=== PATIENT | female | born 1960 | race Caucasian/White ===

== ENCOUNTER 2016-10-13 09:05 | Outpatient (CLI) | payer OTHER ==
[2016-10-13] MEDS ORDERED: IOPAMIDOL-300 50 ML VIAL PO ONE (10:11)
[2016-10-13] MEDS ORDERED: IOPAMIDOL-300 100 ML VIAL IVP ONE (10:11)
[2016-10-14] MEDS ORDERED: IOPAMIDOL-300 50 ML VIAL PO ONE (08:55)
== END 2016-10-13 09:06 | disposition home or self-care (01) ==
DX: R10.9 Unspecified abdominal pain (principal); R19.7 Diarrhea, unspecified
CPT/HCPCS: 74177; Q9967

== ENCOUNTER 2018-10-05 11:27 | Outpatient (CLI) | payer BC ==
--- NOTE | 2018-10-06 16:45 | Mammography Report ---
Reason: SCREENING MAMMOGRAM FOR BREAST CANCER Procedure Date: 10/05/2018 Accession Number: [id number] / [id number] Procedure: MGN - Screening Mammo Dig Bilat CPT Code: FULL RESULT: EXAM: Screening Mammo Dig Bilat DATE: 10/05/2018 11:47 AM CLINICAL HISTORY: Routine screening. No reported personal history of breast cancer. Family history breast cancer in grandmother age 70 TECHNIQUE: Bilateral CC and MLO views were obtained. COMPARISON: None are available at the time of this dictation. Prior mammograms are from over 10 years ago. FINDINGS: The breasts demonstrate scattered fibroglandular densities bilaterally. Right breast: There is motion artifact noted of the inferior breast on the right MLO view. There is artifact which obscures a portion of the posterior lateral right breast on the cc view. Recommend technical repeat of right breast mammogram. Left breast: On the left CC view only 5 cm deep to the nipple, there is a 4 mm one view asymmetry. No suspicious calcifications. IMPRESSION: Incomplete examination RECOMMENDATION: Right breast: Technically limited right breast mammogram for reasons detailed above. Incomplete. BI-RADS Category 0. Recommend technical repeat. Left breast: 4 mm one view asymmetry left CC view. Incomplete. BI-RADS Category 0. Recommend additional views. BI-RADS CATEGORY 0: Incomplete examination STANDARD QUALIFYING STATEMENTS: 1. This examination was reviewed with the aid of Computer-Aided Detection (CAD). 2. A negative or benign imaging report should not preclude biopsy if clinically suspicious findings are present. 3. Dense breasts may obscure an underlying neoplasm. 4. This examination was reviewed without the aid of 3D breast imaging (tomosynthesis).
== END 2018-10-05 11:28 | disposition home or self-care (01) ==
LOC: DI.N 11:27
PROVIDERS: ATTEND Nurse Practitioner Primary Care
DX: Z12.31 Encounter for screening mammogram for malignant neoplasm of breast (principal); R92.8 Other abnormal and inconclusive findings on diagnostic imaging of breast; Z80.3 Family history of malignant neoplasm of breast
CPT/HCPCS: 77067

== ENCOUNTER 2018-10-20 08:42 | Outpatient (CLI) | payer BC ==
--- NOTE | 2018-10-20 11:30 | Mammography Report ---
Reason: ABNORMAL MAMMOGRAM Procedure Date: 10/20/2018 Accession Number: [id number] / [id number] Procedure: MARIA M - Diag Special Views Dig LT CPT Code: FULL RESULT: EXAM: Diag Special Views Dig LT DATE: 10/20/2018 9:34 AM CLINICAL HISTORY: Technical recall of right breast imaging. Diagnostic examination. Left breast 1 view asymmetry. TECHNIQUE: The right MLO view was performed. Left breast ML, CC and spot CC views are obtained. COMPARISON: 10/05/2018. FINDINGS: The breasts demonstrate scattered fibroglandular densities bilaterally. The previously seen left breast asymmetry resolves with 3-D imaging as well as spot compression view. No suspicious mass, architectural distortion or calcifications are seen in either breast. IMPRESSION: Negative examination RECOMMENDATION: Recommend routine annual Screening mammography unless otherwise clinically indicated. BIRADS CATEGORY 1: Negative STANDARD QUALIFYING STATEMENTS: 1. This examination was not reviewed with the aid of Computer-Aided Detection (CAD). 2. A negative or benign imaging report should not delay biopsy if clinically suspicious findings are present. Consider surgical consultation if warrented. More than 5% of cancers are not identified by imaging. 3. Dense breasts may obscure an underlying neoplasm. 4. This examination was reviewed with the aid of 3D imaging (tomography).
== END 2018-10-20 08:43 | disposition home or self-care (01) ==
LOC: DI 08:42
PROVIDERS: ATTEND Family Medicine
DX: R92.2 Inconclusive mammogram (principal)

== ENCOUNTER 2019-08-17 06:13 | Day surgery (SDC) | payer BC ==
[~2019-08-17 06:13] MED LIST: IOVERSOL 320 100 ML VIAL IVP ONE
[2019-08-17] MEDS ORDERED: LIDOCAINE-MPF 2% 5 ML VIAL IM ONE (06:14)
[2019-08-17] MEDS ORDERED: MIDAZOLAM 2 MG/2 ML VIAL IVP ONE (06:14)
[2019-08-17] MEDS ORDERED: GLYCOPYRROLATE 1 MG/5 ML VIAL IVP ONE (06:14)
[2019-08-17] MEDS ORDERED: PROPOFOL 200 MG/20 ML VIAL IVP ONE (06:14)
[2019-08-17] MEDS ORDERED: CEFAZOLIN SODIUM IN 0.9 % NACL 2 GM/100 ML BAG IV ONE (06:17)
[2019-08-17] MEDS ORDERED: LACTATED RINGERS 1,000 ML IV ONE ×2 (06:32→12:28)
--- NOTE | 2019-08-17 07:25 | ANESTHESIA ---
Pre-Anesthesia VS, & Labs - Diagnosis left olecranon fracture - Procedure left ORIF olecranon Vital Signs: Temp Pulse Resp BP Pulse Ox 37.1 C 90 16 122/87 H 97 08/17/19 06:37 08/17/19 06:37 08/17/19 06:37 08/17/19 06:37 08/17/19 06:37 Height 5 ft 5 in Weight (kg) 46.7 kg - NPO >8 hours - Is Patient ?: No - Lab Results Fish Bones: 08/17/19 06:50 Home Medications and Allergies No Known Home Medications 07/18/14 Allergies/Adverse Reactions: Allergies Allergy/AdvReac Type Severity Reaction Status Date / Time Penicillins Allergy Mild Unknown Verified 08/17/19 06:49 Anes History & Medical History - Anesthetic History Anesthesia Complications: reports: No previous complications - Medical History Cardiovascular: reports: None Pulmonary: reports: None Gastrointestinal: reports: Chronic diarrhea Urinary: reports: None Musculoskeletal: reports: None Endocrine/Autoimmune: reports: None Skin: reports: None Smoking Status: Current every day smoker - Surgical History General: Appendectomy, Colonoscopy Eyes Ears Nose Throat (EENT): Tonsil/Adenoidectomy Gynecologic: Hysterectomy Exam General: Alert Dental: WNL Mallampati classification: II Respiratory: Lungs clear Cardiovascular: Regular rate, Normal S1, Normal S2 Plan Anesthesia Type: IV Regional, Total IV, Supraclavicular Block Consent for Procedure(s) Verified and Reviewed: Yes Code Status: Attempt Resuscitation ASA classification: 2-Mild systemic disease Is this case an emergency?: No
--- NOTE | 2019-08-17 07:38 | XRAY Report ---
Reason: pre surgery c/o lf side cp with breathing Procedure Date: 08/17/2019 Accession Number: [id number] / [id number] Procedure: XR - Chest 1 View X-Ray CPT Code: 70199 Final Report FULL RESULT: EXAM: CHEST RADIOGRAPHY EXAM DATE: 08/17/2019 07:22 AM. CLINICAL HISTORY: Pre surgery c/o lf side cp with breathing. COMPARISON: XR CHEST PA AND LAT 11/09/2011 10:16 AM. TECHNIQUE: 1 view. FINDINGS: Lungs/Pleura: No focal opacities evident. No pleural effusion. No pneumothorax. Mediastinum: Within exam limitations, the cardiomediastinal contour is normal. Other: None. IMPRESSION: Normal single view chest. RADIA
--- NOTE | 2019-08-17 07:45 | PROVIDER PROGRESS NOTE ---
Subjective - Prog Note Date Prog Note Date: 08/17/19 Prog Note Time: 07:43 - Subjective Pt reports feeling: No change (Patient stated that she has had a left sided "pulled" muscle for the past day, likely from a persistent cough she and her have had. Minimal productivity in her cough. No fever or dizziness or diaphoresis.) Objective - Vital Signs/Intake & Output Vital Signs: Vital Signs x48h Temp Pulse Resp BP Pulse Ox 08/17/19 06:37 37.1 C 90 16 122/87 H 97 - Other Results/Comments Other Results/Comments: EXAM: Left UE in long arm splint. N/V ok distally Chest: RRR, S1/S2 without murmurr. No rales or wheeezing heard Assessment/Plan - Problem List (1) Closed fracture of left olecranon process Impression: Will delay OR while we work up her left sided chest pain PLAN: Consult with anesthesia. EKG- done. Await troponin levels. Observe rhythm strips. Qualifiers: Encounter type: initial encounter Qualified Code(s): S52.022A - Displaced fracture of olecranon process without intraarticular extension of left ulna, initial encounter for closed fracture
[2019-08-17 07:56] LABS: BASOPHILS # (AUTO) 0.1 10^3/uL (0.0-0.1); BASOPHILS % (AUTO) 1.2 %; EOSINOPHILS # (AUTO) 0.1 10^3/uL (0.0-0.7); EOSINOPHILS % (AUTO) 1.2 %; HGB - HEMOGLOBIN 13.6 g/dL (12.0-16.0); LYMPHOCYTES # (AUTO) 1.7 10^3/uL (1.5-3.5); LYMPHOCYTES % (AUTO) 18.5 %; MEAN CORPUSCULAR HEMOGLOBIN 34.9 pg (27.0-31.0); MEAN CORPUSCULAR HGB CONC 34.5 g/dL (32.0-36.0); MEAN PLATELET VOLUME 8.6 fL (7.9-10.8); MONOCYTES # (AUTO) 1.1 10^3/uL (0.0-1.0); MONOCYTES % (AUTO) 12.4 %; NEUTROPHILS % (AUTO) 65.8 %; PLT - PLATELET COUNT 390 10^3/uL (130-450); RED CELL DISTRIBUTION WIDTH 11.9 % (12.0-15.0); WHITE BLOOD COUNT 9.1 x10^3/uL (4.8-10.8)
--- NOTE | 2019-08-17 09:12 | CONSULTATION NOTE ---
Referring Provider Name of Referring Provider:: Dr. Quincy Berry Consult Date: 08/17/19 Chief Complaint - Chief Complaint Chief Complaint: Left sided chest pain History of Present Illness - Admitted From Admitted From:: Home - History Obtained From Records Reviewed: Yes History obtained from: Patient, Spouse, Anesthesia, Orthopedics - History of Present Illness HPI Comment/Other: This is a 59-year-old female who smokes a pack and 1/2/day who is here today as a same-day surgery for a fracture of her left olecranon. She is scheduled to undergo surgery with orthopedic surgery this morning. Upon arrival to [facility], she was complaining of left-sided chest pain that began yesterday. Medicine was consulted for further evaluation. The patient states her pain began yesterday and she feels that it is like a pulled muscle. It is located over the left side of her chest. She cannot clarify if it is sharp or pressure-like in nature. The pain is about 2 out of 10 and is nonradiating. The pain is only present when she takes a deep breath. It is located over the anterior side of the left chest. She reports no nausea, vomiting, diaphoresis. The pain is not worse with exertion. She is able to walk a flight of stairs and clean around her home without chest pain or dyspnea. She reports no prior cardiac history. She is adopted and is unaware of her family history. She states she did have a stress test about 10 years ago for reasons she cannot recall but that it was normal. She is nondiabetic or have a history of hypertension. She does smoke a half a pack a day and has been smoking for 40 years. She reports no lower extremity edema or prior history of arrhythmia. She states she has been sick with cold- like symptoms over the past couple of weeks and her as well had similar symptoms. 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 Living arrangement: At home Living Situation: With spouse/s.o. Social History Notes: She smokes a half a pack a day and has been smoking for over 40 years. She drinks 1 to 2 glasses of wine on a daily basis. - Substance History Use: Uses substance without health or social issues: Tobacco - POLST Patient has POLST: No Meds/Allgy - Home Medications Home Medications: Ambulatory Orders Medication Instructions Recorded Confirmed No Known Home Medications 07/18/14 08/17/19 - Allergies Allergies/Adverse Reactions: Allergies Allergy/AdvReac Type Severity Reaction Status Date / Time Penicillins Allergy Mild Unknown Verified 08/17/19 06:49 Review of Systems - Constitutional Constitutional: denies: Fatigue, Fever, Chills - Cardiovascular Cariovascular: reports: Chest pain. denies: Irregular heart rate, Palpitations, Edema, Lightheadedness, Exertional dyspnea, Decr. exercise tolerance - Respiratory Respiratory: reports: Cough. denies: Wheezing, SOB at rest, SOB with exertion - Gastrointestinal Gastrointestinal: denies: Abdominal pain, Nausea, Vomiting - All Other Systems All Other Systems: reports: Reviewed and negative Exam - Vital Signs Reviewed Vital Signs: Yes Vital Signs: Vital Signs x48h Temp Pulse Resp BP Pulse Ox 08/17/19 06:37 37.1 C 90 16 122/87 H 97 - Physical Exam General Appearance: positive: No acute distress, Alert Eyes Bilateral: positive: Normal inspection, Conjunctivae nml ENT: positive: ENT inspection nml Neck: positive: Nml inspection Respiratory: positive: Chest non-tender (She has tenderness over the anterior left chest.), No respiratory distress, Other (Diminished breath sounds bilaterally.). negative: Wheezes, Rales, Rhonchi Cardiovascular: positive: Regular rate & rhythm, No murmur. negative: Irregularly irregular, Tachycardia, Bradycardia, Systolic murmur, Diastolic murmur Abdomen: positive: Non-tender, No distention. negative: Tenderness, Guarding, R ebound Skin: positive: No rash, Warm, Dry Extremities: positive: No pedal edema, Other (There is a bandage in place over the left upper extremity.) Neurologic/Psychiatric: positive: Oriented x3. negative: Disoriented to person, Disoriented to place, Disoriented to time Conclusion/Plan - Diagnosis Diagnosis: 1) Atypical chest pain. 2) Preop evaluation - Plan Plan: Her chest pain is atypical in nature and suspect secondary to costochondritis. Her chest is tender on exam and her pain is only present with deep breaths. This may have been exacerbated by her recent cold. Her EKG showed a sinus rhythm without any acute ST segment changes. Troponin was checked and this was negative. Her only risk factors for coronary artery disease are her smoking. She reports a normal stress test about 10 years ago. She is able to function greater than 4 METS without chest pain or dyspnea. The etiology of her chest pain is unlikely to be of cardiac nature given her current presentation. Patient would like to proceed with intervention and I feel that this is reasonable. At this point, further cardiac work-up would likely be of no benefit. The patient is optimized from medical standpoint for orthopedic intervention. Agree with anesthesia that if possible, the patient can have a regional block placed and have sedation with propofol and Versed. - Lab Results Lab results reviewed: Yes Fish Bones: 08/17/19 06:50 - Diagnostic Imaging Results Diagnostic Imaging Results: positive: Final report reviewed - EKG Results EKG Interpreted Independently: Yes EKG Comparison: No prior EKG EKG Findings: EKG reveals a sinus rhythm without acute ST segment changes.
[2019-08-17] MEDS ORDERED: BUPIVACAINE 0.25% PF 30 ML VIAL ONE (10:20)
[2019-08-17] MEDS ORDERED: ROPIVACAINE 0.5% PF 20 ML AMPULE ONE (10:23)
[2019-08-17] MEDS ORDERED: BUPIVACAINE 0.25% PF 30 ML VIAL SUBQ ONE (11:23)
[2019-08-17] MEDS ORDERED: ONDANSETRON 4 MG/2 ML VIAL IVP PRN (12:15)
[2019-08-17] MEDS ORDERED: HYDROcod/ACETAM 5/325 MG TABLET PO PRN (12:15)
--- NOTE | 2019-08-17 12:25 | OPERATIVE REPORT ---
Operative Report - General Procedure Date: 08/17/19 Planned Procedure: ORIF Left olecranon fracture with tension band wiring Pre-Op Diagnosis: Closed, distracted left olecranon fracture Procedure Performed: ORIF left olecranon fracture with tension band wiring Post Op Diagnosis: Same - Procedure Note Primary Surgeon: Shaina Berry MD Anesthesia Provider: Ethan Sheridan CRNA Anesthesia Technique: Regional block IV Fluids (mL): 500 Estimated Blood Loss (mL): 10 Complications: None
--- NOTE | 2019-08-17 12:54 | OPERATIVE REPORT ---
DATE OF SERVICE: 08/17/2019 Physician: Quincy Berry MD PREOPERATIVE DIAGNOSIS: Closed distracted left olecranon fracture. POSTOPERATIVE DIAGNOSIS: Closed distracted left olecranon fracture. PROCEDURE PERFORMED: Open reduction and internal fixation of left olecranon fracture using tension b and wiring technique. SURGEON: Quincy Berry MD ANESTHESIA: Regional block. DESCRIPTION OF PROCEDURE: Patient was taken to the operating room on the morning of her surgery, whe re she had a regional peripheral nerve block to provide anesthesia around the elbow. Preoperatively on the day of her surgery, she had complained of about a 24-hour history of some mild left-sided, bry[address] pain. This was worked up preoperatively by both anesthesia and the hospitalist service. It was c oncluded that this would not prevent us from proceeding with surgery. Once adequate anesthesia was o btained, we then applied arm pneumatic tourniquet to the left upper extremity then prepped and draped the left arm free in the usual fashion for our procedure. After 30 seconds of gravity exsanguination, we did inflate the arm pneumatic tourniquet to 250 mmHg p ressure. We then made a curvilinear skin incision centered over the olecranon to the left elbow. We then came across the fracture. We evacuated the fracture hematoma using a curette and a rongeur. W e were then able to grab the olecranon fragment and reduce this under direct vision to the proximal u hair spinner bed. This was held in place using a towel clip reduction clamp. Fluoroscopic views in AP and la teral projections then showed that we had a good reduction of our previously displaced olecranon frac ture. At this point, we then drilled two 0.062 inch smooth K-wires longitudinally in the parallel fa shion across our fracture. Fluoroscopic view showed satisfactory placement of our pin as well as chelsea ntenance of the reduction of our fracture. Making a transverse hole in the proximal ulnar shaft dist al to the fracture using a 0.062 inch smooth K-wire. We then removed the K-wire following it with a #18 stainless steel guidewire. This guidewire was then used to create a pbqgwu-pc-jipfx configuratio n incorporating the two longitudinal K-wires which we had just inserted. We then proceeded to tighte n this wckgrf-qg-lytjg K-wire until we had a snug tension on the sirjri-ao-fwgok wire and on the 2 lo ngitudinal K-wires that had been inserted in the proximal ulna. Fluoroscopic views again showed main tenance of the fracture reduction and appeared to have also some compression of our fracture as well. Satisfied with this, we then bent our K-wires to 90 degrees and cut the ends of the pins proudly. T hese were then rotated to be less prominent. Also, the wire knot that was used to tighten our figure -of-eight configuration was then cut proud as well and bent to have the ends up against the proximal ulna. Final x-rays were then taken in AP and lateral projection, which again showed satisfactory yudy cement of hardware and good reduction of our olecranon fracture. We then irrigated out the wound wit h saline. We then closed the wound in layers using buried simple stitches of 2-0 Vicryl to approxima te the subcutaneous tissues, followed by skin segundo to approximate the skin edge. We then dressed the wound with Xeroform gauze, 4 x 4's, sterile Webril, and a long-arm posterior splint applied to th e extremity. This was all done after we released the tourniquet. Patient then transferred to the re covery room in satisfactory condition. ESTIMATED BLOOD LOSS: 10 mL REPLACEMENT: 500 mL of crystalloid. TOURNIQUET TIME: 44 minutes. INTRAOPERATIVE COMPLICATIONS: None. PLAN: Patient will be discharged when stable. Follow up in about 10-14 days for wound inspection an d removal of skin segundo. Have her kept in a long-arm posterior splint for approximately 1 month's time, at which point if x-rays still look good, we will probably start moving her in therapy with act evelyn range of motion of the elbow. TD: 08/17/2019 12:36
[2019-08-17 13:29] VITALS: BP 112/69
--- NOTE | 2019-08-17 13:34 | XRAY Report ---
Reason: ORIF OLECRANON Procedure Date: 08/17/2019 Accession Number: [id number] / [id number] Procedure: FL - OR C-Arm Procedure CPT Code: Final Report FULL RESULT: EXAM: FLUOROSCOPIC GUIDANCE EXAM DATE: 08/17/2019 12:03 PM. CLINICAL HISTORY: ORIF OLECRANON. COMPARISON: None. FINDINGS: Intraprocedural fluoroscopy was provided for guidance and anatomic localization. See procedure report for further details. IMPRESSION: Fluoroscopic guidance provided for Dr. Hernández. Total fluoroscopy time: 20 seconds. Number of images: 2. RADIA
== END 2019-08-17 06:14 | disposition home or self-care (01) ==
LOC: SDS 06:13
PROVIDERS: ATTEND Orthopaedic Surgery
PROC: 0PSL04Z Reposition Left Ulna with Internal Fixation Device, Open Approach (ICD-10-PCS; principal; 2019-08-17 07:30)
DX: S52.022A Displaced fracture of olecranon process without intraarticular extension of left ulna, initial encounter for closed fracture (principal); F17.210 Nicotine dependence, cigarettes, uncomplicated; R07.9 Chest pain, unspecified
CPT/HCPCS: 24685; 71045; 84484; 85025; 93005; C1713; J0690; J7120

== ENCOUNTER 2019-09-04 16:00 | Outpatient (CLI) | payer BC ==
--- NOTE | 2019-09-05 09:31 | CT Report ---
Reason: FRACTURE OF UPPER END OF LT ULNA Procedure Date: 09/04/2019 Accession Number: [id number] / [id number] Procedure: CT - UPPER EXTREMITY WO - LT CPT Code: Final Report FULL RESULT: EXAM: LEFT ELBOW CT WITHOUT CONTRAST EXAM DATE: 09/04/2019 04:31 PM. CLINICAL HISTORY: Fracture of upper end of left ulna. COMPARISON: ELBOW 2 VIEW LT 08/31/2019 4:08 PM. XR ELBOW LT MIN 3V 08/10/2019 12:53 PM. TECHNIQUE: Thin-section axial images were acquired of the elbow without contrast. Post-processing: Coronal and sagittal reformats. Other: None. In accordance with CT protocol optimization, one or more of the following dose reduction techniques were utilized for this exam: automated exposure control, adjustment of mA and/or KV based on patient size, or use of iterative reconstructive technique. FINDINGS: Bones and articular surfaces: There are postsurgical changes of internal fixation for comminuted fracture of the proximal ulna. Large transverse defect at the base of the olecranon with an ill-defined approximately 41.4 cm long gap between the proximal olecranon fragment and the main distal portion of the ulna. Cerclage wire at the proximal ulna. The two fixation nails, one of which traverses the proximal fragment. At the radial margin of the olecranon there is approximately a 5 mm distraction at the articular surface without significant step-off. Towards the ulnar margin of the articular surface of the coronoid there is comminution. Maximum articular surface distraction approximately 7 mm. Maximum articular surface step-off approximately 1.2 mm. The radial head appears normally located with respect to the capitellum as well as normal location at the proximal radioulnar joint. Soft tissues: Ill-defined soft tissue edema at the posterior margin of the elbow. No obvious discrete fluid collection identified. No appreciable soft tissue gas. No muscle atrophy or fatty replacement within the field of view. IMPRESSION: 1. Comminuted intra-articular fracture of the proximal ulna, mainly comminuted fracture across the base of the olecranon. Maximum distraction approximately 14 mm. Maximum articular surface distraction approximately 7 mm. Maximum articular surface step-off 1.2 mm. RADIA
== END 2019-09-04 16:01 | disposition home or self-care (01) ==
LOC: DI 16:00
PROVIDERS: ATTEND Orthopaedic Surgery Sports Medicine
DX: S52.092A Other fracture of upper end of left ulna, initial encounter for closed fracture (principal)

== ENCOUNTER 2019-09-06 09:17 | Day surgery (SDC) | payer BC ==
[~2019-09-06 09:17] MED LIST changes: +CEFAZOLIN SODIUM IN 0.9 % NACL 2 GM/100 ML BAG IV ONE; -IOVERSOL 320 100 ML VIAL IVP ONE
[2019-09-06] MEDS ORDERED: ACETAMINOPHEN 1,000 MG/100 ML 100 ML IV ONE ×3 (11:07→11:34)
[2019-09-06] MEDS ORDERED: CELECOXIB 100 MG CAPSULE PO STA (11:09)
[2019-09-06] MEDS ORDERED: ROPIVACAINE 0.5% PF 20 ML AMPULE ONE (11:09)
[2019-09-06] MEDS ORDERED: CELECOXIB 100 MG CAPSULE PO ONE (11:09)
[2019-09-06] MEDS ORDERED: GABAPENTIN 400 MG CAPSULE ONE (11:09)
--- NOTE | 2019-09-06 11:16 | ANESTHESIA ---
Pre-Anesthesia VS, & Labs - Diagnosis left failed olecranon ORIF - Procedure left elbow revision ORIF internal fixation Vital Signs: Temp Pulse Resp BP Pulse Ox 36.3 C L 87 16 137/94 H 100 09/06/19 09:22 09/06/19 09:22 09/06/19 09:22 09/06/19 09:22 09/06/19 09:22 Height 5 ft 5 in Weight (kg) 46 kg - NPO >8 hours - Is Patient ?: No Home Medications and Allergies Active Medications Celecoxib (Celebrex) 400 mg PO BID STA Stop: 09/06/19 11:10 Gabapentin (Neurontin) 800 mg PO ONCE STA Stop: 09/06/19 11:09 Acetaminophen (Ofirmev) 100 mls @ 400 mls/hr IV ONCE ONE Stop: 09/06/19 11:21 No Known Home Medications 07/18/14 Allergies/Adverse Reactions: Allergies Allergy/AdvReac Type Severity Reaction Status Date / Time Penicillins Allergy Mild Unknown Verified 08/17/19 06:49 Anes History & Medical History - Anesthetic History Anesthesia Complications: reports: No previous complications - Medical History Cardiovascular: reports: None Pulmonary: reports: None Gastrointestinal: reports: Chronic diarrhea Urinary: reports: None Musculoskeletal: reports: None Endocrine/Autoimmune: reports: None Skin: reports: None Smoking Status: Current every day smoker - Surgical History General: Appendectomy, Colonoscopy Eyes Ears Nose Throat (EENT): Tonsil/Adenoidectomy Gynecologic: Hysterectomy Exam General: Alert Dental: WNL, Partials Upper, Partials Lower Mouth Opening: Greater than 4 Fingerbreadths Neck Mobility: Normal Mallampati classification: II Thyromental Distance: greater than 6 cm Respiratory: Lungs clear Cardiovascular: Regular rate, Normal S1, Normal S2 Mental/Cognitive Status: Alert/Oriented X3 Plan Anesthesia Type: General Consent for Procedure(s) Verified and Reviewed: Yes Code Status: Attempt Resuscitation ASA classification: 2-Mild systemic disease Is this case an emergency?: No
[2019-09-06] MEDS ORDERED: LACTATED RINGERS 1,000 ML IV ONE ×2 (11:34→13:24)
[2019-09-06] MEDS ORDERED: LIDOCAINE-MPF 2% 5 ML VIAL IM ONE (11:34)
[2019-09-06] MEDS ORDERED: DEXAMETHASONE 4 MG/ML VIAL IVP ONE (11:34)
[2019-09-06] MEDS ORDERED: ROCURONIUM 50 MG/5 ML VIAL IVP ONE (11:34)
[2019-09-06] MEDS ORDERED: MIDAZOLAM 2 MG/2 ML VIAL IVP ONE (11:34)
[2019-09-06] MEDS ORDERED: PROPOFOL 200 MG/20 ML VIAL IVP ONE (11:34)
[2019-09-06] MEDS ORDERED: fentaNYL 100 MCG/2 ML VIAL IVP ONE (11:34)
[2019-09-06] MEDS ORDERED: ONDANSETRON 4 MG/2 ML VIAL IVP ONE (11:34)
[2019-09-06] MEDS ORDERED: GABAPENTIN 400 MG CAPSULE PO STA (12:17)
--- NOTE | 2019-09-06 14:36 | IMMEDIATE POSTOPERATIVE NOTE ---
Immediate Postoperative Note - Procedure Note Procedure Date: 09/06/19 Pre-Op Diagnosis: left failed olecranon orif Procedure: Left revision olecranon open reduction internal fixation Post-Op Diagnosis: Same Primary Surgeon: Lali Dunn Office Machine Technician: eliana Anesthesia Type: General ET tube, Regional block Findings: as above Complications: No complications Estimated Blood Loss (in cc): 25 Specimens and Cultures: na Plan of Care: Patient Zeb procedure well instrument sponge counts correct patient is transferred recovery room in stable condition Should be nonweightbearing left upper extremity should avoid any active attempts at elbow motion should keep splint clean dry intact use sling and be encouraged to move hand and wrist as tolerated.Icing and elevation recommended
[2019-09-06] MEDS ORDERED: HYDROcod/ACETAM 5/325 MG TABLET PO PRN (14:37)
[2019-09-06] MEDS ORDERED: HYDROcod/ACETAM 10 MG/325 MG TABLET PO PRN (14:37)
[2019-09-06] MEDS ORDERED: ONDANSETRON 4 MG/2 ML VIAL IVP PRN (14:37)
[2019-09-06 15:30] VITALS: BP 154/80
--- NOTE | 2019-09-07 19:01 | OPERATIVE REPORT ---
DATE OF SERVICE: 09/06/2019 Physician: Kristian Dunn MD SURGEON: Kristian Dunn MD ENTERPRISE INTEGRATION ARCHITECT: None. ANESTHESIOLOGIST: Umberto Ku CRNA. ANESTHESIA TYPE: Left upper extremity regional block under ultrasound guidance as well as general en dotracheal anesthesia. FLUIDS: 500 mL lactated Ringer's. TOURNIQUET TIME: 102 minutes at 250 mmHg. ESTIMATED BLOOD LOSS: 25 mL PREOPERATIVE ANTIBIOTICS: Weight-based IV Ancef 2 g. ORTHOPEDIC IMPLANTS: An 18-gauge wire as well as 2 x 0.062 K-wire. HISTORY OF PRESENT ILLNESS: Patient is a 59-year-old female who sustained an olecranon fracture, a n umber of weeks ago, had an open reduction and internal fixation, which ultimately failed. She is ind icated for revision surgery. Risks, benefits, alternatives previously reviewed with her and her husb and again highlighted in the preoperative care unit. The patient's questions were answered. She akira balized understanding of the above and verbalized her wish to proceed with operative treatment. Info rmed consent is given. PREOPERATIVE DIAGNOSIS: Left failed olecranon open reduction internal fixation. POSTOPERATIVE DIAGNOSIS: Left failed olecranon open reduction internal fixation. PROCEDURE PERFORMED: 1. Left revision open reduction and internal fixation of olecranon fracture. 2. Left elbow removal of hardware. OPERATIVE FINDINGS: Show failed olecranon open reduction internal fixation with small fragments with some comminution of the proximal fragment attached to the triceps. The K-wires are noted to be loos e and intra-articular, one of which is adjacent to, if not in, the cubital tunnel. The cerclage wire is subcutaneous below soft tissues. Post-revision fixation, there is good apposition of the bony fragments. There is demonstrable extraa rticular hardware based on fluoroscopic and direct visualization. There is good integrity of the rep air with flexion and extension of the elbow and pronation and supination of the forearm without any s ignificant movement at the fracture site. DESCRIPTION OF PROCEDURE: On 09/06/2019, patient is identified in the preoperative care unit. She i dentifies left elbow as operative site. This is signed by operating surgeon. Patient received preoperative weight-based IV antibiotics. She is brought to the operating room afte r pause identifying site and ultrasound-guided regional block. Patient is brought to the operating room. General anesthesia is administered, then she is placed rig ht side down lateral decubitus position with appropriately placed axillary roll to avoid encumbrance of the axilla. Head, neck and extremities placed in anatomically comfortable and safe position to av oid peripheral nerve stretch and compression. Down leg is gel padded. SCD boots are in place. The patient's left upper extremity is draped over a flat padded arm rest. Splint is removed. Tourniquet is placed high on the left arm with appropriate padding taking care to avoid encumbrance o f the axilla. Left upper extremity then has some eschar removed from the posterior incision and then this is pre-scrubbed with Hibiclens solution, then alcohol, followed by ChloraPrep and drape under s terile conditions. At this time, surgical pause identifies left elbow as operative site. Exsanguination with Esmarch ba ndage is used. Tourniquet is inflated at which point the previous incision is made through skin and then spreading dissection carried out to the tip of the olecranon where 18-gauge wire is encountered, cut and then removed. The K-wires are deeper in the gap of the olecranon fracture. Hematoma is rem royal. This is irrigated and then there is one that is more central and then one is more noted to be ulnar adjacent to the cubital tunnel. This is extracted away from the cubital tunnel and the ulnar n erve. Once all the hardware is removed, attention is directed towards defining the fracture fragment s. The wound is copiously irrigated. The joint is examined and noted to have some comminution at th e joint level. Then a [id number]-kb-[id number] reduction clamp and dental pick are used to reduce the major pr oximal fracture fragment to the distal. This is held and confirmed to be acceptably reduced not only under direct visualization, but also fluoroscopic image. At this point, 2 K-wires are placed in an approximately parallel position and placed just beneath the articular cartilage and the subchondral b one, but taking care to avoid any penetration of the joint itself. These are confirmed to be in acce ptable position with fluoroscopic image and then cerclage [id number] tension band technique is u sed. The wire is passed underneath the triceps directly on bone using a 14-gauge Angiocath and then it is twisted appropriately and then passed through a 0.062 mm K-wire drilled hole in the ulna. The wire is passed and then in parallel the medial and lateral sides are tightened using pliers thereby c ompleting the tension band structure. These twists are then cut appropriately and bent over to be di rectly on the bone and away from significant soft tissue impingement. The proximal ends of the K-wir es are then bent over cut and then twisted such that they would capture the cerclage and then impact it distally so that they were beneath the level of the triceps is then sewed over the ends of the wir e. Nothing is noted to be significantly prominent such that the intention would be to avoid soft tis isabela irritation. The joint is examined and noted to have smooth range of motion without any intraarti cular hardware under direct visualization, but also under fluoroscopic image. At this time, the wound is copiously irrigated. Fascia and periosteum closed over the construct and then the skin is closed in layered fashion using 0 Vicryl, 2-0 Vicryl, and interrupted nylon suture. It should be noted that hemostasis and copious irrigation was performed at every level. At this point, the skin is washed and dried. Xeroform dressing is applied. Dry sterile dressings ap plied. The patient is placed in a posterior splint, which is well-padded in approximately neutral. Patient tolerated the procedure well. Instrument and sponge counts were correct. Patient is transfe rred to recovery room in stable condition. Case discussed with patient's . Postoperative instructions will be nonweightbearing on the le ft upper extremity, should avoid any elbow range of motion. She will be encouraged to do hand and wr ist motion. She will be in a sling, ice and elevate, but avoid lift, push, pull left upper extremity . She will be extremely cautious given the fact that she had fallen since her first surgery. She is given perioperative pain medication and perioperative antibiotics. She denied any contraindic ation to medication plan and will use them as directed, and follow up in 10-14 days or sooner should problems or questions arise. Patient's 's questions are answered as are the patient's preoper atively. They verbalize agreement and satisfaction with plan as outlined. TD: 09/07/2019 15:06
--- NOTE | 2019-09-12 11:28 | XRAY Report ---
Reason: ORIF LEFT ELBOW Procedure Date: 09/06/2019 Accession Number: [id number] / [id number] Procedure: [place] - OR C-Arm Procedure CPT Code: Final Report FULL RESULT: EXAM: FLUOROSCOPIC GUIDANCE EXAM DATE: 09/06/2019 01:46 PM. CLINICAL HISTORY: ORIF left elbow. COMPARISON: OR C-ARM PROCEDURE 08/17/2019. FINDINGS: A total of three fluoroscopic capture images in the lateral and AP projection at multiple time points demonstrate placement of Hailee wires and placement of a tension band construct, limited evaluation. IMPRESSION: Fluoroscopic guidance provided for operative fixation of the left elbow fracture. Total fluoroscopy time: 0.4 minutes. Number of images: 3. RADIA
== END 2019-09-06 09:18 | disposition home or self-care (01) ==
LOC: SDS 09:17
PROVIDERS: ATTEND Orthopaedic Surgery Sports Medicine
PROC: 0PPL04Z Removal of Internal Fixation Device from Left Ulna, Open Approach (ICD-10-PCS; 2019-09-06)
PROC: 0PSL04Z Reposition Left Ulna with Internal Fixation Device, Open Approach (ICD-10-PCS; principal; 2019-09-06 10:45)
DX: S52.022A Displaced fracture of olecranon process without intraarticular extension of left ulna, initial encounter for closed fracture (principal); F17.200 Nicotine dependence, unspecified, uncomplicated; Z91.81 History of falling
CPT/HCPCS: 24685; A9270; J0131; J0690; J7120

== ENCOUNTER 2020-01-02 07:29 | Outpatient (CLI) | payer BC ==
--- NOTE | 2020-01-02 09:35 | XRAY Report ---
Reason: LEFT UPPER END ULNA FRACTURE Procedure Date: 01/02/2020 Accession Number: [id number] / [id number] Procedure: WCP - Elbow 3 View LT CPT Code: Final Report FULL RESULT: PROCEDURE: Elbow 3 View LT INDICATIONS: LEFT UPPER END ULNA FRACTURE TECHNIQUE: 3 views of the elbow were acquired. COMPARISON: 2 views of the elbow dated 09/18/2019, 2 views of the elbow dated 08/31/2019 FINDINGS: Bones: Postoperative changes redemonstrated at the proximal ulna. There is increased interval healing at the proximal ulnar fracture No acute fracture or dislocation. Hardware is in unchanged anatomic alignment. Soft tissues: No elbow joint effusion. No suspicious soft tissue calcifications. IMPRESSION: Interval healing and stable postoperative change. Reviewed by: Nichol Ward MD on 01/02/2020 9:34 AM PDT Approved by: Nichol Ward MD on 01/02/2020 9:34 AM PDT Station ID: [id number]
== END 2020-01-02 23:59 | disposition home or self-care (01) ==
LOC: DI.WCP 07:29
PROVIDERS: ATTEND Orthopaedic Surgery
DX: S52.002D Unspecified fracture of upper end of left ulna, subsequent encounter for closed fracture with routine healing (principal)

== ENCOUNTER 2020-09-25 10:25 | Outpatient (CLI) | payer BC ==
--- NOTE | 2020-09-26 07:24 | Mammography Report ---
BILATERAL DIGITAL SCREENING MAMMOGRAM 3D/2D: 09/25/2020 CLINICAL: Routine screening. Comparison is made to exams dated: 10/05/2018 mammogram and 10/20/2018 mammogram - [facility]. There are scattered fibroglandular elements in both breasts. There is an 8 mm focal asymmetry in the right breast central to the nipple middle depth. This is mor e prominent. No other significant masses, calcifications, or other findings are seen in either breast. IMPRESSION: INCOMPLETE: NEEDS ADDITIONAL IMAGING EVALUATION The 8 mm focal asymmetry in the right breast is indeterminate. Additional views with possible ultras ound are recommended. This exam was interpreted at Station ID: [id number]. NOTE: For mammograms, a report in lay terms will be sent to the patient. Approximately 15% of breast malignancies will not be visualized mammographically. In the management of a palpable breast mass, a negative mammogram must not discourage biopsy of a clinically suspicious lesion. Electronically Signed By: Filiberto rader/[place]:09/25/2020 11:47:01 ACR BI-RADS Category 0: Incomplete 3340F PARENCHYMAL PATTERN: (A) - The breast(s) demonstrate(s) scattered fibroglandular densities. BI-RADS CATEGORY: (0) - 0 Mammo and [place] [id number] Immediate follow-up LATERALITY: (R)
== END 2020-09-25 10:26 | disposition home or self-care (01) ==
LOC: DI.N 10:25
DX: Z12.31 Encounter for screening mammogram for malignant neoplasm of breast (principal); N64.89 Other specified disorders of breast

== ENCOUNTER 2020-10-10 09:12 | Outpatient (CLI) | payer BC ==
--- NOTE | 2020-10-11 08:53 | Mammography Report ---
UNILATERAL RIGHT DIGITAL DIAGNOSTIC MAMMOGRAM 3D/2D: 10/10/2020 CLINICAL: Patient returns today to evaluate a focal asymmetry in the right breast. Comparison is made to exams dated: 09/25/2020 mammogram, 10/20/2018 mammogram, 10/05/2018 mammogram - [facility], and 08/14/2014 mammogram - [facility]. There are scattered fibroglan dular elements in right breast. There is an oval equal density focal asymmetry with an indistinct and circumscribed margin in the rig ht breast central to the nipple middle depth. No other significant masses or calcifications are seen in the breast. IMPRESSION: INCOMPLETE: NEEDS ADDITIONAL IMAGING EVALUATION The oval equal density focal asymmetry in the right breast is indeterminate. An ultrasound is recomm ended. Ultrasound will be performed immediately following the current exam. This exam was interpreted at Station ID: [id number]. NOTE: For mammograms, a report in lay terms will be sent to the patient. Approximately 15% of breast malignancies will not be visualized mammographically. In the management of a palpable breast mass, a negative mammogram must not discourage biopsy of a clinically suspicious lesion. Electronically Signed By: Anibal Calix M.D. ddp/:10/10/2020 09:44:31 ACR BI-RADS Category 0: Incomplete 3340F PARENCHYMAL PATTERN: (A) - The breast(s) demonstrate(s) scattered fibroglandular densities. BI-RADS CATEGORY: (0) - 0 Ultrasound [id number] Immediate follow-up LATERALITY: (B)
--- NOTE | 2020-10-11 08:53 | Ultrasound Report ---
LIMITED ULTRASOUND OF RIGHT BREAST: 10/10/2020 CLINICAL: Patient returns today to evaluate a focal asymmetry in the right breast. Comparison is made to exams dated: 10/10/2020 mammogram, 09/25/2020 mammogram, 10/20/2018 mammogram, 09/23 mammogram - [facility], and 08/14/2014 mammogram - [facility]. Color flow and real-time ultrasound of the right breast 9 o'clock, and retroareolar regions were perf ormed on the areas of interest. There is a benign 0.5 cm x 0.3 cm x 0.5 cm oval cyst in the right breast at 9 o'clock middle depth. This oval cyst is anechoic with a well-defined boundary and posterior acoustic enhancement. This lik indira correlates with mammography findings. Color flow imaging demonstrates that there is no vasculari ty present. IMPRESSION: BENIGN There is no sonographic evidence of malignancy. The oval cyst in the right breast is consistent with a simple cyst and is benign. A 1 year screening mammogram is recommended. This exam was interpreted at Station ID: [id number]. Electronically Signed By: Anibal Calix M.D. ddp/:10/10/2020 10:57:31 Ultrasound BI-RADS: 2 Benign BI-RADS CATEGORY: (2) - 2 RECOMMENDATION: (ANNUAL) - Recommend routine annual screening mammography. [id number] 1 year screening LATERALITY: (B)
== END 2020-10-10 09:13 | disposition home or self-care (01) ==
LOC: DI 09:12
PROVIDERS: ATTEND Family Medicine
DX: R92.8 Other abnormal and inconclusive findings on diagnostic imaging of breast (principal); N60.01 Solitary cyst of right breast

== ENCOUNTER 2020-11-01 11:04 | Outpatient (CLI) | payer BC ==
[2020-11-01 18:26] LABS: BASOPHILS # (AUTO) 0.1 10^3/uL (0.0-0.1); BASOPHILS % (AUTO) 1.2 %; EOSINOPHILS # (AUTO) 0.1 10^3/uL (0.0-0.7); HCT - HEMATOCRIT 41.2 % (37.0-47.0); HGB - HEMOGLOBIN 14.2 g/dL (12.0-16.0); LYMPHOCYTES # (AUTO) 1.9 10^3/uL (1.5-3.5); LYMPHOCYTES % (AUTO) 27.7 %; MEAN CORPUSCULAR HEMOGLOBIN 36.1 pg (27.0-31.0); MEAN CORPUSCULAR HGB CONC 34.5 g/dL (32.0-36.0); MEAN CORPUSCULAR VOLUME 104.8 fL (81.0-99.0); MONOCYTES # (AUTO) 0.6 10^3/uL (0.0-1.0); MONOCYTES % (AUTO) 8.3 %; NEUTROPHILS # (AUTO) 4.2 10^3/uL (1.5-6.6); NEUTROPHILS % (AUTO) 61.7 %; PLT - PLATELET COUNT 292 10^3/uL (130-450); RED BLOOD COUNT 3.93 10^6/uL (4.20-5.40); RED CELL DISTRIBUTION WIDTH 12.3 % (12.0-15.0); WHITE BLOOD COUNT 6.9 x10^3/uL (4.8-10.8)
[2020-11-01 18:55] LABS: ALBUMIN 4.4 g/dL (3.2-5.5); ALBUMIN/GLOBULIN RATIO 1.2 (1.0-2.2); ALKALINE PHOSPHATASE 82 IU/L (42-121); ALT ALANINE AMINOTRANSFERASE 19 IU/L (10-60); AST ASPARTATE AMINOTRANSFERASE 24 IU/L (10-42); BILIRUBIN,TOTAL 0.3 mg/dL (0.2-1.0); BUN - BLOOD UREA NITROGEN 6 mg/dL (6-20); CALCIUM 9.2 mg/dL (8.5-10.3); CARBON DIOXIDE - CO2 27 mmol/L (21-32); CHLORIDE 94 mmol/L (101-111); CHOL/HDL RATIO 1.6 (<4.4); CHOLESTEROL 209 mg/dL; CREATININE 0.5 mg/dL (0.4-1.0); GFR - MDRD 126 (>89); GLUCOSE 75 mg/dL (70-100); HDL CHOLESTEROL 131 mg/dL; LDL CHOLESTEROL,CALCULATED 59 mg/dL; LDL/HDL RATIO 0.5 (<4.4); POTASSIUM 4.1 mmol/L (3.5-5.0); SODIUM 131 mmol/L (135-145); TRIGLYCERIDES 97 mg/dL; VLDL CHOLESTEROL 19 mg/dL
[2020-11-01 19:09] LABS: THYROID STIMULATING HORMONE 0.89 uIU/mL (0.34-5.60)
== END 2020-11-01 11:05 | disposition home or self-care (01) ==
LOC: LAB.N 11:04
PROVIDERS: ATTEND Family Medicine
DX: Z00.00 Encounter for general adult medical examination without abnormal findings (principal); R03.0 Elevated blood-pressure reading, without diagnosis of hypertension; R19.7 Diarrhea, unspecified; F10.10 Alcohol abuse, uncomplicated; E78.5 Hyperlipidemia, unspecified; Z13.29 Encounter for screening for other suspected endocrine disorder
CPT/HCPCS: 36415; 80053; 80061; 83721; 84443; 85025

== ENCOUNTER 2021-01-27 09:33 | Outpatient (CLI) | payer BC ==
--- NOTE | 2021-01-27 11:58 | XRAY Report ---
PROCEDURE: Cervical Spine 2 View INDICATIONS: NECK PX TECHNIQUE: 2 view(s) of the cervical spine were acquired. COMPARISON: None. FINDINGS: Bones: No fractures or dislocations to the C7 level. The odontoid and lateral masses of C1 appear i ntact on the odontoid view. Degenerative disc disease is present at C3-4 C4-5 C5-6 and C6-7 with dis c space narrowing at C5-6 and C6-7. No suspicious bony lesions. No vertebral body height loss. Facet arthrosis is seen in the lower cervical spine bilaterally. Soft tissues: No prevertebral soft tissue swelling. IMPRESSION: 1. Multilevel degenerative changes of the cervical spine with facet arthrosis. 2. Multilevel degenerative disc disease most severe at C5-6 and C6-7. Reviewed by: Steven Quiroz on 01/27/2021 11:56 AM PDT Approved by: Steven Quiroz on 01/27/2021 11:56 AM PDT Station ID: [id number]
== END 2021-01-27 23:59 | disposition home or self-care (01) ==
LOC: DI.N 09:33
PROVIDERS: ATTEND Nurse Practitioner
DX: M50.31 Other cervical disc degeneration, high cervical region (principal); M48.02 Spinal stenosis, cervical region; M47.812 Spondylosis without myelopathy or radiculopathy, cervical region

== ENCOUNTER 2021-04-18 13:07 | Outpatient (CLI) | payer BC ==
--- NOTE | 2021-04-18 14:52 | XRAY Report ---
PROCEDURE: Knee 3 View RT INDICATIONS: RIGHT KNEE JOINT PAIN TECHNIQUE: 3 views of the right knee(s) were acquired. COMPARISON: None. FINDINGS: Bones: No fractures or dislocations. No suspicious bony lesions. Soft tissues: There is a suprapatellar joint effusion. No suspicious soft tissue calcifications. IMPRESSION: 1. Suprapatellar joint effusion suggests internal derangement. Consider MRI. 2. No fracture. Reviewed by: Steven Quiroz on 04/18/2021 2:50 PM PDT Approved by: Steven Quiroz on 04/18/2021 2:50 PM PDT Station ID: [id number]
== END 2021-04-18 23:59 | disposition home or self-care (01) ==
LOC: DI.N 13:07
PROVIDERS: ATTEND Family Medicine
DX: M25.561 Pain in right knee (principal); M25.461 Effusion, right knee

== ENCOUNTER 2021-05-05 15:13 | Emergency (ER) | payer BC ==
[2021-05-05 16:41] LABS: BASOPHILS # (AUTO) 0.1 10^3/uL (0.0-0.1); BASOPHILS % (AUTO) 0.9 %; EOSINOPHILS % (AUTO) 0.1 %; HGB - HEMOGLOBIN 14.5 g/dL (12.0-16.0); LYMPHOCYTES # (AUTO) 1.4 10^3/uL (1.5-3.5); LYMPHOCYTES % (AUTO) 14.6 %; MEAN CORPUSCULAR HEMOGLOBIN 35.6 pg (27.0-31.0); MEAN CORPUSCULAR HGB CONC 34.5 g/dL (32.0-36.0); MEAN CORPUSCULAR VOLUME 103.2 fL (81.0-99.0); MEAN PLATELET VOLUME 8.3 fL (7.9-10.8); MONOCYTES # (AUTO) 0.7 10^3/uL (0.0-1.0); MONOCYTES % (AUTO) 7.3 %; NEUTROPHILS # (AUTO) 7.4 10^3/uL (1.5-6.6); NEUTROPHILS % (AUTO) 76.8 %; PLT - PLATELET COUNT 303 10^3/uL (130-450); RED BLOOD COUNT 4.07 10^6/uL (4.20-5.40); RED CELL DISTRIBUTION WIDTH 11.5 % (12.0-15.0); WHITE BLOOD COUNT 9.7 x10^3/uL (4.8-10.8)
[2021-05-05 16:52] LABS: ALBUMIN 4.6 g/dL (3.2-5.5); ALBUMIN/GLOBULIN RATIO 1.2 (1.0-2.2); BILIRUBIN,TOTAL 0.9 mg/dL (0.2-1.0); CALCIUM 9.6 mg/dL (8.5-10.3); CREATININE 0.5 mg/dL (0.4-1.0); POTASSIUM 3.9 mmol/L (3.5-5.0); TOTAL PROTEIN 8.4 g/dL (6.7-8.2)
--- NOTE | 2021-05-05 17:16 | ED Physician Documentation ---
History of Present Illness - Stated complaint Stated Complaint: L ARM NUMBNESS/BACK PX - Chief complaint Chief Complaint: Neuro - History obtained from History obtained from: Patient - Additonal information Additional information: 4 days of left mid back pain, contant 11/02 achy. Today with numbness from left shoulder to left elbow. Trip and fall 3 weeks ago with knee frx. Taking motrin for same. Hx tobacco abuse. No weakness, saddle anesthesia or fevers. 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 : None HEENT: None Psych: None Musculoskeletal: None Derm: None - Past Surgical History Past Surgical History: Yes General: Appendectomy, Colonoscopy /FORESTRY FIRE AIDE: Hysterectomy HEENT: Tonsil/Adenoidectomy - Present Medications Home Medications: Ambulatory Orders Medication Instructions Recorded Confirmed No Known Home Medications 07/18/14 05/05/21 - Allergies Allergies/Adverse Reactions: Allergies Allergy/AdvReac Type Severity Reaction Status Date / Time Penicillins Allergy Mild Unknown Verified 08/17/19 06:49 morphine Allergy Hallucinati Verified 05/05/21 15:37 ons - Social History Does the pt smoke?: Yes Smoking Status: Current every day smoker Does the pt drink ETOH?: Yes Does the pt have substance abuse?: No - POLST Patient has POLST: No PD ED PE NORMAL - Vitals Vital signs reviewed: Yes - General General: Alert and oriented X 3, No acute distress - HEENT HEENT: PERRL, EOMI, Dentition benign - Neck Neck: Supple, no meningeal sign, No bony TTP - Cardiac Cardiac: RRR, No murmur - Respiratory Respiratory: No respiratory distress, Clear bilaterally - Abdomen Abdomen: Normal bowel sounds, Soft, Non tender - Back Back: No CVA TTP, No spinal TTP - Derm Derm: Normal color, Warm and dry - Extremities Extremities: No edema, No calf tenderness / cord - Neuro Neuro: Alert and oriented X 3, Normal speech, Other (NIHSS zero) Results - Vitals Vitals: Vital Signs - 24 hr 05/05/21 05/05/21 05/05/21 15:38 16:19 16:54 Temperature 36.8 C Heart Rate 80 76 Respiratory 18 16 Rate Blood Pressure 194/88 H 190/95 H 176/110 H O2 Saturation 99 100 Oxygen O2 Source Room air - EKG (time done) 1557 Rate: Rate (enter#) (76) Rhythm: NSR [place]: Normal Intervals: Normal [place] QRS: Normal Ischemia: Normal ST segments - Labs Labs: Laboratory Tests 05/05/21 05/05/21 05/05/21 16:21 16:21 16:21 WBC 9.7 RBC 4.07 L Hgb 14.5 Hct 42.0 MCV 103.2 H MCH 35.6 H MCHC 34.5 RDW 11.5 L Plt Count 303 MPV 8.3 Neut # (Auto) 7.4 H Lymph # (Auto) 1.4 L [place] # (Auto) 0.7 Eos # (Auto) 0.0 Baso # (Auto) 0.1 Absolute Nucleated RBC 0.00 Nucleated RBC % 0.0 Sodium 127 L Potassium 3.9 Chloride 89 L Carbon Dioxide 25 Anion Gap 13.0 BUN 7 Creatinine 0.5 Estimated GFR (MDRD) 126 Glucose 94 Calcium 9.6 Total Bilirubin 0.9 AST 22 ALT 18 Alkaline Phosphatase 117 Troponin I High Sens 3.9 Total Protein 8.4 H Albumin 4.6 Globulin 3.8 Albumin/Globulin Ratio 1.2 Lipase 28 PD MEDICAL DECISION MAKING - ED course ED course: 60-year-old woman presents with back pain, she does have some tender ribs on the left low side and had a recent fall. The neurologic exam is normal and there is no evidence of active coronary disease. Labs show modest hyponatremia and she is a daily drinker and she was advised to cut back. Other than that we offered rib x-rays and she declined noting that it would not gear changer per se, she was mostly worried about the results of her heart testing. Departure - Departure Disposition: 01 Home, Self Care Clinical Impression: Back pain Qualifiers: Back pain location: thoracic back pain Chronicity: acute Back pain laterality: left Qualified Code(s): M54.6 - Pain in thoracic spine Condition: Good Record reviewed to determine appropriate education?: Yes Instructions: ED Neck Back Pain General Comments: As discussed, it is definitely possible that you have a rib fracture, but you have declined further work-up. Return for new or worsening symptoms. Follow-up with your primary care physician regardless. Also as discussed, your sodium level is low today at 127. It may benefit you to decrease alcohol use.
[2021-05-05 17:33] VITALS: BP 168/97
== END 2021-05-05 17:33 | disposition home or self-care (01) ==
LOC: ED 15:13
DX: M54.6 Pain in thoracic spine (principal); E87.0 Hyperosmolality and hypernatremia; Z91.81 History of falling; Z72.89 Other problems related to lifestyle; F17.200 Nicotine dependence, unspecified, uncomplicated
CPT/HCPCS: 36415; 80053; 83690; 84484; 85025; 93005; 99282; 99284

== ENCOUNTER 2021-06-26 11:22 | Outpatient (CLI) | payer BC ==
--- NOTE | 2021-06-26 16:33 | XRAY Report ---
PROCEDURE: Wrist 4 View RT INDICATIONS: R WRIST PX TECHNIQUE: 4 views of the wrist were acquired. COMPARISON: None FINDINGS: Bones mildly displaced distal radial fracture with fracture lucency extending to the articular surfac e. Minimal appearance of impaction. Ulna styloid fracture is present. No suspicious bony lesions. Scaphoid view: No scaphoid fracture. Soft tissues: No suspicious soft tissue calcifications. IMPRESSION: 1. Comminuted distal radial fracture with intra-articular extension. 2. Ulna styloid fracture. Reviewed by: Anay Isabel MD on 06/26/2021 4:32 PM PST Approved by: Anay Isabel MD on 06/26/2021 4:32 PM PST Station ID: [id number]
== END 2021-06-26 23:59 | disposition home or self-care (01) ==
LOC: DI.N 11:22
PROVIDERS: ATTEND Family Medicine
DX: S52.571A Other intraarticular fracture of lower end of right radius, initial encounter for closed fracture (principal); S52.611A Displaced fracture of right ulna styloid process, initial encounter for closed fracture

== ENCOUNTER 2021-07-24 18:18 | Outpatient (CLI) | payer BC ==
--- NOTE | 2021-07-24 11:48 | XRAY Report ---
PROCEDURE: Wrist 3 View RT INDICATIONS: INTRAARTICULAR FX OF DISTAL R RADIUS TECHNIQUE: 3 views of the wrist were acquired. COMPARISON: 06/26/2021 FINDINGS: Bones: There has been further impaction of the transverse, intra-articular distal radius fracture wit h further angulation of the ventral fracture fragment. There is now slight ulnar positive variance. R adiocarpal alignment remains normal. Slight further displacement of minimally displaced ulnar styloid fracture. There is trace callus formation. No suspicious bony lesions. Soft tissues: No suspicious soft tissue calcifications. IMPRESSION: 1. Further impaction of intra-articular distal radius fracture. 2. Slight ulnar positive variance secondary to impaction deformity at the radius. 3. Slight further displacement of minimally displaced ulnar styloid fracture. Reviewed by: Diamante Arshad MD on 07/24/2021 11:46 AM PST Approved by: Diamante Arshad MD on 07/24/2021 11:46 AM PST Station ID: [id number]
== END 2021-07-24 23:59 | disposition home or self-care (01) ==
LOC: DI.N 18:18
PROVIDERS: ATTEND Physician Assistant
DX: S52.501G Unspecified fracture of the lower end of right radius, subsequent encounter for closed fracture with delayed healing (principal)

== ENCOUNTER 2021-08-25 07:44 | Outpatient (CLI) | payer BC ==
--- NOTE | 2021-08-25 13:30 | XRAY Report ---
PROCEDURE: Wrist 3 View RT INDICATIONS: F/U RIGHT WRIST FRACTURE TECHNIQUE: 3 views of the wrist were acquired. COMPARISON: 07/24/2021, 06/26/2021 FINDINGS: Bones: Impacted and displaced fracture involving distal radial shaft is again seen. Slightly displace d ulnar styloid fracture is also noted. Overall wrist alignment is unchanged from previous study. No new fracture or dislocation. No suspicious bony lesions. Scaphoid view: Scaphoid is grossly intact. Soft tissues: No suspicious soft tissue calcifications. IMPRESSION: Stable wrist alignment. Stable appearing impacted and displaced distal radial fracture and ulnar styl oid fracture. No new fracture or dislocation. Reviewed by: Reji Fontaine MD on 08/25/2021 1:29 PM PST Approved by: Reji Fontaine MD on 08/25/2021 1:29 PM [facility] Station ID: [id number]
== END 2021-08-25 07:45 | disposition home or self-care (01) ==
LOC: DI.WOS 07:44
PROVIDERS: ATTEND Physician Assistant
DX: S52.501D Unspecified fracture of the lower end of right radius, subsequent encounter for closed fracture with routine healing (principal); S52.611D Displaced fracture of right ulna styloid process, subsequent encounter for closed fracture with routine healing

== ENCOUNTER 2022-01-08 09:41 | Outpatient (CLI) | payer BC ==
--- NOTE | 2022-01-08 11:14 | Ultrasound Report ---
PROCEDURE: Duplex Ext Veins Left INDICATIONS: PAIN IN LEFT CALF AND FOOT TECHNIQUE: Real-time imaging, as well as color and pulse Doppler interrogation, were performed of the lower extr emity deep veins from the inguinal ligament to the popliteal fossa. COMPARISON: None. FINDINGS: The deep veins are normally compressible, and free of intraluminal thrombus. Color and pu lse Doppler demonstrate normal phasic intraluminal flow. There is normal augmentation response to di stal compression maneuver. IMPRESSION: No sonographic evidence of DVT. Reviewed by: Jono Alexander MD on 01/08/2022 11:12 AM PDT Approved by: Jono Alexander MD on 01/08/2022 11:12 AM PDT Station ID: [id number]
== END 2022-01-08 09:42 | disposition home or self-care (01) ==
LOC: DI 09:41
PROVIDERS: ATTEND Registered Nurse
DX: M79.672 Pain in left foot (principal); M79.662 Pain in left lower leg

== ENCOUNTER 2022-01-24 08:05 | Emergency (ER) | payer BC ==
[2022-01-24 08:17] VITALS: BP 203/105
--- NOTE | 2022-01-24 08:37 | ED Physician Documentation ---
History of Present Illness - Stated complaint Stated Complaint: LT LEG PX - Chief complaint Chief Complaint: Ext Problem - History obtained from History obtained from: Patient - History of Present Illness Timing: Other (1 month) Pain level max: 7 Pain level now: 4 - Additonal information Additional information: 61-year-old female presents to the emergency department with left leg pain and swelling x1 month. She does use tobacco and alcohol regularly. Does not recall any injury. Was seen in the walk-in clinic had a negative ultrasound of the left lower extremity and a negative x-ray of the foot. She has not had any fevers or chills. Worse with walking, better with rest. She states there was bruising to the ankle and dorsum of the foot, this is gradually improving, but still has swelling. Review of Systems Constitutional: denies: Fever, Chills GI: denies: Vomiting, Diarrhea Skin: denies: Rash Musculoskeletal: denies: Neck pain, Back pain Neurologic: denies: Headache PD PAST MEDICAL HISTORY - Past Medical History Cardiovascular: None Respiratory: None Neuro: None Endocrine/Autoimmune: None GI: Chronic diarrhea PROPERTY CLAIMS MANAGER: None : None HEENT: None Psych: None Musculoskeletal: None Derm: None - Past Surgical History Past Surgical History: Yes General: Appendectomy, Colonoscopy /PROPERTY CLAIMS MANAGER: Hysterectomy HEENT: Tonsil/Adenoidectomy - Present Medications Home Medications: Ambulatory Orders Medication Instructions Recorded Confirmed Meloxicam [Mobic] 7.5 mg PO BID PRN #20 tablet 01/24/22 - Allergies Allergies/Adverse Reactions: Allergies Allergy/AdvReac Type Severity Reaction Status Date / Time Penicillins Allergy Mild Unknown Verified 01/24/22 08:17 morphine Allergy Hallucinati Verified 01/24/22 08:17 ons - Social History Does the pt smoke?: Yes Smoking Status: Current every day smoker Does the pt drink ETOH?: Yes Does the pt have substance abuse?: No - POLST Patient has POLST: No PD ED PE NORMAL - Vitals Vital signs reviewed: Yes - General General: Alert and oriented X 3, No acute distress - Derm Derm: Warm and dry - Neuro Neuro: Alert and oriented X 3 - Psych Psych: Normal mood, Normal affect - Free text exam Free text exam: LLE - Bruising to the inferior aspect of the medial malleolus. There is also bruising over the dorsum of the foot and toes. Mild swelling to the mid calf. Mild erythema, blanches easily. No warmth, light pink in color. Results - Vitals Vitals: Vital Signs - 24 hr 01/24/22 08:14 Temperature 36.0 C L Heart Rate 91 Respiratory 16 Rate Blood Pressure 203/105 H O2 Saturation 100 Oxygen O2 Source Room air - Rads (name of study) Left ankle x-ray Radiology: Final report received, EMP read contemporaneously, See rad report Left foot x-ray Radiology: Final report received, EMP read contemporaneously, See rad report Procedures - Splint (location) L leg Splint applied by: Physician, Tech Type of splint: Fiberglass, Short leg, Posterior Other: Patient tolerated well, No complications, Neurovascular intact PD MEDICAL DECISION MAKING - ED course Complexity details: reviewed results, re-evaluated patient, considered differential, d/w patient, d/w family ED course: Unclear etiology of the patient's symptoms. Does not appear to be infectious. She does appear to be osteopenic on x-ray. Has significant arthritis in the foot as well. We will place her in a short leg posterior splint and have her stay off of the foot. Possible stress/microfractures? Possible arthritis flare? No evidence of septic joint. No evidence of cellulitis. Does have mild bruising near the toes and dorsum of the foot as well has the medial malleolus. We will have her follow-up with orthopedics for further care. Recommend that she have a DEXA scan as an outpatient for osteoporosis. She may benefit from an MRI if she does not improve with conservative treatment. Patient counseled regarding signs and symptoms for which I believe and urgent re-evaluation would be necessary. Patient with good understanding of and agreement to plan and is comfortable going home at this time This document was made in part using voice recognition software. While efforts are made to proofread this document, sound alike and grammatical errors may occur. Departure - Departure Disposition: 01 Home, Self Care Clinical Impression: Leg pain Qualifiers: Laterality: left Qualified Code(s): M79.605 - Pain in left leg Hypertension Qualifiers: Hypertension type: unspecified Qualified Code(s): I10 - Essential (primary) hypertension Condition: Good Instructions: Fx Stress, ED Degenerative Joint Disease Follow-Up: Scheidt,Judye A, DO [Primary Care Provider] - [facility] [Provider Group] - Within 1 week Prescriptions: Meloxicam [Mobic] 7.5 mg PO BID PRN #20 tablet PRN Reason: Pain Comments: Please stay off of the leg is much as possible. You are placed in a splint today. Your x-rays do not show any obvious fracture, but you do have very thin bones. You could have stress fractures in your foot/ankle. You could also be suffering an arthritic flare in the foot and ankle. We will trial you on rest first, you should follow-up with orthopedics for further care. I would recommend that you have a DEXA scan for bone density as you may have osteopenia/osteoporosis. Orthopedics may want to perform an MRI of the area. Please return if you worsen. Discharge Date/Time: 01/24/22 10:10
--- NOTE | 2022-01-24 09:03 | XRAY Report ---
PROCEDURE: Ankle 3 View LT INDICATIONS: foot/ankle pain/swelling x 1 month TECHNIQUE: 3 views of the left ankle were acquired. COMPARISON: None FINDINGS: Bones: No fractures or dislocations. Ankle mortise is normally aligned. No suspicious bony lesions . Soft tissues: No tibiotalar joint effusion. Achilles tendon appears normal. IMPRESSION: Normal left ankle Reviewed by: Steven Quiroz on 01/24/2022 8:01 AM BUTCH Approved by: Steven Quiroz on 01/24/2022 8:01 AM BUTCH Station ID: [id number]
--- NOTE | 2022-01-24 09:04 | XRAY Report ---
PROCEDURE: Foot 3 View LT INDICATIONS: foot/ankle pain/swelling x 1 month TECHNIQUE: 3 views of the foot were acquired. COMPARISON: None FINDINGS: Bones: No fractures or dislocations. The bones are demineralized. There are degenerative changes of the tarsometatarsal joints in the mid foot. No suspicious bony lesions. Soft tissues: No tibiotalar joint effusion. Achilles tendon appears normal. IMPRESSION: 1. No acute abnormality. 2. Degenerative changes of the tarsometatarsal joints in the mid foot. Reviewed by: Steven Quiroz on 01/24/2022 8:03 AM BUTCH Approved by: Steven Quiroz on 01/24/2022 8:03 AM BUTCH Station ID: [id number]
== END 2022-01-24 10:10 | disposition home or self-care (01) ==
LOC: ED 08:05
DX: M79.605 Pain in left leg (principal); I10 Essential (primary) hypertension; F17.200 Nicotine dependence, unspecified, uncomplicated
CPT/HCPCS: 29515

== ENCOUNTER 2022-02-03 08:00 | Outpatient (CLI) | payer BC ==
--- NOTE | 2022-02-03 15:20 | XRAY Report ---
PROCEDURE: Foot 3 View LT INDICATIONS: FOOT PAIN TECHNIQUE: 3 views of the foot were acquired. COMPARISON: Left foot radiographs 01/24/2022, 12/28/2021. FINDINGS: Bones: The bones appear demineralized. There is cortical irregularity at the medial base of the secon d metatarsal. Equivocal minimal offset of the second TMT joint. Midfoot degenerative changes redemons trated. Soft tissues: No tibiotalar joint effusion. IMPRESSION: Cortical irregularity at the base of the second metatarsal raises the possibility of recent fracture. Correlation with point tenderness may be helpful. Fracture in this area raises the possibility of Li sfranc ligament injury. Orthopedic consultation may be helpful to direct further management, follow-u p radiographs or MRI or CT could be obtained as indicated. Reviewed by: Filiberto Lyons MD on 02/03/2022 3:18 PM PDT Approved by: Filiberto Lyons MD on 02/03/2022 3:18 PM PDT Station ID: [id number]
--- NOTE | 2022-02-03 15:23 | XRAY Report ---
PROCEDURE: Ankle 3 View LT INDICATIONS: ANKLE PAIN TECHNIQUE: 3 views of the ankle were acquired. COMPARISON: Left ankle radiographs 01/24/2022. FINDINGS: Bones: The bones appear demineralized. No fractures or dislocations. Ankle mortise is normally alig harrison. No suspicious bony lesions. Soft tissues: No tibiotalar joint effusion. Achilles tendon appears normal. IMPRESSION: No acute osseous abnormality. If symptoms persist, follow-up radiographs and/or CT may be helpful for further evaluation. Reviewed by: Filiberto Lyons MD on 02/03/2022 3:22 PM PDT Approved by: Filiberto Lyons MD on 02/03/2022 3:22 PM PDT Station ID: [id number]
== END 2022-02-03 23:59 | disposition home or self-care (01) ==
LOC: DI.WOS 08:00
PROVIDERS: ATTEND Physician Assistant
DX: M25.572 Pain in left ankle and joints of left foot (principal); M79.672 Pain in left foot

== ENCOUNTER 2022-04-02 08:00 | Outpatient (CLI) | payer BC ==
--- NOTE | 2022-04-03 08:09 | XRAY Report ---
PROCEDURE: Foot 3 View LT INDICATIONS: LEFT FOOT FX TECHNIQUE: 3 views of the foot were acquired. COMPARISON: Left foot radiographs 02/03/2022. FINDINGS: Bones: The bones appear demineralized. Cortical irregularity at the medial base of the second metatar bert persists. Alignment is not significantly changed with equivocal minimal offset of the second TMT joint. No definite or substantial bony callus visualized. Soft tissues: No tibiotalar joint effusion. Achilles tendon appears normal. IMPRESSION: No significant interval change. Similar appearance of cortical irregularity at the base of the second metatarsal raises the possibility of prior fracture in this area. Alignment is similar to before. No definite bony callus visualized. Reviewed by: Filiberto Lyons MD on 04/03/2022 8:08 AM PDT Approved by: Filiberto Lyons MD on 04/03/2022 8:08 AM PDT Station ID: [id number]
== END 2022-04-02 23:59 | disposition home or self-care (01) ==
LOC: DI.WOS 08:00
PROVIDERS: ATTEND Orthopaedic Surgery
DX: S93.325D Dislocation of tarsometatarsal joint of left foot, subsequent encounter (principal)

== ENCOUNTER 2022-04-27 08:00 | Outpatient (CLI) | payer BC ==
--- NOTE | 2022-04-27 18:45 | XRAY Report ---
PROCEDURE: Lumbar Spine 2 View INDICATIONS: LOW BACK PX TECHNIQUE: 3 views of the lumbar spine were acquired. COMPARISON: None. FINDINGS: Bones: 5 [id number] vertebrae are present. There is normal straightening of normal lumbar lord osis. Age-indeterminate and superior endplate compression deformity at L5 level with 20-25% loss of L 5 vertebral body height anteriorly. No other compression fracture is seen. Degenerative endplate tobar ges, loss of disc height and bilateral facet arthrosis throughout lumbar spine is seen. No suspicious bony lesions. Soft tissues: Overlying bowel gas pattern is normal. No suspicious soft tissue calcifications. IMPRESSION: Age-indeterminate anterior wedge compression deformity at L5 level with 20-25% loss of L 5 vertebral body height anteriorly. Degenerative disc disease throughout lumbar spine. No significant spondylolisthesis. Reviewed by: Reji Burkett MD on 04/27/2022 6:44 PM PDT Approved by: Reji Burkett MD on 04/27/2022 6:44 PM PDT Station ID: [id number]
== END 2022-04-27 23:59 | disposition home or self-care (01) ==
LOC: DI.N 08:00
PROVIDERS: ATTEND Physician Assistant
DX: M48.56XA Collapsed vertebra, not elsewhere classified, lumbar region, initial encounter for fracture (principal); M51.36 Other intervertebral disc degeneration, lumbar region; M47.816 Spondylosis without myelopathy or radiculopathy, lumbar region

== ENCOUNTER 2022-04-29 22:55 | Outpatient (CLI) | payer BC | END 2022-04-29 22:56 | disposition short-term general hospital (02) | LOC: EMS 22:55 | DX: M25.552 Pain in left hip (principal); M79.652 Pain in left thigh; W18.30XA Fall on same level, unspecified, initial encounter; Y93.01 Activity, walking, marching and hiking; Y92.008 Other place in unspecified non-institutional (private) residence as the place of occurrence of the external cause | CPT/HCPCS: A0425; A0427 ==

== ENCOUNTER 2022-05-04 08:18 | Outpatient (CLI) | payer BC | END 2022-05-04 08:19 | disposition EMS.NT | LOC: EMS 08:18 | DX: R58 Hemorrhage, not elsewhere classified (principal) ==

== ENCOUNTER 2022-05-04 14:58 | Outpatient (CLI) | payer BC | END 2022-05-04 14:59 | disposition short-term general hospital (02) | LOC: EMS 14:58 | DX: R58 Hemorrhage, not elsewhere classified (principal); M25.552 Pain in left hip; R63.8 Other symptoms and signs concerning food and fluid intake; Z72.89 Other problems related to lifestyle; Z74.1 Need for assistance with personal care | CPT/HCPCS: A0425; A0429 ==

== ENCOUNTER 2022-07-19 18:19 | Outpatient (CLI) | payer BC | END 2022-07-19 18:20 | disposition EMS.NT | LOC: EMS 18:19 | DX: Z03.89 Encounter for observation for other suspected diseases and conditions ruled out (principal) ==

== ENCOUNTER 2022-07-20 11:11 | Emergency (ER) | payer BC ==
[2022-07-20 11:49] VITALS: BP 182/83
--- OUTSIDE RECORDS SUMMARY | 2022-07-20 11:54 | EXTERNAL MEDICAL SUMMARY RPT | Continuity of Care Document ---
:1960 Author Organization [facility] Address [address] [place] [address] Phone Allergies and Intolerances date description facility type (no date) Penicillins [facility] (unknown) (no date) morphine [facility] (unknown) Encounters No information. Functional Status No information. Immunizations No information. Medications No information. Problems date description facility 2022-04-30 14:30 Fracture of unspecified part of neck of [facility] femur, initial 2022-04-30 17:22 Fracture of unspecified part of neck of [facility] femur, initial 2022-05-01 08:03 Fracture of unspecified part of neck of [facility] femur, initial 2022-05-01 09:43 Fracture of unspecified part of neck of [facility] femur, initial 2022-05-01 11:22 Fracture of unspecified part of neck of [facility] femur, initial 2022-05-01 14:59 Fracture of unspecified part of neck of [facility] femur, initial 2022-05-02 10:16 Fracture of unspecified part of neck of [facility] femur, initial 2022-05-02 10:48 Fracture of unspecified part of neck of [facility] femur, initial 2022-05-02 14:46 Fracture of unspecified part of neck of [facility] femur, initial 2022-05-02 15:59 Fracture of unspecified part of neck of [facility] femur, initial 2022-05-02 21:36 Fracture of unspecified part of neck of [facility] femur, initial 2022-05-04 08:54 Fracture of unspecified part of neck of [facility] femur, initial 2022-05-04 15:25 Fracture of unspecified part of neck of [facility] femur, initial 2022-05-05 09:26 Fracture of unspecified part of neck of [facility] femur, initial 2022-05-26 16:04 Effusion, [facility] 2022-05-26 17:14 Effusion, [facility] Procedures No information. Results/Labs test date author facility value unit interpret ation Result panel 1 (unknown) (no (unknown) (unknown) (no value) (units (unk nown) date) unknown) (unknown) (no (unknown) (unknown) [id number] (units (unkn own) date) unknown) (unknown) (no (unknown) (unknown) 04/29/22 (units (unkno wn) date) unknown) (unknown) (no (unknown) (unknown) [id number] (units (unkn own) date) Street unknown) (unknown) (no (unknown) (unknown) Accession (units (unkn own) date) Number: unknown) [id number] (unknown) (no (unknown) (unknown) Accession (units (unkn own) date) Number: unknown) [id number] (unknown) (no (unknown) (unknown) Age/Sex: 61 / F (units (unknown) date) Date of Service: unknown) (unknown) (no (unknown) (unknown) [place], [place] (units ( unknown) date) [id number] unknown) (unknown) (no (unknown) (unknown) Approved by: (units (u nknown) date) Adriano Varela, beryl) M.DJames on 04/30/2022 at 0:17 (unknown) (no (unknown) (unknown) Approved by: (units (u nknown) date) beryl Peterson) MJamesDJames on 04/30/2022 at 0:19 (unknown) (no (unknown) (unknown) Bones and chest (units (unknown) date) wall: No unknown) suspicious bony lesions. Overlying soft tissues (unknown) (no (unknown) (unknown) Bones: No (units (unkn own) date) dislocations. unknown) Pelvic ring appears intact. No suspicious bony (unknown) (no (unknown) (unknown) COMPARISON: (units (un known) date) None. unknown) (unknown) (no (unknown) (unknown) : 1960 (units (unknown) date) Acct:[id number] unknown) (unknown) (no (unknown) (unknown) Dictated by: (units (u nknown) date) beryl Peterson) M.D. on 04/30/2022 at 0:17 (unknown) (no (unknown) (unknown) FINDINGS: (units (unkn own) date) unknown) (unknown) (no (unknown) (unknown) IMPRESSION: (units (un known) date) Inter unknown) trochanteric left hip fracture, associated with a lateral (unknown) (no (unknown) (unknown) IMPRESSION: (units (un known) date) Relatively large unknown) lung volumes, COPD may be present. No trauma (unknown) (no (unknown) (unknown) INDICATIONS: (units (u nknown) date) fall unknown) (unknown) (no (unknown) (unknown) [facility] (units (unknown) date) unknown) (unknown) (no (unknown) (unknown) Loc: ED (units (unkno wn) date) unknown) (unknown) (no (unknown) (unknown) Lungs and (units (unkn own) date) pleura: Lungs unknown) are clear. No pleural effusions or pneumothorax. (unknown) (no (unknown) (unknown) Mediastinum: (units (u nknown) date) Mediastinal unknown) contours appear normal. Heart size is normal. (unknown) (no (unknown) (unknown) Ordering (units (unkno wn) date) Provider: unknown) Leila Souza D.O. (unknown) (no (unknown) (unknown) PROCEDURE: XR (units ( unknown) date) CHEST 1V unknown) (unknown) (no (unknown) (unknown) PROCEDURE: XR (units ( unknown) date) HIP W PEL IF unknown) DONE LT 2V (unknown) (no (unknown) (unknown) Patient: (units (unkno wn) date) Nichol Meng R unknown) MR#: [id number] (unknown) (no (unknown) (unknown) Procedure: XR (units ( unknown) date) chest 1V unknown) (unknown) (no (unknown) (unknown) Procedure: XR (units ( unknown) date) hip w pel if unknown) done LT 2V (unknown) (no (unknown) (unknown) Signed (units (unkno wn) date) unknown) (unknown) (no (unknown) (unknown) Soft tissues: (units ( unknown) date) The visualized unknown) bowel gas pattern is normal. No suspicious soft (unknown) (no (unknown) (unknown) Surgical (units (unkno wn) date) changes and unknown) devices: None. (unknown) (no (unknown) (unknown) TECHNIQUE: AP (units ( unknown) date) pelvis with unknown) lateral view(s) of the left hip(s). (unknown) (no (unknown) (unknown) TECHNIQUE: One (units (unknown) date) view of the unknown) chest was acquired. (unknown) (no (unknown) (unknown) XRay Report (units (un known) date) unknown) (unknown) (no (unknown) (unknown) appear (units (unkno wn) date) unknown) (unknown) (no (unknown) (unknown) calcifications. (units (unknown) date) unknown) (unknown) (no (unknown) (unknown) comminution. (units (u nknown) date) unknown) (unknown) (no (unknown) (unknown) found. (units (unkno wn) date) unknown) (unknown) (no (unknown) (unknown) fracture at (units (un known) date) unknown) (unknown) (no (unknown) (unknown) inferior (units (unkno wn) date) unknown) (unknown) (no (unknown) (unknown) is a inter (units (unk nown) date) trochanteric unknown) mildly comminuted left hip fracture, and beneath this (unknown) (no (unknown) (unknown) lesions. There (units (unknown) date) unknown) (unknown) (no (unknown) (unknown) mild (units (unkno wn) date) unknown) (unknown) (no (unknown) (unknown) obturator ring (units (unknown) date) fracture on the unknown) left. (unknown) (no (unknown) (unknown) the inferior (units (u nknown) date) obturator ring unknown) on the left there is a 2nd area of fracture with (unknown) (no (unknown) (unknown) tissue (units (unkno wn) date) unknown) (unknown) (no (unknown) (unknown) unremarkable. (units ( unknown) date) unknown) Result panel 2 (unknown) (no date) (unknown) (unknown) 102.6 fl (unkn own) (unknown) (no date) (unknown) (unknown) 11.8 x10 3/ul (unkn own) (unknown) (no date) (unknown) (unknown) 11.9 g/dl (unkn own) (unknown) (no date) (unknown) (unknown) 13.1 % (unkn own) (unknown) (no date) (unknown) (unknown) 3.40 x10 6/ul (unkn own) (unknown) (no date) (unknown) (unknown) 306 x10 3/ul (unkn own) (unknown) (no date) (unknown) (unknown) 34.2 % (unkn own) (unknown) (no date) (unknown) (unknown) 34.9 % (unkn own) (unknown) (no date) (unknown) (unknown) 35.1 pg (unkn own) Result panel 3 (unknown) (no date) (unknown) (unknown) > 60 ml/min (unkn own) (unknown) (no date) (unknown) (unknown) > 60 ml/min (unkn own) (unknown) (no date) (unknown) (unknown) < 2 mg/dl (unkn own) (unknown) (no date) (unknown) (unknown) 0.32 mg/dl (unkn own) (unknown) (no date) (unknown) (unknown) 0.4 mg/dl (unkn own) (unknown) (no date) (unknown) (unknown) 0.9 (units unknown) (unknown) (unknown) (no date) (unknown) (unknown) 122 mmol/l (unkn own) (unknown) (no date) (unknown) (unknown) 15 iu/l (unkn own) (unknown) (no date) (unknown) (unknown) 2.9 g/dl (unkn own) (unknown) (no date) (unknown) (unknown) 22 mmol/l (unkn own) (unknown) (no date) (unknown) (unknown) 29 iu/l (unkn own) (unknown) (no date) (unknown) (unknown) 3.1 g/dl (unkn own) (unknown) (no date) (unknown) (unknown) 4.1 mmol/l (unkn own) (unknown) (no date) (unknown) (unknown) 4.1 mmol/l (unkn own) (unknown) (no date) (unknown) (unknown) 6.0 g/dl (unkn own) (unknown) (no date) (unknown) (unknown) 6.3 (units unknown) (unknown) (unknown) (no date) (unknown) (unknown) 7.4 mg/dl (unkn own) (unknown) (no date) (unknown) (unknown) 92 mmol/l (unkn own) (unknown) (no date) (unknown) (unknown) 96 mg/dl (unkn own) (unknown) (no date) (unknown) (unknown) 96 mg/dl (unkn own) (unknown) (no date) (unknown) (unknown) 96 u/l (unkn own) Result panel 4 (unknown) (no (unknown) (unknown) (no value) (units (unk nown) date) unknown) (unknown) (no (unknown) (unknown) [id number] (units (unkno wn) date) unknown) (unknown) (no (unknown) (unknown) 00:00 (units (unkno wn) date) unknown) (unknown) (no (unknown) (unknown) 00:03 04/29/22 (units (unknown) date) unknown) (unknown) (no (unknown) (unknown) 04/29/22 04/29/22 (units (unknown) date) Range/Units unknown) (unknown) (no (unknown) (unknown) 04/29/22 23:43 (units (unknown) date) unknown) (unknown) (no (unknown) (unknown) 04/29/22 23:50 (units (unknown) date) unknown) (unknown) (no (unknown) (unknown) 04/30/22 00:15 (units (unknown) date) unknown) (unknown) (no (unknown) (unknown) 04/30/22 (units (unkno wn) date) unknown) (unknown) (no (unknown) (unknown) 12 point review (units (unknown) date) of systems is unknown) negative except for those stated above and HPI (unknown) (no (unknown) (unknown) 23:50 23:50 (units (un known) date) unknown) (unknown) (no (unknown) (unknown) 23:56 04/30/22 (units (unknown) date) unknown) (unknown) (no (unknown) (unknown) ABDOMEN: Soft, (units (unknown) date) nontender. unknown) Normoactive bowel sounds all 4 quadrants. No (unknown) (no (unknown) (unknown) ALT 15 (<35) IU/L (units (unknown) date) unknown) (unknown) (no (unknown) (unknown) AST 29 (14-36) (units (unknown) date) IU/L unknown) (unknown) (no (unknown) (unknown) Age/Sex: 61 / F (units (unknown) date) unknown) (unknown) (no (unknown) (unknown) Albumin 2.9 L (units ( unknown) date) (3.5-5.0) g/dL unknown) (unknown) (no (unknown) (unknown) Albumin/Globulin (units (unknown) date) Ratio 0.9 L unknown) (1.0-2.8) (unknown) (no (unknown) (unknown) Alcohol type: (units ( unknown) date) wine unknown) (unknown) (no (unknown) (unknown) Alkaline (units (unkno wn) date) Phosphatase 96 unknown) (38-126) U/L (unknown) (no (unknown) (unknown) Allergies (units (unkn own) date) unknown) (unknown) (no (unknown) (unknown) Allergy/AdvReac (units (unknown) date) Type Severity unknown) Reaction Status Date / Time (unknown) (no (unknown) (unknown) BUN < 2 L (7-17) (units (unknown) date) mg/dL unknown) (unknown) (no (unknown) (unknown) BUN/Creatinine (units (unknown) date) Ratio 6.3 (6-22) unknown) (unknown) (no (unknown) (unknown) Baso # (Auto) Not (units (unknown) date) Reportable unknown) (unknown) (no (unknown) (unknown) Baso % (Auto) Not (units (unknown) date) Reportable unknown) (unknown) (no (unknown) (unknown) Bedside Urine (units ( unknown) date) Bilirubin - unknown) Negative (unknown) (no (unknown) (unknown) Bedside Urine (units ( unknown) date) Glucose Negative unknown) (unknown) (no (unknown) (unknown) Bedside Urine (units ( unknown) date) Ketone - Negative unknown) (unknown) (no (unknown) (unknown) Bedside Urine (units ( unknown) date) Leukocytes - unknown) Negative (unknown) (no (unknown) (unknown) Bedside Urine (units ( unknown) date) Nitrite - Negative unknown) (unknown) (no (unknown) (unknown) Bedside Urine (units ( unknown) date) Occult Blood - unknown) Negative (unknown) (no (unknown) (unknown) Bedside Urine (units ( unknown) date) Protein - Negative unknown) (unknown) (no (unknown) (unknown) Bedside Urine (units ( unknown) date) Urobilinogen - unknown) Negative (unknown) (no (unknown) (unknown) Bedside Urine pH (units (unknown) date) 6 unknown) (unknown) (no (unknown) (unknown) Blood Pressure (units (unknown) date) 115/74 112/68 unknown) (unknown) (no (unknown) (unknown) Blood Pressure (units (unknown) date) unknown) (unknown) (no (unknown) (unknown) CARDIOVASCULAR: (units (unknown) date) Denies chest pain, unknown) palpitations, orthopnea, edema (unknown) (no (unknown) (unknown) CARDIOVASCULAR: (units (unknown) date) Regular rate and unknown) rhythm without murmurs, rubs or gallops. (unknown) (no (unknown) (unknown) CBC Auto Diff (units ( unknown) date) [Complete Blood unknown) Count AUTO DIFF] Stat (unknown) (no (unknown) (unknown) CMP (units (unkno wn) date) [Comprehensive unknown) Metabolic Panel] Stat (unknown) (no (unknown) (unknown) COVID19 -Nasal (units (unknown) date) RAPID/Pre-Proc unknown) Stat (unknown) (no (unknown) (unknown) Calcium 7.4 L (units ( unknown) date) (8.4-10.2) mg/dL unknown) (unknown) (no (unknown) (unknown) Carbon Dioxide 22 (units (unknown) date) (22-32) mmol/L unknown) (unknown) (no (unknown) (unknown) Chief Complaint: (units (unknown) date) Fall unknown) (unknown) (no (unknown) (unknown) Chloride 92 L (units ( unknown) date) (98-107) mmol/L unknown) (unknown) (no (unknown) (unknown) Course (units (unkno wn) date) unknown) (unknown) (no (unknown) (unknown) Creatinine 0.32 L (units (unknown) date) (0.52-1.04) mg/dL unknown) (unknown) (no (unknown) (unknown) : 1960 (units (unknown) date) Acct:[id number] unknown) (unknown) (no (unknown) (unknown) Date of Service: (units (unknown) date) 04/29/22 unknown) (unknown) (no (unknown) (unknown) Departure (units (unkn own) date) unknown) (unknown) (no (unknown) (unknown) Discharge Plan (units (unknown) date) unknown) (unknown) (no (unknown) (unknown) Discontinued (units (u nknown) date) Medications unknown) (unknown) (no (unknown) (unknown) Documented By: (units (unknown) date) [facility] unknown) (unknown) (no (unknown) (unknown) ED Orders (units (unkn own) date) unknown) (unknown) (no (unknown) (unknown) ER Physician: (units ( unknown) date) Leila Souza unknown) D.O. (unknown) (no (unknown) (unknown) EXTREMITIES: (units (u nknown) date) Normal range of unknown) motion, no clubbing or edema. Neurovascularly (unknown) (no (unknown) (unknown) Emergency Report (units (unknown) date) unknown) (unknown) (no (unknown) (unknown) Eos % (Auto) Not (units (unknown) date) Reportable unknown) (unknown) (no (unknown) (unknown) Esterase (units (unkno wn) date) unknown) (unknown) (no (unknown) (unknown) Estimated GFR > (units (unknown) date) 60 (>60) mL/min unknown) (unknown) (no (unknown) (unknown) Exam (units (unkno wn) date) unknown) (unknown) (no (unknown) (unknown) GASTROINTESTINAL: (units (unknown) date) Denies nausea, unknown) vomiting, abdominal pain, diarrhea, (unknown) (no (unknown) (unknown) GENERAL: Denies (units (unknown) date) chills, fatigue, unknown) malaise, fever, sweats, travel (unknown) (no (unknown) (unknown) GENERAL: (units (unkno wn) date) unknown) (unknown) (no (unknown) (unknown) : Denies (units (unkn own) date) dysuria, unknown) frequency, incontinence, hematuria, urinary retention, flank (unknown) (no (unknown) (unknown) General (units (unkno wn) date) unknown) (unknown) (no (unknown) (unknown) Globulin 3.1 (units (u nknown) date) (1.7-4.1) g/dL unknown) (unknown) (no (unknown) (unknown) Glucose 96 (units (unk nown) date) (80-110) mg/dL unknown) (unknown) (no (unknown) (unknown) HEENT: Denies (units ( unknown) date) sinus pain, ear unknown) pain, sore throat, difficulty swallowing, neck (unknown) (no (unknown) (unknown) HEENT: Head (units (un known) date) atraumatic,EOMI, unknown) pupils reactive, face symmetric, [moist] mucous (unknown) (no (unknown) (unknown) HPI - Fall (units (unk nown) date) unknown) (unknown) (no (unknown) (unknown) HPI Narrative: (units (unknown) date) unknown) (unknown) (no (unknown) (unknown) Hct 34.9 L (units (unk nown) date) (36-46) % unknown) (unknown) (no (unknown) (unknown) Hgb 11.9 L (units (unk nown) date) (12.0-16.0) g/dL unknown) (unknown) (no (unknown) (unknown) History of (units (unk nown) date) Present Illness unknown) (unknown) (no (unknown) (unknown) Home Medications (units (unknown) date) unknown) (unknown) (no (unknown) (unknown) Hydromorphone HCl (units (unknown) date) (Hydromorphone 0.5 unknown) Mg Inj) 0.5 mg IV NOW ONE (unknown) (no (unknown) (unknown) Initial Vital (units ( unknown) date) Signs unknown) (unknown) (no (unknown) (unknown) Initial Vital (units ( unknown) date) Signs: unknown) (unknown) (no (unknown) (unknown) [facility] (units (unknown) date) [address] unknown) [place] [address] (unknown) (no (unknown) (unknown) Lab Data (units (unkno wn) date) unknown) (unknown) (no (unknown) (unknown) Lab Results (units (un known) date) unknown) (unknown) (no (unknown) (unknown) Labs: (units (unkno wn) date) unknown) (unknown) (no (unknown) (unknown) Last Admin: (units (un known) date) 04/30/22 00:05 unknown) Dose: Not Given (unknown) (no (unknown) (unknown) Left hip is (units (un known) date) tender left leg is unknown) shortened (unknown) (no (unknown) (unknown) Lymph # (Auto) (units (unknown) date) Not Reportable unknown) (unknown) (no (unknown) (unknown) Lymph % (Auto) (units (unknown) date) Not Reportable unknown) (unknown) (no (unknown) (unknown) MCH 35.1 H (units (unk nown) date) (26-34) PG unknown) (unknown) (no (unknown) (unknown) MCHC 34.2 (30-36) (units (unknown) date) % unknown) (unknown) (no (unknown) (unknown) MCV 102.6 H (units (un known) date) (80-100) fL unknown) (unknown) (no (unknown) (unknown) MDM - Fall (units (unk nown) date) unknown) (unknown) (no (unknown) (unknown) MUSCULOSKELETAL: (units (unknown) date) See HPI unknown) (unknown) (no (unknown) (unknown) Medication (units (unk nown) date) Instructions unknown) Recorded Confirmed (unknown) (no (unknown) (unknown) Mode of arrival: (units (unknown) date) EMS unknown) (unknown) (no (unknown) (unknown) [place] # (Auto) Not (units (unknown) date) Reportable unknown) (unknown) (no (unknown) (unknown) [place] % (Auto) Not (units (unknown) date) Reportable unknown) (unknown) (no (unknown) (unknown) Morphine Sulfate (units (unknown) date) (Morphine 2 Mg/Ml unknown) Inj) 2 mg IV NOW ONE (unknown) (no (unknown) (unknown) NEUROLOGIC: (units (un known) date) Denies weakness, unknown) dizziness, headache, numbness, change in speech, (unknown) (no (unknown) (unknown) NEUROLOGICAL: (units ( unknown) date) Alert and oriented unknown) x4 (unknown) (no (unknown) (unknown) Narrative: (units (unk nown) date) unknown) (unknown) (no (unknown) (unknown) Neut % (Auto) Not (units (unknown) date) Reportable unknown) (unknown) (no (unknown) (unknown) No Action (units (unkn own) date) unknown) (unknown) (no (unknown) (unknown) No Known Home (units ( unknown) date) Medications unknown) 08/10/19 08/10/19 (unknown) (no (unknown) (unknown) No Known Home (units ( unknown) date) Medications unknown) (unknown) (no (unknown) (unknown) Ordered: (units (unkno wn) date) unknown) (unknown) (no (unknown) (unknown) Orders (units (unkno wn) date) unknown) (unknown) (no (unknown) (unknown) Oxygen Delivery (units (unknown) date) Method Room Air unknown) (unknown) (no (unknown) (unknown) Oxygen Delivery (units (unknown) date) Method unknown) (unknown) (no (unknown) (unknown) PSYCHIATRIC: No (units (unknown) date) concerning unknown) psychosocial issues. (unknown) (no (unknown) (unknown) Patient History (units (unknown) date) unknown) (unknown) (no (unknown) (unknown) Patient is a (units (u nknown) date) 61-year-old female unknown) history of smoking, presents today after fall. (unknown) (no (unknown) (unknown) Patient: (units (unkno wn) date) Nichol Meng Fausto unknown) MR#: [id number] (unknown) (no (unknown) (unknown) Penicillins (units (un known) date) [PENICILLINS] unknown) AdvReac Intermediate rash Verified 08/10/19 13:46 (unknown) (no (unknown) (unknown) Plt Count 306 (units ( unknown) date) (150-400) X103/uL unknown) (unknown) (no (unknown) (unknown) Potassium 4.1 (units ( unknown) date) (3.4-5.1) mmol/L unknown) (unknown) (no (unknown) (unknown) Prescriptions: (units (unknown) date) unknown) (unknown) (no (unknown) (unknown) Pulse Oximetry 96 (units (unknown) date) 04/29/22 23:56 unknown) (unknown) (no (unknown) (unknown) Pulse Oximetry 97 (units (unknown) date) 96 unknown) (unknown) (no (unknown) (unknown) Pulse Oximetry (units (unknown) date) unknown) (unknown) (no (unknown) (unknown) Pulse Rate 67 (units ( unknown) date) 04/29/22 23:56 unknown) (unknown) (no (unknown) (unknown) Pulse Rate 67 67 (units (unknown) date) unknown) (unknown) (no (unknown) (unknown) Pulse Rate 68 (units ( unknown) date) unknown) (unknown) (no (unknown) (unknown) RBC 3.40 L (units (unk nown) date) (4.0-5.2) X106/uL unknown) (unknown) (no (unknown) (unknown) RDW 13.1 (units (unkno wn) date) (11.6-14.8) % unknown) (unknown) (no (unknown) (unknown) RESPIRATORY: (units (u nknown) date) Breath sounds unknown) equal bilaterally, no wheezes rales or rhonchi. (unknown) (no (unknown) (unknown) RESPIRATORY: (units (u nknown) date) Denies dyspnea, unknown) cough, wheezing, hemoptysis, sputum. (unknown) (no (unknown) (unknown) Related Data (units (u nknown) date) unknown) (unknown) (no (unknown) (unknown) Respiratory Rate (units (unknown) date) 16 19 unknown) (unknown) (no (unknown) (unknown) Respiratory Rate (units (unknown) date) 18 unknown) (unknown) (no (unknown) (unknown) Respiratory Rate (units (unknown) date) 19 04/29/22 23:56 unknown) (unknown) (no (unknown) (unknown) Result diagrams: (units (unknown) date) unknown) (unknown) (no (unknown) (unknown) Review of Systems (units (unknown) date) unknown) (unknown) (no (unknown) (unknown) SKIN: No rash, no (units (unknown) date) erythema, no unknown) pruritus (unknown) (no (unknown) (unknown) SKIN: Warm, dry, (units (unknown) date) no laceration, no unknown) petechiae, no rashes or lesions. (unknown) (no (unknown) (unknown) She states that (units (unknown) date) she has been using unknown) a walker for the past few weeks he she does (unknown) (no (unknown) (unknown) She was unable to (units (unknown) date) get up and unknown) required EMS assistance. (unknown) (no (unknown) (unknown) Signed By: (units (unk nown) date) unknown) (unknown) (no (unknown) (unknown) Smoking Status: (units (unknown) date) Current every day unknown) smoker (unknown) (no (unknown) (unknown) Social History (units (unknown) date) (Reviewed 04/30/22 unknown) @ 00:37 by Leila Souza DO) (unknown) (no (unknown) (unknown) Sodium 122 L (units (u nknown) date) (137-145) mmol/L unknown) (unknown) (no (unknown) (unknown) Source: patient (units (unknown) date) and EMS unknown) (unknown) (no (unknown) (unknown) Stated Complaint: (units (unknown) date) GLF, left hip pain unknown) (unknown) (no (unknown) (unknown) Status post (units (un known) date) appendectomy unknown) (unknown) (no (unknown) (unknown) Status post (units (un known) date) breast lumpectomy unknown) (unknown) (no (unknown) (unknown) Status post (units (un known) date) hysterectomy unknown) (unknown) (no (unknown) (unknown) Stop: 04/29/22 (units (unknown) date) 23:46 unknown) (unknown) (no (unknown) (unknown) Stop: 04/30/22 (units (unknown) date) 00:31 unknown) (unknown) (no (unknown) (unknown) Substance Use (units ( unknown) date) Type: does not use unknown) (unknown) (no (unknown) (unknown) Surgical History (units (unknown) date) (Reviewed 04/30/22 unknown) @ 00:37 by Leila Souza DO) (unknown) (no (unknown) (unknown) Temperature 97.7 (units (unknown) date) F unknown) (unknown) (no (unknown) (unknown) Temperature (units (un known) date) unknown) (unknown) (no (unknown) (unknown) Time Seen by (units (u nknown) date) Provider: 04/29/22 unknown) 23:36 (unknown) (no (unknown) (unknown) Total Bilirubin (units (unknown) date) 0.4 (0.2-1.3) unknown) mg/dL (unknown) (no (unknown) (unknown) Total Protein 6.0 (units (unknown) date) L (6.3-8.2) g/dL unknown) (unknown) (no (unknown) (unknown) Urine Dip (units (unkn own) date) unknown) (unknown) (no (unknown) (unknown) Urine Specific (units (unknown) date) [place] 1.010 unknown) (unknown) (no (unknown) (unknown) Vital Signs - 8 (units (unknown) date) hr unknown) (unknown) (no (unknown) (unknown) Vital Signs (units (un known) date) unknown) (unknown) (no (unknown) (unknown) Vital signs: (units (u nknown) date) unknown) (unknown) (no (unknown) (unknown) WBC 11.8 H (units (unk nown) date) (4.5-11.0) X103/uL unknown) (unknown) (no (unknown) (unknown) XR chest 1V Stat (units (unknown) date) unknown) (unknown) (no (unknown) (unknown) XR hip w pel if (units (unknown) date) done LT 2V Stat unknown) (unknown) (no (unknown) (unknown) [EARS:] [Tympanic (units (unknown) date) membranes unknown) visualized, no erythema or bulging, no hemotympanum] (unknown) (no (unknown) (unknown) [Embedded Image (units (unknown) date) Not Available] unknown) (unknown) (no (unknown) (unknown) [PHARYNX:] [No (units (unknown) date) erythema, no unknown) tonsillar exudate, no cervical lymphadenopathy] (unknown) (no (unknown) (unknown) alcohol intake (units (unknown) date) frequency: 3 or unknown) more drinks per day (unknown) (no (unknown) (unknown) confusion (units (unkn own) date) unknown) (unknown) (no (unknown) (unknown) constipation, (units ( unknown) date) melena. unknown) (unknown) (no (unknown) (unknown) guarding or (units (un known) date) rebound. unknown) (unknown) (no (unknown) (unknown) have a known (units (u nknown) date) compression unknown) fracture from coughing. She is not sure how she fell (unknown) (no (unknown) (unknown) intact (units (unkno wn) date) unknown) (unknown) (no (unknown) (unknown) lose (units (unkno wn) date) consciousness. She unknown) is not on any anti-platelet or anticoagulation (unknown) (no (unknown) (unknown) medications. She (units (unknown) date) is complaining of unknown) left hip pain. It is obviously shortened. (unknown) (no (unknown) (unknown) membranes (units (unkn own) date) unknown) (unknown) (no (unknown) (unknown) morphine AdvReac (units (unknown) date) Intermediate unknown) Hallucinati Verified 04/30/22 00:03 (unknown) (no (unknown) (unknown) ng (units (unkno wn) date) unknown) (unknown) (no (unknown) (unknown) pain (units (unkno wn) date) unknown) (unknown) (no (unknown) (unknown) pain. (units (unkno wn) date) unknown) (unknown) (no (unknown) (unknown) palpitations (units (u nknown) date) shortness of unknown) breath fever or chills. She did not hit her head or (unknown) (no (unknown) (unknown) tonight she (units (un known) date) thinks maybe she unknown) stumbled. She did not have a chest pain Result panel 5 (unknown) (no date) (unknown) (unknown) Negative (units (unkn own) unknown) (unknown) (no date) (unknown) (unknown) Negative (units (unkn own) unknown) Result panel 6 (unknown) (no date) (unknown) (unknown) 180 mg/dl (unkn own) (unknown) (no date) (unknown) (unknown) 180 mg/dl (unkn own) Result panel 7 (unknown) (no (unknown) (unknown) (no value) (units (unk nown) date) unknown) (unknown) (no (unknown) (unknown) <Electronically (units (unknown) date) signed by Leila Souza D.O.> (unknown) (no (unknown) (unknown) [id number] (units (unkno wn) date) unknown) (unknown) (no (unknown) (unknown) 00:00 04/30/22 (units (unknown) date) unknown) (unknown) (no (unknown) (unknown) 00:00 (units (unkno wn) date) unknown) (unknown) (no (unknown) (unknown) 00:03 04/29/22 (units (unknown) date) unknown) (unknown) (no (unknown) (unknown) 00:15 (units (unkno wn) date) unknown) (unknown) (no (unknown) (unknown) 00:30 04/30/22 (units (unknown) date) unknown) (unknown) (no (unknown) (unknown) 00:30 (units (unkno wn) date) unknown) (unknown) (no (unknown) (unknown) 01:00 04/30/22 (units (unknown) date) unknown) (unknown) (no (unknown) (unknown) 01:00 (units (unkno wn) date) unknown) (unknown) (no (unknown) (unknown) 04/29/22 04/29/22 (units (unknown) date) 04/29/22 Range/Units unknown) (unknown) (no (unknown) (unknown) 04/29/22 23:43 (units (unknown) date) unknown) (unknown) (no (unknown) (unknown) 04/29/22 23:50 (units (unknown) date) unknown) (unknown) (no (unknown) (unknown) 04/30/22 00:15 (units (unknown) date) unknown) (unknown) (no (unknown) (unknown) 04/30/22 00:40 (units (unknown) date) unknown) (unknown) (no (unknown) (unknown) 04/30/22 00:54 (units (unknown) date) unknown) (unknown) (no (unknown) (unknown) 04/30/22 0231 (units ( unknown) date) unknown) (unknown) (no (unknown) (unknown) 04/30/22 (units (unkno wn) date) Range/Units unknown) (unknown) (no (unknown) (unknown) 04/30/22 (units (unkno wn) date) unknown) (unknown) (no (unknown) (unknown) 12 point review of (units (unknown) date) systems is negative unknown) except for those stated above and HPI (unknown) (no (unknown) (unknown) 23:50 23:50 23:50 (units (unknown) date) unknown) (unknown) (no (unknown) (unknown) 23:56 04/30/22 (units (unknown) date) unknown) (unknown) (no (unknown) (unknown) ? (units (unkno wn) date) unknown) (unknown) (no (unknown) (unknown) ABDOMEN: Soft, (units (unknown) date) nontender. unknown) Normoactive bowel sounds all 4 quadrants. No (unknown) (no (unknown) (unknown) ALT (<35) IU/L (units (unknown) date) unknown) (unknown) (no (unknown) (unknown) ALT 15 (<35) IU/L (units (unknown) date) unknown) (unknown) (no (unknown) (unknown) AST (14-36) IU/L (units (unknown) date) unknown) (unknown) (no (unknown) (unknown) AST 29 (14-36) IU/L (unit s (unknown) date) unknown) (unknown) (no (unknown) (unknown) Accession Number: (units (unknown) date) [id number] ?? unknown) (unknown) (no (unknown) (unknown) Accession Number: (units (unknown) date) [id number] ?? unknown) (unknown) (no (unknown) (unknown) Acct:[id number] (units (unknown) date) unknown) (unknown) (no (unknown) (unknown) Admit Date/Time: (units (unknown) date) 04/30/22 02:20 unknown) (unknown) (no (unknown) (unknown) Admit Provider: (units (unknown) date) Tyree Hickman unknown) (unknown) (no (unknown) (unknown) Age/Sex: 61 / F (units (unknown) date) unknown) (unknown) (no (unknown) (unknown) Albumin (3.5-5.0) (units (unknown) date) g/dL unknown) (unknown) (no (unknown) (unknown) Albumin 2.9 L (units ( unknown) date) (3.5-5.0) g/dL unknown) (unknown) (no (unknown) (unknown) Albumin/Globulin (units (unknown) date) Ratio (1.0-2.8) unknown) (unknown) (no (unknown) (unknown) Albumin/Globulin (units (unknown) date) Ratio 0.9 L unknown) (1.0-2.8) (unknown) (no (unknown) (unknown) Alcohol type: wine (units (unknown) date) unknown) (unknown) (no (unknown) (unknown) Alkaline (units (unkno wn) date) Phosphatase (38-126) unknown) U/L (unknown) (no (unknown) (unknown) Alkaline (units (unkno wn) date) Phosphatase 96 unknown) (38-126) U/L (unknown) (no (unknown) (unknown) Allergies (units (unkn own) date) unknown) (unknown) (no (unknown) (unknown) Allergy/AdvReac (units (unknown) date) Type Severity unknown) Reaction Status Date / Time (unknown) (no (unknown) (unknown) BUN < 2 L (7-17) (units (unknown) date) mg/dL unknown) (unknown) (no (unknown) (unknown) BUN (7-17) mg/dL (units (unknown) date) unknown) (unknown) (no (unknown) (unknown) BUN/Creatinine (units (unknown) date) Ratio (6-22) unknown) (unknown) (no (unknown) (unknown) BUN/Creatinine (units (unknown) date) Ratio 6.3 (6-22) unknown) (unknown) (no (unknown) (unknown) Baso # (Auto) Not (units (unknown) date) Reportable unknown) (unknown) (no (unknown) (unknown) Baso # (Auto) (units ( unknown) date) unknown) (unknown) (no (unknown) (unknown) Baso % (Auto) Not (units (unknown) date) Reportable unknown) (unknown) (no (unknown) (unknown) Baso % (Auto) (units ( unknown) date) unknown) (unknown) (no (unknown) (unknown) Bedside Urine (units ( unknown) date) Bilirubin - Negative unknown) (unknown) (no (unknown) (unknown) Bedside Urine (units ( unknown) date) Glucose Negative unknown) (unknown) (no (unknown) (unknown) Bedside Urine (units ( unknown) date) Ketone - Negative unknown) (unknown) (no (unknown) (unknown) Bedside Urine (units ( unknown) date) Leukocytes - unknown) Negative (unknown) (no (unknown) (unknown) Bedside Urine (units ( unknown) date) Nitrite - Negative unknown) (unknown) (no (unknown) (unknown) Bedside Urine (units ( unknown) date) Occult Blood - unknown) Negative (unknown) (no (unknown) (unknown) Bedside Urine (units ( unknown) date) Protein - Negative unknown) (unknown) (no (unknown) (unknown) Bedside Urine (units ( unknown) date) Urobilinogen - unknown) Negative (unknown) (no (unknown) (unknown) Bedside Urine pH 6 (units (unknown) date) unknown) (unknown) (no (unknown) (unknown) Blood Pressure (units (unknown) date) 102/61 unknown) (unknown) (no (unknown) (unknown) Blood Pressure (units (unknown) date) 109/74 unknown) (unknown) (no (unknown) (unknown) Blood Pressure (units (unknown) date) 115/74 112/68 unknown) (unknown) (no (unknown) (unknown) Bones and chest (units (unknown) date) wall:? No suspicious unknown) bony lesions.? Overlying soft tissues (unknown) (no (unknown) (unknown) Bones:? No (units (unk nown) date) dislocations.? unknown) Pelvic ring appears intact.? No suspicious bony (unknown) (no (unknown) (unknown) CARDIOVASCULAR: (units (unknown) date) Denies chest pain, unknown) palpitations, orthopnea, edema (unknown) (no (unknown) (unknown) CARDIOVASCULAR: (units (unknown) date) Regular rate and unknown) rhythm without murmurs, rubs or gallops. (unknown) (no (unknown) (unknown) CBC Auto Diff (units ( unknown) date) [Complete Blood unknown) Count AUTO DIFF] Stat (unknown) (no (unknown) (unknown) CMP [Comprehensive (units (unknown) date) Metabolic Panel] unknown) Stat (unknown) (no (unknown) (unknown) COMPARISON:? None. (units (unknown) date) unknown) (unknown) (no (unknown) (unknown) COVID19 -Nasal (units (unknown) date) RAPID/Pre-Proc Stat unknown) (unknown) (no (unknown) (unknown) Calcium (8.4-10.2) (units (unknown) date) mg/dL unknown) (unknown) (no (unknown) (unknown) Calcium 7.4 L (units ( unknown) date) (8.4-10.2) mg/dL unknown) (unknown) (no (unknown) (unknown) Carbon Dioxide (units (unknown) date) (22-32) mmol/L unknown) (unknown) (no (unknown) (unknown) Carbon Dioxide 22 (units (unknown) date) (22-32) mmol/L unknown) (unknown) (no (unknown) (unknown) Chest x-ray: (units (u nknown) date) unknown) (unknown) (no (unknown) (unknown) Chief Complaint: (units (unknown) date) Fall unknown) (unknown) (no (unknown) (unknown) Chloride (98-107) (units (unknown) date) mmol/L unknown) (unknown) (no (unknown) (unknown) Chloride 92 L (units ( unknown) date) (98-107) mmol/L unknown) (unknown) (no (unknown) (unknown) Clinical (units (unkno wn) date) Impression: unknown) (unknown) (no (unknown) (unknown) Closed fracture of (units (unknown) date) left hip, unknown) Hyponatremia (unknown) (no (unknown) (unknown) Consult to (units (unk nown) date) Orthopedic Surgery unknown) Stat (unknown) (no (unknown) (unknown) Course (units (unkno wn) date) unknown) (unknown) (no (unknown) (unknown) Creatinine (units (unk nown) date) (0.52-1.04) mg/dL unknown) (unknown) (no (unknown) (unknown) Creatinine 0.32 L (units (unknown) date) (0.52-1.04) mg/dL unknown) (unknown) (no (unknown) (unknown) : 1960 (units (unknown) date) Acct:[id number] unknown) (unknown) (no (unknown) (unknown) : 1960 (units (unknown) date) unknown) (unknown) (no (unknown) (unknown) Date of Service: (units (unknown) date) 04/29/22 unknown) (unknown) (no (unknown) (unknown) Date of Service: (units (unknown) date) 04/30/22 unknown) (unknown) (no (unknown) (unknown) Departure (units (unkn own) date) unknown) (unknown) (no (unknown) (unknown) Dictated by: Adriano (units (unknown) date) Polly Varela on unknown) 04/30/2022 at 0:17 ? ? (unknown) (no (unknown) (unknown) Discharge Plan (units (unknown) date) unknown) (unknown) (no (unknown) (unknown) Discontinued (units (u nknown) date) Medications unknown) (unknown) (no (unknown) (unknown) Documented By: [facility] (units (unknown) date) unknown) (unknown) (no (unknown) (unknown) Documented By: TOMAS (units (unknown) date) unknown) (unknown) (no (unknown) (unknown) Dr. Hickman (units (u nknown) date) accepts patient unknown) (unknown) (no (unknown) (unknown) ECG Data (units (unkno wn) date) unknown) (unknown) (no (unknown) (unknown) ED Orders (units (unkn own) date) unknown) (unknown) (no (unknown) (unknown) ER Physician: (units ( unknown) date) Leila Souza D.O. unknown) (unknown) (no (unknown) (unknown) ETOH [Ethanol (units ( unknown) date) (ETOH)] Stat unknown) (unknown) (no (unknown) (unknown) EXTREMITIES: Normal (unit s (unknown) date) range of motion, no unknown) clubbing or edema. Neurovascularly (unknown) (no (unknown) (unknown) Emergency Report (units (unknown) date) unknown) (unknown) (no (unknown) (unknown) Eos % (Auto) Not (units (unknown) date) Reportable unknown) (unknown) (no (unknown) (unknown) Eos % (Auto) (units (u nknown) date) unknown) (unknown) (no (unknown) (unknown) Esterase (units (unkno wn) date) unknown) (unknown) (no (unknown) (unknown) Estimated GFR > 60 (units (unknown) date) (>60) mL/min unknown) (unknown) (no (unknown) (unknown) Estimated GFR (>60) (unit s (unknown) date) mL/min unknown) (unknown) (no (unknown) (unknown) Ethyl Alcohol ( - (units (unknown) date) 10) mg/dL unknown) (unknown) (no (unknown) (unknown) Ethyl Alcohol 180 H (unit s (unknown) date) ( - 10) mg/dL unknown) (unknown) (no (unknown) (unknown) Exam (units (unkno wn) date) unknown) (unknown) (no (unknown) (unknown) Extremity x-ray #1: (unit s (unknown) date) unknown) (unknown) (no (unknown) (unknown) FINDINGS:? (units (unk nown) date) unknown) (unknown) (no (unknown) (unknown) GASTROINTESTINAL: (units (unknown) date) Denies nausea, unknown) vomiting, abdominal pain, diarrhea, (unknown) (no (unknown) (unknown) GENERAL: Denies (units (unknown) date) chills, fatigue, unknown) malaise, fever, sweats, travel (unknown) (no (unknown) (unknown) GENERAL: (units (unkno wn) date) unknown) (unknown) (no (unknown) (unknown) : Denies dysuria, (units (unknown) date) frequency, unknown) incontinence, hematuria, urinary retention, flank (unknown) (no (unknown) (unknown) General (units (unkno wn) date) unknown) (unknown) (no (unknown) (unknown) Globulin (1.7-4.1) (units (unknown) date) g/dL unknown) (unknown) (no (unknown) (unknown) Globulin 3.1 (units (u nknown) date) (1.7-4.1) g/dL unknown) (unknown) (no (unknown) (unknown) Glucose (80-110) (units (unknown) date) mg/dL unknown) (unknown) (no (unknown) (unknown) Glucose 96 (80-110) (unit s (unknown) date) mg/dL unknown) (unknown) (no (unknown) (unknown) HEENT: Denies sinus (unit s (unknown) date) pain, ear pain, sore unknown) throat, difficulty swallowing, neck (unknown) (no (unknown) (unknown) HEENT: Head (units (un known) date) atraumatic,EOMI, unknown) pupils reactive, face symmetric, [moist] mucous (unknown) (no (unknown) (unknown) HPI - Fall (units (unk nown) date) unknown) (unknown) (no (unknown) (unknown) HPI Narrative: (units (unknown) date) unknown) (unknown) (no (unknown) (unknown) Hct (36-46) % (units ( unknown) date) unknown) (unknown) (no (unknown) (unknown) Hct 34.9 L (36-46) (units (unknown) date) % unknown) (unknown) (no (unknown) (unknown) Hgb (12.0-16.0) (units (unknown) date) g/dL unknown) (unknown) (no (unknown) (unknown) Hgb 11.9 L (units (unk nown) date) (12.0-16.0) g/dL unknown) (unknown) (no (unknown) (unknown) History of Present (units (unknown) date) Illness unknown) (unknown) (no (unknown) (unknown) Home Medications (units (unknown) date) unknown) (unknown) (no (unknown) (unknown) Hydromorphone HCl (units (unknown) date) (Hydromorphone 0.5 unknown) Mg Inj) 0.5 mg IV NOW ONE (unknown) (no (unknown) (unknown) IMPRESSION:? Inter (units (unknown) date) trochanteric left unknown) hip fracture, associated with a lateral (unknown) (no (unknown) (unknown) IMPRESSION:? (units (u nknown) date) Relatively large unknown) lung volumes, COPD may be present.? No trauma (unknown) (no (unknown) (unknown) INDICATIONS:? fall (units (unknown) date) unknown) (unknown) (no (unknown) (unknown) Imaging Data (units (u nknown) date) unknown) (unknown) (no (unknown) (unknown) Initial Vital Signs (unit s (unknown) date) unknown) (unknown) (no (unknown) (unknown) Initial Vital (units ( unknown) date) Signs: unknown) (unknown) (no (unknown) (unknown) Interpretation: (units (unknown) date) unknown) (unknown) (no (unknown) (unknown) [facility] (units (unknown) date) [address] [place] [address] Street unknown) [place] [address] (unknown) (no (unknown) (unknown) Lab Data (units (unkno wn) date) unknown) (unknown) (no (unknown) (unknown) Lab Results (units (un known) date) unknown) (unknown) (no (unknown) (unknown) Labs: (units (unkno wn) date) unknown) (unknown) (no (unknown) (unknown) Last Admin: (units (un known) date) 04/30/22 00:05 Dose: unknown) Not Given (unknown) (no (unknown) (unknown) Last Admin: (units (un known) date) 04/30/22 00:51 Dose: unknown) 0.5 mg (unknown) (no (unknown) (unknown) Left hip is tender (units (unknown) date) left leg is unknown) shortened (unknown) (no (unknown) (unknown) Loc: ED (units (unkno wn) date) unknown) (unknown) (no (unknown) (unknown) Lungs and pleura:? (units (unknown) date) Lungs are clear.? No unknown) pleural effusions or pneumothorax.? (unknown) (no (unknown) (unknown) Lymph # (Auto) Not (units (unknown) date) Reportable unknown) (unknown) (no (unknown) (unknown) Lymph # (Auto) (units (unknown) date) unknown) (unknown) (no (unknown) (unknown) Lymph % (Auto) Not (units (unknown) date) Reportable unknown) (unknown) (no (unknown) (unknown) Lymph % (Auto) (units (unknown) date) unknown) (unknown) (no (unknown) (unknown) MCH (26-34) PG (units (unknown) date) unknown) (unknown) (no (unknown) (unknown) MCH 35.1 H (26-34) (units (unknown) date) PG unknown) (unknown) (no (unknown) (unknown) MCHC (30-36) % (units (unknown) date) unknown) (unknown) (no (unknown) (unknown) MCHC 34.2 (30-36) % (unit s (unknown) date) unknown) (unknown) (no (unknown) (unknown) MCV (80-100) fL (units (unknown) date) unknown) (unknown) (no (unknown) (unknown) MCV 102.6 H (units (un known) date) (80-100) fL unknown) (unknown) (no (unknown) (unknown) MDM - Fall (units (unk nown) date) unknown) (unknown) (no (unknown) (unknown) MDM Narrative (units ( unknown) date) unknown) (unknown) (no (unknown) (unknown) MR#: [id number] (units (unknown) date) unknown) (unknown) (no (unknown) (unknown) MUSCULOSKELETAL: (units (unknown) date) See HPI unknown) (unknown) (no (unknown) (unknown) Mediastinum:? (units ( unknown) date) Mediastinal contours unknown) appear normal.? Heart size is normal.? (unknown) (no (unknown) (unknown) Medical decision (units (unknown) date) making narrative: unknown) (unknown) (no (unknown) (unknown) Medication (units (unk nown) date) Instructions unknown) Recorded Confirmed (unknown) (no (unknown) (unknown) Mode of arrival: (units (unknown) date) EMS unknown) (unknown) (no (unknown) (unknown) [place] # (Auto) Not (units (unknown) date) Reportable unknown) (unknown) (no (unknown) (unknown) [place] # (Auto) (units ( unknown) date) unknown) (unknown) (no (unknown) (unknown) [place] % (Auto) Not (units (unknown) date) Reportable unknown) (unknown) (no (unknown) (unknown) [place] % (Auto) (units ( unknown) date) unknown) (unknown) (no (unknown) (unknown) Morphine Sulfate (units (unknown) date) (Morphine 2 Mg/Ml unknown) Inj) 2 mg IV NOW ONE (unknown) (no (unknown) (unknown) Multiple reports a (units (unknown) date) that she did not hit unknown) her head this time no need for CT head. (unknown) (no (unknown) (unknown) NEUROLOGIC: Denies (units (unknown) date) weakness, dizziness, unknown) headache, numbness, change in speech, (unknown) (no (unknown) (unknown) NEUROLOGICAL: Alert (unit s (unknown) date) and oriented x4 unknown) (unknown) (no (unknown) (unknown) Narrative: (units (unk nown) date) unknown) (unknown) (no (unknown) (unknown) Neut % (Auto) Not (units (unknown) date) Reportable unknown) (unknown) (no (unknown) (unknown) Neut % (Auto) (units ( unknown) date) unknown) (unknown) (no (unknown) (unknown) Next consult in (units (unknown) date) updated. unknown) (unknown) (no (unknown) (unknown) No Known Home (units ( unknown) date) Medications 08/10/19 unknown) 08/10/19 (unknown) (no (unknown) (unknown) Normal sinus rhythm (unit s (unknown) date) rate 66 NC interval unknown) 152 QRS [address] changes no T (unknown) (no (unknown) (unknown) Ordered: (units (unkno wn) date) unknown) (unknown) (no (unknown) (unknown) Ordering Provider: (units (unknown) date) Leila Souza D.O. unknown) (unknown) (no (unknown) (unknown) Orders (units (unkno wn) date) unknown) (unknown) (no (unknown) (unknown) Oxygen Delivery (units (unknown) date) Method Nasal Cannula unknown) (unknown) (no (unknown) (unknown) Oxygen Delivery (units (unknown) date) Method Room Air unknown) (unknown) (no (unknown) (unknown) Oxygen Delivery (units (unknown) date) Method unknown) (unknown) (no (unknown) (unknown) Oxygen Flow Rate 1 (units (unknown) date) unknown) (unknown) (no (unknown) (unknown) Oxygen Flow Rate (units (unknown) date) unknown) (unknown) (no (unknown) (unknown) PROCEDURE:? XR (units (unknown) date) CHEST 1V unknown) (unknown) (no (unknown) (unknown) PROCEDURE:? XR HIP (units (unknown) date) W PEL IF DONE LT 2V unknown) (unknown) (no (unknown) (unknown) PSYCHIATRIC: No (units (unknown) date) concerning unknown) psychosocial issues. (unknown) (no (unknown) (unknown) Patient (units (unkno wn) date) Disposition: unknown) Admitted As Inpatient (unknown) (no (unknown) (unknown) Patient History (units (unknown) date) unknown) (unknown) (no (unknown) (unknown) Patient also of (units (unknown) date) found to be unknown) hyponatremic with a sodium of 122 unclear if this (unknown) (no (unknown) (unknown) Patient has (units (un known) date) tolerated Dilaudid unknown) for pain. (unknown) (no (unknown) (unknown) Patient is a (units (u nknown) date) 61-year-old female unknown) history of smoking, presents today after fall. (unknown) (no (unknown) (unknown) Patient likely had (units (unknown) date) a mechanical fall. unknown) She is found have an intertrochanteric (unknown) (no (unknown) (unknown) Patient: (units (unkno wn) date) Nichol Meng Fausto unknown) MR#: [id number] (unknown) (no (unknown) (unknown) Patient: (units (unkno wn) date) [facility] unknown) (unknown) (no (unknown) (unknown) Penicillins (units (un known) date) [PENICILLINS] unknown) AdvReac Intermediate rash Verified 08/10/19 13:46 (unknown) (no (unknown) (unknown) Plt Count (150-400) (unit s (unknown) date) X103/uL unknown) (unknown) (no (unknown) (unknown) Plt Count 306 (units ( unknown) date) (150-400) X103/uL unknown) (unknown) (no (unknown) (unknown) Potassium (3.4-5.1) (unit s (unknown) date) mmol/L unknown) (unknown) (no (unknown) (unknown) Potassium 4.1 (units ( unknown) date) (3.4-5.1) mmol/L unknown) (unknown) (no (unknown) (unknown) Procedure: XR chest (unit s (unknown) date) 1V unknown) (unknown) (no (unknown) (unknown) Procedure: XR hip w (unit s (unknown) date) pel if done LT 2V unknown) (unknown) (no (unknown) (unknown) Pulse Oximetry 91 (units (unknown) date) unknown) (unknown) (no (unknown) (unknown) Pulse Oximetry 96 (units (unknown) date) 04/29/22 23:56 unknown) (unknown) (no (unknown) (unknown) Pulse Oximetry 97 (units (unknown) date) 96 unknown) (unknown) (no (unknown) (unknown) Pulse Oximetry 98 (units (unknown) date) unknown) (unknown) (no (unknown) (unknown) Pulse Rate 67 (units ( unknown) date) 04/29/22 23:56 unknown) (unknown) (no (unknown) (unknown) Pulse Rate 67 67 (units (unknown) date) unknown) (unknown) (no (unknown) (unknown) Pulse Rate 68 67 (units (unknown) date) unknown) (unknown) (no (unknown) (unknown) Pulse Rate 73 (units ( unknown) date) unknown) (unknown) (no (unknown) (unknown) RBC (4.0-5.2) (units ( unknown) date) X106/uL unknown) (unknown) (no (unknown) (unknown) RBC 3.40 L (units (unk nown) date) (4.0-5.2) X106/uL unknown) (unknown) (no (unknown) (unknown) RDW (11.6-14.8) % (units (unknown) date) unknown) (unknown) (no (unknown) (unknown) RDW 13.1 (units (unkno wn) date) (11.6-14.8) % unknown) (unknown) (no (unknown) (unknown) RESPIRATORY: Breath (unit s (unknown) date) sounds equal unknown) bilaterally, no wheezes rales or rhonchi. (unknown) (no (unknown) (unknown) RESPIRATORY: Denies (unit s (unknown) date) dyspnea, cough, unknown) wheezing, hemoptysis, sputum. (unknown) (no (unknown) (unknown) Radiologist's (units ( unknown) date) Impression: unknown) (unknown) (no (unknown) (unknown) Related Data (units (u nknown) date) unknown) (unknown) (no (unknown) (unknown) Respiratory Rate 16 (unit s (unknown) date) 19 unknown) (unknown) (no (unknown) (unknown) Respiratory Rate 18 (unit s (unknown) date) 18 unknown) (unknown) (no (unknown) (unknown) Respiratory Rate 19 (unit s (unknown) date) 04/29/22 23:56 unknown) (unknown) (no (unknown) (unknown) Respiratory Rate 24 (unit s (unknown) date) unknown) (unknown) (no (unknown) (unknown) Result diagrams: (units (unknown) date) unknown) (unknown) (no (unknown) (unknown) Review of Systems (units (unknown) date) unknown) (unknown) (no (unknown) (unknown) SARS-CoV-2 (PCR) (units (unknown) date) (Negative) unknown) (unknown) (no (unknown) (unknown) SARS-CoV-2 (PCR) (units (unknown) date) Negative (Negative) unknown) (unknown) (no (unknown) (unknown) SKIN: No rash, no (units (unknown) date) erythema, no unknown) pruritus (unknown) (no (unknown) (unknown) SKIN: Warm, dry, no (unit s (unknown) date) laceration, no unknown) petechiae, no rashes or lesions. (unknown) (no (unknown) (unknown) She states that she (unit s (unknown) date) has been using a unknown) walker for the past few weeks he she does (unknown) (no (unknown) (unknown) She was unable to (units (unknown) date) get up and required unknown) EMS assistance. (unknown) (no (unknown) (unknown) Signed By: (units (unk nown) date) unknown) (unknown) (no (unknown) (unknown) Signed (units (unkno wn) date) unknown) (unknown) (no (unknown) (unknown) Smoking Status: (units (unknown) date) Current every day unknown) smoker (unknown) (no (unknown) (unknown) Social History (units (unknown) date) (Reviewed 04/30/22 @ unknown) 00:37 by Leila Souza DO) (unknown) (no (unknown) (unknown) Sodium (137-145) (units (unknown) date) mmol/L unknown) (unknown) (no (unknown) (unknown) Sodium 122 L (units (u nknown) date) (137-145) mmol/L unknown) (unknown) (no (unknown) (unknown) Soft tissues:? The (units (unknown) date) visualized bowel gas unknown) pattern is normal.? No suspicious soft (unknown) (no (unknown) (unknown) Source: patient and (unit s (unknown) date) EMS unknown) (unknown) (no (unknown) (unknown) Stated Complaint: (units (unknown) date) GLF, left hip pain unknown) (unknown) (no (unknown) (unknown) Status post (units (un known) date) appendectomy unknown) (unknown) (no (unknown) (unknown) Status post breast (units (unknown) date) lumpectomy unknown) (unknown) (no (unknown) (unknown) Status post (units (un known) date) hysterectomy unknown) (unknown) (no (unknown) (unknown) Stop: 04/29/22 (units (unknown) date) 23:46 unknown) (unknown) (no (unknown) (unknown) Stop: 04/30/22 (units (unknown) date) 00:31 unknown) (unknown) (no (unknown) (unknown) Substance Use Type: (unit s (unknown) date) does not use unknown) (unknown) (no (unknown) (unknown) Surgical History (units (unknown) date) (Reviewed 04/30/22 @ unknown) 00:37 by Leila Souza DO) (unknown) (no (unknown) (unknown) Surgical changes (units (unknown) date) and devices:? None.? unknown) (unknown) (no (unknown) (unknown) TECHNIQUE:? AP (units (unknown) date) pelvis with lateral unknown) view(s) of the left hip(s).? (unknown) (no (unknown) (unknown) TECHNIQUE:? One (units (unknown) date) view of the chest unknown) was acquired.? (unknown) (no (unknown) (unknown) Temperature 97.7 F (units (unknown) date) unknown) (unknown) (no (unknown) (unknown) Temperature (units (un known) date) unknown) (unknown) (no (unknown) (unknown) Time Seen by (units (u nknown) date) Provider: 04/29/22 unknown) 23:36 (unknown) (no (unknown) (unknown) Total Bilirubin (units (unknown) date) (0.2-1.3) mg/dL unknown) (unknown) (no (unknown) (unknown) Total Bilirubin 0.4 (unit s (unknown) date) (0.2-1.3) mg/dL unknown) (unknown) (no (unknown) (unknown) Total Protein (units ( unknown) date) (6.3-8.2) g/dL unknown) (unknown) (no (unknown) (unknown) Total Protein 6.0 L (unit s (unknown) date) (6.3-8.2) g/dL unknown) (unknown) (no (unknown) (unknown) Urine Dip (units (unkn own) date) unknown) (unknown) (no (unknown) (unknown) Urine Specific (units (unknown) date) [place] 1.010 unknown) (unknown) (no (unknown) (unknown) Vital Signs - 8 hr (units (unknown) date) unknown) (unknown) (no (unknown) (unknown) Vital Signs (units (un known) date) unknown) (unknown) (no (unknown) (unknown) Vital signs: (units (u nknown) date) unknown) (unknown) (no (unknown) (unknown) WBC (4.5-11.0) (units (unknown) date) X103/uL unknown) (unknown) (no (unknown) (unknown) WBC 11.8 H (units (unk nown) date) (4.5-11.0) X103/uL unknown) (unknown) (no (unknown) (unknown) XR chest 1V Stat (units (unknown) date) unknown) (unknown) (no (unknown) (unknown) XR hip w pel if (units (unknown) date) done LT 2V Stat unknown) (unknown) (no (unknown) (unknown) XRay Report (units (un known) date) unknown) (unknown) (no (unknown) (unknown) [EARS:] [Tympanic (units (unknown) date) membranes unknown) visualized, no erythema or bulging, no hemotympanum] (unknown) (no (unknown) (unknown) [Embedded Image Not (unit s (unknown) date) Available] unknown) (unknown) (no (unknown) (unknown) [PHARYNX:] [No (units (unknown) date) erythema, no unknown) tonsillar exudate, no cervical lymphadenopathy] (unknown) (no (unknown) (unknown) acute or chronic (units (unknown) date) and its cause, unknown) possible alcohol use or other. (unknown) (no (unknown) (unknown) alcohol intake (units (unknown) date) frequency: 3 or more unknown) drinks per day (unknown) (no (unknown) (unknown) appear (units (unkno wn) date) unknown) (unknown) (no (unknown) (unknown) calcifications.? (units (unknown) date) unknown) (unknown) (no (unknown) (unknown) comminution. (units (u nknown) date) unknown) (unknown) (no (unknown) (unknown) confusion (units (unkn own) date) unknown) (unknown) (no (unknown) (unknown) constipation, (units ( unknown) date) melena. unknown) (unknown) (no (unknown) (unknown) contributed to her (units (unknown) date) fall. No sign of unknown) head injury and no anticoagulation. (unknown) (no (unknown) (unknown) found. (units (unkno wn) date) unknown) (unknown) (no (unknown) (unknown) fracture along with (unit s (unknown) date) obturator ring unknown) fracture. Distal pedal pulse is intact. His (unknown) (no (unknown) (unknown) fracture at (units (un known) date) unknown) (unknown) (no (unknown) (unknown) guarding or (units (un known) date) rebound. unknown) (unknown) (no (unknown) (unknown) have a known (units (u nknown) date) compression fracture unknown) from coughing. She is not sure how she fell (unknown) (no (unknown) (unknown) inferior (units (unkno wn) date) unknown) (unknown) (no (unknown) (unknown) intact (units (unkno wn) date) unknown) (unknown) (no (unknown) (unknown) is a inter (units (unk nown) date) trochanteric mildly unknown) comminuted left hip fracture, and beneath this (unknown) (no (unknown) (unknown) lesions.? There (units (unknown) date) unknown) (unknown) (no (unknown) (unknown) lose consciousness. (unit s (unknown) date) She is not on any unknown) anti-platelet or anticoagulation (unknown) (no (unknown) (unknown) medications. She is (unit s (unknown) date) complaining of left unknown) hip pain. It is obviously shortened. (unknown) (no (unknown) (unknown) membranes (units (unkn own) date) unknown) (unknown) (no (unknown) (unknown) mild (units (unkno wn) date) unknown) (unknown) (no (unknown) (unknown) morphine AdvReac (units (unknown) date) Intermediate unknown) Hallucinati Verified 04/30/22 00:03 (unknown) (no (unknown) (unknown) ng (units (unkno wn) date) unknown) (unknown) (no (unknown) (unknown) obturator ring (units (unknown) date) fracture on the unknown) left. (unknown) (no (unknown) (unknown) pain (units (unkno wn) date) unknown) (unknown) (no (unknown) (unknown) pain. (units (unkno wn) date) unknown) (unknown) (no (unknown) (unknown) palpitations (units (u nknown) date) shortness of breath unknown) fever or chills. She did not hit her head or (unknown) (no (unknown) (unknown) patient is also (units (unknown) date) intoxicated with unknown) alcohol level of 180 which may have (unknown) (no (unknown) (unknown) the inferior (units (u nknown) date) obturator ring on unknown) the left there is a 2nd area of fracture with (unknown) (no (unknown) (unknown) tissue (units (unkno wn) date) unknown) (unknown) (no (unknown) (unknown) tonight she thinks (units (unknown) date) maybe she stumbled. unknown) She did not have a chest pain (unknown) (no (unknown) (unknown) unremarkable.? (units (unknown) date) unknown) (unknown) (no (unknown) (unknown) wave inversion (units (unknown) date) unknown) Result panel 8 (unknown) (no date) (unknown) (unknown) 188 mosmol/kg 2695 -5 (unknown) (no date) (unknown) (unknown) 188 mosmol/kg (unk nown) Result panel 9 (unknown) (no date) (unknown) (unknown) 1.0 % (unkn own) (unknown) (no date) (unknown) (unknown) 1.0 % (unkn own) (unknown) (no date) (unknown) (unknown) 100 (units (unkn own) unknown) (unknown) (no date) (unknown) (unknown) 102.6 fl (unkn own) (unknown) (no date) (unknown) (unknown) 11.8 x10 (unkn own) 3/ul (unknown) (no date) (unknown) (unknown) 11.9 g/dl (unkn own) (unknown) (no date) (unknown) (unknown) 13.1 % (unkn own) (unknown) (no date) (unknown) (unknown) 21.0 % (unkn own) (unknown) (no date) (unknown) (unknown) 3.40 x10 (unkn own) 6/ul (unknown) (no date) (unknown) (unknown) 306 x10 (unkn own) 3/ul (unknown) (no date) (unknown) (unknown) 34.2 % (unkn own) (unknown) (no date) (unknown) (unknown) 34.9 % (unkn own) (unknown) (no date) (unknown) (unknown) 35.1 pg (unkn own) (unknown) (no date) (unknown) (unknown) 68.0 % (unkn own) (unknown) (no date) (unknown) (unknown) 8142 /ul (unkn own) (unknown) (no date) (unknown) (unknown) 9.0 % (unkn own) (unknown) (no date) (unknown) (unknown) Normal (units (unkn own) Morphology unknown) Result panel 10 (unknown) (no (unknown) (unknown) (no value) (units (unk nown) date) unknown) (unknown) (no (unknown) (unknown) (past 8 hours): (units (unknown) date) unknown) (unknown) (no (unknown) (unknown) -dietary consult (units (unknown) date) unknown) (unknown) (no (unknown) (unknown) -encouraged (units (un known) date) cessation unknown) (unknown) (no (unknown) (unknown) -follow up as (units ( unknown) date) outpatient unknown) (unknown) (no (unknown) (unknown) -for now ordered (units (unknown) date) for CIWA protocol unknown) (unknown) (no (unknown) (unknown) -gentle IVF (units (un known) date) unknown) (unknown) (no (unknown) (unknown) -keep patient npo (units (unknown) date) unknown) (unknown) (no (unknown) (unknown) -ordered for urine (units (unknown) date) osms unknown) (unknown) (no (unknown) (unknown) -ordered mvi, (units ( unknown) date) thiamine, folate unknown) (unknown) (no (unknown) (unknown) -orthopedic surgery (unit s (unknown) date) consulted unknown) (unknown) (no (unknown) (unknown) -pain medications (units (unknown) date) ordered unknown) (unknown) (no (unknown) (unknown) -patient declined (units (unknown) date) nicotine patch unknown) (unknown) (no (unknown) (unknown) -patient denies any (unit s (unknown) date) history of unknown) withdrawal (unknown) (no (unknown) (unknown) -patient with poor (units (unknown) date) appetite, BMI 16 unknown) (unknown) (no (unknown) (unknown) -pelvic fracture (units (unknown) date) also noted on xray unknown) (unknown) (no (unknown) (unknown) -possibly alcohol (units (unknown) date) contributing unknown) (unknown) (no (unknown) (unknown) -possibly secondary (unit s (unknown) date) to intoxication unknown) (unknown) (no (unknown) (unknown) -recheck sodium (units (unknown) date) with morning labs unknown) (unknown) (no (unknown) (unknown) -suspect secondary (units (unknown) date) to alcohol abuse unknown) (unknown) (no (unknown) (unknown) -suspect secondary (units (unknown) date) to hypovolemia and unknown) possible beer potomania given poor oral (unknown) (no (unknown) (unknown) -unclear chronicity (unit s (unknown) date) unknown) (unknown) (no (unknown) (unknown) -wasn't forthcoming (unit s (unknown) date) how much she drinks, unknown) concerning may be significant amount (unknown) (no (unknown) (unknown) [id number] (units (unkno wn) date) unknown) (unknown) (no (unknown) (unknown) 00:00 04/30/22 (units (unknown) date) unknown) (unknown) (no (unknown) (unknown) 00:00 (units (unkno wn) date) unknown) (unknown) (no (unknown) (unknown) 00:03 04/29/22 (units (unknown) date) unknown) (unknown) (no (unknown) (unknown) 00:15 (units (unkno wn) date) unknown) (unknown) (no (unknown) (unknown) 00:30 04/30/22 (units (unknown) date) unknown) (unknown) (no (unknown) (unknown) 00:30 (units (unkno wn) date) unknown) (unknown) (no (unknown) (unknown) 01:00 04/30/22 (units (unknown) date) unknown) (unknown) (no (unknown) (unknown) 01:30 04/30/22 (units (unknown) date) unknown) (unknown) (no (unknown) (unknown) 01:30 (units (unkno wn) date) unknown) (unknown) (no (unknown) (unknown) 02:00 04/30/22 (units (unknown) date) unknown) (unknown) (no (unknown) (unknown) 02:00 (units (unkno wn) date) unknown) (unknown) (no (unknown) (unknown) 02:30 04/30/22 (units (unknown) date) unknown) (unknown) (no (unknown) (unknown) 02:51 (units (unkno wn) date) unknown) (unknown) (no (unknown) (unknown) 03:15 (units (unkno wn) date) unknown) (unknown) (no (unknown) (unknown) 1. Acute left hip (units (unknown) date) fracture secondary unknown) to fall (unknown) (no (unknown) (unknown) 04/29/22 04/29/22 (units (unknown) date) 04/29/22 unknown) (unknown) (no (unknown) (unknown) 04/29/22 23:50 (units (unknown) date) unknown) (unknown) (no (unknown) (unknown) 04/30/22 0553 (units ( unknown) date) unknown) (unknown) (no (unknown) (unknown) 04/30/22 (units (unkno wn) date) unknown) (unknown) (no (unknown) (unknown) 14 systems reviewed (unit s (unknown) date) and negative aside unknown) from what is noted in HPI (unknown) (no (unknown) (unknown) 180. UA negative. (units (unknown) date) Chest xray with unknown) large lung volumes. Hip xray with left (unknown) (no (unknown) (unknown) 2. Hyponatremia (units (unknown) date) unknown) (unknown) (no (unknown) (unknown) 23:50 23:50 23:50 (units (unknown) date) unknown) (unknown) (no (unknown) (unknown) 23:56 04/30/22 (units (unknown) date) unknown) (unknown) (no (unknown) (unknown) 3. Macrocytic (units ( unknown) date) anemia unknown) (unknown) (no (unknown) (unknown) 4. Active smoker (units (unknown) date) unknown) (unknown) (no (unknown) (unknown) 5. Alcohol (units (unk nown) date) intoxication unknown) (unknown) (no (unknown) (unknown) 6. Cachexia, (units (u nknown) date) malnutrition unknown) (unknown) (no (unknown) (unknown) ABD: soft, (units (unk nown) date) nontender, unknown) nondistended, no organomegaly (unknown) (no (unknown) (unknown) ALT 15 (units (unkno wn) date) unknown) (unknown) (no (unknown) (unknown) ALT (units (unkno wn) date) unknown) (unknown) (no (unknown) (unknown) AST 29 (units (unkno wn) date) unknown) (unknown) (no (unknown) (unknown) AST (units (unkno wn) date) unknown) (unknown) (no (unknown) (unknown) Age/Sex: 61 / F (units (unknown) date) unknown) (unknown) (no (unknown) (unknown) Albumin 2.9 L (units ( unknown) date) unknown) (unknown) (no (unknown) (unknown) Albumin (units (unkno wn) date) unknown) (unknown) (no (unknown) (unknown) Albumin/Globulin (units (unknown) date) Ratio 0.9 L unknown) (unknown) (no (unknown) (unknown) Albumin/Globulin (units (unknown) date) Ratio unknown) (unknown) (no (unknown) (unknown) Alkaline (units (unkno wn) date) Phosphatase 96 unknown) (unknown) (no (unknown) (unknown) Alkaline (units (unkno wn) date) Phosphatase unknown) (unknown) (no (unknown) (unknown) Allergies (units (unkn own) date) unknown) (unknown) (no (unknown) (unknown) Allergy/AdvReac (units (unknown) date) Type Severity unknown) Reaction Status Date / Time (unknown) (no (unknown) (unknown) Assessment + Plan (units (unknown) date) narrative: unknown) (unknown) (no (unknown) (unknown) Assessment + Plan (units (unknown) date) unknown) (unknown) (no (unknown) (unknown) BUN < 2 L (units (unkn own) date) unknown) (unknown) (no (unknown) (unknown) BUN (units (unkno wn) date) unknown) (unknown) (no (unknown) (unknown) BUN/Creatinine (units (unknown) date) Ratio 6.3 unknown) (unknown) (no (unknown) (unknown) BUN/Creatinine (units (unknown) date) Ratio unknown) (unknown) (no (unknown) (unknown) Band Neutrophils % (units (unknown) date) 1.0 L unknown) (unknown) (no (unknown) (unknown) Band Neutrophils % (units (unknown) date) unknown) (unknown) (no (unknown) (unknown) Baso # (Auto) Not (units (unknown) date) Reportable unknown) (unknown) (no (unknown) (unknown) Baso # (Auto) (units ( unknown) date) unknown) (unknown) (no (unknown) (unknown) Baso % (Auto) Not (units (unknown) date) Reportable unknown) (unknown) (no (unknown) (unknown) Baso % (Auto) (units ( unknown) date) unknown) (unknown) (no (unknown) (unknown) Blood Pressure (units (unknown) date) 102/61 unknown) (unknown) (no (unknown) (unknown) Blood Pressure (units (unknown) date) 105/66 unknown) (unknown) (no (unknown) (unknown) Blood Pressure (units (unknown) date) 109/74 111/66 unknown) (unknown) (no (unknown) (unknown) Blood Pressure (units (unknown) date) 113/64 133/80 unknown) (unknown) (no (unknown) (unknown) Blood Pressure (units (unknown) date) 115/74 112/68 unknown) (unknown) (no (unknown) (unknown) Blood Pressure (units (unknown) date) unknown) (unknown) (no (unknown) (unknown) CODE: Full (units (unk nown) date) unknown) (unknown) (no (unknown) (unknown) CV: regular rate (units (unknown) date) and rhythm, no unknown) murmurs (unknown) (no (unknown) (unknown) Calcium 7.4 L (units ( unknown) date) unknown) (unknown) (no (unknown) (unknown) Calcium (units (unkno wn) date) unknown) (unknown) (no (unknown) (unknown) Carbon Dioxide 22 (units (unknown) date) unknown) (unknown) (no (unknown) (unknown) Carbon Dioxide (units (unknown) date) unknown) (unknown) (no (unknown) (unknown) Chief complaint: (units (unknown) date) GLF, left hip pain unknown) (unknown) (no (unknown) (unknown) Chloride 92 L (units ( unknown) date) unknown) (unknown) (no (unknown) (unknown) Chloride (units (unkno wn) date) unknown) (unknown) (no (unknown) (unknown) Creatinine 0.32 L (units (unknown) date) unknown) (unknown) (no (unknown) (unknown) Creatinine (units (unk nown) date) unknown) (unknown) (no (unknown) (unknown) Critical Care time: (unit s (unknown) date) unknown) (unknown) (no (unknown) (unknown) : 1960 (units (unknown) date) Acct:[id number] unknown) (unknown) (no (unknown) (unknown) Date Patient Seen: (units (unknown) date) 04/30/22 unknown) (unknown) (no (unknown) (unknown) Date of Service: (units (unknown) date) 04/30/22 unknown) (unknown) (no (unknown) (unknown) EXT: warm and well (units (unknown) date) perfused, left hip unknown) tender (unknown) (no (unknown) (unknown) Environment (units (un known) date) unknown) (unknown) (no (unknown) (unknown) Eos % (Auto) Not (units (unknown) date) Reportable unknown) (unknown) (no (unknown) (unknown) Eos % (Auto) (units (u nknown) date) unknown) (unknown) (no (unknown) (unknown) Estimated GFR > 60 (units (unknown) date) unknown) (unknown) (no (unknown) (unknown) Estimated GFR (units ( unknown) date) unknown) (unknown) (no (unknown) (unknown) Ethyl Alcohol 180 H (unit s (unknown) date) unknown) (unknown) (no (unknown) (unknown) Ethyl Alcohol (units ( unknown) date) unknown) (unknown) (no (unknown) (unknown) Exam Narrative: (units (unknown) date) unknown) (unknown) (no (unknown) (unknown) Exam (units (unkno wn) date) unknown) (unknown) (no (unknown) (unknown) Family + Social (units (unknown) date) History unknown) (unknown) (no (unknown) (unknown) Feels Safe in (units ( unknown) date) Current Yes unknown) (unknown) (no (unknown) (unknown) GEN: no acute (units ( unknown) date) distress unknown) (unknown) (no (unknown) (unknown) Globulin 3.1 (units (u nknown) date) unknown) (unknown) (no (unknown) (unknown) Globulin (units (unkno wn) date) unknown) (unknown) (no (unknown) (unknown) Glucose 96 (units (unk nown) date) unknown) (unknown) (no (unknown) (unknown) Glucose (units (unkno wn) date) unknown) (unknown) (no (unknown) (unknown) HEENT: moist mucous (unit s (unknown) date) membranes, PERRL unknown) (unknown) (no (unknown) (unknown) Hct 34.9 L (units (unk nown) date) unknown) (unknown) (no (unknown) (unknown) Hct (units (unkno wn) date) unknown) (unknown) (no (unknown) (unknown) Hgb 11.9 L (units (unk nown) date) unknown) (unknown) (no (unknown) (unknown) Hgb (units (unkno wn) date) unknown) (unknown) (no (unknown) (unknown) History + Physical (units (unknown) date) Report unknown) (unknown) (no (unknown) (unknown) History of Present (units (unknown) date) Illness unknown) (unknown) (no (unknown) (unknown) Home Medications (units (unknown) date) and Allergies unknown) (unknown) (no (unknown) (unknown) Home Medications (units (unknown) date) unknown) (unknown) (no (unknown) (unknown) I have utilized all (unit s (unknown) date) available resources unknown) to reconcile the patient's home (unknown) (no (unknown) (unknown) I spent a total of (units (unknown) date) [] minutes of unknown) critical care time on this patient's care (unknown) (no (unknown) (unknown) In the ED workup was (unit s (unknown) date) done, vitals notable unknown) for afebrile, blood pressure 110s/70s. (unknown) (no (unknown) (unknown) [facility] (units (unknown) date) [address] unknown) [place] [address] (unknown) (no (unknown) (unknown) Laboratory Results (units (unknown) date) - last 24 hr unknown) (unknown) (no (unknown) (unknown) Labs notable for (units (unknown) date) WBC 11.8, hgb 11.9, unknown) plts 306. Na 122, creatinine 0.32. EtOH (unknown) (no (unknown) (unknown) Labs (units (unkno wn) date) unknown) (unknown) (no (unknown) (unknown) Labs: (units (unkno wn) date) unknown) (unknown) (no (unknown) (unknown) Lymph # (Auto) Not (units (unknown) date) Reportable unknown) (unknown) (no (unknown) (unknown) Lymph # (Auto) (units (unknown) date) unknown) (unknown) (no (unknown) (unknown) Lymph % (Auto) Not (units (unknown) date) Reportable unknown) (unknown) (no (unknown) (unknown) Lymph % (Auto) (units (unknown) date) unknown) (unknown) (no (unknown) (unknown) Lymphocytes % (units ( unknown) date) (Manual) 21.0 L unknown) (unknown) (no (unknown) (unknown) Lymphocytes % (units ( unknown) date) (Manual) unknown) (unknown) (no (unknown) (unknown) MCH 35.1 H (units (unk nown) date) unknown) (unknown) (no (unknown) (unknown) MCH (units (unkno wn) date) unknown) (unknown) (no (unknown) (unknown) MCHC 34.2 (units (unkn own) date) unknown) (unknown) (no (unknown) (unknown) MCHC (units (unkno wn) date) unknown) (unknown) (no (unknown) (unknown) MCV 102.6 H (units (un known) date) unknown) (unknown) (no (unknown) (unknown) MCV (units (unkno wn) date) unknown) (unknown) (no (unknown) (unknown) Medication (units (unk nown) date) Instructions unknown) Recorded Confirmed Type (unknown) (no (unknown) (unknown) Medications: (units (u nknown) date) ibuprofen PRN unknown) (unknown) (no (unknown) (unknown) Meds (units (unkno wn) date) unknown) (unknown) (no (unknown) (unknown) Metamyelocytes % (units (unknown) date) 1.0 H unknown) (unknown) (no (unknown) (unknown) Metamyelocytes % (units (unknown) date) unknown) (unknown) (no (unknown) (unknown) [place] # (Auto) Not (units (unknown) date) Reportable unknown) (unknown) (no (unknown) (unknown) [place] # (Auto) (units ( unknown) date) unknown) (unknown) (no (unknown) (unknown) [place] % (Auto) Not (units (unknown) date) Reportable unknown) (unknown) (no (unknown) (unknown) [place] % (Auto) (units ( unknown) date) unknown) (unknown) (no (unknown) (unknown) Monocytes % (units (un known) date) (Manual) 9.0 unknown) (unknown) (no (unknown) (unknown) Monocytes % (units (un known) date) (Manual) unknown) (unknown) (no (unknown) (unknown) Ms. Meng is a (units (unknown) date) 61W active smoker, unknown) no known PMH who presents after a fall. (unknown) (no (unknown) (unknown) NECK: trachea (units ( unknown) date) midline, no JVD unknown) (unknown) (no (unknown) (unknown) NEURO: awake, (units ( unknown) date) alert, oriented, no unknown) focal deficits (unknown) (no (unknown) (unknown) Narrative (units (unkn own) date) unknown) (unknown) (no (unknown) (unknown) Narrative: (units (unk nown) date) unknown) (unknown) (no (unknown) (unknown) Neut % (Auto) Not (units (unknown) date) Reportable unknown) (unknown) (no (unknown) (unknown) Neut % (Auto) (units ( unknown) date) unknown) (unknown) (no (unknown) (unknown) Neutrophils # (units ( unknown) date) (Manual) 8142 H unknown) (unknown) (no (unknown) (unknown) Neutrophils # (units ( unknown) date) (Manual) unknown) (unknown) (no (unknown) (unknown) No Known Home (units ( unknown) date) Medications 08/10/19 unknown) 08/10/19 History (unknown) (no (unknown) (unknown) Objective (units (unkn own) date) unknown) (unknown) (no (unknown) (unknown) Oxygen Delivery (units (unknown) date) Method Nasal Cannula unknown) (unknown) (no (unknown) (unknown) Oxygen Delivery (units (unknown) date) Method Room Air unknown) (unknown) (no (unknown) (unknown) Oxygen Delivery (units (unknown) date) Method unknown) (unknown) (no (unknown) (unknown) Oxygen Flow Rate 0 (units (unknown) date) unknown) (unknown) (no (unknown) (unknown) Oxygen Flow Rate 1 (units (unknown) date) unknown) (unknown) (no (unknown) (unknown) Oxygen Flow Rate (units (unknown) date) unknown) (unknown) (no (unknown) (unknown) PMH: none (units (unkn own) date) unknown) (unknown) (no (unknown) (unknown) PULM: clear (units (un known) date) bilaterally, no unknown) wheezes, rhonchi, rales (unknown) (no (unknown) (unknown) Patient History (units (unknown) date) unknown) (unknown) (no (unknown) (unknown) Patient: (units (unkno wn) date) Nichol Meng unknown) MR#: [id number] (unknown) (no (unknown) (unknown) Penicillins (units (un known) date) [PENICILLINS] unknown) AdvReac Intermediate rash Verified 08/10/19 13:46 (unknown) (no (unknown) (unknown) Plt Count 306 (units ( unknown) date) unknown) (unknown) (no (unknown) (unknown) Plt Count (units (unkn own) date) unknown) (unknown) (no (unknown) (unknown) Potassium 4.1 (units ( unknown) date) unknown) (unknown) (no (unknown) (unknown) Potassium (units (unkn own) date) unknown) (unknown) (no (unknown) (unknown) Provider: (units (unkn own) date) Tyree Hickman MD unknown) (unknown) (no (unknown) (unknown) Proxy: Leno (units ( unknown) date) Duke, spouse unknown) (unknown) (no (unknown) (unknown) Pulse Oximetry 91 (units (unknown) date) unknown) (unknown) (no (unknown) (unknown) Pulse Oximetry 96 (units (unknown) date) 96 unknown) (unknown) (no (unknown) (unknown) Pulse Oximetry 96 (units (unknown) date) 98 unknown) (unknown) (no (unknown) (unknown) Pulse Oximetry 97 (units (unknown) date) 96 unknown) (unknown) (no (unknown) (unknown) Pulse Oximetry 98 (units (unknown) date) unknown) (unknown) (no (unknown) (unknown) Pulse Oximetry (units (unknown) date) unknown) (unknown) (no (unknown) (unknown) Pulse Rate 65 67 (units (unknown) date) unknown) (unknown) (no (unknown) (unknown) Pulse Rate 67 67 (units (unknown) date) unknown) (unknown) (no (unknown) (unknown) Pulse Rate 68 67 (units (unknown) date) unknown) (unknown) (no (unknown) (unknown) Pulse Rate 68 68 (units (unknown) date) unknown) (unknown) (no (unknown) (unknown) Pulse Rate 73 (units ( unknown) date) unknown) (unknown) (no (unknown) (unknown) Pulse Rate (units (unk nown) date) unknown) (unknown) (no (unknown) (unknown) RBC 3.40 L (units (unk nown) date) unknown) (unknown) (no (unknown) (unknown) RBC Morphology (units (unknown) date) Normal morphology unknown) (unknown) (no (unknown) (unknown) RBC Morphology (units (unknown) date) unknown) (unknown) (no (unknown) (unknown) RBC (units (unkno wn) date) unknown) (unknown) (no (unknown) (unknown) RDW 13.1 (units (unkno wn) date) unknown) (unknown) (no (unknown) (unknown) RDW (units (unkno wn) date) unknown) (unknown) (no (unknown) (unknown) Respiratory Rate 11 (unit s (unknown) date) L 12 unknown) (unknown) (no (unknown) (unknown) Respiratory Rate 16 (unit s (unknown) date) 19 unknown) (unknown) (no (unknown) (unknown) Respiratory Rate 18 (unit s (unknown) date) 18 unknown) (unknown) (no (unknown) (unknown) Respiratory Rate 24 (unit s (unknown) date) unknown) (unknown) (no (unknown) (unknown) Respiratory Rate 27 (unit s (unknown) date) H 15 unknown) (unknown) (no (unknown) (unknown) Respiratory Rate (units (unknown) date) unknown) (unknown) (no (unknown) (unknown) Result Diagrams: (units (unknown) date) unknown) (unknown) (no (unknown) (unknown) Review of Systems (units (unknown) date) unknown) (unknown) (no (unknown) (unknown) SARS-CoV-2 (PCR) (units (unknown) date) Negative unknown) (unknown) (no (unknown) (unknown) SARS-CoV-2 (PCR) (units (unknown) date) unknown) (unknown) (no (unknown) (unknown) Safety + (units (unkno wn) date) Behavioral: unknown) (unknown) (no (unknown) (unknown) Seg Neutrophils % (units (unknown) date) 68.0 unknown) (unknown) (no (unknown) (unknown) Seg Neutrophils % (units (unknown) date) unknown) (unknown) (no (unknown) (unknown) She did fall on her (unit s (unknown) date) left hip and could unknown) not ambulate after. She has had a poor (unknown) (no (unknown) (unknown) She states she has (units (unknown) date) had back pain after unknown) getting a compression fracture from (unknown) (no (unknown) (unknown) Signed (units (unkno wn) date) By:<Electronically unknown) signed by Tyree Hickman MD> (unknown) (no (unknown) (unknown) Smoking Status (units (unknown) date) Current every day unknown) smoker (unknown) (no (unknown) (unknown) Social history: 1.5 (unit s (unknown) date) ppd, EtOH variable, unknown) but sometimes significant, per patient (unknown) (no (unknown) (unknown) Sodium 122 L (units (u nknown) date) unknown) (unknown) (no (unknown) (unknown) Sodium (units (unkno wn) date) unknown) (unknown) (no (unknown) (unknown) Status post (units (un known) date) appendectomy unknown) (unknown) (no (unknown) (unknown) Status post breast (units (unknown) date) lumpectomy unknown) (unknown) (no (unknown) (unknown) Status post (units (un known) date) hysterectomy unknown) (unknown) (no (unknown) (unknown) Substance Use Type (units (unknown) date) does not use unknown) (unknown) (no (unknown) (unknown) Surgical History (units (unknown) date) (Reviewed 04/30/22 @ unknown) 05:46 by Tyree Hickman MD) (unknown) (no (unknown) (unknown) Temperature 97.2 F (units (unknown) date) L unknown) (unknown) (no (unknown) (unknown) Temperature 97.7 F (units (unknown) date) unknown) (unknown) (no (unknown) (unknown) Temperature (units (un known) date) unknown) (unknown) (no (unknown) (unknown) Time Patient Seen: (units (unknown) date) 05:00 unknown) (unknown) (no (unknown) (unknown) Time Spent With (units (unknown) date) Patient unknown) (unknown) (no (unknown) (unknown) Tobacco + Substance (unit s (unknown) date) use: unknown) (unknown) (no (unknown) (unknown) Total Bilirubin 0.4 (unit s (unknown) date) unknown) (unknown) (no (unknown) (unknown) Total Bilirubin (units (unknown) date) unknown) (unknown) (no (unknown) (unknown) Total Counted 100 (units (unknown) date) unknown) (unknown) (no (unknown) (unknown) Total Counted (units ( unknown) date) unknown) (unknown) (no (unknown) (unknown) Total Protein 6.0 L (unit s (unknown) date) unknown) (unknown) (no (unknown) (unknown) Total Protein (units ( unknown) date) unknown) (unknown) (no (unknown) (unknown) Vital Signs (units (un known) date) unknown) (unknown) (no (unknown) (unknown) WBC 11.8 H (units (unk nown) date) unknown) (unknown) (no (unknown) (unknown) WBC (units (unkno wn) date) unknown) (unknown) (no (unknown) (unknown) [Embedded Image Not (unit s (unknown) date) Available] unknown) (unknown) (no (unknown) (unknown) alcohol intake (units (unknown) date) frequency 3 or more unknown) drinks per day (unknown) (no (unknown) (unknown) appetite recently, (units (unknown) date) and has chronic unknown) diarrhea. (unknown) (no (unknown) (unknown) coughing a few weeks (unit s (unknown) date) ago. She was using a unknown) walker at home. She fell to the ground (unknown) (no (unknown) (unknown) intake and chronic (units (unknown) date) diarrhea unknown) (unknown) (no (unknown) (unknown) intertrochanteric (units (unknown) date) fracture and lateral unknown) obturator ring fracture. (unknown) (no (unknown) (unknown) medications (units (un known) date) unknown) (unknown) (no (unknown) (unknown) morphine AdvReac (units (unknown) date) Intermediate unknown) Hallucinati Verified 04/30/22 00:03 (unknown) (no (unknown) (unknown) ng (units (unkno wn) date) unknown) (unknown) (no (unknown) (unknown) no history of (units ( unknown) date) withdrawal unknown) (unknown) (no (unknown) (unknown) today, she is not (units (unknown) date) sure why, she thinks unknown) she tripped. She did not hit her head. (unknown) (no (unknown) (unknown) today; this time is (unit s (unknown) date) exclusive of unknown) procedural time. Result panel 11 (unknown) (no date) (unknown) (unknown) 0 /ul (unkn own) (unknown) (no date) (unknown) (unknown) 0 /ul (unkn own) (unknown) (no date) (unknown) (unknown) 0.4 % (unkn own) (unknown) (no date) (unknown) (unknown) 0.5 % (unkn own) (unknown) (no date) (unknown) (unknown) 1000 /ul (unkn own) (unknown) (no date) (unknown) (unknown) 103.8 fl (unkn own) (unknown) (no date) (unknown) (unknown) 11.3 % (unkn own) (unknown) (no date) (unknown) (unknown) 12.4 g/dl (unkn own) (unknown) (no date) (unknown) (unknown) 12.9 % (unkn own) (unknown) (no date) (unknown) (unknown) 1300 /ul (unkn own) (unknown) (no date) (unknown) (unknown) 14.5 % (unkn own) (unknown) (no date) (unknown) (unknown) 297 x10 3/ul (unkn own) (unknown) (no date) (unknown) (unknown) 3.45 x10 6/ul (unkn own) (unknown) (no date) (unknown) (unknown) 34.6 % (unkn own) (unknown) (no date) (unknown) (unknown) 35.8 % (unkn own) (unknown) (no date) (unknown) (unknown) 35.9 pg (unkn own) (unknown) (no date) (unknown) (unknown) 6600 /ul (unkn own) (unknown) (no date) (unknown) (unknown) 73.3 % (unkn own) (unknown) (no date) (unknown) (unknown) 9.0 x10 3/ul (unkn own) Result panel 12 (unknown) (no date) (unknown) (unknown) > 60 ml/min (unkn own) (unknown) (no date) (unknown) (unknown) > 60 ml/min (unkn own) (unknown) (no date) (unknown) (unknown) < 2 mg/dl (unkn own) (unknown) (no date) (unknown) (unknown) 0.37 mg/dl (unkn own) (unknown) (no date) (unknown) (unknown) 127 mmol/l (unkn own) (unknown) (no date) (unknown) (unknown) 27 mmol/l (unkn own) (unknown) (no date) (unknown) (unknown) 5.0 mmol/l (unkn own) (unknown) (no date) (unknown) (unknown) 5.4 (units unknown) (unknown) (unknown) (no date) (unknown) (unknown) 75 mg/dl (unkn own) (unknown) (no date) (unknown) (unknown) 75 mg/dl (unkn own) (unknown) (no date) (unknown) (unknown) 8.1 mg/dl (unkn own) (unknown) (no date) (unknown) (unknown) 94 mmol/l (unkn own) Result panel 13 (unknown) (no (unknown) (unknown) (no value) (units (unk nown) date) unknown) (unknown) (no (unknown) (unknown) (past 8 hours): (units (unknown) date) unknown) (unknown) (no (unknown) (unknown) [id number] (units (unkno wn) date) unknown) (unknown) (no (unknown) (unknown) 00:15 06:35 (units (un known) date) 06:35 unknown) (unknown) (no (unknown) (unknown) 07:25 04/30/22 (units (unknown) date) unknown) (unknown) (no (unknown) (unknown) 04/29/22 (units (unkno wn) date) 04/29/22 04/29/22 unknown) (unknown) (no (unknown) (unknown) 04/30/22 06:35 (units (unknown) date) unknown) (unknown) (no (unknown) (unknown) 04/30/22 (units (unkno wn) date) 04/30/22 04/30/22 unknown) (unknown) (no (unknown) (unknown) 04/30/22 (units (unkno wn) date) unknown) (unknown) (no (unknown) (unknown) 10:00 04/30/22 (units (unknown) date) unknown) (unknown) (no (unknown) (unknown) 12:00 (units (unkno wn) date) unknown) (unknown) (no (unknown) (unknown) 14:32 (units (unkno wn) date) unknown) (unknown) (no (unknown) (unknown) 23:50 23:50 (units (un known) date) 23:50 unknown) (unknown) (no (unknown) (unknown) ALT 15 (units (unkno wn) date) unknown) (unknown) (no (unknown) (unknown) ALT (units (unkno wn) date) unknown) (unknown) (no (unknown) (unknown) AST 29 (units (unkno wn) date) unknown) (unknown) (no (unknown) (unknown) AST (units (unkno wn) date) unknown) (unknown) (no (unknown) (unknown) Age/Sex: 61 / F (units (unknown) date) unknown) (unknown) (no (unknown) (unknown) Albumin 2.9 L (units ( unknown) date) unknown) (unknown) (no (unknown) (unknown) Albumin (units (unkno wn) date) unknown) (unknown) (no (unknown) (unknown) Albumin/Globulin (units (unknown) date) Ratio 0.9 L unknown) (unknown) (no (unknown) (unknown) Albumin/Globulin (units (unknown) date) Ratio unknown) (unknown) (no (unknown) (unknown) Alkaline (units (unkno wn) date) Phosphatase 96 unknown) (unknown) (no (unknown) (unknown) Alkaline (units (unkno wn) date) Phosphatase unknown) (unknown) (no (unknown) (unknown) Allergies (units (unkn own) date) unknown) (unknown) (no (unknown) (unknown) Allergy/AdvReac (units (unknown) date) Type Severity unknown) Reaction Status Date / Time (unknown) (no (unknown) (unknown) Assessment + (units (u nknown) date) Plan unknown) (unknown) (no (unknown) (unknown) BUN < 2 L (units (unkn own) date) unknown) (unknown) (no (unknown) (unknown) BUN/Creatinine (units (unknown) date) Ratio 5.4 L unknown) (unknown) (no (unknown) (unknown) BUN/Creatinine (units (unknown) date) Ratio 6.3 unknown) (unknown) (no (unknown) (unknown) Band Neutrophils (units (unknown) date) % 1.0 L unknown) (unknown) (no (unknown) (unknown) Band Neutrophils (units (unknown) date) % unknown) (unknown) (no (unknown) (unknown) Baso # (Auto) 0 (units (unknown) date) unknown) (unknown) (no (unknown) (unknown) Baso # (Auto) (units ( unknown) date) Not Reportable unknown) (unknown) (no (unknown) (unknown) Baso % (Auto) (units ( unknown) date) 0.5 unknown) (unknown) (no (unknown) (unknown) Baso % (Auto) (units ( unknown) date) Not Reportable unknown) (unknown) (no (unknown) (unknown) Been Physically (units (unknown) date) Hurt or No unknown) (unknown) (no (unknown) (unknown) Blood Pressure (units (unknown) date) 140/79 unknown) (unknown) (no (unknown) (unknown) Blood Pressure (units (unknown) date) 142/76 H 129/80 unknown) (unknown) (no (unknown) (unknown) Calcium 7.4 L (units ( unknown) date) unknown) (unknown) (no (unknown) (unknown) Calcium 8.1 L (units ( unknown) date) unknown) (unknown) (no (unknown) (unknown) Carbon Dioxide (units (unknown) date) 22 unknown) (unknown) (no (unknown) (unknown) Carbon Dioxide (units (unknown) date) 27 unknown) (unknown) (no (unknown) (unknown) Cardiovascular: (units (unknown) date) Extremities warm unknown) well perfused (unknown) (no (unknown) (unknown) Chief complaint: (units (unknown) date) GLF, left hip unknown) pain (unknown) (no (unknown) (unknown) Chloride 92 L (units ( unknown) date) unknown) (unknown) (no (unknown) (unknown) Chloride 94 L (units ( unknown) date) unknown) (unknown) (no (unknown) (unknown) Creatinine 0.32 (units (unknown) date) L unknown) (unknown) (no (unknown) (unknown) Creatinine 0.37 (units (unknown) date) L unknown) (unknown) (no (unknown) (unknown) Critical Care (units ( unknown) date) time: unknown) (unknown) (no (unknown) (unknown) : 1960 (units (unknown) date) Acct:[id number] unknown) (unknown) (no (unknown) (unknown) Date Patient (units (u nknown) date) Seen: 04/30/22 unknown) (unknown) (no (unknown) (unknown) Date of Service: (units (unknown) date) 04/30/22 unknown) (unknown) (no (unknown) (unknown) Deep Vein (units (unkn own) date) Thrombosis/Pulmon unknown) brijesh Embolism Present on Admission: No (unknown) (no (unknown) (unknown) Environment (units (un known) date) unknown) (unknown) (no (unknown) (unknown) Eos # (Auto) 0 (units (unknown) date) unknown) (unknown) (no (unknown) (unknown) Eos # (Auto) (units (u nknown) date) unknown) (unknown) (no (unknown) (unknown) Eos % (Auto) 0.4 (units (unknown) date) L unknown) (unknown) (no (unknown) (unknown) Eos % (Auto) Not (units (unknown) date) Reportable unknown) (unknown) (no (unknown) (unknown) Estimated GFR > (units (unknown) date) 60 unknown) (unknown) (no (unknown) (unknown) Ethyl Alcohol (units ( unknown) date) 180 H unknown) (unknown) (no (unknown) (unknown) Ethyl Alcohol (units ( unknown) date) unknown) (unknown) (no (unknown) (unknown) Exam Narrative: (units (unknown) date) unknown) (unknown) (no (unknown) (unknown) Exam (units (unkno wn) date) unknown) (unknown) (no (unknown) (unknown) Family + Social (units (unknown) date) History unknown) (unknown) (no (unknown) (unknown) Feels Safe in (units ( unknown) date) Current Yes unknown) (unknown) (no (unknown) (unknown) Globulin 3.1 (units (u nknown) date) unknown) (unknown) (no (unknown) (unknown) Globulin (units (unkno wn) date) unknown) (unknown) (no (unknown) (unknown) Glucose 75 L (units (u nknown) date) unknown) (unknown) (no (unknown) (unknown) Glucose 96 (units (unk nown) date) unknown) (unknown) (no (unknown) (unknown) HEENT head (units (unk nown) date) atraumatic, eyes unknown) anicteric (unknown) (no (unknown) (unknown) Hct 34.9 L (units (unk nown) date) unknown) (unknown) (no (unknown) (unknown) Hct 35.8 L (units (unk nown) date) unknown) (unknown) (no (unknown) (unknown) Hgb 11.9 L (units (unk nown) date) unknown) (unknown) (no (unknown) (unknown) Hgb 12.4 (units (unkno wn) date) unknown) (unknown) (no (unknown) (unknown) History + (units (unkn own) date) Physical Report unknown) (unknown) (no (unknown) (unknown) History of (units (unk nown) date) Present Illness unknown) (unknown) (no (unknown) (unknown) Home Medications (units (unknown) date) and Allergies unknown) (unknown) (no (unknown) (unknown) Home Medications (units (unknown) date) unknown) (unknown) (no (unknown) (unknown) I spent a total (units (unknown) date) of [] minutes of unknown) critical care time on this patient's care (unknown) (no (unknown) (unknown) [facility] (units (unknown) date) [address] [place] [address] unknown) [place] [address] (unknown) (no (unknown) (unknown) Laboratory (units (unk nown) date) Results - last unknown) hr (unknown) (no (unknown) (unknown) Labs (units (unkno wn) date) unknown) (unknown) (no (unknown) (unknown) Labs: (units (unkno wn) date) unknown) (unknown) (no (unknown) (unknown) Nichol is a (units (unkn own) date) 61-year-old unknown) female with past medical history of alcohol and tobacco (unknown) (no (unknown) (unknown) Lymph # (Auto) (units (unknown) date) 1300 unknown) (unknown) (no (unknown) (unknown) Lymph # (Auto) (units (unknown) date) Not Reportable unknown) (unknown) (no (unknown) (unknown) Lymph % (Auto) (units (unknown) date) 14.5 L unknown) (unknown) (no (unknown) (unknown) Lymph % (Auto) (units (unknown) date) Not Reportable unknown) (unknown) (no (unknown) (unknown) Lymphocytes % (units ( unknown) date) (Manual) 21.0 L unknown) (unknown) (no (unknown) (unknown) Lymphocytes % (units ( unknown) date) (Manual) unknown) (unknown) (no (unknown) (unknown) MCH 35.1 H (units (unk nown) date) unknown) (unknown) (no (unknown) (unknown) MCH 35.9 H (units (unk nown) date) unknown) (unknown) (no (unknown) (unknown) MCHC 34.2 (units (unkn own) date) unknown) (unknown) (no (unknown) (unknown) MCHC 34.6 (units (unkn own) date) unknown) (unknown) (no (unknown) (unknown) MCV 102.6 H (units (un known) date) unknown) (unknown) (no (unknown) (unknown) MCV 103.8 H (units (un known) date) unknown) (unknown) (no (unknown) (unknown) Medication (units (unk nown) date) Instructions unknown) Recorded Confirmed Type (unknown) (no (unknown) (unknown) Meds (units (unkno wn) date) unknown) (unknown) (no (unknown) (unknown) Metamyelocytes % (units (unknown) date) 1.0 H unknown) (unknown) (no (unknown) (unknown) Metamyelocytes % (units (unknown) date) unknown) (unknown) (no (unknown) (unknown) [place] # (Auto) (units ( unknown) date) 1000 H unknown) (unknown) (no (unknown) (unknown) [place] # (Auto) (units ( unknown) date) Not Reportable unknown) (unknown) (no (unknown) (unknown) [place] % (Auto) (units ( unknown) date) 11.3 unknown) (unknown) (no (unknown) (unknown) [place] % (Auto) (units ( unknown) date) Not Reportable unknown) (unknown) (no (unknown) (unknown) Monocytes % (units (un known) date) (Manual) 9.0 unknown) (unknown) (no (unknown) (unknown) Monocytes % (units (un known) date) (Manual) unknown) (unknown) (no (unknown) (unknown) Musculoskeletal: (units (unknown) date) He unknown) (unknown) (no (unknown) (unknown) Narrative (units (unkn own) date) unknown) (unknown) (no (unknown) (unknown) Narrative: (units (unk nown) date) unknown) (unknown) (no (unknown) (unknown) Neurologic: No (units (unknown) date) acute deficits unknown) (unknown) (no (unknown) (unknown) Neut # (Auto) (units ( unknown) date) 6600 unknown) (unknown) (no (unknown) (unknown) Neut # (Auto) (units ( unknown) date) unknown) (unknown) (no (unknown) (unknown) Neut % (Auto) (units ( unknown) date) 73.3 unknown) (unknown) (no (unknown) (unknown) Neut % (Auto) (units ( unknown) date) Not Reportable unknown) (unknown) (no (unknown) (unknown) Neutrophils # (units ( unknown) date) (Manual) 8142 H unknown) (unknown) (no (unknown) (unknown) Neutrophils # (units ( unknown) date) (Manual) unknown) (unknown) (no (unknown) (unknown) No Known Home (units ( unknown) date) Medications unknown) 08/10/19 04/30/22 History (unknown) (no (unknown) (unknown) Objective (units (unkn own) date) unknown) (unknown) (no (unknown) (unknown) Oxygen Delivery (units (unknown) date) Method Room Air unknown) (unknown) (no (unknown) (unknown) Oxygen Flow Rate (units (unknown) date) 0 0 0 unknown) (unknown) (no (unknown) (unknown) Oxygen Flow Rate (units (unknown) date) 0 unknown) (unknown) (no (unknown) (unknown) Oxygen Flow Rate (units (unknown) date) unknown) (unknown) (no (unknown) (unknown) Patient History (units (unknown) date) unknown) (unknown) (no (unknown) (unknown) Patient: (units (unkno wn) date) Nichol Meng R unknown) MR#: [id number] (unknown) (no (unknown) (unknown) Penicillins (units (un known) date) [PENICILLINS] unknown) AdvReac Intermediate rash Verified 04/30/22 14:30 (unknown) (no (unknown) (unknown) Plt Count 297 (units ( unknown) date) unknown) (unknown) (no (unknown) (unknown) Plt Count 306 (units ( unknown) date) unknown) (unknown) (no (unknown) (unknown) Potassium 4.1 (units ( unknown) date) unknown) (unknown) (no (unknown) (unknown) Potassium 5.0 (units ( unknown) date) unknown) (unknown) (no (unknown) (unknown) Prior Living (units (u nknown) date) Arrangements unknown) House (unknown) (no (unknown) (unknown) Provider: (units (unkn own) date) Caesar Guerrier MD unknown) (unknown) (no (unknown) (unknown) Psychiatric: (units (u nknown) date) Currently anxious unknown) about her 's condition, with recently (unknown) (no (unknown) (unknown) Pulse Oximetry (units (unknown) date) 92 unknown) (unknown) (no (unknown) (unknown) Pulse Oximetry (units (unknown) date) 93 93 92 unknown) (unknown) (no (unknown) (unknown) Pulse Rate 82 82 (units (unknown) date) unknown) (unknown) (no (unknown) (unknown) Pulse Rate 86 (units ( unknown) date) unknown) (unknown) (no (unknown) (unknown) Quality (units (unkno wn) date) unknown) (unknown) (no (unknown) (unknown) RBC 3.40 L (units (unk nown) date) unknown) (unknown) (no (unknown) (unknown) RBC 3.45 L (units (unk nown) date) unknown) (unknown) (no (unknown) (unknown) RBC Morphology (units (unknown) date) Normal morphology unknown) (unknown) (no (unknown) (unknown) RBC Morphology (units (unknown) date) unknown) (unknown) (no (unknown) (unknown) RDW 12.9 (units (unkno wn) date) unknown) (unknown) (no (unknown) (unknown) RDW 13.1 (units (unkno wn) date) unknown) (unknown) (no (unknown) (unknown) ROS: Yes All (units (u nknown) date) systems reviewed unknown) with the patient and are negative except as (unknown) (no (unknown) (unknown) Respiratory Rate (units (unknown) date) 12 unknown) (unknown) (no (unknown) (unknown) Respiratory Rate (units (unknown) date) 16 18 unknown) (unknown) (no (unknown) (unknown) Respiratory: (units (u nknown) date) Breathing unknown) comfortably on room air (unknown) (no (unknown) (unknown) Result Diagrams: (units (unknown) date) unknown) (unknown) (no (unknown) (unknown) Review of (units (unkn own) date) Systems unknown) (unknown) (no (unknown) (unknown) SARS-CoV-2 (PCR) (units (unknown) date) Negative unknown) (unknown) (no (unknown) (unknown) SARS-CoV-2 (PCR) (units (unknown) date) unknown) (unknown) (no (unknown) (unknown) Safety + (units (unkno wn) date) Behavioral: unknown) (unknown) (no (unknown) (unknown) Seg Neutrophils (units (unknown) date) % 68.0 unknown) (unknown) (no (unknown) (unknown) Seg Neutrophils (units (unknown) date) % unknown) (unknown) (no (unknown) (unknown) Signed By: (units (unk nown) date) unknown) (unknown) (no (unknown) (unknown) Smoking Status (units (unknown) date) Current every day unknown) smoker (unknown) (no (unknown) (unknown) Smoking packs (units ( unknown) date) per day 1.5 unknown) (unknown) (no (unknown) (unknown) Social History: (units (unknown) date) unknown) (unknown) (no (unknown) (unknown) Sodium 122 L (units (u nknown) date) unknown) (unknown) (no (unknown) (unknown) Sodium 127 L (units (u nknown) date) unknown) (unknown) (no (unknown) (unknown) Status post (units (un known) date) appendectomy unknown) (unknown) (no (unknown) (unknown) Status post (units (un known) date) breast lumpectomy unknown) (unknown) (no (unknown) (unknown) Status post (units (un known) date) hysterectomy unknown) (unknown) (no (unknown) (unknown) Substance Use (units ( unknown) date) Type does not use unknown) (unknown) (no (unknown) (unknown) Surgical History (units (unknown) date) (Reviewed unknown) 04/30/22 @ 05:46 by Tyree Hickman MD) (unknown) (no (unknown) (unknown) Temperature 97.2 (units (unknown) date) F L 96.7 F L unknown) (unknown) (no (unknown) (unknown) Temperature 99.2 (units (unknown) date) F unknown) (unknown) (no (unknown) (unknown) Threatened By a (units (unknown) date) Person unknown) (unknown) (no (unknown) (unknown) Time Patient (units (u nknown) date) Seen: 14:35 unknown) (unknown) (no (unknown) (unknown) Time Spent With (units (unknown) date) Patient unknown) (unknown) (no (unknown) (unknown) Tobacco + (units (unkn own) date) Substance use: unknown) (unknown) (no (unknown) (unknown) Tobacco type (units (u nknown) date) cigarettes unknown) (unknown) (no (unknown) (unknown) Total Bilirubin (units (unknown) date) 0.4 unknown) (unknown) (no (unknown) (unknown) Total Bilirubin (units (unknown) date) unknown) (unknown) (no (unknown) (unknown) Total Counted (units ( unknown) date) 100 unknown) (unknown) (no (unknown) (unknown) Total Counted (units ( unknown) date) unknown) (unknown) (no (unknown) (unknown) Total Protein (units ( unknown) date) 6.0 L unknown) (unknown) (no (unknown) (unknown) Total Protein (units ( unknown) date) unknown) (unknown) (no (unknown) (unknown) VTE (units (unkno wn) date) unknown) (unknown) (no (unknown) (unknown) Vital Signs (units (un known) date) unknown) (unknown) (no (unknown) (unknown) WBC 11.8 H (units (unk nown) date) unknown) (unknown) (no (unknown) (unknown) WBC 9.0 (units (unkno wn) date) unknown) (unknown) (no (unknown) (unknown) [Embedded Image (units (unknown) date) Not Available] unknown) (unknown) (no (unknown) (unknown) alcohol intake (units (unknown) date) current unknown) (unknown) (no (unknown) (unknown) alcohol intake (units (unknown) date) frequency 3 or unknown) more drinks per day (unknown) (no (unknown) (unknown) describing pain (units (unknown) date) in her left hip. unknown) Unable to bear weight. Denies any distal (unknown) (no (unknown) (unknown) diagnosed with (units (unknown) date) stage IV cancer unknown) (unknown) (no (unknown) (unknown) household (units (unkn own) date) members spouse unknown) (unknown) (no (unknown) (unknown) medical history (units (unknown) date) of a compression unknown) fracture. She presented to the ED last night (unknown) (no (unknown) (unknown) morphine AdvReac (units (unknown) date) Intermediate unknown) Hallucinati Verified 04/30/22 14:30 (unknown) (no (unknown) (unknown) ng (units (unkno wn) date) unknown) (unknown) (no (unknown) (unknown) numbness or (units (un known) date) tingling. No unknown) other complaints at this time. (unknown) (no (unknown) (unknown) otherwise (units (unkn own) date) documented unknown) (unknown) (no (unknown) (unknown) today; this time (units (unknown) date) is exclusive of unknown) procedural time. (unknown) (no (unknown) (unknown) use who presents (units (unknown) date) after sustaining unknown) a ground level fall. She does have a past (unknown) (no (unknown) (unknown) with a high (units (un known) date) alcohol content. unknown) She is sober alert and oriented now. Currently Result panel 14 (unknown) (no (unknown) (unknown) (no value) (units (unk nown) date) unknown) (unknown) (no (unknown) (unknown) (past 8 hours): (units (unknown) date) unknown) (unknown) (no (unknown) (unknown) [id number] (units (unkno wn) date) unknown) (unknown) (no (unknown) (unknown) 00:15 06:35 06:35 (units (unknown) date) unknown) (unknown) (no (unknown) (unknown) 07:25 04/30/22 (units (unknown) date) unknown) (unknown) (no (unknown) (unknown) 04/29/22 04/29/22 (units (unknown) date) 04/29/22 unknown) (unknown) (no (unknown) (unknown) 04/30/22 06:35 (units (unknown) date) unknown) (unknown) (no (unknown) (unknown) 04/30/22 04/30/22 (units (unknown) date) 04/30/22 unknown) (unknown) (no (unknown) (unknown) 04/30/22 1443 (units ( unknown) date) unknown) (unknown) (no (unknown) (unknown) 04/30/22 (units (unkno wn) date) unknown) (unknown) (no (unknown) (unknown) 10:00 04/30/22 (units (unknown) date) unknown) (unknown) (no (unknown) (unknown) 12:00 (units (unkno wn) date) unknown) (unknown) (no (unknown) (unknown) 14:32 (units (unkno wn) date) unknown) (unknown) (no (unknown) (unknown) 23:50 23:50 23:50 (units (unknown) date) unknown) (unknown) (no (unknown) (unknown) ALT 15 (units (unkno wn) date) unknown) (unknown) (no (unknown) (unknown) ALT (units (unkno wn) date) unknown) (unknown) (no (unknown) (unknown) AST 29 (units (unkno wn) date) unknown) (unknown) (no (unknown) (unknown) AST (units (unkno wn) date) unknown) (unknown) (no (unknown) (unknown) Age/Sex: 61 / F (units (unknown) date) unknown) (unknown) (no (unknown) (unknown) Albumin 2.9 L (units ( unknown) date) unknown) (unknown) (no (unknown) (unknown) Albumin (units (unkno wn) date) unknown) (unknown) (no (unknown) (unknown) Albumin/Globulin (units (unknown) date) Ratio 0.9 L unknown) (unknown) (no (unknown) (unknown) Albumin/Globulin (units (unknown) date) Ratio unknown) (unknown) (no (unknown) (unknown) Alkaline (units (unkno wn) date) Phosphatase 96 unknown) (unknown) (no (unknown) (unknown) Alkaline (units (unkno wn) date) Phosphatase unknown) (unknown) (no (unknown) (unknown) Allergies (units (unkn own) date) unknown) (unknown) (no (unknown) (unknown) Allergy/AdvReac (units (unknown) date) Type Severity unknown) Reaction Status Date / Time (unknown) (no (unknown) (unknown) Assessment + Plan (units (unknown) date) narrative: unknown) (unknown) (no (unknown) (unknown) Assessment + Plan (units (unknown) date) unknown) (unknown) (no (unknown) (unknown) Assessment: Left (units (unknown) date) intertrochanteric unknown) femur fracture with osteoporosis which is (unknown) (no (unknown) (unknown) BUN < 2 L (units (unkn own) date) unknown) (unknown) (no (unknown) (unknown) BUN/Creatinine (units (unknown) date) Ratio 5.4 L unknown) (unknown) (no (unknown) (unknown) BUN/Creatinine (units (unknown) date) Ratio 6.3 unknown) (unknown) (no (unknown) (unknown) Band Neutrophils % (units (unknown) date) 1.0 L unknown) (unknown) (no (unknown) (unknown) Band Neutrophils % (units (unknown) date) unknown) (unknown) (no (unknown) (unknown) Baso # (Auto) 0 (units (unknown) date) unknown) (unknown) (no (unknown) (unknown) Baso # (Auto) Not (units (unknown) date) Reportable unknown) (unknown) (no (unknown) (unknown) Baso % (Auto) 0.5 (units (unknown) date) unknown) (unknown) (no (unknown) (unknown) Baso % (Auto) Not (units (unknown) date) Reportable unknown) (unknown) (no (unknown) (unknown) Been Physically (units (unknown) date) Hurt or No unknown) (unknown) (no (unknown) (unknown) Blood Pressure (units (unknown) date) 140/79 unknown) (unknown) (no (unknown) (unknown) Blood Pressure (units (unknown) date) 142/76 H 129/80 unknown) (unknown) (no (unknown) (unknown) Calcium 7.4 L (units ( unknown) date) unknown) (unknown) (no (unknown) (unknown) Calcium 8.1 L (units ( unknown) date) unknown) (unknown) (no (unknown) (unknown) Carbon Dioxide 22 (units (unknown) date) unknown) (unknown) (no (unknown) (unknown) Carbon Dioxide 27 (units (unknown) date) unknown) (unknown) (no (unknown) (unknown) Cardiovascular: (units (unknown) date) Extremities warm unknown) well perfused (unknown) (no (unknown) (unknown) Chief complaint: (units (unknown) date) GLF, left hip pain unknown) (unknown) (no (unknown) (unknown) Chloride 92 L (units ( unknown) date) unknown) (unknown) (no (unknown) (unknown) Chloride 94 L (units ( unknown) date) unknown) (unknown) (no (unknown) (unknown) Creatinine 0.32 L (units (unknown) date) unknown) (unknown) (no (unknown) (unknown) Creatinine 0.37 L (units (unknown) date) unknown) (unknown) (no (unknown) (unknown) Critical Care time: (unit s (unknown) date) unknown) (unknown) (no (unknown) (unknown) : 1960 (units (unknown) date) Acct:[id number] unknown) (unknown) (no (unknown) (unknown) Date Patient Seen: (units (unknown) date) 04/30/22 unknown) (unknown) (no (unknown) (unknown) Date of Service: (units (unknown) date) 04/30/22 unknown) (unknown) (no (unknown) (unknown) Deep Vein (units (unkn own) date) Thrombosis/Pulmonary unknown) Embolism Present on Admission: No (unknown) (no (unknown) (unknown) Environment (units (un known) date) unknown) (unknown) (no (unknown) (unknown) Eos # (Auto) 0 (units (unknown) date) unknown) (unknown) (no (unknown) (unknown) Eos # (Auto) (units (u nknown) date) unknown) (unknown) (no (unknown) (unknown) Eos % (Auto) 0.4 L (units (unknown) date) unknown) (unknown) (no (unknown) (unknown) Eos % (Auto) Not (units (unknown) date) Reportable unknown) (unknown) (no (unknown) (unknown) Estimated GFR > 60 (units (unknown) date) unknown) (unknown) (no (unknown) (unknown) Ethyl Alcohol 180 H (unit s (unknown) date) unknown) (unknown) (no (unknown) (unknown) Ethyl Alcohol (units ( unknown) date) unknown) (unknown) (no (unknown) (unknown) Exam Narrative: (units (unknown) date) unknown) (unknown) (no (unknown) (unknown) Exam (units (unkno wn) date) unknown) (unknown) (no (unknown) (unknown) Family + Social (units (unknown) date) History unknown) (unknown) (no (unknown) (unknown) Feels Safe in (units ( unknown) date) Current Yes unknown) (unknown) (no (unknown) (unknown) Globulin 3.1 (units (u nknown) date) unknown) (unknown) (no (unknown) (unknown) Globulin (units (unkno wn) date) unknown) (unknown) (no (unknown) (unknown) Glucose 75 L (units (u nknown) date) unknown) (unknown) (no (unknown) (unknown) Glucose 96 (units (unk nown) date) unknown) (unknown) (no (unknown) (unknown) HEENT head (units (unk nown) date) atraumatic, eyes unknown) anicteric (unknown) (no (unknown) (unknown) Hct 34.9 L (units (unk nown) date) unknown) (unknown) (no (unknown) (unknown) Hct 35.8 L (units (unk nown) date) unknown) (unknown) (no (unknown) (unknown) Hgb 11.9 L (units (unk nown) date) unknown) (unknown) (no (unknown) (unknown) Hgb 12.4 (units (unkno wn) date) unknown) (unknown) (no (unknown) (unknown) History + Physical (units (unknown) date) Report unknown) (unknown) (no (unknown) (unknown) History of Present (units (unknown) date) Illness unknown) (unknown) (no (unknown) (unknown) Home Medications (units (unknown) date) and Allergies unknown) (unknown) (no (unknown) (unknown) Home Medications (units (unknown) date) unknown) (unknown) (no (unknown) (unknown) I spent a total of (units (unknown) date) [] minutes of unknown) critical care time on this patient's care (unknown) (no (unknown) (unknown) [facility] (units (unknown) date) [address] unknown) [place] [address] (unknown) (no (unknown) (unknown) Laboratory Results (units (unknown) date) - last 24 hr unknown) (unknown) (no (unknown) (unknown) Labs (units (unkno wn) date) unknown) (unknown) (no (unknown) (unknown) Labs: (units (unkno wn) date) unknown) (unknown) (no (unknown) (unknown) Nichol is a (units (unkn own) date) 61-year-old female unknown) with past medical history of alcohol and tobacco (unknown) (no (unknown) (unknown) Lymph # (Auto) 1300 (unit s (unknown) date) unknown) (unknown) (no (unknown) (unknown) Lymph # (Auto) Not (units (unknown) date) Reportable unknown) (unknown) (no (unknown) (unknown) Lymph % (Auto) 14.5 (unit s (unknown) date) L unknown) (unknown) (no (unknown) (unknown) Lymph % (Auto) Not (units (unknown) date) Reportable unknown) (unknown) (no (unknown) (unknown) Lymphocytes % (units ( unknown) date) (Manual) 21.0 L unknown) (unknown) (no (unknown) (unknown) Lymphocytes % (units ( unknown) date) (Manual) unknown) (unknown) (no (unknown) (unknown) MCH 35.1 H (units (unk nown) date) unknown) (unknown) (no (unknown) (unknown) MCH 35.9 H (units (unk nown) date) unknown) (unknown) (no (unknown) (unknown) MCHC 34.2 (units (unkn own) date) unknown) (unknown) (no (unknown) (unknown) MCHC 34.6 (units (unkn own) date) unknown) (unknown) (no (unknown) (unknown) MCV 102.6 H (units (un known) date) unknown) (unknown) (no (unknown) (unknown) MCV 103.8 H (units (un known) date) unknown) (unknown) (no (unknown) (unknown) Medication (units (unk nown) date) Instructions unknown) Recorded Confirmed Type (unknown) (no (unknown) (unknown) Meds (units (unkno wn) date) unknown) (unknown) (no (unknown) (unknown) Metamyelocytes % (units (unknown) date) 1.0 H unknown) (unknown) (no (unknown) (unknown) Metamyelocytes % (units (unknown) date) unknown) (unknown) (no (unknown) (unknown) [place] # (Auto) 1000 (units (unknown) date) H unknown) (unknown) (no (unknown) (unknown) [place] # (Auto) Not (units (unknown) date) Reportable unknown) (unknown) (no (unknown) (unknown) [place] % (Auto) 11.3 (units (unknown) date) unknown) (unknown) (no (unknown) (unknown) [place] % (Auto) Not (units (unknown) date) Reportable unknown) (unknown) (no (unknown) (unknown) Monocytes % (units (un known) date) (Manual) 9.0 unknown) (unknown) (no (unknown) (unknown) Monocytes % (units (un known) date) (Manual) unknown) (unknown) (no (unknown) (unknown) Musculoskeletal: (units (unknown) date) Exam of the left unknown) lower extremity demonstrates held at slight (unknown) (no (unknown) (unknown) Narrative (units (unkn own) date) unknown) (unknown) (no (unknown) (unknown) Narrative: (units (unk nown) date) unknown) (unknown) (no (unknown) (unknown) Neurologic: No (units (unknown) date) acute deficits unknown) (unknown) (no (unknown) (unknown) Neut # (Auto) 6600 (units (unknown) date) unknown) (unknown) (no (unknown) (unknown) Neut # (Auto) (units ( unknown) date) unknown) (unknown) (no (unknown) (unknown) Neut % (Auto) 73.3 (units (unknown) date) unknown) (unknown) (no (unknown) (unknown) Neut % (Auto) Not (units (unknown) date) Reportable unknown) (unknown) (no (unknown) (unknown) Neutrophils # (units ( unknown) date) (Manual) 8142 H unknown) (unknown) (no (unknown) (unknown) Neutrophils # (units ( unknown) date) (Manual) unknown) (unknown) (no (unknown) (unknown) No Known Home (units ( unknown) date) Medications 08/10/19 unknown) 04/30/22 History (unknown) (no (unknown) (unknown) No guarantees were (units (unknown) date) made regarding unknown) outcomes. She expressed understanding and (unknown) (no (unknown) (unknown) Objective (units (unkn own) date) unknown) (unknown) (no (unknown) (unknown) Oxygen Delivery (units (unknown) date) Method Room Air unknown) (unknown) (no (unknown) (unknown) Oxygen Flow Rate 0 (units (unknown) date) 0 0 unknown) (unknown) (no (unknown) (unknown) Oxygen Flow Rate 0 (units (unknown) date) unknown) (unknown) (no (unknown) (unknown) Oxygen Flow Rate (units (unknown) date) unknown) (unknown) (no (unknown) (unknown) Patient History (units (unknown) date) unknown) (unknown) (no (unknown) (unknown) Patient: (units (unkno wn) date) Nichol Meng R unknown) MR#: [id number] (unknown) (no (unknown) (unknown) Penicillins (units (un known) date) [PENICILLINS] unknown) AdvReac Intermediate rash Verified 04/30/22 14:30 (unknown) (no (unknown) (unknown) Plan: We discussed (units (unknown) date) operative treatment unknown) of her left intertrochanteric femur (unknown) (no (unknown) (unknown) Plt Count 297 (units ( unknown) date) unknown) (unknown) (no (unknown) (unknown) Plt Count 306 (units ( unknown) date) unknown) (unknown) (no (unknown) (unknown) Potassium 4.1 (units ( unknown) date) unknown) (unknown) (no (unknown) (unknown) Potassium 5.0 (units ( unknown) date) unknown) (unknown) (no (unknown) (unknown) Prior Living (units (u nknown) date) Arrangements House unknown) (unknown) (no (unknown) (unknown) Provider: (units (unkn own) date) Caesar Guerrier MD unknown) (unknown) (no (unknown) (unknown) Psychiatric: (units (u nknown) date) Currently anxious unknown) about her 's condition, with recently (unknown) (no (unknown) (unknown) Pulse Oximetry 92 (units (unknown) date) unknown) (unknown) (no (unknown) (unknown) Pulse Oximetry 93 (units (unknown) date) 93 92 unknown) (unknown) (no (unknown) (unknown) Pulse Rate 82 82 (units (unknown) date) unknown) (unknown) (no (unknown) (unknown) Pulse Rate 86 (units ( unknown) date) unknown) (unknown) (no (unknown) (unknown) Quality (units (unkno wn) date) unknown) (unknown) (no (unknown) (unknown) RBC 3.40 L (units (unk nown) date) unknown) (unknown) (no (unknown) (unknown) RBC 3.45 L (units (unk nown) date) unknown) (unknown) (no (unknown) (unknown) RBC Morphology (units (unknown) date) Normal morphology unknown) (unknown) (no (unknown) (unknown) RBC Morphology (units (unknown) date) unknown) (unknown) (no (unknown) (unknown) RDW 12.9 (units (unkno wn) date) unknown) (unknown) (no (unknown) (unknown) RDW 13.1 (units (unkno wn) date) unknown) (unknown) (no (unknown) (unknown) ROS: Yes All (units (u nknown) date) systems reviewed unknown) with the patient and are negative except as (unknown) (no (unknown) (unknown) Respiratory Rate 12 (unit s (unknown) date) unknown) (unknown) (no (unknown) (unknown) Respiratory Rate 16 (unit s (unknown) date) 18 unknown) (unknown) (no (unknown) (unknown) Respiratory: (units (u nknown) date) Breathing unknown) comfortably on room air (unknown) (no (unknown) (unknown) Result Diagrams: (units (unknown) date) unknown) (unknown) (no (unknown) (unknown) Review of Systems (units (unknown) date) unknown) (unknown) (no (unknown) (unknown) SARS-CoV-2 (PCR) (units (unknown) date) Negative unknown) (unknown) (no (unknown) (unknown) SARS-CoV-2 (PCR) (units (unknown) date) unknown) (unknown) (no (unknown) (unknown) Safety + (units (unkno wn) date) Behavioral: unknown) (unknown) (no (unknown) (unknown) Seg Neutrophils % (units (unknown) date) 68.0 unknown) (unknown) (no (unknown) (unknown) Seg Neutrophils % (units (unknown) date) unknown) (unknown) (no (unknown) (unknown) Signed (units (unkno wn) date) By:<Electronically unknown) signed by Caesar Guerrier MD> (unknown) (no (unknown) (unknown) Smoking Status (units (unknown) date) Current every day unknown) smoker (unknown) (no (unknown) (unknown) Smoking packs per (units (unknown) date) day 1.5 unknown) (unknown) (no (unknown) (unknown) Social History: (units (unknown) date) unknown) (unknown) (no (unknown) (unknown) Sodium 122 L (units (u nknown) date) unknown) (unknown) (no (unknown) (unknown) Sodium 127 L (units (u nknown) date) unknown) (unknown) (no (unknown) (unknown) Status post (units (un known) date) appendectomy unknown) (unknown) (no (unknown) (unknown) Status post breast (units (unknown) date) lumpectomy unknown) (unknown) (no (unknown) (unknown) Status post (units (un known) date) hysterectomy unknown) (unknown) (no (unknown) (unknown) Substance Use Type (units (unknown) date) does not use unknown) (unknown) (no (unknown) (unknown) Surgical History (units (unknown) date) (Reviewed 04/30/22 @ unknown) 05:46 by Tyree Hickman MD) (unknown) (no (unknown) (unknown) Temperature 97.2 F (units (unknown) date) L 96.7 F L unknown) (unknown) (no (unknown) (unknown) Temperature 99.2 F (units (unknown) date) unknown) (unknown) (no (unknown) (unknown) Threatened By a (units (unknown) date) Person unknown) (unknown) (no (unknown) (unknown) Time Patient Seen: (units (unknown) date) 14:35 unknown) (unknown) (no (unknown) (unknown) Time Spent With (units (unknown) date) Patient unknown) (unknown) (no (unknown) (unknown) Tobacco + Substance (unit s (unknown) date) use: unknown) (unknown) (no (unknown) (unknown) Tobacco type (units (u nknown) date) cigarettes unknown) (unknown) (no (unknown) (unknown) Total Bilirubin 0.4 (unit s (unknown) date) unknown) (unknown) (no (unknown) (unknown) Total Bilirubin (units (unknown) date) unknown) (unknown) (no (unknown) (unknown) Total Counted 100 (units (unknown) date) unknown) (unknown) (no (unknown) (unknown) Total Counted (units ( unknown) date) unknown) (unknown) (no (unknown) (unknown) Total Protein 6.0 L (unit s (unknown) date) unknown) (unknown) (no (unknown) (unknown) Total Protein (units ( unknown) date) unknown) (unknown) (no (unknown) (unknown) VTE (units (unkno wn) date) unknown) (unknown) (no (unknown) (unknown) Vital Signs (units (un known) date) unknown) (unknown) (no (unknown) (unknown) WBC 11.8 H (units (unk nown) date) unknown) (unknown) (no (unknown) (unknown) WBC 9.0 (units (unkno wn) date) unknown) (unknown) (no (unknown) (unknown) [Embedded Image Not (unit s (unknown) date) Available] unknown) (unknown) (no (unknown) (unknown) alcohol intake (units (unknown) date) current unknown) (unknown) (no (unknown) (unknown) alcohol intake (units (unknown) date) frequency 3 or more unknown) drinks per day (unknown) (no (unknown) (unknown) and tibial nerve (units (unknown) date) distributions. 2+ unknown) dorsalis pedis pulse brisk capillary refill (unknown) (no (unknown) (unknown) describing pain in (units (unknown) date) her left hip. Unable unknown) to bear weight. Denies any distal (unknown) (no (unknown) (unknown) diagnosed with (units (unknown) date) stage IV cancer unknown) (unknown) (no (unknown) (unknown) external rotation. (units (unknown) date) I did not range the unknown) extremity due to known injury. Pain to (unknown) (no (unknown) (unknown) fairly severe (units ( unknown) date) unknown) (unknown) (no (unknown) (unknown) fracture with a (units (unknown) date) cephalomedullary unknown) nail. The risks and benefits of the procedure (unknown) (no (unknown) (unknown) household members (units (unknown) date) spouse unknown) (unknown) (no (unknown) (unknown) intact to light (units (unknown) date) touch in sural, unknown) saphenous, superficial peroneal, deep peroneal (unknown) (no (unknown) (unknown) less than 2 (units (un known) date) seconds. unknown) (unknown) (no (unknown) (unknown) medical history of (units (unknown) date) a compression unknown) fracture. She presented to the ED last night (unknown) (no (unknown) (unknown) morphine AdvReac (units (unknown) date) Intermediate unknown) Hallucinati Verified 04/30/22 14:30 (unknown) (no (unknown) (unknown) ng (units (unkno wn) date) unknown) (unknown) (no (unknown) (unknown) numbness or (units (un known) date) tingling. No other unknown) complaints at this time. (unknown) (no (unknown) (unknown) otherwise (units (unkn own) date) documented unknown) (unknown) (no (unknown) (unknown) palpation (units (unkn own) date) proximally. Distally unknown) she is able to wiggle her toes. Sensation (unknown) (no (unknown) (unknown) structures, (units (un known) date) infection and unknown) failure of the implant and necessity of reoperation. (unknown) (no (unknown) (unknown) today; this time is (unit s (unknown) date) exclusive of unknown) procedural time. (unknown) (no (unknown) (unknown) use who presents (units (unknown) date) after sustaining a unknown) ground level fall. She does have a past (unknown) (no (unknown) (unknown) were again discussed (unit s (unknown) date) with her including unknown) the risk of bleeding, damage to internal (unknown) (no (unknown) (unknown) wished to go forth (units (unknown) date) with the procedure. unknown) (unknown) (no (unknown) (unknown) with a high alcohol (unit s (unknown) date) content. She is unknown) sober alert and oriented now. Currently Result panel 15 (unknown) (no (unknown) (unknown) (no value) (units (unk nown) date) unknown) (unknown) (no (unknown) (unknown) [id number] (units (unkno wn) date) unknown) (unknown) (no (unknown) (unknown) A C-arm was then (units (unknown) date) brought into the OR unknown) and positioned perpendicularly to allow (unknown) (no (unknown) (unknown) A small incision (units (unknown) date) was made proximal to unknown) the greater trochanter through the fascia (unknown) (no (unknown) (unknown) Age/Sex: 61 / F (units (unknown) date) unknown) (unknown) (no (unknown) (unknown) Anesthesia Type: (units (unknown) date) General unknown) (unknown) (no (unknown) (unknown) Click Yes if (units (u nknown) date) Unassisted: Yes unknown) (unknown) (no (unknown) (unknown) Complications: none (unit s (unknown) date) unknown) (unknown) (no (unknown) (unknown) Condition: stable (units (unknown) date) unknown) (unknown) (no (unknown) (unknown) : 1960 (units (unknown) date) Acct:[id number] unknown) (unknown) (no (unknown) (unknown) Date of Service: (units (unknown) date) 04/30/22 unknown) (unknown) (no (unknown) (unknown) Details of (units (unk nown) date) operation: The unknown) patient's identity was verified. The left hip was (unknown) (no (unknown) (unknown) Disposition: PACU (units (unknown) date) unknown) (unknown) (no (unknown) (unknown) Disposition: The (units (unknown) date) patient was taken to unknown) the recovery room in stable condition (unknown) (no (unknown) (unknown) Estimated Blood (units (unknown) date) Loss (mL): 20 unknown) (unknown) (no (unknown) (unknown) Findings: (units (unkn own) date) unknown) (unknown) (no (unknown) (unknown) [facility] with x-rays (unit s (unknown) date) on arrival unknown) (unknown) (no (unknown) (unknown) Indications: This (units (unknown) date) is a 61 year old unknown) female with the above diagnosis. We (unknown) (no (unknown) (unknown) Indications: (units (u nknown) date) unknown) (unknown) (no (unknown) (unknown) [facility] (units (unknown) date) [address] [place] [address] Street unknown) [place] [address] (unknown) (no (unknown) (unknown) Left hip (units (unkno wn) date) cephalomedullary unknown) nail (unknown) (no (unknown) (unknown) Operative Note (units (unknown) date) unknown) (unknown) (no (unknown) (unknown) Operative Notes (units (unknown) date) unknown) (unknown) (no (unknown) (unknown) Operative findings: (unit s (unknown) date) Intertrochanteric unknown) hip fracture, reducible with traction (unknown) (no (unknown) (unknown) Our attention was (units (unknown) date) then directed unknown) distally to the interlocking of the nail. An (unknown) (no (unknown) (unknown) Our attention was (units (unknown) date) then turned to the unknown) proximal locking of the nail. A small (unknown) (no (unknown) (unknown) Patient: (units (unkno wn) date) Nichol Meng R unknown) MR#: [id number] (unknown) (no (unknown) (unknown) Plan for aftercare: (unit s (unknown) date) unknown) (unknown) (no (unknown) (unknown) Post-operative (units (unknown) date) unknown) (unknown) (no (unknown) (unknown) Postoperative plan: (unit s (unknown) date) Weightbearing as unknown) tolerated with crutches or walker for 4 (unknown) (no (unknown) (unknown) Procedure + (units (un known) date) Clinicians unknown) (unknown) (no (unknown) (unknown) Procedure in (units (u nknown) date) detail: unknown) (unknown) (no (unknown) (unknown) Procedure: (units (unk nown) date) unknown) (unknown) (no (unknown) (unknown) Provider: (units (unkn own) date) Caesar Guerrier MD unknown) (unknown) (no (unknown) (unknown) Same procedure as (units (unknown) date) scheduled: Yes unknown) (unknown) (no (unknown) (unknown) Signed By: (units (unk nown) date) unknown) (unknown) (no (unknown) (unknown) Surgeon: Caesar (units (unknown) date) Chey unknown) (unknown) (no (unknown) (unknown) The bone was then (units (unknown) date) drilled and measured unknown) and interlocking screw was placed. (unknown) (no (unknown) (unknown) The risks include (units (unknown) date) bleeding, infection, unknown) damage to internal structures, failure of (unknown) (no (unknown) (unknown) The wounds were (units (unknown) date) copiously irrigated. unknown) The subcutaneous area was closed with (unknown) (no (unknown) (unknown) adduction and the (units (unknown) date) uninjured hip unknown) extended about 30?. (unknown) (no (unknown) (unknown) adduction. The (units (unknown) date) lateral surface of unknown) the hip was sterilely prepped after which a (unknown) (no (unknown) (unknown) administered. The (units (unknown) date) patient was taken to unknown) the operating room and anesthesia was (unknown) (no (unknown) (unknown) advanced over the (units (unknown) date) guidewire into the unknown) center of the femoral head to beneath the (unknown) (no (unknown) (unknown) applying (units (unkno wn) date) longitudinal unknown) traction and internal rotation and a small amount of (unknown) (no (unknown) (unknown) appropriately (units (u nknown) date) positioned, the unknown) length of nail was measured the lateral cortex was (unknown) (no (unknown) (unknown) change dressings to (unit s (unknown) date) clean dry dressings unknown) after 3 days. Okay for dressings to (unknown) (no (unknown) (unknown) come off completely (unit s (unknown) date) at 7 days. Okay for unknown) warm soap and water to run over the (unknown) (no (unknown) (unknown) correct nail and (units (unknown) date) screw placement. unknown) (unknown) (no (unknown) (unknown) discussed that in (units (unknown) date) order to facilitate unknown) mobilization early, as well as proper (unknown) (no (unknown) (unknown) down to the bone (units (unknown) date) and the targeting unknown) jig sleeve was advanced to the bone. Under (unknown) (no (unknown) (unknown) dressing was (units (u nknown) date) applied. Patient was unknown) subsequently transferred from the [facility] table (unknown) (no (unknown) (unknown) drilled. The (units (u nknown) date) entry/channel Reamer unknown) was used to enter the cortex and reamed the (unknown) (no (unknown) (unknown) epinephrine. The (units (unknown) date) skin was then closed unknown) with segundo after which a sterile (unknown) (no (unknown) (unknown) established. (units (u nknown) date) Patient was unknown) positioned supine on the operating table. The feet (unknown) (no (unknown) (unknown) fluoroscopic (units (u nknown) date) control, a guidewire unknown) was positioned through the lateral cortex of (unknown) (no (unknown) (unknown) fluoroscopic (units (u nknown) date) imaging. Final AP unknown) and lateral projections were taken confirming (unknown) (no (unknown) (unknown) having tolerated (units (unknown) date) the procedure unknown) without difficulty. (unknown) (no (unknown) (unknown) healing of the (units ( unknown) date) fracture, we unknown) recommend operative fixation using an intramedullary (unknown) (no (unknown) (unknown) identity, surgical (units (unknown) date) procedure and unknown) surgical site were verified. (unknown) (no (unknown) (unknown) in 2 weeks with a (units (unknown) date) PA for staple unknown) removal, and follow-up in 6 weeks with (unknown) (no (unknown) (unknown) incision and a (units (unknown) date) shower or sponge unknown) bath, however no soaking the wound. Follow-up (unknown) (no (unknown) (unknown) incision was made (units (unknown) date) and the guide was unknown) used to place the sleeve down to the bone. (unknown) (no (unknown) (unknown) incision was made (units (unknown) date) laterally over the unknown) distal vastus tubercle, through the fascia (unknown) (no (unknown) (unknown) inserted through (units (unknown) date) the tip of the unknown) greater trochanter to the level of the lesser (unknown) (no (unknown) (unknown) insertion handle (units (unknown) date) and the nail was unknown) inserted and its depth verified. (unknown) (no (unknown) (unknown) interrupted 2-0 (units (unknown) date) Vicryl. The wound unknown) was then infiltrated with 0.5% lidocaine with (unknown) (no (unknown) (unknown) metaphyseal portion (unit s (unknown) date) of the canal. The unknown) intramedullary nail was assembled on the (unknown) (no (unknown) (unknown) nail. The risks and (unit s (unknown) date) benefits and unknown) alternatives to the procedure were discussed. (unknown) (no (unknown) (unknown) opened with a (units ( unknown) date) drill. The lag screw unknown) was assembled on the insertion handle and (unknown) (no (unknown) (unknown) regarding outcomes. (unit s (unknown) date) Patient expressed unknown) understanding with these risks and wished (unknown) (no (unknown) (unknown) strong enough. DVT (units (unknown) date) prophylaxis for 4 unknown) weeks (default aspirin 81 mg b.i.d., is (unknown) (no (unknown) (unknown) subchondral (units (un known) date) surface. The unknown) compression screw was then placed in compressed under (unknown) (no (unknown) (unknown) the femoral neck (units (unknown) date) and into the center unknown) of the femoral head. Once the wire was (unknown) (no (unknown) (unknown) the implants, and (units (unknown) date) future surgery as unknown) well as anesthesia. No guarantees were made (unknown) (no (unknown) (unknown) to go forth with (units (unknown) date) surgery. unknown) (unknown) (no (unknown) (unknown) to the hospital (units (unknown) date) bed. unknown) (unknown) (no (unknown) (unknown) to the tip of the (units (unknown) date) trochanter could be unknown) palpated. A threaded guide pin was then (unknown) (no (unknown) (unknown) tuberosity. Once (units (unknown) date) the wire was unknown) appropriately positioned the entry hole was (unknown) (no (unknown) (unknown) unable to take (units (unknown) date) aspirin, and then unknown) Lovenox, 40 mg subcutaneous daily). Okay to (unknown) (no (unknown) (unknown) using leverage to (units (unknown) date) the operating table. unknown) (unknown) (no (unknown) (unknown) verified and site (units (unknown) date) of surgery was unknown) marked. Prophylactic antibiotics were (unknown) (no (unknown) (unknown) vertical isolation (units (unknown) date) drape was placed. unknown) The surgical team paused in the patient's (unknown) (no (unknown) (unknown) visualization of (units (unknown) date) the hip and AP and unknown) lateral planes. The fracture was reduced by (unknown) (no (unknown) (unknown) weeks. After 4 (units (unknown) date) weeks it is okay to unknown) ambulate without assistance if stable and (unknown) (no (unknown) (unknown) were padded and (units (unknown) date) placed into the unknown) traction boots with the injured hip in slight Result panel 16 (unknown) (no (unknown) (unknown) (no value) (units (unk nown) date) unknown) (unknown) (no (unknown) (unknown) [id number] (units (unkn own) date) unknown) (unknown) (no (unknown) (unknown) 04/30/22 (units (unkno wn) date) unknown) (unknown) (no (unknown) (unknown) [address] [place] [address] (units (unknown) date) unknown) (unknown) (no (unknown) (unknown) 23:53. (units (unkno wn) date) unknown) (unknown) (no (unknown) (unknown) Accession Number: (units (unknown) date) [id number] unknown) (unknown) (no (unknown) (unknown) Age/Sex: 61 / F (units (unknown) date) Date of Service: unknown) (unknown) (no (unknown) (unknown) NIKA [place]ston [address] (unit s (unknown) date) unknown) (unknown) (no (unknown) (unknown) Approved by: Reji (units (unknown) date) Polly Fontaine on unknown) 05/01/2022 at 9:49 (unknown) (no (unknown) (unknown) COMPARISON: [facility] (units (unknown) date) [facility], CR, XR HIP unknown) W PEL IF DONE LT 2V, 04/29/2022, (unknown) (no (unknown) (unknown) : 1960 (units (unknown) date) Acct:[id number] unknown) (unknown) (no (unknown) (unknown) Dictated by: Reji (units (unknown) date) Polly Fontaine on unknown) 05/01/2022 at 9:48 (unknown) (no (unknown) (unknown) FINDINGS: (units (unkn own) date) unknown) (unknown) (no (unknown) (unknown) Hip alignment is (units (unknown) date) anatomic. unknown) (unknown) (no (unknown) (unknown) IMPRESSION: Fluoro (units (unknown) date) guidance was unknown) provided intraoperatively for internal (unknown) (no (unknown) (unknown) INDICATIONS: HIP FX (unit s (unknown) date) REPAIR left unknown) (unknown) (no (unknown) (unknown) Intraoperative (units (unknown) date) fluoroscopic images unknown) of left hip shows internal fixation of (unknown) (no (unknown) (unknown) [facility] (units (unknown) date) unknown) (unknown) (no (unknown) (unknown) Loc: AC 215-1 (units ( unknown) date) unknown) (unknown) (no (unknown) (unknown) Ordering Provider: (units (unknown) date) Tyree Hickman MD unknown) (unknown) (no (unknown) (unknown) PROCEDURE: XR HIP W (unit s (unknown) date) PEL IF DONE LT 2V unknown) (unknown) (no (unknown) (unknown) Patient: (units (unkno wn) date) Nichol Meng R unknown) MR#: [id number] (unknown) (no (unknown) (unknown) Procedure: XR hip w (unit s (unknown) date) pel if done LT 2V unknown) (unknown) (no (unknown) (unknown) Signed (units (unkno wn) date) unknown) (unknown) (no (unknown) (unknown) TECHNIQUE: 4 (units (u nknown) date) intraoperative unknown) fluoroscopic views of the hip were acquired. (unknown) (no (unknown) (unknown) XRay Report (units (un known) date) unknown) (unknown) (no (unknown) (unknown) fixation of left (units (unknown) date) unknown) (unknown) (no (unknown) (unknown) left (units (unkno wn) date) intertrochanteric unknown) fracture with intramedullary tye and surgical screws in (unknown) (no (unknown) (unknown) patient's known (units (unknown) date) unknown) (unknown) (no (unknown) (unknown) place. (units (unkno wn) date) unknown) (unknown) (no (unknown) (unknown) proximal femur. (units (unknown) date) unknown) Result panel 17 (unknown) (no (unknown) (unknown) (no value) (units (unk nown) date) unknown) (unknown) (no (unknown) (unknown) [id number] (units (unkno wn) date) unknown) (unknown) (no (unknown) (unknown) 04/30/22 1637 (units ( unknown) date) unknown) (unknown) (no (unknown) (unknown) A C-arm was then (units (unknown) date) brought into the OR unknown) and positioned perpendicularly to allow (unknown) (no (unknown) (unknown) A small incision (units (unknown) date) was made proximal to unknown) the greater trochanter through the fascia (unknown) (no (unknown) (unknown) Age/Sex: 61 / F (units (unknown) date) unknown) (unknown) (no (unknown) (unknown) Anesthesia Type: (units (unknown) date) General unknown) (unknown) (no (unknown) (unknown) Click Yes if (units (u nknown) date) Unassisted: Yes unknown) (unknown) (no (unknown) (unknown) Complications: none (unit s (unknown) date) unknown) (unknown) (no (unknown) (unknown) Condition: stable (units (unknown) date) unknown) (unknown) (no (unknown) (unknown) : 1960 (units (unknown) date) Acct:[id number] unknown) (unknown) (no (unknown) (unknown) Date of Service: (units (unknown) date) 04/30/22 unknown) (unknown) (no (unknown) (unknown) Details of (units (unk nown) date) operation: The unknown) patient's identity was verified. The left hip was (unknown) (no (unknown) (unknown) Disposition: PACU (units (unknown) date) unknown) (unknown) (no (unknown) (unknown) Disposition: The (units (unknown) date) patient was taken to unknown) the recovery room in stable condition (unknown) (no (unknown) (unknown) Estimated Blood (units (unknown) date) Loss (mL): 20 unknown) (unknown) (no (unknown) (unknown) Findings: (units (unkn own) date) unknown) (unknown) (no (unknown) (unknown) [place] with x-rays (unit s (unknown) date) on arrival unknown) (unknown) (no (unknown) (unknown) Indications: This (units (unknown) date) is a 61 year old unknown) female with the above diagnosis. We (unknown) (no (unknown) (unknown) Indications: (units (u nknown) date) unknown) (unknown) (no (unknown) (unknown) [facility] (units (unknown) date) [address] unknown) [place] [address] (unknown) (no (unknown) (unknown) Left hip (units (unkno wn) date) cephalomedullary unknown) nail (unknown) (no (unknown) (unknown) Operative Note (units (unknown) date) unknown) (unknown) (no (unknown) (unknown) Operative Notes (units (unknown) date) unknown) (unknown) (no (unknown) (unknown) Operative findings: (unit s (unknown) date) Intertrochanteric unknown) hip fracture, reducible with traction (unknown) (no (unknown) (unknown) Our attention was (units (unknown) date) then directed unknown) distally to the interlocking of the nail. An (unknown) (no (unknown) (unknown) Our attention was (units (unknown) date) then turned to the unknown) proximal locking of the nail. A small (unknown) (no (unknown) (unknown) Patient: (units (unkno wn) date) Nichol Meng R unknown) MR#: [id number] (unknown) (no (unknown) (unknown) Plan for aftercare: (unit s (unknown) date) unknown) (unknown) (no (unknown) (unknown) Post-operative (units (unknown) date) unknown) (unknown) (no (unknown) (unknown) Postoperative plan: (unit s (unknown) date) Weightbearing as unknown) tolerated with crutches or walker for 4 (unknown) (no (unknown) (unknown) Procedure + (units (un known) date) Clinicians unknown) (unknown) (no (unknown) (unknown) Procedure in (units (u nknown) date) detail: unknown) (unknown) (no (unknown) (unknown) Procedure: (units (unk nown) date) unknown) (unknown) (no (unknown) (unknown) Provider: (units (unkn own) date) Caesar Guerrier MD unknown) (unknown) (no (unknown) (unknown) Same procedure as (units (unknown) date) scheduled: Yes unknown) (unknown) (no (unknown) (unknown) Signed (units (unkno wn) date) By:<Electronically unknown) signed by Caesar Guerrier MD> (unknown) (no (unknown) (unknown) Surgeon: Caesar (units (unknown) date) Chey unknown) (unknown) (no (unknown) (unknown) The bone was then (units (unknown) date) drilled and measured unknown) and interlocking screw was placed. (unknown) (no (unknown) (unknown) The risks include (units (unknown) date) bleeding, infection, unknown) damage to internal structures, failure of (unknown) (no (unknown) (unknown) The wounds were (units (unknown) date) copiously irrigated. unknown) The subcutaneous area was closed with (unknown) (no (unknown) (unknown) adduction and the (units (unknown) date) uninjured hip unknown) extended about 30?. (unknown) (no (unknown) (unknown) adduction. The (units (unknown) date) lateral surface of unknown) the hip was sterilely prepped after which a (unknown) (no (unknown) (unknown) administered. The (units (unknown) date) patient was taken to unknown) the operating room and anesthesia was (unknown) (no (unknown) (unknown) advanced over the (units (unknown) date) guidewire into the unknown) center of the femoral head to beneath the (unknown) (no (unknown) (unknown) applying (units (unkno wn) date) longitudinal unknown) traction and internal rotation and a small amount of (unknown) (no (unknown) (unknown) appropriately (units (u nknown) date) positioned, the unknown) length of nail was measured the lateral cortex was (unknown) (no (unknown) (unknown) change dressings to (unit s (unknown) date) clean dry dressings unknown) after 3 days. Okay for dressings to (unknown) (no (unknown) (unknown) come off completely (unit s (unknown) date) at 7 days. Okay for unknown) warm soap and water to run over the (unknown) (no (unknown) (unknown) correct nail and (units (unknown) date) screw placement. unknown) (unknown) (no (unknown) (unknown) discussed that in (units (unknown) date) order to facilitate unknown) mobilization early, as well as proper (unknown) (no (unknown) (unknown) down to the bone (units (unknown) date) and the targeting unknown) jig sleeve was advanced to the bone. Under (unknown) (no (unknown) (unknown) dressing was (units (u nknown) date) applied. Patient was unknown) subsequently transferred from the [facility] table (unknown) (no (unknown) (unknown) drilled. The (units (u nknown) date) entry/channel Reamer unknown) was used to enter the cortex and reamed the (unknown) (no (unknown) (unknown) epinephrine. The (units (unknown) date) skin was then closed unknown) with segundo after which a sterile (unknown) (no (unknown) (unknown) established. (units (u nknown) date) Patient was unknown) positioned supine on the operating table. The feet (unknown) (no (unknown) (unknown) fluoroscopic (units (u nknown) date) control, a guidewire unknown) was positioned through the lateral cortex of (unknown) (no (unknown) (unknown) fluoroscopic (units (u nknown) date) imaging. Final AP unknown) and lateral projections were taken confirming (unknown) (no (unknown) (unknown) having tolerated (units (unknown) date) the procedure unknown) without difficulty. (unknown) (no (unknown) (unknown) healing of the (units ( unknown) date) fracture, we unknown) recommend operative fixation using an intramedullary (unknown) (no (unknown) (unknown) identity, surgical (units (unknown) date) procedure and unknown) surgical site were verified. (unknown) (no (unknown) (unknown) in 2 weeks with a (units (unknown) date) PA for staple unknown) removal, and follow-up in 6 weeks with (unknown) (no (unknown) (unknown) incision and a (units (unknown) date) shower or sponge unknown) bath, however no soaking the wound. Follow-up (unknown) (no (unknown) (unknown) incision was made (units (unknown) date) and the guide was unknown) used to place the sleeve down to the bone. (unknown) (no (unknown) (unknown) incision was made (units (unknown) date) laterally over the unknown) distal vastus tubercle, through the fascia (unknown) (no (unknown) (unknown) inserted through (units (unknown) date) the tip of the unknown) greater trochanter to the level of the lesser (unknown) (no (unknown) (unknown) insertion handle (units (unknown) date) and the nail was unknown) inserted and its depth verified. (unknown) (no (unknown) (unknown) interrupted 2-0 (units (unknown) date) Vicryl. The wound unknown) was then infiltrated with 0.5% lidocaine with (unknown) (no (unknown) (unknown) metaphyseal portion (unit s (unknown) date) of the canal. The unknown) intramedullary nail was assembled on the (unknown) (no (unknown) (unknown) nail. The risks and (unit s (unknown) date) benefits and unknown) alternatives to the procedure were discussed. (unknown) (no (unknown) (unknown) opened with a (units ( unknown) date) drill. The lag screw unknown) was assembled on the insertion handle and (unknown) (no (unknown) (unknown) regarding outcomes. (unit s (unknown) date) Patient expressed unknown) understanding with these risks and wished (unknown) (no (unknown) (unknown) strong enough. DVT (units (unknown) date) prophylaxis for 4 unknown) weeks (default aspirin 81 mg b.i.d., is (unknown) (no (unknown) (unknown) subchondral (units (un known) date) surface. The unknown) compression screw was then placed in compressed under (unknown) (no (unknown) (unknown) the femoral neck (units (unknown) date) and into the center unknown) of the femoral head. Once the wire was (unknown) (no (unknown) (unknown) the implants, and (units (unknown) date) future surgery as unknown) well as anesthesia. No guarantees were made (unknown) (no (unknown) (unknown) to go forth with (units (unknown) date) surgery. unknown) (unknown) (no (unknown) (unknown) to the hospital (units (unknown) date) bed. unknown) (unknown) (no (unknown) (unknown) to the tip of the (units (unknown) date) trochanter could be unknown) palpated. A threaded guide pin was then (unknown) (no (unknown) (unknown) tuberosity. Once (units (unknown) date) the wire was unknown) appropriately positioned the entry hole was (unknown) (no (unknown) (unknown) unable to take (units (unknown) date) aspirin, and then unknown) Lovenox, 40 mg subcutaneous daily). Okay to (unknown) (no (unknown) (unknown) using leverage to (units (unknown) date) the operating table. unknown) (unknown) (no (unknown) (unknown) verified and site (units (unknown) date) of surgery was unknown) marked. Prophylactic antibiotics were (unknown) (no (unknown) (unknown) vertical isolation (units (unknown) date) drape was placed. unknown) The surgical team paused in the patient's (unknown) (no (unknown) (unknown) visualization of (units (unknown) date) the hip and AP and unknown) lateral planes. The fracture was reduced by (unknown) (no (unknown) (unknown) weeks. After 4 (units (unknown) date) weeks it is okay to unknown) ambulate without assistance if stable and (unknown) (no (unknown) (unknown) were padded and (units (unknown) date) placed into the unknown) traction boots with the injured hip in slight Result panel 18 (unknown) (no (unknown) (unknown) (no value) (units (unk nown) date) unknown) (unknown) (no (unknown) (unknown) (1) Closed (units (unk nown) date) fracture of left unknown) hip: (unknown) (no (unknown) (unknown) (past 8 hours): (units (unknown) date) unknown) (unknown) (no (unknown) (unknown) [id number] (units (unkno wn) date) unknown) (unknown) (no (unknown) (unknown) 00:00 (units (unkno wn) date) unknown) (unknown) (no (unknown) (unknown) 06:35 06:35 (units (un known) date) unknown) (unknown) (no (unknown) (unknown) 04/30/22 06:35 (units (unknown) date) unknown) (unknown) (no (unknown) (unknown) 04/30/22 (units (unkno wn) date) 04/30/22 unknown) (unknown) (no (unknown) (unknown) 05/01/22 (units (unkno wn) date) unknown) (unknown) (no (unknown) (unknown) Actual Procedure (units (unknown) date) Side Surgeon unknown) (unknown) (no (unknown) (unknown) Age/Sex: 61 / F (units (unknown) date) unknown) (unknown) (no (unknown) (unknown) Assessment + (units (u nknown) date) Plan Post-op unknown) (unknown) (no (unknown) (unknown) Assessment and (units (unknown) date) Plan narrative: unknown) (unknown) (no (unknown) (unknown) Assessment and (units (unknown) date) plan unknown) (unknown) (no (unknown) (unknown) BUN < 2 L (units (unkn own) date) unknown) (unknown) (no (unknown) (unknown) BUN/Creatinine (units (unknown) date) Ratio 5.4 L unknown) (unknown) (no (unknown) (unknown) Baso # (Auto) 0 (units (unknown) date) unknown) (unknown) (no (unknown) (unknown) Baso % (Auto) (units ( unknown) date) 0.5 unknown) (unknown) (no (unknown) (unknown) Blood Pressure (units (unknown) date) 139/68 unknown) (unknown) (no (unknown) (unknown) Calcium 8.1 L (units ( unknown) date) unknown) (unknown) (no (unknown) (unknown) Carbon Dioxide (units (unknown) date) 27 unknown) (unknown) (no (unknown) (unknown) Chloride 94 L (units ( unknown) date) unknown) (unknown) (no (unknown) (unknown) Creatinine 0.37 (units (unknown) date) L unknown) (unknown) (no (unknown) (unknown) : 1960 (units (unknown) date) Acct:[id number] unknown) (unknown) (no (unknown) (unknown) Date of Service: (units (unknown) date) 04/30/22 unknown) (unknown) (no (unknown) (unknown) Deep Vein (units (unkn own) date) Thrombosis/Pulmon unknown) brijesh Embolism Present on Admission: No (unknown) (no (unknown) (unknown) Eos # (Auto) 0 (units (unknown) date) unknown) (unknown) (no (unknown) (unknown) Eos % (Auto) 0.4 (units (unknown) date) L unknown) (unknown) (no (unknown) (unknown) Estimated GFR > (units (unknown) date) 60 unknown) (unknown) (no (unknown) (unknown) Exam (units (unkno wn) date) unknown) (unknown) (no (unknown) (unknown) Glucose 75 L (units (u nknown) date) unknown) (unknown) (no (unknown) (unknown) Hct 35.8 L (units (unk nown) date) unknown) (unknown) (no (unknown) (unknown) Hgb 12.4 (units (unkno wn) date) unknown) (unknown) (no (unknown) (unknown) [facility] (units (unknown) date) [address] unknown) [place] [address] (unknown) (no (unknown) (unknown) Laboratory (units (unk nown) date) Results - last 24 unknown) hr (unknown) (no (unknown) (unknown) Labs (units (unkno wn) date) unknown) (unknown) (no (unknown) (unknown) Labs: (units (unkno wn) date) unknown) (unknown) (no (unknown) (unknown) Lymph # (Auto) (units (unknown) date) 1300 unknown) (unknown) (no (unknown) (unknown) Lymph % (Auto) (units (unknown) date) 14.5 L unknown) (unknown) (no (unknown) (unknown) MCH 35.9 H (units (unk nown) date) unknown) (unknown) (no (unknown) (unknown) MCHC 34.6 (units (unkn own) date) unknown) (unknown) (no (unknown) (unknown) MCV 103.8 H (units (un known) date) unknown) (unknown) (no (unknown) (unknown) [place] # (Auto) (units ( unknown) date) 1000 H unknown) (unknown) (no (unknown) (unknown) [place] % (Auto) (units ( unknown) date) 11.3 unknown) (unknown) (no (unknown) (unknown) Neut # (Auto) (units ( unknown) date) 6600 unknown) (unknown) (no (unknown) (unknown) Neut % (Auto) (units ( unknown) date) 73.3 unknown) (unknown) (no (unknown) (unknown) Objective (units (unkn own) date) unknown) (unknown) (no (unknown) (unknown) Operation Date: (units (unknown) date) 04/30/22 15:00 unknown) (unknown) (no (unknown) (unknown) Oxygen Delivery (units (unknown) date) Method Nasal unknown) Cannula (unknown) (no (unknown) (unknown) Oxygen Flow Rate (units (unknown) date) 2 unknown) (unknown) (no (unknown) (unknown) PFSH (units (unkno wn) date) unknown) (unknown) (no (unknown) (unknown) Patient: (units (unkno wn) date) Nichol Meng unknown) MR#: [id number] (unknown) (no (unknown) (unknown) Plt Count 297 (units ( unknown) date) unknown) (unknown) (no (unknown) (unknown) Postoperative (units ( unknown) date) unknown) (unknown) (no (unknown) (unknown) Potassium 5.0 (units ( unknown) date) unknown) (unknown) (no (unknown) (unknown) Procedures (units (unk nown) date) unknown) (unknown) (no (unknown) (unknown) Procedures: (units (un known) date) unknown) (unknown) (no (unknown) (unknown) Progress Note (units ( unknown) date) unknown) (unknown) (no (unknown) (unknown) Provider: (units (unkn own) date) Cary Stahl P.A-C unknown) (unknown) (no (unknown) (unknown) Pulse Oximetry (units (unknown) date) 98 unknown) (unknown) (no (unknown) (unknown) Pulse Rate 74 (units ( unknown) date) unknown) (unknown) (no (unknown) (unknown) Quality (units (unkno wn) date) unknown) (unknown) (no (unknown) (unknown) RBC 3.45 L (units (unk nown) date) unknown) (unknown) (no (unknown) (unknown) RDW 12.9 (units (unkno wn) date) unknown) (unknown) (no (unknown) (unknown) Respiratory Rate (units (unknown) date) 17 unknown) (unknown) (no (unknown) (unknown) Result Diagrams: (units (unknown) date) unknown) (unknown) (no (unknown) (unknown) Signed By: (units (unk nown) date) unknown) (unknown) (no (unknown) (unknown) Smoking Status: (units (unknown) date) Current every day unknown) smoker (unknown) (no (unknown) (unknown) Social History (units (unknown) date) (Updated 04/30/22 unknown) @ 10:49 by Lydia Paris MD) (unknown) (no (unknown) (unknown) Sodium 127 L (units (u nknown) date) unknown) (unknown) (no (unknown) (unknown) Status post (units (un known) date) appendectomy unknown) (unknown) (no (unknown) (unknown) Status post (units (un known) date) breast lumpectomy unknown) (unknown) (no (unknown) (unknown) Status post (units (un known) date) hysterectomy unknown) (unknown) (no (unknown) (unknown) Surgical History (units (unknown) date) (Reviewed unknown) 04/30/22 @ 05:46 by Tyree Hickman MD) (unknown) (no (unknown) (unknown) Temperature 97.1 (units (unknown) date) F L unknown) (unknown) (no (unknown) (unknown) VTE (units (unkno wn) date) unknown) (unknown) (no (unknown) (unknown) Vital Signs (units (un known) date) unknown) (unknown) (no (unknown) (unknown) WBC 9.0 (units (unkno wn) date) unknown) (unknown) (no (unknown) (unknown) Weightbearing as (units (unknown) date) tolerated with unknown) crutches or walker for 4 weeks.? After 4 weeks (unknown) (no (unknown) (unknown) [Embedded Image (units (unknown) date) Not Available] unknown) (unknown) (no (unknown) (unknown) alcohol intake: (units (unknown) date) current unknown) (unknown) (no (unknown) (unknown) arrival (units (unkno wn) date) unknown) (unknown) (no (unknown) (unknown) aspirin, and (units (u nknown) date) then Lovenox, 40 unknown) mg subcutaneous daily).? Okay to change dressings (unknown) (no (unknown) (unknown) at 7 days.? Okay (units (unknown) date) for warm soap and unknown) water to run over the incision and a shower (unknown) (no (unknown) (unknown) for staple (units (unk nown) date) removal, and unknown) follow-up in [address] Guerrier with x-rays on (unknown) (no (unknown) (unknown) household (units (unkn own) date) members: spouse unknown) (unknown) (no (unknown) (unknown) it is okay to (units ( unknown) date) ambulate without unknown) assistance if stable and strong enough.? DVT (unknown) (no (unknown) (unknown) or sponge bath, (units (unknown) date) however no unknown) soaking the wound.? Follow-up in 2 weeks with a PA (unknown) (no (unknown) (unknown) p Intramedullary (units (unknown) date) Nailing Femur unknown) Left Caesar Guerrier MD (unknown) (no (unknown) (unknown) prophylaxis for (units (unknown) date) 4 weeks (default unknown) aspirin 81 mg b.i.d., is unable to take (unknown) (no (unknown) (unknown) to clean dry (units (u nknown) date) dressings after 3 unknown) days.? Okay for dressings to come off completely Result panel 19 (unknown) (no (unknown) (unknown) (no value) (units (unk nown) date) unknown) (unknown) (no (unknown) (unknown) (1) Closed (units (unk nown) date) fracture of left unknown) hip: (unknown) (no (unknown) (unknown) (past 8 hours): (units (unknown) date) unknown) (unknown) (no (unknown) (unknown) [id number] (units (unkno wn) date) unknown) (unknown) (no (unknown) (unknown) 00:00 (units (unkno wn) date) unknown) (unknown) (no (unknown) (unknown) 06:35 06:35 (units (un known) date) unknown) (unknown) (no (unknown) (unknown) 04/30/22 06:35 (units (unknown) date) unknown) (unknown) (no (unknown) (unknown) 04/30/22 (units (unkno wn) date) 04/30/22 unknown) (unknown) (no (unknown) (unknown) 05/01/22 (units (unkno wn) date) unknown) (unknown) (no (unknown) (unknown) Actual Procedure (units (unknown) date) Side Surgeon unknown) (unknown) (no (unknown) (unknown) Age/Sex: 61 / F (units (unknown) date) unknown) (unknown) (no (unknown) (unknown) Assessment + (units (u nknown) date) Plan Post-op unknown) (unknown) (no (unknown) (unknown) Assessment and (units (unknown) date) Plan narrative: unknown) (unknown) (no (unknown) (unknown) Assessment and (units (unknown) date) plan unknown) (unknown) (no (unknown) (unknown) BUN < 2 L (units (unkn own) date) unknown) (unknown) (no (unknown) (unknown) BUN/Creatinine (units (unknown) date) Ratio 5.4 L unknown) (unknown) (no (unknown) (unknown) Baso # (Auto) 0 (units (unknown) date) unknown) (unknown) (no (unknown) (unknown) Baso % (Auto) (units ( unknown) date) 0.5 unknown) (unknown) (no (unknown) (unknown) Blood Pressure (units (unknown) date) 139/68 unknown) (unknown) (no (unknown) (unknown) Calcium 8.1 L (units ( unknown) date) unknown) (unknown) (no (unknown) (unknown) Carbon Dioxide (units (unknown) date) 27 unknown) (unknown) (no (unknown) (unknown) Chloride 94 L (units ( unknown) date) unknown) (unknown) (no (unknown) (unknown) Creatinine 0.37 (units (unknown) date) L unknown) (unknown) (no (unknown) (unknown) : 1960 (units (unknown) date) Acct:[id number] unknown) (unknown) (no (unknown) (unknown) Date Patient (units (u nknown) date) Seen: 05/01/22 unknown) (unknown) (no (unknown) (unknown) Date of Service: (units (unknown) date) 04/30/22 unknown) (unknown) (no (unknown) (unknown) Deep Vein (units (unkn own) date) Thrombosis/Pulmon unknown) brijesh Embolism Present on Admission: No (unknown) (no (unknown) (unknown) Eos # (Auto) 0 (units (unknown) date) unknown) (unknown) (no (unknown) (unknown) Eos % (Auto) 0.4 (units (unknown) date) L unknown) (unknown) (no (unknown) (unknown) Estimated GFR > (units (unknown) date) 60 unknown) (unknown) (no (unknown) (unknown) Exam (units (unkno wn) date) unknown) (unknown) (no (unknown) (unknown) Glucose 75 L (units (u nknown) date) unknown) (unknown) (no (unknown) (unknown) Hct 35.8 L (units (unk nown) date) unknown) (unknown) (no (unknown) (unknown) Hgb 12.4 (units (unkno wn) date) unknown) (unknown) (no (unknown) (unknown) Interval (units (unkno wn) date) history: unknown) (unknown) (no (unknown) (unknown) [facility] (units (unknown) date) [address] unknown) [place] [address] (unknown) (no (unknown) (unknown) Laboratory (units (unk nown) date) Results - last 24 unknown) hr (unknown) (no (unknown) (unknown) Labs (units (unkno wn) date) unknown) (unknown) (no (unknown) (unknown) Labs: (units (unkno wn) date) unknown) (unknown) (no (unknown) (unknown) Lymph # (Auto) (units (unknown) date) 1300 unknown) (unknown) (no (unknown) (unknown) Lymph % (Auto) (units (unknown) date) 14.5 L unknown) (unknown) (no (unknown) (unknown) MCH 35.9 H (units (unk nown) date) unknown) (unknown) (no (unknown) (unknown) MCHC 34.6 (units (unkn own) date) unknown) (unknown) (no (unknown) (unknown) MCV 103.8 H (units (un known) date) unknown) (unknown) (no (unknown) (unknown) [place] # (Auto) (units ( unknown) date) 1000 H unknown) (unknown) (no (unknown) (unknown) [place] % (Auto) (units ( unknown) date) 11.3 unknown) (unknown) (no (unknown) (unknown) Neut # (Auto) (units ( unknown) date) 6600 unknown) (unknown) (no (unknown) (unknown) Neut % (Auto) (units ( unknown) date) 73.3 unknown) (unknown) (no (unknown) (unknown) Objective (units (unkn own) date) unknown) (unknown) (no (unknown) (unknown) Operation Date: (units (unknown) date) 04/30/22 15:00 unknown) (unknown) (no (unknown) (unknown) Oxygen Delivery (units (unknown) date) Method Nasal unknown) Cannula (unknown) (no (unknown) (unknown) Oxygen Flow Rate (units (unknown) date) 2 unknown) (unknown) (no (unknown) (unknown) PFSH (units (unkno wn) date) unknown) (unknown) (no (unknown) (unknown) Patient: (units (unkno wn) date) Nichol Meng unknown) MR#: [id number] (unknown) (no (unknown) (unknown) Plt Count 297 (units ( unknown) date) unknown) (unknown) (no (unknown) (unknown) Postoperative (units ( unknown) date) unknown) (unknown) (no (unknown) (unknown) Potassium 5.0 (units ( unknown) date) unknown) (unknown) (no (unknown) (unknown) Procedures (units (unk nown) date) unknown) (unknown) (no (unknown) (unknown) Procedures: (units (un known) date) unknown) (unknown) (no (unknown) (unknown) Progress Note (units ( unknown) date) unknown) (unknown) (no (unknown) (unknown) Provider: (units (unkn own) date) Cary Stahl P.A-C unknown) (unknown) (no (unknown) (unknown) Pulse Oximetry (units (unknown) date) 98 unknown) (unknown) (no (unknown) (unknown) Pulse Rate 74 (units ( unknown) date) unknown) (unknown) (no (unknown) (unknown) Quality (units (unkno wn) date) unknown) (unknown) (no (unknown) (unknown) RBC 3.45 L (units (unk nown) date) unknown) (unknown) (no (unknown) (unknown) RDW 12.9 (units (unkno wn) date) unknown) (unknown) (no (unknown) (unknown) Respiratory Rate (units (unknown) date) 17 unknown) (unknown) (no (unknown) (unknown) Result Diagrams: (units (unknown) date) unknown) (unknown) (no (unknown) (unknown) Signed By: (units (unk nown) date) unknown) (unknown) (no (unknown) (unknown) Sitting up in (units ( unknown) date) bed. Tells me her unknown) passed early this morning from (unknown) (no (unknown) (unknown) Smoking Status: (units (unknown) date) Current every day unknown) smoker (unknown) (no (unknown) (unknown) Social History (units (unknown) date) (Updated 04/30/22 unknown) @ 10:49 by Lydia Paris MD) (unknown) (no (unknown) (unknown) Sodium 127 L (units (u nknown) date) unknown) (unknown) (no (unknown) (unknown) Status post (units (un known) date) appendectomy unknown) (unknown) (no (unknown) (unknown) Status post (units (un known) date) breast lumpectomy unknown) (unknown) (no (unknown) (unknown) Status post (units (un known) date) hysterectomy unknown) (unknown) (no (unknown) (unknown) Subjective (units (unk nown) date) unknown) (unknown) (no (unknown) (unknown) Surgical History (units (unknown) date) (Reviewed unknown) 04/30/22 @ 05:46 by Tyree Hickman MD) (unknown) (no (unknown) (unknown) Temperature 97.1 (units (unknown) date) F L unknown) (unknown) (no (unknown) (unknown) Time Patient (units (u nknown) date) Seen: 07:25 unknown) (unknown) (no (unknown) (unknown) VTE (units (unkno wn) date) unknown) (unknown) (no (unknown) (unknown) Vital Signs (units (un known) date) unknown) (unknown) (no (unknown) (unknown) WBC 9.0 (units (unkno wn) date) unknown) (unknown) (no (unknown) (unknown) Weightbearing as (units (unknown) date) tolerated with unknown) crutches or walker for 4 weeks.? After 4 weeks (unknown) (no (unknown) (unknown) [Embedded Image (units (unknown) date) Not Available] unknown) (unknown) (no (unknown) (unknown) alcohol intake: (units (unknown) date) current unknown) (unknown) (no (unknown) (unknown) arrival (units (unkno wn) date) unknown) (unknown) (no (unknown) (unknown) aspirin, and (units (u nknown) date) then Lovenox, 40 unknown) mg subcutaneous daily).? Okay to change dressings (unknown) (no (unknown) (unknown) at 7 days.? Okay (units (unknown) date) for warm soap and unknown) water to run over the incision and a shower (unknown) (no (unknown) (unknown) complications of (units (unknown) date) metastatic unknown) cancer. She would very much like to go home. (unknown) (no (unknown) (unknown) for staple (units (unk nown) date) removal, and unknown) follow-up in [address] Guerrier with x-rays on (unknown) (no (unknown) (unknown) household (units (unkn own) date) members: spouse unknown) (unknown) (no (unknown) (unknown) it is okay to (units ( unknown) date) ambulate without unknown) assistance if stable and strong enough.? DVT (unknown) (no (unknown) (unknown) or sponge bath, (units (unknown) date) however no unknown) soaking the wound.? Follow-up in 2 weeks with a PA (unknown) (no (unknown) (unknown) p Intramedullary (units (unknown) date) Nailing Femur unknown) Left Caesar Guerrier MD (unknown) (no (unknown) (unknown) prophylaxis for (units (unknown) date) 4 weeks (default unknown) aspirin 81 mg b.i.d., is unable to take (unknown) (no (unknown) (unknown) to clean dry (units (u nknown) date) dressings after 3 unknown) days.? Okay for dressings to come off completely Result panel 20 (unknown) (no (unknown) (unknown) (no value) (units (unk nown) date) unknown) (unknown) (no (unknown) (unknown) (1) Closed (units (unk nown) date) fracture of left unknown) hip: (unknown) (no (unknown) (unknown) (past 8 hours): (units (unknown) date) unknown) (unknown) (no (unknown) (unknown) [id number] (units (unkno wn) date) unknown) (unknown) (no (unknown) (unknown) 00:00 (units (unkno wn) date) unknown) (unknown) (no (unknown) (unknown) 06:35 06:35 (units (un known) date) unknown) (unknown) (no (unknown) (unknown) 1) Weightbearing (units (unknown) date) as tolerated with unknown) crutches or walker for 4 weeks.? After 4 (unknown) (no (unknown) (unknown) 04/30/22 06:35 (units (unknown) date) unknown) (unknown) (no (unknown) (unknown) 04/30/22 04/30/22 (units (unknown) date) unknown) (unknown) (no (unknown) (unknown) 05/01/22 0733 (units ( unknown) date) unknown) (unknown) (no (unknown) (unknown) 05/01/22 (units (unkno wn) date) unknown) (unknown) (no (unknown) (unknown) 2) VTE prophylaxis (units (unknown) date) for 4 weeks; she unknown) has been started on Lovenox 40 mg daily, (unknown) (no (unknown) (unknown) 3) Okay to change (units (unknown) date) dressings to clean unknown) dry dressings if needed on May 04.? Okay (unknown) (no (unknown) (unknown) 4) Follow-up (units (u nknown) date) between May 11 and unknown) 20 with a PA for staple removal, and follow-up (unknown) (no (unknown) (unknown) 4/5 strength in (units (unknown) date) hip flexors, unknown) quadriceps, hamstrings; 5/5 DF, PF, EHL on left. (unknown) (no (unknown) (unknown) Actual Procedure (units (unknown) date) Side Surgeon unknown) (unknown) (no (unknown) (unknown) Age/Sex: 61 / F (units (unknown) date) unknown) (unknown) (no (unknown) (unknown) Assessment + Plan (units (unknown) date) Post-op unknown) (unknown) (no (unknown) (unknown) Assessment and (units (unknown) date) Plan narrative: unknown) (unknown) (no (unknown) (unknown) Assessment and (units (unknown) date) plan unknown) (unknown) (no (unknown) (unknown) BUN < 2 L (units (unkn own) date) unknown) (unknown) (no (unknown) (unknown) BUN/Creatinine (units (unknown) date) Ratio 5.4 L unknown) (unknown) (no (unknown) (unknown) Baso # (Auto) 0 (units (unknown) date) unknown) (unknown) (no (unknown) (unknown) Baso % (Auto) 0.5 (units (unknown) date) unknown) (unknown) (no (unknown) (unknown) Blood Pressure (units (unknown) date) 139/68 unknown) (unknown) (no (unknown) (unknown) Calcium 8.1 L (units ( unknown) date) unknown) (unknown) (no (unknown) (unknown) [place] soft, (units (u nknown) date) compressible, unknown) nontender and without palpable cords or masses. Dr (unknown) (no (unknown) (unknown) Carbon Dioxide 27 (units (unknown) date) unknown) (unknown) (no (unknown) (unknown) Chloride 94 L (units ( unknown) date) unknown) (unknown) (no (unknown) (unknown) Creatinine 0.37 L (units (unknown) date) unknown) (unknown) (no (unknown) (unknown) : 1960 (units (unknown) date) Acct:[id number] unknown) (unknown) (no (unknown) (unknown) Date Patient Seen: (units (unknown) date) 05/01/22 unknown) (unknown) (no (unknown) (unknown) Date of Service: (units (unknown) date) 04/30/22 unknown) (unknown) (no (unknown) (unknown) Deep Vein (units (unkn own) date) Thrombosis/Pulmonar unknown) y Embolism Present on Admission: No (unknown) (no (unknown) (unknown) Eos # (Auto) 0 (units (unknown) date) unknown) (unknown) (no (unknown) (unknown) Eos % (Auto) 0.4 L (units (unknown) date) unknown) (unknown) (no (unknown) (unknown) Estimated GFR > 60 (units (unknown) date) unknown) (unknown) (no (unknown) (unknown) Exam Narrative: (units (unknown) date) unknown) (unknown) (no (unknown) (unknown) Exam (units (unkno wn) date) unknown) (unknown) (no (unknown) (unknown) From an orthopedic (units (unknown) date) standpoint, she can unknown) be discharged if she has appropriate help (unknown) (no (unknown) (unknown) Glucose 75 L (units (u nknown) date) unknown) (unknown) (no (unknown) (unknown) Hct 35.8 L (units (unk nown) date) unknown) (unknown) (no (unknown) (unknown) Hgb 12.4 (units (unkno wn) date) unknown) (unknown) (no (unknown) (unknown) Interval history: (units (unknown) date) unknown) (unknown) (no (unknown) (unknown) [facility] (units (unknown) date) [address] [place] [address] unknown) [place] [address] (unknown) (no (unknown) (unknown) Laboratory Results (units (unknown) date) - last 24 hr unknown) (unknown) (no (unknown) (unknown) Labs (units (unkno wn) date) unknown) (unknown) (no (unknown) (unknown) Labs: (units (unkno wn) date) unknown) (unknown) (no (unknown) (unknown) Lymph # (Auto) (units (unknown) date) 1300 unknown) (unknown) (no (unknown) (unknown) Lymph % (Auto) (units (unknown) date) 14.5 L unknown) (unknown) (no (unknown) (unknown) MCH 35.9 H (units (unk nown) date) unknown) (unknown) (no (unknown) (unknown) MCHC 34.6 (units (unkn own) date) unknown) (unknown) (no (unknown) (unknown) MCV 103.8 H (units (un known) date) unknown) (unknown) (no (unknown) (unknown) [place] # (Auto) 1000 (units (unknown) date) H unknown) (unknown) (no (unknown) (unknown) [place] % (Auto) 11.3 (units (unknown) date) unknown) (unknown) (no (unknown) (unknown) Narrative (units (unkn own) date) unknown) (unknown) (no (unknown) (unknown) Neut # (Auto) 6600 (units (unknown) date) unknown) (unknown) (no (unknown) (unknown) Neut % (Auto) 73.3 (units (unknown) date) unknown) (unknown) (no (unknown) (unknown) Objective (units (unkn own) date) unknown) (unknown) (no (unknown) (unknown) Operation Date: (units (unknown) date) 04/30/22 15:00 unknown) (unknown) (no (unknown) (unknown) Oxygen Delivery (units (unknown) date) Method Nasal unknown) Cannula (unknown) (no (unknown) (unknown) Oxygen Flow Rate 2 (units (unknown) date) unknown) (unknown) (no (unknown) (unknown) PFSH (units (unkno wn) date) unknown) (unknown) (no (unknown) (unknown) Patient: (units (unkno wn) date) Nichol Meng unknown) MR#: [id number] (unknown) (no (unknown) (unknown) Plt Count 297 (units ( unknown) date) unknown) (unknown) (no (unknown) (unknown) Postoperative day: (units (unknown) date) 1 unknown) (unknown) (no (unknown) (unknown) Postoperative (units ( unknown) date) unknown) (unknown) (no (unknown) (unknown) Potassium 5.0 (units ( unknown) date) unknown) (unknown) (no (unknown) (unknown) Procedures (units (unk nown) date) unknown) (unknown) (no (unknown) (unknown) Procedures: (units (un known) date) unknown) (unknown) (no (unknown) (unknown) Progress Note (units ( unknown) date) unknown) (unknown) (no (unknown) (unknown) Provider: (units (unkn own) date) Cary Stahl P.A-C unknown) (unknown) (no (unknown) (unknown) Pulse Oximetry 98 (units (unknown) date) unknown) (unknown) (no (unknown) (unknown) Pulse Rate 74 (units ( unknown) date) unknown) (unknown) (no (unknown) (unknown) Quality (units (unkno wn) date) unknown) (unknown) (no (unknown) (unknown) RBC 3.45 L (units (unk nown) date) unknown) (unknown) (no (unknown) (unknown) RDW 12.9 (units (unkno wn) date) unknown) (unknown) (no (unknown) (unknown) Respiratory Rate (units (unknown) date) 17 unknown) (unknown) (no (unknown) (unknown) Result Diagrams: (units (unknown) date) unknown) (unknown) (no (unknown) (unknown) Signed (units (unkno wn) date) By:<Electronically unknown) signed by Cary Davies Beh> (unknown) (no (unknown) (unknown) Sitting up in bed. (units (unknown) date) Tells me her unknown) passed early this morning from (unknown) (no (unknown) (unknown) Smoking Status: (units (unknown) date) Current every day unknown) smoker (unknown) (no (unknown) (unknown) Social History (units (unknown) date) (Updated 04/30/22 @ unknown) 10:49 by Lydia Paris MD) (unknown) (no (unknown) (unknown) Sodium 127 L (units (u nknown) date) unknown) (unknown) (no (unknown) (unknown) Status post (units (un known) date) appendectomy unknown) (unknown) (no (unknown) (unknown) Status post breast (units (unknown) date) lumpectomy unknown) (unknown) (no (unknown) (unknown) Status post (units (un known) date) hysterectomy unknown) (unknown) (no (unknown) (unknown) Subjective (units (unk nown) date) unknown) (unknown) (no (unknown) (unknown) Surgical History (units (unknown) date) (Reviewed 04/30/22 unknown) @ 05:46 by Tyree Hickman MD) (unknown) (no (unknown) (unknown) Temperature 97.1 F (units (unknown) date) L unknown) (unknown) (no (unknown) (unknown) Time Patient Seen: (units (unknown) date) 07:25 unknown) (unknown) (no (unknown) (unknown) VTE (units (unkno wn) date) unknown) (unknown) (no (unknown) (unknown) Vital Signs (units (un known) date) unknown) (unknown) (no (unknown) (unknown) WBC 9.0 (units (unkno wn) date) unknown) (unknown) (no (unknown) (unknown) [Embedded Image (units (unknown) date) Not Available] unknown) (unknown) (no (unknown) (unknown) alcohol intake: (units (unknown) date) current unknown) (unknown) (no (unknown) (unknown) at home. (units (unkno wn) date) unknown) (unknown) (no (unknown) (unknown) complications of (units (unknown) date) metastatic cancer. unknown) She would very much like to go home. Has (unknown) (no (unknown) (unknown) continue through (units (unknown) date) May 28.? unknown) (unknown) (no (unknown) (unknown) essing placed (units ( unknown) date) intraoperatively is unknown) CDI. (unknown) (no (unknown) (unknown) for dressings to (units (unknown) date) come off completely unknown) on May 07.? Okay for warm soap and water to (unknown) (no (unknown) (unknown) household members: (units (unknown) date) spouse unknown) (unknown) (no (unknown) (unknown) in 6 weeks with (units (unknown) date) Dr. Guerrier with unknown) x-rays on arrival (unknown) (no (unknown) (unknown) not been OOB w/ PT (units (unknown) date) since surgery. unknown) (unknown) (no (unknown) (unknown) p Intramedullary (units (unknown) date) Nailing Femur Left unknown) Caesar Guerrier MD (unknown) (no (unknown) (unknown) run over the (units (u nknown) date) incision and a unknown) shower or sponge bath, however no soaking the (unknown) (no (unknown) (unknown) weeks it is okay (units (unknown) date) to ambulate without unknown) assistance if stable and strong enough.? (unknown) (no (unknown) (unknown) wound.? (units (unkno wn) date) unknown) Result panel 21 (unknown) (no (unknown) (unknown) (no value) (units (unk nown) date) unknown) (unknown) (no (unknown) (unknown) (past 8 hours): (units (unknown) date) unknown) (unknown) (no (unknown) (unknown) -dietary (units (unkno wn) date) consult unknown) (unknown) (no (unknown) (unknown) -encouraged (units (un known) date) cessation unknown) (unknown) (no (unknown) (unknown) -follow up as (units ( unknown) date) outpatient unknown) (unknown) (no (unknown) (unknown) -for now (units (unkno wn) date) ordered for CIWA unknown) protocol (unknown) (no (unknown) (unknown) -gentle IVF (units (un known) date) unknown) (unknown) (no (unknown) (unknown) -keep patient (units ( unknown) date) npo unknown) (unknown) (no (unknown) (unknown) -ordered for (units (u nknown) date) urine osms unknown) (unknown) (no (unknown) (unknown) -ordered mvi, (units ( unknown) date) thiamine, folate unknown) (unknown) (no (unknown) (unknown) -orthopedic (units (un known) date) surgery unknown) consulted (unknown) (no (unknown) (unknown) -pain (units (unkno wn) date) medications unknown) ordered (unknown) (no (unknown) (unknown) -patient (units (unkno wn) date) declined unknown) nicotine patch (unknown) (no (unknown) (unknown) -patient denies (units (unknown) date) any history of unknown) withdrawal (unknown) (no (unknown) (unknown) -patient with (units ( unknown) date) poor appetite, unknown) BMI 16 (unknown) (no (unknown) (unknown) -pelvic (units (unkno wn) date) fracture also unknown) noted on xray (unknown) (no (unknown) (unknown) -possibly (units (unkn own) date) alcohol unknown) contributing (unknown) (no (unknown) (unknown) -possibly (units (unkn own) date) secondary to unknown) intoxication (unknown) (no (unknown) (unknown) -recheck sodium (units (unknown) date) with morning unknown) labs (unknown) (no (unknown) (unknown) -suspect (units (unkno wn) date) secondary to unknown) alcohol abuse (unknown) (no (unknown) (unknown) -suspect (units (unkno wn) date) secondary to unknown) hypovolemia and possible beer potomania given poor oral (unknown) (no (unknown) (unknown) -unclear (units (unkno wn) date) chronicity unknown) (unknown) (no (unknown) (unknown) -wasn't (units (unkno wn) date) forthcoming how unknown) much she drinks, concerning may be significant amount (unknown) (no (unknown) (unknown) [id number] (units (unkno wn) date) unknown) (unknown) (no (unknown) (unknown) 07:46 (units (unkno wn) date) unknown) (unknown) (no (unknown) (unknown) 1. Acute left (units ( unknown) date) hip fracture unknown) secondary to fall (unknown) (no (unknown) (unknown) 04/30/22 06:35 (units (unknown) date) unknown) (unknown) (no (unknown) (unknown) 05/01/22 (units (unkno wn) date) unknown) (unknown) (no (unknown) (unknown) 2. Hyponatremia (units (unknown) date) unknown) (unknown) (no (unknown) (unknown) 3. Macrocytic (units ( unknown) date) anemia unknown) (unknown) (no (unknown) (unknown) 4. Active (units (unkn own) date) smoker unknown) (unknown) (no (unknown) (unknown) 5. Alcohol (units (unk nown) date) intoxication unknown) (unknown) (no (unknown) (unknown) 6. Cachexia, (units (u nknown) date) malnutrition unknown) (unknown) (no (unknown) (unknown) ABD: soft, (units (unk nown) date) nontender, unknown) nondistended, no organomegaly (unknown) (no (unknown) (unknown) Age/Sex: 61 / F (units (unknown) date) unknown) (unknown) (no (unknown) (unknown) Assessment + (units (u nknown) date) Plan narrative: unknown) (unknown) (no (unknown) (unknown) Assessment + (units (u nknown) date) Plan unknown) (unknown) (no (unknown) (unknown) CODE: Full (units (unk nown) date) unknown) (unknown) (no (unknown) (unknown) CV: regular (units (un known) date) rate and rhythm, unknown) no murmurs (unknown) (no (unknown) (unknown) Critical Care (units ( unknown) date) time: unknown) (unknown) (no (unknown) (unknown) : 1960 (units (unknown) date) Acct:[id number] unknown) (unknown) (no (unknown) (unknown) Date of (units (unkno wn) date) Service: unknown) 04/30/22 (unknown) (no (unknown) (unknown) Deep Vein (units (unkn own) date) Thrombosis/Pulmo unknown) nary Embolism Present on Admission: No (unknown) (no (unknown) (unknown) EXT: warm and (units ( unknown) date) well perfused, unknown) left hip tender (unknown) (no (unknown) (unknown) Exam Narrative: (units (unknown) date) unknown) (unknown) (no (unknown) (unknown) Exam (units (unkno wn) date) unknown) (unknown) (no (unknown) (unknown) GEN: no acute (units ( unknown) date) distress unknown) (unknown) (no (unknown) (unknown) HEENT: moist (units (u nknown) date) mucous unknown) membranes, PERRL (unknown) (no (unknown) (unknown) I have utilized (units (unknown) date) all available unknown) resources to reconcile the patient's home (unknown) (no (unknown) (unknown) I spent a total (units (unknown) date) of [] minutes of unknown) critical care time on this patient's care (unknown) (no (unknown) (unknown) [facility] (units (unknown) date) [address] unknown) [place] [address] (unknown) (no (unknown) (unknown) Labs (units (unkno wn) date) unknown) (unknown) (no (unknown) (unknown) NECK: trachea (units ( unknown) date) midline, no JVD unknown) (unknown) (no (unknown) (unknown) NEURO: awake, (units ( unknown) date) alert, oriented, unknown) no focal deficits (unknown) (no (unknown) (unknown) Narrative (units (unkn own) date) unknown) (unknown) (no (unknown) (unknown) Objective (units (unkn own) date) unknown) (unknown) (no (unknown) (unknown) Oxygen Delivery (units (unknown) date) Method Room Air unknown) (unknown) (no (unknown) (unknown) Oxygen Flow (units (un known) date) Rate 0 unknown) (unknown) (no (unknown) (unknown) PFSH (units (unkno wn) date) unknown) (unknown) (no (unknown) (unknown) PULM: clear (units (un known) date) bilaterally, no unknown) wheezes, rhonchi, rales (unknown) (no (unknown) (unknown) Patient: (units (unkno wn) date) Nichol Meng R unknown) MR#: [id number] (unknown) (no (unknown) (unknown) Progress Note (units ( unknown) date) unknown) (unknown) (no (unknown) (unknown) Provider: (units (unkn own) date) Elton Bolton unknown) D.O. (unknown) (no (unknown) (unknown) Proxy: Leno (units ( unknown) date) Duke, unknown) spouse (unknown) (no (unknown) (unknown) Pulse Oximetry (units (unknown) date) 98 unknown) (unknown) (no (unknown) (unknown) Quality (units (unkno wn) date) unknown) (unknown) (no (unknown) (unknown) Result (units (unkno wn) date) Diagrams: unknown) (unknown) (no (unknown) (unknown) Signed By: (units (unk nown) date) unknown) (unknown) (no (unknown) (unknown) Smoking Status: (units (unknown) date) Current every unknown) day smoker (unknown) (no (unknown) (unknown) Social History (units (unknown) date) (Updated unknown) 04/30/22 @ 10:49 by Lydia Paris MD) (unknown) (no (unknown) (unknown) Status post (units (un known) date) appendectomy unknown) (unknown) (no (unknown) (unknown) Status post (units (un known) date) breast unknown) lumpectomy (unknown) (no (unknown) (unknown) Status post (units (un known) date) hysterectomy unknown) (unknown) (no (unknown) (unknown) Surgical (units (unkno wn) date) History unknown) (unknown) (no (unknown) (unknown) Time Spent With (units (unknown) date) Patient unknown) (unknown) (no (unknown) (unknown) VTE (units (unkno wn) date) unknown) (unknown) (no (unknown) (unknown) Vital Signs (units (un known) date) unknown) (unknown) (no (unknown) (unknown) [Embedded Image (units (unknown) date) Not Available] unknown) (unknown) (no (unknown) (unknown) alcohol intake: (units (unknown) date) current unknown) (unknown) (no (unknown) (unknown) household (units (unkn own) date) members: spouse unknown) (unknown) (no (unknown) (unknown) intake and (units (unk nown) date) chronic diarrhea unknown) (unknown) (no (unknown) (unknown) medications (units (un known) date) unknown) (unknown) (no (unknown) (unknown) today; this (units (un known) date) time is unknown) exclusive of procedural time. Result panel 22 (unknown) (no date) (unknown) (unknown) 0 /ul (unkn own) (unknown) (no date) (unknown) (unknown) 0 /ul (unkn own) (unknown) (no date) (unknown) (unknown) 0.0 % (unkn own) (unknown) (no date) (unknown) (unknown) 0.2 % (unkn own) (unknown) (no date) (unknown) (unknown) 10.7 g/dl (unkn own) (unknown) (no date) (unknown) (unknown) 105.6 fl (unkn own) (unknown) (no date) (unknown) (unknown) [id number] /ul (unkn own) (unknown) (no date) (unknown) (unknown) 12.4 x10 3/ul (unkn own) (unknown) (no date) (unknown) (unknown) 12.9 % (unkn own) (unknown) (no date) (unknown) (unknown) 2.99 x10 6/ul (unkn own) (unknown) (no date) (unknown) (unknown) 31.6 % (unkn own) (unknown) (no date) (unknown) (unknown) 321 x10 3/ul (unkn own) (unknown) (no date) (unknown) (unknown) 34.0 % (unkn own) (unknown) (no date) (unknown) (unknown) 35.9 pg (unkn own) (unknown) (no date) (unknown) (unknown) 6.2 % (unkn own) (unknown) (no date) (unknown) (unknown) 6.3 % (unkn own) (unknown) (no date) (unknown) (unknown) 800 /ul (unkn own) (unknown) (no date) (unknown) (unknown) 800 /ul (unkn own) (unknown) (no date) (unknown) (unknown) 87.3 % (unkn own) Result panel 23 (unknown) (no date) (unknown) (unknown) > 60 ml/min (unkn own) (unknown) (no date) (unknown) (unknown) > 60 ml/min (unkn own) (unknown) (no date) (unknown) (unknown) 0.40 mg/dl (unkn own) (unknown) (no date) (unknown) (unknown) 10.0 (units unknown) (unknown) (unknown) (no date) (unknown) (unknown) 122 mmol/l (unkn own) (unknown) (no date) (unknown) (unknown) 212 mg/dl (unkn own) (unknown) (no date) (unknown) (unknown) 212 mg/dl (unkn own) (unknown) (no date) (unknown) (unknown) 25 mmol/l (unkn own) (unknown) (no date) (unknown) (unknown) 3.5 mmol/l (unkn own) (unknown) (no date) (unknown) (unknown) 3.5 mmol/l (unkn own) (unknown) (no date) (unknown) (unknown) 4 mg/dl (unkn own) (unknown) (no date) (unknown) (unknown) 8.2 mg/dl (unkn own) (unknown) (no date) (unknown) (unknown) 90 mmol/l (unkn own) Result panel 24 (unknown) (no date) (unknown) (unknown) 4.7 % (unkn own) (unknown) (no date) (unknown) (unknown) 4.7 % (unkn own) Result panel 25 (unknown) (no (unknown) (unknown) (no value) (units (unk nown) date) unknown) (unknown) (no (unknown) (unknown) (past 8 hours): (units (unknown) date) unknown) (unknown) (no (unknown) (unknown) -dietary (units (unkno wn) date) consult unknown) (unknown) (no (unknown) (unknown) -encouraged (units (un known) date) cessation unknown) (unknown) (no (unknown) (unknown) -follow up as (units ( unknown) date) outpatient unknown) (unknown) (no (unknown) (unknown) -for now (units (unkno wn) date) ordered for CIWA unknown) protocol (unknown) (no (unknown) (unknown) -gentle IVF (units (un known) date) unknown) (unknown) (no (unknown) (unknown) -keep patient (units ( unknown) date) npo unknown) (unknown) (no (unknown) (unknown) -ordered for (units (u nknown) date) urine osms unknown) (unknown) (no (unknown) (unknown) -ordered mvi, (units ( unknown) date) thiamine, folate unknown) (unknown) (no (unknown) (unknown) -orthopedic (units (un known) date) surgery unknown) consulted (unknown) (no (unknown) (unknown) -pain (units (unkno wn) date) medications unknown) ordered (unknown) (no (unknown) (unknown) -patient (units (unkno wn) date) declined unknown) nicotine patch (unknown) (no (unknown) (unknown) -patient denies (units (unknown) date) any history of unknown) withdrawal (unknown) (no (unknown) (unknown) -patient with (units ( unknown) date) poor appetite, unknown) BMI 16 (unknown) (no (unknown) (unknown) -pelvic (units (unkno wn) date) fracture also unknown) noted on xray (unknown) (no (unknown) (unknown) -possibly (units (unkn own) date) alcohol unknown) contributing (unknown) (no (unknown) (unknown) -possibly (units (unkn own) date) secondary to unknown) intoxication (unknown) (no (unknown) (unknown) -recheck sodium (units (unknown) date) with morning unknown) labs (unknown) (no (unknown) (unknown) -suspect (units (unkno wn) date) secondary to unknown) alcohol abuse (unknown) (no (unknown) (unknown) -suspect (units (unkno wn) date) secondary to unknown) hypovolemia and possible beer potomania given poor oral (unknown) (no (unknown) (unknown) -unclear (units (unkno wn) date) chronicity unknown) (unknown) (no (unknown) (unknown) -wasn't (units (unkno wn) date) forthcoming how unknown) much she drinks, concerning may be significant amount (unknown) (no (unknown) (unknown) [id number] (units (unkno wn) date) unknown) (unknown) (no (unknown) (unknown) 07:46 (units (unkno wn) date) unknown) (unknown) (no (unknown) (unknown) 1. Acute left (units ( unknown) date) hip fracture unknown) secondary to fall (unknown) (no (unknown) (unknown) 05/01/22 08:40 (units (unknown) date) unknown) (unknown) (no (unknown) (unknown) 05/01/22 (units (unkno wn) date) unknown) (unknown) (no (unknown) (unknown) 2. Hyponatremia (units (unknown) date) unknown) (unknown) (no (unknown) (unknown) 3. Macrocytic (units ( unknown) date) anemia unknown) (unknown) (no (unknown) (unknown) 4. Active (units (unkn own) date) smoker unknown) (unknown) (no (unknown) (unknown) 5. Alcohol (units (unk nown) date) intoxication unknown) (unknown) (no (unknown) (unknown) 6. Cachexia, (units (u nknown) date) malnutrition unknown) (unknown) (no (unknown) (unknown) ABD: soft, (units (unk nown) date) nontender, unknown) nondistended, no organomegaly (unknown) (no (unknown) (unknown) Age/Sex: 61 / F (units (unknown) date) unknown) (unknown) (no (unknown) (unknown) Assessment + (units (u nknown) date) Plan narrative: unknown) (unknown) (no (unknown) (unknown) Assessment + (units (u nknown) date) Plan unknown) (unknown) (no (unknown) (unknown) CODE: Full (units (unk nown) date) unknown) (unknown) (no (unknown) (unknown) CV: regular (units (un known) date) rate and rhythm, unknown) no murmurs (unknown) (no (unknown) (unknown) Critical Care (units ( unknown) date) time: unknown) (unknown) (no (unknown) (unknown) : 1960 (units (unknown) date) Acct:[id number] unknown) (unknown) (no (unknown) (unknown) Date Patient (units (u nknown) date) Seen: 05/01/22 unknown) (unknown) (no (unknown) (unknown) Date of (units (unkno wn) date) Service: unknown) 04/30/22 (unknown) (no (unknown) (unknown) Deep Vein (units (unkn own) date) Thrombosis/Pulmo unknown) nary Embolism Present on Admission: No (unknown) (no (unknown) (unknown) EXT: warm and (units ( unknown) date) well perfused, unknown) left hip tender (unknown) (no (unknown) (unknown) Exam Narrative: (units (unknown) date) unknown) (unknown) (no (unknown) (unknown) Exam (units (unkno wn) date) unknown) (unknown) (no (unknown) (unknown) GEN: no acute (units ( unknown) date) distress unknown) (unknown) (no (unknown) (unknown) HEENT: moist (units (u nknown) date) mucous unknown) membranes, PERRL (unknown) (no (unknown) (unknown) I have utilized (units (unknown) date) all available unknown) resources to reconcile the patient's home (unknown) (no (unknown) (unknown) I spent a total (units (unknown) date) of [] minutes of unknown) critical care time on this patient's care (unknown) (no (unknown) (unknown) [facility] (units (unknown) date) [address] unknown) [place] [address] (unknown) (no (unknown) (unknown) Labs (units (unkno wn) date) unknown) (unknown) (no (unknown) (unknown) NECK: trachea (units ( unknown) date) midline, no JVD unknown) (unknown) (no (unknown) (unknown) NEURO: awake, (units ( unknown) date) alert, oriented, unknown) no focal deficits (unknown) (no (unknown) (unknown) Narrative (units (unkn own) date) unknown) (unknown) (no (unknown) (unknown) Objective (units (unkn own) date) unknown) (unknown) (no (unknown) (unknown) Oxygen Delivery (units (unknown) date) Method Room Air unknown) (unknown) (no (unknown) (unknown) Oxygen Flow (units (un known) date) Rate 0 unknown) (unknown) (no (unknown) (unknown) PFSH (units (unkno wn) date) unknown) (unknown) (no (unknown) (unknown) PULM: clear (units (un known) date) bilaterally, no unknown) wheezes, rhonchi, rales (unknown) (no (unknown) (unknown) Patient: (units (unkno wn) date) Nichol Meng R unknown) MR#: [id number] (unknown) (no (unknown) (unknown) Progress Note (units ( unknown) date) unknown) (unknown) (no (unknown) (unknown) Provider: (units (unkn own) date) Elton Bolton unknown) D.OJames (unknown) (no (unknown) (unknown) Proxy: Leno (units ( unknown) date) Duke, unknown) spouse (unknown) (no (unknown) (unknown) Pulse Oximetry (units (unknown) date) 98 unknown) (unknown) (no (unknown) (unknown) Quality (units (unkno wn) date) unknown) (unknown) (no (unknown) (unknown) Result (units (unkno wn) date) Diagrams: unknown) (unknown) (no (unknown) (unknown) Signed By: (units (unk nown) date) unknown) (unknown) (no (unknown) (unknown) Smoking Status: (units (unknown) date) Current every unknown) day smoker (unknown) (no (unknown) (unknown) Social History (units (unknown) date) (Updated unknown) 04/30/22 @ 10:49 by Lydia Paris MD) (unknown) (no (unknown) (unknown) Status post (units (un known) date) appendectomy unknown) (unknown) (no (unknown) (unknown) Status post (units (un known) date) breast unknown) lumpectomy (unknown) (no (unknown) (unknown) Status post (units (un known) date) hysterectomy unknown) (unknown) (no (unknown) (unknown) Subjective (units (unk nown) date) unknown) (unknown) (no (unknown) (unknown) Surgical (units (unkno wn) date) History unknown) (unknown) (no (unknown) (unknown) Time Patient (units (u nknown) date) Seen: 09:00 unknown) (unknown) (no (unknown) (unknown) Time Spent With (units (unknown) date) Patient unknown) (unknown) (no (unknown) (unknown) VTE (units (unkno wn) date) unknown) (unknown) (no (unknown) (unknown) Vital Signs (units (un known) date) unknown) (unknown) (no (unknown) (unknown) [Embedded Image (units (unknown) date) Not Available] unknown) (unknown) (no (unknown) (unknown) alcohol intake: (units (unknown) date) current unknown) (unknown) (no (unknown) (unknown) household (units (unkn own) date) members: spouse unknown) (unknown) (no (unknown) (unknown) intake and (units (unk nown) date) chronic diarrhea unknown) (unknown) (no (unknown) (unknown) medications (units (un known) date) unknown) (unknown) (no (unknown) (unknown) today; this (units (un known) date) time is unknown) exclusive of procedural time. Result panel 26 (unknown) (no (unknown) (unknown) (no value) (units (unk nown) date) unknown) (unknown) (no (unknown) (unknown) (past 8 hours): (units (unknown) date) unknown) (unknown) (no (unknown) (unknown) -PT/OT eval (units (un known) date) unknown) (unknown) (no (unknown) (unknown) -dietary (units (unkno wn) date) consult unknown) (unknown) (no (unknown) (unknown) -encouraged (units (un known) date) cessation unknown) (unknown) (no (unknown) (unknown) -follow up as (units ( unknown) date) outpatient unknown) (unknown) (no (unknown) (unknown) -for now (units (unkno wn) date) ordered for CIWA unknown) protocol (unknown) (no (unknown) (unknown) -monitor sodium (units (unknown) date) with morning unknown) labs (unknown) (no (unknown) (unknown) -no improvement (units (unknown) date) with gentle IVF unknown) (unknown) (no (unknown) (unknown) -ordered mvi, (units ( unknown) date) thiamine, folate unknown) (unknown) (no (unknown) (unknown) -orthopedic (units (un known) date) surgery unknown) consulted and repaired hip on 04/30 (unknown) (no (unknown) (unknown) -pain (units (unkno wn) date) medications unknown) ordered (unknown) (no (unknown) (unknown) -patient (units (unkno wn) date) declined unknown) nicotine patch (unknown) (no (unknown) (unknown) -patient denies (units (unknown) date) any history of unknown) withdrawal (unknown) (no (unknown) (unknown) -patient with (units ( unknown) date) poor appetite, unknown) BMI 16 (unknown) (no (unknown) (unknown) -pelvic (units (unkno wn) date) fracture also unknown) noted on xray (unknown) (no (unknown) (unknown) -possibly (units (unkn own) date) alcohol unknown) contributing (unknown) (no (unknown) (unknown) -possibly (units (unkn own) date) secondary to unknown) intoxication (unknown) (no (unknown) (unknown) -suspect SIADH, (units (unknown) date) will fluid unknown) restrict and give salt tabs (unknown) (no (unknown) (unknown) -suspect (units (unkno wn) date) secondary to unknown) alcohol abuse (unknown) (no (unknown) (unknown) -suspect (units (unkno wn) date) secondary to unknown) hypovolemia and possible beer potomania given poor oral (unknown) (no (unknown) (unknown) -unclear (units (unkno wn) date) chronicity unknown) (unknown) (no (unknown) (unknown) -urine Osm (units (unk nown) date) still pending unknown) (unknown) (no (unknown) (unknown) -wasn't (units (unkno wn) date) forthcoming how unknown) much she drinks, concerning may be significant amount (unknown) (no (unknown) (unknown) [id number] (units (unkno wn) date) unknown) (unknown) (no (unknown) (unknown) 07:46 (units (unkno wn) date) unknown) (unknown) (no (unknown) (unknown) 1. Acute left (units ( unknown) date) hip fracture unknown) secondary to fall (unknown) (no (unknown) (unknown) 05/01/22 08:40 (units (unknown) date) unknown) (unknown) (no (unknown) (unknown) 05/01/22 1430 (units ( unknown) date) unknown) (unknown) (no (unknown) (unknown) 05/01/22 (units (unkno wn) date) unknown) (unknown) (no (unknown) (unknown) 2. Hyponatremia (units (unknown) date) unknown) (unknown) (no (unknown) (unknown) 3. Macrocytic (units ( unknown) date) anemia unknown) (unknown) (no (unknown) (unknown) 4. Active (units (unkn own) date) smoker unknown) (unknown) (no (unknown) (unknown) 5. Alcohol (units (unk nown) date) intoxication unknown) (unknown) (no (unknown) (unknown) 6. Cachexia, (units (u nknown) date) malnutrition unknown) (unknown) (no (unknown) (unknown) ABD: soft, (units (unk nown) date) nontender, unknown) nondistended, no organomegaly (unknown) (no (unknown) (unknown) Age/Sex: 61 / F (units (unknown) date) unknown) (unknown) (no (unknown) (unknown) Assessment + (units (u nknown) date) Plan narrative: unknown) (unknown) (no (unknown) (unknown) Assessment + (units (u nknown) date) Plan unknown) (unknown) (no (unknown) (unknown) CODE: Full (units (unk nown) date) unknown) (unknown) (no (unknown) (unknown) CV: regular (units (un known) date) rate and rhythm, unknown) no murmurs (unknown) (no (unknown) (unknown) Critical Care (units ( unknown) date) time: unknown) (unknown) (no (unknown) (unknown) : 1960 (units (unknown) date) Acct:[id number] unknown) (unknown) (no (unknown) (unknown) Date Patient (units (u nknown) date) Seen: 05/01/22 unknown) (unknown) (no (unknown) (unknown) Date of (units (unkno wn) date) Service: unknown) 04/30/22 (unknown) (no (unknown) (unknown) Deep Vein (units (unkn own) date) Thrombosis/Pulmo unknown) nary Embolism Present on Admission: No (unknown) (no (unknown) (unknown) Dispo: 1-2 days (units (unknown) date) pending PT/OT unknown) eval. (unknown) (no (unknown) (unknown) EXT: warm and (units ( unknown) date) well perfused, unknown) left hip tender (unknown) (no (unknown) (unknown) Exam Narrative: (units (unknown) date) unknown) (unknown) (no (unknown) (unknown) Exam (units (unkno wn) date) unknown) (unknown) (no (unknown) (unknown) GEN: no acute (units ( unknown) date) distress, unknown) withdrawn and somber (unknown) (no (unknown) (unknown) HEENT: moist (units (u nknown) date) mucous unknown) membranes, PERRL (unknown) (no (unknown) (unknown) I have utilized (units (unknown) date) all available unknown) resources to reconcile the patient's home (unknown) (no (unknown) (unknown) I spent a total (units (unknown) date) of [] minutes of unknown) critical care time on this patient's care (unknown) (no (unknown) (unknown) Interval (units (unkno wn) date) history: unknown) (unknown) (no (unknown) (unknown) [facility] (units (unknown) date) [address] unknown) [place] [address] (unknown) (no (unknown) (unknown) Labs (units (unkno wn) date) unknown) (unknown) (no (unknown) (unknown) NECK: trachea (units ( unknown) date) midline, no JVD unknown) (unknown) (no (unknown) (unknown) NEURO: awake, (units ( unknown) date) alert, oriented, unknown) no focal deficits (unknown) (no (unknown) (unknown) Narrative (units (unkn own) date) unknown) (unknown) (no (unknown) (unknown) Objective (units (unkn own) date) unknown) (unknown) (no (unknown) (unknown) Oxygen Delivery (units (unknown) date) Method Room Air unknown) (unknown) (no (unknown) (unknown) Oxygen Flow (units (un known) date) Rate 0 unknown) (unknown) (no (unknown) (unknown) PFSH (units (unkno wn) date) unknown) (unknown) (no (unknown) (unknown) PULM: clear (units (un known) date) bilaterally, no unknown) wheezes, rhonchi, rales (unknown) (no (unknown) (unknown) Patient grieving (units (unknown) date) over the unknown) of her last night. She just doesn't want (unknown) (no (unknown) (unknown) Patient: (units (unkno wn) date) Nichol Meng unknown) MR#: [id number] (unknown) (no (unknown) (unknown) Progress Note (units ( unknown) date) unknown) (unknown) (no (unknown) (unknown) Provider: (units (unkn own) date) Elton Bolton unknown) D.O. (unknown) (no (unknown) (unknown) Proxy: Leno (units ( unknown) date) beryl Meng) spouse (unknown) (no (unknown) (unknown) Pulse Oximetry (units (unknown) date) 98 unknown) (unknown) (no (unknown) (unknown) Quality (units (unkno wn) date) unknown) (unknown) (no (unknown) (unknown) Result (units (unkno wn) date) Diagrams: unknown) (unknown) (no (unknown) (unknown) Signed (units (unkno wn) date) By:<Electronical unknown) ly signed by Elton Bolton D.O.> (unknown) (no (unknown) (unknown) Smoking Status: (units (unknown) date) Current every unknown) day smoker (unknown) (no (unknown) (unknown) Social History (units (unknown) date) (Updated unknown) 04/30/22 @ 10:49 by Lydia Paris MD) (unknown) (no (unknown) (unknown) Status post (units (un known) date) appendectomy unknown) (unknown) (no (unknown) (unknown) Status post (units (un known) date) breast unknown) lumpectomy (unknown) (no (unknown) (unknown) Status post (units (un known) date) hysterectomy unknown) (unknown) (no (unknown) (unknown) Subjective (units (unk nown) date) unknown) (unknown) (no (unknown) (unknown) Surgical (units (unkno wn) date) History unknown) (unknown) (no (unknown) (unknown) Time Patient (units (u nknown) date) Seen: 09:00 unknown) (unknown) (no (unknown) (unknown) Time Spent With (units (unknown) date) Patient unknown) (unknown) (no (unknown) (unknown) VTE (units (unkno wn) date) unknown) (unknown) (no (unknown) (unknown) Vital Signs (units (un known) date) unknown) (unknown) (no (unknown) (unknown) [Embedded Image (units (unknown) date) Not Available] unknown) (unknown) (no (unknown) (unknown) alcohol intake: (units (unknown) date) current unknown) (unknown) (no (unknown) (unknown) household (units (unkn own) date) members: spouse unknown) (unknown) (no (unknown) (unknown) intake and (units (unk nown) date) chronic diarrhea unknown) (unknown) (no (unknown) (unknown) medications (units (un known) date) unknown) (unknown) (no (unknown) (unknown) to be bothered. (units (unknown) date) Says pain is unknown) currently manageable. (unknown) (no (unknown) (unknown) today; this (units (un known) date) time is unknown) exclusive of procedural time. Result panel 27 (unknown) (no date) (unknown) (unknown) 188 mosmol/kg (unk nown) (unknown) (no date) (unknown) (unknown) 188 mosmol/kg (unk nown) Result panel 28 (unknown) (no date) (unknown) (unknown) > 60 ml/min (unkn own) (unknown) (no date) (unknown) (unknown) > 60 ml/min (unkn own) (unknown) (no date) (unknown) (unknown) 0.41 mg/dl (unkn own) (unknown) (no date) (unknown) (unknown) 121 mmol/l (unkn own) (unknown) (no date) (unknown) (unknown) 130 mg/dl (unkn own) (unknown) (no date) (unknown) (unknown) 130 mg/dl (unkn own) (unknown) (no date) (unknown) (unknown) 25 mmol/l (unkn own) (unknown) (no date) (unknown) (unknown) 3 mg/dl (unkn own) (unknown) (no date) (unknown) (unknown) 4.0 mmol/l (unkn own) (unknown) (no date) (unknown) (unknown) 7.3 (units unknown) (unknown) (unknown) (no date) (unknown) (unknown) 8.4 mg/dl (unkn own) (unknown) (no date) (unknown) (unknown) 90 mmol/l (unkn own) Result panel 29 (unknown) (no date) (unknown) (unknown) > 60 ml/min (unkn own) (unknown) (no date) (unknown) (unknown) > 60 ml/min (unkn own) (unknown) (no date) (unknown) (unknown) 0.56 mg/dl (unkn own) (unknown) (no date) (unknown) (unknown) 107 mg/dl (unkn own) (unknown) (no date) (unknown) (unknown) 107 mg/dl (unkn own) (unknown) (no date) (unknown) (unknown) 127 mmol/l (unkn own) (unknown) (no date) (unknown) (unknown) 27 mmol/l (unkn own) (unknown) (no date) (unknown) (unknown) 3 mg/dl (unkn own) (unknown) (no date) (unknown) (unknown) 3.9 mmol/l (unkn own) (unknown) (no date) (unknown) (unknown) 5.4 (units unknown) (unknown) (unknown) (no date) (unknown) (unknown) 7.8 mg/dl (unkn own) (unknown) (no date) (unknown) (unknown) 97 mmol/l (unkn own) Result panel 30 (unknown) (no date) (unknown) (unknown) 0 /ul (unkn own) (unknown) (no date) (unknown) (unknown) 0 /ul (unkn own) (unknown) (no date) (unknown) (unknown) 0.2 % (unkn own) (unknown) (no date) (unknown) (unknown) 0.3 % (unkn own) (unknown) (no date) (unknown) (unknown) 104.6 fl (unkn own) (unknown) (no date) (unknown) (unknown) 11.0 % (unkn own) (unknown) (no date) (unknown) (unknown) 1100 /ul (unkn own) (unknown) (no date) (unknown) (unknown) 13.1 % (unkn own) (unknown) (no date) (unknown) (unknown) 17.2 % (unkn own) (unknown) (no date) (unknown) (unknown) 1700 /ul (unkn own) (unknown) (no date) (unknown) (unknown) 2.47 x10 6/ul (unkn own) (unknown) (no date) (unknown) (unknown) 25.8 % (unkn own) (unknown) (no date) (unknown) (unknown) 282 x10 3/ul (unkn own) (unknown) (no date) (unknown) (unknown) 33.8 % (unkn own) (unknown) (no date) (unknown) (unknown) 35.4 pg (unkn own) (unknown) (no date) (unknown) (unknown) 71.3 % (unkn own) (unknown) (no date) (unknown) (unknown) 7100 /ul (unkn own) (unknown) (no date) (unknown) (unknown) 8.7 g/dl (unkn own) (unknown) (no date) (unknown) (unknown) 9.9 x10 3/ul (unkn own) Result panel 31 (unknown) (no date) (unknown) (unknown) > 60 ml/min (unkn own) (unknown) (no date) (unknown) (unknown) > 60 ml/min (unkn own) (unknown) (no date) (unknown) (unknown) 0.41 mg/dl (unkn own) (unknown) (no date) (unknown) (unknown) 130 mmol/l (unkn own) (unknown) (no date) (unknown) (unknown) 2 mg/dl (unkn own) (unknown) (no date) (unknown) (unknown) 3.4 mmol/l (unkn own) (unknown) (no date) (unknown) (unknown) 32 mmol/l (unkn own) (unknown) (no date) (unknown) (unknown) 4.9 (units unknown) (unknown) (unknown) (no date) (unknown) (unknown) 7.8 mg/dl (unkn own) (unknown) (no date) (unknown) (unknown) 77 mg/dl (unkn own) (unknown) (no date) (unknown) (unknown) 77 mg/dl (unkn own) (unknown) (no date) (unknown) (unknown) 97 mmol/l (unkn own) Result panel 32 (unknown) (no (unknown) (unknown) (no value) (units (unk nown) date) unknown) (unknown) (no (unknown) (unknown) (1) Closed (units (unk nown) date) fracture of left unknown) hip: (unknown) (no (unknown) (unknown) (past 8 hours): (units (unknown) date) unknown) (unknown) (no (unknown) (unknown) [id number] (units (unkno wn) date) unknown) (unknown) (no (unknown) (unknown) 03:50 14:30 (units (un known) date) 20:00 unknown) (unknown) (no (unknown) (unknown) 06:45 06:45 (units (un known) date) unknown) (unknown) (no (unknown) (unknown) 09:31 (units (unkno wn) date) unknown) (unknown) (no (unknown) (unknown) 1) Weightbearing (units (unknown) date) as tolerated with unknown) crutches or walker for 4 weeks.? After 4 (unknown) (no (unknown) (unknown) 04/30/22 (units (unkno wn) date) 05/01/22 05/01/22 unknown) (unknown) (no (unknown) (unknown) 05/02/22 06:45 (units (unknown) date) unknown) (unknown) (no (unknown) (unknown) 05/02/22 (units (unkno wn) date) 05/02/22 unknown) (unknown) (no (unknown) (unknown) 05/02/22 1119 (units ( unknown) date) unknown) (unknown) (no (unknown) (unknown) 05/02/22 (units (unkno wn) date) unknown) (unknown) (no (unknown) (unknown) 2) VTE (units (unkno wn) date) prophylaxis for 4 unknown) weeks; she has been started on Lovenox 40 mg daily, (unknown) (no (unknown) (unknown) 3) Okay to (units (unk nown) date) change dressings unknown) to clean dry dressings if needed on May 04.? Okay (unknown) (no (unknown) (unknown) 4) Follow-up (units (u nknown) date) between May 11 unknown) and with a PA for staple removal, and follow-up (unknown) (no (unknown) (unknown) 4/5 strength in (units (unknown) date) hip flexors, unknown) quadriceps, hamstrings on left; 5/5 DF, PF, EHL. (unknown) (no (unknown) (unknown) Actual Procedure (units (unknown) date) Side Surgeon unknown) (unknown) (no (unknown) (unknown) Age/Sex: 61 / F (units (unknown) date) unknown) (unknown) (no (unknown) (unknown) Assessment + (units (u nknown) date) Plan Post-op unknown) (unknown) (no (unknown) (unknown) Assessment and (units (unknown) date) Plan narrative: unknown) (unknown) (no (unknown) (unknown) Assessment and (units (unknown) date) plan unknown) (unknown) (no (unknown) (unknown) BUN 2 L (units (unkno wn) date) unknown) (unknown) (no (unknown) (unknown) BUN 3 L 3 L (units (un known) date) unknown) (unknown) (no (unknown) (unknown) BUN/Creatinine (units (unknown) date) Ratio 4.9 L unknown) (unknown) (no (unknown) (unknown) BUN/Creatinine (units (unknown) date) Ratio 7.3 5.4 L unknown) (unknown) (no (unknown) (unknown) Baso # (Auto) 0 (units (unknown) date) unknown) (unknown) (no (unknown) (unknown) Baso # (Auto) (units ( unknown) date) unknown) (unknown) (no (unknown) (unknown) Baso % (Auto) (units ( unknown) date) 0.3 unknown) (unknown) (no (unknown) (unknown) Baso % (Auto) (units ( unknown) date) unknown) (unknown) (no (unknown) (unknown) Blood Pressure (units (unknown) date) 117/69 unknown) (unknown) (no (unknown) (unknown) Calcium 7.8 L (units ( unknown) date) unknown) (unknown) (no (unknown) (unknown) Calcium 8.4 7.8 (units (unknown) date) L unknown) (unknown) (no (unknown) (unknown) Carbon Dioxide (units (unknown) date) 25 27 unknown) (unknown) (no (unknown) (unknown) Carbon Dioxide (units (unknown) date) 32 unknown) (unknown) (no (unknown) (unknown) Chloride 90 L 97 (units (unknown) date) L unknown) (unknown) (no (unknown) (unknown) Chloride 97 L (units ( unknown) date) unknown) (unknown) (no (unknown) (unknown) Creatinine 0.41 (units (unknown) date) L 0.56 unknown) (unknown) (no (unknown) (unknown) Creatinine 0.41 (units (unknown) date) L unknown) (unknown) (no (unknown) (unknown) : 1960 (units (unknown) date) Acct:[id number] unknown) (unknown) (no (unknown) (unknown) Date Patient (units (u nknown) date) Seen: 05/02/22 unknown) (unknown) (no (unknown) (unknown) Date of Service: (units (unknown) date) 04/30/22 unknown) (unknown) (no (unknown) (unknown) Deep Vein (units (unkn own) date) Thrombosis/Pulmon unknown) brijesh Embolism Present on Admission: No (unknown) (no (unknown) (unknown) Eos # (Auto) 0 (units (unknown) date) unknown) (unknown) (no (unknown) (unknown) Eos # (Auto) (units (u nknown) date) unknown) (unknown) (no (unknown) (unknown) Eos % (Auto) 0.2 (units (unknown) date) L unknown) (unknown) (no (unknown) (unknown) Eos % (Auto) (units (u nknown) date) unknown) (unknown) (no (unknown) (unknown) Estimated GFR > (units (unknown) date) 60 > 60 unknown) (unknown) (no (unknown) (unknown) Estimated GFR > (units (unknown) date) 60 unknown) (unknown) (no (unknown) (unknown) Exam Narrative: (units (unknown) date) unknown) (unknown) (no (unknown) (unknown) Exam (units (unkno wn) date) unknown) (unknown) (no (unknown) (unknown) From an (units (unkno wn) date) orthopedic unknown) standpoint, she can be discharged if she has appropriate help (unknown) (no (unknown) (unknown) Glucose 130 H (units ( unknown) date) 107 unknown) (unknown) (no (unknown) (unknown) Glucose 77 L (units (u nknown) date) unknown) (unknown) (no (unknown) (unknown) Hct 25.8 L (units (unk nown) date) unknown) (unknown) (no (unknown) (unknown) Hct (units (unkno wn) date) unknown) (unknown) (no (unknown) (unknown) Hgb 8.7 L (units (unkn own) date) unknown) (unknown) (no (unknown) (unknown) Hgb (units (unkno wn) date) unknown) (unknown) (no (unknown) (unknown) Interval (units (unkno wn) date) history: unknown) (unknown) (no (unknown) (unknown) [facility] (units (unknown) date) [address]) [place] [address] (unknown) (no (unknown) (unknown) Laboratory (units (unk nown) date) Results - last 24 unknown) hr (unknown) (no (unknown) (unknown) Labs (units (unkno wn) date) unknown) (unknown) (no (unknown) (unknown) Labs: (units (unkno wn) date) unknown) (unknown) (no (unknown) (unknown) Lymph # (Auto) (units (unknown) date) 1700 unknown) (unknown) (no (unknown) (unknown) Lymph # (Auto) (units (unknown) date) unknown) (unknown) (no (unknown) (unknown) Lymph % (Auto) (units (unknown) date) 17.2 L unknown) (unknown) (no (unknown) (unknown) Lymph % (Auto) (units (unknown) date) unknown) (unknown) (no (unknown) (unknown) MCH 35.4 H (units (unk nown) date) unknown) (unknown) (no (unknown) (unknown) MCH (units (unkno wn) date) unknown) (unknown) (no (unknown) (unknown) MCHC 33.8 (units (unkn own) date) unknown) (unknown) (no (unknown) (unknown) MCHC (units (unkno wn) date) unknown) (unknown) (no (unknown) (unknown) MCV 104.6 H (units (un known) date) unknown) (unknown) (no (unknown) (unknown) MCV (units (unkno wn) date) unknown) (unknown) (no (unknown) (unknown) [place] # (Auto) (units ( unknown) date) 1100 H unknown) (unknown) (no (unknown) (unknown) [place] # (Auto) (units ( unknown) date) unknown) (unknown) (no (unknown) (unknown) [place] % (Auto) (units ( unknown) date) 11.0 unknown) (unknown) (no (unknown) (unknown) [place] % (Auto) (units ( unknown) date) unknown) (unknown) (no (unknown) (unknown) Narrative (units (unkn own) date) unknown) (unknown) (no (unknown) (unknown) Neut # (Auto) (units ( unknown) date) 7100 H unknown) (unknown) (no (unknown) (unknown) Neut # (Auto) (units ( unknown) date) unknown) (unknown) (no (unknown) (unknown) Neut % (Auto) (units ( unknown) date) 71.3 unknown) (unknown) (no (unknown) (unknown) Neut % (Auto) (units ( unknown) date) unknown) (unknown) (no (unknown) (unknown) Objective (units (unkn own) date) unknown) (unknown) (no (unknown) (unknown) Operation Date: (units (unknown) date) 04/30/22 15:00 unknown) (unknown) (no (unknown) (unknown) Oxygen Delivery (units (unknown) date) Method Room Air unknown) (unknown) (no (unknown) (unknown) Oxygen Flow Rate (units (unknown) date) 0 unknown) (unknown) (no (unknown) (unknown) PFSH (units (unkno wn) date) unknown) (unknown) (no (unknown) (unknown) Patient: (units (unkno wn) date) Nichol Meng R unknown) MR#: [id number] (unknown) (no (unknown) (unknown) Plt Count 282 (units ( unknown) date) unknown) (unknown) (no (unknown) (unknown) Plt Count (units (unkn own) date) unknown) (unknown) (no (unknown) (unknown) Postoperative (units ( unknown) date) day: 2 unknown) (unknown) (no (unknown) (unknown) Postoperative (units ( unknown) date) unknown) (unknown) (no (unknown) (unknown) Potassium 3.4 (units ( unknown) date) unknown) (unknown) (no (unknown) (unknown) Potassium 4.0 (units ( unknown) date) 3.9 unknown) (unknown) (no (unknown) (unknown) Procedures (units (unk nown) date) unknown) (unknown) (no (unknown) (unknown) Procedures: (units (un known) date) unknown) (unknown) (no (unknown) (unknown) Progress Note (units ( unknown) date) unknown) (unknown) (no (unknown) (unknown) Provider: (units (unkn own) date) Cary Stahl P.A-C unknown) (unknown) (no (unknown) (unknown) Pt sitting up in (units (unknown) date) bed, on phone. unknown) She is still grieving the loss of her (unknown) (no (unknown) (unknown) Pulse Oximetry (units (unknown) date) 95 unknown) (unknown) (no (unknown) (unknown) Pulse Rate 94 H (units (unknown) date) unknown) (unknown) (no (unknown) (unknown) Quality (units (unkno wn) date) unknown) (unknown) (no (unknown) (unknown) RBC 2.47 L (units (unk nown) date) unknown) (unknown) (no (unknown) (unknown) RBC (units (unkno wn) date) unknown) (unknown) (no (unknown) (unknown) RDW 13.1 (units (unkno wn) date) unknown) (unknown) (no (unknown) (unknown) RDW (units (unkno wn) date) unknown) (unknown) (no (unknown) (unknown) Respiratory Rate (units (unknown) date) 16 unknown) (unknown) (no (unknown) (unknown) Result Diagrams: (units (unknown) date) unknown) (unknown) (no (unknown) (unknown) Sensation to (units (u nknown) date) light touch unknown) intact throughout LLE. [place] soft, compressible, (unknown) (no (unknown) (unknown) Signed (units (unkno wn) date) By:<Electronicall unknown) y signed by Cary Stahl> (unknown) (no (unknown) (unknown) Smoking Status: (units (unknown) date) Current every day unknown) smoker (unknown) (no (unknown) (unknown) Social History (units (unknown) date) (Updated 04/30/22 unknown) @ 10:49 by Lydia Paris MD) (unknown) (no (unknown) (unknown) Sodium 121 L 127 (units (unknown) date) L unknown) (unknown) (no (unknown) (unknown) Sodium 130 L (units (u nknown) date) unknown) (unknown) (no (unknown) (unknown) Status post (units (un known) date) appendectomy unknown) (unknown) (no (unknown) (unknown) Status post (units (un known) date) breast lumpectomy unknown) (unknown) (no (unknown) (unknown) Status post (units (un known) date) hysterectomy unknown) (unknown) (no (unknown) (unknown) Subjective (units (unk nown) date) unknown) (unknown) (no (unknown) (unknown) Surgical History (units (unknown) date) (Reviewed unknown) 04/30/22 @ 05:46 by Tyree Hickman MD) (unknown) (no (unknown) (unknown) Temperature 97.5 (units (unknown) date) F L unknown) (unknown) (no (unknown) (unknown) Time Patient (units (u nknown) date) Seen: 11:16 unknown) (unknown) (no (unknown) (unknown) Urine Osmolality (units (unknown) date) 188 unknown) (unknown) (no (unknown) (unknown) Urine Osmolality (units (unknown) date) unknown) (unknown) (no (unknown) (unknown) VTE (units (unkno wn) date) unknown) (unknown) (no (unknown) (unknown) Vital Signs (units (un known) date) unknown) (unknown) (no (unknown) (unknown) WBC 9.9 (units (unkno wn) date) unknown) (unknown) (no (unknown) (unknown) WBC (units (unkno wn) date) unknown) (unknown) (no (unknown) (unknown) [Embedded Image (units (unknown) date) Not Available] unknown) (unknown) (no (unknown) (unknown) alcohol intake: (units (unknown) date) current unknown) (unknown) (no (unknown) (unknown) at home. (units (unkno wn) date) unknown) (unknown) (no (unknown) (unknown) continue through (units (unknown) date) Nov 3.? unknown) (unknown) (no (unknown) (unknown) early yesterday (units (unknown) date) morning and is unknown) trying to make plans for help so she can go home. (unknown) (no (unknown) (unknown) for dressings to (units (unknown) date) come off unknown) completely on May 07.? Okay for warm soap and water to (unknown) (no (unknown) (unknown) household (units (unkn own) date) members: none unknown) (unknown) (no (unknown) (unknown) in 6 weeks with (units (unknown) date) Dr. Guerrier with unknown) x-rays on arrival (unknown) (no (unknown) (unknown) nontender and (units ( unknown) date) without palpable unknown) cords or masses. (unknown) (no (unknown) (unknown) p Intramedullary (units (unknown) date) Nailing Femur unknown) Left Caesar Guerrier MD (unknown) (no (unknown) (unknown) run over the (units (u nknown) date) incision and a unknown) shower or sponge bath, however no soaking the (unknown) (no (unknown) (unknown) weeks it is okay (units (unknown) date) to ambulate unknown) without assistance if stable and strong enough.? (unknown) (no (unknown) (unknown) wound.? (units (unkno wn) date) unknown) Result panel 33 (unknown) (no (unknown) (unknown) (no value) (units (unk nown) date) unknown) (unknown) (no (unknown) (unknown) (past 8 hours): (units (unknown) date) unknown) (unknown) (no (unknown) (unknown) [id number] (units (unkno wn) date) unknown) (unknown) (no (unknown) (unknown) 1 mg PO DAILY Qty: (units (unknown) date) 30 0RF unknown) (unknown) (no (unknown) (unknown) 1 tab PO DAILY Qty: (unit s (unknown) date) 30 0RF unknown) (unknown) (no (unknown) (unknown) 1. Left hip (units (un known) date) fracture s/p repair unknown) (unknown) (no (unknown) (unknown) 04/30/22 00:40 (units (unknown) date) unknown) (unknown) (no (unknown) (unknown) 04/30/22 02:20 (units (unknown) date) unknown) (unknown) (no (unknown) (unknown) 04/30/22 03:25 (units (unknown) date) unknown) (unknown) (no (unknown) (unknown) 04/30/22 11:01 (units (unknown) date) unknown) (unknown) (no (unknown) (unknown) 05/01/22 05/02/22 (units (unknown) date) 05/02/22 unknown) (unknown) (no (unknown) (unknown) 05/01/22 12:16 (units (unknown) date) unknown) (unknown) (no (unknown) (unknown) 05/02/22 06:45 (units (unknown) date) unknown) (unknown) (no (unknown) (unknown) 05/02/22 14:04 (units (unknown) date) unknown) (unknown) (no (unknown) (unknown) 05/02/22 1828 (units ( unknown) date) unknown) (unknown) (no (unknown) (unknown) 100 mg PO DAILY (units (unknown) date) Qty: 30 0RF unknown) (unknown) (no (unknown) (unknown) 17 g PO DAILY PRN (units (unknown) date) (Reason: unknown) Constipation) Qty: 30 0RF (unknown) (no (unknown) (unknown) 180. UA negative. (units (unknown) date) Chest xray with unknown) large lung volumes. Hip xray with left (unknown) (no (unknown) (unknown) 2. Alcohol (units (unk nown) date) intoxication unknown) (unknown) (no (unknown) (unknown) 20:00 06:45 06:45 (units (unknown) date) unknown) (unknown) (no (unknown) (unknown) 3. Hyponatremia (units (unknown) date) unknown) (unknown) (no (unknown) (unknown) 4. Macrocytic (units ( unknown) date) anemia unknown) (unknown) (no (unknown) (unknown) 40 mg SUBCUT DAILY (units (unknown) date) 28 Days Qty: 12 0RF unknown) (unknown) (no (unknown) (unknown) 5 mg PO Q4HR PRN (units (unknown) date) (Reason: Pain, unknown) Moderate (4-6)) Qty: 30 0RF (unknown) (no (unknown) (unknown) 5. Active smoker (units (unknown) date) unknown) (unknown) (no (unknown) (unknown) 6. Severe protein (units (unknown) date) calorie malnutrition unknown) (unknown) (no (unknown) (unknown) 650 mg PO Q6HR PRN (units (unknown) date) (Reason: Fever/Mild unknown) Pain (1-3)) Qty: 30 0RF (unknown) (no (unknown) (unknown) 8.6 mg PO BID PRN (units (unknown) date) (Reason: unknown) Constipation) Qty: 30 0RF (unknown) (no (unknown) (unknown) ABD: soft, (units (unk nown) date) nontender, unknown) nondistended, no organomegaly (unknown) (no (unknown) (unknown) Age/Sex: 61 / F (units (unknown) date) unknown) (unknown) (no (unknown) (unknown) BUN 3 L 2 L (units (un known) date) unknown) (unknown) (no (unknown) (unknown) BUN/Creatinine (units (unknown) date) Ratio 5.4 L 4.9 L unknown) (unknown) (no (unknown) (unknown) Baso # (Auto) 0 (units (unknown) date) unknown) (unknown) (no (unknown) (unknown) Baso % (Auto) 0.3 (units (unknown) date) unknown) (unknown) (no (unknown) (unknown) CV: regular rate (units (unknown) date) and rhythm, no unknown) murmurs (unknown) (no (unknown) (unknown) Calcium 7.8 L 7.8 L (unit s (unknown) date) unknown) (unknown) (no (unknown) (unknown) Carbon Dioxide 27 (units (unknown) date) 32 unknown) (unknown) (no (unknown) (unknown) Chief complaint: (units (unknown) date) GLF, left hip pain unknown) (unknown) (no (unknown) (unknown) Chloride 97 L 97 L (units (unknown) date) unknown) (unknown) (no (unknown) (unknown) Comment: (units (unkno wn) date) unknown) (unknown) (no (unknown) (unknown) Consult to (units (unk nown) date) Dietitian, Adult unknown) Routine (unknown) (no (unknown) (unknown) Consult to Home (units (unknown) date) Health Routine unknown) (unknown) (no (unknown) (unknown) Consult to (units (unk nown) date) Occupational Therapy unknown) Evaluate + Treat (unknown) (no (unknown) (unknown) Consult to (units (unk nown) date) Orthopedic Surgery unknown) Stat (unknown) (no (unknown) (unknown) Consult to Physical (unit s (unknown) date) Therapy Evaluate + unknown) Treat (unknown) (no (unknown) (unknown) Consulting (units (unk nown) date) Provider: unknown) Caesar Guerrier (unknown) (no (unknown) (unknown) Consults: (units (unkn own) date) unknown) (unknown) (no (unknown) (unknown) Creatinine 0.56 (units (unknown) date) 0.41 L unknown) (unknown) (no (unknown) (unknown) : 1960 (units (unknown) date) Acct:[id number] unknown) (unknown) (no (unknown) (unknown) Date of Service: (units (unknown) date) 04/30/22 unknown) (unknown) (no (unknown) (unknown) Date of admission: (units (unknown) date) unknown) (unknown) (no (unknown) (unknown) Deep Vein (units (unkn own) date) Thrombosis/Pulmonary unknown) Embolism Present on Admission: No (unknown) (no (unknown) (unknown) Diet/Activity/Treat (unit s (unknown) date) ments unknown) (unknown) (no (unknown) (unknown) Diet: Regular (units ( unknown) date) unknown) (unknown) (no (unknown) (unknown) Discharge Data (units (unknown) date) unknown) (unknown) (no (unknown) (unknown) Discharge Date: (units (unknown) date) 05/02/22 unknown) (unknown) (no (unknown) (unknown) Discharge (units (unkn own) date) Diagnosis: unknown) (unknown) (no (unknown) (unknown) Discharge Plan (units (unknown) date) unknown) (unknown) (no (unknown) (unknown) Discharge Providers (unit s (unknown) date) unknown) (unknown) (no (unknown) (unknown) Discharge Summary (units (unknown) date) unknown) (unknown) (no (unknown) (unknown) Discharge orders + (units (unknown) date) Medications unknown) (unknown) (no (unknown) (unknown) Discharge provider: (unit s (unknown) date) unknown) (unknown) (no (unknown) (unknown) EXT: warm and well (units (unknown) date) perfused, left hip unknown) tender (unknown) (no (unknown) (unknown) Eos # (Auto) 0 (units (unknown) date) unknown) (unknown) (no (unknown) (unknown) Eos % (Auto) 0.2 L (units (unknown) date) unknown) (unknown) (no (unknown) (unknown) Estimated GFR > 60 (units (unknown) date) > 60 unknown) (unknown) (no (unknown) (unknown) Exam Narrative: (units (unknown) date) unknown) (unknown) (no (unknown) (unknown) Exam (units (unkno wn) date) unknown) (unknown) (no (unknown) (unknown) Follow (units (unkno wn) date) up/Referrals: unknown) (unknown) (no (unknown) (unknown) GEN: no acute (units ( unknown) date) distress, unknown) (unknown) (no (unknown) (unknown) Glucose 107 77 L (units (unknown) date) unknown) (unknown) (no (unknown) (unknown) Has provider been (units (unknown) date) notified: Yes unknown) (unknown) (no (unknown) (unknown) Hct 25.8 L (units (unk nown) date) unknown) (unknown) (no (unknown) (unknown) Hgb 8.7 L (units (unkn own) date) unknown) (unknown) (no (unknown) (unknown) History of Present (units (unknown) date) Illness unknown) (unknown) (no (unknown) (unknown) Hospital Course (units (unknown) date) unknown) (unknown) (no (unknown) (unknown) Hospital Course: (units (unknown) date) unknown) (unknown) (no (unknown) (unknown) In the ED workup was (unit s (unknown) date) done, vitals notable unknown) for afebrile, blood pressure 110s/70s. (unknown) (no (unknown) (unknown) Instructions: DI (units (unknown) date) for Hip Fracture, unknown) Coping with Grief (unknown) (no (unknown) (unknown) [facility] (units (unknown) date) [address] unknown) [place] [address] (unknown) (no (unknown) (unknown) Tyree Hickman MD (units (unknown) date) unknown) (unknown) (no (unknown) (unknown) Laboratory Results (units (unknown) date) - last 24 hr unknown) (unknown) (no (unknown) (unknown) Labs notable for (units (unknown) date) WBC 11.8, hgb 11.9, unknown) plts 306. Na 122, creatinine 0.32. EtOH (unknown) (no (unknown) (unknown) Labs (units (unkno wn) date) unknown) (unknown) (no (unknown) (unknown) Labs: (units (unkno wn) date) unknown) (unknown) (no (unknown) (unknown) Prem Abrams MD (units (unknown) date) unknown) (unknown) (no (unknown) (unknown) Lymph # (Auto) 1700 (unit s (unknown) date) unknown) (unknown) (no (unknown) (unknown) Lymph % (Auto) 17.2 (unit s (unknown) date) L unknown) (unknown) (no (unknown) (unknown) MCH 35.4 H (units (unk nown) date) unknown) (unknown) (no (unknown) (unknown) MCHC 33.8 (units (unkn own) date) unknown) (unknown) (no (unknown) (unknown) MCV 104.6 H (units (un known) date) unknown) (unknown) (no (unknown) (unknown) Medications: (units (u nknown) date) ibuprofen PRN unknown) (unknown) (no (unknown) (unknown) [place] # (Auto) 1100 (units (unknown) date) H unknown) (unknown) (no (unknown) (unknown) [place] % (Auto) 11.0 (units (unknown) date) unknown) (unknown) (no (unknown) (unknown) Ms. Meng came (units (unknown) date) in to the hospital unknown) after a fall for which she had a pelvic (unknown) (no (unknown) (unknown) Ms. Meng is a (units (unknown) date) 61W active smoker, unknown) no known PMH who presents after a fall. (unknown) (no (unknown) (unknown) Narrative (units (unkn own) date) unknown) (unknown) (no (unknown) (unknown) Narrative: (units (unk nown) date) unknown) (unknown) (no (unknown) (unknown) Neut # (Auto) 7100 (units (unknown) date) H unknown) (unknown) (no (unknown) (unknown) Neut % (Auto) 71.3 (units (unknown) date) unknown) (unknown) (no (unknown) (unknown) New (units (unkno wn) date) unknown) (unknown) (no (unknown) (unknown) Nursing Discharge (units (unknown) date) Comment: call MD/ unknown) surgeon if any questions. monitor incision (unknown) (no (unknown) (unknown) Objective (units (unkn own) date) unknown) (unknown) (no (unknown) (unknown) Oxygen Delivery (units (unknown) date) Method Room Air unknown) (unknown) (no (unknown) (unknown) Oxygen Flow Rate 0 (units (unknown) date) unknown) (unknown) (no (unknown) (unknown) PFSH (units (unkno wn) date) unknown) (unknown) (no (unknown) (unknown) PMH: none (units (unkn own) date) unknown) (unknown) (no (unknown) (unknown) PULM: clear (units (un known) date) bilaterally, no unknown) wheezes, rhonchi, rales (unknown) (no (unknown) (unknown) Patient (units (unkno wn) date) Disposition: Home unknown) Health Service (unknown) (no (unknown) (unknown) Patient: (units (unkno wn) date) Nichol Meng R unknown) MR#: [id number] (unknown) (no (unknown) (unknown) Physician (units (unkn own) date) Instructions: unknown) Evaluate and Treat (unknown) (no (unknown) (unknown) Physician (units (unkn own) date) Instructions: unknown) Evaluate and treat (unknown) (no (unknown) (unknown) Plt Count 282 (units ( unknown) date) unknown) (unknown) (no (unknown) (unknown) Potassium 3.9 3.4 (units (unknown) date) unknown) (unknown) (no (unknown) (unknown) Prescriptions: (units (unknown) date) unknown) (unknown) (no (unknown) (unknown) Primary Care (units (u nknown) date) Provider: Prem Abrams unknown) (unknown) (no (unknown) (unknown) Primary care (units (u nknown) date) physician: unknown) (unknown) (no (unknown) (unknown) Provider Discharge (units (unknown) date) Comment: Ms. unknown) Duke came in to the hospital with a hip (unknown) (no (unknown) (unknown) Provider (units (unkno wn) date) unknown) (unknown) (no (unknown) (unknown) Provider: (units (unkn own) date) Tyree Hickman MD unknown) (unknown) (no (unknown) (unknown) Quality (units (unkno wn) date) unknown) (unknown) (no (unknown) (unknown) RBC 2.47 L (units (unk nown) date) unknown) (unknown) (no (unknown) (unknown) RDW 13.1 (units (unkno wn) date) unknown) (unknown) (no (unknown) (unknown) Reason For Exam: (units (unknown) date) Home Health upon DC unknown) (unknown) (no (unknown) (unknown) Reason For Exam: (units (unknown) date) bmi unknown) (unknown) (no (unknown) (unknown) Reason For Exam: (units (unknown) date) has had unknown) diarrhea/cdiff since 2016-drinks heavily, (unknown) (no (unknown) (unknown) Reason for (units (unk nown) date) consultation: hip unknown) (unknown) (no (unknown) (unknown) Result Diagrams: (units (unknown) date) unknown) (unknown) (no (unknown) (unknown) Prem Abrams MD (units (unknown) date) [Primary Care unknown) Provider] (unknown) (no (unknown) (unknown) She did fall on her (unit s (unknown) date) left hip and could unknown) not ambulate after. She has had a poor (unknown) (no (unknown) (unknown) She should follow (units (unknown) date) up with PCP within unknown) one week. (unknown) (no (unknown) (unknown) She should see (units ( unknown) date) orthopedic surgeon unknown) Dr. Guerrier in 6 weeks to evaluate how her hip (unknown) (no (unknown) (unknown) She should see (units (unknown) date) orthopedic surgery unknown) between may 11 and to remove the segundo. (unknown) (no (unknown) (unknown) She states she has (units (unknown) date) had back pain after unknown) getting a compression fracture from (unknown) (no (unknown) (unknown) Signed (units (unkno wn) date) By:<Electronically unknown) signed by Tyree Hickman MD> (unknown) (no (unknown) (unknown) Smoking Status: (units (unknown) date) Current every day unknown) smoker (unknown) (no (unknown) (unknown) Social History (units (unknown) date) (Updated 04/30/22 @ unknown) 10:49 by Lydia [place] MD) (unknown) (no (unknown) (unknown) Social history: 1.5 (unit s (unknown) date) ppd, EtOH variable, unknown) but sometimes significant, per patient (unknown) (no (unknown) (unknown) Sodium 127 L 130 L (units (unknown) date) unknown) (unknown) (no (unknown) (unknown) Status post (units (un known) date) appendectomy unknown) (unknown) (no (unknown) (unknown) Status post breast (units (unknown) date) lumpectomy unknown) (unknown) (no (unknown) (unknown) Status post (units (un known) date) hysterectomy unknown) (unknown) (no (unknown) (unknown) Summary (units (unkno wn) date) unknown) (unknown) (no (unknown) (unknown) Surgical History (units (unknown) date) (Reviewed 04/30/22 @ unknown) 05:46 by Tyree Hickman MD) (unknown) (no (unknown) (unknown) VTE (units (unkno wn) date) unknown) (unknown) (no (unknown) (unknown) Visit (units (unkno wn) date) Report/Discharge unknown) Packet (unknown) (no (unknown) (unknown) Vital Signs (units (un known) date) unknown) (unknown) (no (unknown) (unknown) WBC 9.9 (units (unkno wn) date) unknown) (unknown) (no (unknown) (unknown) Weight bearing as (units (unknown) date) tolerated. unknown) (unknown) (no (unknown) (unknown) [Embedded Image Not (unit s (unknown) date) Available] unknown) (unknown) (no (unknown) (unknown) acetaminophen 325 (units (unknown) date) mg Tablet unknown) (unknown) (no (unknown) (unknown) affect her wound (units (unknown) date) healing unknown) (unknown) (no (unknown) (unknown) alcohol intake: (units (unknown) date) current unknown) (unknown) (no (unknown) (unknown) and significant (units (unknown) date) malnutrition and saw unknown) dietary who recommended trying shakes and (unknown) (no (unknown) (unknown) appetite recently, (units (unknown) date) and has chronic unknown) diarrhea. (unknown) (no (unknown) (unknown) avoid alcohol and (units (unknown) date) follow up with her unknown) PCP as an outpatient. Her malnutrition may (unknown) (no (unknown) (unknown) be careful w/ any (units (unknown) date) alcohol and pain unknown) medications, they can be very sedating. (unknown) (no (unknown) (unknown) beer potomania and (units (unknown) date) regardless should unknown) improve her nutrition. She had BMI of 16 (unknown) (no (unknown) (unknown) call if (units (unk nown) date) increased pain not unknown) relieved by prescribed pain medications. (unknown) (no (unknown) (unknown) coughing a few weeks (unit s (unknown) date) ago. She was using a unknown) walker at home. She fell to the ground (unknown) (no (unknown) (unknown) counseling for (units (unknown) date) grief. unknown) (unknown) (no (unknown) (unknown) declined SNF and (units (unknown) date) ultimately wanted unknown) discharge home with home PT. Unfortunately (unknown) (no (unknown) (unknown) during her hospital (unit s (unknown) date) stay her unknown) . Her likely cause of injury is (unknown) (no (unknown) (unknown) enoxaparin (units (unk nown) date) [Lovenox] 40 mg/0.4 unknown) mL Syringe (unknown) (no (unknown) (unknown) folic acid 1 mg (units (unknown) date) Tablet unknown) (unknown) (no (unknown) (unknown) follow instructions (units (unknown) date) given to you by the unknown) physical therapist, and move slowly, and (unknown) (no (unknown) (unknown) fracture and left (units (unknown) date) hip fracture. She unknown) did have the hip fracture repaired. She (unknown) (no (unknown) (unknown) fracture. She (units (u nknown) date) improved after unknown) surgery. She was requesting to go home and not to a (unknown) (no (unknown) (unknown) given by the (units (u nknown) date) surgeon. unknown) (unknown) (no (unknown) (unknown) have your friends (units (unknown) date) help you. use the unknown) walker, and the weightbearing instructions (unknown) (no (unknown) (unknown) heal. (units (unkno wn) date) unknown) (unknown) (no (unknown) (unknown) household members: (units (unknown) date) none unknown) (unknown) (no (unknown) (unknown) if you have any (units (unknown) date) problems with unknown) sleeping, talk to your primary doctor about this! (unknown) (no (unknown) (unknown) intertrochanteric (units (unknown) date) fracture and lateral unknown) obturator ring fracture. (unknown) (no (unknown) (unknown) is healing. (units (un known) date) unknown) (unknown) (no (unknown) (unknown) it was a pleasure (units (unknown) date) to be your nurse, unknown) and even greater pleasure to meet you and (unknown) (no (unknown) (unknown) mechanical fall due (unit s (unknown) date) to alcohol unknown) intoxication. She was advised to avoid alcohol (unknown) (no (unknown) (unknown) multivitamin with (units (unknown) date) folic acid unknown) [Tab-A-Kevin] 400 mcg Tablet (unknown) (no (unknown) (unknown) no history of (units ( unknown) date) withdrawal unknown) (unknown) (no (unknown) (unknown) oxycodone 5 mg (units (unknown) date) Tablet unknown) (unknown) (no (unknown) (unknown) polyethylene glycol (unit s (unknown) date) 3350 17 gram Powder unknown) In Packet (unknown) (no (unknown) (unknown) rehab. She had a (units (unknown) date) low sodium level. unknown) She should stop drinking alcohol and needs (unknown) (no (unknown) (unknown) return to ER/Call (units (unknown) date) 911 if any shortness unknown) of breath or sharp pain in chest. (unknown) (no (unknown) (unknown) sennosides [senna] (units (unknown) date) 8.6 mg Tablet unknown) (unknown) (no (unknown) (unknown) sites to hip for (units (unknown) date) signs and symptoms unknown) of infection: redness, drainage, increased (unknown) (no (unknown) (unknown) swelling or fever > (unit s (unknown) date) 101.0 unknown) (unknown) (no (unknown) (unknown) talk to your (units (u nknown) date) friends and family unknown) about your feelings of grief + please consider (unknown) (no (unknown) (unknown) talk w/ you. (units (u nknown) date) unknown) (unknown) (no (unknown) (unknown) thank you to your (units (unknown) date) friends for coming unknown) to assist you in getting home. (unknown) (no (unknown) (unknown) thiamine (units (unkno wn) date) mononitrate (vit B1) unknown) 100 mg Tablet (unknown) (no (unknown) (unknown) to improve her (units (unknown) date) nutrition to eat unknown) healthy to keep her electrolytes normal and (unknown) (no (unknown) (unknown) today, she is not (units (unknown) date) sure why, she thinks unknown) she tripped. She did not hit her head. (unknown) (no (unknown) (unknown) use. She additional (unit s (unknown) date) was quite unknown) hyponatremic on admission at 122, and improved (unknown) (no (unknown) (unknown) with fluid (units (unk nown) date) restriction and unknown) improved diet. She may have a component of SIADH or (unknown) (no (unknown) (unknown) you have been thru (units (unknown) date) alot of tough unknown) moments this past week. please be gentle with (unknown) (no (unknown) (unknown) yourself and allow (units (unknown) date) time to grieve and unknown) heal. Result panel 34 (unknown) (no date) (unknown) (unknown) 0.4 % (unkn own) (unknown) (no date) (unknown) (unknown) 0.6 % (unkn own) (unknown) (no date) (unknown) (unknown) 100 /ul (unkn own) (unknown) (no date) (unknown) (unknown) 100 /ul (unkn own) (unknown) (no date) (unknown) (unknown) 103.5 fl (unkn own) (unknown) (no date) (unknown) (unknown) 36090 /ul (unkn own) (unknown) (no date) (unknown) (unknown) 1200 /ul (unkn own) (unknown) (no date) (unknown) (unknown) 13.3 % (unkn own) (unknown) (no date) (unknown) (unknown) 14.1 x10 3/ul (unkn own) (unknown) (no date) (unknown) (unknown) 15.3 % (unkn own) (unknown) (no date) (unknown) (unknown) 2.79 x10 6/ul (unkn own) (unknown) (no date) (unknown) (unknown) 2200 /ul (unkn own) (unknown) (no date) (unknown) (unknown) 28.8 % (unkn own) (unknown) (no date) (unknown) (unknown) 34.4 % (unkn own) (unknown) (no date) (unknown) (unknown) 35.6 pg (unkn own) (unknown) (no date) (unknown) (unknown) 407 x10 3/ul (unkn own) (unknown) (no date) (unknown) (unknown) 75.6 % (unkn own) (unknown) (no date) (unknown) (unknown) 8.1 % (unkn own) (unknown) (no date) (unknown) (unknown) 9.9 g/dl (unkn own) Result panel 35 (unknown) (no date) (unknown) (unknown) > 60 ml/min (unkn own) (unknown) (no date) (unknown) (unknown) > 60 ml/min (unkn own) (unknown) (no date) (unknown) (unknown) 0.25 mg/dl (unkn own) (unknown) (no date) (unknown) (unknown) 0.8 mg/dl (unkn own) (unknown) (no date) (unknown) (unknown) 0.9 (units (unkn own) unknown) (unknown) (no date) (unknown) (unknown) 115 u/l (unkn own) (unknown) (no date) (unknown) (unknown) 129 mmol/l (unkn own) (unknown) (no date) (unknown) (unknown) 16.0 (units (unkn own) unknown) (unknown) (no date) (unknown) (unknown) 19 iu/l (unkn own) (unknown) (no date) (unknown) (unknown) 24 mmol/l (unkn own) (unknown) (no date) (unknown) (unknown) 3.3 g/dl (unkn own) (unknown) (no date) (unknown) (unknown) 3.6 g/dl (unkn own) (unknown) (no date) (unknown) (unknown) 4 mg/dl (unkn own) (unknown) (no date) (unknown) (unknown) 4.0 mmol/l (unkn own) (unknown) (no date) (unknown) (unknown) 4.0 mmol/l (unkn own) (unknown) (no date) (unknown) (unknown) 40 iu/l (unkn own) (unknown) (no date) (unknown) (unknown) 6.9 g/dl (unkn own) (unknown) (no date) (unknown) (unknown) 64 u/l (unkn own) (unknown) (no date) (unknown) (unknown) 8.6 mg/dl (unkn own) (unknown) (no date) (unknown) (unknown) 86 mg/dl (unkn own) (unknown) (no date) (unknown) (unknown) 86 mg/dl (unkn own) (unknown) (no date) (unknown) (unknown) 95 mmol/l (unkn own) (unknown) (no date) (unknown) (unknown) Test not % (unkn own) performed (unknown) (no date) (unknown) (unknown) Test not % (unkn own) performed (unknown) (no date) (unknown) (unknown) Test not ng/ml (unkn own) performed (unknown) (no date) (unknown) (unknown) Test not ng/ml (unkn own) performed Result panel 36 (unknown) (no (unknown) (unknown) (no value) (units (unk nown) date) unknown) (unknown) (no (unknown) (unknown) [id number] (units (unkn own) date) unknown) (unknown) (no (unknown) (unknown) 1. Left (units (unkno wn) date) intertrochanteric unknown) hip fracture with good alignment. (unknown) (no (unknown) (unknown) 05/04/22 (units (unkno wn) date) unknown) (unknown) (no (unknown) (unknown) [address] [place] [address] (units (unknown) date) unknown) (unknown) (no (unknown) (unknown) 2. Fracture of the (units (unknown) date) left ischial unknown) tuberosity with sclerosis. (unknown) (no (unknown) (unknown) 23:53. [place] (units ( unknown) date) unknown) (unknown) (no (unknown) (unknown) Accession Number: (units (unknown) date) [id number] unknown) (unknown) (no (unknown) (unknown) Accession Number: (units (unknown) date) [id number] unknown) (unknown) (no (unknown) (unknown) Age/Sex: 61 / F (units (unknown) date) Date of Service: unknown) (unknown) (no (unknown) (unknown) [place] [address] (unit s (unknown) date) unknown) (unknown) (no (unknown) (unknown) Approved by: Steven (unit s (unknown) date) Polly Quiroz on unknown) 05/04/2022 at 18:22 (unknown) (no (unknown) (unknown) Approved by: Steven (unit s (unknown) date) Polly Quiroz on unknown) 05/04/2022 at 18:26 (unknown) (no (unknown) (unknown) Bones and chest (units (unknown) date) wall: No suspicious unknown) bony lesions. Overlying soft tissues (unknown) (no (unknown) (unknown) Bones: Patient is (units (unknown) date) status post left hip unknown) arthroplasty, with hardware components (unknown) (no (unknown) (unknown) [facility], CR, XR unknown) CHEST 1V, 04/29/2022, 23:53. (unknown) (no (unknown) (unknown) COMPARISON: [facility] (units (unknown) date) [facility], CR, XR HIP unknown) W PEL IF DONE LT 2V, 04/29/2022, (unknown) (no (unknown) (unknown) : 1960 (units (unknown) date) Acct:[id number] unknown) (unknown) (no (unknown) (unknown) Dictated by: Steven (unit s (unknown) date) Polly Quiroz on unknown) 05/04/2022 at 18:20 (unknown) (no (unknown) (unknown) Dictated by: Steven (unit s (unknown) date) Polly Quiroz on unknown) 05/04/2022 at 18:23 (unknown) (no (unknown) (unknown) FINDINGS: (units (unkn own) date) unknown) (unknown) (no (unknown) (unknown) Hospital, CR, XR (units (unknown) date) HIP W PEL IF DONE LT unknown) 2V, 04/30/2022, 15:29. (unknown) (no (unknown) (unknown) IMPRESSION: No (units (unknown) date) acute unknown) cardiopulmonary abnormality. (unknown) (no (unknown) (unknown) IMPRESSION: (units (un known) date) unknown) (unknown) (no (unknown) (unknown) INDICATIONS: Flu (units (unknown) date) like symptoms unknown) (unknown) (no (unknown) (unknown) INDICATIONS: sp hip (unit s (unknown) date) replacement after unknown) fall, gen weakness, increased WBC (unknown) (no (unknown) (unknown) [facility] (units (unknown) date) unknown) (unknown) (no (unknown) (unknown) Loc: ED (units (unkno wn) date) unknown) (unknown) (no (unknown) (unknown) Lungs and pleura: (units (unknown) date) Lungs are clear. No unknown) pleural effusions or pneumothorax. (unknown) (no (unknown) (unknown) Mediastinum: (units (u nknown) date) Mediastinal contours unknown) appear normal. Heart size is normal. (unknown) (no (unknown) (unknown) Ordering Provider: (units (unknown) date) Roe Su P.A-C unknown) (unknown) (no (unknown) (unknown) PROCEDURE: XR CHEST (unit s (unknown) date) 1V unknown) (unknown) (no (unknown) (unknown) PROCEDURE: XR (units ( unknown) date) PELVIS 1-2V unknown) (unknown) (no (unknown) (unknown) Patient: (units (unkno wn) date) Nichol Meng R unknown) MR#: M (unknown) (no (unknown) (unknown) Procedure: XR chest (unit s (unknown) date) 1V unknown) (unknown) (no (unknown) (unknown) Procedure: XR (units ( unknown) date) pelvis 1-2V unknown) (unknown) (no (unknown) (unknown) Signed (units (unkno wn) date) unknown) (unknown) (no (unknown) (unknown) Soft tissues: (units ( unknown) date) Overlying unknown) postoperative changes are noted. No suspicious soft (unknown) (no (unknown) (unknown) Surgical changes (units (unknown) date) and devices: None. unknown) (unknown) (no (unknown) (unknown) TECHNIQUE: 1 view (units (unknown) date) of the lower pelvis unknown) acquired. (unknown) (no (unknown) (unknown) TECHNIQUE: One view (unit s (unknown) date) of the chest was unknown) acquired. (unknown) (no (unknown) (unknown) XRay Report (units (un known) date) unknown) (unknown) (no (unknown) (unknown) appear (units (unkno wn) date) unknown) (unknown) (no (unknown) (unknown) at the (units (unkno wn) date) unknown) (unknown) (no (unknown) (unknown) densities. (units (unk nown) date) unknown) (unknown) (no (unknown) (unknown) expected positions. (unit s (unknown) date) The hip joint unknown) appears congruent. A fracture is also seen (unknown) (no (unknown) (unknown) in (units (unkno wn) date) unknown) (unknown) (no (unknown) (unknown) left ischial (units (u nknown) date) tuberosity similar unknown) to prior x-ray on 04/29/2022. Surrounding (unknown) (no (unknown) (unknown) noted. (units (unkno wn) date) unknown) (unknown) (no (unknown) (unknown) sclerosis is (units (u nknown) date) unknown) (unknown) (no (unknown) (unknown) tissue (units (unkno wn) date) unknown) (unknown) (no (unknown) (unknown) unremarkable. (units ( unknown) date) unknown) Result panel 37 (unknown) (no date) (unknown) (unknown) > 60 ml/min (unkn own) (unknown) (no date) (unknown) (unknown) > 60 ml/min (unkn own) (unknown) (no date) (unknown) (unknown) < 0.012 ng/ml (unkn own) (unknown) (no date) (unknown) (unknown) < 0.012 ng/ml (unkn own) (unknown) (no date) (unknown) (unknown) 0.25 mg/dl (unkn own) (unknown) (no date) (unknown) (unknown) 0.8 mg/dl (unkn own) (unknown) (no date) (unknown) (unknown) 0.9 (units (unkn own) unknown) (unknown) (no date) (unknown) (unknown) 115 u/l (unkn own) (unknown) (no date) (unknown) (unknown) 129 mmol/l (unkn own) (unknown) (no date) (unknown) (unknown) 16.0 (units (unkn own) unknown) (unknown) (no date) (unknown) (unknown) 19 iu/l (unkn own) (unknown) (no date) (unknown) (unknown) 24 mmol/l (unkn own) (unknown) (no date) (unknown) (unknown) 3.3 g/dl (unkn own) (unknown) (no date) (unknown) (unknown) 3.6 g/dl (unkn own) (unknown) (no date) (unknown) (unknown) 4 mg/dl (unkn own) (unknown) (no date) (unknown) (unknown) 4.0 mmol/l (unkn own) (unknown) (no date) (unknown) (unknown) 4.0 mmol/l (unkn own) (unknown) (no date) (unknown) (unknown) 40 iu/l (unkn own) (unknown) (no date) (unknown) (unknown) 6.9 g/dl (unkn own) (unknown) (no date) (unknown) (unknown) 64 u/l (unkn own) (unknown) (no date) (unknown) (unknown) 8.6 mg/dl (unkn own) (unknown) (no date) (unknown) (unknown) 86 mg/dl (unkn own) (unknown) (no date) (unknown) (unknown) 86 mg/dl (unkn own) (unknown) (no date) (unknown) (unknown) 95 mmol/l (unkn own) (unknown) (no date) (unknown) (unknown) Test not % (unkn own) performed (unknown) (no date) (unknown) (unknown) Test not % (unkn own) performed (unknown) (no date) (unknown) (unknown) Test not ng/ml (unkn own) performed (unknown) (no date) (unknown) (unknown) Test not ng/ml (unkn own) performed Result panel 38 (unknown) (no date) (unknown) (unknown) 1.8 mmol/l (unkn own) Result panel 39 (unknown) (no date) (unknown) (unknown) Negative (units (unkn own) unknown) (unknown) (no date) (unknown) (unknown) Negative (units (unkn own) unknown) Result panel 40 (unknown) (no date) (unknown) (unknown) <=1.005 (units (unkn own) unknown) (unknown) (no date) (unknown) (unknown) 0.2 e.u./dl (unkn own) (unknown) (no date) (unknown) (unknown) 1 (units (unkn own) unknown) (unknown) (no date) (unknown) (unknown) 7.0 (units (unkn own) unknown) (unknown) (no date) (unknown) (unknown) CLEAR (units (unkn own) unknown) (unknown) (no date) (unknown) (unknown) NEGATIVE (units (unkn own) unknown) (unknown) (no date) (unknown) (unknown) NEGATIVE g/dl (unkn own) (unknown) (no date) (unknown) (unknown) YELLOW (units (unkn own) unknown) (unknown) (no date) (unknown) (unknown) YELLOW (units (unkn own) unknown) Result panel 41 (unknown) (no date) (unknown) (unknown) 1.56 ng/ml (unkn own) (unknown) (no date) (unknown) (unknown) 1.56 ng/ml (unkn own) Result panel 42 (unknown) (no date) (unknown) (unknown) <=1.005 (units (unkn own) unknown) (unknown) (no date) (unknown) (unknown) 0-1 /HPF (units (unkn own) unknown) (unknown) (no date) (unknown) (unknown) 0-1/HPF (units (unkn own) unknown) (unknown) (no date) (unknown) (unknown) 0.2 e.u./dl (unkn own) (unknown) (no date) (unknown) (unknown) 1 (units (unkn own) unknown) (unknown) (no date) (unknown) (unknown) 1-5/HPF (units (unkn own) unknown) (unknown) (no date) (unknown) (unknown) 7.0 (units (unkn own) unknown) (unknown) (no date) (unknown) (unknown) CLEAR (units (unkn own) unknown) (unknown) (no date) (unknown) (unknown) Few (2-10) (units (un known) unknown) (unknown) (no date) (unknown) (unknown) NEGATIVE (units (unkn own) unknown) (unknown) (no date) (unknown) (unknown) NEGATIVE g/dl (unkn own) (unknown) (no date) (unknown) (unknown) Specimen (units (unkn own) Cultured unknown) (unknown) (no date) (unknown) (unknown) YELLOW (units (unkn own) unknown) (unknown) (no date) (unknown) (unknown) YELLOW (units (unkn own) unknown) Result panel 43 (unknown) (no (unknown) (unknown) (no value) (units (unk nown) date) unknown) (unknown) (no (unknown) (unknown) (1-3) #30 tabs (units (unknown) date) unknown) (unknown) (no (unknown) (unknown) (4-6) #30 tabs (units (unknown) date) unknown) (unknown) (no (unknown) (unknown) [id number] (units (unkno wn) date) unknown) (unknown) (no (unknown) (unknown) 1 mg PO DAILY (units ( unknown) date) Qty: 30 0RF unknown) (unknown) (no (unknown) (unknown) 1 tab PO DAILY (units (unknown) date) Qty: 30 0RF unknown) (unknown) (no (unknown) (unknown) 05/04/22 (units (unkno wn) date) 05/04/22 05/04/22 unknown) Range/Units (unknown) (no (unknown) (unknown) 05/04/22 16:46 (units (unknown) date) unknown) (unknown) (no (unknown) (unknown) 05/04/22 16:56 (units (unknown) date) unknown) (unknown) (no (unknown) (unknown) 05/04/22 16:59 (units (unknown) date) unknown) (unknown) (no (unknown) (unknown) 05/04/22 17:25 (units (unknown) date) unknown) (unknown) (no (unknown) (unknown) 05/04/22 17:41 (units (unknown) date) unknown) (unknown) (no (unknown) (unknown) 05/04/22 18:20 (units (unknown) date) unknown) (unknown) (no (unknown) (unknown) 05/04/22 18:46 (units (unknown) date) unknown) (unknown) (no (unknown) (unknown) 05/04/22 (units (unkno wn) date) unknown) (unknown) (no (unknown) (unknown) 100 mg PO DAILY (units (unknown) date) Qty: 30 0RF unknown) (unknown) (no (unknown) (unknown) 15:42 (units (unkno wn) date) unknown) (unknown) (no (unknown) (unknown) 16:46 16:46 (units (un known) date) 16:46 unknown) (unknown) (no (unknown) (unknown) 16:46 16:46 (units (un known) date) 17:41 unknown) (unknown) (no (unknown) (unknown) 17 g PO DAILY (units ( unknown) date) PRN (Reason: unknown) Constipation) Qty: 30 0RF (unknown) (no (unknown) (unknown) 40 mg SUBCUT (units (u nknown) date) DAILY 28 Days unknown) Qty: 12 0RF (unknown) (no (unknown) (unknown) 5 mg PO Q4HR PRN (units (unknown) date) (Reason: Pain, unknown) Moderate (4-6)) Qty: 30 0RF (unknown) (no (unknown) (unknown) 650 mg PO Q6HR (units (unknown) date) PRN (Reason: unknown) Fever/Mild Pain (1-3)) Qty: 30 0RF (unknown) (no (unknown) (unknown) 8.6 mg PO BID (units ( unknown) date) PRN (Reason: unknown) Constipation) Qty: 30 0RF (unknown) (no (unknown) (unknown) ALT (<35) IU/L (units (unknown) date) unknown) (unknown) (no (unknown) (unknown) ALT 19 (<35) (units (u nknown) date) IU/L unknown) (unknown) (no (unknown) (unknown) AST (14-36) IU/L (units (unknown) date) unknown) (unknown) (no (unknown) (unknown) AST 40 H (14-36) (units (unknown) date) IU/L unknown) (unknown) (no (unknown) (unknown) Acetaminophen (units ( unknown) date) (Acetaminophen unknown) 325 Mg Tablet) 650 mg PO Q6HR PRN (unknown) (no (unknown) (unknown) Age/Sex: 61 / F (units (unknown) date) unknown) (unknown) (no (unknown) (unknown) Albumin (units (unkno wn) date) (3.5-5.0) g/dL unknown) (unknown) (no (unknown) (unknown) Albumin 3.3 L (units ( unknown) date) (3.5-5.0) g/dL unknown) (unknown) (no (unknown) (unknown) Albumin/Globulin (units (unknown) date) Ratio (1.0-2.8) unknown) (unknown) (no (unknown) (unknown) Albumin/Globulin (units (unknown) date) Ratio 0.9 L unknown) (1.0-2.8) (unknown) (no (unknown) (unknown) Alcohol type: (units ( unknown) date) wine unknown) (unknown) (no (unknown) (unknown) Alkaline (units (unkno wn) date) Phosphatase unknown) (38-126) U/L (unknown) (no (unknown) (unknown) Alkaline (units (unkno wn) date) Phosphatase 115 unknown) (38-126) U/L (unknown) (no (unknown) (unknown) Allergies (units (unkn own) date) unknown) (unknown) (no (unknown) (unknown) Allergy/AdvReac (units (unknown) date) Type Severity unknown) Reaction Status Date / Time (unknown) (no (unknown) (unknown) Amorphous (units (unkn own) date) Sediment 1 unknown) (unknown) (no (unknown) (unknown) Amorphous (units (unkn own) date) Sediment unknown) (unknown) (no (unknown) (unknown) BUN (7-17) mg/dL (units (unknown) date) unknown) (unknown) (no (unknown) (unknown) BUN 4 L (7-17) (units (unknown) date) mg/dL unknown) (unknown) (no (unknown) (unknown) BUN/Creatinine (units (unknown) date) Ratio (6-22) unknown) (unknown) (no (unknown) (unknown) BUN/Creatinine (units (unknown) date) Ratio 16.0 (6-22) unknown) (unknown) (no (unknown) (unknown) Baso # (Auto) (units ( unknown) date) (0-100) /uL unknown) (unknown) (no (unknown) (unknown) Baso # (Auto) (units ( unknown) date) 100 (0-100) /uL unknown) (unknown) (no (unknown) (unknown) Baso % (Auto) (units ( unknown) date) (0-2) % unknown) (unknown) (no (unknown) (unknown) Baso % (Auto) (units ( unknown) date) 0.6 (0-2) % unknown) (unknown) (no (unknown) (unknown) Blood Culture (units ( unknown) date) Stat unknown) (unknown) (no (unknown) (unknown) Blood Pressure (units (unknown) date) 120/69 05/04/22 unknown) 15:42 (unknown) (no (unknown) (unknown) Blood Pressure (units (unknown) date) 120/69 unknown) (unknown) (no (unknown) (unknown) CK-MB (CK-2) Rel (units (unknown) date) Index TNP unknown) (unknown) (no (unknown) (unknown) CK-MB (CK-2) Rel (units (unknown) date) Index unknown) (unknown) (no (unknown) (unknown) CK-MB (CK-2) TNP (units (unknown) date) unknown) (unknown) (no (unknown) (unknown) CK-MB (CK-2) (units (u nknown) date) unknown) (unknown) (no (unknown) (unknown) COVID19 -Nasal (units (unknown) date) RAPID/Pre-Proc unknown) Stat (unknown) (no (unknown) (unknown) Calcium (units (unkno wn) date) (8.4-10.2) mg/dL unknown) (unknown) (no (unknown) (unknown) Calcium 8.6 (units (un known) date) (8.4-10.2) mg/dL unknown) (unknown) (no (unknown) (unknown) Carbon Dioxide (units (unknown) date) (22-32) mmol/L unknown) (unknown) (no (unknown) (unknown) Carbon Dioxide (units (unknown) date) 24 (22-32) mmol/L unknown) (unknown) (no (unknown) (unknown) Ceftriaxone (units (un known) date) Sodium 1,000 mg/ unknown) (Sodium Chloride) 100 mls @ 200 mls/hr IV NOW ONE (unknown) (no (unknown) (unknown) Chief Complaint: (units (unknown) date) Extremity Injury, unknown) Lower (unknown) (no (unknown) (unknown) Chloride (units (unkno wn) date) (98-107) mmol/L unknown) (unknown) (no (unknown) (unknown) Chloride 95 L (units ( unknown) date) (98-107) mmol/L unknown) (unknown) (no (unknown) (unknown) Complete Blood (units (unknown) date) Count AUTO DIFF unknown) Stat (unknown) (no (unknown) (unknown) Comprehensive (units ( unknown) date) Metabolic Panel unknown) Stat (unknown) (no (unknown) (unknown) 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 - (units (unknown) date) [employer] Worker unknown) Stat (unknown) (no (unknown) (unknown) Course (units (unkno wn) date) unknown) (unknown) (no (unknown) (unknown) Creatinine (units (unk nown) date) (0.52-1.04) mg/dL unknown) (unknown) (no (unknown) (unknown) Creatinine 0.25 (units (unknown) date) L (0.52-1.04) unknown) mg/dL (unknown) (no (unknown) (unknown) : 1960 (units (unknown) date) Acct:[id number] unknown) (unknown) (no (unknown) (unknown) Date of Service: (units (unknown) date) 05/04/22 unknown) (unknown) (no (unknown) (unknown) Departure (units (unkn own) date) unknown) (unknown) (no (unknown) (unknown) Discharge Plan (units (unknown) date) unknown) (unknown) (no (unknown) (unknown) Discontinued (units (u nknown) date) Medications unknown) (unknown) (no (unknown) (unknown) Documented By: (units (unknown) date) ZGG unknown) (unknown) (no (unknown) (unknown) ED Orders (units (unkn own) date) unknown) (unknown) (no (unknown) (unknown) EKG-12 Lead Stat (units (unknown) date) unknown) (unknown) (no (unknown) (unknown) ER Physician: (units ( unknown) date) Georges,Hyma P.A-C unknown) (unknown) (no (unknown) (unknown) Emergency Report (units (unknown) date) unknown) (unknown) (no (unknown) (unknown) Enoxaparin (units (unk nown) date) Sodium unknown) (Enoxaparin 40 Mg/0.4 Ml Syringe) 40 mg SUBCUT DAILY ALFREDA (unknown) (no (unknown) (unknown) Eos # (Auto) (units (u nknown) date) (0-450) /uL unknown) (unknown) (no (unknown) (unknown) Eos # (Auto) 100 (units (unknown) date) (0-450) /uL unknown) (unknown) (no (unknown) (unknown) Eos % (Auto) (units (u nknown) date) (2-4) % unknown) (unknown) (no (unknown) (unknown) Eos % (Auto) 0.4 (units (unknown) date) L (2-4) % unknown) (unknown) (no (unknown) (unknown) Estimated GFR > (units (unknown) date) 60 (>60) mL/min unknown) (unknown) (no (unknown) (unknown) Estimated GFR (units ( unknown) date) (>60) mL/min unknown) (unknown) (no (unknown) (unknown) Exam (units (unkno wn) date) unknown) (unknown) (no (unknown) (unknown) Folic Acid (units (unk n) date) (Folic Acid 1 Mg unknown) Tablet) 1 mg PO DAILY ALFREDA (unknown) (no (unknown) (unknown) General (units (unkno wn) date) unknown) (unknown) (no (unknown) (unknown) Globulin (units (unkno wn) date) (1.7-4.1) g/dL unknown) (unknown) (no (unknown) (unknown) Globulin 3.6 (units (u nknown) date) (1.7-4.1) g/dL unknown) (unknown) (no (unknown) (unknown) Glucose (80-110) (units (unknown) date) mg/dL unknown) (unknown) (no (unknown) (unknown) Glucose 86 (units (unk n) date) (80-110) mg/dL unknown) (unknown) (no (unknown) (unknown) HPI - Extremity (units (unknown) date) Injury (Lower) unknown) (unknown) (no (unknown) (unknown) Hct (36-46) % (units ( unknown) date) unknown) (unknown) (no (unknown) (unknown) Hct 28.8 L (units (unk nown) date) (36-46) % unknown) (unknown) (no (unknown) (unknown) Hgb (12.0-16.0) (units (unknown) date) g/dL unknown) (unknown) (no (unknown) (unknown) Hgb 9.9 L (units (unkn own) date) (12.0-16.0) g/dL unknown) (unknown) (no (unknown) (unknown) Hydromorphone (units ( unknown) date) HCl unknown) (Hydromorphone 1 Mg Inj) 1 mg IV NOW ONE (unknown) (no (unknown) (unknown) Initial Vital (units ( unknown) date) Signs unknown) (unknown) (no (unknown) (unknown) Initial Vital (units ( unknown) date) Signs: unknown) (unknown) (no (unknown) (unknown) [facility] (units (unknown) date) [address] unknown) [place] [address] (unknown) (no (unknown) (unknown) Lab Data (units (unkno wn) date) unknown) (unknown) (no (unknown) (unknown) Lab Results (units (un known) date) unknown) (unknown) (no (unknown) (unknown) Labs: (units (unkno wn) date) unknown) (unknown) (no (unknown) (unknown) Lactate (units (unkno wn) date) (0.7-2.1) mmol/L unknown) (unknown) (no (unknown) (unknown) Lactate (Lactic (units (unknown) date) Acid) Stat unknown) (unknown) (no (unknown) (unknown) Lactate 1.8 (units (un known) date) (0.7-2.1) mmol/L unknown) (unknown) (no (unknown) (unknown) Last Admin: (units (un known) date) 05/04/22 18:27 unknown) Dose: 1,000 mls/hr (unknown) (no (unknown) (unknown) Last Admin: (units (un known) date) 05/04/22 19:03 unknown) Dose: 1 mg (unknown) (no (unknown) (unknown) Last Admin: (units (un known) date) 05/04/22 19:03 unknown) Dose: 4 mg (unknown) (no (unknown) (unknown) Last Admin: (units (un known) date) 05/04/22 19:15 unknown) Dose: 200 mls/hr (unknown) (no (unknown) (unknown) Lymph # (Auto) (units (unknown) date) (9344-2363) /uL unknown) (unknown) (no (unknown) (unknown) Lymph # (Auto) (units (unknown) date) 2200 (4575-9816) unknown) /uL (unknown) (no (unknown) (unknown) Lymph % (Auto) (units (unknown) date) (25-40) % unknown) (unknown) (no (unknown) (unknown) Lymph % (Auto) (units (unknown) date) 15.3 L (25-40) % unknown) (unknown) (no (unknown) (unknown) MCH (26-34) PG (units (unknown) date) unknown) (unknown) (no (unknown) (unknown) MCH 35.6 H (units (unk nown) date) (26-34) PG unknown) (unknown) (no (unknown) (unknown) MCHC (30-36) % (units (unknown) date) unknown) (unknown) (no (unknown) (unknown) MCHC 34.4 (units (unkn own) date) (30-36) % unknown) (unknown) (no (unknown) (unknown) MCV (80-100) fL (units (unknown) date) unknown) (unknown) (no (unknown) (unknown) MCV 103.5 H (units (un known) date) (80-100) fL unknown) (unknown) (no (unknown) (unknown) MDM - Extremity (units (unknown) date) Injury (Lower) unknown) (unknown) (no (unknown) (unknown) Medication (units (unk nown) date) Instructions unknown) Recorded (unknown) (no (unknown) (unknown) Mode of arrival: (units (unknown) date) EMS unknown) (unknown) (no (unknown) (unknown) [place] # (Auto) (units ( unknown) date) (0-900) /uL unknown) (unknown) (no (unknown) (unknown) [place] # (Auto) (units ( unknown) date) 1200 H (0-900) unknown) /uL (unknown) (no (unknown) (unknown) [place] % (Auto) (units ( unknown) date) (3-14) % unknown) (unknown) (no (unknown) (unknown) [place] % (Auto) (units ( unknown) date) 8.1 (3-14) % unknown) (unknown) (no (unknown) (unknown) Multivitamins (units ( unknown) date) (Multivitamin 1 unknown) Tablet) 1 tab PO DAILY ALFREDA (unknown) (no (unknown) (unknown) Neut # (Auto) (units ( unknown) date) (9141-6360) /uL unknown) (unknown) (no (unknown) (unknown) Neut # (Auto) (units ( unknown) date) 36535 H unknown) (4901-8912) /uL (unknown) (no (unknown) (unknown) Neut % (Auto) (units ( unknown) date) (50-75) % unknown) (unknown) (no (unknown) (unknown) Neut % (Auto) (units ( unknown) date) 75.6 H (50-75) % unknown) (unknown) (no (unknown) (unknown) No Action (units (unkn own) date) unknown) (unknown) (no (unknown) (unknown) Ondansetron HCl (units (unknown) date) (Ondansetron 4 unknown) Mg/2 Ml Inj) 4 mg IV NOW ONE (unknown) (no (unknown) (unknown) Ordered: (units (unkno wn) date) unknown) (unknown) (no (unknown) (unknown) Orders (units (unkno wn) date) unknown) (unknown) (no (unknown) (unknown) Oxycodone HCl (units ( unknown) date) (Oxycodone Ir 5 unknown) Mg Tablet) 5 mg PO Q4HR PRN (unknown) (no (unknown) (unknown) Oxygen Delivery (units (unknown) date) Method 05/04/22 unknown) 15:42 (unknown) (no (unknown) (unknown) Oxygen Delivery (units (unknown) date) Method Room Air unknown) (unknown) (no (unknown) (unknown) PRN Reason: (units (un known) date) Constipation unknown) (unknown) (no (unknown) (unknown) PRN Reason: (units (un known) date) Fever/Mild Pain unknown) (1-3) (unknown) (no (unknown) (unknown) PRN Reason: (units (un known) date) Pain, Moderate unknown) (4-6) (unknown) (no (unknown) (unknown) PRN (units (unkno wn) date) unknown) (unknown) (no (unknown) (unknown) Patient History (units (unknown) date) unknown) (unknown) (no (unknown) (unknown) Patient: (units (unkno wn) date) Nichol Meng R unknown) MR#: [id number] (unknown) (no (unknown) (unknown) Penicillins (units (un known) date) [PENICILLINS] unknown) AdvReac Intermediate rash Verified 05/04/22 16:59 (unknown) (no (unknown) (unknown) Plt Count (units (unkn own) date) (150-400) X103/uL unknown) (unknown) (no (unknown) (unknown) Plt Count 407 H (units (unknown) date) (150-400) X103/uL unknown) (unknown) (no (unknown) (unknown) Polyethylene (units (u nknown) date) Glycol unknown) (Polyethylene Glycol 3350 17 Gm Powd.Pack) 17 gm PO DAILY (unknown) (no (unknown) (unknown) Potassium (units (unkn own) date) (3.4-5.1) mmol/L unknown) (unknown) (no (unknown) (unknown) Potassium 4.0 (units ( unknown) date) (3.4-5.1) mmol/L unknown) (unknown) (no (unknown) (unknown) Prescriptions: (units (unknown) date) unknown) (unknown) (no (unknown) (unknown) Previous Rx's (units ( unknown) date) unknown) (unknown) (no (unknown) (unknown) Procalcitonin (units ( unknown) date) (<0.5) ng/mL unknown) (unknown) (no (unknown) (unknown) Procalcitonin (units ( unknown) date) 1.56 H (<0.5) unknown) ng/mL (unknown) (no (unknown) (unknown) Procalcitonin (units ( unknown) date) Stat unknown) (unknown) (no (unknown) (unknown) Pulse Oximetry (units (unknown) date) 99 05/04/22 15:42 unknown) (unknown) (no (unknown) (unknown) Pulse Oximetry (units (unknown) date) 99 unknown) (unknown) (no (unknown) (unknown) Pulse Rate 95 H (units (unknown) date) 05/04/22 15:42 unknown) (unknown) (no (unknown) (unknown) Pulse Rate 95 H (units (unknown) date) unknown) (unknown) (no (unknown) (unknown) RBC (4.0-5.2) (units ( unknown) date) X106/uL unknown) (unknown) (no (unknown) (unknown) RBC 2.79 L (units (unk nown) date) (4.0-5.2) X106/uL unknown) (unknown) (no (unknown) (unknown) RDW (11.6-14.8) (units (unknown) date) % unknown) (unknown) (no (unknown) (unknown) RDW 13.3 (units (unkno wn) date) (11.6-14.8) % unknown) (unknown) (no (unknown) (unknown) Referrals: (units (unk nown) date) unknown) (unknown) (no (unknown) (unknown) Related Data (units (u nknown) date) unknown) (unknown) (no (unknown) (unknown) Respiratory Rate (units (unknown) date) 17 05/04/22 15:42 unknown) (unknown) (no (unknown) (unknown) Respiratory Rate (units (unknown) date) 18 unknown) (unknown) (no (unknown) (unknown) Result diagrams: (units (unknown) date) unknown) (unknown) (no (unknown) (unknown) Prem Abrams MD (units (unknown) date) [Primary Care unknown) Provider] (unknown) (no (unknown) (unknown) SARS-CoV-2 (PCR) (units (unknown) date) (Negative) unknown) (unknown) (no (unknown) (unknown) SARS-CoV-2 (PCR) (units (unknown) date) Negative unknown) (Negative) (unknown) (no (unknown) (unknown) Sennosides (units (unk nown) date) (Sennosides 8.6 unknown) Mg Tablet) 8.6 mg PO BID PRN (unknown) (no (unknown) (unknown) Signed By: (units (unk nown) date) unknown) (unknown) (no (unknown) (unknown) Smoking Status: (units (unknown) date) Current every day unknown) smoker (unknown) (no (unknown) (unknown) Social History (units (unknown) date) (Updated 04/30/22 unknown) @ 10:49 by Lydia Paris MD) (unknown) (no (unknown) (unknown) Sodium (137-145) (units (unknown) date) mmol/L unknown) (unknown) (no (unknown) (unknown) Sodium 129 L (units (u nknown) date) (137-145) mmol/L unknown) (unknown) (no (unknown) (unknown) Sodium Chloride (units (unknown) date) (Normal Saline unknown) 0.9%) 1,000 mls @ 1,000 mls/hr IV BOLUS ONE (unknown) (no (unknown) (unknown) Source: EMS (units (un known) date) unknown) (unknown) (no (unknown) (unknown) Stated (units (unkno wn) date) Complaint: Hip unknown) pain (unknown) (no (unknown) (unknown) Status post (units (un known) date) appendectomy unknown) (unknown) (no (unknown) (unknown) Status post (units (un known) date) breast lumpectomy unknown) (unknown) (no (unknown) (unknown) Status post (units (un known) date) hysterectomy unknown) (unknown) (no (unknown) (unknown) Stop: 05/04/22 (units (unknown) date) 18:51 unknown) (unknown) (no (unknown) (unknown) Stop: 05/04/22 (units (unknown) date) 19:03 unknown) (unknown) (no (unknown) (unknown) Stop: 05/04/22 (units (unknown) date) 19:20 unknown) (unknown) (no (unknown) (unknown) Substance Use (units ( unknown) date) Type: does not unknown) use (unknown) (no (unknown) (unknown) Surgical History (units (unknown) date) (Reviewed unknown) 04/30/22 @ 05:46 by Tyree Hickman MD) (unknown) (no (unknown) (unknown) Temperature 98 F (units (unknown) date) 05/04/22 15:42 unknown) (unknown) (no (unknown) (unknown) Temperature 98 F (units (unknown) date) unknown) (unknown) (no (unknown) (unknown) Thiamine HCl (units (u nknown) date) (Thiamine 100 Mg unknown) Tablet) 100 mg PO DAILY ALFREDA (unknown) (no (unknown) (unknown) Time Seen by (units (u nknown) date) Provider: unknown) 05/04/22 17:23 (unknown) (no (unknown) (unknown) Total Bilirubin (units (unknown) date) (0.2-1.3) mg/dL unknown) (unknown) (no (unknown) (unknown) Total Bilirubin (units (unknown) date) 0.8 (0.2-1.3) unknown) mg/dL (unknown) (no (unknown) (unknown) Total Creatine (units (unknown) date) Kinase (30-135) unknown) U/L (unknown) (no (unknown) (unknown) Total Creatine (units (unknown) date) Kinase 64 unknown) (30-135) U/L (unknown) (no (unknown) (unknown) Total Protein (units ( unknown) date) (6.3-8.2) g/dL unknown) (unknown) (no (unknown) (unknown) Total Protein (units ( unknown) date) 6.9 (6.3-8.2) unknown) g/dL (unknown) (no (unknown) (unknown) Troponin + CK (units ( unknown) date) Cardiac Panel unknown) Stat (unknown) (no (unknown) (unknown) Troponin I < (units (u nknown) date) 0.012 unknown) (0.01-0.034) ng/mL (unknown) (no (unknown) (unknown) Troponin I (units (unk nown) date) (0.01-0.034) unknown) ng/mL (unknown) (no (unknown) (unknown) Ur Culture (units (unk nown) date) Indicated? unknown) Specimen cultured (unknown) (no (unknown) (unknown) Ur Culture (units (unk nown) date) Indicated? unknown) (unknown) (no (unknown) (unknown) Ur Leukocyte (units (u nknown) date) Esterase unknown) (NEGATIVE) (unknown) (no (unknown) (unknown) Ur Leukocyte (units (u nknown) date) Esterase 1+ H unknown) (NEGATIVE) (unknown) (no (unknown) (unknown) Ur Specific (units (un known) date) [place] <=1.005 unknown) (1.000-1.035) (unknown) (no (unknown) (unknown) Ur Specific (units (un known) date) [place] unknown) (1.000-1.035) (unknown) (no (unknown) (unknown) Ur Squamous (units (un known) date) Epith Cells unknown) (0-5/HPF) (unknown) (no (unknown) (unknown) Ur Squamous (units (un known) date) Epith Cells 0-1 unknown) /hpf (0-5/HPF) (unknown) (no (unknown) (unknown) Urinalysis and (units (unknown) date) Microscopic Stat unknown) (unknown) (no (unknown) (unknown) Urine Appearance (units (unknown) date) Clear unknown) (unknown) (no (unknown) (unknown) Urine Appearance (units (unknown) date) unknown) (unknown) (no (unknown) (unknown) Urine Bacteria (units (unknown) date) (None) unknown) (unknown) (no (unknown) (unknown) Urine Bacteria (units (unknown) date) Few (2-10) H unknown) (None) (unknown) (no (unknown) (unknown) Urine Bilirubin (units (unknown) date) (NEGATIVE) unknown) (unknown) (no (unknown) (unknown) Urine Bilirubin (units (unknown) date) Negative unknown) (NEGATIVE) (unknown) (no (unknown) (unknown) Urine Color (units (un known) date) Yellow unknown) (unknown) (no (unknown) (unknown) Urine Color (units (un known) date) unknown) (unknown) (no (unknown) (unknown) Urine Culture (units ( unknown) date) Stat unknown) (unknown) (no (unknown) (unknown) Urine Glucose (units ( unknown) date) (UA) (Negative) unknown) g/dL (unknown) (no (unknown) (unknown) Urine Glucose (units ( unknown) date) (UA) Negative unknown) (Negative) g/dL (unknown) (no (unknown) (unknown) Urine Ketones (units ( unknown) date) (NEGATIVE) unknown) (unknown) (no (unknown) (unknown) Urine Ketones (units ( unknown) date) Negative unknown) (NEGATIVE) (unknown) (no (unknown) (unknown) Urine Nitrate (units ( unknown) date) (Negative) unknown) (unknown) (no (unknown) (unknown) Urine Nitrate (units ( unknown) date) Negative unknown) (Negative) (unknown) (no (unknown) (unknown) Urine Occult (units (u nknown) date) Blood (Negative) unknown) (unknown) (no (unknown) (unknown) Urine Occult (units (u nknown) date) Blood 1+ H unknown) (Negative) (unknown) (no (unknown) (unknown) Urine Protein (units ( unknown) date) (Negative) unknown) (unknown) (no (unknown) (unknown) Urine Protein (units ( unknown) date) Negative unknown) (Negative) (unknown) (no (unknown) (unknown) Urine RBC (units (unkn own) date) (0-5/HPF) unknown) (unknown) (no (unknown) (unknown) Urine RBC (units (unkn own) date) 0-1/hpf (0-5/HPF) unknown) (unknown) (no (unknown) (unknown) Urine (units (unkno wn) date) Urobilinogen unknown) (0.2) E.U./dL (unknown) (no (unknown) (unknown) Urine (units (unkno wn) date) Urobilinogen 0.2 unknown) (0.2) E.U./dL (unknown) (no (unknown) (unknown) Urine WBC (units (unkn own) date) (0-5/HPF) unknown) (unknown) (no (unknown) (unknown) Urine WBC (units (unkn own) date) 1-5/hpf (0-5/HPF) unknown) (unknown) (no (unknown) (unknown) Urine pH (units (unkno wn) date) (4.5-8.0) unknown) (unknown) (no (unknown) (unknown) Urine pH 7.0 (units (u nknown) date) (4.5-8.0) unknown) (unknown) (no (unknown) (unknown) Vital Signs - 8 (units (unknown) date) hr unknown) (unknown) (no (unknown) (unknown) Vital Signs (units (un known) date) unknown) (unknown) (no (unknown) (unknown) Vital signs: (units (u nknown) date) unknown) (unknown) (no (unknown) (unknown) WBC (4.5-11.0) (units (unknown) date) X103/uL unknown) (unknown) (no (unknown) (unknown) WBC 14.1 H (units (unk nown) date) (4.5-11.0) unknown) X103/uL (unknown) (no (unknown) (unknown) Wound Culture (units ( unknown) date) and Gram Stain unknown) Stat (unknown) (no (unknown) (unknown) XR chest 1V Stat (units (unknown) date) unknown) (unknown) (no (unknown) (unknown) XR pelvis 1-2V (units (unknown) date) Stat unknown) (unknown) (no (unknown) (unknown) [Embedded Image (units (unknown) date) Not Available] unknown) (unknown) (no (unknown) (unknown) acetaminophen (units ( unknown) date) 325 mg Tablet unknown) (unknown) (no (unknown) (unknown) acetaminophen (units ( unknown) date) 325 mg tablet 650 unknown) mg PO Q6HR PRN Fever/Mild Pain 05/02/22 (unknown) (no (unknown) (unknown) alcohol intake (units (unknown) date) frequency: 3 or unknown) more drinks per day (unknown) (no (unknown) (unknown) alcohol intake: (units (unknown) date) current unknown) (unknown) (no (unknown) (unknown) enoxaparin 40 (units ( unknown) date) mg/0.4 mL 40 mg unknown) (0.4 mL) SUBCUT DAILY 28 05/02/22 (unknown) (no (unknown) (unknown) enoxaparin (units (unk nown) date) [Lovenox] 40 unknown) mg/0.4 mL Syringe (unknown) (no (unknown) (unknown) folic acid 1 mg (units (unknown) date) Tablet unknown) (unknown) (no (unknown) (unknown) folic acid 1 mg (units (unknown) date) tablet 1 mg PO unknown) DAILY #30 tabs 05/02/22 (unknown) (no (unknown) (unknown) household (units (unkn own) date) members: none unknown) (unknown) (no (unknown) (unknown) mcg tablet (units (unk nown) date) (Tab-A-Kevin) unknown) (unknown) (no (unknown) (unknown) mg tablet (units (unkn own) date) unknown) (unknown) (no (unknown) (unknown) morphine AdvReac (units (unknown) date) Intermediate unknown) Hallucinati Verified 05/04/22 16:59 (unknown) (no (unknown) (unknown) multivitamin (units (u nknown) date) with folic acid unknown) 400 1 tab PO DAILY #30 tabs 05/02/22 (unknown) (no (unknown) (unknown) multivitamin (units (u nknown) date) with folic acid unknown) [Tab-A-Kevin] 400 mcg Tablet (unknown) (no (unknown) (unknown) ng (units (unkno wn) date) unknown) (unknown) (no (unknown) (unknown) oral powder (units (un known) date) packet ea unknown) (unknown) (no (unknown) (unknown) oxycodone 5 mg (units (unknown) date) Tablet unknown) (unknown) (no (unknown) (unknown) oxycodone 5 mg (units (unknown) date) tablet 5 mg PO unknown) Q4HR PRN Pain, Moderate 05/02/22 (unknown) (no (unknown) (unknown) polyethylene (units (u nknown) date) glycol 3350 17 unknown) gram 17 g PO DAILY PRN Constipation #30 05/02/22 (unknown) (no (unknown) (unknown) polyethylene (units (u nknown) date) glycol 3350 17 unknown) gram Powder In Packet (unknown) (no (unknown) (unknown) sennosides 8.6 (units (unknown) date) mg tablet (senna) unknown) 8.6 mg PO BID PRN Constipation #30 05/02/22 (unknown) (no (unknown) (unknown) sennosides (units (unk nown) date) [senna] 8.6 mg unknown) Tablet (unknown) (no (unknown) (unknown) subcutaneous (units (u nknown) date) syringe (Lovenox) unknown) days #12 mL (unknown) (no (unknown) (unknown) tabs (units (unkno wn) date) unknown) (unknown) (no (unknown) (unknown) thiamine (units (unkno wn) date) mononitrate (vit unknown) B1) 100 100 mg PO DAILY #30 tabs 05/02/22 (unknown) (no (unknown) (unknown) thiamine (units (unkno wn) date) mononitrate (vit unknown) B1) 100 mg Tablet Result panel 44 (unknown) (no (unknown) (unknown) (no value) (units (unk nown) date) unknown) (unknown) (no (unknown) (unknown) (1-3) #30 tabs (units (unknown) date) unknown) (unknown) (no (unknown) (unknown) (4-6) #30 tabs (units (unknown) date) unknown) (unknown) (no (unknown) (unknown) [id number] (units (unkno wn) date) unknown) (unknown) (no (unknown) (unknown) 1. Left (units (unkno wn) date) intertrochanteric unknown) hip fracture with good alignment. (unknown) (no (unknown) (unknown) 05/04/22 05/04/22 (units (unknown) date) 05/04/22 Range/Units unknown) (unknown) (no (unknown) (unknown) 05/04/22 16:46 (units (unknown) date) unknown) (unknown) (no (unknown) (unknown) 05/04/22 16:56 (units (unknown) date) unknown) (unknown) (no (unknown) (unknown) 05/04/22 16:59 (units (unknown) date) unknown) (unknown) (no (unknown) (unknown) 05/04/22 17:25 (units (unknown) date) unknown) (unknown) (no (unknown) (unknown) 05/04/22 17:41 (units (unknown) date) unknown) (unknown) (no (unknown) (unknown) 05/04/22 18:20 (units (unknown) date) unknown) (unknown) (no (unknown) (unknown) 05/04/22 18:46 (units (unknown) date) unknown) (unknown) (no (unknown) (unknown) 05/04/22 (units (unkno wn) date) unknown) (unknown) (no (unknown) (unknown) 15:42 (units (unkno wn) date) unknown) (unknown) (no (unknown) (unknown) 16:46 16:46 16:46 (units (unknown) date) unknown) (unknown) (no (unknown) (unknown) 16:46 16:46 17:41 (units (unknown) date) unknown) (unknown) (no (unknown) (unknown) 2. Fracture of the (units (unknown) date) left ischial unknown) tuberosity with sclerosis.? (unknown) (no (unknown) (unknown) 23:53.? [facility] (units (unknown) date) unknown) (unknown) (no (unknown) (unknown) 61-year-old female (units (unknown) date) with a past medical unknown) history of alcohol and tobacco use (unknown) (no (unknown) (unknown) ? (units (unkno wn) date) unknown) (unknown) (no (unknown) (unknown) ALT (<35) IU/L (units (unknown) date) unknown) (unknown) (no (unknown) (unknown) ALT 19 (<35) IU/L (units (unknown) date) unknown) (unknown) (no (unknown) (unknown) AST (14-36) IU/L (units (unknown) date) unknown) (unknown) (no (unknown) (unknown) AST 40 H (14-36) (units (unknown) date) IU/L unknown) (unknown) (no (unknown) (unknown) Acetaminophen (units ( unknown) date) (Acetaminophen 325 unknown) Mg Tablet) 650 mg PO Q6HR PRN (unknown) (no (unknown) (unknown) Admit Date/Time: (units (unknown) date) 05/04/22 19:33 unknown) (unknown) (no (unknown) (unknown) Age/Sex: 61 / F (units (unknown) date) unknown) (unknown) (no (unknown) (unknown) Albumin (3.5-5.0) (units (unknown) date) g/dL unknown) (unknown) (no (unknown) (unknown) Albumin 3.3 L (units ( unknown) date) (3.5-5.0) g/dL unknown) (unknown) (no (unknown) (unknown) Albumin/Globulin (units (unknown) date) Ratio (1.0-2.8) unknown) (unknown) (no (unknown) (unknown) Albumin/Globulin (units (unknown) date) Ratio 0.9 L unknown) (1.0-2.8) (unknown) (no (unknown) (unknown) Alcohol type: wine (units (unknown) date) unknown) (unknown) (no (unknown) (unknown) Alkaline (units (unkno wn) date) Phosphatase (38-126) unknown) U/L (unknown) (no (unknown) (unknown) Alkaline (units (unkno wn) date) Phosphatase 115 unknown) (38-126) U/L (unknown) (no (unknown) (unknown) Allergic/Immunologi (unit s (unknown) date) c unknown) (unknown) (no (unknown) (unknown) Allergic/Immunologi (unit s (unknown) date) c: Denies urticaria, unknown) Denies throat swelling and Denies (unknown) (no (unknown) (unknown) Allergies (units (unkn own) date) unknown) (unknown) (no (unknown) (unknown) Allergy/AdvReac (units (unknown) date) Type Severity unknown) Reaction Status Date / Time (unknown) (no (unknown) (unknown) Amorphous Sediment (units (unknown) date) 1 unknown) (unknown) (no (unknown) (unknown) Amorphous Sediment (units (unknown) date) unknown) (unknown) (no (unknown) (unknown) Approved by: Steven (unit s (unknown) date) Polly Quiroz on unknown) 05/04/2022 at 18:22 ? (unknown) (no (unknown) (unknown) Approved by: Steven (unit s (unknown) date) Polly Quiroz on unknown) 05/04/2022 at 18:26 ? (unknown) (no (unknown) (unknown) Auscultation:?clear (unit s (unknown) date) to auscultation unknown) bilaterally (unknown) (no (unknown) (unknown) BUN (7-17) mg/dL (units (unknown) date) unknown) (unknown) (no (unknown) (unknown) BUN 4 L (7-17) (units (unknown) date) mg/dL unknown) (unknown) (no (unknown) (unknown) BUN/Creatinine (units (unknown) date) Ratio (6-22) unknown) (unknown) (no (unknown) (unknown) BUN/Creatinine (units (unknown) date) Ratio 16.0 (6-22) unknown) (unknown) (no (unknown) (unknown) Baso # (Auto) (units ( unknown) date) (0-100) /uL unknown) (unknown) (no (unknown) (unknown) Baso # (Auto) 100 (units (unknown) date) (0-100) /uL unknown) (unknown) (no (unknown) (unknown) Baso % (Auto) (0-2) (unit s (unknown) date) % unknown) (unknown) (no (unknown) (unknown) Baso % (Auto) 0.6 (units (unknown) date) (0-2) % unknown) (unknown) (no (unknown) (unknown) Blood Culture Stat (units (unknown) date) unknown) (unknown) (no (unknown) (unknown) Blood Pressure (units (unknown) date) 120/69 05/04/22 unknown) 15:42 (unknown) (no (unknown) (unknown) Blood Pressure (units (unknown) date) 120/69 unknown) (unknown) (no (unknown) (unknown) Bones and chest (units (unknown) date) wall:? No suspicious unknown) bony lesions.? Overlying soft tissues (unknown) (no (unknown) (unknown) Bones:? Patient is (units (unknown) date) status post left hip unknown) arthroplasty, with hardware components (unknown) (no (unknown) (unknown) Both surgical (units ( unknown) date) incisions appear to unknown) be healing without overt signs of infection (unknown) (no (unknown) (unknown) CK-MB (CK-2) Rel (units (unknown) date) Index TNP unknown) (unknown) (no (unknown) (unknown) CK-MB (CK-2) Rel (units (unknown) date) Index unknown) (unknown) (no (unknown) (unknown) CK-MB (CK-2) TNP (units (unknown) date) unknown) (unknown) (no (unknown) (unknown) CK-MB (CK-2) (units (u nknown) date) unknown) (unknown) (no (unknown) (unknown) COMPARISON:? [facility] date[facility], CR, XR unknown) CHEST 1V, 04/29/2022, 23:53. (unknown) (no (unknown) (unknown) COMPARISON:? [facility] (unit s (unknown) date) [facility], CR, XR HIP unknown) W PEL IF DONE LT 2V, 04/29/2022, (unknown) (no (unknown) (unknown) COVID19 -Nasal (units (unknown) date) RAPID/Pre-Proc Stat unknown) (unknown) (no (unknown) (unknown) Calcium (8.4-10.2) (units (unknown) date) mg/dL unknown) (unknown) (no (unknown) (unknown) Calcium 8.6 (units (un known) date) (8.4-10.2) mg/dL unknown) (unknown) (no (unknown) (unknown) Carbon Dioxide (units (unknown) date) (22-32) mmol/L unknown) (unknown) (no (unknown) (unknown) Carbon Dioxide 24 (units (unknown) date) (22-32) mmol/L unknown) (unknown) (no (unknown) (unknown) Cardio (units (unkno wn) date) unknown) (unknown) (no (unknown) (unknown) Cardiovascular (units (unknown) date) unknown) (unknown) (no (unknown) (unknown) Cardiovascular: (units (unknown) date) Denies chest pain, unknown) Denies irregular heart rhythm, Denies (unknown) (no (unknown) (unknown) Ceftriaxone Sodium (units (unknown) date) 1,000 mg/ (Sodium unknown) Chloride) 100 mls @ 200 mls/hr IV NOW ONE (unknown) (no (unknown) (unknown) Chest x-ray: (units (u nknown) date) unknown) (unknown) (no (unknown) (unknown) Chief Complaint: (units (unknown) date) Extremity Injury, unknown) Lower (unknown) (no (unknown) (unknown) Chloride (98-107) (units (unknown) date) mmol/L unknown) (unknown) (no (unknown) (unknown) Chloride 95 L (units ( unknown) date) (98-107) mmol/L unknown) (unknown) (no (unknown) (unknown) Comments: (units (unkn own) date) unknown) (unknown) (no (unknown) (unknown) Complete Blood (units (unknown) date) Count AUTO DIFF Stat unknown) (unknown) (no (unknown) (unknown) Comprehensive (units ( unknown) date) Metabolic Panel Stat unknown) (unknown) (no (unknown) (unknown) Const (units (unkno wn) date) unknown) (unknown) (no (unknown) (unknown) Constitutional (units (unknown) date) unknown) (unknown) (no (unknown) (unknown) Constitutional: (units (unknown) date) Denies chills, unknown) Denies fatigue, Denies fever(s), Denies frequent (unknown) (no (unknown) (unknown) 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 - (units (unknown) date) [employer] Worker Stat unknown) (unknown) (no (unknown) (unknown) Course (units (unkno wn) date) unknown) (unknown) (no (unknown) (unknown) Creatinine (units (unk nown) date) (0.52-1.04) mg/dL unknown) (unknown) (no (unknown) (unknown) Creatinine 0.25 L (units (unknown) date) (0.52-1.04) mg/dL unknown) (unknown) (no (unknown) (unknown) : 1960 (units (unknown) date) Acct:[id number] unknown) (unknown) (no (unknown) (unknown) Date of Service: (units (unknown) date) 05/04/22 unknown) (unknown) (no (unknown) (unknown) Denies frequent (units (unknown) date) falls, Denies loss unknown) of vision, Denies numbness, Denies tingling (unknown) (no (unknown) (unknown) Denies loss of (units (unknown) date) vision unknown) (unknown) (no (unknown) (unknown) Denies numbness and (unit s (unknown) date) Denies tingling unknown) (unknown) (no (unknown) (unknown) Departure (units (unkn own) date) unknown) (unknown) (no (unknown) (unknown) Dictated by: Steven (unit s (unknown) date) Polly Quiroz on unknown) 05/04/2022 at 18:20 ? ? (unknown) (no (unknown) (unknown) Dictated by: Steven (unit s (unknown) date) Polly Quiroz on unknown) 05/04/2022 at 18:23 ? ? (unknown) (no (unknown) (unknown) Discharge Plan (units (unknown) date) unknown) (unknown) (no (unknown) (unknown) Discontinued (units (u nknown) date) Medications unknown) (unknown) (no (unknown) (unknown) Documented By: ZGG (units (unknown) date) unknown) (unknown) (no (unknown) (unknown) ED Orders (units (unkn own) date) unknown) (unknown) (no (unknown) (unknown) EKG-12 Lead Stat (units (unknown) date) unknown) (unknown) (no (unknown) (unknown) ENT (units (unkno wn) date) unknown) (unknown) (no (unknown) (unknown) ER Physician: (units ( unknown) date) Georges,Hyma P.A-C unknown) (unknown) (no (unknown) (unknown) Ears, Nose, Mouth, (units (unknown) date) and Throat: Denies unknown) change in voice, Denies dizziness, Denies (unknown) (no (unknown) (unknown) Ears:?hearing (units ( unknown) date) grossly normal unknown) bilaterally (unknown) (no (unknown) (unknown) Effort + (units (unkno wn) date) Inspection:?normal unknown) respiratory effort (unknown) (no (unknown) (unknown) Emergency Report (units (unknown) date) unknown) (unknown) (no (unknown) (unknown) Endocrine (units (unkn own) date) unknown) (unknown) (no (unknown) (unknown) Endocrine: Denies (units (unknown) date) fatigue, Denies unknown) flushing and Denies palpitations (unknown) (no (unknown) (unknown) Enoxaparin Sodium (units (unknown) date) (Enoxaparin 40 unknown) Mg/0.4 Ml Syringe) 40 mg SUBCUT DAILY ALFREDA (unknown) (no (unknown) (unknown) Eos # (Auto) (units (u nknown) date) (0-450) /uL unknown) (unknown) (no (unknown) (unknown) Eos # (Auto) 100 (units (unknown) date) (0-450) /uL unknown) (unknown) (no (unknown) (unknown) Eos % (Auto) (2-4) (units (unknown) date) % unknown) (unknown) (no (unknown) (unknown) Eos % (Auto) 0.4 L (units (unknown) date) (2-4) % unknown) (unknown) (no (unknown) (unknown) Estimated GFR > 60 (units (unknown) date) (>60) mL/min unknown) (unknown) (no (unknown) (unknown) Estimated GFR (>60) (unit s (unknown) date) mL/min unknown) (unknown) (no (unknown) (unknown) Exam Narrative: (units (unknown) date) unknown) (unknown) (no (unknown) (unknown) Exam (units (unkno wn) date) unknown) (unknown) (no (unknown) (unknown) Eyes (units (unkno wn) date) unknown) (unknown) (no (unknown) (unknown) Eyes: Denies change (unit s (unknown) date) in vision, Denies unknown) eye discharge, Denies irritation and (unknown) (no (unknown) (unknown) FINDINGS:? (units (unk nown) date) unknown) (unknown) (no (unknown) (unknown) Face and (units (unkno wn) date) sinus:?normal facial unknown) exam and sinuses nontender (unknown) (no (unknown) (unknown) Folic Acid (Folic (units (unknown) date) Acid 1 Mg Tablet) 1 unknown) mg PO DAILY ALFREDA (unknown) (no (unknown) (unknown) Gastrointestinal (units (unknown) date) unknown) (unknown) (no (unknown) (unknown) Gastrointestinal: (units (unknown) date) Denies abdominal unknown) pain, Denies change in bowel habits, Denies (unknown) (no (unknown) (unknown) General (units (unkno wn) date) unknown) (unknown) (no (unknown) (unknown) General:?appearance (unit s (unknown) date) normal, both eyes unknown) and all related structures (unknown) (no (unknown) (unknown) General:?cooperativ (unit s (unknown) date) e, healthy appearing unknown) and comfortable (unknown) (no (unknown) (unknown) General:?patient (units (unknown) date) alert, patient awake unknown) and patient oriented x3 (unknown) (no (unknown) (unknown) Genitourinary (units ( unknown) date) unknown) (unknown) (no (unknown) (unknown) Genitourinary: (units (unknown) date) Denies hematuria, unknown) Denies flank pain, Denies urinary incontinence (unknown) (no (unknown) (unknown) Globulin (1.7-4.1) (units (unknown) date) g/dL unknown) (unknown) (no (unknown) (unknown) Globulin 3.6 (units (u nknown) date) (1.7-4.1) g/dL unknown) (unknown) (no (unknown) (unknown) Glucose (80-110) (units (unknown) date) mg/dL unknown) (unknown) (no (unknown) (unknown) Glucose 86 (80-110) (unit s (unknown) date) mg/dL unknown) (unknown) (no (unknown) (unknown) HENMT (units (unkno wn) date) unknown) (unknown) (no (unknown) (unknown) HPI - Extremity (units (unknown) date) Injury (Lower) unknown) (unknown) (no (unknown) (unknown) HPI Narrative: (units (unknown) date) unknown) (unknown) (no (unknown) (unknown) Hct (36-46) % (units ( unknown) date) unknown) (unknown) (no (unknown) (unknown) Hct 28.8 L (36-46) (units (unknown) date) % unknown) (unknown) (no (unknown) (unknown) Head:?normal to (units (unknown) date) inspection unknown) (unknown) (no (unknown) (unknown) Hematologic/Lymphat (unit s (unknown) date) ic unknown) (unknown) (no (unknown) (unknown) Hematologic/Lymphat (unit s (unknown) date) ic: Denies easy unknown) bruising (unknown) (no (unknown) (unknown) Hgb (12.0-16.0) (units (unknown) date) g/dL unknown) (unknown) (no (unknown) (unknown) Hgb 9.9 L (units (unkn own) date) (12.0-16.0) g/dL unknown) (unknown) (no (unknown) (unknown) Hip pain (units (unkno wn) date) unknown) (unknown) (no (unknown) (unknown) History of Present (units (unknown) date) Illness unknown) (unknown) (no (unknown) (unknown) Hospital, CR, XR (units (unknown) date) HIP W PEL IF DONE LT unknown) 2V, 04/30/2022, 15:29. (unknown) (no (unknown) (unknown) Hydromorphone HCl (units (unknown) date) (Hydromorphone 1 Mg unknown) Inj) 1 mg IV NOW ONE (unknown) (no (unknown) (unknown) IMPRESSION:? No (units (unknown) date) acute unknown) cardiopulmonary abnormality. (unknown) (no (unknown) (unknown) IMPRESSION:? (units (u nknown) date) unknown) (unknown) (no (unknown) (unknown) INDICATIONS:? Flu (units (unknown) date) like symptoms unknown) (unknown) (no (unknown) (unknown) INDICATIONS:? sp (units (unknown) date) hip replacement unknown) after fall, gen weakness, increased WBC (unknown) (no (unknown) (unknown) IV fluids. (units (unk nown) date) Hospitalist unknown) Ismael consulted for admission until patient can be (unknown) (no (unknown) (unknown) Imaging Data (units (u nknown) date) unknown) (unknown) (no (unknown) (unknown) Initial Vital Signs (unit s (unknown) date) unknown) (unknown) (no (unknown) (unknown) Initial Vital (units ( unknown) date) Signs: unknown) (unknown) (no (unknown) (unknown) Integumentary (units ( unknown) date) unknown) (unknown) (no (unknown) (unknown) Integumentary/Breas (unit s (unknown) date) ts unknown) (unknown) (no (unknown) (unknown) [facility] (units (unknown) date) [address] unknown) [place] [address] (unknown) (no (unknown) (unknown) Lab Data (units (unkno wn) date) unknown) (unknown) (no (unknown) (unknown) Lab Results (units (un known) date) unknown) (unknown) (no (unknown) (unknown) Labs: (units (unkno wn) date) unknown) (unknown) (no (unknown) (unknown) Lactate (0.7-2.1) (units (unknown) date) mmol/L unknown) (unknown) (no (unknown) (unknown) Lactate (Lactic (units (unknown) date) Acid) Stat unknown) (unknown) (no (unknown) (unknown) Lactate 1.8 (units (un known) date) (0.7-2.1) mmol/L unknown) (unknown) (no (unknown) (unknown) Last Admin: (units (un known) date) 05/04/22 18:27 Dose: unknown) 1,000 mls/hr (unknown) (no (unknown) (unknown) Last Admin: (units (un known) date) 05/04/22 19:03 Dose: unknown) 1 mg (unknown) (no (unknown) (unknown) Last Admin: (units (un known) date) 05/04/22 19:03 Dose: unknown) 4 mg (unknown) (no (unknown) (unknown) Last Admin: (units (un known) date) 05/04/22 19:15 Dose: unknown) 200 mls/hr (unknown) (no (unknown) (unknown) Lungs and pleura:? (units (unknown) date) Lungs are clear.? No unknown) pleural effusions or pneumothorax.? (unknown) (no (unknown) (unknown) Lymph # (Auto) (units (unknown) date) (1445-8158) /uL unknown) (unknown) (no (unknown) (unknown) Lymph # (Auto) 2200 (unit s (unknown) date) (8226-7757) /uL unknown) (unknown) (no (unknown) (unknown) Lymph % (Auto) (units (unknown) date) (25-40) % unknown) (unknown) (no (unknown) (unknown) Lymph % (Auto) 15.3 (unit s (unknown) date) L (25-40) % unknown) (unknown) (no (unknown) (unknown) MCH (26-34) PG (units (unknown) date) unknown) (unknown) (no (unknown) (unknown) MCH 35.6 H (26-34) (units (unknown) date) PG unknown) (unknown) (no (unknown) (unknown) MCHC (30-36) % (units (unknown) date) unknown) (unknown) (no (unknown) (unknown) MCHC 34.4 (30-36) % (unit s (unknown) date) unknown) (unknown) (no (unknown) (unknown) MCV (80-100) fL (units (unknown) date) unknown) (unknown) (no (unknown) (unknown) MCV 103.5 H (units (un known) date) (80-100) fL unknown) (unknown) (no (unknown) (unknown) MDM - Extremity (units (unknown) date) Injury (Lower) unknown) (unknown) (no (unknown) (unknown) MDM Narrative (units ( unknown) date) unknown) (unknown) (no (unknown) (unknown) Mediastinum:? (units ( unknown) date) Mediastinal contours unknown) appear normal.? Heart size is normal.? (unknown) (no (unknown) (unknown) Medical decision (units (unknown) date) making narrative: unknown) (unknown) (no (unknown) (unknown) Medication (units (unk nown) date) Instructions unknown) Recorded (unknown) (no (unknown) (unknown) Mode of arrival: (units (unknown) date) EMS unknown) (unknown) (no (unknown) (unknown) [place] # (Auto) (units ( unknown) date) (0-900) /uL unknown) (unknown) (no (unknown) (unknown) [place] # (Auto) 1200 (units (unknown) date) H (0-900) /uL unknown) (unknown) (no (unknown) (unknown) [place] % (Auto) (units ( unknown) date) (3-14) % unknown) (unknown) (no (unknown) (unknown) [place] % (Auto) 8.1 (units (unknown) date) (3-14) % unknown) (unknown) (no (unknown) (unknown) Mouth:?oral mucosae (unit s (unknown) date) normal unknown) (unknown) (no (unknown) (unknown) Multivitamins (units ( unknown) date) (Multivitamin 1 unknown) Tablet) 1 tab PO DAILY ALFREDA (unknown) (no (unknown) (unknown) Musculoskeletal (units (unknown) date) unknown) (unknown) (no (unknown) (unknown) Musculoskeletal: (units (unknown) date) Denies back pain, unknown) Denies muscle weakness, Denies neck pain, (unknown) (no (unknown) (unknown) Narrative (units (unkn own) date) unknown) (unknown) (no (unknown) (unknown) Neck (units (unkno wn) date) unknown) (unknown) (no (unknown) (unknown) Neck:?normal visual (unit s (unknown) date) inspection and no unknown) lymphadenopathy noted (unknown) (no (unknown) (unknown) Neuro (units (unkno wn) date) unknown) (unknown) (no (unknown) (unknown) Neurologic (units (unk nown) date) unknown) (unknown) (no (unknown) (unknown) Neurologic: Denies (units (unknown) date) behavioral changes, unknown) Denies confusion, Denies dizziness, (unknown) (no (unknown) (unknown) Neut # (Auto) (units ( unknown) date) (4735-4285) /uL unknown) (unknown) (no (unknown) (unknown) Neut # (Auto) 27159 (unit s (unknown) date) H (5299-3126) /uL unknown) (unknown) (no (unknown) (unknown) Neut % (Auto) (units ( unknown) date) (50-75) % unknown) (unknown) (no (unknown) (unknown) Neut % (Auto) 75.6 (units (unknown) date) H (50-75) % unknown) (unknown) (no (unknown) (unknown) Nose:?external nose (unit s (unknown) date) normal unknown) (unknown) (no (unknown) (unknown) Ondansetron HCl (units (unknown) date) (Ondansetron 4 Mg/2 unknown) Ml Inj) 4 mg IV NOW ONE (unknown) (no (unknown) (unknown) Ordered: (units (unkno wn) date) unknown) (unknown) (no (unknown) (unknown) Orders (units (unkno wn) date) unknown) (unknown) (no (unknown) (unknown) Oxycodone HCl (units ( unknown) date) (Oxycodone Ir 5 Mg unknown) Tablet) 5 mg PO Q4HR PRN (unknown) (no (unknown) (unknown) Oxygen Delivery (units (unknown) date) Method 05/04/22 unknown) 15:42 (unknown) (no (unknown) (unknown) Oxygen Delivery (units (unknown) date) Method Room Air unknown) (unknown) (no (unknown) (unknown) PRN Reason: (units (un known) date) Constipation unknown) (unknown) (no (unknown) (unknown) PRN Reason: (units (un known) date) Fever/Mild Pain unknown) (1-3) (unknown) (no (unknown) (unknown) PRN Reason: Pain, (units (unknown) date) Moderate (4-6) unknown) (unknown) (no (unknown) (unknown) PRN (units (unkno wn) date) unknown) (unknown) (no (unknown) (unknown) PROCEDURE:? XR (units (unknown) date) CHEST 1V unknown) (unknown) (no (unknown) (unknown) PROCEDURE:? XR (units (unknown) date) PELVIS 1-2V unknown) (unknown) (no (unknown) (unknown) Patient History (units (unknown) date) unknown) (unknown) (no (unknown) (unknown) Patient: (units (unkno wn) date) Nichol Meng unknown) MR#: [id number] (unknown) (no (unknown) (unknown) Pelvic Xray: (units (u nknown) date) unknown) (unknown) (no (unknown) (unknown) Penicillins (units (un known) date) [PENICILLINS] unknown) AdvReac Intermediate rash Verified 05/04/22 16:59 (unknown) (no (unknown) (unknown) Plt Count (150-400) (unit s (unknown) date) X103/uL unknown) (unknown) (no (unknown) (unknown) Plt Count 407 H (units (unknown) date) (150-400) X103/uL unknown) (unknown) (no (unknown) (unknown) Polyethylene Glycol (unit s (unknown) date) (Polyethylene Glycol unknown) 3350 17 Gm Powd.Pack) 17 gm PO DAILY (unknown) (no (unknown) (unknown) Potassium (3.4-5.1) (unit s (unknown) date) mmol/L unknown) (unknown) (no (unknown) (unknown) Potassium 4.0 (units ( unknown) date) (3.4-5.1) mmol/L unknown) (unknown) (no (unknown) (unknown) Previous Rx's (units ( unknown) date) unknown) (unknown) (no (unknown) (unknown) Procalcitonin (units ( unknown) date) (<0.5) ng/mL unknown) (unknown) (no (unknown) (unknown) Procalcitonin 1.56 (units (unknown) date) H (<0.5) ng/mL unknown) (unknown) (no (unknown) (unknown) Procalcitonin Stat (units (unknown) date) unknown) (unknown) (no (unknown) (unknown) Psychiatric (units (un known) date) unknown) (unknown) (no (unknown) (unknown) Psychiatric: Denies (units (unknown) date) anxiety, Denies unknown) behavioral changes, Denies confusion, Denies (unknown) (no (unknown) (unknown) Pulse Oximetry 99 (units (unknown) date) 05/04/22 15:42 unknown) (unknown) (no (unknown) (unknown) Pulse Oximetry 99 (units (unknown) date) unknown) (unknown) (no (unknown) (unknown) Pulse Rate 95 H (units (unknown) date) 05/04/22 15:42 unknown) (unknown) (no (unknown) (unknown) Pulse Rate 95 H (units (unknown) date) unknown) (unknown) (no (unknown) (unknown) RBC (4.0-5.2) (units ( unknown) date) X106/uL unknown) (unknown) (no (unknown) (unknown) RBC 2.79 L (units (unk nown) date) (4.0-5.2) X106/uL unknown) (unknown) (no (unknown) (unknown) RDW (11.6-14.8) % (units (unknown) date) unknown) (unknown) (no (unknown) (unknown) RDW 13.3 (units (unkno wn) date) (11.6-14.8) % unknown) (unknown) (no (unknown) (unknown) ROS Unobtainable: (units (unknown) date) All systems reviewed unknown) + are unremarkable except as noted in HPI (unknown) (no (unknown) (unknown) Radiologist's (units ( unknown) date) Impression: unknown) (unknown) (no (unknown) (unknown) Rate:?regular rate (units (unknown) date) unknown) (unknown) (no (unknown) (unknown) Related Data (units (u nknown) date) unknown) (unknown) (no (unknown) (unknown) Resp (units (unkno wn) date) unknown) (unknown) (no (unknown) (unknown) Respiratory Rate 17 (unit s (unknown) date) 05/04/22 15:42 unknown) (unknown) (no (unknown) (unknown) Respiratory Rate 17 (unit s (unknown) date) unknown) (unknown) (no (unknown) (unknown) Respiratory (units (un known) date) unknown) (unknown) (no (unknown) (unknown) Respiratory: Denies (units (unknown) date) cough, Denies unknown) dyspnea, Denies dyspnea on exertion and Denies (unknown) (no (unknown) (unknown) Result diagrams: (units (unknown) date) unknown) (unknown) (no (unknown) (unknown) Review of Systems (units (unknown) date) unknown) (unknown) (no (unknown) (unknown) Rhythm:?regular (units (unknown) date) rhythm unknown) (unknown) (no (unknown) (unknown) SARS-CoV-2 (PCR) (units (unknown) date) (Negative) unknown) (unknown) (no (unknown) (unknown) SARS-CoV-2 (PCR) (units (unknown) date) Negative (Negative) unknown) (unknown) (no (unknown) (unknown) Sennosides (units (unk nown) date) (Sennosides 8.6 Mg unknown) Tablet) 8.6 mg PO BID PRN (unknown) (no (unknown) (unknown) Signed By: (units (unk nown) date) unknown) (unknown) (no (unknown) (unknown) Skin/Breast: Denies (unit s (unknown) date) pruritus, Denies unknown) erythema, Denies rash and Denies wounds (unknown) (no (unknown) (unknown) Smoking Status: (units (unknown) date) Current every day unknown) smoker (unknown) (no (unknown) (unknown) Social History (units (unknown) date) (Reviewed 05/04/22 @ unknown) 19:33 by Hyma Georges, PA-C) (unknown) (no (unknown) (unknown) Sodium (137-145) (units (unknown) date) mmol/L unknown) (unknown) (no (unknown) (unknown) Sodium 129 L (units (u nknown) date) (137-145) mmol/L unknown) (unknown) (no (unknown) (unknown) Sodium Chloride (units (unknown) date) (Normal Saline 0.9%) unknown) 1,000 mls @ 1,000 mls/hr IV BOLUS ONE (unknown) (no (unknown) (unknown) Soft tissues:? (units (unknown) date) Overlying unknown) postoperative changes are noted.? No suspicious soft (unknown) (no (unknown) (unknown) Source: EMS (units (un known) date) unknown) (unknown) (no (unknown) (unknown) Stated Complaint: (units (unknown) date) Hip pain unknown) (unknown) (no (unknown) (unknown) Status post (units (un known) date) appendectomy unknown) (unknown) (no (unknown) (unknown) Status post breast (units (unknown) date) lumpectomy unknown) (unknown) (no (unknown) (unknown) Status post (units (un known) date) hysterectomy unknown) (unknown) (no (unknown) (unknown) Stop: 05/04/22 (units (unknown) date) 18:51 unknown) (unknown) (no (unknown) (unknown) Stop: 05/04/22 (units (unknown) date) 19:03 unknown) (unknown) (no (unknown) (unknown) Stop: 05/04/22 (units (unknown) date) 19:20 unknown) (unknown) (no (unknown) (unknown) Substance Use Type: (unit s (unknown) date) does not use unknown) (unknown) (no (unknown) (unknown) Surgical History (units (unknown) date) (Reviewed 05/04/22 @ unknown) 19:33 by Roe Su PA-C) (unknown) (no (unknown) (unknown) Surgical changes (units (unknown) date) and devices:? None.? unknown) (unknown) (no (unknown) (unknown) TECHNIQUE:? 1 view (units (unknown) date) of the lower pelvis unknown) acquired.? (unknown) (no (unknown) (unknown) TECHNIQUE:? One (units (unknown) date) view of the chest unknown) was acquired.? (unknown) (no (unknown) (unknown) Temperature 98 F (units (unknown) date) 05/04/22 15:42 unknown) (unknown) (no (unknown) (unknown) Temperature 98 F (units (unknown) date) unknown) (unknown) (no (unknown) (unknown) Thiamine HCl (units (u nknown) date) (Thiamine 100 Mg unknown) Tablet) 100 mg PO DAILY ALFREDA (unknown) (no (unknown) (unknown) Throat:?posterior (units (unknown) date) oropharynx normal unknown) (unknown) (no (unknown) (unknown) Time Seen by (units (u nknown) date) Provider: 05/04/22 unknown) 17:23 (unknown) (no (unknown) (unknown) Total Bilirubin (units (unknown) date) (0.2-1.3) mg/dL unknown) (unknown) (no (unknown) (unknown) Total Bilirubin 0.8 (unit s (unknown) date) (0.2-1.3) mg/dL unknown) (unknown) (no (unknown) (unknown) Total Creatine (units (unknown) date) Kinase (30-135) U/L unknown) (unknown) (no (unknown) (unknown) Total Creatine (units (unknown) date) Kinase 64 (30-135) unknown) U/L (unknown) (no (unknown) (unknown) Total Protein (units ( unknown) date) (6.3-8.2) g/dL unknown) (unknown) (no (unknown) (unknown) Total Protein 6.9 (units (unknown) date) (6.3-8.2) g/dL unknown) (unknown) (no (unknown) (unknown) Troponin + CK (units ( unknown) date) Cardiac Panel Stat unknown) (unknown) (no (unknown) (unknown) Troponin I < 0.012 (units (unknown) date) (0.01-0.034) ng/mL unknown) (unknown) (no (unknown) (unknown) Troponin I (units (unk nown) date) (0.01-0.034) ng/mL unknown) (unknown) (no (unknown) (unknown) Ur Culture (units (unk nown) date) Indicated? Specimen unknown) cultured (unknown) (no (unknown) (unknown) Ur Culture (units (unk nown) date) Indicated? unknown) (unknown) (no (unknown) (unknown) Ur Leukocyte (units (u nknown) date) Esterase (NEGATIVE) unknown) (unknown) (no (unknown) (unknown) Ur Leukocyte (units (u nknown) date) Esterase 1+ H unknown) (NEGATIVE) (unknown) (no (unknown) (unknown) Ur Specific [place] (unit s (unknown) date) <=1.005 unknown) (1.000-1.035) (unknown) (no (unknown) (unknown) Ur Specific [place] (unit s (unknown) date) (1.000-1.035) unknown) (unknown) (no (unknown) (unknown) Ur Squamous Epith (units (unknown) date) Cells (0-5/HPF) unknown) (unknown) (no (unknown) (unknown) Ur Squamous Epith (units (unknown) date) Cells 0-1 /hpf unknown) (0-5/HPF) (unknown) (no (unknown) (unknown) Urinalysis and (units (unknown) date) Microscopic Stat unknown) (unknown) (no (unknown) (unknown) Urine Appearance (units (unknown) date) Clear unknown) (unknown) (no (unknown) (unknown) Urine Appearance (units (unknown) date) unknown) (unknown) (no (unknown) (unknown) Urine Bacteria (units (unknown) date) (None) unknown) (unknown) (no (unknown) (unknown) Urine Bacteria Few (units (unknown) date) (2-10) H (None) unknown) (unknown) (no (unknown) (unknown) Urine Bilirubin (units (unknown) date) (NEGATIVE) unknown) (unknown) (no (unknown) (unknown) Urine Bilirubin (units (unknown) date) Negative (NEGATIVE) unknown) (unknown) (no (unknown) (unknown) Urine Color Yellow (units (unknown) date) unknown) (unknown) (no (unknown) (unknown) Urine Color (units (un known) date) unknown) (unknown) (no (unknown) (unknown) Urine Culture Stat (units (unknown) date) unknown) (unknown) (no (unknown) (unknown) Urine Glucose (UA) (units (unknown) date) (Negative) g/dL unknown) (unknown) (no (unknown) (unknown) Urine Glucose (UA) (units (unknown) date) Negative (Negative) unknown) g/dL (unknown) (no (unknown) (unknown) Urine Ketones (units ( unknown) date) (NEGATIVE) unknown) (unknown) (no (unknown) (unknown) Urine Ketones (units ( unknown) date) Negative (NEGATIVE) unknown) (unknown) (no (unknown) (unknown) Urine Nitrate (units ( unknown) date) (Negative) unknown) (unknown) (no (unknown) (unknown) Urine Nitrate (units ( unknown) date) Negative (Negative) unknown) (unknown) (no (unknown) (unknown) Urine Occult Blood (units (unknown) date) (Negative) unknown) (unknown) (no (unknown) (unknown) Urine Occult Blood (units (unknown) date) 1+ H (Negative) unknown) (unknown) (no (unknown) (unknown) Urine Protein (units ( unknown) date) (Negative) unknown) (unknown) (no (unknown) (unknown) Urine Protein (units ( unknown) date) Negative (Negative) unknown) (unknown) (no (unknown) (unknown) Urine RBC (0-5/HPF) (unit s (unknown) date) unknown) (unknown) (no (unknown) (unknown) Urine RBC 0-1/hpf (units (unknown) date) (0-5/HPF) unknown) (unknown) (no (unknown) (unknown) Urine Urobilinogen (units (unknown) date) (0.2) E.U./dL unknown) (unknown) (no (unknown) (unknown) Urine Urobilinogen (units (unknown) date) 0.2 (0.2) E.U./dL unknown) (unknown) (no (unknown) (unknown) Urine WBC (0-5/HPF) (unit s (unknown) date) unknown) (unknown) (no (unknown) (unknown) Urine WBC 1-5/hpf (units (unknown) date) (0-5/HPF) unknown) (unknown) (no (unknown) (unknown) Urine pH (4.5-8.0) (units (unknown) date) unknown) (unknown) (no (unknown) (unknown) Urine pH 7.0 (units (u nknown) date) (4.5-8.0) unknown) (unknown) (no (unknown) (unknown) Vital Signs - 8 hr (units (unknown) date) unknown) (unknown) (no (unknown) (unknown) Vital Signs (units (un known) date) unknown) (unknown) (no (unknown) (unknown) Vital signs: (units (u nknown) date) unknown) (unknown) (no (unknown) (unknown) WBC (4.5-11.0) (units (unknown) date) X103/uL unknown) (unknown) (no (unknown) (unknown) WBC 14.1 H (units (unk nown) date) (4.5-11.0) X103/uL unknown) (unknown) (no (unknown) (unknown) Will treat pain (units (unknown) date) with Dilaudid, unknown) Zofran. Will start Rocephin 1 g IV. Will give (unknown) (no (unknown) (unknown) Wound Culture and (units (unknown) date) Gram Stain Stat unknown) (unknown) (no (unknown) (unknown) XR chest 1V Stat (units (unknown) date) unknown) (unknown) (no (unknown) (unknown) XR pelvis 1-2V Stat (unit s (unknown) date) unknown) (unknown) (no (unknown) (unknown) [Embedded Image Not (unit s (unknown) date) Available] unknown) (unknown) (no (unknown) (unknown) acetaminophen 325 (units (unknown) date) mg tablet 650 mg PO unknown) Q6HR PRN Fever/Mild Pain 05/02/22 (unknown) (no (unknown) (unknown) again, especially (units (unknown) date) given her alcohol unknown) use. Patient's pain appears to be poorly (unknown) (no (unknown) (unknown) alcohol intake (units (unknown) date) frequency: 3 or more unknown) drinks per day (unknown) (no (unknown) (unknown) alcohol intake: (units (unknown) date) current unknown) (unknown) (no (unknown) (unknown) and Denies (units (unk nown) date) orthopnea unknown) (unknown) (no (unknown) (unknown) and Denies urinary (units (unknown) date) urgency unknown) (unknown) (no (unknown) (unknown) and Denies weakness (unit s (unknown) date) unknown) (unknown) (no (unknown) (unknown) and below (units (unkn own) date) unknown) (unknown) (no (unknown) (unknown) appear (units (unkno wn) date) unknown) (unknown) (no (unknown) (unknown) at home with her (units (unknown) date) ADLs. He also states unknown) that he is nervous about her falling (unknown) (no (unknown) (unknown) at the (units (unkno wn) date) unknown) (unknown) (no (unknown) (unknown) controlled with (units (unknown) date) oxycodone. It also unknown) seems like patient is not taking the (unknown) (no (unknown) (unknown) day and she wished (units (unknown) date) to grieve at home. unknown) Patient is brought in by her son today, (unknown) (no (unknown) (unknown) densities.? (units (un known) date) unknown) (unknown) (no (unknown) (unknown) depression, Denies (units (unknown) date) homicidal ideation unknown) and Denies suicidal ideation (unknown) (no (unknown) (unknown) diarrhea, Denies (units (unknown) date) nausea and Denies unknown) vomiting (unknown) (no (unknown) (unknown) discharge. TTP (units (unknown) date) unknown) (unknown) (no (unknown) (unknown) discharge. UA (units ( unknown) date) indicative of UTI. unknown) Procalcitonin 1.56. WBC elevated to 14. (unknown) (no (unknown) (unknown) dizziness, syncope. (unit s (unknown) date) unknown) (unknown) (no (unknown) (unknown) enoxaparin 40 (units ( unknown) date) mg/0.4 mL 40 mg (0.4 unknown) mL) SUBCUT DAILY 05/02/22 (unknown) (no (unknown) (unknown) expected (units (unkno wn) date) positions.? The hip unknown) joint appears congruent.? A fracture is also seen (unknown) (no (unknown) (unknown) falls, Denies (units ( unknown) date) lethargy and Denies unknown) weakness (unknown) (no (unknown) (unknown) folic acid 1 mg (units (unknown) date) tablet 1 mg PO DAILY unknown) #30 tabs 05/02/22 (unknown) (no (unknown) (unknown) household members: (units (unknown) date) none unknown) (unknown) (no (unknown) (unknown) in (units (unkno wn) date) unknown) (unknown) (no (unknown) (unknown) including erythema, (unit s (unknown) date) swelling, purulence. unknown) There is a small amount of serous (unknown) (no (unknown) (unknown) left ischial (units (u nknown) date) tuberosity similar unknown) to prior x-ray on 04/29/2022.? Surrounding (unknown) (no (unknown) (unknown) lightheadedness, (units (unknown) date) Denies palpitations, unknown) Denies dyspnea, Denies dyspnea on exertion (unknown) (no (unknown) (unknown) mcg tablet (units (unk nown) date) (Tab-A-Kevin) unknown) (unknown) (no (unknown) (unknown) medical clearance (units (unknown) date) for acceptance into unknown) a SNF. 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 (units (unkno wn) date) unknown) (unknown) (no (unknown) (unknown) on 04/30/2022, had (units (unknown) date) surgical fixation. unknown) Patient elected to go home after the (unknown) (no (unknown) (unknown) on obtaining (units (u nknown) date) placement. Surgical unknown) incisions without overt signs of infections (unknown) (no (unknown) (unknown) oral powder packet (units (unknown) date) ea unknown) (unknown) (no (unknown) (unknown) oxycodone 5 mg (units (unknown) date) tablet 5 mg PO Q4HR unknown) PRN Pain, Moderate 05/02/22 (unknown) (no (unknown) (unknown) oxycodone as often (units (unknown) date) as prescribed. unknown) Patient denies fever, chills, chest pain, (unknown) (no (unknown) (unknown) placed into a SNF. (units (unknown) date) He will evaluate the unknown) patient. (unknown) (no (unknown) (unknown) polyethylene glycol (unit s (unknown) date) 3350 17 gram 17 g PO unknown) DAILY PRN Constipation #30 05/02/22 (unknown) (no (unknown) (unknown) presents to the ED (units (unknown) date) to avail of a SNF unknown) facility. A hip fracture in the left hip (unknown) (no (unknown) (unknown) presents to the ED (units (unknown) date) to avail of a SNF unknown) facility. Will obtain labs, urine for (unknown) (no (unknown) (unknown) sclerosis is (units (u nknown) date) unknown) (unknown) (no (unknown) (unknown) sennosides 8.6 mg (units (unknown) date) tablet (senna) 8.6 unknown) mg PO BID PRN Constipation #30 05/02/22 (unknown) (no (unknown) (unknown) shortness of breath, (unit s (unknown) date) abdominal pain, unknown) nausea, vomiting, dysuria, lightheadedness, (unknown) (no (unknown) (unknown) subcutaneous (units (u nknown) date) syringe (Lovenox) unknown) days #12 mL (unknown) (no (unknown) (unknown) such as swelling, (units (unknown) date) erythema, purulence. unknown) There is a small amount of serous (unknown) (no (unknown) (unknown) surgery as opposed (units (unknown) date) to going into a SNF unknown) F, due to her expiring the same (unknown) (no (unknown) (unknown) tabs (units (unkno wn) date) unknown) (unknown) (no (unknown) (unknown) thiamine (units (unkno wn) date) mononitrate (vit B1) unknown) 100 100 mg PO DAILY #30 tabs 05/02/22 (unknown) (no (unknown) (unknown) tissue (units (unkno wn) date) unknown) (unknown) (no (unknown) (unknown) unremarkable.? (units (unknown) date) unknown) (unknown) (no (unknown) (unknown) wheezing (units (unkno wn) date) unknown) (unknown) (no (unknown) (unknown) who arrived from (units (unknown) date) [facility] yesterday and unknown) observe that his mother was unable to cope Result panel 45 (unknown) (no (unknown) (unknown) (no value) (units (unk nown) date) unknown) (unknown) (no (unknown) (unknown) (1-3) #30 tabs (units (unknown) date) unknown) (unknown) (no (unknown) (unknown) (4-6) #30 tabs (units (unknown) date) unknown) (unknown) (no (unknown) (unknown) [id number] (units (unkno wn) date) unknown) (unknown) (no (unknown) (unknown) 1. Left (units (unkno wn) date) intertrochanteric unknown) hip fracture with good alignment. (unknown) (no (unknown) (unknown) 05/04/22 05/04/22 (units (unknown) date) 05/04/22 Range/Units unknown) (unknown) (no (unknown) (unknown) 05/04/22 16:46 (units (unknown) date) unknown) (unknown) (no (unknown) (unknown) 05/04/22 16:56 (units (unknown) date) unknown) (unknown) (no (unknown) (unknown) 05/04/22 16:59 (units (unknown) date) unknown) (unknown) (no (unknown) (unknown) 05/04/22 17:25 (units (unknown) date) unknown) (unknown) (no (unknown) (unknown) 05/04/22 17:41 (units (unknown) date) unknown) (unknown) (no (unknown) (unknown) 05/04/22 18:20 (units (unknown) date) unknown) (unknown) (no (unknown) (unknown) 05/04/22 18:46 (units (unknown) date) unknown) (unknown) (no (unknown) (unknown) 05/04/22 19:32 (units (unknown) date) unknown) (unknown) (no (unknown) (unknown) 05/04/22 19:33 (units (unknown) date) unknown) (unknown) (no (unknown) (unknown) 05/04/22 (units (unkno wn) date) unknown) (unknown) (no (unknown) (unknown) 05/05/22 05:00 (units (unknown) date) unknown) (unknown) (no (unknown) (unknown) 05/06/22 05:00 (units (unknown) date) unknown) (unknown) (no (unknown) (unknown) 05/07/22 05:00 (units (unknown) date) unknown) (unknown) (no (unknown) (unknown) 15:42 05/04/22 (units (unknown) date) unknown) (unknown) (no (unknown) (unknown) 16:46 16:46 16:46 (units (unknown) date) unknown) (unknown) (no (unknown) (unknown) 16:46 16:46 17:41 (units (unknown) date) unknown) (unknown) (no (unknown) (unknown) 19:31 (units (unkno wn) date) unknown) (unknown) (no (unknown) (unknown) 2. Fracture of the (units (unknown) date) left ischial unknown) tuberosity with sclerosis.? (unknown) (no (unknown) (unknown) 23:53.? [place] (units (unknown) date) unknown) (unknown) (no (unknown) (unknown) 61-year-old female (units (unknown) date) with a past medical unknown) history of alcohol and tobacco use (unknown) (no (unknown) (unknown) ? (units (unkno wn) date) unknown) (unknown) (no (unknown) (unknown) ALT (<35) IU/L (units (unknown) date) unknown) (unknown) (no (unknown) (unknown) ALT 19 (<35) IU/L (units (unknown) date) unknown) (unknown) (no (unknown) (unknown) AST (14-36) IU/L (units (unknown) date) unknown) (unknown) (no (unknown) (unknown) AST 40 H (14-36) (units (unknown) date) IU/L unknown) (unknown) (no (unknown) (unknown) Acetaminophen (units ( unknown) date) (Acetaminophen 325 unknown) Mg Tablet) 650 mg PO Q6HR PRN (unknown) (no (unknown) (unknown) Admit Date/Time: (units (unknown) date) 05/04/22 19:33 unknown) (unknown) (no (unknown) (unknown) Admit Provider: (units (unknown) date) Elvia Gtz unknown) (unknown) (no (unknown) (unknown) Age/Sex: 61 / F (units (unknown) date) unknown) (unknown) (no (unknown) (unknown) Albumin (3.5-5.0) (units (unknown) date) g/dL unknown) (unknown) (no (unknown) (unknown) Albumin 3.3 L (units ( unknown) date) (3.5-5.0) g/dL unknown) (unknown) (no (unknown) (unknown) Albumin/Globulin (units (unknown) date) Ratio (1.0-2.8) unknown) (unknown) (no (unknown) (unknown) Albumin/Globulin (units (unknown) date) Ratio 0.9 L unknown) (1.0-2.8) (unknown) (no (unknown) (unknown) Alcohol type: wine (units (unknown) date) unknown) (unknown) (no (unknown) (unknown) Alkaline (units (unkno wn) date) Phosphatase (38-126) unknown) U/L (unknown) (no (unknown) (unknown) Alkaline (units (unkno wn) date) Phosphatase 115 unknown) (38-126) U/L (unknown) (no (unknown) (unknown) Allergic/Immunologi (unit s (unknown) date) c unknown) (unknown) (no (unknown) (unknown) Allergic/Immunologi (unit s (unknown) date) c: Denies urticaria, unknown) Denies throat swelling and Denies (unknown) (no (unknown) (unknown) Allergies (units (unkn own) date) unknown) (unknown) (no (unknown) (unknown) Allergy/AdvReac (units (unknown) date) Type Severity unknown) Reaction Status Date / Time (unknown) (no (unknown) (unknown) Amorphous Sediment (units (unknown) date) 1 unknown) (unknown) (no (unknown) (unknown) Amorphous Sediment (units (unknown) date) unknown) (unknown) (no (unknown) (unknown) Approved by: Steven (unit s (unknown) date) Polly Quiroz on unknown) 05/04/2022 at 18:22 ? (unknown) (no (unknown) (unknown) Approved by: Steven (unit s (unknown) date) Polly Quiroz on unknown) 05/04/2022 at 18:26 ? (unknown) (no (unknown) (unknown) Auscultation:?clear (unit s (unknown) date) to auscultation unknown) bilaterally (unknown) (no (unknown) (unknown) BUN (7-17) mg/dL (units (unknown) date) unknown) (unknown) (no (unknown) (unknown) BUN 4 L (7-17) (units (unknown) date) mg/dL unknown) (unknown) (no (unknown) (unknown) BUN/Creatinine (units (unknown) date) Ratio (6-22) unknown) (unknown) (no (unknown) (unknown) BUN/Creatinine (units (unknown) date) Ratio 16.0 (6-22) unknown) (unknown) (no (unknown) (unknown) Baso # (Auto) (units ( unknown) date) (0-100) /uL unknown) (unknown) (no (unknown) (unknown) Baso # (Auto) 100 (units (unknown) date) (0-100) /uL unknown) (unknown) (no (unknown) (unknown) Baso % (Auto) (0-2) (unit s (unknown) date) % unknown) (unknown) (no (unknown) (unknown) Baso % (Auto) 0.6 (units (unknown) date) (0-2) % unknown) (unknown) (no (unknown) (unknown) Bisacodyl (units (unkn own) date) (Bisacodyl 5 Mg unknown) Tablet) 10 mg PO DAILY PRN (unknown) (no (unknown) (unknown) Blood Culture Stat (units (unknown) date) unknown) (unknown) (no (unknown) (unknown) Blood Pressure (units (unknown) date) 120/69 05/04/22 unknown) 15:42 (unknown) (no (unknown) (unknown) Blood Pressure (units (unknown) date) 120/69 155/84 H unknown) (unknown) (no (unknown) (unknown) Bones and chest (units (unknown) date) wall:? No suspicious unknown) bony lesions.? Overlying soft tissues (unknown) (no (unknown) (unknown) Bones:? Patient is (units (unknown) date) status post left hip unknown) arthroplasty, with hardware components (unknown) (no (unknown) (unknown) Both surgical (units ( unknown) date) incisions appear to unknown) be healing without overt signs of infection (unknown) (no (unknown) (unknown) CK-MB (CK-2) Rel (units (unknown) date) Index TNP unknown) (unknown) (no (unknown) (unknown) CK-MB (CK-2) Rel (units (unknown) date) Index unknown) (unknown) (no (unknown) (unknown) CK-MB (CK-2) TNP (units (unknown) date) unknown) (unknown) (no (unknown) (unknown) CK-MB (CK-2) (units (u nknown) date) unknown) (unknown) (no (unknown) (unknown) COMPARISON:? [facility] date[facility], CR, XR unknown) CHEST 1V, 04/29/2022, 23:53. (unknown) (no (unknown) (unknown) COMPARISON:? [facility] (unit s (unknown) date) [facility], CR, XR HIP unknown) W PEL IF DONE LT 2V, 04/29/2022, (unknown) (no (unknown) (unknown) COVID19 -Nasal (units (unknown) date) RAPID/Pre-Proc Stat unknown) (unknown) (no (unknown) (unknown) Calcium (8.4-10.2) (units (unknown) date) mg/dL unknown) (unknown) (no (unknown) (unknown) Calcium 8.6 (units (un known) date) (8.4-10.2) mg/dL unknown) (unknown) (no (unknown) (unknown) Carbon Dioxide (units (unknown) date) (22-32) mmol/L unknown) (unknown) (no (unknown) (unknown) Carbon Dioxide 24 (units (unknown) date) (22-32) mmol/L unknown) (unknown) (no (unknown) (unknown) Cardio (units (unkno wn) date) unknown) (unknown) (no (unknown) (unknown) Cardiovascular (units (unknown) date) unknown) (unknown) (no (unknown) (unknown) Cardiovascular: (units (unknown) date) Denies chest pain, unknown) Denies irregular heart rhythm, Denies (unknown) (no (unknown) (unknown) Cefepime HCl 1 gm/ (units (unknown) date) Sodium (Chloride) unknown) 100 mls @ 200 mls/hr IV Q12H ALFREDA (unknown) (no (unknown) (unknown) Ceftriaxone Sodium (units (unknown) date) 1,000 mg/ (Sodium unknown) Chloride) 100 mls @ 200 mls/hr IV NOW ONE (unknown) (no (unknown) (unknown) Chest x-ray: (units (u nknown) date) unknown) (unknown) (no (unknown) (unknown) Chief Complaint: (units (unknown) date) Extremity Injury, unknown) Lower (unknown) (no (unknown) (unknown) Chloride (98-107) (units (unknown) date) mmol/L unknown) (unknown) (no (unknown) (unknown) Chloride 95 L (units ( unknown) date) (98-107) mmol/L unknown) (unknown) (no (unknown) (unknown) Comments: (units (unkn own) date) unknown) (unknown) (no (unknown) (unknown) Complete Blood (units (unknown) date) Count AUTO DIFF unknown) DAILY (unknown) (no (unknown) (unknown) Complete Blood (units (unknown) date) Count AUTO DIFF Stat unknown) (unknown) (no (unknown) (unknown) Comprehensive (units ( unknown) date) Metabolic Panel unknown) DAILY (unknown) (no (unknown) (unknown) Comprehensive (units ( unknown) date) Metabolic Panel Stat unknown) (unknown) (no (unknown) (unknown) Const (units (unkno wn) date) unknown) (unknown) (no (unknown) (unknown) Constitutional (units (unknown) date) unknown) (unknown) (no (unknown) (unknown) Constitutional: (units (unknown) date) Denies chills, unknown) Denies fatigue, Denies fever(s), Denies frequent (unknown) (no (unknown) (unknown) Consult to (units (unk nown) date) Dietitian, Adult unknown) Stat (unknown) (no (unknown) (unknown) 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 - (units (unknown) date) Optical Goods Worker Stat unknown) (unknown) (no (unknown) (unknown) Consult to Pastoral (unit s (unknown) date) Services Stat unknown) (unknown) (no (unknown) (unknown) Consult to Physical (unit s (unknown) date) Therapy Evaluate + unknown) Treat (unknown) (no (unknown) (unknown) Course (units (unkno wn) date) unknown) (unknown) (no (unknown) (unknown) Creatinine (units (unk nown) date) (0.52-1.04) mg/dL unknown) (unknown) (no (unknown) (unknown) Creatinine 0.25 L (units (unknown) date) (0.52-1.04) mg/dL unknown) (unknown) (no (unknown) (unknown) : 1960 (units (unknown) date) Acct:[id number] unknown) (unknown) (no (unknown) (unknown) Date of Service: (units (unknown) date) 05/04/22 unknown) (unknown) (no (unknown) (unknown) Denies frequent (units (unknown) date) falls, Denies loss unknown) of vision, Denies numbness, Denies tingling (unknown) (no (unknown) (unknown) Denies loss of (units (unknown) date) vision unknown) (unknown) (no (unknown) (unknown) Denies numbness and (unit s (unknown) date) Denies tingling unknown) (unknown) (no (unknown) (unknown) Departure (units (unkn own) date) unknown) (unknown) (no (unknown) (unknown) Dictated by: Steven (unit s (unknown) date) Polly Quiroz on unknown) 05/04/2022 at 18:20 ? ? (unknown) (no (unknown) (unknown) Dictated by: Steven (unit s (unknown) date) Polly Quiroz on unknown) 05/04/2022 at 18:23 ? ? (unknown) (no (unknown) (unknown) Discharge Plan (units (unknown) date) unknown) (unknown) (no (unknown) (unknown) Discontinued (units (u nknown) date) Medications unknown) (unknown) (no (unknown) (unknown) Documented By: ZGG (units (unknown) date) unknown) (unknown) (no (unknown) (unknown) Docusate Sodium (units (unknown) date) (Docusate 100 Mg unknown) Capsule) 100 mg PO BID ALFREDA (unknown) (no (unknown) (unknown) ED Orders (units (unkn own) date) unknown) (unknown) (no (unknown) (unknown) EKG-12 Lead Stat (units (unknown) date) unknown) (unknown) (no (unknown) (unknown) ENT (units (unkno wn) date) unknown) (unknown) (no (unknown) (unknown) ER Physician: (units ( unknown) date) Georges,Hyma P.A-C unknown) (unknown) (no (unknown) (unknown) Ears, Nose, Mouth, (units (unknown) date) and Throat: Denies unknown) change in voice, Denies dizziness, Denies (unknown) (no (unknown) (unknown) Ears:?hearing (units ( unknown) date) grossly normal unknown) bilaterally (unknown) (no (unknown) (unknown) Effort + (units (unkno wn) date) Inspection:?normal unknown) respiratory effort (unknown) (no (unknown) (unknown) Emergency Report (units (unknown) date) unknown) (unknown) (no (unknown) (unknown) Endocrine (units (unkn own) date) unknown) (unknown) (no (unknown) (unknown) Endocrine: Denies (units (unknown) date) fatigue, Denies unknown) flushing and Denies palpitations (unknown) (no (unknown) (unknown) Enoxaparin Sodium (units (unknown) date) (Enoxaparin 40 unknown) Mg/0.4 Ml Syringe) 40 mg SUBCUT DAILY ALFREDA (unknown) (no (unknown) (unknown) Eos # (Auto) (units (u nknown) date) (0-450) /uL unknown) (unknown) (no (unknown) (unknown) Eos # (Auto) 100 (units (unknown) date) (0-450) /uL unknown) (unknown) (no (unknown) (unknown) Eos % (Auto) (2-4) (units (unknown) date) % unknown) (unknown) (no (unknown) (unknown) Eos % (Auto) 0.4 L (units (unknown) date) (2-4) % unknown) (unknown) (no (unknown) (unknown) Estimated GFR > 60 (units (unknown) date) (>60) mL/min unknown) (unknown) (no (unknown) (unknown) Estimated GFR (>60) (unit s (unknown) date) mL/min unknown) (unknown) (no (unknown) (unknown) Exam Narrative: (units (unknown) date) unknown) (unknown) (no (unknown) (unknown) Exam (units (unkno wn) date) unknown) (unknown) (no (unknown) (unknown) Eyes (units (unkno wn) date) unknown) (unknown) (no (unknown) (unknown) Eyes: Denies change (unit s (unknown) date) in vision, Denies unknown) eye discharge, Denies irritation and (unknown) (no (unknown) (unknown) FINDINGS:? (units (unk nown) date) unknown) (unknown) (no (unknown) (unknown) Face and (units (unkno wn) date) sinus:?normal facial unknown) exam and sinuses nontender (unknown) (no (unknown) (unknown) Folic Acid (Folic (units (unknown) date) Acid 1 Mg Tablet) 1 unknown) mg PO DAILY ALFREDA (unknown) (no (unknown) (unknown) Gastrointestinal (units (unknown) date) unknown) (unknown) (no (unknown) (unknown) Gastrointestinal: (units (unknown) date) Denies abdominal unknown) pain, Denies change in bowel habits, Denies (unknown) (no (unknown) (unknown) General (units (unkno wn) date) unknown) (unknown) (no (unknown) (unknown) General:?appearance (unit s (unknown) date) normal, both eyes unknown) and all related structures (unknown) (no (unknown) (unknown) General:?cooperativ (unit s (unknown) date) e, healthy appearing unknown) and comfortable (unknown) (no (unknown) (unknown) General:?patient (units (unknown) date) alert, patient awake unknown) and patient oriented x3 (unknown) (no (unknown) (unknown) Genitourinary (units ( unknown) date) unknown) (unknown) (no (unknown) (unknown) Genitourinary: (units (unknown) date) Denies hematuria, unknown) Denies flank pain, Denies urinary incontinence (unknown) (no (unknown) (unknown) Globulin (1.7-4.1) (units (unknown) date) g/dL unknown) (unknown) (no (unknown) (unknown) Globulin 3.6 (units (u nknown) date) (1.7-4.1) g/dL unknown) (unknown) (no (unknown) (unknown) Glucose (80-110) (units (unknown) date) mg/dL unknown) (unknown) (no (unknown) (unknown) Glucose 86 (80-110) (unit s (unknown) date) mg/dL unknown) (unknown) (no (unknown) (unknown) HENMT (units (unkno wn) date) unknown) (unknown) (no (unknown) (unknown) HPI - Extremity (units (unknown) date) Injury (Lower) unknown) (unknown) (no (unknown) (unknown) HPI Narrative: (units (unknown) date) unknown) (unknown) (no (unknown) (unknown) Hct (36-46) % (units ( unknown) date) unknown) (unknown) (no (unknown) (unknown) Hct 28.8 L (36-46) (units (unknown) date) % unknown) (unknown) (no (unknown) (unknown) Head:?normal to (units (unknown) date) inspection unknown) (unknown) (no (unknown) (unknown) Hematologic/Lymphat (unit s (unknown) date) ic unknown) (unknown) (no (unknown) (unknown) Hematologic/Lymphat (unit s (unknown) date) ic: Denies easy unknown) bruising (unknown) (no (unknown) (unknown) Hgb (12.0-16.0) (units (unknown) date) g/dL unknown) (unknown) (no (unknown) (unknown) Hgb 9.9 L (units (unkn own) date) (12.0-16.0) g/dL unknown) (unknown) (no (unknown) (unknown) Hip pain (units (unkno wn) date) unknown) (unknown) (no (unknown) (unknown) History of Present (units (unknown) date) Illness unknown) (unknown) (no (unknown) (unknown) Hospital, CR, XR (units (unknown) date) HIP W PEL IF DONE LT unknown) 2V, 04/30/2022, 15:29. (unknown) (no (unknown) (unknown) Hydrocodone (units (un known) date) Bitart/Acetaminophen unknown) (Hydrocodone/Acet 10/325 Tablet) 1 tab PO Q4HR (unknown) (no (unknown) (unknown) Hydromorphone HCl (units (unknown) date) (Hydromorphone 1 Mg unknown) Inj) 1 mg IV NOW ONE (unknown) (no (unknown) (unknown) IMPRESSION:? No (units (unknown) date) acute unknown) cardiopulmonary abnormality. (unknown) (no (unknown) (unknown) IMPRESSION:? (units (u nknown) date) unknown) (unknown) (no (unknown) (unknown) INDICATIONS:? Flu (units (unknown) date) like symptoms unknown) (unknown) (no (unknown) (unknown) INDICATIONS:? sp (units (unknown) date) hip replacement unknown) after fall, gen weakness, increased WBC (unknown) (no (unknown) (unknown) IV fluids. (units (unk nown) date) Hospitalist unknown) Ismael consulted for admission until patient can be (unknown) (no (unknown) (unknown) Imaging Data (units (u nknown) date) unknown) (unknown) (no (unknown) (unknown) Initial Vital Signs (unit s (unknown) date) unknown) (unknown) (no (unknown) (unknown) Initial Vital (units ( unknown) date) Signs: unknown) (unknown) (no (unknown) (unknown) Integumentary (units ( unknown) date) unknown) (unknown) (no (unknown) (unknown) Integumentary/Breas (unit s (unknown) date) ts unknown) (unknown) (no (unknown) (unknown) [facility] (units (unknown) date) [address] unknown) [place] [address] (unknown) (no (unknown) (unknown) Lab Data (units (unkno wn) date) unknown) (unknown) (no (unknown) (unknown) Lab Results (units (un known) date) unknown) (unknown) (no (unknown) (unknown) Labs: (units (unkno wn) date) unknown) (unknown) (no (unknown) (unknown) Lactate (0.7-2.1) (units (unknown) date) mmol/L unknown) (unknown) (no (unknown) (unknown) Lactate (Lactic (units (unknown) date) Acid) Stat unknown) (unknown) (no (unknown) (unknown) Lactate 1.8 (units (un known) date) (0.7-2.1) mmol/L unknown) (unknown) (no (unknown) (unknown) Last Admin: (units (un known) date) 05/04/22 18:27 Dose: unknown) 1,000 mls/hr (unknown) (no (unknown) (unknown) Last Admin: (units (un known) date) 05/04/22 19:03 Dose: unknown) 1 mg (unknown) (no (unknown) (unknown) Last Admin: (units (un known) date) 05/04/22 19:03 Dose: unknown) 4 mg (unknown) (no (unknown) (unknown) Last Admin: (units (un known) date) 05/04/22 19:15 Dose: unknown) 200 mls/hr (unknown) (no (unknown) (unknown) Lorazepam (units (unkn own) date) (Lorazepam 1 Mg unknown) Tablet) 0 mg PO CIWAPRN PRN; Protocol (unknown) (no (unknown) (unknown) Lungs and pleura:? (units (unknown) date) Lungs are clear.? No unknown) pleural effusions or pneumothorax.? (unknown) (no (unknown) (unknown) Lymph # (Auto) (units (unknown) date) (4477-1728) /uL unknown) (unknown) (no (unknown) (unknown) Lymph # (Auto) 2200 (unit s (unknown) date) (9519-3686) /uL unknown) (unknown) (no (unknown) (unknown) Lymph % (Auto) (units (unknown) date) (25-40) % unknown) (unknown) (no (unknown) (unknown) Lymph % (Auto) 15.3 (unit s (unknown) date) L (25-40) % unknown) (unknown) (no (unknown) (unknown) MCH (26-34) PG (units (unknown) date) unknown) (unknown) (no (unknown) (unknown) MCH 35.6 H (26-34) (units (unknown) date) PG unknown) (unknown) (no (unknown) (unknown) MCHC (30-36) % (units (unknown) date) unknown) (unknown) (no (unknown) (unknown) MCHC 34.4 (30-36) % (unit s (unknown) date) unknown) (unknown) (no (unknown) (unknown) MCV (80-100) fL (units (unknown) date) unknown) (unknown) (no (unknown) (unknown) MCV 103.5 H (units (un known) date) (80-100) fL unknown) (unknown) (no (unknown) (unknown) MDM - Extremity (units (unknown) date) Injury (Lower) unknown) (unknown) (no (unknown) (unknown) MDM Narrative (units ( unknown) date) unknown) (unknown) (no (unknown) (unknown) Magnesium DAILY (units (unknown) date) unknown) (unknown) (no (unknown) (unknown) Mediastinum:? (units ( unknown) date) Mediastinal contours unknown) appear normal.? Heart size is normal.? (unknown) (no (unknown) (unknown) Medical decision (units (unknown) date) making narrative: unknown) (unknown) (no (unknown) (unknown) Medication (units (unk nown) date) Instructions unknown) Recorded (unknown) (no (unknown) (unknown) Mode of arrival: (units (unknown) date) EMS unknown) (unknown) (no (unknown) (unknown) [place] # (Auto) (units ( unknown) date) (0-900) /uL unknown) (unknown) (no (unknown) (unknown) [place] # (Auto) 1200 (units (unknown) date) H (0-900) /uL unknown) (unknown) (no (unknown) (unknown) [place] % (Auto) (units ( unknown) date) (3-14) % unknown) (unknown) (no (unknown) (unknown) [place] % (Auto) 8.1 (units (unknown) date) (3-14) % unknown) (unknown) (no (unknown) (unknown) Mouth:?oral mucosae (unit s (unknown) date) normal unknown) (unknown) (no (unknown) (unknown) Multivitamins (units ( unknown) date) (Multivitamin 1 unknown) Tablet) 1 tab PO DAILY ALFREDA (unknown) (no (unknown) (unknown) Musculoskeletal (units (unknown) date) unknown) (unknown) (no (unknown) (unknown) Musculoskeletal: (units (unknown) date) Denies back pain, unknown) Denies muscle weakness, Denies neck pain, (unknown) (no (unknown) (unknown) Narrative (units (unkn own) date) unknown) (unknown) (no (unknown) (unknown) Neck (units (unkno wn) date) unknown) (unknown) (no (unknown) (unknown) Neck:?normal visual (unit s (unknown) date) inspection and no unknown) lymphadenopathy noted (unknown) (no (unknown) (unknown) Neuro (units (unkno wn) date) unknown) (unknown) (no (unknown) (unknown) Neurologic (units (unk nown) date) unknown) (unknown) (no (unknown) (unknown) Neurologic: Denies (units (unknown) date) behavioral changes, unknown) Denies confusion, Denies dizziness, (unknown) (no (unknown) (unknown) Neut # (Auto) (units ( unknown) date) (7268-0858) /uL unknown) (unknown) (no (unknown) (unknown) Neut # (Auto) 45082 (unit s (unknown) date) H (8064-3927) /uL unknown) (unknown) (no (unknown) (unknown) Neut % (Auto) (units ( unknown) date) (50-75) % unknown) (unknown) (no (unknown) (unknown) Neut % (Auto) 75.6 (units (unknown) date) H (50-75) % unknown) (unknown) (no (unknown) (unknown) Nicotine (Nicotine (units (unknown) date) 14 Patch) 14 mg TOP unknown) DAILY ALFREDA (unknown) (no (unknown) (unknown) Nose:?external nose (unit s (unknown) date) normal unknown) (unknown) (no (unknown) (unknown) Ondansetron HCl (units (unknown) date) (Ondansetron 4 Mg unknown) Odt) 4 mg PO Q6H PRN (unknown) (no (unknown) (unknown) Ondansetron HCl (units (unknown) date) (Ondansetron 4 Mg/2 unknown) Ml Inj) 4 mg IV NOW ONE (unknown) (no (unknown) (unknown) Ordered: (units (unkno wn) date) unknown) (unknown) (no (unknown) (unknown) Orders (units (unkno wn) date) unknown) (unknown) (no (unknown) (unknown) Oxycodone HCl (units ( unknown) date) (Oxycodone Ir 5 Mg unknown) Tablet) 5 mg PO Q4HR PRN (unknown) (no (unknown) (unknown) Oxygen Delivery (units (unknown) date) Method 05/04/22 unknown) 15:42 (unknown) (no (unknown) (unknown) Oxygen Delivery (units (unknown) date) Method Room Air Room unknown) Air (unknown) (no (unknown) (unknown) PRN Reason: Alcohol (unit s (unknown) date) Withdrawal unknown) (unknown) (no (unknown) (unknown) PRN Reason: (units (un known) date) Constipation unknown) (unknown) (no (unknown) (unknown) PRN Reason: (units (un known) date) Fever/Mild Pain unknown) (1-3) (unknown) (no (unknown) (unknown) PRN Reason: Nausea (units (unknown) date) And Vomiting unknown) (unknown) (no (unknown) (unknown) PRN Reason: Pain, (units (unknown) date) Moderate (4-6) unknown) (unknown) (no (unknown) (unknown) PRN Reason: Pain, (units (unknown) date) Severe (7-10) unknown) (unknown) (no (unknown) (unknown) PRN (units (unkno wn) date) unknown) (unknown) (no (unknown) (unknown) PROCEDURE:? XR (units (unknown) date) CHEST 1V unknown) (unknown) (no (unknown) (unknown) PROCEDURE:? XR (units (unknown) date) PELVIS 1-2V unknown) (unknown) (no (unknown) (unknown) Patient History (units (unknown) date) unknown) (unknown) (no (unknown) (unknown) Patient: (units (unkno wn) date) Nichol Meng unknown) MR#: [id number] (unknown) (no (unknown) (unknown) Pelvic Xray: (units (u nknown) date) unknown) (unknown) (no (unknown) (unknown) Penicillins (units (un known) date) [PENICILLINS] unknown) AdvReac Intermediate rash Verified 05/04/22 16:59 (unknown) (no (unknown) (unknown) Plt Count (150-400) (unit s (unknown) date) X103/uL unknown) (unknown) (no (unknown) (unknown) Plt Count 407 H (units (unknown) date) (150-400) X103/uL unknown) (unknown) (no (unknown) (unknown) Polyethylene Glycol (unit s (unknown) date) (Polyethylene Glycol unknown) 3350 17 Gm Powd.Pack) 17 gm PO DAILY (unknown) (no (unknown) (unknown) Potassium (3.4-5.1) (unit s (unknown) date) mmol/L unknown) (unknown) (no (unknown) (unknown) Potassium 4.0 (units ( unknown) date) (3.4-5.1) mmol/L unknown) (unknown) (no (unknown) (unknown) Previous Rx's (units ( unknown) date) unknown) (unknown) (no (unknown) (unknown) Procalcitonin (units ( unknown) date) (<0.5) ng/mL unknown) (unknown) (no (unknown) (unknown) Procalcitonin 1.56 (units (unknown) date) H (<0.5) ng/mL unknown) (unknown) (no (unknown) (unknown) Procalcitonin Stat (units (unknown) date) unknown) (unknown) (no (unknown) (unknown) Psychiatric (units (un known) date) unknown) (unknown) (no (unknown) (unknown) Psychiatric: Denies (units (unknown) date) anxiety, Denies unknown) behavioral changes, Denies confusion, Denies (unknown) (no (unknown) (unknown) Pulse Oximetry 99 (units (unknown) date) 05/04/22 15:42 unknown) (unknown) (no (unknown) (unknown) Pulse Oximetry 99 (units (unknown) date) 98 unknown) (unknown) (no (unknown) (unknown) Pulse Rate 95 H (units (unknown) date) 05/04/22 15:42 unknown) (unknown) (no (unknown) (unknown) Pulse Rate 95 H 109 (unit s (unknown) date) H unknown) (unknown) (no (unknown) (unknown) RBC (4.0-5.2) (units ( unknown) date) X106/uL unknown) (unknown) (no (unknown) (unknown) RBC 2.79 L (units (unk nown) date) (4.0-5.2) X106/uL unknown) (unknown) (no (unknown) (unknown) RDW (11.6-14.8) % (units (unknown) date) unknown) (unknown) (no (unknown) (unknown) RDW 13.3 (units (unkno wn) date) (11.6-14.8) % unknown) (unknown) (no (unknown) (unknown) ROS Unobtainable: (units (unknown) date) All systems reviewed unknown) + are unremarkable except as noted in HPI (unknown) (no (unknown) (unknown) Radiologist's (units ( unknown) date) Impression: unknown) (unknown) (no (unknown) (unknown) Rate:?regular rate (units (unknown) date) unknown) (unknown) (no (unknown) (unknown) Related Data (units (u nknown) date) unknown) (unknown) (no (unknown) (unknown) Resp (units (unkno wn) date) unknown) (unknown) (no (unknown) (unknown) Respiratory Rate 17 (unit s (unknown) date) 10 L unknown) (unknown) (no (unknown) (unknown) Respiratory Rate 17 (unit s (unknown) date) 05/04/22 15:42 unknown) (unknown) (no (unknown) (unknown) Respiratory (units (un known) date) unknown) (unknown) (no (unknown) (unknown) Respiratory: Denies (units (unknown) date) cough, Denies unknown) dyspnea, Denies dyspnea on exertion and Denies (unknown) (no (unknown) (unknown) Result diagrams: (units (unknown) date) unknown) (unknown) (no (unknown) (unknown) Review of Systems (units (unknown) date) unknown) (unknown) (no (unknown) (unknown) Rhythm:?regular (units (unknown) date) rhythm unknown) (unknown) (no (unknown) (unknown) SARS-CoV-2 (PCR) (units (unknown) date) (Negative) unknown) (unknown) (no (unknown) (unknown) SARS-CoV-2 (PCR) (units (unknown) date) Negative (Negative) unknown) (unknown) (no (unknown) (unknown) Sennosides (units (unk nown) date) (Sennosides 8.6 Mg unknown) Tablet) 8.6 mg PO BID PRN (unknown) (no (unknown) (unknown) Signed By: (units (unk nown) date) unknown) (unknown) (no (unknown) (unknown) Skin/Breast: Denies (unit s (unknown) date) pruritus, Denies unknown) erythema, Denies rash and Denies wounds (unknown) (no (unknown) (unknown) Smoking Status: (units (unknown) date) Current every day unknown) smoker (unknown) (no (unknown) (unknown) Social History (units (unknown) date) (Reviewed 05/04/22 @ unknown) 19:33 by Roe Su PA-C) (unknown) (no (unknown) (unknown) Sodium (137-145) (units (unknown) date) mmol/L unknown) (unknown) (no (unknown) (unknown) Sodium 129 L (units (u nknown) date) (137-145) mmol/L unknown) (unknown) (no (unknown) (unknown) Sodium Chloride (units (unknown) date) (Normal Saline 0.9%) unknown) 1,000 mls @ 1,000 mls/hr IV BOLUS ONE (unknown) (no (unknown) (unknown) Sodium Chloride (units (unknown) date) (Normal Saline 0.9%) unknown) 1,000 mls @ 100 mls/hr IV CONT ALFREDA (unknown) (no (unknown) (unknown) Soft tissues:? (units (unknown) date) Overlying unknown) postoperative changes are noted.? No suspicious soft (unknown) (no (unknown) (unknown) Source: EMS (units (un known) date) unknown) (unknown) (no (unknown) (unknown) Stated Complaint: (units (unknown) date) Hip pain unknown) (unknown) (no (unknown) (unknown) Status post (units (un known) date) appendectomy unknown) (unknown) (no (unknown) (unknown) Status post breast (units (unknown) date) lumpectomy unknown) (unknown) (no (unknown) (unknown) Status post (units (un known) date) hysterectomy unknown) (unknown) (no (unknown) (unknown) Stop: 05/04/22 (units (unknown) date) 18:51 unknown) (unknown) (no (unknown) (unknown) Stop: 05/04/22 (units (unknown) date) 19:03 unknown) (unknown) (no (unknown) (unknown) Stop: 05/04/22 (units (unknown) date) 19:20 unknown) (unknown) (no (unknown) (unknown) Substance Use Type: (unit s (unknown) date) does not use unknown) (unknown) (no (unknown) (unknown) Surgical History (units (unknown) date) (Reviewed 05/04/22 @ unknown) 19:33 by Roe Su PA-C) (unknown) (no (unknown) (unknown) Surgical changes (units (unknown) date) and devices:? None.? unknown) (unknown) (no (unknown) (unknown) TECHNIQUE:? 1 view (units (unknown) date) of the lower pelvis unknown) acquired.? (unknown) (no (unknown) (unknown) TECHNIQUE:? One (units (unknown) date) view of the chest unknown) was acquired.? (unknown) (no (unknown) (unknown) Temperature 98 F (units (unknown) date) 05/04/22 15:42 unknown) (unknown) (no (unknown) (unknown) Temperature 98 F (units (unknown) date) unknown) (unknown) (no (unknown) (unknown) Thiamine HCl (units (u nknown) date) (Thiamine 100 Mg unknown) Tablet) 100 mg PO DAILY ALFREDA (unknown) (no (unknown) (unknown) Throat:?posterior (units (unknown) date) oropharynx normal unknown) (unknown) (no (unknown) (unknown) Time Seen by (units (u nknown) date) Provider: 05/04/22 unknown) 17:23 (unknown) (no (unknown) (unknown) Total Bilirubin (units (unknown) date) (0.2-1.3) mg/dL unknown) (unknown) (no (unknown) (unknown) Total Bilirubin 0.8 (unit s (unknown) date) (0.2-1.3) mg/dL unknown) (unknown) (no (unknown) (unknown) Total Creatine (units (unknown) date) Kinase (30-135) U/L unknown) (unknown) (no (unknown) (unknown) Total Creatine (units (unknown) date) Kinase 64 (30-135) unknown) U/L (unknown) (no (unknown) (unknown) Total Protein (units ( unknown) date) (6.3-8.2) g/dL unknown) (unknown) (no (unknown) (unknown) Total Protein 6.9 (units (unknown) date) (6.3-8.2) g/dL unknown) (unknown) (no (unknown) (unknown) Troponin + CK (units ( unknown) date) Cardiac Panel Stat unknown) (unknown) (no (unknown) (unknown) Troponin I < 0.012 (units (unknown) date) (0.01-0.034) ng/mL unknown) (unknown) (no (unknown) (unknown) Troponin I (units (unk nown) date) (0.01-0.034) ng/mL unknown) (unknown) (no (unknown) (unknown) Ur Culture (units (unk nown) date) Indicated? Specimen unknown) cultured (unknown) (no (unknown) (unknown) Ur Culture (units (unk nown) date) Indicated? unknown) (unknown) (no (unknown) (unknown) Ur Leukocyte (units (u nknown) date) Esterase (NEGATIVE) unknown) (unknown) (no (unknown) (unknown) Ur Leukocyte (units (u nknown) date) Esterase 1+ H unknown) (NEGATIVE) (unknown) (no (unknown) (unknown) Ur Specific [place] (unit s (unknown) date) <=1.005 unknown) (1.000-1.035) (unknown) (no (unknown) (unknown) Ur Specific [place] (unit s (unknown) date) (1.000-1.035) unknown) (unknown) (no (unknown) (unknown) Ur Squamous Epith (units (unknown) date) Cells (0-5/HPF) unknown) (unknown) (no (unknown) (unknown) Ur Squamous Epith (units (unknown) date) Cells 0-1 /hpf unknown) (0-5/HPF) (unknown) (no (unknown) (unknown) Urinalysis and (units (unknown) date) Microscopic Stat unknown) (unknown) (no (unknown) (unknown) Urine Appearance (units (unknown) date) Clear unknown) (unknown) (no (unknown) (unknown) Urine Appearance (units (unknown) date) unknown) (unknown) (no (unknown) (unknown) Urine Bacteria (units (unknown) date) (None) unknown) (unknown) (no (unknown) (unknown) Urine Bacteria Few (units (unknown) date) (2-10) H (None) unknown) (unknown) (no (unknown) (unknown) Urine Bilirubin (units (unknown) date) (NEGATIVE) unknown) (unknown) (no (unknown) (unknown) Urine Bilirubin (units (unknown) date) Negative (NEGATIVE) unknown) (unknown) (no (unknown) (unknown) Urine Color Yellow (units (unknown) date) unknown) (unknown) (no (unknown) (unknown) Urine Color (units (un known) date) unknown) (unknown) (no (unknown) (unknown) Urine Culture Stat (units (unknown) date) unknown) (unknown) (no (unknown) (unknown) Urine Glucose (UA) (units (unknown) date) (Negative) g/dL unknown) (unknown) (no (unknown) (unknown) Urine Glucose (UA) (units (unknown) date) Negative (Negative) unknown) g/dL (unknown) (no (unknown) (unknown) Urine Ketones (units ( unknown) date) (NEGATIVE) unknown) (unknown) (no (unknown) (unknown) Urine Ketones (units ( unknown) date) Negative (NEGATIVE) unknown) (unknown) (no (unknown) (unknown) Urine Nitrate (units ( unknown) date) (Negative) unknown) (unknown) (no (unknown) (unknown) Urine Nitrate (units ( unknown) date) Negative (Negative) unknown) (unknown) (no (unknown) (unknown) Urine Occult Blood (units (unknown) date) (Negative) unknown) (unknown) (no (unknown) (unknown) Urine Occult Blood (units (unknown) date) 1+ H (Negative) unknown) (unknown) (no (unknown) (unknown) Urine Protein (units ( unknown) date) (Negative) unknown) (unknown) (no (unknown) (unknown) Urine Protein (units ( unknown) date) Negative (Negative) unknown) (unknown) (no (unknown) (unknown) Urine RBC (0-5/HPF) (unit s (unknown) date) unknown) (unknown) (no (unknown) (unknown) Urine RBC 0-1/hpf (units (unknown) date) (0-5/HPF) unknown) (unknown) (no (unknown) (unknown) Urine Urobilinogen (units (unknown) date) (0.2) E.U./dL unknown) (unknown) (no (unknown) (unknown) Urine Urobilinogen (units (unknown) date) 0.2 (0.2) E.U./dL unknown) (unknown) (no (unknown) (unknown) Urine WBC (0-5/HPF) (unit s (unknown) date) unknown) (unknown) (no (unknown) (unknown) Urine WBC 1-5/hpf (units (unknown) date) (0-5/HPF) unknown) (unknown) (no (unknown) (unknown) Urine pH (4.5-8.0) (units (unknown) date) unknown) (unknown) (no (unknown) (unknown) Urine pH 7.0 (units (u nknown) date) (4.5-8.0) unknown) (unknown) (no (unknown) (unknown) Vital Signs - 8 hr (units (unknown) date) unknown) (unknown) (no (unknown) (unknown) Vital Signs (units (un known) date) unknown) (unknown) (no (unknown) (unknown) Vital signs: (units (u nknown) date) unknown) (unknown) (no (unknown) (unknown) WBC (4.5-11.0) (units (unknown) date) X103/uL unknown) (unknown) (no (unknown) (unknown) WBC 14.1 H (units (unk nown) date) (4.5-11.0) X103/uL unknown) (unknown) (no (unknown) (unknown) Will treat pain (units (unknown) date) with Dilaudid, unknown) Zofran. Will start Rocephin 1 g IV. Will give (unknown) (no (unknown) (unknown) Wound Culture and (units (unknown) date) Gram Stain Stat unknown) (unknown) (no (unknown) (unknown) XR chest 1V Stat (units (unknown) date) unknown) (unknown) (no (unknown) (unknown) XR pelvis 1-2V Stat (unit s (unknown) date) unknown) (unknown) (no (unknown) (unknown) [Embedded Image Not (unit s (unknown) date) Available] unknown) (unknown) (no (unknown) (unknown) acetaminophen 325 (units (unknown) date) mg tablet 650 mg PO unknown) Q6HR PRN Fever/Mild Pain 05/02/22 (unknown) (no (unknown) (unknown) again, especially (units (unknown) date) given her alcohol unknown) use. Patient's pain appears to be poorly (unknown) (no (unknown) (unknown) alcohol intake (units (unknown) date) frequency: 3 or more unknown) drinks per day (unknown) (no (unknown) (unknown) alcohol intake: (units (unknown) date) current unknown) (unknown) (no (unknown) (unknown) and Denies (units (unk nown) date) orthopnea unknown) (unknown) (no (unknown) (unknown) and Denies urinary (units (unknown) date) urgency unknown) (unknown) (no (unknown) (unknown) and Denies weakness (unit s (unknown) date) unknown) (unknown) (no (unknown) (unknown) and below (units (unkn own) date) unknown) (unknown) (no (unknown) (unknown) appear (units (unkno wn) date) unknown) (unknown) (no (unknown) (unknown) at home with her (units (unknown) date) ADLs. He also states unknown) that he is nervous about her falling (unknown) (no (unknown) (unknown) at the (units (unkno wn) date) unknown) (unknown) (no (unknown) (unknown) controlled with (units (unknown) date) oxycodone. It also unknown) seems like patient is not taking the (unknown) (no (unknown) (unknown) day and she wished (units (unknown) date) to grieve at home. unknown) Patient is brought in by her son today, (unknown) (no (unknown) (unknown) densities.? (units (un known) date) unknown) (unknown) (no (unknown) (unknown) depression, Denies (units (unknown) date) homicidal ideation unknown) and Denies suicidal ideation (unknown) (no (unknown) (unknown) diarrhea, Denies (units (unknown) date) nausea and Denies unknown) vomiting (unknown) (no (unknown) (unknown) discharge. TTP (units (unknown) date) unknown) (unknown) (no (unknown) (unknown) discharge. UA (units ( unknown) date) indicative of UTI. unknown) Procalcitonin 1.56. WBC elevated to 14. (unknown) (no (unknown) (unknown) dizziness, syncope. (unit s (unknown) date) unknown) (unknown) (no (unknown) (unknown) enoxaparin 40 (units ( unknown) date) mg/0.4 mL 40 mg (0.4 unknown) mL) SUBCUT DAILY 28 05/02/22 (unknown) (no (unknown) (unknown) expected (units (unkno wn) date) positions.? The hip unknown) joint appears congruent.? A fracture is also seen (unknown) (no (unknown) (unknown) falls, Denies (units ( unknown) date) lethargy and Denies unknown) weakness (unknown) (no (unknown) (unknown) folic acid 1 mg (units (unknown) date) tablet 1 mg PO DAILY unknown) #30 tabs 05/02/22 (unknown) (no (unknown) (unknown) household members: (units (unknown) date) none unknown) (unknown) (no (unknown) (unknown) in (units (unkno wn) date) unknown) (unknown) (no (unknown) (unknown) including erythema, (unit s (unknown) date) swelling, purulence. unknown) There is a small amount of serous (unknown) (no (unknown) (unknown) left ischial (units (u nknown) date) tuberosity similar unknown) to prior x-ray on 04/29/2022.? Surrounding (unknown) (no (unknown) (unknown) lightheadedness, (units (unknown) date) Denies palpitations, unknown) Denies dyspnea, Denies dyspnea on exertion (unknown) (no (unknown) (unknown) mcg tablet (units (unk nown) date) (Tab-A-Kevin) unknown) (unknown) (no (unknown) (unknown) medical clearance (units (unknown) date) for acceptance into unknown) a SNF. 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 (units (unkno wn) date) unknown) (unknown) (no (unknown) (unknown) on 04/30/2022, had (units (unknown) date) surgical fixation. unknown) Patient elected to go home after the (unknown) (no (unknown) (unknown) on obtaining (units (u nknown) date) placement. Surgical unknown) incisions without overt signs of infections (unknown) (no (unknown) (unknown) oral powder packet (units (unknown) date) ea unknown) (unknown) (no (unknown) (unknown) oxycodone 5 mg (units (unknown) date) tablet 5 mg PO Q4HR unknown) PRN Pain, Moderate 05/02/22 (unknown) (no (unknown) (unknown) oxycodone as often (units (unknown) date) as prescribed. unknown) Patient denies fever, chills, chest pain, (unknown) (no (unknown) (unknown) placed into a SNF. (units (unknown) date) He will evaluate the unknown) patient. Hospitalist (unknown) (no (unknown) (unknown) polyethylene glycol (unit s (unknown) date) 3350 17 gram 17 g PO unknown) DAILY PRN Constipation #30 05/02/22 (unknown) (no (unknown) (unknown) presents to the ED (units (unknown) date) to avail of a SNF unknown) facility. A hip fracture in the left hip (unknown) (no (unknown) (unknown) presents to the ED (units (unknown) date) to avail of a SNF unknown) facility. Will obtain labs, urine for (unknown) (no (unknown) (unknown) sclerosis is (units (u nknown) date) unknown) (unknown) (no (unknown) (unknown) sennosides 8.6 mg (units (unknown) date) tablet (senna) 8.6 unknown) mg PO BID PRN Constipation #30 05/02/22 (unknown) (no (unknown) (unknown) shortness of breath, (unit s (unknown) date) abdominal pain, unknown) nausea, vomiting, dysuria, lightheadedness, (unknown) (no (unknown) (unknown) subcutaneous (units (u nknown) date) syringe (Lovenox) unknown) days #12 mL (unknown) (no (unknown) (unknown) such as swelling, (units (unknown) date) erythema, purulence. unknown) There is a small amount of serous (unknown) (no (unknown) (unknown) surgery as opposed (units (unknown) date) to going into a SNF unknown) F, due to her expiring the same (unknown) (no (unknown) (unknown) tabs (units (unkno wn) date) unknown) (unknown) (no (unknown) (unknown) thiamine (units (unkno wn) date) mononitrate (vit B1) unknown) 100 100 mg PO DAILY #30 tabs 05/02/22 (unknown) (no (unknown) (unknown) tissue (units (unkno wn) date) unknown) (unknown) (no (unknown) (unknown) unremarkable.? (units (unknown) date) unknown) (unknown) (no (unknown) (unknown) wheezing (units (unkno wn) date) unknown) (unknown) (no (unknown) (unknown) who arrived from (units (unknown) date) [facility] yesterday and unknown) observe that his mother was unable to cope Result panel 46 (unknown) (no (unknown) (unknown) (no value) (units (unk nown) date) unknown) (unknown) (no (unknown) (unknown) <Electronically (units (unknown) date) signed by Roe Davies unknown) Georges> (unknown) (no (unknown) (unknown) (1-3) #30 tabs (units (unknown) date) unknown) (unknown) (no (unknown) (unknown) (4-6) #30 tabs (units (unknown) date) unknown) (unknown) (no (unknown) (unknown) [id number] (units (unkno wn) date) unknown) (unknown) (no (unknown) (unknown) 1. Left (units (unkno wn) date) intertrochanteric unknown) hip fracture with good alignment. (unknown) (no (unknown) (unknown) 05/04/22 05/04/22 (units (unknown) date) 05/04/22 Range/Units unknown) (unknown) (no (unknown) (unknown) 05/04/22 16:46 (units (unknown) date) unknown) (unknown) (no (unknown) (unknown) 05/04/22 16:56 (units (unknown) date) unknown) (unknown) (no (unknown) (unknown) 05/04/22 16:59 (units (unknown) date) unknown) (unknown) (no (unknown) (unknown) 05/04/22 17:25 (units (unknown) date) unknown) (unknown) (no (unknown) (unknown) 05/04/22 17:41 (units (unknown) date) unknown) (unknown) (no (unknown) (unknown) 05/04/22 18:20 (units (unknown) date) unknown) (unknown) (no (unknown) (unknown) 05/04/22 18:46 (units (unknown) date) unknown) (unknown) (no (unknown) (unknown) 05/04/22 19:32 (units (unknown) date) unknown) (unknown) (no (unknown) (unknown) 05/04/22 19:33 (units (unknown) date) unknown) (unknown) (no (unknown) (unknown) 05/04/222037 (units ( unknown) date) unknown) (unknown) (no (unknown) (unknown) 05/04/22 (units (unkno wn) date) unknown) (unknown) (no (unknown) (unknown) 05/05/22 05:00 (units (unknown) date) unknown) (unknown) (no (unknown) (unknown) 05/06/22 05:00 (units (unknown) date) unknown) (unknown) (no (unknown) (unknown) 05/07/22 05:00 (units (unknown) date) unknown) (unknown) (no (unknown) (unknown) 15:42 05/04/22 (units (unknown) date) unknown) (unknown) (no (unknown) (unknown) 16:46 16:46 16:46 (units (unknown) date) unknown) (unknown) (no (unknown) (unknown) 16:46 16:46 17:41 (units (unknown) date) unknown) (unknown) (no (unknown) (unknown) 19:31 (units (unkno wn) date) unknown) (unknown) (no (unknown) (unknown) 2. Fracture of the (units (unknown) date) left ischial unknown) tuberosity with sclerosis.? (unknown) (no (unknown) (unknown) 23:53.? [place] (units (unknown) date) unknown) (unknown) (no (unknown) (unknown) 61-year-old female (units (unknown) date) with a past medical unknown) history of alcohol and tobacco use (unknown) (no (unknown) (unknown) ? (units (unkno wn) date) unknown) (unknown) (no (unknown) (unknown) ALT (<35) IU/L (units (unknown) date) unknown) (unknown) (no (unknown) (unknown) ALT 19 (<35) IU/L (units (unknown) date) unknown) (unknown) (no (unknown) (unknown) AST (14-36) IU/L (units (unknown) date) unknown) (unknown) (no (unknown) (unknown) AST 40 H (14-36) (units (unknown) date) IU/L unknown) (unknown) (no (unknown) (unknown) Acetaminophen (units ( unknown) date) (Acetaminophen 325 unknown) Mg Tablet) 650 mg PO Q6HR PRN (unknown) (no (unknown) (unknown) Admit Date/Time: (units (unknown) date) 05/04/22 19:33 unknown) (unknown) (no (unknown) (unknown) Age/Sex: 61 / F (units (unknown) date) unknown) (unknown) (no (unknown) (unknown) Albumin (3.5-5.0) (units (unknown) date) g/dL unknown) (unknown) (no (unknown) (unknown) Albumin 3.3 L (units ( unknown) date) (3.5-5.0) g/dL unknown) (unknown) (no (unknown) (unknown) Albumin/Globulin (units (unknown) date) Ratio (1.0-2.8) unknown) (unknown) (no (unknown) (unknown) Albumin/Globulin (units (unknown) date) Ratio 0.9 L unknown) (1.0-2.8) (unknown) (no (unknown) (unknown) Alcohol type: wine (units (unknown) date) unknown) (unknown) (no (unknown) (unknown) Alkaline (units (unkno wn) date) Phosphatase (38-126) unknown) U/L (unknown) (no (unknown) (unknown) Alkaline (units (unkno wn) date) Phosphatase 115 unknown) (38-126) U/L (unknown) (no (unknown) (unknown) Allergic/Immunologi (unit s (unknown) date) c unknown) (unknown) (no (unknown) (unknown) Allergic/Immunologi (unit s (unknown) date) c: Denies urticaria, unknown) Denies throat swelling and Denies (unknown) (no (unknown) (unknown) Allergies (units (unkn own) date) unknown) (unknown) (no (unknown) (unknown) Allergy/AdvReac (units (unknown) date) Type Severity unknown) Reaction Status Date / Time (unknown) (no (unknown) (unknown) Amorphous Sediment (units (unknown) date) 1 unknown) (unknown) (no (unknown) (unknown) Amorphous Sediment (units (unknown) date) unknown) (unknown) (no (unknown) (unknown) Approved by: Steven (unit s (unknown) date) Polly Quiroz on unknown) 05/04/2022 at 18:22 ? (unknown) (no (unknown) (unknown) Approved by: Steven (unit s (unknown) date) Polly Quiroz on unknown) 05/04/2022 at 18:26 ? (unknown) (no (unknown) (unknown) Auscultation:?clear (unit s (unknown) date) to auscultation unknown) bilaterally (unknown) (no (unknown) (unknown) BUN (7-17) mg/dL (units (unknown) date) unknown) (unknown) (no (unknown) (unknown) BUN 4 L (7-17) (units (unknown) date) mg/dL unknown) (unknown) (no (unknown) (unknown) BUN/Creatinine (units (unknown) date) Ratio (6-22) unknown) (unknown) (no (unknown) (unknown) BUN/Creatinine (units (unknown) date) Ratio 16.0 (6-22) unknown) (unknown) (no (unknown) (unknown) Baso # (Auto) (units ( unknown) date) (0-100) /uL unknown) (unknown) (no (unknown) (unknown) Baso # (Auto) 100 (units (unknown) date) (0-100) /uL unknown) (unknown) (no (unknown) (unknown) Baso % (Auto) (0-2) (unit s (unknown) date) % unknown) (unknown) (no (unknown) (unknown) Baso % (Auto) 0.6 (units (unknown) date) (0-2) % unknown) (unknown) (no (unknown) (unknown) Bisacodyl (units (unkn own) date) (Bisacodyl 5 Mg unknown) Tablet) 10 mg PO DAILY PRN (unknown) (no (unknown) (unknown) Blood Culture Stat (units (unknown) date) unknown) (unknown) (no (unknown) (unknown) Blood Pressure (units (unknown) date) 120/69 05/04/22 unknown) 15:42 (unknown) (no (unknown) (unknown) Blood Pressure (units (unknown) date) 120/69 155/84 H unknown) (unknown) (no (unknown) (unknown) Bones and chest (units (unknown) date) wall:? No suspicious unknown) bony lesions.? Overlying soft tissues (unknown) (no (unknown) (unknown) Bones:? Patient is (units (unknown) date) status post left hip unknown) arthroplasty, with hardware components (unknown) (no (unknown) (unknown) Both surgical (units ( unknown) date) incisions appear to unknown) be healing without overt signs of infection (unknown) (no (unknown) (unknown) CK-MB (CK-2) Rel (units (unknown) date) Index TNP unknown) (unknown) (no (unknown) (unknown) CK-MB (CK-2) Rel (units (unknown) date) Index unknown) (unknown) (no (unknown) (unknown) CK-MB (CK-2) TNP (units (unknown) date) unknown) (unknown) (no (unknown) (unknown) CK-MB (CK-2) (units (u nknown) date) unknown) (unknown) (no (unknown) (unknown) COMPARISON:[facility] (unit s (unknown) date) Hospital, CR, XR unknown) CHEST 1V, 04/29/2022, 23:53. (unknown) (no (unknown) (unknown) COMPARISON:[facility] (unit s (unknown) date) Hospital, CR, XR HIP unknown) W PEL IF DONE LT 2V, 04/29/2022, (unknown) (no (unknown) (unknown) COVID19 -Nasal (units (unknown) date) RAPID/Pre-Proc Stat unknown) (unknown) (no (unknown) (unknown) Calcium (8.4-10.2) (units (unknown) date) mg/dL unknown) (unknown) (no (unknown) (unknown) Calcium 8.6 (units (un known) date) (8.4-10.2) mg/dL unknown) (unknown) (no (unknown) (unknown) Carbon Dioxide (units (unknown) date) (22-32) mmol/L unknown) (unknown) (no (unknown) (unknown) Carbon Dioxide 24 (units (unknown) date) (22-32) mmol/L unknown) (unknown) (no (unknown) (unknown) Cardio (units (unkno wn) date) unknown) (unknown) (no (unknown) (unknown) Cardiovascular (units (unknown) date) unknown) (unknown) (no (unknown) (unknown) Cardiovascular: (units (unknown) date) Denies chest pain, unknown) Denies irregular heart rhythm, Denies (unknown) (no (unknown) (unknown) Cefepime HCl 1 gm/ (units (unknown) date) Sodium (Chloride) unknown) 100 mls @ 200 mls/hr IV Q12H ALFREDA (unknown) (no (unknown) (unknown) Ceftriaxone Sodium (units (unknown) date) 1,000 mg/ (Sodium unknown) Chloride) 100 mls @ 200 mls/hr IV NOW ONE (unknown) (no (unknown) (unknown) Chest x-ray: (units (u nknown) date) unknown) (unknown) (no (unknown) (unknown) Chief Complaint: (units (unknown) date) Extremity Injury, unknown) Lower (unknown) (no (unknown) (unknown) Chloride (98-107) (units (unknown) date) mmol/L unknown) (unknown) (no (unknown) (unknown) Chloride 95 L (units ( unknown) date) (98-107) mmol/L unknown) (unknown) (no (unknown) (unknown) Comments: (units (unkn own) date) unknown) (unknown) (no (unknown) (unknown) Complete Blood (units (unknown) date) Count AUTO DIFF unknown) DAILY (unknown) (no (unknown) (unknown) Complete Blood (units (unknown) date) Count AUTO DIFF Stat unknown) (unknown) (no (unknown) (unknown) Comprehensive (units ( unknown) date) Metabolic Panel unknown) DAILY (unknown) (no (unknown) (unknown) Comprehensive (units ( unknown) date) Metabolic Panel Stat unknown) (unknown) (no (unknown) (unknown) Const (units (unkno wn) date) unknown) (unknown) (no (unknown) (unknown) Constitutional (units (unknown) date) unknown) (unknown) (no (unknown) (unknown) Constitutional: (units (unknown) date) Denies chills, unknown) Denies fatigue, Denies fever(s), Denies frequent (unknown) (no (unknown) (unknown) Consult to (units (unk nown) date) Dietitian, Adult unknown) Stat (unknown) (no (unknown) (unknown) 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 - (units (unknown) date) [employer] Goods Worker Stat unknown) (unknown) (no (unknown) (unknown) Consult to Pastoral (unit s (unknown) date) Services Stat unknown) (unknown) (no (unknown) (unknown) Consult to Physical (unit s (unknown) date) Therapy Evaluate + unknown) Treat (unknown) (no (unknown) (unknown) Course (units (unkno wn) date) unknown) (unknown) (no (unknown) (unknown) Creatinine (units (unk nown) date) (0.52-1.04) mg/dL unknown) (unknown) (no (unknown) (unknown) Creatinine 0.25 L (units (unknown) date) (0.52-1.04) mg/dL unknown) (unknown) (no (unknown) (unknown) : 1960 (units (unknown) date) Acct:[id number] unknown) (unknown) (no (unknown) (unknown) Date of Service: (units (unknown) date) 05/04/22 unknown) (unknown) (no (unknown) (unknown) Denies frequent (units (unknown) date) falls, Denies loss unknown) of vision, Denies numbness, Denies tingling (unknown) (no (unknown) (unknown) Denies loss of (units (unknown) date) vision unknown) (unknown) (no (unknown) (unknown) Denies numbness and (unit s (unknown) date) Denies tingling unknown) (unknown) (no (unknown) (unknown) Departure (units (unkn own) date) unknown) (unknown) (no (unknown) (unknown) Dictated by: Steven (unit s (unknown) date) Polly Quiroz on unknown) 05/04/2022 at 18:20 ? ? (unknown) (no (unknown) (unknown) Dictated by: Steven (unit s (unknown) date) Polly Quiroz on unknown) 05/04/2022 at 18:23 ? ? (unknown) (no (unknown) (unknown) Discharge Plan (units (unknown) date) unknown) (unknown) (no (unknown) (unknown) Discontinued (units (u nknown) date) Medications unknown) (unknown) (no (unknown) (unknown) Documented By: ZGG (units (unknown) date) unknown) (unknown) (no (unknown) (unknown) Docusate Sodium (units (unknown) date) (Docusate 100 Mg unknown) Capsule) 100 mg PO BID ALFREDA (unknown) (no (unknown) (unknown) ED Orders (units (unkn own) date) unknown) (unknown) (no (unknown) (unknown) EKG-12 Lead Stat (units (unknown) date) unknown) (unknown) (no (unknown) (unknown) ENT (units (unkno wn) date) unknown) (unknown) (no (unknown) (unknown) ER Physician: (units ( unknown) date) Georges,Hyma P.A-C unknown) (unknown) (no (unknown) (unknown) Ears, Nose, Mouth, (units (unknown) date) and Throat: Denies unknown) change in voice, Denies dizziness, Denies (unknown) (no (unknown) (unknown) Ears:?hearing (units ( unknown) date) grossly normal unknown) bilaterally (unknown) (no (unknown) (unknown) Effort + (units (unkno wn) date) Inspection:?normal unknown) respiratory effort (unknown) (no (unknown) (unknown) Emergency Report (units (unknown) date) unknown) (unknown) (no (unknown) (unknown) Endocrine (units (unkn own) date) unknown) (unknown) (no (unknown) (unknown) Endocrine: Denies (units (unknown) date) fatigue, Denies unknown) flushing and Denies palpitations (unknown) (no (unknown) (unknown) Enoxaparin Sodium (units (unknown) date) (Enoxaparin 40 unknown) Mg/0.4 Ml Syringe) 40 mg SUBCUT DAILY ALFREDA (unknown) (no (unknown) (unknown) Eos # (Auto) (units (u nknown) date) (0-450) /uL unknown) (unknown) (no (unknown) (unknown) Eos # (Auto) 100 (units (unknown) date) (0-450) /uL unknown) (unknown) (no (unknown) (unknown) Eos % (Auto) (2-4) (units (unknown) date) % unknown) (unknown) (no (unknown) (unknown) Eos % (Auto) 0.4 L (units (unknown) date) (2-4) % unknown) (unknown) (no (unknown) (unknown) Estimated GFR > 60 (units (unknown) date) (>60) mL/min unknown) (unknown) (no (unknown) (unknown) Estimated GFR (>60) (unit s (unknown) date) mL/min unknown) (unknown) (no (unknown) (unknown) Exam Narrative: (units (unknown) date) unknown) (unknown) (no (unknown) (unknown) Exam (units (unkno wn) date) unknown) (unknown) (no (unknown) (unknown) Eyes (units (unkno wn) date) unknown) (unknown) (no (unknown) (unknown) Eyes: Denies change (unit s (unknown) date) in vision, Denies unknown) eye discharge, Denies irritation and (unknown) (no (unknown) (unknown) FINDINGS:? (units (unk nown) date) unknown) (unknown) (no (unknown) (unknown) Face and (units (unkno wn) date) sinus:?normal facial unknown) exam and sinuses nontender (unknown) (no (unknown) (unknown) Folic Acid (Folic (units (unknown) date) Acid 1 Mg Tablet) 1 unknown) mg PO DAILY ALFREDA (unknown) (no (unknown) (unknown) Gastrointestinal (units (unknown) date) unknown) (unknown) (no (unknown) (unknown) Gastrointestinal: (units (unknown) date) Denies abdominal unknown) pain, Denies change in bowel habits, Denies (unknown) (no (unknown) (unknown) General (units (unkno wn) date) unknown) (unknown) (no (unknown) (unknown) General:?appearance (unit s (unknown) date) normal, both eyes unknown) and all related structures (unknown) (no (unknown) (unknown) General:?cooperativ (unit s (unknown) date) e, healthy appearing unknown) and comfortable (unknown) (no (unknown) (unknown) General:?patient (units (unknown) date) alert, patient awake unknown) and patient oriented x3 (unknown) (no (unknown) (unknown) Genitourinary (units ( unknown) date) unknown) (unknown) (no (unknown) (unknown) Genitourinary: (units (unknown) date) Denies hematuria, unknown) Denies flank pain, Denies urinary incontinence (unknown) (no (unknown) (unknown) Globulin (1.7-4.1) (units (unknown) date) g/dL unknown) (unknown) (no (unknown) (unknown) Globulin 3.6 (units (u nknown) date) (1.7-4.1) g/dL unknown) (unknown) (no (unknown) (unknown) Glucose (80-110) (units (unknown) date) mg/dL unknown) (unknown) (no (unknown) (unknown) Glucose 86 (80-110) (unit s (unknown) date) mg/dL unknown) (unknown) (no (unknown) (unknown) HENMT (units (unkno wn) date) unknown) (unknown) (no (unknown) (unknown) HPI - Extremity (units (unknown) date) Injury (Lower) unknown) (unknown) (no (unknown) (unknown) HPI Narrative: (units (unknown) date) unknown) (unknown) (no (unknown) (unknown) Hct (36-46) % (units ( unknown) date) unknown) (unknown) (no (unknown) (unknown) Hct 28.8 L (36-46) (units (unknown) date) % unknown) (unknown) (no (unknown) (unknown) Head:?normal to (units (unknown) date) inspection unknown) (unknown) (no (unknown) (unknown) Hematologic/Lymphat (unit s (unknown) date) ic unknown) (unknown) (no (unknown) (unknown) Hematologic/Lymphat (unit s (unknown) date) ic: Denies easy unknown) bruising (unknown) (no (unknown) (unknown) Hgb (12.0-16.0) (units (unknown) date) g/dL unknown) (unknown) (no (unknown) (unknown) Hgb 9.9 L (units (unkn own) date) (12.0-16.0) g/dL unknown) (unknown) (no (unknown) (unknown) Hip pain (units (unkno wn) date) unknown) (unknown) (no (unknown) (unknown) History of Present (units (unknown) date) Illness unknown) (unknown) (no (unknown) (unknown) Hospital, CR, XR (units (unknown) date) HIP W PEL IF DONE LT unknown) 2V, 04/30/2022, 15:29. (unknown) (no (unknown) (unknown) Hydrocodone (units (un known) date) Bitart/Acetaminophen unknown) (Hydrocodone/Acet 10/325 Tablet) 1 tab PO Q4HR (unknown) (no (unknown) (unknown) Hydromorphone HCl (units (unknown) date) (Hydromorphone 1 Mg unknown) Inj) 1 mg IV NOW ONE (unknown) (no (unknown) (unknown) IMPRESSION:? No (units (unknown) date) acute unknown) cardiopulmonary abnormality. (unknown) (no (unknown) (unknown) IMPRESSION:? (units (u nknown) date) unknown) (unknown) (no (unknown) (unknown) INDICATIONS:? Flu (units (unknown) date) like symptoms unknown) (unknown) (no (unknown) (unknown) INDICATIONS:? sp (units (unknown) date) hip replacement unknown) after fall, gen weakness, increased WBC (unknown) (no (unknown) (unknown) IV fluids. (units (unk nown) date) Hospitalist unknown) Ismael consulted for admission until patient can be (unknown) (no (unknown) (unknown) Imaging Data (units (u nknown) date) unknown) (unknown) (no (unknown) (unknown) Initial Vital Signs (unit s (unknown) date) unknown) (unknown) (no (unknown) (unknown) Initial Vital (units ( unknown) date) Signs: unknown) (unknown) (no (unknown) (unknown) Integumentary (units ( unknown) date) unknown) (unknown) (no (unknown) (unknown) Integumentary/Breas (unit s (unknown) date) ts unknown) (unknown) (no (unknown) (unknown) [facility] (units (unknown) date) [address] unknown) [place] [address] (unknown) (no (unknown) (unknown) Lab Data (units (unkno wn) date) unknown) (unknown) (no (unknown) (unknown) Lab Results (units (un known) date) unknown) (unknown) (no (unknown) (unknown) Labs: (units (unkno wn) date) unknown) (unknown) (no (unknown) (unknown) Lactate (0.7-2.1) (units (unknown) date) mmol/L unknown) (unknown) (no (unknown) (unknown) Lactate (Lactic (units (unknown) date) Acid) Stat unknown) (unknown) (no (unknown) (unknown) Lactate 1.8 (units (un known) date) (0.7-2.1) mmol/L unknown) (unknown) (no (unknown) (unknown) Last Admin: (units (un known) date) 05/04/22 18:27 Dose: unknown) 1,000 mls/hr (unknown) (no (unknown) (unknown) Last Admin: (units (un known) date) 05/04/22 19:03 Dose: unknown) 1 mg (unknown) (no (unknown) (unknown) Last Admin: (units (un known) date) 05/04/22 19:03 Dose: unknown) 4 mg (unknown) (no (unknown) (unknown) Last Admin: (units (un known) date) 05/04/22 19:15 Dose: unknown) 200 mls/hr (unknown) (no (unknown) (unknown) Lorazepam (units (unkn own) date) (Lorazepam 1 Mg unknown) Tablet) 0 mg PO CIWAPRN PRN; Protocol (unknown) (no (unknown) (unknown) Lungs and pleura:? (units (unknown) date) Lungs are clear.? No unknown) pleural effusions or pneumothorax.? (unknown) (no (unknown) (unknown) Lymph # (Auto) (units (unknown) date) (5596-3912) /uL unknown) (unknown) (no (unknown) (unknown) Lymph # (Auto) 2200 (unit s (unknown) date) (7845-6760) /uL unknown) (unknown) (no (unknown) (unknown) Lymph % (Auto) (units (unknown) date) (25-40) % unknown) (unknown) (no (unknown) (unknown) Lymph % (Auto) 15.3 (unit s (unknown) date) L (25-40) % unknown) (unknown) (no (unknown) (unknown) MCH (26-34) PG (units (unknown) date) unknown) (unknown) (no (unknown) (unknown) MCH 35.6 H (26-34) (units (unknown) date) PG unknown) (unknown) (no (unknown) (unknown) MCHC (30-36) % (units (unknown) date) unknown) (unknown) (no (unknown) (unknown) MCHC 34.4 (30-36) % (unit s (unknown) date) unknown) (unknown) (no (unknown) (unknown) MCV (80-100) fL (units (unknown) date) unknown) (unknown) (no (unknown) (unknown) MCV 103.5 H (units (un known) date) (80-100) fL unknown) (unknown) (no (unknown) (unknown) MDM - Extremity (units (unknown) date) Injury (Lower) unknown) (unknown) (no (unknown) (unknown) MDM Narrative (units ( unknown) date) unknown) (unknown) (no (unknown) (unknown) Magnesium DAILY (units (unknown) date) unknown) (unknown) (no (unknown) (unknown) Mediastinum:? (units ( unknown) date) Mediastinal contours unknown) appear normal.? Heart size is normal.? (unknown) (no (unknown) (unknown) Medical decision (units (unknown) date) making narrative: unknown) (unknown) (no (unknown) (unknown) Medication (units (unk nown) date) Instructions unknown) Recorded (unknown) (no (unknown) (unknown) Mode of arrival: (units (unknown) date) EMS unknown) (unknown) (no (unknown) (unknown) [place] # (Auto) (units ( unknown) date) (0-900) /uL unknown) (unknown) (no (unknown) (unknown) [place] # (Auto) 1200 (units (unknown) date) H (0-900) /uL unknown) (unknown) (no (unknown) (unknown) [place] % (Auto) (units ( unknown) date) (3-14) % unknown) (unknown) (no (unknown) (unknown) [place] % (Auto) 8.1 (units (unknown) date) (3-14) % unknown) (unknown) (no (unknown) (unknown) Mouth:?oral mucosae (unit s (unknown) date) normal unknown) (unknown) (no (unknown) (unknown) Multivitamins (units ( unknown) date) (Multivitamin 1 unknown) Tablet) 1 tab PO DAILY ALFREDA (unknown) (no (unknown) (unknown) Musculoskeletal (units (unknown) date) unknown) (unknown) (no (unknown) (unknown) Musculoskeletal: (units (unknown) date) Denies back pain, unknown) Denies muscle weakness, Denies neck pain, (unknown) (no (unknown) (unknown) Narrative (units (unkn own) date) unknown) (unknown) (no (unknown) (unknown) Neck (units (unkno wn) date) unknown) (unknown) (no (unknown) (unknown) Neck:?normal visual (unit s (unknown) date) inspection and no unknown) lymphadenopathy noted (unknown) (no (unknown) (unknown) Neuro (units (unkno wn) date) unknown) (unknown) (no (unknown) (unknown) Neurologic (units (unk nown) date) unknown) (unknown) (no (unknown) (unknown) Neurologic: Denies (units (unknown) date) behavioral changes, unknown) Denies confusion, Denies dizziness, (unknown) (no (unknown) (unknown) Neut # (Auto) (units ( unknown) date) (1913-3606) /uL unknown) (unknown) (no (unknown) (unknown) Neut # (Auto) 84559 (unit s (unknown) date) H (3670-3592) /uL unknown) (unknown) (no (unknown) (unknown) Neut % (Auto) (units ( unknown) date) (50-75) % unknown) (unknown) (no (unknown) (unknown) Neut % (Auto) 75.6 (units (unknown) date) H (50-75) % unknown) (unknown) (no (unknown) (unknown) Nicotine (Nicotine (units (unknown) date) 14 Patch) 14 mg TOP unknown) DAILY ALFREDA (unknown) (no (unknown) (unknown) Nose:?external nose (unit s (unknown) date) normal unknown) (unknown) (no (unknown) (unknown) Ondansetron HCl (units (unknown) date) (Ondansetron 4 Mg unknown) Odt) 4 mg PO Q6H PRN (unknown) (no (unknown) (unknown) Ondansetron HCl (units (unknown) date) (Ondansetron 4 Mg/2 unknown) Ml Inj) 4 mg IV NOW ONE (unknown) (no (unknown) (unknown) Ordered: (units (unkno wn) date) unknown) (unknown) (no (unknown) (unknown) Orders (units (unkno wn) date) unknown) (unknown) (no (unknown) (unknown) Oxycodone HCl (units ( unknown) date) (Oxycodone Ir 5 Mg unknown) Tablet) 5 mg PO Q4HR PRN (unknown) (no (unknown) (unknown) Oxygen Delivery (units (unknown) date) Method 05/04/22 unknown) 15:42 (unknown) (no (unknown) (unknown) Oxygen Delivery (units (unknown) date) Method Room Air Room unknown) Air (unknown) (no (unknown) (unknown) PRN Reason: Alcohol (unit s (unknown) date) Withdrawal unknown) (unknown) (no (unknown) (unknown) PRN Reason: (units (un known) date) Constipation unknown) (unknown) (no (unknown) (unknown) PRN Reason: (units (un known) date) Fever/Mild Pain unknown) (1-3) (unknown) (no (unknown) (unknown) PRN Reason: Nausea (units (unknown) date) And Vomiting unknown) (unknown) (no (unknown) (unknown) PRN Reason: Pain, (units (unknown) date) Moderate (4-6) unknown) (unknown) (no (unknown) (unknown) PRN Reason: Pain, (units (unknown) date) Severe (7-10) unknown) (unknown) (no (unknown) (unknown) PRN (units (unkno wn) date) unknown) (unknown) (no (unknown) (unknown) PROCEDURE:? XR (units (unknown) date) CHEST 1V unknown) (unknown) (no (unknown) (unknown) PROCEDURE:? XR (units (unknown) date) PELVIS 1-2V unknown) (unknown) (no (unknown) (unknown) Patient History (units (unknown) date) unknown) (unknown) (no (unknown) (unknown) Patient: (units (unkno wn) date) Nichol Meng unknown) MR#: [id number] (unknown) (no (unknown) (unknown) Pelvic Xray: (units (u nknown) date) unknown) (unknown) (no (unknown) (unknown) Penicillins (units (un known) date) [PENICILLINS] unknown) AdvReac Intermediate rash Verified 05/04/22 16:59 (unknown) (no (unknown) (unknown) Plt Count (150-400) (unit s (unknown) date) X103/uL unknown) (unknown) (no (unknown) (unknown) Plt Count 407 H (units (unknown) date) (150-400) X103/uL unknown) (unknown) (no (unknown) (unknown) Polyethylene Glycol (unit s (unknown) date) (Polyethylene Glycol unknown) 3350 17 Gm Powd.Pack) 17 gm PO DAILY (unknown) (no (unknown) (unknown) Potassium (3.4-5.1) (unit s (unknown) date) mmol/L unknown) (unknown) (no (unknown) (unknown) Potassium 4.0 (units ( unknown) date) (3.4-5.1) mmol/L unknown) (unknown) (no (unknown) (unknown) Previous Rx's (units ( unknown) date) unknown) (unknown) (no (unknown) (unknown) Procalcitonin (units ( unknown) date) (<0.5) ng/mL unknown) (unknown) (no (unknown) (unknown) Procalcitonin 1.56 (units (unknown) date) H (<0.5) ng/mL unknown) (unknown) (no (unknown) (unknown) Procalcitonin Stat (units (unknown) date) unknown) (unknown) (no (unknown) (unknown) Psychiatric (units (un known) date) unknown) (unknown) (no (unknown) (unknown) Psychiatric: Denies (units (unknown) date) anxiety, Denies unknown) behavioral changes, Denies confusion, Denies (unknown) (no (unknown) (unknown) Pulse Oximetry 99 (units (unknown) date) 05/04/22 15:42 unknown) (unknown) (no (unknown) (unknown) Pulse Oximetry 99 (units (unknown) date) 98 unknown) (unknown) (no (unknown) (unknown) Pulse Rate 95 H (units (unknown) date) 05/04/22 15:42 unknown) (unknown) (no (unknown) (unknown) Pulse Rate 95 H 109 (unit s (unknown) date) H unknown) (unknown) (no (unknown) (unknown) RBC (4.0-5.2) (units ( unknown) date) X106/uL unknown) (unknown) (no (unknown) (unknown) RBC 2.79 L (units (unk nown) date) (4.0-5.2) X106/uL unknown) (unknown) (no (unknown) (unknown) RDW (11.6-14.8) % (units (unknown) date) unknown) (unknown) (no (unknown) (unknown) RDW 13.3 (units (unkno wn) date) (11.6-14.8) % unknown) (unknown) (no (unknown) (unknown) ROS Unobtainable: (units (unknown) date) All systems reviewed unknown) + are unremarkable except as noted in HPI (unknown) (no (unknown) (unknown) Radiologist's (units ( unknown) date) Impression: unknown) (unknown) (no (unknown) (unknown) Rate:?regular rate (units (unknown) date) unknown) (unknown) (no (unknown) (unknown) Related Data (units (u nknown) date) unknown) (unknown) (no (unknown) (unknown) Resp (units (unkno wn) date) unknown) (unknown) (no (unknown) (unknown) Respiratory Rate 17 (unit s (unknown) date) 10 L unknown) (unknown) (no (unknown) (unknown) Respiratory Rate 17 (unit s (unknown) date) 05/04/22 15:42 unknown) (unknown) (no (unknown) (unknown) Respiratory (units (un known) date) unknown) (unknown) (no (unknown) (unknown) Respiratory: Denies (units (unknown) date) cough, Denies unknown) dyspnea, Denies dyspnea on exertion and Denies (unknown) (no (unknown) (unknown) Result diagrams: (units (unknown) date) unknown) (unknown) (no (unknown) (unknown) Review of Systems (units (unknown) date) unknown) (unknown) (no (unknown) (unknown) Rhythm:?regular (units (unknown) date) rhythm unknown) (unknown) (no (unknown) (unknown) SARS-CoV-2 (PCR) (units (unknown) date) (Negative) unknown) (unknown) (no (unknown) (unknown) SARS-CoV-2 (PCR) (units (unknown) date) Negative (Negative) unknown) (unknown) (no (unknown) (unknown) Sennosides (units (unk nown) date) (Sennosides 8.6 Mg unknown) Tablet) 8.6 mg PO BID PRN (unknown) (no (unknown) (unknown) Signed By: (units (unk nown) date) unknown) (unknown) (no (unknown) (unknown) Skin/Breast: Denies (unit s (unknown) date) pruritus, Denies unknown) erythema, Denies rash and Denies wounds (unknown) (no (unknown) (unknown) Smoking Status: (units (unknown) date) Current every day unknown) smoker (unknown) (no (unknown) (unknown) Social History (units (unknown) date) (Reviewed 05/04/22 @ unknown) 19:33 by Roe Su PA-C) (unknown) (no (unknown) (unknown) Sodium (137-145) (units (unknown) date) mmol/L unknown) (unknown) (no (unknown) (unknown) Sodium 129 L (units (u nknown) date) (137-145) mmol/L unknown) (unknown) (no (unknown) (unknown) Sodium Chloride (units (unknown) date) (Normal Saline 0.9%) unknown) 1,000 mls @ 1,000 mls/hr IV BOLUS ONE (unknown) (no (unknown) (unknown) Sodium Chloride (units (unknown) date) (Normal Saline 0.9%) unknown) 1,000 mls @ 100 mls/hr IV CONT ALFREDA (unknown) (no (unknown) (unknown) Soft tissues:? (units (unknown) date) Overlying unknown) postoperative changes are noted.? No suspicious soft (unknown) (no (unknown) (unknown) Source: EMS (units (un known) date) unknown) (unknown) (no (unknown) (unknown) Stated Complaint: (units (unknown) date) Hip pain unknown) (unknown) (no (unknown) (unknown) Status post (units (un known) date) appendectomy unknown) (unknown) (no (unknown) (unknown) Status post breast (units (unknown) date) lumpectomy unknown) (unknown) (no (unknown) (unknown) Status post (units (un known) date) hysterectomy unknown) (unknown) (no (unknown) (unknown) Stop: 05/04/22 (units (unknown) date) 18:51 unknown) (unknown) (no (unknown) (unknown) Stop: 05/04/22 (units (unknown) date) 19:03 unknown) (unknown) (no (unknown) (unknown) Stop: 05/04/22 (units (unknown) date) 19:20 unknown) (unknown) (no (unknown) (unknown) Substance Use Type: (unit s (unknown) date) does not use unknown) (unknown) (no (unknown) (unknown) Surgical History (units (unknown) date) (Reviewed 05/04/22 @ unknown) 19:33 by Roe Su PA-C) (unknown) (no (unknown) (unknown) Surgical changes (units (unknown) date) and devices:? None.? unknown) (unknown) (no (unknown) (unknown) TECHNIQUE:? 1 view (units (unknown) date) of the lower pelvis unknown) acquired.? (unknown) (no (unknown) (unknown) TECHNIQUE:? One (units (unknown) date) view of the chest unknown) was acquired.? (unknown) (no (unknown) (unknown) Temperature 98 F (units (unknown) date) 05/04/22 15:42 unknown) (unknown) (no (unknown) (unknown) Temperature 98 F (units (unknown) date) unknown) (unknown) (no (unknown) (unknown) Thiamine HCl (units (u nknown) date) (Thiamine 100 Mg unknown) Tablet) 100 mg PO DAILY ALFREDA (unknown) (no (unknown) (unknown) Throat:?posterior (units (unknown) date) oropharynx normal unknown) (unknown) (no (unknown) (unknown) Time Seen by (units (u nknown) date) Provider: 05/04/22 unknown) 17:23 (unknown) (no (unknown) (unknown) Total Bilirubin (units (unknown) date) (0.2-1.3) mg/dL unknown) (unknown) (no (unknown) (unknown) Total Bilirubin 0.8 (unit s (unknown) date) (0.2-1.3) mg/dL unknown) (unknown) (no (unknown) (unknown) Total Creatine (units (unknown) date) Kinase (30-135) U/L unknown) (unknown) (no (unknown) (unknown) Total Creatine (units (unknown) date) Kinase 64 (30-135) unknown) U/L (unknown) (no (unknown) (unknown) Total Protein (units ( unknown) date) (6.3-8.2) g/dL unknown) (unknown) (no (unknown) (unknown) Total Protein 6.9 (units (unknown) date) (6.3-8.2) g/dL unknown) (unknown) (no (unknown) (unknown) Troponin + CK (units ( unknown) date) Cardiac Panel Stat unknown) (unknown) (no (unknown) (unknown) Troponin I < 0.012 (units (unknown) date) (0.01-0.034) ng/mL unknown) (unknown) (no (unknown) (unknown) Troponin I (units (unk nown) date) (0.01-0.034) ng/mL unknown) (unknown) (no (unknown) (unknown) Ur Culture (units (unk nown) date) Indicated? Specimen unknown) cultured (unknown) (no (unknown) (unknown) Ur Culture (units (unk nown) date) Indicated? unknown) (unknown) (no (unknown) (unknown) Ur Leukocyte (units (u nknown) date) Esterase (NEGATIVE) unknown) (unknown) (no (unknown) (unknown) Ur Leukocyte (units (u nknown) date) Esterase 1+ H unknown) (NEGATIVE) (unknown) (no (unknown) (unknown) Ur Specific [place] (unit s (unknown) date) <=1.005 unknown) (1.000-1.035) (unknown) (no (unknown) (unknown) Ur Specific [place] (unit s (unknown) date) (1.000-1.035) unknown) (unknown) (no (unknown) (unknown) Ur Squamous Epith (units (unknown) date) Cells (0-5/HPF) unknown) (unknown) (no (unknown) (unknown) Ur Squamous Epith (units (unknown) date) Cells 0-1 /hpf unknown) (0-5/HPF) (unknown) (no (unknown) (unknown) Urinalysis and (units (unknown) date) Microscopic Stat unknown) (unknown) (no (unknown) (unknown) Urine Appearance (units (unknown) date) Clear unknown) (unknown) (no (unknown) (unknown) Urine Appearance (units (unknown) date) unknown) (unknown) (no (unknown) (unknown) Urine Bacteria (units (unknown) date) (None) unknown) (unknown) (no (unknown) (unknown) Urine Bacteria Few (units (unknown) date) (2-10) H (None) unknown) (unknown) (no (unknown) (unknown) Urine Bilirubin (units (unknown) date) (NEGATIVE) unknown) (unknown) (no (unknown) (unknown) Urine Bilirubin (units (unknown) date) Negative (NEGATIVE) unknown) (unknown) (no (unknown) (unknown) Urine Color Yellow (units (unknown) date) unknown) (unknown) (no (unknown) (unknown) Urine Color (units (un known) date) unknown) (unknown) (no (unknown) (unknown) Urine Culture Stat (units (unknown) date) unknown) (unknown) (no (unknown) (unknown) Urine Glucose (UA) (units (unknown) date) (Negative) g/dL unknown) (unknown) (no (unknown) (unknown) Urine Glucose (UA) (units (unknown) date) Negative (Negative) unknown) g/dL (unknown) (no (unknown) (unknown) Urine Ketones (units ( unknown) date) (NEGATIVE) unknown) (unknown) (no (unknown) (unknown) Urine Ketones (units ( unknown) date) Negative (NEGATIVE) unknown) (unknown) (no (unknown) (unknown) Urine Nitrate (units ( unknown) date) (Negative) unknown) (unknown) (no (unknown) (unknown) Urine Nitrate (units ( unknown) date) Negative (Negative) unknown) (unknown) (no (unknown) (unknown) Urine Occult Blood (units (unknown) date) (Negative) unknown) (unknown) (no (unknown) (unknown) Urine Occult Blood (units (unknown) date) 1+ H (Negative) unknown) (unknown) (no (unknown) (unknown) Urine Protein (units ( unknown) date) (Negative) unknown) (unknown) (no (unknown) (unknown) Urine Protein (units ( unknown) date) Negative (Negative) unknown) (unknown) (no (unknown) (unknown) Urine RBC (0-5/HPF) (unit s (unknown) date) unknown) (unknown) (no (unknown) (unknown) Urine RBC 0-1/hpf (units (unknown) date) (0-5/HPF) unknown) (unknown) (no (unknown) (unknown) Urine Urobilinogen (units (unknown) date) (0.2) E.U./dL unknown) (unknown) (no (unknown) (unknown) Urine Urobilinogen (units (unknown) date) 0.2 (0.2) E.U./dL unknown) (unknown) (no (unknown) (unknown) Urine WBC (0-5/HPF) (unit s (unknown) date) unknown) (unknown) (no (unknown) (unknown) Urine WBC 1-5/hpf (units (unknown) date) (0-5/HPF) unknown) (unknown) (no (unknown) (unknown) Urine pH (4.5-8.0) (units (unknown) date) unknown) (unknown) (no (unknown) (unknown) Urine pH 7.0 (units (u nknown) date) (4.5-8.0) unknown) (unknown) (no (unknown) (unknown) Vital Signs - 8 hr (units (unknown) date) unknown) (unknown) (no (unknown) (unknown) Vital Signs (units (un known) date) unknown) (unknown) (no (unknown) (unknown) Vital signs: (units (u nknown) date) unknown) (unknown) (no (unknown) (unknown) WBC (4.5-11.0) (units (unknown) date) X103/uL unknown) (unknown) (no (unknown) (unknown) WBC 14.1 H (units (unk nown) date) (4.5-11.0) X103/uL unknown) (unknown) (no (unknown) (unknown) Will treat pain (units (unknown) date) with Dilaudid, unknown) Zofran. Will start Rocephin 1 g IV. Will give (unknown) (no (unknown) (unknown) Wound Culture and (units (unknown) date) Gram Stain Stat unknown) (unknown) (no (unknown) (unknown) XR chest 1V Stat (units (unknown) date) unknown) (unknown) (no (unknown) (unknown) XR pelvis 1-2V Stat (unit s (unknown) date) unknown) (unknown) (no (unknown) (unknown) [Embedded Image Not (unit s (unknown) date) Available] unknown) (unknown) (no (unknown) (unknown) acetaminophen 325 (units (unknown) date) mg tablet 650 mg PO unknown) Q6HR PRN Fever/Mild Pain 05/02/22 (unknown) (no (unknown) (unknown) again, especially (units (unknown) date) given her alcohol unknown) use. Patient's pain appears to be poorly (unknown) (no (unknown) (unknown) alcohol intake (units (unknown) date) frequency: 3 or more unknown) drinks per day (unknown) (no (unknown) (unknown) alcohol intake: (units (unknown) date) current unknown) (unknown) (no (unknown) (unknown) and Denies (units (unk nown) date) orthopnea unknown) (unknown) (no (unknown) (unknown) and Denies urinary (units (unknown) date) urgency unknown) (unknown) (no (unknown) (unknown) and Denies weakness (unit s (unknown) date) unknown) (unknown) (no (unknown) (unknown) and below (units (unkn own) date) unknown) (unknown) (no (unknown) (unknown) appear (units (unkno wn) date) unknown) (unknown) (no (unknown) (unknown) at home with her (units (unknown) date) ADLs. He also states unknown) that he is nervous about her falling (unknown) (no (unknown) (unknown) at the (units (unkno wn) date) unknown) (unknown) (no (unknown) (unknown) controlled with (units (unknown) date) oxycodone. It also unknown) seems like patient is not taking the (unknown) (no (unknown) (unknown) day and she wished (units (unknown) date) to grieve at home. unknown) Patient is brought in by her son today, (unknown) (no (unknown) (unknown) densities.? (units (un known) date) unknown) (unknown) (no (unknown) (unknown) depression, Denies (units (unknown) date) homicidal ideation unknown) and Denies suicidal ideation (unknown) (no (unknown) (unknown) diarrhea, Denies (units (unknown) date) nausea and Denies unknown) vomiting (unknown) (no (unknown) (unknown) discharge. TTP (units (unknown) date) unknown) (unknown) (no (unknown) (unknown) discharge. UA (units ( unknown) date) indicative of UTI. unknown) Procalcitonin 1.56. WBC elevated to 14. (unknown) (no (unknown) (unknown) dizziness, syncope. (unit s (unknown) date) unknown) (unknown) (no (unknown) (unknown) enoxaparin 40 (units ( unknown) date) mg/0.4 mL 40 mg (0.4 unknown) mL) SUBCUT DAILY 28 05/02/22 (unknown) (no (unknown) (unknown) expected (units (unkno wn) date) positions.? The hip unknown) joint appears congruent.? A fracture is also seen (unknown) (no (unknown) (unknown) falls, Denies (units ( unknown) date) lethargy and Denies unknown) weakness (unknown) (no (unknown) (unknown) folic acid 1 mg (units (unknown) date) tablet 1 mg PO DAILY unknown) #30 tabs 05/02/22 (unknown) (no (unknown) (unknown) household members: (units (unknown) date) none unknown) (unknown) (no (unknown) (unknown) in (units (unkno wn) date) unknown) (unknown) (no (unknown) (unknown) including erythema, (unit s (unknown) date) swelling, purulence. unknown) There is a small amount of serous (unknown) (no (unknown) (unknown) inpatient. (units (unk nown) date) unknown) (unknown) (no (unknown) (unknown) left ischial (units (u nknown) date) tuberosity similar unknown) to prior x-ray on 04/29/2022.? Surrounding (unknown) (no (unknown) (unknown) lightheadedness, (units (unknown) date) Denies palpitations, unknown) Denies dyspnea, Denies dyspnea on exertion (unknown) (no (unknown) (unknown) mcg tablet (units (unk nown) date) (Tab-A-Kevin) unknown) (unknown) (no (unknown) (unknown) medical clearance (units (unknown) date) for acceptance into unknown) a SNF. 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 (units (unkno wn) date) unknown) (unknown) (no (unknown) (unknown) on 04/30/2022, had (units (unknown) date) surgical fixation. unknown) Patient elected to go home after the (unknown) (no (unknown) (unknown) on obtaining (units (u nknown) date) placement. Surgical unknown) incisions without overt signs of infections (unknown) (no (unknown) (unknown) oral powder packet (units (unknown) date) ea unknown) (unknown) (no (unknown) (unknown) oxycodone 5 mg (units (unknown) date) tablet 5 mg PO Q4HR unknown) PRN Pain, Moderate 05/02/22 (unknown) (no (unknown) (unknown) oxycodone as often (units (unknown) date) as prescribed. unknown) Patient denies fever, chills, chest pain, (unknown) (no (unknown) (unknown) placed into a SNF. (units (unknown) date) He will evaluate the unknown) patient. Patient accepted as (unknown) (no (unknown) (unknown) polyethylene glycol (unit s (unknown) date) 3350 17 gram 17 g PO unknown) DAILY PRN Constipation #30 05/02/22 (unknown) (no (unknown) (unknown) presents to the ED (units (unknown) date) to avail of a SNF unknown) facility. A hip fracture in the left hip (unknown) (no (unknown) (unknown) presents to the ED (units (unknown) date) to avail of a SNF unknown) facility. Will obtain labs, urine for (unknown) (no (unknown) (unknown) sclerosis is (units (u nknown) date) unknown) (unknown) (no (unknown) (unknown) sennosides 8.6 mg (units (unknown) date) tablet (senna) 8.6 unknown) mg PO BID PRN Constipation #30 05/02/22 (unknown) (no (unknown) (unknown) shortness of breath, (unit s (unknown) date) abdominal pain, unknown) nausea, vomiting, dysuria, lightheadedness, (unknown) (no (unknown) (unknown) subcutaneous (units (u nknown) date) syringe (Lovenox) unknown) days #12 mL (unknown) (no (unknown) (unknown) such as swelling, (units (unknown) date) erythema, purulence. unknown) There is a small amount of serous (unknown) (no (unknown) (unknown) surgery as opposed (units (unknown) date) to going into a SNF unknown) F, due to her expiring the same (unknown) (no (unknown) (unknown) tabs (units (unkno wn) date) unknown) (unknown) (no (unknown) (unknown) thiamine (units (unkno wn) date) mononitrate (vit B1) unknown) 100 100 mg PO DAILY #30 tabs 05/02/22 (unknown) (no (unknown) (unknown) tissue (units (unkno wn) date) unknown) (unknown) (no (unknown) (unknown) unremarkable.? (units (unknown) date) unknown) (unknown) (no (unknown) (unknown) wheezing (units (unkno wn) date) unknown) (unknown) (no (unknown) (unknown) who arrived from (units (unknown) date) [place] yesterday and unknown) observe that his mother was unable to cope Result panel 47 (unknown) (no (unknown) (unknown) (no value) (units (unk nown) date) unknown) (unknown) (no (unknown) (unknown) (1-3) #30 tabs (units (unknown) date) unknown) (unknown) (no (unknown) (unknown) (4-6) #30 tabs (units (unknown) date) unknown) (unknown) (no (unknown) (unknown) (past 8 hours): (units (unknown) date) unknown) (unknown) (no (unknown) (unknown) [id number] (units (unkno wn) date) unknown) (unknown) (no (unknown) (unknown) 05/04/22 (units (unkno wn) date) 05/04/22 05/04/22 unknown) (unknown) (no (unknown) (unknown) 05/04/22 16:46 (units (unknown) date) unknown) (unknown) (no (unknown) (unknown) 05/04/22 Rx (units (un known) date) unknown) (unknown) (no (unknown) (unknown) 05/04/22 (units (unkno wn) date) unknown) (unknown) (no (unknown) (unknown) 15:42 05/04/22 (units (unknown) date) unknown) (unknown) (no (unknown) (unknown) 16:46 16:46 (units (un known) date) 16:46 unknown) (unknown) (no (unknown) (unknown) 16:46 16:46 (units (un known) date) 17:41 unknown) (unknown) (no (unknown) (unknown) 19:31 (units (unkno wn) date) unknown) (unknown) (no (unknown) (unknown) ALT 19 (units (unkno wn) date) unknown) (unknown) (no (unknown) (unknown) ALT (units (unkno wn) date) unknown) (unknown) (no (unknown) (unknown) AST 40 H (units (unkno wn) date) unknown) (unknown) (no (unknown) (unknown) AST (units (unkno wn) date) unknown) (unknown) (no (unknown) (unknown) Age/Sex: 61 / F (units (unknown) date) unknown) (unknown) (no (unknown) (unknown) Albumin 3.3 L (units ( unknown) date) unknown) (unknown) (no (unknown) (unknown) Albumin (units (unkno wn) date) unknown) (unknown) (no (unknown) (unknown) Albumin/Globulin (units (unknown) date) Ratio 0.9 L unknown) (unknown) (no (unknown) (unknown) Albumin/Globulin (units (unknown) date) Ratio unknown) (unknown) (no (unknown) (unknown) Alkaline (units (unkno wn) date) Phosphatase 115 unknown) (unknown) (no (unknown) (unknown) Alkaline (units (unkno wn) date) Phosphatase unknown) (unknown) (no (unknown) (unknown) Allergies (units (unkn own) date) unknown) (unknown) (no (unknown) (unknown) Allergy/AdvReac (units (unknown) date) Type Severity unknown) Reaction Status Date / Time (unknown) (no (unknown) (unknown) Amorphous (units (unkn own) date) Sediment 1 unknown) (unknown) (no (unknown) (unknown) Amorphous (units (unkn own) date) Sediment unknown) (unknown) (no (unknown) (unknown) Assessment + (units (u nknown) date) Plan unknown) (unknown) (no (unknown) (unknown) BUN 4 L (units (unkno wn) date) unknown) (unknown) (no (unknown) (unknown) BUN (units (unkno wn) date) unknown) (unknown) (no (unknown) (unknown) BUN/Creatinine (units (unknown) date) Ratio 16.0 unknown) (unknown) (no (unknown) (unknown) BUN/Creatinine (units (unknown) date) Ratio unknown) (unknown) (no (unknown) (unknown) Baso # (Auto) (units ( unknown) date) 100 unknown) (unknown) (no (unknown) (unknown) Baso # (Auto) (units ( unknown) date) unknown) (unknown) (no (unknown) (unknown) Baso % (Auto) (units ( unknown) date) 0.6 unknown) (unknown) (no (unknown) (unknown) Baso % (Auto) (units ( unknown) date) unknown) (unknown) (no (unknown) (unknown) Been Physically (units (unknown) date) Hurt or No unknown) (unknown) (no (unknown) (unknown) Blood Pressure (units (unknown) date) 120/69 155/84 H unknown) (unknown) (no (unknown) (unknown) CK-MB (CK-2) Rel (units (unknown) date) Index TNP unknown) (unknown) (no (unknown) (unknown) CK-MB (CK-2) Rel (units (unknown) date) Index unknown) (unknown) (no (unknown) (unknown) CK-MB (CK-2) TNP (units (unknown) date) unknown) (unknown) (no (unknown) (unknown) CK-MB (CK-2) (units (u nknown) date) unknown) (unknown) (no (unknown) (unknown) Calcium 8.6 (units (un known) date) unknown) (unknown) (no (unknown) (unknown) Calcium (units (unkno wn) date) unknown) (unknown) (no (unknown) (unknown) Carbon Dioxide (units (unknown) date) 24 unknown) (unknown) (no (unknown) (unknown) Carbon Dioxide (units (unknown) date) unknown) (unknown) (no (unknown) (unknown) Chief complaint: (units (unknown) date) Hip pain unknown) (unknown) (no (unknown) (unknown) Chloride 95 L (units ( unknown) date) unknown) (unknown) (no (unknown) (unknown) Chloride (units (unkno wn) date) unknown) (unknown) (no (unknown) (unknown) Creatinine 0.25 (units (unknown) date) L unknown) (unknown) (no (unknown) (unknown) Creatinine (units (unk nown) date) unknown) (unknown) (no (unknown) (unknown) Critical Care (units ( unknown) date) time: unknown) (unknown) (no (unknown) (unknown) : 1960 (units (unknown) date) Acct:[id number] unknown) (unknown) (no (unknown) (unknown) Date Patient (units (u nknown) date) Seen: 05/04/22 unknown) (unknown) (no (unknown) (unknown) Date of Service: (units (unknown) date) 05/04/22 unknown) (unknown) (no (unknown) (unknown) Environment (units (un known) date) unknown) (unknown) (no (unknown) (unknown) Eos # (Auto) 100 (units (unknown) date) unknown) (unknown) (no (unknown) (unknown) Eos # (Auto) (units (u nknown) date) unknown) (unknown) (no (unknown) (unknown) Eos % (Auto) 0.4 (units (unknown) date) L unknown) (unknown) (no (unknown) (unknown) Eos % (Auto) (units (u nknown) date) unknown) (unknown) (no (unknown) (unknown) Estimated GFR > (units (unknown) date) 60 unknown) (unknown) (no (unknown) (unknown) Estimated GFR (units ( unknown) date) unknown) (unknown) (no (unknown) (unknown) Exam (units (unkno wn) date) unknown) (unknown) (no (unknown) (unknown) Family + Social (units (unknown) date) History unknown) (unknown) (no (unknown) (unknown) Feels Safe in (units ( unknown) date) Current Yes unknown) (unknown) (no (unknown) (unknown) Globulin 3.6 (units (u nknown) date) unknown) (unknown) (no (unknown) (unknown) Globulin (units (unkno wn) date) unknown) (unknown) (no (unknown) (unknown) Glucose 86 (units (unk nown) date) unknown) (unknown) (no (unknown) (unknown) Glucose (units (unkno wn) date) unknown) (unknown) (no (unknown) (unknown) Hct 28.8 L (units (unk nown) date) unknown) (unknown) (no (unknown) (unknown) Hct (units (unkno wn) date) unknown) (unknown) (no (unknown) (unknown) He stated she (units ( unknown) date) was urinating all unknown) the time and she stated she was having a hard (unknown) (no (unknown) (unknown) Hgb 9.9 L (units (unkn own) date) unknown) (unknown) (no (unknown) (unknown) Hgb (units (unkno wn) date) unknown) (unknown) (no (unknown) (unknown) History + (units (unkn own) date) Physical Report unknown) (unknown) (no (unknown) (unknown) History of (units (unk nown) date) Present Illness unknown) (unknown) (no (unknown) (unknown) Home Medications (units (unknown) date) and Allergies unknown) (unknown) (no (unknown) (unknown) Home Medications (units (unknown) date) unknown) (unknown) (no (unknown) (unknown) I spent a total (units (unknown) date) of [] minutes of unknown) critical care time on this patient's care (unknown) (no (unknown) (unknown) [facility] (units (unknown) date) [address] unknown) [place] [address] (unknown) (no (unknown) (unknown) Laboratory (units (unk nown) date) Results - last 24 unknown) hr (unknown) (no (unknown) (unknown) Labs (units (unkno wn) date) unknown) (unknown) (no (unknown) (unknown) Labs: (units (unkno wn) date) unknown) (unknown) (no (unknown) (unknown) Lactate 1.8 (units (un known) date) unknown) (unknown) (no (unknown) (unknown) Lactate (units (unkno wn) date) unknown) (unknown) (no (unknown) (unknown) Nichol Meng (units (unknown) date) is a 61 y.o. unknown) female who was admitted on 04/30/2022 after a fall (unknown) (no (unknown) (unknown) Lymph # (Auto) (units (unknown) date) 2200 unknown) (unknown) (no (unknown) (unknown) Lymph # (Auto) (units (unknown) date) unknown) (unknown) (no (unknown) (unknown) Lymph % (Auto) (units (unknown) date) 15.3 L unknown) (unknown) (no (unknown) (unknown) Lymph % (Auto) (units (unknown) date) unknown) (unknown) (no (unknown) (unknown) MCH 35.6 H (units (unk nown) date) unknown) (unknown) (no (unknown) (unknown) MCH (units (unkno wn) date) unknown) (unknown) (no (unknown) (unknown) MCHC 34.4 (units (unkn own) date) unknown) (unknown) (no (unknown) (unknown) MCHC (units (unkno wn) date) unknown) (unknown) (no (unknown) (unknown) MCV 103.5 H (units (un known) date) unknown) (unknown) (no (unknown) (unknown) MCV (units (unkno wn) date) unknown) (unknown) (no (unknown) (unknown) Medication (units (unk nown) date) Instructions unknown) Recorded Confirmed Type (unknown) (no (unknown) (unknown) Meds (units (unkno wn) date) unknown) (unknown) (no (unknown) (unknown) [place] # (Auto) (units ( unknown) date) 1200 H unknown) (unknown) (no (unknown) (unknown) [place] # (Auto) (units ( unknown) date) unknown) (unknown) (no (unknown) (unknown) [place] % (Auto) (units ( unknown) date) 8.1 unknown) (unknown) (no (unknown) (unknown) [place] % (Auto) (units ( unknown) date) unknown) (unknown) (no (unknown) (unknown) Narrative: (units (unk nown) date) unknown) (unknown) (no (unknown) (unknown) Neut # (Auto) (units ( unknown) date) 57504 H unknown) (unknown) (no (unknown) (unknown) Neut # (Auto) (units ( unknown) date) unknown) (unknown) (no (unknown) (unknown) Neut % (Auto) (units ( unknown) date) 75.6 H unknown) (unknown) (no (unknown) (unknown) Neut % (Auto) (units ( unknown) date) unknown) (unknown) (no (unknown) (unknown) Objective (units (unkn own) date) unknown) (unknown) (no (unknown) (unknown) Oxygen Delivery (units (unknown) date) Method Room Air unknown) Room Air (unknown) (no (unknown) (unknown) Oxygen Delivery (units (unknown) date) Method Room Air unknown) (unknown) (no (unknown) (unknown) Patient History (units (unknown) date) unknown) (unknown) (no (unknown) (unknown) Patient: (units (unkno wn) date) Nichol Meng R unknown) MR#: [id number] (unknown) (no (unknown) (unknown) Penicillins (units (un known) date) [PENICILLINS] unknown) AdvReac Intermediate rash Verified 05/04/22 16:59 (unknown) (no (unknown) (unknown) Plt Count 407 H (units (unknown) date) unknown) (unknown) (no (unknown) (unknown) Plt Count (units (unkn own) date) unknown) (unknown) (no (unknown) (unknown) Potassium 4.0 (units ( unknown) date) unknown) (unknown) (no (unknown) (unknown) Potassium (units (unkn own) date) unknown) (unknown) (no (unknown) (unknown) Prior Living (units (u nknown) date) Arrangements unknown) House (unknown) (no (unknown) (unknown) Procalcitonin (units ( unknown) date) 1.56 H unknown) (unknown) (no (unknown) (unknown) Procalcitonin (units ( unknown) date) unknown) (unknown) (no (unknown) (unknown) Provider: (units (unkn own) date) Elvia Gtz unknown) (unknown) (no (unknown) (unknown) Pulse Oximetry (units (unknown) date) 99 98 unknown) (unknown) (no (unknown) (unknown) Pulse Rate 95 H (units (unknown) date) 109 H unknown) (unknown) (no (unknown) (unknown) RBC 2.79 L (units (unk nown) date) unknown) (unknown) (no (unknown) (unknown) RBC (units (unkno wn) date) unknown) (unknown) (no (unknown) (unknown) RDW 13.3 (units (unkno wn) date) unknown) (unknown) (no (unknown) (unknown) RDW (units (unkno wn) date) unknown) (unknown) (no (unknown) (unknown) Respiratory Rate (units (unknown) date) 17 10 L unknown) (unknown) (no (unknown) (unknown) Result Diagrams: (units (unknown) date) unknown) (unknown) (no (unknown) (unknown) Rx (units (unkno wn) date) unknown) (unknown) (no (unknown) (unknown) SARS-CoV-2 (PCR) (units (unknown) date) Negative unknown) (unknown) (no (unknown) (unknown) SARS-CoV-2 (PCR) (units (unknown) date) unknown) (unknown) (no (unknown) (unknown) Safety + (units (unkno wn) date) Behavioral: unknown) (unknown) (no (unknown) (unknown) She states her (units ( unknown) date) pain was well unknown) controlled, son noted she began drinking again. Her (unknown) (no (unknown) (unknown) Signed By: (units (unk nown) date) unknown) (unknown) (no (unknown) (unknown) Smoking Status (units (unknown) date) Current every day unknown) smoker (unknown) (no (unknown) (unknown) Smoking packs (units ( unknown) date) per day 1.5 unknown) (unknown) (no (unknown) (unknown) Social History: (units (unknown) date) unknown) (unknown) (no (unknown) (unknown) Sodium 129 L (units (u nknown) date) unknown) (unknown) (no (unknown) (unknown) Sodium (units (unkno wn) date) unknown) (unknown) (no (unknown) (unknown) Status post (units (un known) date) appendectomy unknown) (unknown) (no (unknown) (unknown) Status post (units (un known) date) breast lumpectomy unknown) (unknown) (no (unknown) (unknown) Status post (units (un known) date) hysterectomy unknown) (unknown) (no (unknown) (unknown) Substance Use (units ( unknown) date) Type does not use unknown) (unknown) (no (unknown) (unknown) Surgical History (units (unknown) date) (Reviewed unknown) 05/04/22 @ 19:33 by Roe Su PA-C) (unknown) (no (unknown) (unknown) Temperature 98 F (units (unknown) date) unknown) (unknown) (no (unknown) (unknown) Threatened By a (units (unknown) date) Person unknown) (unknown) (no (unknown) (unknown) Time Patient (units (u nknown) date) Seen: 21:36 unknown) (unknown) (no (unknown) (unknown) Time Spent With (units (unknown) date) Patient unknown) (unknown) (no (unknown) (unknown) Tobacco + (units (unkn own) date) Substance use: unknown) (unknown) (no (unknown) (unknown) Tobacco type (units (u nknown) date) cigarettes unknown) (unknown) (no (unknown) (unknown) Today, her son (units (unknown) date) living in [place], unknown) arrived and saw that she was failing at home. (unknown) (no (unknown) (unknown) Total Bilirubin (units (unknown) date) 0.8 unknown) (unknown) (no (unknown) (unknown) Total Bilirubin (units (unknown) date) unknown) (unknown) (no (unknown) (unknown) Total Creatine (units (unknown) date) Kinase 64 unknown) (unknown) (no (unknown) (unknown) Total Creatine (units (unknown) date) Kinase unknown) (unknown) (no (unknown) (unknown) Total Protein (units ( unknown) date) 6.9 unknown) (unknown) (no (unknown) (unknown) Total Protein (units ( unknown) date) unknown) (unknown) (no (unknown) (unknown) Troponin I < (units (u nknown) date) 0.012 unknown) (unknown) (no (unknown) (unknown) Troponin I (units (unk nown) date) unknown) (unknown) (no (unknown) (unknown) Ur Culture (units (unk nown) date) Indicated? unknown) Specimen cultured (unknown) (no (unknown) (unknown) Ur Culture (units (unk nown) date) Indicated? unknown) (unknown) (no (unknown) (unknown) Ur Leukocyte (units (u nknown) date) Esterase 1+ H unknown) (unknown) (no (unknown) (unknown) Ur Leukocyte (units (u nknown) date) Esterase unknown) (unknown) (no (unknown) (unknown) Ur Specific (units (un known) date) [place] <=1.005 unknown) (unknown) (no (unknown) (unknown) Ur Specific (units (un known) date) [place] unknown) (unknown) (no (unknown) (unknown) Ur Squamous (units (un known) date) Epith Cells 0-1 unknown) /hpf (unknown) (no (unknown) (unknown) Ur Squamous (units (un known) date) Epith Cells unknown) (unknown) (no (unknown) (unknown) Urine Appearance (units (unknown) date) Clear unknown) (unknown) (no (unknown) (unknown) Urine Appearance (units (unknown) date) unknown) (unknown) (no (unknown) (unknown) Urine Bacteria (units (unknown) date) Few (2-10) H unknown) (unknown) (no (unknown) (unknown) Urine Bacteria (units (unknown) date) unknown) (unknown) (no (unknown) (unknown) Urine Bilirubin (units (unknown) date) Negative unknown) (unknown) (no (unknown) (unknown) Urine Bilirubin (units (unknown) date) unknown) (unknown) (no (unknown) (unknown) Urine Color (units (un known) date) Yellow unknown) (unknown) (no (unknown) (unknown) Urine Color (units (un known) date) unknown) (unknown) (no (unknown) (unknown) Urine Glucose (units ( unknown) date) (UA) Negative unknown) (unknown) (no (unknown) (unknown) Urine Glucose (units ( unknown) date) (UA) unknown) (unknown) (no (unknown) (unknown) Urine Ketones (units ( unknown) date) Negative unknown) (unknown) (no (unknown) (unknown) Urine Ketones (units ( unknown) date) unknown) (unknown) (no (unknown) (unknown) Urine Nitrate (units ( unknown) date) Negative unknown) (unknown) (no (unknown) (unknown) Urine Nitrate (units ( unknown) date) unknown) (unknown) (no (unknown) (unknown) Urine Occult (units (u nknown) date) Blood 1+ H unknown) (unknown) (no (unknown) (unknown) Urine Occult (units (u nknown) date) Blood unknown) (unknown) (no (unknown) (unknown) Urine Protein (units ( unknown) date) Negative unknown) (unknown) (no (unknown) (unknown) Urine Protein (units ( unknown) date) unknown) (unknown) (no (unknown) (unknown) Urine RBC (units (unkn own) date) 0-1/hpf unknown) (unknown) (no (unknown) (unknown) Urine RBC (units (unkn own) date) unknown) (unknown) (no (unknown) (unknown) Urine (units (unkno wn) date) Urobilinogen 0.2 unknown) (unknown) (no (unknown) (unknown) Urine (units (unkno wn) date) Urobilinogen unknown) (unknown) (no (unknown) (unknown) Urine WBC (units (unkn own) date) 1-5/hpf unknown) (unknown) (no (unknown) (unknown) Urine WBC (units (unkn own) date) unknown) (unknown) (no (unknown) (unknown) Urine pH 7.0 (units (u nknown) date) unknown) (unknown) (no (unknown) (unknown) Urine pH (units (unkno wn) date) unknown) (unknown) (no (unknown) (unknown) Vital Signs (units (un known) date) unknown) (unknown) (no (unknown) (unknown) WBC 14.1 H (units (unk nown) date) unknown) (unknown) (no (unknown) (unknown) WBC (units (unkno wn) date) unknown) (unknown) (no (unknown) (unknown) [Embedded Image (units (unknown) date) Not Available] unknown) (unknown) (no (unknown) (unknown) acetaminophen 325 (units (unknown) date) mg tablet 650 mg unknown) PO Q6HR PRN Fever/Mild Pain 05/02/22 05/04/22 (unknown) (no (unknown) (unknown) alcohol intake (units (unknown) date) current unknown) (unknown) (no (unknown) (unknown) alcohol intake (units (unknown) date) frequency 3 or unknown) more drinks per day (unknown) (no (unknown) (unknown) alcohol (units (unkno wn) date) intoxication. She unknown) was advised to avoid alcohol use. She was quite (unknown) (no (unknown) (unknown) deemed to have (units (unknown) date) significant unknown) malnutrition and saw dietary who recommended trying (unknown) (no (unknown) (unknown) diarrhea. (units (unkn own) date) unknown) (unknown) (no (unknown) (unknown) discharged home (units (unknown) date) with home PT. unknown) Unfortunately during her hospital stay her (unknown) (no (unknown) (unknown) enoxaparin 40 (units ( unknown) date) mg/0.4 mL 40 mg unknown) (0.4 mL) SUBCUT DAILY 28 05/02/22 05/04/22 Rx (unknown) (no (unknown) (unknown) fluid (units (unkno wn) date) restriction and unknown) improved diet and discharged on May 04. She was (unknown) (no (unknown) (unknown) folic acid 1 mg (units (unknown) date) tablet 1 mg PO unknown) DAILY #30 tabs 05/02/22 05/04/22 Rx (unknown) (no (unknown) (unknown) for which she (units ( unknown) date) had a pelvic unknown) fracture and left hip fracture. She did have the hip (unknown) (no (unknown) (unknown) fracture (units (unkno wn) date) repaired on the unknown) day of admission. She declined SNF and ultimately was (unknown) (no (unknown) (unknown) household (units (unkn own) date) members none unknown) (unknown) (no (unknown) (unknown) passed (units (unknown) date) away. Her likely unknown) cause of injury is mechanical fall due to (unknown) (no (unknown) (unknown) hyponatremic on (units (unknown) date) admission at that unknown) time with a sodium of 122, and improved with (unknown) (no (unknown) (unknown) malnutrition is (units (unknown) date) thought to unknown) potentially negatively affect her wound healing. (unknown) (no (unknown) (unknown) mg tablet (units (unkn own) date) unknown) (unknown) (no (unknown) (unknown) morphine AdvReac (units (unknown) date) Intermediate unknown) Hallucinati Verified 05/04/22 16:59 (unknown) (no (unknown) (unknown) ng (units (unkno wn) date) unknown) (unknown) (no (unknown) (unknown) oxycodone 5 mg (units (unknown) date) tablet 5 mg PO unknown) Q4HR PRN Pain, Moderate 05/02/22 05/04/22 Rx (unknown) (no (unknown) (unknown) sennosides 8.6 (units (unknown) date) mg tablet (senna) unknown) 8.6 mg PO BID PRN Constipation #30 05/02/22 (unknown) (no (unknown) (unknown) shakes and avoid (units (unknown) date) alcohol and unknown) follow up with her PCP as an outpatient. Her (unknown) (no (unknown) (unknown) son also (units (unkno wn) date) mentioned she had unknown) been previously treated for C. 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 (unknown) (no (unknown) (unknown) today; this time (units (unknown) date) is exclusive of unknown) procedural time. (unknown) (no (unknown) (unknown) years ago, did (units (unknown) date) not complete the unknown) medical treatment (stated she did not like the Result panel 48 (unknown) (no (unknown) (unknown) (no value) (units (unk nown) date) unknown) (unknown) (no (unknown) (unknown) (1-3) #30 tabs (units (unknown) date) unknown) (unknown) (no (unknown) (unknown) (4-6) #30 tabs (units (unknown) date) unknown) (unknown) (no (unknown) (unknown) (past 8 hours): (units (unknown) date) unknown) (unknown) (no (unknown) (unknown) [id number] (units (unkno wn) date) unknown) (unknown) (no (unknown) (unknown) 05/04/22 05/04/22 (units (unknown) date) 05/04/22 unknown) (unknown) (no (unknown) (unknown) 05/04/22 16:46 (units (unknown) date) unknown) (unknown) (no (unknown) (unknown) 05/04/22 Rx (units (un known) date) unknown) (unknown) (no (unknown) (unknown) 05/04/22 (units (unkno wn) date) unknown) (unknown) (no (unknown) (unknown) 15:42 05/04/22 (units (unknown) date) unknown) (unknown) (no (unknown) (unknown) 16:46 16:46 16:46 (units (unknown) date) unknown) (unknown) (no (unknown) (unknown) 16:46 16:46 17:41 (units (unknown) date) unknown) (unknown) (no (unknown) (unknown) 19:31 (units (unkno wn) date) unknown) (unknown) (no (unknown) (unknown) ALT 19 (units (unkno wn) date) unknown) (unknown) (no (unknown) (unknown) ALT (units (unkno wn) date) unknown) (unknown) (no (unknown) (unknown) AST 40 H (units (unkno wn) date) unknown) (unknown) (no (unknown) (unknown) AST (units (unkno wn) date) unknown) (unknown) (no (unknown) (unknown) Age/Sex: 61 / F (units (unknown) date) unknown) (unknown) (no (unknown) (unknown) Albumin 3.3 L (units ( unknown) date) unknown) (unknown) (no (unknown) (unknown) Albumin (units (unkno wn) date) unknown) (unknown) (no (unknown) (unknown) Albumin/Globulin (units (unknown) date) Ratio 0.9 L unknown) (unknown) (no (unknown) (unknown) Albumin/Globulin (units (unknown) date) Ratio unknown) (unknown) (no (unknown) (unknown) Alkaline (units (unkno wn) date) Phosphatase 115 unknown) (unknown) (no (unknown) (unknown) Alkaline (units (unkno wn) date) Phosphatase unknown) (unknown) (no (unknown) (unknown) Allergies (units (unkn own) date) unknown) (unknown) (no (unknown) (unknown) Allergy/AdvReac (units (unknown) date) Type Severity unknown) Reaction Status Date / Time (unknown) (no (unknown) (unknown) Amorphous Sediment (units (unknown) date) 1 unknown) (unknown) (no (unknown) (unknown) Amorphous Sediment (units (unknown) date) unknown) (unknown) (no (unknown) (unknown) Assessment + Plan (units (unknown) date) unknown) (unknown) (no (unknown) (unknown) BUN 4 L (units (unkno wn) date) unknown) (unknown) (no (unknown) (unknown) BUN (units (unkno wn) date) unknown) (unknown) (no (unknown) (unknown) BUN/Creatinine (units (unknown) date) Ratio 16.0 unknown) (unknown) (no (unknown) (unknown) BUN/Creatinine (units (unknown) date) Ratio unknown) (unknown) (no (unknown) (unknown) Baso # (Auto) 100 (units (unknown) date) unknown) (unknown) (no (unknown) (unknown) Baso # (Auto) (units ( unknown) date) unknown) (unknown) (no (unknown) (unknown) Baso % (Auto) 0.6 (units (unknown) date) unknown) (unknown) (no (unknown) (unknown) Baso % (Auto) (units ( unknown) date) unknown) (unknown) (no (unknown) (unknown) Been Physically (units (unknown) date) Hurt or No unknown) (unknown) (no (unknown) (unknown) Blood Pressure (units (unknown) date) 120/69 155/84 H unknown) (unknown) (no (unknown) (unknown) CK-MB (CK-2) Rel (units (unknown) date) Index TNP unknown) (unknown) (no (unknown) (unknown) CK-MB (CK-2) Rel (units (unknown) date) Index unknown) (unknown) (no (unknown) (unknown) CK-MB (CK-2) TNP (units (unknown) date) unknown) (unknown) (no (unknown) (unknown) CK-MB (CK-2) (units (u nknown) date) unknown) (unknown) (no (unknown) (unknown) Calcium 8.6 (units (un known) date) unknown) (unknown) (no (unknown) (unknown) Calcium (units (unkno wn) date) unknown) (unknown) (no (unknown) (unknown) Carbon Dioxide 24 (units (unknown) date) unknown) (unknown) (no (unknown) (unknown) Carbon Dioxide (units (unknown) date) unknown) (unknown) (no (unknown) (unknown) Chief complaint: (units (unknown) date) Hip pain unknown) (unknown) (no (unknown) (unknown) Chloride 95 L (units ( unknown) date) unknown) (unknown) (no (unknown) (unknown) Chloride (units (unkno wn) date) unknown) (unknown) (no (unknown) (unknown) Creatinine 0.25 L (units (unknown) date) unknown) (unknown) (no (unknown) (unknown) Creatinine (units (unk nown) date) unknown) (unknown) (no (unknown) (unknown) Critical Care time: (unit s (unknown) date) unknown) (unknown) (no (unknown) (unknown) : 1960 (units (unknown) date) Acct:[id number] unknown) (unknown) (no (unknown) (unknown) Date Patient Seen: (units (unknown) date) 05/04/22 unknown) (unknown) (no (unknown) (unknown) Date of Service: (units (unknown) date) 05/04/22 unknown) (unknown) (no (unknown) (unknown) Environment (units (un known) date) unknown) (unknown) (no (unknown) (unknown) Eos # (Auto) 100 (units (unknown) date) unknown) (unknown) (no (unknown) (unknown) Eos # (Auto) (units (u nknown) date) unknown) (unknown) (no (unknown) (unknown) Eos % (Auto) 0.4 L (units (unknown) date) unknown) (unknown) (no (unknown) (unknown) Eos % (Auto) (units (u nknown) date) unknown) (unknown) (no (unknown) (unknown) Estimated GFR > 60 (units (unknown) date) unknown) (unknown) (no (unknown) (unknown) Estimated GFR (units ( unknown) date) unknown) (unknown) (no (unknown) (unknown) Exam (units (unkno wn) date) unknown) (unknown) (no (unknown) (unknown) FH: Patient states (units (unknown) date) she is adopted and unknown) does not know her family medical history. (unknown) (no (unknown) (unknown) Family + Social (units (unknown) date) History unknown) (unknown) (no (unknown) (unknown) Feels Safe in (units ( unknown) date) Current Yes unknown) (unknown) (no (unknown) (unknown) Globulin 3.6 (units (u nknown) date) unknown) (unknown) (no (unknown) (unknown) Globulin (units (unkno wn) date) unknown) (unknown) (no (unknown) (unknown) Glucose 86 (units (unk nown) date) unknown) (unknown) (no (unknown) (unknown) Glucose (units (unkno wn) date) unknown) (unknown) (no (unknown) (unknown) Hct 28.8 L (units (unk nown) date) unknown) (unknown) (no (unknown) (unknown) Hct (units (unkno wn) date) unknown) (unknown) (no (unknown) (unknown) He stated she was (units (unknown) date) urinating all the unknown) time and she stated she was having a hard (unknown) (no (unknown) (unknown) Hgb 9.9 L (units (unkn own) date) unknown) (unknown) (no (unknown) (unknown) Hgb (units (unkno wn) date) unknown) (unknown) (no (unknown) (unknown) History + Physical (units (unknown) date) Report unknown) (unknown) (no (unknown) (unknown) History of Present (units (unknown) date) Illness unknown) (unknown) (no (unknown) (unknown) Home Medications (units (unknown) date) and Allergies unknown) (unknown) (no (unknown) (unknown) Home Medications (units (unknown) date) unknown) (unknown) (no (unknown) (unknown) I spent a total of (units (unknown) date) [] minutes of unknown) critical care time on this patient's care (unknown) (no (unknown) (unknown) [facility] (units (unknown) date) [address] unknown) [place] [address] (unknown) (no (unknown) (unknown) Laboratory Results (units (unknown) date) - last 24 hr unknown) (unknown) (no (unknown) (unknown) Labs (units (unkno wn) date) unknown) (unknown) (no (unknown) (unknown) Labs: (units (unkno wn) date) unknown) (unknown) (no (unknown) (unknown) Lactate 1.8 (units (un known) date) unknown) (unknown) (no (unknown) (unknown) Lactate (units (unkno wn) date) unknown) (unknown) (no (unknown) (unknown) Nichol Meng is a (unit s (unknown) date) 61 y.o. female who unknown) was admitted on 04/30/2022 after a fall (unknown) (no (unknown) (unknown) Lymph # (Auto) 2200 (unit s (unknown) date) unknown) (unknown) (no (unknown) (unknown) Lymph # (Auto) (units (unknown) date) unknown) (unknown) (no (unknown) (unknown) Lymph % (Auto) 15.3 (unit s (unknown) date) L unknown) (unknown) (no (unknown) (unknown) Lymph % (Auto) (units (unknown) date) unknown) (unknown) (no (unknown) (unknown) MCH 35.6 H (units (unk nown) date) unknown) (unknown) (no (unknown) (unknown) MCH (units (unkno wn) date) unknown) (unknown) (no (unknown) (unknown) MCHC 34.4 (units (unkn own) date) unknown) (unknown) (no (unknown) (unknown) MCHC (units (unkno wn) date) unknown) (unknown) (no (unknown) (unknown) MCV 103.5 H (units (un known) date) unknown) (unknown) (no (unknown) (unknown) MCV (units (unkno wn) date) unknown) (unknown) (no (unknown) (unknown) Medication (units (unk nown) date) Instructions unknown) Recorded Confirmed Type (unknown) (no (unknown) (unknown) Meds (units (unkno wn) date) unknown) (unknown) (no (unknown) (unknown) [place] # (Auto) 1200 (units (unknown) date) H unknown) (unknown) (no (unknown) (unknown) [place] # (Auto) (units ( unknown) date) unknown) (unknown) (no (unknown) (unknown) [place] % (Auto) 8.1 (units (unknown) date) unknown) (unknown) (no (unknown) (unknown) [place] % (Auto) (units ( unknown) date) unknown) (unknown) (no (unknown) (unknown) Narrative: (units (unk nown) date) unknown) (unknown) (no (unknown) (unknown) Neut # (Auto) 08250 (unit s (unknown) date) H unknown) (unknown) (no (unknown) (unknown) Neut # (Auto) (units ( unknown) date) unknown) (unknown) (no (unknown) (unknown) Neut % (Auto) 75.6 (units (unknown) date) H unknown) (unknown) (no (unknown) (unknown) Neut % (Auto) (units ( unknown) date) unknown) (unknown) (no (unknown) (unknown) Objective (units (unkn own) date) unknown) (unknown) (no (unknown) (unknown) Oxygen Delivery (units (unknown) date) Method Room Air Room unknown) Air (unknown) (no (unknown) (unknown) Oxygen Delivery (units (unknown) date) Method Room Air unknown) (unknown) (no (unknown) (unknown) Patient History (units (unknown) date) unknown) (unknown) (no (unknown) (unknown) Patient: (units (unkno wn) date) Nihcol Meng R unknown) MR#: [id number] (unknown) (no (unknown) (unknown) Penicillins (units (un known) date) [PENICILLINS] unknown) AdvReac Intermediate rash Verified 05/04/22 16:59 (unknown) (no (unknown) (unknown) Plt Count 407 H (units (unknown) date) unknown) (unknown) (no (unknown) (unknown) Plt Count (units (unkn own) date) unknown) (unknown) (no (unknown) (unknown) Potassium 4.0 (units ( unknown) date) unknown) (unknown) (no (unknown) (unknown) Potassium (units (unkn own) date) unknown) (unknown) (no (unknown) (unknown) Prior Living (units (u nknown) date) Arrangements House unknown) (unknown) (no (unknown) (unknown) Procalcitonin 1.56 (units (unknown) date) H unknown) (unknown) (no (unknown) (unknown) Procalcitonin (units ( unknown) date) unknown) (unknown) (no (unknown) (unknown) Provider: (units (unkn own) date) Elvia Gtz unknown) (unknown) (no (unknown) (unknown) Pulse Oximetry 99 (units (unknown) date) 98 unknown) (unknown) (no (unknown) (unknown) Pulse Rate 95 H 109 (unit s (unknown) date) H unknown) (unknown) (no (unknown) (unknown) RBC 2.79 L (units (unk nown) date) unknown) (unknown) (no (unknown) (unknown) RBC (units (unkno wn) date) unknown) (unknown) (no (unknown) (unknown) RDW 13.3 (units (unkno wn) date) unknown) (unknown) (no (unknown) (unknown) RDW (units (unkno wn) date) unknown) (unknown) (no (unknown) (unknown) Respiratory Rate 17 (unit s (unknown) date) 10 L unknown) (unknown) (no (unknown) (unknown) Result Diagrams: (units (unknown) date) unknown) (unknown) (no (unknown) (unknown) Rx (units (unkno wn) date) unknown) (unknown) (no (unknown) (unknown) SARS-CoV-2 (PCR) (units (unknown) date) Negative unknown) (unknown) (no (unknown) (unknown) SARS-CoV-2 (PCR) (units (unknown) date) unknown) (unknown) (no (unknown) (unknown) Safety + (units (unkno wn) date) Behavioral: unknown) (unknown) (no (unknown) (unknown) Signed By: (units (unk nown) date) unknown) (unknown) (no (unknown) (unknown) Smoking Status (units (unknown) date) Current every day unknown) smoker (unknown) (no (unknown) (unknown) Smoking packs per (units (unknown) date) day 1.5 unknown) (unknown) (no (unknown) (unknown) Social History: (units (unknown) date) unknown) (unknown) (no (unknown) (unknown) Sodium 129 L (units (u nknown) date) unknown) (unknown) (no (unknown) (unknown) Sodium (units (unkno wn) date) unknown) (unknown) (no (unknown) (unknown) Status post (units (un known) date) appendectomy unknown) (unknown) (no (unknown) (unknown) Status post breast (units (unknown) date) lumpectomy unknown) (unknown) (no (unknown) (unknown) Status post (units (un known) date) hysterectomy unknown) (unknown) (no (unknown) (unknown) Substance Use Type (units (unknown) date) does not use unknown) (unknown) (no (unknown) (unknown) Surgical History (units (unknown) date) (Reviewed 05/04/22 @ unknown) 19:33 by Roe Su PA-C) (unknown) (no (unknown) (unknown) Temperature 98 F (units (unknown) date) unknown) (unknown) (no (unknown) (unknown) Threatened By a (units (unknown) date) Person unknown) (unknown) (no (unknown) (unknown) Time Patient Seen: (units (unknown) date) 21:36 unknown) (unknown) (no (unknown) (unknown) Time Spent With (units (unknown) date) Patient unknown) (unknown) (no (unknown) (unknown) Tobacco + Substance (unit s (unknown) date) use: unknown) (unknown) (no (unknown) (unknown) Tobacco type (units (u nknown) date) cigarettes unknown) (unknown) (no (unknown) (unknown) Today, her son (units (unknown) date) living in [place], unknown) arrived and saw that she was failing at home. (unknown) (no (unknown) (unknown) Total Bilirubin 0.8 (unit s (unknown) date) unknown) (unknown) (no (unknown) (unknown) Total Bilirubin (units (unknown) date) unknown) (unknown) (no (unknown) (unknown) Total Creatine (units (unknown) date) Kinase 64 unknown) (unknown) (no (unknown) (unknown) Total Creatine (units (unknown) date) Kinase unknown) (unknown) (no (unknown) (unknown) Total Protein 6.9 (units (unknown) date) unknown) (unknown) (no (unknown) (unknown) Total Protein (units ( unknown) date) unknown) (unknown) (no (unknown) (unknown) Troponin I < 0.012 (units (unknown) date) unknown) (unknown) (no (unknown) (unknown) Troponin I (units (unk nown) date) unknown) (unknown) (no (unknown) (unknown) Ur Culture (units (unk nown) date) Indicated? Specimen unknown) cultured (unknown) (no (unknown) (unknown) Ur Culture (units (unk nown) date) Indicated? unknown) (unknown) (no (unknown) (unknown) Ur Leukocyte (units (u nknown) date) Esterase 1+ H unknown) (unknown) (no (unknown) (unknown) Ur Leukocyte (units (u nknown) date) Esterase unknown) (unknown) (no (unknown) (unknown) Ur Specific [place] (unit s (unknown) date) <=1.005 unknown) (unknown) (no (unknown) (unknown) Ur Specific [place] (unit s (unknown) date) unknown) (unknown) (no (unknown) (unknown) Ur Squamous Epith (units (unknown) date) Cells 0-1 /hpf unknown) (unknown) (no (unknown) (unknown) Ur Squamous Epith (units (unknown) date) Cells unknown) (unknown) (no (unknown) (unknown) Urine Appearance (units (unknown) date) Clear unknown) (unknown) (no (unknown) (unknown) Urine Appearance (units (unknown) date) unknown) (unknown) (no (unknown) (unknown) Urine Bacteria Few (units (unknown) date) (2-10) H unknown) (unknown) (no (unknown) (unknown) Urine Bacteria (units (unknown) date) unknown) (unknown) (no (unknown) (unknown) Urine Bilirubin (units (unknown) date) Negative unknown) (unknown) (no (unknown) (unknown) Urine Bilirubin (units (unknown) date) unknown) (unknown) (no (unknown) (unknown) Urine Color Yellow (units (unknown) date) unknown) (unknown) (no (unknown) (unknown) Urine Color (units (un known) date) unknown) (unknown) (no (unknown) (unknown) Urine Glucose (UA) (units (unknown) date) Negative unknown) (unknown) (no (unknown) (unknown) Urine Glucose (UA) (units (unknown) date) unknown) (unknown) (no (unknown) (unknown) Urine Ketones (units ( unknown) date) Negative unknown) (unknown) (no (unknown) (unknown) Urine Ketones (units ( unknown) date) unknown) (unknown) (no (unknown) (unknown) Urine Nitrate (units ( unknown) date) Negative unknown) (unknown) (no (unknown) (unknown) Urine Nitrate (units ( unknown) date) unknown) (unknown) (no (unknown) (unknown) Urine Occult Blood (units (unknown) date) 1+ H unknown) (unknown) (no (unknown) (unknown) Urine Occult Blood (units (unknown) date) unknown) (unknown) (no (unknown) (unknown) Urine Protein (units ( unknown) date) Negative unknown) (unknown) (no (unknown) (unknown) Urine Protein (units ( unknown) date) unknown) (unknown) (no (unknown) (unknown) Urine RBC 0-1/hpf (units (unknown) date) unknown) (unknown) (no (unknown) (unknown) Urine RBC (units (unkn own) date) unknown) (unknown) (no (unknown) (unknown) Urine Urobilinogen (units (unknown) date) 0.2 unknown) (unknown) (no (unknown) (unknown) Urine Urobilinogen (units (unknown) date) unknown) (unknown) (no (unknown) (unknown) Urine WBC 1-5/hpf (units (unknown) date) unknown) (unknown) (no (unknown) (unknown) Urine WBC (units (unkn own) date) unknown) (unknown) (no (unknown) (unknown) Urine pH 7.0 (units (u nknown) date) unknown) (unknown) (no (unknown) (unknown) Urine pH (units (unkno wn) date) unknown) (unknown) (no (unknown) (unknown) Vital Signs (units (un known) date) unknown) (unknown) (no (unknown) (unknown) WBC 14.1 H (units (unk nown) date) unknown) (unknown) (no (unknown) (unknown) WBC (units (unkno wn) date) unknown) (unknown) (no (unknown) (unknown) X-ray of the pelvis (unit s (unknown) date) reported left unknown) intratrochanteric hip fracture with good (unknown) (no (unknown) (unknown) [Embedded Image Not (unit s (unknown) date) Available] unknown) (unknown) (no (unknown) (unknown) acetaminophen 325 mg (unit s (unknown) date) tablet 650 mg PO unknown) Q6HR PRN Fever/Mild Pain 05/02/22 05/04/22 (unknown) (no (unknown) (unknown) alcohol intake (units (unknown) date) current unknown) (unknown) (no (unknown) (unknown) alcohol intake (units (unknown) date) frequency 3 or more unknown) drinks per day (unknown) (no (unknown) (unknown) alcohol (units (unkno wn) date) intoxication. She unknown) was advised to avoid alcohol use. She was quite (unknown) (no (unknown) (unknown) alignment in a (units (unknown) date) fracture of the left unknown) ischial tuberosity with sclerosis. (unknown) (no (unknown) (unknown) deemed to have (units (unknown) date) significant unknown) malnutrition and saw dietary who recommended trying (unknown) (no (unknown) (unknown) difficile a number (units (unknown) date) of years ago, did unknown) not complete the medical treatment (stated (unknown) (no (unknown) (unknown) discharged home (units (unknown) date) with home PT. unknown) Unfortunately during her hospital stay her (unknown) (no (unknown) (unknown) drinking again. Her (unit s (unknown) date) son also mentioned unknown) she had been previously treated for C. (unknown) (no (unknown) (unknown) enoxaparin 40 (units ( unknown) date) mg/0.4 mL 40 mg (0.4 unknown) mL) SUBCUT DAILY 28 05/02/22 05/04/22 Rx (unknown) (no (unknown) (unknown) fluid restriction (units (unknown) date) and improved diet unknown) and discharged on May 04. She was (unknown) (no (unknown) (unknown) folic acid 1 mg (units (unknown) date) tablet 1 mg PO DAILY unknown) #30 tabs 05/02/22 05/04/22 Rx (unknown) (no (unknown) (unknown) for which she had a (unit s (unknown) date) pelvic fracture and unknown) left hip fracture. She did have the hip (unknown) (no (unknown) (unknown) fracture repaired (units (unknown) date) on the day of unknown) admission. She declined SNF and ultimately was (unknown) (no (unknown) (unknown) half of (units (unkno wn) date) cigarettes/day and unknown) resumed drinking ('some days one drink, others more') (unknown) (no (unknown) (unknown) household members (units (unknown) date) none unknown) (unknown) (no (unknown) (unknown) passed (units (unknown) date) away. Her likely unknown) cause of injury is mechanical fall due to (unknown) (no (unknown) (unknown) hyponatremic on (units (unknown) date) admission at that unknown) time with a sodium of 122, and improved with (unknown) (no (unknown) (unknown) infection due to (units (unknown) date) persistent diarrhea. unknown) She does admit to smoking a pack and a (unknown) (no (unknown) (unknown) malnutrition is (units (unknown) date) thought to unknown) potentially negatively affect her wound healing. (unknown) (no (unknown) (unknown) mg tablet (units (unkn own) date) unknown) (unknown) (no (unknown) (unknown) morphine AdvReac (units (unknown) date) Intermediate unknown) Hallucinati Verified 05/04/22 16:59 (unknown) (no (unknown) (unknown) ng (units (unkno wn) date) unknown) (unknown) (no (unknown) (unknown) oxycodone 5 mg (units (unknown) date) tablet 5 mg PO Q4HR unknown) PRN Pain, Moderate 05/02/22 05/04/22 Rx (unknown) (no (unknown) (unknown) sennosides 8.6 mg (units (unknown) date) tablet (senna) 8.6 unknown) mg PO BID PRN Constipation #30 05/02/22 (unknown) (no (unknown) (unknown) shakes and avoid (units (unknown) date) alcohol and follow unknown) up with her PCP as an outpatient. 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 (unknown) (no (unknown) (unknown) wheelchair. She (units (unknown) date) states her pain was unknown) well controlled, son noted she began Result panel 49 (unknown) (no (unknown) (unknown) (no value) (units (unk nown) date) unknown) (unknown) (no (unknown) (unknown) (1-3) #30 tabs (units (unknown) date) unknown) (unknown) (no (unknown) (unknown) (4-6) #30 tabs (units (unknown) date) unknown) (unknown) (no (unknown) (unknown) (past 8 hours): (units (unknown) date) unknown) (unknown) (no (unknown) (unknown) * Ativan, consider (units (unknown) date) librium taper if unknown) with active withdrawal (unknown) (no (unknown) (unknown) * BMI is 17 (units (un known) date) unknown) (unknown) (no (unknown) (unknown) * C. difficile PCR (units (unknown) date) has been ordered unknown) (unknown) (no (unknown) (unknown) * CIWA protocol (units (unknown) date) unknown) (unknown) (no (unknown) (unknown) * Chronic alcohol (units (unknown) date) use likely unknown) contributing (unknown) (no (unknown) (unknown) * Continue (units (unk nown) date) multivitamins, unknown) thiamine and folic acid (unknown) (no (unknown) (unknown) * Culture is (units (u nknown) date) pending unknown) (unknown) (no (unknown) (unknown) * Daily weights (units (unknown) date) unknown) (unknown) (no (unknown) (unknown) * (units (unkno wn) date) Dietary/nutritional unknown) consult (unknown) (no (unknown) (unknown) * General diet (units (unknown) date) unknown) (unknown) (no (unknown) (unknown) * Generalized (units ( unknown) date) weakness and unknown) debility should justify acute rehab which patient is (unknown) (no (unknown) (unknown) * PT eval in the am (unit s (unknown) date) unknown) (unknown) (no (unknown) (unknown) * Pain control with (unit s (unknown) date) tyelenol, po unknown) hydrocodone, po oxycodone (unknown) (no (unknown) (unknown) * Patient denies (units (unknown) date) having issues in the unknown) past with withdrawal (unknown) (no (unknown) (unknown) * She is started on (unit s (unknown) date) IV cefepime unknown) (unknown) (no (unknown) (unknown) * She is written (units (unknown) date) for a 14 mcg unknown) nicoderm patch (unknown) (no (unknown) (unknown) * Will notify ortho (unit s (unknown) date) of patient's readmit unknown) (unknown) (no (unknown) (unknown) * Will stop stool (units (unknown) date) softeners if she unknown) develops diarrhea (unknown) (no (unknown) (unknown) [id number] (units (unkno wn) date) unknown) (unknown) (no (unknown) (unknown) 05/04/22 05/04/22 (units (unknown) date) 05/04/22 unknown) (unknown) (no (unknown) (unknown) 05/04/22 16:46 (units (unknown) date) unknown) (unknown) (no (unknown) (unknown) 05/04/22 2215 (units ( unknown) date) unknown) (unknown) (no (unknown) (unknown) 05/04/22 Rx (units (un known) date) unknown) (unknown) (no (unknown) (unknown) 05/04/22 (units (unkno wn) date) unknown) (unknown) (no (unknown) (unknown) 15:42 05/04/22 (units (unknown) date) unknown) (unknown) (no (unknown) (unknown) 16:46 16:46 16:46 (units (unknown) date) unknown) (unknown) (no (unknown) (unknown) 16:46 16:46 17:41 (units (unknown) date) unknown) (unknown) (no (unknown) (unknown) 19:31 (units (unkno wn) date) unknown) (unknown) (no (unknown) (unknown) ALT 19 (units (unkno wn) date) unknown) (unknown) (no (unknown) (unknown) ALT (units (unkno wn) date) unknown) (unknown) (no (unknown) (unknown) AST 40 H (units (unkno wn) date) unknown) (unknown) (no (unknown) (unknown) AST (units (unkno wn) date) unknown) (unknown) (no (unknown) (unknown) Abd: soft, (units (unk nown) date) non-tender, unknown) normoactive BTs (unknown) (no (unknown) (unknown) Age/Sex: 61 / F (units (unknown) date) unknown) (unknown) (no (unknown) (unknown) Albumin 3.3 L (units ( unknown) date) unknown) (unknown) (no (unknown) (unknown) Albumin (units (unkno wn) date) unknown) (unknown) (no (unknown) (unknown) Albumin/Globulin (units (unknown) date) Ratio 0.9 L unknown) (unknown) (no (unknown) (unknown) Albumin/Globulin (units (unknown) date) Ratio unknown) (unknown) (no (unknown) (unknown) Alcohol dependence, (unit s (unknown) date) chronic and unknown) longstanding (unknown) (no (unknown) (unknown) Alkaline (units (unkno wn) date) Phosphatase 115 unknown) (unknown) (no (unknown) (unknown) Alkaline (units (unkno wn) date) Phosphatase unknown) (unknown) (no (unknown) (unknown) Allergies (units (unkn own) date) unknown) (unknown) (no (unknown) (unknown) Allergy/AdvReac (units (unknown) date) Type Severity unknown) Reaction Status Date / Time (unknown) (no (unknown) (unknown) Amorphous Sediment (units (unknown) date) 1 unknown) (unknown) (no (unknown) (unknown) Amorphous Sediment (units (unknown) date) unknown) (unknown) (no (unknown) (unknown) Assessment + Plan (units (unknown) date) narrative: unknown) (unknown) (no (unknown) (unknown) Assessment + Plan (units (unknown) date) unknown) (unknown) (no (unknown) (unknown) BUN 4 L (units (unkno wn) date) unknown) (unknown) (no (unknown) (unknown) BUN (units (unkno wn) date) unknown) (unknown) (no (unknown) (unknown) BUN/Creatinine (units (unknown) date) Ratio 16.0 unknown) (unknown) (no (unknown) (unknown) BUN/Creatinine (units (unknown) date) Ratio unknown) (unknown) (no (unknown) (unknown) Baso # (Auto) 100 (units (unknown) date) unknown) (unknown) (no (unknown) (unknown) Baso # (Auto) (units ( unknown) date) unknown) (unknown) (no (unknown) (unknown) Baso % (Auto) 0.6 (units (unknown) date) unknown) (unknown) (no (unknown) (unknown) Baso % (Auto) (units ( unknown) date) unknown) (unknown) (no (unknown) (unknown) Been Physically (units (unknown) date) Hurt or No unknown) (unknown) (no (unknown) (unknown) Blood Pressure (units (unknown) date) 120/69 155/84 H unknown) (unknown) (no (unknown) (unknown) CK-MB (CK-2) Rel (units (unknown) date) Index TNP unknown) (unknown) (no (unknown) (unknown) CK-MB (CK-2) Rel (units (unknown) date) Index unknown) (unknown) (no (unknown) (unknown) CK-MB (CK-2) TNP (units (unknown) date) unknown) (unknown) (no (unknown) (unknown) CK-MB (CK-2) (units (u nknown) date) unknown) (unknown) (no (unknown) (unknown) COVID-19 status: (units (unknown) date) Negative unknown) (unknown) (no (unknown) (unknown) COVID-19 (units (unkno wn) date) unknown) (unknown) (no (unknown) (unknown) CV: RRR, no murmur (units (unknown) date) or rubs unknown) (unknown) (no (unknown) (unknown) Calcium 8.6 (units (un known) date) unknown) (unknown) (no (unknown) (unknown) Calcium (units (unkno wn) date) unknown) (unknown) (no (unknown) (unknown) Carbon Dioxide 24 (units (unknown) date) unknown) (unknown) (no (unknown) (unknown) Carbon Dioxide (units (unknown) date) unknown) (unknown) (no (unknown) (unknown) Chief complaint: (units (unknown) date) Hip pain unknown) (unknown) (no (unknown) (unknown) Chloride 95 L (units ( unknown) date) unknown) (unknown) (no (unknown) (unknown) Chloride (units (unkno wn) date) unknown) (unknown) (no (unknown) (unknown) Clinical signs and (units (unknown) date) symptoms of DVT: No unknown) (unknown) (no (unknown) (unknown) Code status: Full (units (unknown) date) code as discussed unknown) with the patient who identifies her son (unknown) (no (unknown) (unknown) Consultants None. (units (unknown) date) unknown) (unknown) (no (unknown) (unknown) Creatinine 0.25 L (units (unknown) date) unknown) (unknown) (no (unknown) (unknown) Creatinine (units (unk nown) date) unknown) (unknown) (no (unknown) (unknown) : 1960 (units (unknown) date) Acct:[id number] unknown) (unknown) (no (unknown) (unknown) Date Patient Seen: (units (unknown) date) 05/04/22 unknown) (unknown) (no (unknown) (unknown) Date of Service: (units (unknown) date) 05/04/22 unknown) (unknown) (no (unknown) (unknown) Deep Vein (units (unkn own) date) Thrombosis/Pulmonary unknown) Embolism Present on Admission: No (unknown) (no (unknown) (unknown) Dispo: Likely (units ( unknown) date) discharge to rehab, unknown) current alcohol use may be a barrier. (unknown) (no (unknown) (unknown) Environment (units (un known) date) unknown) (unknown) (no (unknown) (unknown) Eos # (Auto) 100 (units (unknown) date) unknown) (unknown) (no (unknown) (unknown) Eos # (Auto) (units (u nknown) date) unknown) (unknown) (no (unknown) (unknown) Eos % (Auto) 0.4 L (units (unknown) date) unknown) (unknown) (no (unknown) (unknown) Eos % (Auto) (units (u nknown) date) unknown) (unknown) (no (unknown) (unknown) Estimated GFR > 60 (units (unknown) date) unknown) (unknown) (no (unknown) (unknown) Estimated GFR (units ( unknown) date) unknown) (unknown) (no (unknown) (unknown) Exam Narrative: (units (unknown) date) unknown) (unknown) (no (unknown) (unknown) Exam (units (unkno wn) date) unknown) (unknown) (no (unknown) (unknown) Extremities: moves (units (unknown) date) all 4 extremities, unknown) is ambulatory, negative Laure?s sign (unknown) (no (unknown) (unknown) FEN: IV fluids: NS (units (unknown) date) at 100 ml/hour, unknown) diet: general, labs: CBC, C/BMP, liver (unknown) (no (unknown) (unknown) FH: Patient states (units (unknown) date) she is adopted and unknown) does not know her family medical history. (unknown) (no (unknown) (unknown) Family + Social (units (unknown) date) History unknown) (unknown) (no (unknown) (unknown) Feels Safe in (units ( unknown) date) Current Yes unknown) (unknown) (no (unknown) (unknown) Gen: Alert, (units (un known) date) oriented, cachectic unknown) appearing 61 y.o. female, appears (unknown) (no (unknown) (unknown) Globulin 3.6 (units (u nknown) date) unknown) (unknown) (no (unknown) (unknown) Globulin (units (unkno wn) date) unknown) (unknown) (no (unknown) (unknown) Glucose 86 (units (unk nown) date) unknown) (unknown) (no (unknown) (unknown) Glucose (units (unkno wn) date) unknown) (unknown) (no (unknown) (unknown) HEENT: (units (unkno wn) date) normocephalic, unknown) atraumatic, conjunctiva clear, sclera non-icteric, oral (unknown) (no (unknown) (unknown) Hct 28.8 L (units (unk nown) date) unknown) (unknown) (no (unknown) (unknown) Hct (units (unkno wn) date) unknown) (unknown) (no (unknown) (unknown) He stated she was (units (unknown) date) urinating all the unknown) time and she stated she was having a hard (unknown) (no (unknown) (unknown) Heart rate > 100: (units (unknown) date) Yes unknown) (unknown) (no (unknown) (unknown) Hemoptysis: No (units (unknown) date) unknown) (unknown) (no (unknown) (unknown) Hgb 9.9 L (units (unkn own) date) unknown) (unknown) (no (unknown) (unknown) Hgb (units (unkno wn) date) unknown) (unknown) (no (unknown) (unknown) History + Physical (units (unknown) date) Report unknown) (unknown) (no (unknown) (unknown) History of PE or (units (unknown) date) DVT: No unknown) (unknown) (no (unknown) (unknown) History of Present (units (unknown) date) Illness unknown) (unknown) (no (unknown) (unknown) History of (units (unk nown) date) clostridium unknown) difficile (unknown) (no (unknown) (unknown) Home Medications (units (unknown) date) and Allergies unknown) (unknown) (no (unknown) (unknown) Home Medications (units (unknown) date) unknown) (unknown) (no (unknown) (unknown) I confirm the (units (u nknown) date) patient?s Advance unknown) Care Plan is present, Code status is documented, (unknown) (no (unknown) (unknown) Immobilization at (units (unknown) date) least 3 days or surg unknown) in previous 4 weeks: Yes (unknown) (no (unknown) (unknown) [facility] (units (unknown) date) [address] [place] [address] unknown) [place] [address] (unknown) (no (unknown) (unknown) Jono her surrogate (unit s (unknown) date) and POA. unknown) (unknown) (no (unknown) (unknown) Laboratory Results (units (unknown) date) - last 24 hr unknown) (unknown) (no (unknown) (unknown) Labs (units (unkno wn) date) unknown) (unknown) (no (unknown) (unknown) Labs: (units (unkno wn) date) unknown) (unknown) (no (unknown) (unknown) Lactate 1.8 (units (un known) date) unknown) (unknown) (no (unknown) (unknown) Lactate (units (unkno wn) date) unknown) (unknown) (no (unknown) (unknown) Nichol Meng is a (unit s (unknown) date) 61 y.o. female who unknown) was admitted on 04/30/2022 after a fall (unknown) (no (unknown) (unknown) Nichol Meng is (units (unknown) date) admitted due to unknown) failed discharge, a new urinary tract (unknown) (no (unknown) (unknown) Lymph # (Auto) 2200 (unit s (unknown) date) unknown) (unknown) (no (unknown) (unknown) Lymph # (Auto) (units (unknown) date) unknown) (unknown) (no (unknown) (unknown) Lymph % (Auto) 15.3 (unit s (unknown) date) L unknown) (unknown) (no (unknown) (unknown) Lymph % (Auto) (units (unknown) date) unknown) (unknown) (no (unknown) (unknown) MCH 35.6 H (units (unk nown) date) unknown) (unknown) (no (unknown) (unknown) MCH (units (unkno wn) date) unknown) (unknown) (no (unknown) (unknown) MCHC 34.4 (units (unkn own) date) unknown) (unknown) (no (unknown) (unknown) MCHC (units (unkno wn) date) unknown) (unknown) (no (unknown) (unknown) MCV 103.5 H (units (un known) date) unknown) (unknown) (no (unknown) (unknown) MCV (units (unkno wn) date) unknown) (unknown) (no (unknown) (unknown) MIPS - Admit (units (u nknown) date) unknown) (unknown) (no (unknown) (unknown) MIPS - DC (units (unkn own) date) unknown) (unknown) (no (unknown) (unknown) Malignancy (units (unk nown) date) w/Treatment within 6 unknown) months or palliative: No (unknown) (no (unknown) (unknown) Medication (units (unk nown) date) Instructions unknown) Recorded Confirmed Type (unknown) (no (unknown) (unknown) Meds (units (unkno wn) date) unknown) (unknown) (no (unknown) (unknown) [place] # (Auto) 1200 (units (unknown) date) H unknown) (unknown) (no (unknown) (unknown) [place] # (Auto) (units ( unknown) date) unknown) (unknown) (no (unknown) (unknown) [place] % (Auto) 8.1 (units (unknown) date) unknown) (unknown) (no (unknown) (unknown) [place] % (Auto) (units ( unknown) date) unknown) (unknown) (no (unknown) (unknown) Narrative (units (unkn own) date) unknown) (unknown) (no (unknown) (unknown) Narrative: (units (unk nown) date) unknown) (unknown) (no (unknown) (unknown) Neck: supple, full (units (unknown) date) ROM, no JVD, trachea unknown) is midline (unknown) (no (unknown) (unknown) Neuro: Alert and (units (unknown) date) oriented X 4 w/no unknown) focal deficits. Speech clear and coherent. (unknown) (no (unknown) (unknown) Neut # (Auto) [id number] (unit s (unknown) date) H unknown) (unknown) (no (unknown) (unknown) Neut # (Auto) (units ( unknown) date) unknown) (unknown) (no (unknown) (unknown) Neut % (Auto) 75.6 (units (unknown) date) H unknown) (unknown) (no (unknown) (unknown) Neut % (Auto) (units ( unknown) date) unknown) (unknown) (no (unknown) (unknown) Objective (units (unkn own) date) unknown) (unknown) (no (unknown) (unknown) Oxygen Delivery (units (unknown) date) Method Room Air Room unknown) Air (unknown) (no (unknown) (unknown) Oxygen Delivery (units (unknown) date) Method Room Air unknown) (unknown) (no (unknown) (unknown) PE is #1 Dx or (units (unknown) date) equally likely: No unknown) (unknown) (no (unknown) (unknown) POD#4 left (units (unk nown) date) introchanteric hip unknown) repair (unknown) (no (unknown) (unknown) Patient History (units (unknown) date) unknown) (unknown) (no (unknown) (unknown) Patient is admitted (unit s (unknown) date) to the inpatient unknown) service due to the severity of disease, (unknown) (no (unknown) (unknown) Patient: (units (unkno wn) date) Nichol Meng R unknown) MR#: [id number] (unknown) (no (unknown) (unknown) Penicillins (units (un known) date) [PENICILLINS] unknown) AdvReac Intermediate rash Verified 05/04/22 16:59 (unknown) (no (unknown) (unknown) Plt Count 407 H (units (unknown) date) unknown) (unknown) (no (unknown) (unknown) Plt Count (units (unkn own) date) unknown) (unknown) (no (unknown) (unknown) Potassium 4.0 (units ( unknown) date) unknown) (unknown) (no (unknown) (unknown) Potassium (units (unkn own) date) unknown) (unknown) (no (unknown) (unknown) Prior Living (units (u nknown) date) Arrangements House unknown) (unknown) (no (unknown) (unknown) Procalcitonin 1.56 (units (unknown) date) H unknown) (unknown) (no (unknown) (unknown) Procalcitonin (units ( unknown) date) unknown) (unknown) (no (unknown) (unknown) Provider: (units (unkn own) date) lEvia Gtz unknown) (unknown) (no (unknown) (unknown) Psyche: anxious (units (unknown) date) affect. unknown) (unknown) (no (unknown) (unknown) Pulse Oximetry 99 (units (unknown) date) 98 unknown) (unknown) (no (unknown) (unknown) Pulse Rate 95 H 109 (unit s (unknown) date) H unknown) (unknown) (no (unknown) (unknown) RBC 2.79 L (units (unk nown) date) unknown) (unknown) (no (unknown) (unknown) RBC (units (unkno wn) date) unknown) (unknown) (no (unknown) (unknown) RDW 13.3 (units (unkno wn) date) unknown) (unknown) (no (unknown) (unknown) RDW (units (unkno wn) date) unknown) (unknown) (no (unknown) (unknown) ROS: Yes All (units (u nknown) date) systems reviewed unknown) with the patient and are negative except as (unknown) (no (unknown) (unknown) Resp: Lungs CTA, (units (unknown) date) non-labored unknown) breathing (unknown) (no (unknown) (unknown) Respiratory Rate 17 (unit s (unknown) date) 10 L unknown) (unknown) (no (unknown) (unknown) Result Diagrams: (units (unknown) date) unknown) (unknown) (no (unknown) (unknown) Result date/Date (units (unknown) date) tested (Pos, unknown) Neg/Pending): 05/04/22 (unknown) (no (unknown) (unknown) Review of Systems (units (unknown) date) unknown) (unknown) (no (unknown) (unknown) Rx (units (unkno wn) date) unknown) (unknown) (no (unknown) (unknown) SARS-CoV-2 (PCR) (units (unknown) date) Negative unknown) (unknown) (no (unknown) (unknown) SARS-CoV-2 (PCR) (units (unknown) date) unknown) (unknown) (no (unknown) (unknown) SCDs. (units (unkno wn) date) unknown) (unknown) (no (unknown) (unknown) Safety + (units (unkno wn) date) Behavioral: unknown) (unknown) (no (unknown) (unknown) Scores (units (unkno wn) date) unknown) (unknown) (no (unknown) (unknown) Severe protein (units (unknown) date) calorie malnution unknown) (unknown) (no (unknown) (unknown) Signed (units (unkno wn) date) By:<Electronically unknown) signed by Elvia Gtz> (unknown) (no (unknown) (unknown) Skin: no lesions or (unit s (unknown) date) rashes, dry and unknown) intact (unknown) (no (unknown) (unknown) Smoking Status (units (unknown) date) Current every day unknown) smoker (unknown) (no (unknown) (unknown) Smoking packs per (units (unknown) date) day 1.5 unknown) (unknown) (no (unknown) (unknown) Social History: (units (unknown) date) unknown) (unknown) (no (unknown) (unknown) Sodium 129 L (units (u nknown) date) unknown) (unknown) (no (unknown) (unknown) Sodium (units (unkno wn) date) unknown) (unknown) (no (unknown) (unknown) Status post (units (un known) date) appendectomy unknown) (unknown) (no (unknown) (unknown) Status post breast (units (unknown) date) lumpectomy unknown) (unknown) (no (unknown) (unknown) Status post (units (un known) date) hysterectomy unknown) (unknown) (no (unknown) (unknown) Substance Use Type (units (unknown) date) does not use unknown) (unknown) (no (unknown) (unknown) Surgical History (units (unknown) date) (Reviewed 05/04/22 @ unknown) 19:33 by Roe Su PA-C) (unknown) (no (unknown) (unknown) Surrogate decision (units (unknown) date) maker is in unknown) patient?s record: Yes (unknown) (no (unknown) (unknown) Temperature 98 F (units (unknown) date) unknown) (unknown) (no (unknown) (unknown) The patient has (units (unknown) date) current or prior unknown) documentation of left ventricular ejection (unknown) (no (unknown) (unknown) Threatened By a (units (unknown) date) Person unknown) (unknown) (no (unknown) (unknown) Time Patient Seen: (units (unknown) date) 21:36 unknown) (unknown) (no (unknown) (unknown) Tobacco + Substance (unit s (unknown) date) use: unknown) (unknown) (no (unknown) (unknown) Tobacco dependence, (unit s (unknown) date) chronic and unknown) longstanding (unknown) (no (unknown) (unknown) Tobacco type (units (u nknown) date) cigarettes unknown) (unknown) (no (unknown) (unknown) Today, her son (units (unknown) date) living in [place], unknown) arrived and saw that she was failing at home. (unknown) (no (unknown) (unknown) Total Bilirubin 0.8 (unit s (unknown) date) unknown) (unknown) (no (unknown) (unknown) Total Bilirubin (units (unknown) date) unknown) (unknown) (no (unknown) (unknown) Total Creatine (units (unknown) date) Kinase 64 unknown) (unknown) (no (unknown) (unknown) Total Creatine (units (unknown) date) Kinase unknown) (unknown) (no (unknown) (unknown) Total Protein 6.9 (units (unknown) date) unknown) (unknown) (no (unknown) (unknown) Total Protein (units ( unknown) date) unknown) (unknown) (no (unknown) (unknown) Troponin I < 0.012 (units (unknown) date) unknown) (unknown) (no (unknown) (unknown) Troponin I (units (unk nown) date) unknown) (unknown) (no (unknown) (unknown) Ur Culture (units (unk nown) date) Indicated? Specimen unknown) cultured (unknown) (no (unknown) (unknown) Ur Culture (units (unk nown) date) Indicated? unknown) (unknown) (no (unknown) (unknown) Ur Leukocyte (units (u nknown) date) Esterase 1+ H unknown) (unknown) (no (unknown) (unknown) Ur Leukocyte (units (u nknown) date) Esterase unknown) (unknown) (no (unknown) (unknown) Ur Specific [place] (unit s (unknown) date) <=1.005 unknown) (unknown) (no (unknown) (unknown) Ur Specific [place] (unit s (unknown) date) unknown) (unknown) (no (unknown) (unknown) Ur Squamous Epith (units (unknown) date) Cells 0-1 /hpf unknown) (unknown) (no (unknown) (unknown) Ur Squamous Epith (units (unknown) date) Cells unknown) (unknown) (no (unknown) (unknown) Urinary tract (units ( unknown) date) infection, acute and unknown) present on admission (unknown) (no (unknown) (unknown) Urine Appearance (units (unknown) date) Clear unknown) (unknown) (no (unknown) (unknown) Urine Appearance (units (unknown) date) unknown) (unknown) (no (unknown) (unknown) Urine Bacteria Few (units (unknown) date) (2-10) H unknown) (unknown) (no (unknown) (unknown) Urine Bacteria (units (unknown) date) unknown) (unknown) (no (unknown) (unknown) Urine Bilirubin (units (unknown) date) Negative unknown) (unknown) (no (unknown) (unknown) Urine Bilirubin (units (unknown) date) unknown) (unknown) (no (unknown) (unknown) Urine Color Yellow (units (unknown) date) unknown) (unknown) (no (unknown) (unknown) Urine Color (units (un known) date) unknown) (unknown) (no (unknown) (unknown) Urine Glucose (UA) (units (unknown) date) Negative unknown) (unknown) (no (unknown) (unknown) Urine Glucose (UA) (units (unknown) date) unknown) (unknown) (no (unknown) (unknown) Urine Ketones (units ( unknown) date) Negative unknown) (unknown) (no (unknown) (unknown) Urine Ketones (units ( unknown) date) unknown) (unknown) (no (unknown) (unknown) Urine Nitrate (units ( unknown) date) Negative unknown) (unknown) (no (unknown) (unknown) Urine Nitrate (units ( unknown) date) unknown) (unknown) (no (unknown) (unknown) Urine Occult Blood (units (unknown) date) 1+ H unknown) (unknown) (no (unknown) (unknown) Urine Occult Blood (units (unknown) date) unknown) (unknown) (no (unknown) (unknown) Urine Protein (units ( unknown) date) Negative unknown) (unknown) (no (unknown) (unknown) Urine Protein (units ( unknown) date) unknown) (unknown) (no (unknown) (unknown) Urine RBC 0-1/hpf (units (unknown) date) unknown) (unknown) (no (unknown) (unknown) Urine RBC (units (unkn own) date) unknown) (unknown) (no (unknown) (unknown) Urine Urobilinogen (units (unknown) date) 0.2 unknown) (unknown) (no (unknown) (unknown) Urine Urobilinogen (units (unknown) date) unknown) (unknown) (no (unknown) (unknown) Urine WBC 1-5/hpf (units (unknown) date) unknown) (unknown) (no (unknown) (unknown) Urine WBC (units (unkn own) date) unknown) (unknown) (no (unknown) (unknown) Urine pH 7.0 (units (u nknown) date) unknown) (unknown) (no (unknown) (unknown) Urine pH (units (unkno wn) date) unknown) (unknown) (no (unknown) (unknown) VTE Prophylaxis: (units (unknown) date) Wells risk score 3 unknown) Enoxaparin 40 mg subQ once daily Bilateral (unknown) (no (unknown) (unknown) VTE (units (unkno wn) date) unknown) (unknown) (no (unknown) (unknown) Vital Signs (units (un known) date) unknown) (unknown) (no (unknown) (unknown) WBC 14.1 H (units (unk nown) date) unknown) (unknown) (no (unknown) (unknown) WBC (units (unkno wn) date) unknown) (unknown) (no (unknown) (unknown) Wells' Criteria for (unit s (unknown) date) PE unknown) (unknown) (no (unknown) (unknown) Karan' PE Score (units (unknown) date) total: 3.0 unknown) (unknown) (no (unknown) (unknown) X-ray of the pelvis (unit s (unknown) date) reported left unknown) intratrochanteric hip fracture with good (unknown) (no (unknown) (unknown) [Embedded Image Not (unit s (unknown) date) Available] unknown) (unknown) (no (unknown) (unknown) [X] I have utilized (unit s (unknown) date) all available unknown) immediate resources to obtain, update, or (unknown) (no (unknown) (unknown) acetaminophen 325 mg (unit s (unknown) date) tablet 650 mg PO unknown) Q6HR PRN Fever/Mild Pain 05/02/22 05/04/22 (unknown) (no (unknown) (unknown) afebrile, blood (units (unknown) date) pressure 155/84, unknown) heart rate 109, respiratory rate 10, oxygen (unknown) (no (unknown) (unknown) ago, did not (units (u nknown) date) complete the medical unknown) treatment (stated she did not like the taste (unknown) (no (unknown) (unknown) alcohol intake (units (unknown) date) current unknown) (unknown) (no (unknown) (unknown) alcohol intake (units (unknown) date) frequency 3 or more unknown) drinks per day (unknown) (no (unknown) (unknown) alcohol (units (unkno wn) date) intoxication. She unknown) was advised to avoid alcohol use. She was quite (unknown) (no (unknown) (unknown) alignment in a (units (unknown) date) fracture of the left unknown) ischial tuberosity with sclerosis. She is (unknown) (no (unknown) (unknown) count is elevated (units (unknown) date) at 14.1 hemoglobin unknown) and hematocrit are 9.9 and 28.8 (unknown) (no (unknown) (unknown) deemed to have (units (unknown) date) significant unknown) malnutrition and saw dietary who recommended trying (unknown) (no (unknown) (unknown) diarrhea. She does (units (unknown) date) admit to smoking a unknown) pack and a half of cigarettes/day and (unknown) (no (unknown) (unknown) discharged home (units (unknown) date) with home PT. unknown) Unfortunately during her hospital stay her (unknown) (no (unknown) (unknown) drinking again. (units (unknown) date) Stated bilateral unknown) extremities are mildly swollen. Her son also (unknown) (no (unknown) (unknown) elevated at 1.56. (units (unknown) date) UA is positive for unknown) UTI and cultures pending, COVID-19 PCR is (unknown) (no (unknown) (unknown) enoxaparin 40 (units ( unknown) date) mg/0.4 mL 40 mg (0.4 unknown) mL) SUBCUT DAILY 28 05/02/22 05/04/22 Rx (unknown) (no (unknown) (unknown) enzymes, Mag, (units ( unknown) date) PT/INR unknown) (unknown) (no (unknown) (unknown) fluid restriction (units (unknown) date) and improved diet unknown) and discharged on May 04. She was (unknown) (no (unknown) (unknown) folic acid 1 mg (units (unknown) date) tablet 1 mg PO DAILY unknown) #30 tabs 05/02/22 05/04/22 Rx (unknown) (no (unknown) (unknown) for which she had a (unit s (unknown) date) pelvic fracture and unknown) left hip fracture. She did have the hip (unknown) (no (unknown) (unknown) fraction (LVEF) (units (unknown) date) less than 40%, or unknown) moderate or severely depressed left (unknown) (no (unknown) (unknown) fracture repaired (units (unknown) date) on the day of unknown) admission. She declined SNF and ultimately was (unknown) (no (unknown) (unknown) household members (units (unknown) date) none unknown) (unknown) (no (unknown) (unknown) passed (units (unknown) date) away. Her likely unknown) cause of injury is mechanical fall due to (unknown) (no (unknown) (unknown) hyponatremic on (units (unknown) date) admission at that unknown) time with a sodium of 122, and improved with (unknown) (no (unknown) (unknown) infection and (units ( unknown) date) severe protein unknown) malnutrition. (unknown) (no (unknown) (unknown) malnutrition is (units (unknown) date) thought to unknown) potentially negatively affect her wound healing. (unknown) (no (unknown) (unknown) mentioned she had (units (unknown) date) been previously unknown) treated for C. difficile a number of years (unknown) (no (unknown) (unknown) mg tablet (units (unkn own) date) unknown) (unknown) (no (unknown) (unknown) midnights. (units (unk nown) date) unknown) (unknown) (no (unknown) (unknown) morphine AdvReac (units (unknown) date) Intermediate unknown) Hallucinati Verified 05/04/22 16:59 (unknown) (no (unknown) (unknown) mucosa pink and (units (unknown) date) moist unknown) (unknown) (no (unknown) (unknown) negative. (units (unkn own) date) unknown) (unknown) (no (unknown) (unknown) ng (units (unkno wn) date) unknown) (unknown) (no (unknown) (unknown) now amenable to do (units (unknown) date) unknown) (unknown) (no (unknown) (unknown) of Flagyl) and was (units (unknown) date) concerned she still unknown) had the infection due to persistent (unknown) (no (unknown) (unknown) of her liver (units (u nknown) date) enzymes are normal, unknown) albumin is low at 3.3 and procalcitonin is (unknown) (no (unknown) (unknown) older than stated (units (unknown) date) age. unknown) (unknown) (no (unknown) (unknown) otherwise (units (unkn own) date) documented unknown) (unknown) (no (unknown) (unknown) oxycodone 5 mg (units (unknown) date) tablet 5 mg PO Q4HR unknown) PRN Pain, Moderate 05/02/22 05/04/22 Rx (unknown) (no (unknown) (unknown) respectively, (units ( unknown) date) platelet count is unknown) 407, she has a left shift of 10,700, today are (unknown) (no (unknown) (unknown) resumed drinking (units (unknown) date) ('some days one unknown) drink, others more'). (unknown) (no (unknown) (unknown) review of the (units ( unknown) date) patient's current unknown) medications (unknown) (no (unknown) (unknown) risks of further (units (unknown) date) disease progression unknown) and this stay is expected to exceed 2 (unknown) (no (unknown) (unknown) saturation of 90% (units (unknown) date) on room air she unknown) weighs 46 kg with a BMI of 17. Her white (unknown) (no (unknown) (unknown) sennosides 8.6 mg (units (unknown) date) tablet (senna) 8.6 unknown) mg PO BID PRN Constipation #30 05/02/22 (unknown) (no (unknown) (unknown) shakes and avoid (units (unknown) date) alcohol and follow unknown) up with her PCP as an outpatient. 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 She (units (unknown) date) states her pain was unknown) well controlled, son noted she began Result panel 50 (unknown) (no (unknown) (unknown) (no value) (units (unk nown) date) unknown) (unknown) (no (unknown) (unknown) <Electronically (units (unknown) date) signed by Leila cordoba) Libby MorrisonOJames> (unknown) (no (unknown) (unknown) <Electronically (units (unknown) date) signed by Tamiko HongOJames> (unknown) (no (unknown) (unknown) <Electronically (units (unknown) date) signed by Roe Davies unknown) [place]> (unknown) (no (unknown) (unknown) <Leila Souza DO (unit s (unknown) date) - Last Filed: unknown) 05/05/22 04:06> (unknown) (no (unknown) (unknown) <Roe Su PA-C - (unit s (unknown) date) Last Filed: 05/04/22 unknown) 20:37> (unknown) (no (unknown) (unknown) <cosigner> (units (unk nown) date) unknown) (unknown) (no (unknown) (unknown) (1-3) #30 tabs (units (unknown) date) unknown) (unknown) (no (unknown) (unknown) (4-6) #30 tabs (units (unknown) date) unknown) (unknown) (no (unknown) (unknown) [id number] (units (unkno wn) date) unknown) (unknown) (no (unknown) (unknown) 1. Left (units (unkno wn) date) intertrochanteric unknown) hip fracture with good alignment. (unknown) (no (unknown) (unknown) 05/04/22 05/04/22 (units (unknown) date) 05/04/22 Range/Units unknown) (unknown) (no (unknown) (unknown) 05/04/22 16:46 (units (unknown) date) unknown) (unknown) (no (unknown) (unknown) 05/04/22 19:32 (units (unknown) date) unknown) (unknown) (no (unknown) (unknown) 05/04/22 19:33 (units (unknown) date) unknown) (unknown) (no (unknown) (unknown) 05/04/222037 (units ( unknown) date) unknown) (unknown) (no (unknown) (unknown) 05/04/22 (units (unkno wn) date) unknown) (unknown) (no (unknown) (unknown) 05/05/22 0406 (units ( unknown) date) unknown) (unknown) (no (unknown) (unknown) 05/05/22 05:00 (units (unknown) date) unknown) (unknown) (no (unknown) (unknown) 05/06/22 05:00 (units (unknown) date) unknown) (unknown) (no (unknown) (unknown) 05/07/22 05:00 (units (unknown) date) unknown) (unknown) (no (unknown) (unknown) 15:42 05/04/22 (units (unknown) date) unknown) (unknown) (no (unknown) (unknown) 16:46 16:46 16:46 (units (unknown) date) unknown) (unknown) (no (unknown) (unknown) 16:46 16:46 17:41 (units (unknown) date) unknown) (unknown) (no (unknown) (unknown) 19:31 (units (unkno wn) date) unknown) (unknown) (no (unknown) (unknown) 2. Fracture of the (units (unknown) date) left ischial unknown) tuberosity with sclerosis.? (unknown) (no (unknown) (unknown) 23:53.? [place] (units (unknown) date) unknown) (unknown) (no (unknown) (unknown) 61-year-old female (units (unknown) date) with a past medical unknown) history of alcohol and tobacco use (unknown) (no (unknown) (unknown) ? (units (unkno wn) date) unknown) (unknown) (no (unknown) (unknown) ALT (<35) IU/L (units (unknown) date) unknown) (unknown) (no (unknown) (unknown) ALT 19 (<35) IU/L (units (unknown) date) unknown) (unknown) (no (unknown) (unknown) AST (14-36) IU/L (units (unknown) date) unknown) (unknown) (no (unknown) (unknown) AST 40 H (14-36) (units (unknown) date) IU/L unknown) (unknown) (no (unknown) (unknown) Acetaminophen (units ( unknown) date) (Acetaminophen 325 unknown) Mg Tablet) 650 mg PO Q6HR PRN (unknown) (no (unknown) (unknown) Admin: 05/04/22 (units (unknown) date) 18:27 Dose: 1,000 unknown) mls/hr (unknown) (no (unknown) (unknown) Admin: 05/04/22 (units (unknown) date) 19:15 Dose: 200 unknown) mls/hr (unknown) (no (unknown) (unknown) Admit Date/Time: (units (unknown) date) 05/04/22 19:33 unknown) (unknown) (no (unknown) (unknown) Admit Provider: (units (unknown) date) Elvia Gtz unknown) (unknown) (no (unknown) (unknown) Age/Sex: 61 / F (units (unknown) date) unknown) (unknown) (no (unknown) (unknown) Albumin (3.5-5.0) (units (unknown) date) g/dL unknown) (unknown) (no (unknown) (unknown) Albumin 3.3 L (units ( unknown) date) (3.5-5.0) g/dL unknown) (unknown) (no (unknown) (unknown) Albumin/Globulin (units (unknown) date) Ratio (1.0-2.8) unknown) (unknown) (no (unknown) (unknown) Albumin/Globulin (units (unknown) date) Ratio 0.9 L unknown) (1.0-2.8) (unknown) (no (unknown) (unknown) Alcohol type: wine (units (unknown) date) unknown) (unknown) (no (unknown) (unknown) Alkaline (units (unkno wn) date) Phosphatase (38-126) unknown) U/L (unknown) (no (unknown) (unknown) Alkaline (units (unkno wn) date) Phosphatase 115 unknown) (38-126) U/L (unknown) (no (unknown) (unknown) Allergic/Immunologi (unit s (unknown) date) c unknown) (unknown) (no (unknown) (unknown) Allergic/Immunologi (unit s (unknown) date) c: Denies urticaria, unknown) Denies throat swelling and Denies (unknown) (no (unknown) (unknown) Allergies (units (unkn own) date) unknown) (unknown) (no (unknown) (unknown) Allergy/AdvReac (units (unknown) date) Type Severity unknown) Reaction Status Date / Time (unknown) (no (unknown) (unknown) Amorphous Sediment (units (unknown) date) 1 unknown) (unknown) (no (unknown) (unknown) Amorphous Sediment (units (unknown) date) unknown) (unknown) (no (unknown) (unknown) Approved by: Steven (unit s (unknown) date) Polly Quiroz on unknown) 05/04/2022 at 18:22 ? (unknown) (no (unknown) (unknown) Approved by: Steven (unit s (unknown) date) Polly Quiroz on unknown) 05/04/2022 at 18:26 ? (unknown) (no (unknown) (unknown) Auscultation:?clear (unit s (unknown) date) to auscultation unknown) bilaterally (unknown) (no (unknown) (unknown) BUN (7-17) mg/dL (units (unknown) date) unknown) (unknown) (no (unknown) (unknown) BUN 4 L (7-17) (units (unknown) date) mg/dL unknown) (unknown) (no (unknown) (unknown) BUN/Creatinine (units (unknown) date) Ratio (6-22) unknown) (unknown) (no (unknown) (unknown) BUN/Creatinine (units (unknown) date) Ratio 16.0 (6-22) unknown) (unknown) (no (unknown) (unknown) Baso # (Auto) (units ( unknown) date) (0-100) /uL unknown) (unknown) (no (unknown) (unknown) Baso # (Auto) 100 (units (unknown) date) (0-100) /uL unknown) (unknown) (no (unknown) (unknown) Baso % (Auto) (0-2) (unit s (unknown) date) % unknown) (unknown) (no (unknown) (unknown) Baso % (Auto) 0.6 (units (unknown) date) (0-2) % unknown) (unknown) (no (unknown) (unknown) Bisacodyl (units (unkn own) date) (Bisacodyl 5 Mg unknown) Tablet) 10 mg PO DAILY PRN (unknown) (no (unknown) (unknown) Blood Pressure (units (unknown) date) 120/69 05/04/22 unknown) 15:42 (unknown) (no (unknown) (unknown) Blood Pressure (units (unknown) date) 120/69 155/84 H unknown) (unknown) (no (unknown) (unknown) Bones and chest (units (unknown) date) wall:? No suspicious unknown) bony lesions.? Overlying soft tissues (unknown) (no (unknown) (unknown) Bones:? Patient is (units (unknown) date) status post left hip unknown) arthroplasty, with hardware components (unknown) (no (unknown) (unknown) Both surgical (units ( unknown) date) incisions appear to unknown) be healing without overt signs of infection (unknown) (no (unknown) (unknown) CK-MB (CK-2) Rel (units (unknown) date) Index TNP unknown) (unknown) (no (unknown) (unknown) CK-MB (CK-2) Rel (units (unknown) date) Index unknown) (unknown) (no (unknown) (unknown) CK-MB (CK-2) TNP (units (unknown) date) unknown) (unknown) (no (unknown) (unknown) CK-MB (CK-2) (units (u nknown) date) unknown) (unknown) (no (unknown) (unknown) COMPARISON:? [facility], CR, XR unknown) CHEST 1V, 04/29/2022, 23:53. (unknown) (no (unknown) (unknown) COMPARISON:? [facility], CR, XR HIP unknown) W PEL IF DONE LT 2V, 04/29/2022, (unknown) (no (unknown) (unknown) Calcium (8.4-10.2) (units (unknown) date) mg/dL unknown) (unknown) (no (unknown) (unknown) Calcium 8.6 (units (un known) date) (8.4-10.2) mg/dL unknown) (unknown) (no (unknown) (unknown) Carbon Dioxide (units (unknown) date) (22-32) mmol/L unknown) (unknown) (no (unknown) (unknown) Carbon Dioxide 24 (units (unknown) date) (22-32) mmol/L unknown) (unknown) (no (unknown) (unknown) Cardio (units (unkno wn) date) unknown) (unknown) (no (unknown) (unknown) Cardiovascular (units (unknown) date) unknown) (unknown) (no (unknown) (unknown) Cardiovascular: (units (unknown) date) Denies chest pain, unknown) Denies irregular heart rhythm, Denies (unknown) (no (unknown) (unknown) Cefepime HCl 1 gm/ (units (unknown) date) Sodium (Chloride) unknown) 100 mls @ 200 mls/hr IV Q12H ALFREDA (unknown) (no (unknown) (unknown) Ceftriaxone Sodium (units (unknown) date) 1,000 mg/ (Sodium unknown) Chloride) 100 mls @ 200 mls/hr IV NOW ONE (unknown) (no (unknown) (unknown) Chest x-ray: (units (u nknown) date) unknown) (unknown) (no (unknown) (unknown) Chief Complaint: (units (unknown) date) Extremity Injury, unknown) Lower (unknown) (no (unknown) (unknown) Chloride (98-107) (units (unknown) date) mmol/L unknown) (unknown) (no (unknown) (unknown) Chloride 95 L (units ( unknown) date) (98-107) mmol/L unknown) (unknown) (no (unknown) (unknown) Clinical (units (unkno wn) date) Impression: unknown) (unknown) (no (unknown) (unknown) Comments: (units (unkn own) date) unknown) (unknown) (no (unknown) (unknown) Complete Blood (units (unknown) date) Count AUTO DIFF unknown) DAILY (unknown) (no (unknown) (unknown) Comprehensive (units ( unknown) date) Metabolic Panel unknown) DAILY (unknown) (no (unknown) (unknown) Const (units (unkno wn) date) unknown) (unknown) (no (unknown) (unknown) Constitutional (units (unknown) date) unknown) (unknown) (no (unknown) (unknown) Constitutional: (units (unknown) date) Denies chills, unknown) Denies fatigue, Denies fever(s), Denies frequent (unknown) (no (unknown) (unknown) Consult to (units (unk nown) date) Dietitian, Adult unknown) Stat (unknown) (no (unknown) (unknown) Consult to Pastoral (unit s (unknown) date) Services Stat unknown) (unknown) (no (unknown) (unknown) Consult to Physical (unit s (unknown) date) Therapy Evaluate + unknown) Treat (unknown) (no (unknown) (unknown) Cosign (units (unkno wn) date) unknown) (unknown) (no (unknown) (unknown) Course (units (unkno wn) date) unknown) (unknown) (no (unknown) (unknown) Creatinine (units (unk nown) date) (0.52-1.04) mg/dL unknown) (unknown) (no (unknown) (unknown) Creatinine 0.25 L (units (unknown) date) (0.52-1.04) mg/dL unknown) (unknown) (no (unknown) (unknown) : 1960 (units (unknown) date) Acct:[id number] unknown) (unknown) (no (unknown) (unknown) Date of Service: (units (unknown) date) 05/04/22 unknown) (unknown) (no (unknown) (unknown) Denies frequent (units (unknown) date) falls, Denies loss unknown) of vision, Denies numbness, Denies tingling (unknown) (no (unknown) (unknown) Denies loss of (units (unknown) date) vision unknown) (unknown) (no (unknown) (unknown) Denies numbness and (unit s (unknown) date) Denies tingling unknown) (unknown) (no (unknown) (unknown) Departure (units (unkn own) date) unknown) (unknown) (no (unknown) (unknown) Dictated by: Steven (unit s (unknown) date) Polly Quiroz on unknown) 05/04/2022 at 18:20 ? ? (unknown) (no (unknown) (unknown) Dictated by: Steven (unit s (unknown) date) Polly Quiroz on unknown) 05/04/2022 at 18:23 ? ? (unknown) (no (unknown) (unknown) Discharge Plan (units (unknown) date) unknown) (unknown) (no (unknown) (unknown) Discontinued (units (u nknown) date) Medications unknown) (unknown) (no (unknown) (unknown) Documented By: [facility] (units (unknown) date) unknown) (unknown) (no (unknown) (unknown) Documented By: [facility] (units (unknown) date) unknown) (unknown) (no (unknown) (unknown) Docusate Sodium (units (unknown) date) (Docusate 100 Mg unknown) Capsule) 100 mg PO BID ALFREDA (unknown) (no (unknown) (unknown) ED Attending (units (u nknown) date) Cosignature unknown) Attestation: (unknown) (no (unknown) (unknown) ED Orders (units (unkn own) date) unknown) (unknown) (no (unknown) (unknown) ENT (units (unkno wn) date) unknown) (unknown) (no (unknown) (unknown) ER Physician: (units ( unknown) date) Georges,Hyma P.A-C unknown) (unknown) (no (unknown) (unknown) Ears, Nose, Mouth, (units (unknown) date) and Throat: Denies unknown) change in voice, Denies dizziness, Denies (unknown) (no (unknown) (unknown) Ears:?hearing (units ( unknown) date) grossly normal unknown) bilaterally (unknown) (no (unknown) (unknown) Effort + (units (unkno wn) date) Inspection:?normal unknown) respiratory effort (unknown) (no (unknown) (unknown) Emergency Report (units (unknown) date) unknown) (unknown) (no (unknown) (unknown) Endocrine (units (unkn own) date) unknown) (unknown) (no (unknown) (unknown) Endocrine: Denies (units (unknown) date) fatigue, Denies unknown) flushing and Denies palpitations (unknown) (no (unknown) (unknown) Enoxaparin Sodium (units (unknown) date) (Enoxaparin 40 unknown) Mg/0.4 Ml Syringe) 40 mg SUBCUT DAILY ALFREDA (unknown) (no (unknown) (unknown) Eos # (Auto) (units (u nknown) date) (0-450) /uL unknown) (unknown) (no (unknown) (unknown) Eos # (Auto) 100 (units (unknown) date) (0-450) /uL unknown) (unknown) (no (unknown) (unknown) Eos % (Auto) (2-4) (units (unknown) date) % unknown) (unknown) (no (unknown) (unknown) Eos % (Auto) 0.4 L (units (unknown) date) (2-4) % unknown) (unknown) (no (unknown) (unknown) Estimated GFR > 60 (units (unknown) date) (>60) mL/min unknown) (unknown) (no (unknown) (unknown) Estimated GFR (>60) (unit s (unknown) date) mL/min unknown) (unknown) (no (unknown) (unknown) Exam Narrative: (units (unknown) date) unknown) (unknown) (no (unknown) (unknown) Exam (units (unkno wn) date) unknown) (unknown) (no (unknown) (unknown) Eyes (units (unkno wn) date) unknown) (unknown) (no (unknown) (unknown) Eyes: Denies change (unit s (unknown) date) in vision, Denies unknown) eye discharge, Denies irritation and (unknown) (no (unknown) (unknown) FINDINGS:? (units (unk nown) date) unknown) (unknown) (no (unknown) (unknown) Face and (units (unkno wn) date) sinus:?normal facial unknown) exam and sinuses nontender (unknown) (no (unknown) (unknown) Folic Acid (Folic (units (unknown) date) Acid 1 Mg Tablet) 1 unknown) mg PO DAILY ALFREDA (unknown) (no (unknown) (unknown) Gastrointestinal (units (unknown) date) unknown) (unknown) (no (unknown) (unknown) Gastrointestinal: (units (unknown) date) Denies abdominal unknown) pain, Denies change in bowel habits, Denies (unknown) (no (unknown) (unknown) General (units (unkno wn) date) unknown) (unknown) (no (unknown) (unknown) General:?appearance (unit s (unknown) date) normal, both eyes unknown) and all related structures (unknown) (no (unknown) (unknown) General:?cooperativ (unit s (unknown) date) e, healthy appearing unknown) and comfortable (unknown) (no (unknown) (unknown) General:?patient (units (unknown) date) alert, patient awake unknown) and patient oriented x3 (unknown) (no (unknown) (unknown) Genitourinary (units ( unknown) date) unknown) (unknown) (no (unknown) (unknown) Genitourinary: (units (unknown) date) Denies hematuria, unknown) Denies flank pain, Denies urinary incontinence (unknown) (no (unknown) (unknown) Globulin (1.7-4.1) (units (unknown) date) g/dL unknown) (unknown) (no (unknown) (unknown) Globulin 3.6 (units (u nknown) date) (1.7-4.1) g/dL unknown) (unknown) (no (unknown) (unknown) Glucose (80-110) (units (unknown) date) mg/dL unknown) (unknown) (no (unknown) (unknown) Glucose 86 (80-110) (unit s (unknown) date) mg/dL unknown) (unknown) (no (unknown) (unknown) HENMT (units (unkno wn) date) unknown) (unknown) (no (unknown) (unknown) HPI - Extremity (units (unknown) date) Injury (Lower) unknown) (unknown) (no (unknown) (unknown) HPI Narrative: (units (unknown) date) unknown) (unknown) (no (unknown) (unknown) Hct (36-46) % (units ( unknown) date) unknown) (unknown) (no (unknown) (unknown) Hct 28.8 L (36-46) (units (unknown) date) % unknown) (unknown) (no (unknown) (unknown) Head:?normal to (units (unknown) date) inspection unknown) (unknown) (no (unknown) (unknown) Hematologic/Lymphat (unit s (unknown) date) ic unknown) (unknown) (no (unknown) (unknown) Hematologic/Lymphat (unit s (unknown) date) ic: Denies easy unknown) bruising (unknown) (no (unknown) (unknown) Hgb (12.0-16.0) (units (unknown) date) g/dL unknown) (unknown) (no (unknown) (unknown) Hgb 9.9 L (units (unkn own) date) (12.0-16.0) g/dL unknown) (unknown) (no (unknown) (unknown) Hip pain (units (unkno wn) date) unknown) (unknown) (no (unknown) (unknown) History of Present (units (unknown) date) Illness unknown) (unknown) (no (unknown) (unknown) Hospital, CR, XR (units (unknown) date) HIP W PEL IF DONE LT unknown) 2V, 04/30/2022, 15:29. (unknown) (no (unknown) (unknown) Hydrocodone (units (un known) date) Bitart/Acetaminophen unknown) (Hydrocodone/Acet 10/325 Tablet) 1 tab PO Q4HR (unknown) (no (unknown) (unknown) Hydromorphone HCl (units (unknown) date) (Hydromorphone 1 Mg unknown) Inj) 1 mg IV NOW ONE (unknown) (no (unknown) (unknown) I did see and (units ( unknown) date) evaluate patient's unknown) left hip. It does appear to be postoperative (unknown) (no (unknown) (unknown) I was immediately (units (unknown) date) available in the unknown) department for consultation. Documentation (unknown) (no (unknown) (unknown) IMPRESSION:? No (units (unknown) date) acute unknown) cardiopulmonary abnormality. (unknown) (no (unknown) (unknown) IMPRESSION:? (units (u nknown) date) unknown) (unknown) (no (unknown) (unknown) INDICATIONS:? Flu (units (unknown) date) like symptoms unknown) (unknown) (no (unknown) (unknown) INDICATIONS:? sp (units (unknown) date) hip replacement unknown) after fall, gen weakness, increased WBC (unknown) (no (unknown) (unknown) IV fluids. (units (unk nown) date) Hospitalist unknown) [facility]ma[facility] consulted for admission until patient can be (unknown) (no (unknown) (unknown) Imaging Data (units (u nknown) date) unknown) (unknown) (no (unknown) (unknown) Initial Vital Signs (unit s (unknown) date) unknown) (unknown) (no (unknown) (unknown) Initial Vital (units ( unknown) date) Signs: unknown) (unknown) (no (unknown) (unknown) Integumentary (units ( unknown) date) unknown) (unknown) (no (unknown) (unknown) Integumentary/Breas (unit s (unknown) date) ts unknown) (unknown) (no (unknown) (unknown) [facility] (units (unknown) date) [address] unknown) [place] [address] (unknown) (no (unknown) (unknown) Lab Data (units (unkno wn) date) unknown) (unknown) (no (unknown) (unknown) Lab Results (units (un known) date) unknown) (unknown) (no (unknown) (unknown) Labs: (units (unkno wn) date) unknown) (unknown) (no (unknown) (unknown) Lactate (0.7-2.1) (units (unknown) date) mmol/L unknown) (unknown) (no (unknown) (unknown) Lactate 1.8 (units (un known) date) (0.7-2.1) mmol/L unknown) (unknown) (no (unknown) (unknown) Last Admin: (units (un known) date) 05/04/22 19:03 Dose: unknown) 1 mg (unknown) (no (unknown) (unknown) Last Admin: (units (un known) date) 05/04/22 19:03 Dose: unknown) 4 mg (unknown) (no (unknown) (unknown) Last Admin: (units (un known) date) 05/04/22 21:35 Dose: unknown) 100 mls/hr (unknown) (no (unknown) (unknown) Last Admin: (units (un known) date) 05/04/22 21:43 Dose: unknown) 100 mg (unknown) (no (unknown) (unknown) Last Admin: (units (un known) date) 05/04/22 21:43 Dose: unknown) 6 mg (unknown) (no (unknown) (unknown) Last Admin: (units (un known) date) 05/04/22 22:25 Dose: unknown) 1 tab (unknown) (no (unknown) (unknown) Last Admin: (units (un known) date) 05/04/22 22:27 Dose: unknown) Not Given (unknown) (no (unknown) (unknown) Last Infusion: (units (unknown) date) 05/04/22 20:36 Dose: unknown) 0 mls/hr (unknown) (no (unknown) (unknown) Last Infusion: (units (unknown) date) 05/04/22 20:37 Dose: unknown) 0 mls/hr (unknown) (no (unknown) (unknown) Lorazepam (units (unkn own) date) (Lorazepam 1 Mg unknown) Tablet) 0 mg PO CIWAPRN PRN; Protocol (unknown) (no (unknown) (unknown) Lungs and pleura:? (units (unknown) date) Lungs are clear.? No unknown) pleural effusions or pneumothorax.? (unknown) (no (unknown) (unknown) Lymph # (Auto) (units (unknown) date) (3135-5513) /uL unknown) (unknown) (no (unknown) (unknown) Lymph # (Auto) 2200 (unit s (unknown) date) (4573-1918) /uL unknown) (unknown) (no (unknown) (unknown) Lymph % (Auto) (units (unknown) date) (25-40) % unknown) (unknown) (no (unknown) (unknown) Lymph % (Auto) 15.3 (unit s (unknown) date) L (25-40) % unknown) (unknown) (no (unknown) (unknown) MCH (26-34) PG (units (unknown) date) unknown) (unknown) (no (unknown) (unknown) MCH 35.6 H (26-34) (units (unknown) date) PG unknown) (unknown) (no (unknown) (unknown) MCHC (30-36) % (units (unknown) date) unknown) (unknown) (no (unknown) (unknown) MCHC 34.4 (30-36) % (unit s (unknown) date) unknown) (unknown) (no (unknown) (unknown) MCV (80-100) fL (units (unknown) date) unknown) (unknown) (no (unknown) (unknown) MCV 103.5 H (units (un known) date) (80-100) fL unknown) (unknown) (no (unknown) (unknown) MDM - Extremity (units (unknown) date) Injury (Lower) unknown) (unknown) (no (unknown) (unknown) MDM Narrative (units ( unknown) date) unknown) (unknown) (no (unknown) (unknown) Magnesium DAILY (units (unknown) date) unknown) (unknown) (no (unknown) (unknown) Mediastinum:? (units ( unknown) date) Mediastinal contours unknown) appear normal.? Heart size is normal.? (unknown) (no (unknown) (unknown) Medical decision (units (unknown) date) making narrative: unknown) (unknown) (no (unknown) (unknown) Medication (units (unk nown) date) Instructions unknown) Recorded (unknown) (no (unknown) (unknown) Melatonin (units (unkn own) date) (Melatonin 3 Mg unknown) Tablet) 6 mg PO BEDTIME ALFREDA (unknown) (no (unknown) (unknown) Mode of arrival: (units (unknown) date) EMS unknown) (unknown) (no (unknown) (unknown) [place] # (Auto) (units ( unknown) date) (0-900) /uL unknown) (unknown) (no (unknown) (unknown) [place] # (Auto) 1200 (units (unknown) date) H (0-900) /uL unknown) (unknown) (no (unknown) (unknown) [place] % (Auto) (units ( unknown) date) (3-14) % unknown) (unknown) (no (unknown) (unknown) [place] % (Auto) 8.1 (units (unknown) date) (3-14) % unknown) (unknown) (no (unknown) (unknown) Mouth:?oral mucosae (unit s (unknown) date) normal unknown) (unknown) (no (unknown) (unknown) Multivitamins (units ( unknown) date) (Multivitamin 1 unknown) Tablet) 1 tab PO DAILY ALFREDA (unknown) (no (unknown) (unknown) Musculoskeletal (units (unknown) date) unknown) (unknown) (no (unknown) (unknown) Musculoskeletal: (units (unknown) date) Denies back pain, unknown) Denies muscle weakness, Denies neck pain, (unknown) (no (unknown) (unknown) Narrative (units (unkn own) date) unknown) (unknown) (no (unknown) (unknown) Neck (units (unkno wn) date) unknown) (unknown) (no (unknown) (unknown) Neck:?normal visual (unit s (unknown) date) inspection and no unknown) lymphadenopathy noted (unknown) (no (unknown) (unknown) Neuro (units (unkno wn) date) unknown) (unknown) (no (unknown) (unknown) Neurologic (units (unk nown) date) unknown) (unknown) (no (unknown) (unknown) Neurologic: Denies (units (unknown) date) behavioral changes, unknown) Denies confusion, Denies dizziness, (unknown) (no (unknown) (unknown) Neut # (Auto) (units ( unknown) date) (2808-6384) /uL unknown) (unknown) (no (unknown) (unknown) Neut # (Auto) 69628 (unit s (unknown) date) H (2650-4518) /uL unknown) (unknown) (no (unknown) (unknown) Neut % (Auto) (units ( unknown) date) (50-75) % unknown) (unknown) (no (unknown) (unknown) Neut % (Auto) 75.6 (units (unknown) date) H (50-75) % unknown) (unknown) (no (unknown) (unknown) Nicotine (Nicotine (units (unknown) date) 14 Patch) 14 mg TOP unknown) DAILY ALFREDA (unknown) (no (unknown) (unknown) Nose:?external nose (unit s (unknown) date) normal unknown) (unknown) (no (unknown) (unknown) Ondansetron HCl (units (unknown) date) (Ondansetron 4 Mg unknown) Odt) 4 mg PO Q6H PRN (unknown) (no (unknown) (unknown) Ondansetron HCl (units (unknown) date) (Ondansetron 4 Mg/2 unknown) Ml Inj) 4 mg IV NOW ONE (unknown) (no (unknown) (unknown) Ordered: (units (unkno wn) date) unknown) (unknown) (no (unknown) (unknown) Orders (units (unkno wn) date) unknown) (unknown) (no (unknown) (unknown) Oxycodone HCl (units ( unknown) date) (Oxycodone Ir 5 Mg unknown) Tablet) 5 mg PO Q4HR PRN (unknown) (no (unknown) (unknown) Oxygen Delivery (units (unknown) date) Method 05/04/22 unknown) 15:42 (unknown) (no (unknown) (unknown) Oxygen Delivery (units (unknown) date) Method Room Air Room unknown) Air (unknown) (no (unknown) (unknown) PRN Reason: Alcohol (unit s (unknown) date) Withdrawal unknown) (unknown) (no (unknown) (unknown) PRN Reason: (units (un known) date) Constipation unknown) (unknown) (no (unknown) (unknown) PRN Reason: (units (un known) date) Fever/Mild Pain unknown) (1-3) (unknown) (no (unknown) (unknown) PRN Reason: Nausea (units (unknown) date) And Vomiting unknown) (unknown) (no (unknown) (unknown) PRN Reason: Pain, (units (unknown) date) Moderate (4-6) unknown) (unknown) (no (unknown) (unknown) PRN Reason: pain (units (unknown) date) 4-10 unknown) (unknown) (no (unknown) (unknown) PRN (units (unkno wn) date) unknown) (unknown) (no (unknown) (unknown) PROCEDURE:? XR (units (unknown) date) CHEST 1V unknown) (unknown) (no (unknown) (unknown) PROCEDURE:? XR (units (unknown) date) PELVIS 1-2V unknown) (unknown) (no (unknown) (unknown) Patient (units (unkno wn) date) Disposition: unknown) Admitted as Observation (unknown) (no (unknown) (unknown) Patient History (units (unknown) date) unknown) (unknown) (no (unknown) (unknown) Patient: (units (unkno wn) date) Nichol Meng unknown) MR#: [id number] (unknown) (no (unknown) (unknown) Pelvic Xray: (units (u nknown) date) unknown) (unknown) (no (unknown) (unknown) Penicillins (units (un known) date) [PENICILLINS] unknown) AdvReac Intermediate rash Verified 05/04/22 16:59 (unknown) (no (unknown) (unknown) Plt Count (150-400) (unit s (unknown) date) X103/uL unknown) (unknown) (no (unknown) (unknown) Plt Count 407 H (units (unknown) date) (150-400) X103/uL unknown) (unknown) (no (unknown) (unknown) Polyethylene Glycol (unit s (unknown) date) (Polyethylene Glycol unknown) 3350 17 Gm Powd.Pack) 17 gm PO DAILY (unknown) (no (unknown) (unknown) Potassium (3.4-5.1) (unit s (unknown) date) mmol/L unknown) (unknown) (no (unknown) (unknown) Potassium 4.0 (units ( unknown) date) (3.4-5.1) mmol/L unknown) (unknown) (no (unknown) (unknown) Previous Rx's (units ( unknown) date) unknown) (unknown) (no (unknown) (unknown) Procalcitonin (units ( unknown) date) (<0.5) ng/mL unknown) (unknown) (no (unknown) (unknown) Procalcitonin 1.56 (units (unknown) date) H (<0.5) ng/mL unknown) (unknown) (no (unknown) (unknown) Psychiatric (units (un known) date) unknown) (unknown) (no (unknown) (unknown) Psychiatric: Denies (units (unknown) date) anxiety, Denies unknown) behavioral changes, Denies confusion, Denies (unknown) (no (unknown) (unknown) Pulse Oximetry 99 (units (unknown) date) 05/04/22 15:42 unknown) (unknown) (no (unknown) (unknown) Pulse Oximetry 99 (units (unknown) date) 98 unknown) (unknown) (no (unknown) (unknown) Pulse Rate 95 H (units (unknown) date) 05/04/22 15:42 unknown) (unknown) (no (unknown) (unknown) Pulse Rate 95 H 109 (unit s (unknown) date) H unknown) (unknown) (no (unknown) (unknown) RBC (4.0-5.2) (units ( unknown) date) X106/uL unknown) (unknown) (no (unknown) (unknown) RBC 2.79 L (units (unk nown) date) (4.0-5.2) X106/uL unknown) (unknown) (no (unknown) (unknown) RDW (11.6-14.8) % (units (unknown) date) unknown) (unknown) (no (unknown) (unknown) RDW 13.3 (units (unkno wn) date) (11.6-14.8) % unknown) (unknown) (no (unknown) (unknown) ROS Unobtainable: (units (unknown) date) All systems reviewed unknown) + are unremarkable except as noted in HPI (unknown) (no (unknown) (unknown) Radiologist's (units ( unknown) date) Impression: unknown) (unknown) (no (unknown) (unknown) Rate:?regular rate (units (unknown) date) unknown) (unknown) (no (unknown) (unknown) Related Data (units (u nknown) date) unknown) (unknown) (no (unknown) (unknown) Resp (units (unkno wn) date) unknown) (unknown) (no (unknown) (unknown) Respiratory Rate 17 (unit s (unknown) date) 10 L unknown) (unknown) (no (unknown) (unknown) Respiratory Rate 17 (unit s (unknown) date) 05/04/22 15:42 unknown) (unknown) (no (unknown) (unknown) Respiratory (units (un known) date) unknown) (unknown) (no (unknown) (unknown) Respiratory: Denies (units (unknown) date) cough, Denies unknown) dyspnea, Denies dyspnea on exertion and Denies (unknown) (no (unknown) (unknown) Result diagrams: (units (unknown) date) unknown) (unknown) (no (unknown) (unknown) Review of Systems (units (unknown) date) unknown) (unknown) (no (unknown) (unknown) Rhythm:?regular (units (unknown) date) rhythm unknown) (unknown) (no (unknown) (unknown) SARS-CoV-2 (PCR) (units (unknown) date) (Negative) unknown) (unknown) (no (unknown) (unknown) SARS-CoV-2 (PCR) (units (unknown) date) Negative (Negative) unknown) (unknown) (no (unknown) (unknown) Sennosides (units (unk nown) date) (Sennosides 8.6 Mg unknown) Tablet) 8.6 mg PO BID PRN (unknown) (no (unknown) (unknown) Signed By: (units (unk nown) date) unknown) (unknown) (no (unknown) (unknown) Skin/Breast: Denies (unit s (unknown) date) pruritus, Denies unknown) erythema, Denies rash and Denies wounds (unknown) (no (unknown) (unknown) Smoking Status: (units (unknown) date) Current every day unknown) smoker (unknown) (no (unknown) (unknown) Social History (units (unknown) date) (Reviewed 05/04/22 @ unknown) 19:33 by Roe Su PA-C) (unknown) (no (unknown) (unknown) Sodium (137-145) (units (unknown) date) mmol/L unknown) (unknown) (no (unknown) (unknown) Sodium 129 L (units (u nknown) date) (137-145) mmol/L unknown) (unknown) (no (unknown) (unknown) Sodium Chloride (units (unknown) date) (Normal Saline 0.9%) unknown) 1,000 mls @ 1,000 mls/hr IV BOLUS ONE (unknown) (no (unknown) (unknown) Sodium Chloride (units (unknown) date) (Normal Saline 0.9%) unknown) 1,000 mls @ 100 mls/hr IV CONT ALFREDA (unknown) (no (unknown) (unknown) Soft tissues:? (units (unknown) date) Overlying unknown) postoperative changes are noted.? No suspicious soft (unknown) (no (unknown) (unknown) Source: EMS (units (un known) date) unknown) (unknown) (no (unknown) (unknown) Stated Complaint: (units (unknown) date) Hip pain unknown) (unknown) (no (unknown) (unknown) Status post (units (un known) date) appendectomy unknown) (unknown) (no (unknown) (unknown) Status post breast (units (unknown) date) lumpectomy unknown) (unknown) (no (unknown) (unknown) Status post (units (un known) date) hysterectomy unknown) (unknown) (no (unknown) (unknown) Stop: 05/04/22 (units (unknown) date) 18:51 unknown) (unknown) (no (unknown) (unknown) Stop: 05/04/22 (units (unknown) date) 19:03 unknown) (unknown) (no (unknown) (unknown) Stop: 05/04/22 (units (unknown) date) 19:20 unknown) (unknown) (no (unknown) (unknown) Substance Use Type: (unit s (unknown) date) does not use unknown) (unknown) (no (unknown) (unknown) Surgical History (units (unknown) date) (Reviewed 05/04/22 @ unknown) 19:33 by Roe Su PA-C) (unknown) (no (unknown) (unknown) Surgical changes (units (unknown) date) and devices:? None.? unknown) (unknown) (no (unknown) (unknown) TECHNIQUE:? 1 view (units (unknown) date) of the lower pelvis unknown) acquired.? (unknown) (no (unknown) (unknown) TECHNIQUE:? One (units (unknown) date) view of the chest unknown) was acquired.? (unknown) (no (unknown) (unknown) Temperature 98 F (units (unknown) date) 05/04/22 15:42 unknown) (unknown) (no (unknown) (unknown) Temperature 98 F (units (unknown) date) unknown) (unknown) (no (unknown) (unknown) Thiamine HCl (units (u nknown) date) (Thiamine 100 Mg unknown) Tablet) 100 mg PO DAILY ALFREDA (unknown) (no (unknown) (unknown) Throat:?posterior (units (unknown) date) oropharynx normal unknown) (unknown) (no (unknown) (unknown) Time Seen by (units (u nknown) date) Provider: 05/04/22 unknown) 17:23 (unknown) (no (unknown) (unknown) Total Bilirubin (units (unknown) date) (0.2-1.3) mg/dL unknown) (unknown) (no (unknown) (unknown) Total Bilirubin 0.8 (unit s (unknown) date) (0.2-1.3) mg/dL unknown) (unknown) (no (unknown) (unknown) Total Creatine (units (unknown) date) Kinase (30-135) U/L unknown) (unknown) (no (unknown) (unknown) Total Creatine (units (unknown) date) Kinase 64 (30-135) unknown) U/L (unknown) (no (unknown) (unknown) Total Protein (units ( unknown) date) (6.3-8.2) g/dL unknown) (unknown) (no (unknown) (unknown) Total Protein 6.9 (units (unknown) date) (6.3-8.2) g/dL unknown) (unknown) (no (unknown) (unknown) Troponin I < 0.012 (units (unknown) date) (0.01-0.034) ng/mL unknown) (unknown) (no (unknown) (unknown) Troponin I (units (unk nown) date) (0.01-0.034) ng/mL unknown) (unknown) (no (unknown) (unknown) UTI (urinary tract (units (unknown) date) infection), unknown) Protein-calorie malnutrition, severe (unknown) (no (unknown) (unknown) UTI. He is not (units (unknown) date) hypotensive does not unknown) meet severe sepsis criteria (unknown) (no (unknown) (unknown) Ur Culture (units (unk nown) date) Indicated? Specimen unknown) cultured (unknown) (no (unknown) (unknown) Ur Culture (units (unk nown) date) Indicated? unknown) (unknown) (no (unknown) (unknown) Ur Leukocyte (units (u nknown) date) Esterase (NEGATIVE) unknown) (unknown) (no (unknown) (unknown) Ur Leukocyte (units (u nknown) date) Esterase 1+ H unknown) (NEGATIVE) (unknown) (no (unknown) (unknown) Ur Specific [place] (unit s (unknown) date) <=1.005 unknown) (1.000-1.035) (unknown) (no (unknown) (unknown) Ur Specific [place] (unit s (unknown) date) (1.000-1.035) unknown) (unknown) (no (unknown) (unknown) Ur Squamous Epith (units (unknown) date) Cells (0-5/HPF) unknown) (unknown) (no (unknown) (unknown) Ur Squamous Epith (units (unknown) date) Cells 0-1 /hpf unknown) (0-5/HPF) (unknown) (no (unknown) (unknown) Urine Appearance (units (unknown) date) Clear unknown) (unknown) (no (unknown) (unknown) Urine Appearance (units (unknown) date) unknown) (unknown) (no (unknown) (unknown) Urine Bacteria (units (unknown) date) (None) unknown) (unknown) (no (unknown) (unknown) Urine Bacteria Few (units (unknown) date) (2-10) H (None) unknown) (unknown) (no (unknown) (unknown) Urine Bilirubin (units (unknown) date) (NEGATIVE) unknown) (unknown) (no (unknown) (unknown) Urine Bilirubin (units (unknown) date) Negative (NEGATIVE) unknown) (unknown) (no (unknown) (unknown) Urine Color Yellow (units (unknown) date) unknown) (unknown) (no (unknown) (unknown) Urine Color (units (un known) date) unknown) (unknown) (no (unknown) (unknown) Urine Glucose (UA) (units (unknown) date) (Negative) g/dL unknown) (unknown) (no (unknown) (unknown) Urine Glucose (UA) (units (unknown) date) Negative (Negative) unknown) g/dL (unknown) (no (unknown) (unknown) Urine Ketones (units ( unknown) date) (NEGATIVE) unknown) (unknown) (no (unknown) (unknown) Urine Ketones (units ( unknown) date) Negative (NEGATIVE) unknown) (unknown) (no (unknown) (unknown) Urine Nitrate (units ( unknown) date) (Negative) unknown) (unknown) (no (unknown) (unknown) Urine Nitrate (units ( unknown) date) Negative (Negative) unknown) (unknown) (no (unknown) (unknown) Urine Occult Blood (units (unknown) date) (Negative) unknown) (unknown) (no (unknown) (unknown) Urine Occult Blood (units (unknown) date) 1+ H (Negative) unknown) (unknown) (no (unknown) (unknown) Urine Protein (units ( unknown) date) (Negative) unknown) (unknown) (no (unknown) (unknown) Urine Protein (units ( unknown) date) Negative (Negative) unknown) (unknown) (no (unknown) (unknown) Urine RBC (0-5/HPF) (unit s (unknown) date) unknown) (unknown) (no (unknown) (unknown) Urine RBC 0-1/hpf (units (unknown) date) (0-5/HPF) unknown) (unknown) (no (unknown) (unknown) Urine Urobilinogen (units (unknown) date) (0.2) E.U./dL unknown) (unknown) (no (unknown) (unknown) Urine Urobilinogen (units (unknown) date) 0.2 (0.2) E.U./dL unknown) (unknown) (no (unknown) (unknown) Urine WBC (0-5/HPF) (unit s (unknown) date) unknown) (unknown) (no (unknown) (unknown) Urine WBC 1-5/hpf (units (unknown) date) (0-5/HPF) unknown) (unknown) (no (unknown) (unknown) Urine pH (4.5-8.0) (units (unknown) date) unknown) (unknown) (no (unknown) (unknown) Urine pH 7.0 (units (u nknown) date) (4.5-8.0) unknown) (unknown) (no (unknown) (unknown) Vital Signs - 8 hr (units (unknown) date) unknown) (unknown) (no (unknown) (unknown) Vital Signs (units (un known) date) unknown) (unknown) (no (unknown) (unknown) Vital signs: (units (u nknown) date) unknown) (unknown) (no (unknown) (unknown) WBC (4.5-11.0) (units (unknown) date) X103/uL unknown) (unknown) (no (unknown) (unknown) WBC 14.1 H (units (unk nown) date) (4.5-11.0) X103/uL unknown) (unknown) (no (unknown) (unknown) Will treat pain (units (unknown) date) with Dilaudid, unknown) Zofran. Will start Rocephin 1 g IV. Will give (unknown) (no (unknown) (unknown) [Embedded Image Not (unit s (unknown) date) Available] unknown) (unknown) (no (unknown) (unknown) acetaminophen 325 (units (unknown) date) mg tablet 650 mg PO unknown) Q6HR PRN Fever/Mild Pain 05/02/22 (unknown) (no (unknown) (unknown) again, especially (units (unknown) date) given her alcohol unknown) use. Patient's pain appears to be poorly (unknown) (no (unknown) (unknown) alcohol intake (units (unknown) date) frequency: 3 or more unknown) drinks per day (unknown) (no (unknown) (unknown) alcohol intake: (units (unknown) date) current unknown) (unknown) (no (unknown) (unknown) and Denies (units (unk nown) date) orthopnea unknown) (unknown) (no (unknown) (unknown) and Denies urinary (units (unknown) date) urgency unknown) (unknown) (no (unknown) (unknown) and Denies weakness (unit s (unknown) date) unknown) (unknown) (no (unknown) (unknown) and below (units (unkn own) date) unknown) (unknown) (no (unknown) (unknown) appear (units (unkno wn) date) unknown) (unknown) (no (unknown) (unknown) at home with her (units (unknown) date) ADLs. He also states unknown) that he is nervous about her falling (unknown) (no (unknown) (unknown) at the (units (unkno wn) date) unknown) (unknown) (no (unknown) (unknown) bruising and there (units (unknown) date) is some unknown) serosanguineous seepage at the most inferior incision (unknown) (no (unknown) (unknown) controlled with (units (unknown) date) oxycodone. It also unknown) seems like patient is not taking the (unknown) (no (unknown) (unknown) day and she wished (units (unknown) date) to grieve at home. unknown) Patient is brought in by her son today, (unknown) (no (unknown) (unknown) densities.? (units (un known) date) unknown) (unknown) (no (unknown) (unknown) depression, Denies (units (unknown) date) homicidal ideation unknown) and Denies suicidal ideation (unknown) (no (unknown) (unknown) diarrhea, Denies (units (unknown) date) nausea and Denies unknown) vomiting (unknown) (no (unknown) (unknown) discharge. TTP (units (unknown) date) unknown) (unknown) (no (unknown) (unknown) discharge. UA (units ( unknown) date) indicative of UTI. unknown) Procalcitonin 1.56. WBC elevated to 14. (unknown) (no (unknown) (unknown) dizziness, syncope. (unit s (unknown) date) unknown) (unknown) (no (unknown) (unknown) enoxaparin 40 (units ( unknown) date) mg/0.4 mL 40 mg (0.4 unknown) mL) SUBCUT DAILY 28 05/02/22 (unknown) (no (unknown) (unknown) expected (units (unkno wn) date) positions.? The hip unknown) joint appears congruent.? A fracture is also seen (unknown) (no (unknown) (unknown) falls, Denies (units ( unknown) date) lethargy and Denies unknown) weakness (unknown) (no (unknown) (unknown) folic acid 1 mg (units (unknown) date) tablet 1 mg PO DAILY unknown) #30 tabs 05/02/22 (unknown) (no (unknown) (unknown) has been reviewed. (units (unknown) date) I agree with unknown) assessment and plan. (unknown) (no (unknown) (unknown) household members: (units (unknown) date) none unknown) (unknown) (no (unknown) (unknown) in (units (unkno wn) date) unknown) (unknown) (no (unknown) (unknown) including erythema, (unit s (unknown) date) swelling, purulence. unknown) There is a small amount of serous (unknown) (no (unknown) (unknown) inpatient. (units (unk nown) date) unknown) (unknown) (no (unknown) (unknown) left ischial (units (u nknown) date) tuberosity similar unknown) to prior x-ray on 04/29/2022.? Surrounding (unknown) (no (unknown) (unknown) lightheadedness, (units (unknown) date) Denies palpitations, unknown) Denies dyspnea, Denies dyspnea on exertion (unknown) (no (unknown) (unknown) medical clearance (units (unknown) date) for acceptance into unknown) a SNF. 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 (units (unkno wn) date) unknown) (unknown) (no (unknown) (unknown) on 04/30/2022, had (units (unknown) date) surgical fixation. unknown) Patient elected to go home after the (unknown) (no (unknown) (unknown) on obtaining (units (u nknown) date) placement. Surgical unknown) incisions without overt signs of infections (unknown) (no (unknown) (unknown) oxycodone 5 mg (units (unknown) date) tablet 5 mg PO Q4HR unknown) PRN Pain, Moderate 05/02/22 (unknown) (no (unknown) (unknown) oxycodone as often (units (unknown) date) as prescribed. unknown) Patient denies fever, chills, chest pain, (unknown) (no (unknown) (unknown) placed into a SNF. (units (unknown) date) He will evaluate the unknown) patient. Patient accepted as (unknown) (no (unknown) (unknown) presents to the ED (units (unknown) date) to avail of a SNF unknown) facility. A hip fracture in the left hip (unknown) (no (unknown) (unknown) presents to the ED (units (unknown) date) to avail of a SNF unknown) facility. Will obtain labs, urine for (unknown) (no (unknown) (unknown) sclerosis is (units (u nknown) date) unknown) (unknown) (no (unknown) (unknown) sennosides 8.6 mg (units (unknown) date) tablet (senna) 8.6 unknown) mg PO BID PRN Constipation #30 05/02/22 (unknown) (no (unknown) (unknown) she has leukocytes (units (unknown) date) and bacteria in her unknown) urine with elevated procalcitonin likely (unknown) (no (unknown) (unknown) shortness of breath, (unit s (unknown) date) abdominal pain, unknown) nausea, vomiting, dysuria, lightheadedness, (unknown) (no (unknown) (unknown) site. Does not (units (unknown) date) appear to be unknown) infectious. Patient is having frequent urination (unknown) (no (unknown) (unknown) subcutaneous (units (u nknown) date) syringe (Lovenox) unknown) days #12 mL (unknown) (no (unknown) (unknown) such as swelling, (units (unknown) date) erythema, purulence. unknown) There is a small amount of serous (unknown) (no (unknown) (unknown) surgery as opposed (units (unknown) date) to going into a SNF unknown) F, due to her expiring the same (unknown) (no (unknown) (unknown) tabs (units (unkno wn) date) unknown) (unknown) (no (unknown) (unknown) thiamine (units (unkno wn) date) mononitrate (vit B1) unknown) 100 100 mg PO DAILY #30 tabs 05/02/22 (unknown) (no (unknown) (unknown) tissue (units (unkno wn) date) unknown) (unknown) (no (unknown) (unknown) unremarkable.? (units (unknown) date) unknown) (unknown) (no (unknown) (unknown) wheezing (units (unkno wn) date) unknown) (unknown) (no (unknown) (unknown) who arrived from (units (unknown) date) [facility] yesterday and unknown) observe that his mother was unable to cope Result panel 51 (unknown) (no date) (unknown) (unknown) 0 /ul (unkn own) (unknown) (no date) (unknown) (unknown) 0.6 % (unkn own) (unknown) (no date) (unknown) (unknown) 0.8 % (unkn own) (unknown) (no date) (unknown) (unknown) 10.6 % (unkn own) (unknown) (no date) (unknown) (unknown) 100 /ul (unkn own) (unknown) (no date) (unknown) (unknown) 104.7 fl (unkn own) (unknown) (no date) (unknown) (unknown) 13.3 % (unkn own) (unknown) (no date) (unknown) (unknown) 1700 /ul (unkn own) (unknown) (no date) (unknown) (unknown) 19.8 % (unkn own) (unknown) (no date) (unknown) (unknown) 2.17 x10 6/ul (unkn own) (unknown) (no date) (unknown) (unknown) 22.7 % (unkn own) (unknown) (no date) (unknown) (unknown) 34.4 % (unkn own) (unknown) (no date) (unknown) (unknown) 355 x10 3/ul (unkn own) (unknown) (no date) (unknown) (unknown) 36.0 pg (unkn own) (unknown) (no date) (unknown) (unknown) 5700 /ul (unkn own) (unknown) (no date) (unknown) (unknown) 68.2 % (unkn own) (unknown) (no date) (unknown) (unknown) 7.8 g/dl (unkn own) (unknown) (no date) (unknown) (unknown) 8.4 x10 3/ul (unkn own) (unknown) (no date) (unknown) (unknown) 900 /ul (unkn own) Result panel 52 (unknown) (no date) (unknown) (unknown) > 60 ml/min (unkn own) (unknown) (no date) (unknown) (unknown) > 60 ml/min (unkn own) (unknown) (no date) (unknown) (unknown) 0.34 mg/dl (unkn own) (unknown) (no date) (unknown) (unknown) 0.5 mg/dl (unkn own) (unknown) (no date) (unknown) (unknown) 0.9 (units unknown) (unknown) (unknown) (no date) (unknown) (unknown) 1.4 mg/dl (unkn own) (unknown) (no date) (unknown) (unknown) 11.8 (units unknown) (unknown) (unknown) (no date) (unknown) (unknown) 12 iu/l (unkn own) (unknown) (no date) (unknown) (unknown) 128 mmol/l (unkn own) (unknown) (no date) (unknown) (unknown) 2.4 g/dl (unkn own) (unknown) (no date) (unknown) (unknown) 2.8 g/dl (unkn own) (unknown) (no date) (unknown) (unknown) 22 iu/l (unkn own) (unknown) (no date) (unknown) (unknown) 24 mmol/l (unkn own) (unknown) (no date) (unknown) (unknown) 3.4 mmol/l (unkn own) (unknown) (no date) (unknown) (unknown) 4 mg/dl (unkn own) (unknown) (no date) (unknown) (unknown) 5.2 g/dl (unkn own) (unknown) (no date) (unknown) (unknown) 7.6 mg/dl (unkn own) (unknown) (no date) (unknown) (unknown) 82 mg/dl (unkn own) (unknown) (no date) (unknown) (unknown) 82 mg/dl (unkn own) (unknown) (no date) (unknown) (unknown) 96 u/l (unkn own) (unknown) (no date) (unknown) (unknown) 99 mmol/l (unkn own) Result panel 53 (unknown) (no (unknown) (unknown) 80,000 - 90,000 cfu/ml (unknown) date) (unknown) (no (unknown) (unknown) GNBGram negative (units (unknown) date) bacilli unknown) (unknown) (no (unknown) (unknown) Identification (units (unknown) date) and Sensitivity to unknown) Follow Result panel 54 (unknown) (no date) (unknown) (unknown) (no value) (units (un known) unknown) (unknown) (no date) (unknown) (unknown) No growth. (units (un known) unknown) (unknown) (no date) (unknown) (unknown) No organisms (units ( unknown) seen unknown) (unknown) (no date) (unknown) (unknown) No organisms (units ( unknown) seen unknown) (unknown) (no date) (unknown) (unknown) Occasional WBC (units (unknown) seen unknown) Result panel 55 (unknown) (no date) (unknown) (unknown) (no value) (units (un known) unknown) (unknown) (no date) (unknown) (unknown) No growth. (units (un known) unknown) (unknown) (no date) (unknown) (unknown) No organisms (units ( unknown) seen unknown) (unknown) (no date) (unknown) (unknown) No organisms (units ( unknown) seen unknown) (unknown) (no date) (unknown) (unknown) Occasional WBC (units (unknown) seen unknown) (unknown) (no date) (unknown) (unknown) Test not (units (unkn own) performed unknown) Result panel 56 (unknown) (no (unknown) (unknown) (no value) (units (unk nown) date) unknown) (unknown) (no (unknown) (unknown) (past 8 hours): (units (unknown) date) unknown) (unknown) (no (unknown) (unknown) * Ativan, (units (unkn own) date) consider librium unknown) taper if with active withdrawal (unknown) (no (unknown) (unknown) * BMI is 17 (units (un known) date) unknown) (unknown) (no (unknown) (unknown) * C. difficile (units (unknown) date) PCR has been unknown) ordered (unknown) (no (unknown) (unknown) * CIWA protocol (units (unknown) date) unknown) (unknown) (no (unknown) (unknown) * Chronic (units (unkn own) date) alcohol use unknown) likely contributing (unknown) (no (unknown) (unknown) * Continue (units (unk nown) date) multivitamins, unknown) thiamine and folic acid (unknown) (no (unknown) (unknown) * Culture is (units (u nknown) date) pending unknown) (unknown) (no (unknown) (unknown) * Daily weights (units (unknown) date) unknown) (unknown) (no (unknown) (unknown) * (units (unkno wn) date) Dietary/nutrition unknown) al consult (unknown) (no (unknown) (unknown) * General diet (units (unknown) date) unknown) (unknown) (no (unknown) (unknown) * Generalized (units ( unknown) date) weakness and unknown) debility should justify acute rehab which patient is (unknown) (no (unknown) (unknown) * PT eval in the (units (unknown) date) am unknown) (unknown) (no (unknown) (unknown) * Pain control (units (unknown) date) with tyelenol, po unknown) hydrocodone, po oxycodone (unknown) (no (unknown) (unknown) * Patient denies (units (unknown) date) having issues in unknown) the past with withdrawal (unknown) (no (unknown) (unknown) * She is started (units (unknown) date) on IV cefepime unknown) (unknown) (no (unknown) (unknown) * She is written (units (unknown) date) for a 14 mcg unknown) nicoderm patch (unknown) (no (unknown) (unknown) * Will notify (units ( unknown) date) ortho of unknown) patient's readmit (unknown) (no (unknown) (unknown) * Will stop (units (un known) date) stool softeners unknown) if she develops diarrhea (unknown) (no (unknown) (unknown) [id number] (units (unkno wn) date) unknown) (unknown) (no (unknown) (unknown) 06:05 06:05 (units (un known) date) unknown) (unknown) (no (unknown) (unknown) 08:33 05/05/22 (units (unknown) date) unknown) (unknown) (no (unknown) (unknown) 05/04/22 (units (unkno wn) date) 05/04/22 05/04/22 unknown) (unknown) (no (unknown) (unknown) 05/05/22 06:05 (units (unknown) date) unknown) (unknown) (no (unknown) (unknown) 05/05/22 (units (unkno wn) date) 05/05/22 unknown) (unknown) (no (unknown) (unknown) 05/05/22 (units (unkno wn) date) unknown) (unknown) (no (unknown) (unknown) 12:16 (units (unkno wn) date) unknown) (unknown) (no (unknown) (unknown) 16:46 16:46 (units (un known) date) 16:46 unknown) (unknown) (no (unknown) (unknown) 16:46 16:46 (units (un known) date) 17:41 unknown) (unknown) (no (unknown) (unknown) ALT 12 (units (unkno wn) date) unknown) (unknown) (no (unknown) (unknown) ALT 19 (units (unkno wn) date) unknown) (unknown) (no (unknown) (unknown) ALT (units (unkno wn) date) unknown) (unknown) (no (unknown) (unknown) AST 22 (units (unkno wn) date) unknown) (unknown) (no (unknown) (unknown) AST 40 H (units (unkno wn) date) unknown) (unknown) (no (unknown) (unknown) AST (units (unkno wn) date) unknown) (unknown) (no (unknown) (unknown) Abd: soft, (units (unk nown) date) non-tender, unknown) normoactive BTs (unknown) (no (unknown) (unknown) Age/Sex: 61 / F (units (unknown) date) unknown) (unknown) (no (unknown) (unknown) Albumin 2.4 L (units ( unknown) date) unknown) (unknown) (no (unknown) (unknown) Albumin 3.3 L (units ( unknown) date) unknown) (unknown) (no (unknown) (unknown) Albumin (units (unkno wn) date) unknown) (unknown) (no (unknown) (unknown) Albumin/Globulin (units (unknown) date) Ratio 0.9 L unknown) (unknown) (no (unknown) (unknown) Albumin/Globulin (units (unknown) date) Ratio unknown) (unknown) (no (unknown) (unknown) Alcohol (units (unkno wn) date) dependence, unknown) chronic and longstanding (unknown) (no (unknown) (unknown) Alkaline (units (unkno wn) date) Phosphatase 115 unknown) (unknown) (no (unknown) (unknown) Alkaline (units (unkno wn) date) Phosphatase 96 unknown) (unknown) (no (unknown) (unknown) Alkaline (units (unkno wn) date) Phosphatase unknown) (unknown) (no (unknown) (unknown) Amorphous (units (unkn own) date) Sediment 1 unknown) (unknown) (no (unknown) (unknown) Amorphous (units (unkn own) date) Sediment unknown) (unknown) (no (unknown) (unknown) Assessment + (units (u nknown) date) Plan narrative: unknown) (unknown) (no (unknown) (unknown) Assessment + (units (u nknown) date) Plan unknown) (unknown) (no (unknown) (unknown) BUN 4 L (units (unkno wn) date) unknown) (unknown) (no (unknown) (unknown) BUN (units (unkno wn) date) unknown) (unknown) (no (unknown) (unknown) BUN/Creatinine (units (unknown) date) Ratio 11.8 unknown) (unknown) (no (unknown) (unknown) BUN/Creatinine (units (unknown) date) Ratio 16.0 unknown) (unknown) (no (unknown) (unknown) BUN/Creatinine (units (unknown) date) Ratio unknown) (unknown) (no (unknown) (unknown) Baso # (Auto) (units ( unknown) date) 100 unknown) (unknown) (no (unknown) (unknown) Baso # (Auto) (units ( unknown) date) unknown) (unknown) (no (unknown) (unknown) Baso % (Auto) (units ( unknown) date) 0.6 unknown) (unknown) (no (unknown) (unknown) Baso % (Auto) (units ( unknown) date) 0.8 unknown) (unknown) (no (unknown) (unknown) Baso % (Auto) (units ( unknown) date) unknown) (unknown) (no (unknown) (unknown) Blood Pressure (units (unknown) date) 113/70 120/73 unknown) (unknown) (no (unknown) (unknown) CK-MB (CK-2) Rel (units (unknown) date) Index TNP unknown) (unknown) (no (unknown) (unknown) CK-MB (CK-2) Rel (units (unknown) date) Index unknown) (unknown) (no (unknown) (unknown) CK-MB (CK-2) TNP (units (unknown) date) unknown) (unknown) (no (unknown) (unknown) CK-MB (CK-2) (units (u nknown) date) unknown) (unknown) (no (unknown) (unknown) COVID-19 status: (units (unknown) date) Negative unknown) (unknown) (no (unknown) (unknown) COVID-19 (units (unkno wn) date) unknown) (unknown) (no (unknown) (unknown) CV: RRR, no (units (un known) date) murmur or rubs unknown) (unknown) (no (unknown) (unknown) Calcium 7.6 L (units ( unknown) date) unknown) (unknown) (no (unknown) (unknown) Calcium 8.6 (units (un known) date) unknown) (unknown) (no (unknown) (unknown) Calcium (units (unkno wn) date) unknown) (unknown) (no (unknown) (unknown) Carbon Dioxide (units (unknown) date) 24 unknown) (unknown) (no (unknown) (unknown) Carbon Dioxide (units (unknown) date) unknown) (unknown) (no (unknown) (unknown) Chloride 95 L (units ( unknown) date) unknown) (unknown) (no (unknown) (unknown) Chloride 99 (units (un known) date) unknown) (unknown) (no (unknown) (unknown) Chloride (units (unkno wn) date) unknown) (unknown) (no (unknown) (unknown) Code status: (units (u nknown) date) Full code as unknown) discussed with the patient who identifies her son (unknown) (no (unknown) (unknown) Consultants (units (un known) date) None. unknown) (unknown) (no (unknown) (unknown) Creatinine 0.25 (units (unknown) date) L unknown) (unknown) (no (unknown) (unknown) Creatinine 0.34 (units (unknown) date) L unknown) (unknown) (no (unknown) (unknown) Creatinine (units (unk nown) date) unknown) (unknown) (no (unknown) (unknown) Critical Care (units ( unknown) date) time: unknown) (unknown) (no (unknown) (unknown) : 1960 (units (unknown) date) Acct:[id number] unknown) (unknown) (no (unknown) (unknown) Date Patient (units (u nknown) date) Seen: 05/05/22 unknown) (unknown) (no (unknown) (unknown) Date of Service: (units (unknown) date) 05/04/22 unknown) (unknown) (no (unknown) (unknown) Deep Vein (units (unkn own) date) Thrombosis/Pulmon unknown) brijesh Embolism Present on Admission: No (unknown) (no (unknown) (unknown) Dispo: Likely (units ( unknown) date) discharge to unknown) rehab, current alcohol use may be a barrier. (unknown) (no (unknown) (unknown) Eos # (Auto) 0 (units (unknown) date) unknown) (unknown) (no (unknown) (unknown) Eos # (Auto) 100 (units (unknown) date) unknown) (unknown) (no (unknown) (unknown) Eos # (Auto) (units (u nknown) date) unknown) (unknown) (no (unknown) (unknown) Eos % (Auto) 0.4 (units (unknown) date) L unknown) (unknown) (no (unknown) (unknown) Eos % (Auto) 0.6 (units (unknown) date) L unknown) (unknown) (no (unknown) (unknown) Eos % (Auto) (units (u nknown) date) unknown) (unknown) (no (unknown) (unknown) Estimated GFR > (units (unknown) date) 60 unknown) (unknown) (no (unknown) (unknown) Estimated GFR (units ( unknown) date) unknown) (unknown) (no (unknown) (unknown) Exam Narrative: (units (unknown) date) unknown) (unknown) (no (unknown) (unknown) Exam (units (unkno wn) date) unknown) (unknown) (no (unknown) (unknown) Extremities: no (units (unknown) date) edema or joint unknown) effusions (unknown) (no (unknown) (unknown) FEN: IV fluids: (units (unknown) date) NS at 100 unknown) ml/hour, diet: general, labs: CBC, C/BMP, liver (unknown) (no (unknown) (unknown) Gen: Alert, (units (un known) date) oriented, unknown) cachectic appearing 61 y.o. female, appears (unknown) (no (unknown) (unknown) Globulin 2.8 (units (u nknown) date) unknown) (unknown) (no (unknown) (unknown) Globulin 3.6 (units (u nknown) date) unknown) (unknown) (no (unknown) (unknown) Globulin (units (unkno wn) date) unknown) (unknown) (no (unknown) (unknown) Glucose 82 (units (unk nown) date) unknown) (unknown) (no (unknown) (unknown) Glucose 86 (units (unk nown) date) unknown) (unknown) (no (unknown) (unknown) Glucose (units (unkno wn) date) unknown) (unknown) (no (unknown) (unknown) HEENT: (units (unkno wn) date) normocephalic, unknown) atraumatic, conjunctiva clear, sclera non-icteric, oral (unknown) (no (unknown) (unknown) Hct 22.7 L (units (unk nown) date) unknown) (unknown) (no (unknown) (unknown) Hct 28.8 L (units (unk nown) date) unknown) (unknown) (no (unknown) (unknown) Hct (units (unkno wn) date) unknown) (unknown) (no (unknown) (unknown) Hgb 7.8 L (units (unkn own) date) unknown) (unknown) (no (unknown) (unknown) Hgb 9.9 L (units (unkn own) date) unknown) (unknown) (no (unknown) (unknown) Hgb (units (unkno wn) date) unknown) (unknown) (no (unknown) (unknown) History of (units (unk nown) date) clostridium unknown) difficile (unknown) (no (unknown) (unknown) I confirm the (units (u nknown) date) patient?s Advance unknown) Care Plan is present, Code status is documented, (unknown) (no (unknown) (unknown) I spent a total (units (unknown) date) of [] minutes of unknown) critical care time on this patient's care (unknown) (no (unknown) (unknown) Interval (units (unkno wn) date) history: unknown) (unknown) (no (unknown) (unknown) [facility] (units (unknown) date) [address] unknown) [place] [address] (unknown) (no (unknown) (unknown) Jono her (units (unkn own) date) surrogate and unknown) POA. (unknown) (no (unknown) (unknown) Laboratory (units (unk nown) date) Results - last 24 unknown) hr (unknown) (no (unknown) (unknown) Labs (units (unkno wn) date) unknown) (unknown) (no (unknown) (unknown) Labs: (units (unkno wn) date) unknown) (unknown) (no (unknown) (unknown) Lactate 1.8 (units (un known) date) unknown) (unknown) (no (unknown) (unknown) Lactate (units (unkno wn) date) unknown) (unknown) (no (unknown) (unknown) Nichol Meng (units (unknown) date) is admitted due unknown) to failed discharge, a new urinary tract (unknown) (no (unknown) (unknown) Lymph # (Auto) (units (unknown) date) 1700 unknown) (unknown) (no (unknown) (unknown) Lymph # (Auto) (units (unknown) date) 2200 unknown) (unknown) (no (unknown) (unknown) Lymph # (Auto) (units (unknown) date) unknown) (unknown) (no (unknown) (unknown) Lymph % (Auto) (units (unknown) date) 15.3 L unknown) (unknown) (no (unknown) (unknown) Lymph % (Auto) (units (unknown) date) 19.8 L unknown) (unknown) (no (unknown) (unknown) Lymph % (Auto) (units (unknown) date) unknown) (unknown) (no (unknown) (unknown) MCH 35.6 H (units (unk nown) date) unknown) (unknown) (no (unknown) (unknown) MCH 36.0 H (units (unk nown) date) unknown) (unknown) (no (unknown) (unknown) MCH (units (unkno wn) date) unknown) (unknown) (no (unknown) (unknown) MCHC 34.4 (units (unkn own) date) unknown) (unknown) (no (unknown) (unknown) MCHC (units (unkno wn) date) unknown) (unknown) (no (unknown) (unknown) MCV 103.5 H (units (un known) date) unknown) (unknown) (no (unknown) (unknown) MCV 104.7 H (units (un known) date) unknown) (unknown) (no (unknown) (unknown) MCV (units (unkno wn) date) unknown) (unknown) (no (unknown) (unknown) MIPS - Admit (units (u nknown) date) unknown) (unknown) (no (unknown) (unknown) MIPS - DC (units (unkn own) date) unknown) (unknown) (no (unknown) (unknown) Magnesium 1.4 L (units (unknown) date) unknown) (unknown) (no (unknown) (unknown) Magnesium (units (unkn own) date) unknown) (unknown) (no (unknown) (unknown) [place] # (Auto) (units ( unknown) date) 1200 H unknown) (unknown) (no (unknown) (unknown) [place] # (Auto) (units ( unknown) date) 900 unknown) (unknown) (no (unknown) (unknown) [place] # (Auto) (units ( unknown) date) unknown) (unknown) (no (unknown) (unknown) [place] % (Auto) (units ( unknown) date) 10.6 unknown) (unknown) (no (unknown) (unknown) [place] % (Auto) (units ( unknown) date) 8.1 unknown) (unknown) (no (unknown) (unknown) [place] % (Auto) (units ( unknown) date) unknown) (unknown) (no (unknown) (unknown) Narrative (units (unkn own) date) unknown) (unknown) (no (unknown) (unknown) Neck: supple, (units ( unknown) date) full ROM, no JVD, unknown) trachea is midline (unknown) (no (unknown) (unknown) Neuro: Alert and (units (unknown) date) oriented X 4 w/no unknown) focal deficits. Speech clear and coherent. (unknown) (no (unknown) (unknown) Neut # (Auto) (units ( unknown) date) 42030 H unknown) (unknown) (no (unknown) (unknown) Neut # (Auto) (units ( unknown) date) 5700 unknown) (unknown) (no (unknown) (unknown) Neut # (Auto) (units ( unknown) date) unknown) (unknown) (no (unknown) (unknown) Neut % (Auto) (units ( unknown) date) 68.2 unknown) (unknown) (no (unknown) (unknown) Neut % (Auto) (units ( unknown) date) 75.6 H unknown) (unknown) (no (unknown) (unknown) Neut % (Auto) (units ( unknown) date) unknown) (unknown) (no (unknown) (unknown) Objective (units (unkn own) date) unknown) (unknown) (no (unknown) (unknown) Oxygen Delivery (units (unknown) date) Method Room Air unknown) (unknown) (no (unknown) (unknown) Oxygen Flow Rate (units (unknown) date) 0 0 unknown) (unknown) (no (unknown) (unknown) Oxygen Flow Rate (units (unknown) date) 0 unknown) (unknown) (no (unknown) (unknown) PFSH (units (unkno wn) date) unknown) (unknown) (no (unknown) (unknown) POD#4 left (units (unk nown) date) introchanteric unknown) hip repair (unknown) (no (unknown) (unknown) Patient is (units (unk nown) date) admitted to the unknown) inpatient service due to the severity of disease, (unknown) (no (unknown) (unknown) Patient: (units (unkno wn) date) Nichol Meng unknown) MR#: [id number] (unknown) (no (unknown) (unknown) Plt Count 355 (units ( unknown) date) unknown) (unknown) (no (unknown) (unknown) Plt Count 407 H (units (unknown) date) unknown) (unknown) (no (unknown) (unknown) Plt Count (units (unkn own) date) unknown) (unknown) (no (unknown) (unknown) Potassium 3.4 (units ( unknown) date) unknown) (unknown) (no (unknown) (unknown) Potassium 4.0 (units ( unknown) date) unknown) (unknown) (no (unknown) (unknown) Potassium (units (unkn own) date) unknown) (unknown) (no (unknown) (unknown) Procalcitonin (units ( unknown) date) 1.56 H unknown) (unknown) (no (unknown) (unknown) Procalcitonin (units ( unknown) date) unknown) (unknown) (no (unknown) (unknown) Progress Note (units ( unknown) date) unknown) (unknown) (no (unknown) (unknown) Provider: (units (unkn own) date) Jameson Guevara unknown) D.O. (unknown) (no (unknown) (unknown) Psyche: calm and (units (unknown) date) cooperative with unknown) stable behavior. (unknown) (no (unknown) (unknown) Pulse Oximetry (units (unknown) date) 98 97 unknown) (unknown) (no (unknown) (unknown) Pulse Rate 87 88 (units (unknown) date) unknown) (unknown) (no (unknown) (unknown) RBC 2.17 L (units (unk nown) date) unknown) (unknown) (no (unknown) (unknown) RBC 2.79 L (units (unk nown) date) unknown) (unknown) (no (unknown) (unknown) RBC (units (unkno wn) date) unknown) (unknown) (no (unknown) (unknown) RDW 13.3 (units (unkno wn) date) unknown) (unknown) (no (unknown) (unknown) RDW (units (unkno wn) date) unknown) (unknown) (no (unknown) (unknown) Resp: Lungs CTA, (units (unknown) date) non-labored unknown) breathing (unknown) (no (unknown) (unknown) Respiratory Rate (units (unknown) date) 18 17 unknown) (unknown) (no (unknown) (unknown) Result Diagrams: (units (unknown) date) unknown) (unknown) (no (unknown) (unknown) Result date/Date (units (unknown) date) tested (Pos, unknown) Neg/Pending): 05/04/22 (unknown) (no (unknown) (unknown) SARS-CoV-2 (PCR) (units (unknown) date) Negative unknown) (unknown) (no (unknown) (unknown) SARS-CoV-2 (PCR) (units (unknown) date) unknown) (unknown) (no (unknown) (unknown) SCDs. (units (unkno wn) date) unknown) (unknown) (no (unknown) (unknown) Severe protein (units (unknown) date) calorie malnution unknown) (unknown) (no (unknown) (unknown) She reports hip (units (unknown) date) pain is unknown) adequately controlled today. Denies chest pain, (unknown) (no (unknown) (unknown) Signed By: (units (unk nown) date) unknown) (unknown) (no (unknown) (unknown) Skin: no lesions (units (unknown) date) or rashes, dry unknown) and intact (unknown) (no (unknown) (unknown) Smoking Status: (units (unknown) date) Current every day unknown) smoker (unknown) (no (unknown) (unknown) Social History (units (unknown) date) (Reviewed unknown) 05/04/22 @ 19:33 by Roe Su PA-C) (unknown) (no (unknown) (unknown) Sodium 128 L (units (u nknown) date) unknown) (unknown) (no (unknown) (unknown) Sodium 129 L (units (u nknown) date) unknown) (unknown) (no (unknown) (unknown) Sodium (units (unkno wn) date) unknown) (unknown) (no (unknown) (unknown) Status post (units (un known) date) appendectomy unknown) (unknown) (no (unknown) (unknown) Status post (units (un known) date) breast lumpectomy unknown) (unknown) (no (unknown) (unknown) Status post (units (un known) date) hysterectomy unknown) (unknown) (no (unknown) (unknown) Subjective (units (unk nown) date) unknown) (unknown) (no (unknown) (unknown) Surgical History (units (unknown) date) (Reviewed unknown) 05/04/22 @ 19:33 by Roe Su PA-C) (unknown) (no (unknown) (unknown) Surrogate (units (unkn own) date) decision maker is unknown) in patient?s record: Yes (unknown) (no (unknown) (unknown) Temperature 97.7 (units (unknown) date) F 97.2 F L unknown) (unknown) (no (unknown) (unknown) The patient has (units (unknown) date) current or prior unknown) documentation of left ventricular ejection (unknown) (no (unknown) (unknown) Time Spent With (units (unknown) date) Patient unknown) (unknown) (no (unknown) (unknown) Tobacco (units (unkno wn) date) dependence, unknown) chronic and longstanding (unknown) (no (unknown) (unknown) Total Bilirubin (units (unknown) date) 0.5 unknown) (unknown) (no (unknown) (unknown) Total Bilirubin (units (unknown) date) 0.8 unknown) (unknown) (no (unknown) (unknown) Total Bilirubin (units (unknown) date) unknown) (unknown) (no (unknown) (unknown) Total Creatine (units (unknown) date) Kinase 64 unknown) (unknown) (no (unknown) (unknown) Total Creatine (units (unknown) date) Kinase unknown) (unknown) (no (unknown) (unknown) Total Protein (units ( unknown) date) 5.2 L unknown) (unknown) (no (unknown) (unknown) Total Protein (units ( unknown) date) 6.9 unknown) (unknown) (no (unknown) (unknown) Total Protein (units ( unknown) date) unknown) (unknown) (no (unknown) (unknown) Troponin I < (units (u nknown) date) 0.012 unknown) (unknown) (no (unknown) (unknown) Troponin I (units (unk nown) date) unknown) (unknown) (no (unknown) (unknown) Ur Culture (units (unk nown) date) Indicated? unknown) Specimen cultured (unknown) (no (unknown) (unknown) Ur Culture (units (unk nown) date) Indicated? unknown) (unknown) (no (unknown) (unknown) Ur Leukocyte (units (u nknown) date) Esterase 1+ H unknown) (unknown) (no (unknown) (unknown) Ur Leukocyte (units (u nknown) date) Esterase unknown) (unknown) (no (unknown) (unknown) Ur Specific (units (un known) date) [place] <=1.005 unknown) (unknown) (no (unknown) (unknown) Ur Specific (units (un known) date) [place] unknown) (unknown) (no (unknown) (unknown) Ur Squamous (units (un known) date) Epith Cells 0-1 unknown) /hpf (unknown) (no (unknown) (unknown) Ur Squamous (units (un known) date) Epith Cells unknown) (unknown) (no (unknown) (unknown) Urinary tract (units ( unknown) date) infection, acute unknown) and present on admission (unknown) (no (unknown) (unknown) Urine Appearance (units (unknown) date) Clear unknown) (unknown) (no (unknown) (unknown) Urine Appearance (units (unknown) date) unknown) (unknown) (no (unknown) (unknown) Urine Bacteria (units (unknown) date) Few (2-10) H unknown) (unknown) (no (unknown) (unknown) Urine Bacteria (units (unknown) date) unknown) (unknown) (no (unknown) (unknown) Urine Bilirubin (units (unknown) date) Negative unknown) (unknown) (no (unknown) (unknown) Urine Bilirubin (units (unknown) date) unknown) (unknown) (no (unknown) (unknown) Urine Color (units (un known) date) Yellow unknown) (unknown) (no (unknown) (unknown) Urine Color (units (un known) date) unknown) (unknown) (no (unknown) (unknown) Urine Glucose (units ( unknown) date) (UA) Negative unknown) (unknown) (no (unknown) (unknown) Urine Glucose (units ( unknown) date) (UA) unknown) (unknown) (no (unknown) (unknown) Urine Ketones (units ( unknown) date) Negative unknown) (unknown) (no (unknown) (unknown) Urine Ketones (units ( unknown) date) unknown) (unknown) (no (unknown) (unknown) Urine Nitrate (units ( unknown) date) Negative unknown) (unknown) (no (unknown) (unknown) Urine Nitrate (units ( unknown) date) unknown) (unknown) (no (unknown) (unknown) Urine Occult (units (u nknown) date) Blood 1+ H unknown) (unknown) (no (unknown) (unknown) Urine Occult (units (u nknown) date) Blood unknown) (unknown) (no (unknown) (unknown) Urine Protein (units ( unknown) date) Negative unknown) (unknown) (no (unknown) (unknown) Urine Protein (units ( unknown) date) unknown) (unknown) (no (unknown) (unknown) Urine RBC (units (unkn own) date) 0-1/hpf unknown) (unknown) (no (unknown) (unknown) Urine RBC (units (unkn own) date) unknown) (unknown) (no (unknown) (unknown) Urine (units (unkno wn) date) Urobilinogen 0.2 unknown) (unknown) (no (unknown) (unknown) Urine (units (unkno wn) date) Urobilinogen unknown) (unknown) (no (unknown) (unknown) Urine WBC (units (unkn own) date) 1-5/hpf unknown) (unknown) (no (unknown) (unknown) Urine WBC (units (unkn own) date) unknown) (unknown) (no (unknown) (unknown) Urine pH 7.0 (units (u nknown) date) unknown) (unknown) (no (unknown) (unknown) Urine pH (units (unkno wn) date) unknown) (unknown) (no (unknown) (unknown) VTE Prophylaxis: (units (unknown) date) Wells risk score unknown) 3 Enoxaparin 40 mg subQ once daily Bilateral (unknown) (no (unknown) (unknown) VTE (units (unkno wn) date) unknown) (unknown) (no (unknown) (unknown) Vital Signs (units (un known) date) unknown) (unknown) (no (unknown) (unknown) WBC 14.1 H (units (unk nown) date) unknown) (unknown) (no (unknown) (unknown) WBC 8.4 (units (unkno wn) date) unknown) (unknown) (no (unknown) (unknown) WBC (units (unkno wn) date) unknown) (unknown) (no (unknown) (unknown) [Embedded Image (units (unknown) date) Not Available] unknown) (unknown) (no (unknown) (unknown) [X] I have (units (unk nown) date) utilized all unknown) available immediate resources to obtain, update, or (unknown) (no (unknown) (unknown) abdominal pain, (units (unknown) date) [place]asea, or unknown) vomiting. (unknown) (no (unknown) (unknown) alcohol intake: (units (unknown) date) current unknown) (unknown) (no (unknown) (unknown) enzymes, Mag, (units ( unknown) date) PT/INR unknown) (unknown) (no (unknown) (unknown) fraction (LVEF) (units (unknown) date) less than 40%, or unknown) moderate or severely depressed left (unknown) (no (unknown) (unknown) household (units (unkn own) date) members: none unknown) (unknown) (no (unknown) (unknown) infection and (units ( unknown) date) severe protein unknown) malnutrition. (unknown) (no (unknown) (unknown) midnights. (units (unk nown) date) unknown) (unknown) (no (unknown) (unknown) mucosa pink and (units (unknown) date) moist unknown) (unknown) (no (unknown) (unknown) now amenable to (units (unknown) date) do unknown) (unknown) (no (unknown) (unknown) older than (units (unk nown) date) stated age. unknown) (unknown) (no (unknown) (unknown) review of the (units ( unknown) date) patient's current unknown) medications (unknown) (no (unknown) (unknown) risks of further (units (unknown) date) disease unknown) progression and this stay is expected to exceed 2 (unknown) (no (unknown) (unknown) today; this time (units (unknown) date) is exclusive of unknown) procedural time. (unknown) (no (unknown) (unknown) ventricular (units (un known) date) systolic unknown) function.: No Result panel 57 (unknown) (no (unknown) (unknown) (no value) (units (unk nown) date) unknown) (unknown) (no (unknown) (unknown) (past 8 hours): (units (unknown) date) unknown) (unknown) (no (unknown) (unknown) * BMI is 16.9 (units ( unknown) date) unknown) (unknown) (no (unknown) (unknown) * CIWA protocol (units (unknown) date) ordered unknown) (unknown) (no (unknown) (unknown) * Chronic (units (unkn own) date) alcohol use unknown) likely contributing (unknown) (no (unknown) (unknown) * Continue (units (unk nown) date) multivitamins, unknown) thiamine and folic acid which will also help with (unknown) (no (unknown) (unknown) * (units (unkno wn) date) Dietary/nutrition unknown) al consult (unknown) (no (unknown) (unknown) * General diet (units (unknown) date) unknown) (unknown) (no (unknown) (unknown) * Pain control (units (unknown) date) with tyelenol, po unknown) hydrocodone, po oxycodone (unknown) (no (unknown) (unknown) * Patient denies (units (unknown) date) having issues in unknown) the past with withdrawal (unknown) (no (unknown) (unknown) * She is written (units (unknown) date) for a 14 mcg unknown) nicoderm patch (unknown) (no (unknown) (unknown) * c. diff PCR if (units (unknown) date) liquid stools, no unknown) current symptoms. (unknown) (no (unknown) (unknown) * continue (units (unk nown) date) cefepime for now unknown) pending cultures (unknown) (no (unknown) (unknown) * continue (units (unk nown) date) physical therapy. unknown) (unknown) (no (unknown) (unknown) * patient's (units (un known) date) severe protein unknown) calorie malnutrition contributes to weakness and (unknown) (no (unknown) (unknown) * plan for SNF (units (unknown) date) unknown) (unknown) (no (unknown) (unknown) [id number] (units (unkno wn) date) unknown) (unknown) (no (unknown) (unknown) 06:05 06:05 (units (un known) date) unknown) (unknown) (no (unknown) (unknown) 08:33 05/05/22 (units (unknown) date) unknown) (unknown) (no (unknown) (unknown) 05/04/22 (units (unkno wn) date) 05/04/22 05/04/22 unknown) (unknown) (no (unknown) (unknown) 05/05/22 06:05 (units (unknown) date) unknown) (unknown) (no (unknown) (unknown) 05/05/22 (units (unkno wn) date) 05/05/22 unknown) (unknown) (no (unknown) (unknown) 05/05/22 1309 (units ( unknown) date) unknown) (unknown) (no (unknown) (unknown) 05/05/22 (units (unkno wn) date) unknown) (unknown) (no (unknown) (unknown) 12:16 (units (unkno wn) date) unknown) (unknown) (no (unknown) (unknown) 16:46 16:46 (units (un known) date) 16:46 unknown) (unknown) (no (unknown) (unknown) 16:46 16:46 (units (un known) date) 17:41 unknown) (unknown) (no (unknown) (unknown) ALT 12 (units (unkno wn) date) unknown) (unknown) (no (unknown) (unknown) ALT 19 (units (unkno wn) date) unknown) (unknown) (no (unknown) (unknown) ALT (units (unkno wn) date) unknown) (unknown) (no (unknown) (unknown) AST 22 (units (unkno wn) date) unknown) (unknown) (no (unknown) (unknown) AST 40 H (units (unkno wn) date) unknown) (unknown) (no (unknown) (unknown) AST (units (unkno wn) date) unknown) (unknown) (no (unknown) (unknown) Abd: soft, (units (unk nown) date) non-tender, unknown) normoactive BTs (unknown) (no (unknown) (unknown) Age/Sex: 61 / F (units (unknown) date) unknown) (unknown) (no (unknown) (unknown) Albumin 2.4 L (units ( unknown) date) unknown) (unknown) (no (unknown) (unknown) Albumin 3.3 L (units ( unknown) date) unknown) (unknown) (no (unknown) (unknown) Albumin (units (unkno wn) date) unknown) (unknown) (no (unknown) (unknown) Albumin/Globulin (units (unknown) date) Ratio 0.9 L unknown) (unknown) (no (unknown) (unknown) Albumin/Globulin (units (unknown) date) Ratio unknown) (unknown) (no (unknown) (unknown) Alcohol (units (unkno wn) date) dependence, unknown) chronic and longstanding (unknown) (no (unknown) (unknown) Alkaline (units (unkno wn) date) Phosphatase 115 unknown) (unknown) (no (unknown) (unknown) Alkaline (units (unkno wn) date) Phosphatase 96 unknown) (unknown) (no (unknown) (unknown) Alkaline (units (unkno wn) date) Phosphatase unknown) (unknown) (no (unknown) (unknown) Amorphous (units (unkn own) date) Sediment 1 unknown) (unknown) (no (unknown) (unknown) Amorphous (units (unkn own) date) Sediment unknown) (unknown) (no (unknown) (unknown) Assessment + (units (u nknown) date) Plan narrative: unknown) (unknown) (no (unknown) (unknown) Assessment + (units (u nknown) date) Plan unknown) (unknown) (no (unknown) (unknown) BUN 4 L (units (unkno wn) date) unknown) (unknown) (no (unknown) (unknown) BUN (units (unkno wn) date) unknown) (unknown) (no (unknown) (unknown) BUN/Creatinine (units (unknown) date) Ratio 11.8 unknown) (unknown) (no (unknown) (unknown) BUN/Creatinine (units (unknown) date) Ratio 16.0 unknown) (unknown) (no (unknown) (unknown) BUN/Creatinine (units (unknown) date) Ratio unknown) (unknown) (no (unknown) (unknown) Baso # (Auto) (units ( unknown) date) 100 unknown) (unknown) (no (unknown) (unknown) Baso # (Auto) (units ( unknown) date) unknown) (unknown) (no (unknown) (unknown) Baso % (Auto) (units ( unknown) date) 0.6 unknown) (unknown) (no (unknown) (unknown) Baso % (Auto) (units ( unknown) date) 0.8 unknown) (unknown) (no (unknown) (unknown) Baso % (Auto) (units ( unknown) date) unknown) (unknown) (no (unknown) (unknown) Blood Pressure (units (unknown) date) 113/70 120/73 unknown) (unknown) (no (unknown) (unknown) CK-MB (CK-2) Rel (units (unknown) date) Index TNP unknown) (unknown) (no (unknown) (unknown) CK-MB (CK-2) Rel (units (unknown) date) Index unknown) (unknown) (no (unknown) (unknown) CK-MB (CK-2) TNP (units (unknown) date) unknown) (unknown) (no (unknown) (unknown) CK-MB (CK-2) (units (u nknown) date) unknown) (unknown) (no (unknown) (unknown) COVID-19 status: (units (unknown) date) Negative unknown) (unknown) (no (unknown) (unknown) COVID-19 (units (unkno wn) date) unknown) (unknown) (no (unknown) (unknown) CV: RRR, no (units (un known) date) murmur or rubs unknown) (unknown) (no (unknown) (unknown) Calcium 7.6 L (units ( unknown) date) unknown) (unknown) (no (unknown) (unknown) Calcium 8.6 (units (un known) date) unknown) (unknown) (no (unknown) (unknown) Calcium (units (unkno wn) date) unknown) (unknown) (no (unknown) (unknown) Carbon Dioxide (units (unknown) date) 24 unknown) (unknown) (no (unknown) (unknown) Carbon Dioxide (units (unknown) date) unknown) (unknown) (no (unknown) (unknown) Chloride 95 L (units ( unknown) date) unknown) (unknown) (no (unknown) (unknown) Chloride 99 (units (un known) date) unknown) (unknown) (no (unknown) (unknown) Chloride (units (unkno wn) date) unknown) (unknown) (no (unknown) (unknown) Code status: (units (u nknown) date) Full code as unknown) discussed with the patient who identifies her son (unknown) (no (unknown) (unknown) Consultants (units (un known) date) None. unknown) (unknown) (no (unknown) (unknown) Creatinine 0.25 (units (unknown) date) L unknown) (unknown) (no (unknown) (unknown) Creatinine 0.34 (units (unknown) date) L unknown) (unknown) (no (unknown) (unknown) Creatinine (units (unk nown) date) unknown) (unknown) (no (unknown) (unknown) Critical Care (units ( unknown) date) time: unknown) (unknown) (no (unknown) (unknown) : 1960 (units (unknown) date) Acct:[id number] unknown) (unknown) (no (unknown) (unknown) Date Patient (units (u nknown) date) Seen: 05/05/22 unknown) (unknown) (no (unknown) (unknown) Date of Service: (units (unknown) date) 05/04/22 unknown) (unknown) (no (unknown) (unknown) Dispo: Likely (units ( unknown) date) discharge to unknown) rehab (unknown) (no (unknown) (unknown) Eos # (Auto) 0 (units (unknown) date) unknown) (unknown) (no (unknown) (unknown) Eos # (Auto) 100 (units (unknown) date) unknown) (unknown) (no (unknown) (unknown) Eos # (Auto) (units (u nknown) date) unknown) (unknown) (no (unknown) (unknown) Eos % (Auto) 0.4 (units (unknown) date) L unknown) (unknown) (no (unknown) (unknown) Eos % (Auto) 0.6 (units (unknown) date) L unknown) (unknown) (no (unknown) (unknown) Eos % (Auto) (units (u nknown) date) unknown) (unknown) (no (unknown) (unknown) Estimated GFR > (units (unknown) date) 60 unknown) (unknown) (no (unknown) (unknown) Estimated GFR (units ( unknown) date) unknown) (unknown) (no (unknown) (unknown) Exam Narrative: (units (unknown) date) unknown) (unknown) (no (unknown) (unknown) Exam (units (unkno wn) date) unknown) (unknown) (no (unknown) (unknown) Extremities: no (units (unknown) date) edema or joint unknown) effusions (unknown) (no (unknown) (unknown) Gen: Alert, (units (un known) date) oriented, unknown) cachectic appearing 61 y.o. female, appears (unknown) (no (unknown) (unknown) Globulin 2.8 (units (u nknown) date) unknown) (unknown) (no (unknown) (unknown) Globulin 3.6 (units (u nknown) date) unknown) (unknown) (no (unknown) (unknown) Globulin (units (unkno wn) date) unknown) (unknown) (no (unknown) (unknown) Glucose 82 (units (unk nown) date) unknown) (unknown) (no (unknown) (unknown) Glucose 86 (units (unk nown) date) unknown) (unknown) (no (unknown) (unknown) Glucose (units (unkno wn) date) unknown) (unknown) (no (unknown) (unknown) HEENT: (units (unkno wn) date) normocephalic, unknown) atraumatic, conjunctiva clear, sclera non-icteric, oral (unknown) (no (unknown) (unknown) Hct 22.7 L (units (unk nown) date) unknown) (unknown) (no (unknown) (unknown) Hct 28.8 L (units (unk nown) date) unknown) (unknown) (no (unknown) (unknown) Hct (units (unkno wn) date) unknown) (unknown) (no (unknown) (unknown) Hgb 7.8 L (units (unkn own) date) unknown) (unknown) (no (unknown) (unknown) Hgb 9.9 L (units (unkn own) date) unknown) (unknown) (no (unknown) (unknown) Hgb (units (unkno wn) date) unknown) (unknown) (no (unknown) (unknown) History of (units (unk nown) date) clostridium unknown) difficile (unknown) (no (unknown) (unknown) I spent a total (units (unknown) date) of [] minutes of unknown) critical care time on this patient's care (unknown) (no (unknown) (unknown) Interval (units (unkno wn) date) history: unknown) (unknown) (no (unknown) (unknown) [facility] (units (unknown) date) [address] unknown) [place] [address] (unknown) (no (unknown) (unknown) Jono her (units (unkn own) date) surrogate and unknown) POA. (unknown) (no (unknown) (unknown) Laboratory (units (unk nown) date) Results - last 24 unknown) hr (unknown) (no (unknown) (unknown) Labs (units (unkno wn) date) unknown) (unknown) (no (unknown) (unknown) Labs: (units (unkno wn) date) unknown) (unknown) (no (unknown) (unknown) Lactate 1.8 (units (un known) date) unknown) (unknown) (no (unknown) (unknown) Lactate (units (unkno wn) date) unknown) (unknown) (no (unknown) (unknown) Nichol Meng (units (unknown) date) is admitted due unknown) to failed discharge home after recent left hip (unknown) (no (unknown) (unknown) Lymph # (Auto) (units (unknown) date) 1700 unknown) (unknown) (no (unknown) (unknown) Lymph # (Auto) (units (unknown) date) 2200 unknown) (unknown) (no (unknown) (unknown) Lymph # (Auto) (units (unknown) date) unknown) (unknown) (no (unknown) (unknown) Lymph % (Auto) (units (unknown) date) 15.3 L unknown) (unknown) (no (unknown) (unknown) Lymph % (Auto) (units (unknown) date) 19.8 L unknown) (unknown) (no (unknown) (unknown) Lymph % (Auto) (units (unknown) date) unknown) (unknown) (no (unknown) (unknown) MCH 35.6 H (units (unk nown) date) unknown) (unknown) (no (unknown) (unknown) MCH 36.0 H (units (unk nown) date) unknown) (unknown) (no (unknown) (unknown) MCH (units (unkno wn) date) unknown) (unknown) (no (unknown) (unknown) MCHC 34.4 (units (unkn own) date) unknown) (unknown) (no (unknown) (unknown) MCHC (units (unkno wn) date) unknown) (unknown) (no (unknown) (unknown) MCV 103.5 H (units (un known) date) unknown) (unknown) (no (unknown) (unknown) MCV 104.7 H (units (un known) date) unknown) (unknown) (no (unknown) (unknown) MCV (units (unkno wn) date) unknown) (unknown) (no (unknown) (unknown) Magnesium 1.4 L (units (unknown) date) unknown) (unknown) (no (unknown) (unknown) Magnesium (units (unkn own) date) unknown) (unknown) (no (unknown) (unknown) [place] # (Auto) (units ( unknown) date) 1200 H unknown) (unknown) (no (unknown) (unknown) [place] # (Auto) (units ( unknown) date) 900 unknown) (unknown) (no (unknown) (unknown) [place] # (Auto) (units ( unknown) date) unknown) (unknown) (no (unknown) (unknown) [place] % (Auto) (units ( unknown) date) 10.6 unknown) (unknown) (no (unknown) (unknown) [place] % (Auto) (units ( unknown) date) 8.1 unknown) (unknown) (no (unknown) (unknown) [place] % (Auto) (units ( unknown) date) unknown) (unknown) (no (unknown) (unknown) Narrative (units (unkn own) date) unknown) (unknown) (no (unknown) (unknown) Neck: supple, (units ( unknown) date) full ROM, no JVD, unknown) trachea is midline (unknown) (no (unknown) (unknown) Neuro: Alert and (units (unknown) date) oriented X 4 w/no unknown) focal deficits. Speech clear and coherent. (unknown) (no (unknown) (unknown) Neut # (Auto) (units ( unknown) date) 41260 H unknown) (unknown) (no (unknown) (unknown) Neut # (Auto) (units ( unknown) date) 5700 unknown) (unknown) (no (unknown) (unknown) Neut # (Auto) (units ( unknown) date) unknown) (unknown) (no (unknown) (unknown) Neut % (Auto) (units ( unknown) date) 68.2 unknown) (unknown) (no (unknown) (unknown) Neut % (Auto) (units ( unknown) date) 75.6 H unknown) (unknown) (no (unknown) (unknown) Neut % (Auto) (units ( unknown) date) unknown) (unknown) (no (unknown) (unknown) Objective (units (unkn own) date) unknown) (unknown) (no (unknown) (unknown) Oxygen Delivery (units (unknown) date) Method Room Air unknown) (unknown) (no (unknown) (unknown) Oxygen Flow Rate (units (unknown) date) 0 0 unknown) (unknown) (no (unknown) (unknown) Oxygen Flow Rate (units (unknown) date) 0 unknown) (unknown) (no (unknown) (unknown) PFSH (units (unkno wn) date) unknown) (unknown) (no (unknown) (unknown) POD#4 left (units (unk nown) date) introchanteric unknown) hip repair (unknown) (no (unknown) (unknown) Patient is (units (unk nown) date) admitted to the unknown) inpatient service due to the severity of disease, (unknown) (no (unknown) (unknown) Patient: (units (unkno wn) date) Nichol Meng unknown) MR#: [id number] (unknown) (no (unknown) (unknown) Plt Count 355 (units ( unknown) date) unknown) (unknown) (no (unknown) (unknown) Plt Count 407 H (units (unknown) date) unknown) (unknown) (no (unknown) (unknown) Plt Count (units (unkn own) date) unknown) (unknown) (no (unknown) (unknown) Potassium 3.4 (units ( unknown) date) unknown) (unknown) (no (unknown) (unknown) Potassium 4.0 (units ( unknown) date) unknown) (unknown) (no (unknown) (unknown) Potassium (units (unkn own) date) unknown) (unknown) (no (unknown) (unknown) Procalcitonin (units ( unknown) date) 1.56 H unknown) (unknown) (no (unknown) (unknown) Procalcitonin (units ( unknown) date) unknown) (unknown) (no (unknown) (unknown) Progress Note (units ( unknown) date) unknown) (unknown) (no (unknown) (unknown) Provider: (units (unkn own) date) Jameson Guevara unknown) D.O. (unknown) (no (unknown) (unknown) Psyche: calm and (units (unknown) date) cooperative with unknown) stable behavior. (unknown) (no (unknown) (unknown) Pulse Oximetry (units (unknown) date) 98 97 unknown) (unknown) (no (unknown) (unknown) Pulse Rate 87 88 (units (unknown) date) unknown) (unknown) (no (unknown) (unknown) RBC 2.17 L (units (unk nown) date) unknown) (unknown) (no (unknown) (unknown) RBC 2.79 L (units (unk nown) date) unknown) (unknown) (no (unknown) (unknown) RBC (units (unkno wn) date) unknown) (unknown) (no (unknown) (unknown) RDW 13.3 (units (unkno wn) date) unknown) (unknown) (no (unknown) (unknown) RDW (units (unkno wn) date) unknown) (unknown) (no (unknown) (unknown) Resp: Lungs CTA, (units (unknown) date) non-labored unknown) breathing (unknown) (no (unknown) (unknown) Respiratory Rate (units (unknown) date) 18 17 unknown) (unknown) (no (unknown) (unknown) Result Diagrams: (units (unknown) date) unknown) (unknown) (no (unknown) (unknown) Result date/Date (units (unknown) date) tested (Pos, unknown) Neg/Pending): 05/04/22 (unknown) (no (unknown) (unknown) SARS-CoV-2 (PCR) (units (unknown) date) Negative unknown) (unknown) (no (unknown) (unknown) SARS-CoV-2 (PCR) (units (unknown) date) unknown) (unknown) (no (unknown) (unknown) SCDs. (units (unkno wn) date) unknown) (unknown) (no (unknown) (unknown) Severe protein (units (unknown) date) calorie malnution unknown) (unknown) (no (unknown) (unknown) She reports hip (units (unknown) date) pain is unknown) adequately controlled today. Denies chest pain, (unknown) (no (unknown) (unknown) Signed (units (unkno wn) date) By:<Electronicall unknown) y signed by Jameson Guevara D.O.> (unknown) (no (unknown) (unknown) Skin: no lesions (units (unknown) date) or rashes, dry unknown) and intact (unknown) (no (unknown) (unknown) Smoking Status: (units (unknown) date) Current every day unknown) smoker (unknown) (no (unknown) (unknown) Social History (units (unknown) date) (Reviewed unknown) 05/04/22 @ 19:33 by Roe Su PA-C) (unknown) (no (unknown) (unknown) Sodium 128 L (units (u nknown) date) unknown) (unknown) (no (unknown) (unknown) Sodium 129 L (units (u nknown) date) unknown) (unknown) (no (unknown) (unknown) Sodium (units (unkno wn) date) unknown) (unknown) (no (unknown) (unknown) Status post (units (un known) date) appendectomy unknown) (unknown) (no (unknown) (unknown) Status post (units (un known) date) breast lumpectomy unknown) (unknown) (no (unknown) (unknown) Status post (units (un known) date) hysterectomy unknown) (unknown) (no (unknown) (unknown) Subjective (units (unk nown) date) unknown) (unknown) (no (unknown) (unknown) Surgical History (units (unknown) date) (Reviewed unknown) 05/04/22 @ 19:33 by Roe Su PA-C) (unknown) (no (unknown) (unknown) Temperature 97.7 (units (unknown) date) F 97.2 F L unknown) (unknown) (no (unknown) (unknown) Time Spent With (units (unknown) date) Patient unknown) (unknown) (no (unknown) (unknown) Tobacco (units (unkno wn) date) dependence, unknown) chronic and longstanding (unknown) (no (unknown) (unknown) Total Bilirubin (units (unknown) date) 0.5 unknown) (unknown) (no (unknown) (unknown) Total Bilirubin (units (unknown) date) 0.8 unknown) (unknown) (no (unknown) (unknown) Total Bilirubin (units (unknown) date) unknown) (unknown) (no (unknown) (unknown) Total Creatine (units (unknown) date) Kinase 64 unknown) (unknown) (no (unknown) (unknown) Total Creatine (units (unknown) date) Kinase unknown) (unknown) (no (unknown) (unknown) Total Protein (units ( unknown) date) 5.2 L unknown) (unknown) (no (unknown) (unknown) Total Protein (units ( unknown) date) 6.9 unknown) (unknown) (no (unknown) (unknown) Total Protein (units ( unknown) date) unknown) (unknown) (no (unknown) (unknown) Troponin I < (units (u nknown) date) 0.012 unknown) (unknown) (no (unknown) (unknown) Troponin I (units (unk nown) date) unknown) (unknown) (no (unknown) (unknown) Ur Culture (units (unk nown) date) Indicated? unknown) Specimen cultured (unknown) (no (unknown) (unknown) Ur Culture (units (unk nown) date) Indicated? unknown) (unknown) (no (unknown) (unknown) Ur Leukocyte (units (u nknown) date) Esterase 1+ H unknown) (unknown) (no (unknown) (unknown) Ur Leukocyte (units (u nknown) date) Esterase unknown) (unknown) (no (unknown) (unknown) Ur Specific (units (un known) date) [place] <=1.005 unknown) (unknown) (no (unknown) (unknown) Ur Specific (units (un known) date) [place] unknown) (unknown) (no (unknown) (unknown) Ur Squamous (units (un known) date) Epith Cells 0-1 unknown) /hpf (unknown) (no (unknown) (unknown) Ur Squamous (units (un known) date) Epith Cells unknown) (unknown) (no (unknown) (unknown) Urinary tract (units ( unknown) date) infection, acute unknown) and present on admission (unknown) (no (unknown) (unknown) Urine Appearance (units (unknown) date) Clear unknown) (unknown) (no (unknown) (unknown) Urine Appearance (units (unknown) date) unknown) (unknown) (no (unknown) (unknown) Urine Bacteria (units (unknown) date) Few (2-10) H unknown) (unknown) (no (unknown) (unknown) Urine Bacteria (units (unknown) date) unknown) (unknown) (no (unknown) (unknown) Urine Bilirubin (units (unknown) date) Negative unknown) (unknown) (no (unknown) (unknown) Urine Bilirubin (units (unknown) date) unknown) (unknown) (no (unknown) (unknown) Urine Color (units (un known) date) Yellow unknown) (unknown) (no (unknown) (unknown) Urine Color (units (un known) date) unknown) (unknown) (no (unknown) (unknown) Urine Glucose (units ( unknown) date) (UA) Negative unknown) (unknown) (no (unknown) (unknown) Urine Glucose (units ( unknown) date) (UA) unknown) (unknown) (no (unknown) (unknown) Urine Ketones (units ( unknown) date) Negative unknown) (unknown) (no (unknown) (unknown) Urine Ketones (units ( unknown) date) unknown) (unknown) (no (unknown) (unknown) Urine Nitrate (units ( unknown) date) Negative unknown) (unknown) (no (unknown) (unknown) Urine Nitrate (units ( unknown) date) unknown) (unknown) (no (unknown) (unknown) Urine Occult (units (u nknown) date) Blood 1+ H unknown) (unknown) (no (unknown) (unknown) Urine Occult (units (u nknown) date) Blood unknown) (unknown) (no (unknown) (unknown) Urine Protein (units ( unknown) date) Negative unknown) (unknown) (no (unknown) (unknown) Urine Protein (units ( unknown) date) unknown) (unknown) (no (unknown) (unknown) Urine RBC (units (unkn own) date) 0-1/hpf unknown) (unknown) (no (unknown) (unknown) Urine RBC (units (unkn own) date) unknown) (unknown) (no (unknown) (unknown) Urine (units (unkno wn) date) Urobilinogen 0.2 unknown) (unknown) (no (unknown) (unknown) Urine (units (unkno wn) date) Urobilinogen unknown) (unknown) (no (unknown) (unknown) Urine WBC (units (unkn own) date) 1-5/hpf unknown) (unknown) (no (unknown) (unknown) Urine WBC (units (unkn own) date) unknown) (unknown) (no (unknown) (unknown) Urine pH 7.0 (units (u nknown) date) unknown) (unknown) (no (unknown) (unknown) Urine pH (units (unkno wn) date) unknown) (unknown) (no (unknown) (unknown) VTE Prophylaxis: (units (unknown) date) Wells risk score unknown) 3 Enoxaparin 40 mg subQ once daily Bilateral (unknown) (no (unknown) (unknown) Vital Signs (units (un known) date) unknown) (unknown) (no (unknown) (unknown) WBC 14.1 H (units (unk nown) date) unknown) (unknown) (no (unknown) (unknown) WBC 8.4 (units (unkno wn) date) unknown) (unknown) (no (unknown) (unknown) WBC (units (unkno wn) date) unknown) (unknown) (no (unknown) (unknown) [Embedded Image (units (unknown) date) Not Available] unknown) (unknown) (no (unknown) (unknown) abdominal pain, (units (unknown) date) nuasea, or unknown) vomiting. (unknown) (no (unknown) (unknown) alcohol intake: (units (unknown) date) current unknown) (unknown) (no (unknown) (unknown) debility after (units (unknown) date) her left hip unknown) fracture and repair. (unknown) (no (unknown) (unknown) fracture with a (units (unknown) date) new urinary tract unknown) infection and severe protein malnutrition. (unknown) (no (unknown) (unknown) household (units (unkn own) date) members: none unknown) (unknown) (no (unknown) (unknown) malnutrition. (units ( unknown) date) unknown) (unknown) (no (unknown) (unknown) midnights. (units (unk nown) date) unknown) (unknown) (no (unknown) (unknown) mucosa pink and (units (unknown) date) moist unknown) (unknown) (no (unknown) (unknown) older than (units (unk nown) date) stated age. unknown) (unknown) (no (unknown) (unknown) risks of further (units (unknown) date) disease unknown) progression and this stay is expected to exceed 2 (unknown) (no (unknown) (unknown) today; this time (units (unknown) date) is exclusive of unknown) procedural time. Result panel 58 (unknown) (no date) (unknown) (unknown) (no value) (units (un known) unknown) (unknown) (no date) (unknown) (unknown) NO GROWTH (units (unk nown) AFTER 24 unknown) HOURS Result panel 59 (unknown) (no date) (unknown) (unknown) 0.9 % (unkn own) (unknown) (no date) (unknown) (unknown) 1.0 % (unkn own) (unknown) (no date) (unknown) (unknown) 100 /ul (unkn own) (unknown) (no date) (unknown) (unknown) 100 /ul (unkn own) (unknown) (no date) (unknown) (unknown) 103.5 fl (unkn own) (unknown) (no date) (unknown) (unknown) 1200 /ul (unkn own) (unknown) (no date) (unknown) (unknown) 13.1 % (unkn own) (unknown) (no date) (unknown) (unknown) 13.2 % (unkn own) (unknown) (no date) (unknown) (unknown) 19.1 % (unkn own) (unknown) (no date) (unknown) (unknown) 2.23 x10 6/ul (unkn own) (unknown) (no date) (unknown) (unknown) 23.1 % (unkn own) (unknown) (no date) (unknown) (unknown) 33.4 % (unkn own) (unknown) (no date) (unknown) (unknown) 34.5 pg (unkn own) (unknown) (no date) (unknown) (unknown) 395 x10 3/ul (unkn own) (unknown) (no date) (unknown) (unknown) 4300 /ul (unkn own) (unknown) (no date) (unknown) (unknown) 6.5 x10 3/ul (unkn own) (unknown) (no date) (unknown) (unknown) 65.8 % (unkn own) (unknown) (no date) (unknown) (unknown) 7.7 g/dl (unkn own) (unknown) (no date) (unknown) (unknown) 900 /ul (unkn own) Result panel 60 (unknown) (no (unknown) (unknown) <=0.12 (units (unkno wn) date) unknown) (unknown) (no (unknown) (unknown) <=0.25 (units (unkno wn) date) unknown) (unknown) (no (unknown) (unknown) <=0.5 (units (unkno wn) date) unknown) (unknown) (no (unknown) (unknown) <=1 (units (unkno wn) date) unknown) (unknown) (no (unknown) (unknown) <=16 (units (unkno wn) date) unknown) (unknown) (no (unknown) (unknown) <=2 (units (unkno wn) date) unknown) (unknown) (no (unknown) (unknown) <=20 (units (unkno wn) date) unknown) (unknown) (no (unknown) (unknown) <=4 (units (unkno wn) date) unknown) (unknown) (no (unknown) (unknown) 80,000 - 90,000 cfu/ml (unknown) date) (unknown) (no (unknown) (unknown) ESCCOLEscherichia (units (unknown) date) coli unknown) (unknown) (no (unknown) (unknown) No Further Workup (units (unknown) date) unknown) Result panel 61 (unknown) (no date) (unknown) (unknown) > 60 ml/min (unkn own) (unknown) (no date) (unknown) (unknown) > 60 ml/min (unkn own) (unknown) (no date) (unknown) (unknown) 0.32 mg/dl (unkn own) (unknown) (no date) (unknown) (unknown) 0.4 mg/dl (unkn own) (unknown) (no date) (unknown) (unknown) 0.8 (units unknown) (unknown) (unknown) (no date) (unknown) (unknown) 1.4 mg/dl (unkn own) (unknown) (no date) (unknown) (unknown) 101 mmol/l (unkn own) (unknown) (no date) (unknown) (unknown) 11 iu/l (unkn own) (unknown) (no date) (unknown) (unknown) 130 mmol/l (unkn own) (unknown) (no date) (unknown) (unknown) 16 iu/l (unkn own) (unknown) (no date) (unknown) (unknown) 2.3 g/dl (unkn own) (unknown) (no date) (unknown) (unknown) 2.9 g/dl (unkn own) (unknown) (no date) (unknown) (unknown) 24 mmol/l (unkn own) (unknown) (no date) (unknown) (unknown) 3 mg/dl (unkn own) (unknown) (no date) (unknown) (unknown) 3.6 mmol/l (unkn own) (unknown) (no date) (unknown) (unknown) 5.2 g/dl (unkn own) (unknown) (no date) (unknown) (unknown) 7.8 mg/dl (unkn own) (unknown) (no date) (unknown) (unknown) 88 mg/dl (unkn own) (unknown) (no date) (unknown) (unknown) 88 mg/dl (unkn own) (unknown) (no date) (unknown) (unknown) 89 u/l (unkn own) (unknown) (no date) (unknown) (unknown) 9.4 (units unknown) (unknown) Result panel 62 (unknown) (no (unknown) (unknown) (no value) (units (unk nown) date) unknown) (unknown) (no (unknown) (unknown) [id number] (units (unkn own) date) unknown) (unknown) (no (unknown) (unknown) 05/06/22 (units (unkno wn) date) unknown) (unknown) (no (unknown) (unknown) [address] [place] [address] (units (unknown) date) unknown) (unknown) (no (unknown) (unknown) Accession (units (unkn own) date) Number: unknown) [id number] (unknown) (no (unknown) (unknown) Age/Sex: 61 / F (units (unknown) date) Date of Service: unknown) (unknown) (no (unknown) (unknown) [place] (units ( unknown) date) [id number] unknown) (unknown) (no (unknown) (unknown) Approved by: (units (u nknown) date) marshal Lopez M.D. on 05/06/2022 at 16:58 (unknown) (no (unknown) (unknown) Bilateral lower (units (unknown) date) extremity soft unknown) tissue edema can be seen. (unknown) (no (unknown) (unknown) COMPARISON: (units (un known) date) None. unknown) (unknown) (no (unknown) (unknown) : 1960 (units (unknown) date) Acct:[id number] unknown) (unknown) (no (unknown) (unknown) Dictated by: (units (u nknown) date) beryl Lopez) Polly on 05/06/2022 at 16:58 (unknown) (no (unknown) (unknown) FINDINGS: (units (unkn own) date) unknown) (unknown) (no (unknown) (unknown) IMPRESSION: (units (un known) date) unknown) (unknown) (no (unknown) (unknown) INDICATIONS: (units (u nknown) date) RECEPT HIP unknown) SURERY. BILATERAL SWELLING. (unknown) (no (unknown) (unknown) [facility] (units (unknown) date) unknown) (unknown) (no (unknown) (unknown) Left: The common (units (unknown) date) femoral, femoral unknown) and popliteal veins are normally (unknown) (no (unknown) (unknown) Loc: AC 220-1 (units ( unknown) date) unknown) (unknown) (no (unknown) (unknown) Negative for (units (u nknown) date) deep venous unknown) thrombosis. (unknown) (no (unknown) (unknown) Ordering (units (unkno wn) date) Provider: unknown) Jameson Guevara D.O. (unknown) (no (unknown) (unknown) PROCEDURE: US (units ( unknown) date) PERIPH VENOUS LOW unknown) EXTREM BI (unknown) (no (unknown) (unknown) Patient: (units (unkno wn) date) Nichol Meng R unknown) MR#: M (unknown) (no (unknown) (unknown) Procedure: US (units ( unknown) date) periph venous low unknown) extrem bi (unknown) (no (unknown) (unknown) Real-time (units (unkn own) date) imaging, as well unknown) as color and pulse Doppler interrogation, were (unknown) (no (unknown) (unknown) Right: The (units (unk nown) date) common femoral, unknown) femoral and popliteal veins are normally (unknown) (no (unknown) (unknown) Signed (units (unkno wn) date) unknown) (unknown) (no (unknown) (unknown) TECHNIQUE: (units (unk nown) date) unknown) (unknown) (no (unknown) (unknown) Ultrasound (units (unk nown) date) Report unknown) (unknown) (no (unknown) (unknown) compressible, (units ( unknown) date) and free unknown) (unknown) (no (unknown) (unknown) compressible, (units ( unknown) date) and unknown) (unknown) (no (unknown) (unknown) compression (units (un known) date) unknown) (unknown) (no (unknown) (unknown) free of (units (unkno wn) date) intraluminal unknown) thrombus. Color and pulse Doppler demonstrate normal (unknown) (no (unknown) (unknown) intravascular (units ( unknown) date) flow. There is unknown) normal augmentation response to distal (unknown) (no (unknown) (unknown) maneuver. (units (unkn own) date) unknown) (unknown) (no (unknown) (unknown) of intraluminal (units (unknown) date) thrombus. Color unknown) and pulse Doppler demonstrate normal phasic (unknown) (no (unknown) (unknown) performed of (units (u nknown) date) unknown) (unknown) (no (unknown) (unknown) phasic (units (unkno wn) date) unknown) (unknown) (no (unknown) (unknown) the deep veins (units (unknown) date) of both legs from unknown) the inguinal ligament to the popliteal fossa. Result panel 63 (unknown) (no (unknown) (unknown) (no value) (units (unk nown) date) unknown) (unknown) (no (unknown) (unknown) (past 8 hours): (units (unknown) date) unknown) (unknown) (no (unknown) (unknown) * BMI is 16.9 (units ( unknown) date) unknown) (unknown) (no (unknown) (unknown) * CIWA protocol (units (unknown) date) ordered unknown) (unknown) (no (unknown) (unknown) * Chronic (units (unkn own) date) alcohol use unknown) likely contributing (unknown) (no (unknown) (unknown) * Continue (units (unk nown) date) multivitamins, unknown) thiamine and folic acid which will also help with (unknown) (no (unknown) (unknown) * (units (unkno wn) date) Dietary/nutrition unknown) al consult (unknown) (no (unknown) (unknown) * General diet (units (unknown) date) unknown) (unknown) (no (unknown) (unknown) * Pain control (units (unknown) date) with tyelenol, po unknown) hydrocodone, po oxycodone (unknown) (no (unknown) (unknown) * Patient denies (units (unknown) date) having issues in unknown) the past with withdrawal (unknown) (no (unknown) (unknown) * She is written (units (unknown) date) for a 14 mcg unknown) nicoderm patch (unknown) (no (unknown) (unknown) * c. diff PCR if (units (unknown) date) liquid stools, no unknown) current symptoms. (unknown) (no (unknown) (unknown) * continue (units (unk nown) date) physical therapy. unknown) (unknown) (no (unknown) (unknown) * culture with (units (unknown) date) wallace sensitive E. unknown) coli will narrow to oral therapy today. (unknown) (no (unknown) (unknown) * patient's (units (un known) date) severe protein unknown) calorie malnutrition contributes to weakness and (unknown) (no (unknown) (unknown) * plan for SNF (units (unknown) date) unknown) (unknown) (no (unknown) (unknown) [id number] (units (unkno wn) date) unknown) (unknown) (no (unknown) (unknown) 06:55 06:55 (units (un known) date) unknown) (unknown) (no (unknown) (unknown) 08:30 05/06/22 (units (unknown) date) unknown) (unknown) (no (unknown) (unknown) 05/06/22 06:55 (units (unknown) date) unknown) (unknown) (no (unknown) (unknown) 05/06/22 (units (unkno wn) date) 05/06/22 unknown) (unknown) (no (unknown) (unknown) 05/06/22 (units (unkno wn) date) unknown) (unknown) (no (unknown) (unknown) 11:40 (units (unkno wn) date) unknown) (unknown) (no (unknown) (unknown) ALT 11 (units (unkno wn) date) unknown) (unknown) (no (unknown) (unknown) AST 16 (units (unkno wn) date) unknown) (unknown) (no (unknown) (unknown) Abd: soft, (units (unk nown) date) non-tender, unknown) normoactive BTs (unknown) (no (unknown) (unknown) Age/Sex: 61 / F (units (unknown) date) unknown) (unknown) (no (unknown) (unknown) Albumin 2.3 L (units ( unknown) date) unknown) (unknown) (no (unknown) (unknown) Albumin/Globulin (units (unknown) date) Ratio 0.8 L unknown) (unknown) (no (unknown) (unknown) Alcohol (units (unkno wn) date) dependence, unknown) chronic and longstanding (unknown) (no (unknown) (unknown) Alkaline (units (unkno wn) date) Phosphatase 89 unknown) (unknown) (no (unknown) (unknown) Assessment + (units (u nknown) date) Plan narrative: unknown) (unknown) (no (unknown) (unknown) Assessment + (units (u nknown) date) Plan unknown) (unknown) (no (unknown) (unknown) BUN 3 L (units (unkno wn) date) unknown) (unknown) (no (unknown) (unknown) BUN/Creatinine (units (unknown) date) Ratio 9.4 unknown) (unknown) (no (unknown) (unknown) Baso # (Auto) (units ( unknown) date) 100 unknown) (unknown) (no (unknown) (unknown) Baso % (Auto) (units ( unknown) date) 1.0 unknown) (unknown) (no (unknown) (unknown) Blood Pressure (units (unknown) date) 142/79 H 139/75 unknown) (unknown) (no (unknown) (unknown) COVID-19 status: (units (unknown) date) Negative unknown) (unknown) (no (unknown) (unknown) COVID-19 (units (unkno wn) date) unknown) (unknown) (no (unknown) (unknown) CV: RRR, no (units (un known) date) murmur or rubs unknown) (unknown) (no (unknown) (unknown) Calcium 7.8 L (units ( unknown) date) unknown) (unknown) (no (unknown) (unknown) Carbon Dioxide (units (unknown) date) 24 unknown) (unknown) (no (unknown) (unknown) Chloride 101 (units (u nknown) date) unknown) (unknown) (no (unknown) (unknown) Code status: (units (u nknown) date) Full code as unknown) discussed with the patient who identifies her son (unknown) (no (unknown) (unknown) Consultants (units (un known) date) None. unknown) (unknown) (no (unknown) (unknown) Creatinine 0.32 (units (unknown) date) L unknown) (unknown) (no (unknown) (unknown) Critical Care (units ( unknown) date) time: unknown) (unknown) (no (unknown) (unknown) : 1960 (units (unknown) date) Acct:[id number] unknown) (unknown) (no (unknown) (unknown) Date Patient (units (u nknown) date) Seen: 05/06/22 unknown) (unknown) (no (unknown) (unknown) Date of Service: (units (unknown) date) 05/04/22 unknown) (unknown) (no (unknown) (unknown) Dispo: Likely (units ( unknown) date) discharge to unknown) rehab (unknown) (no (unknown) (unknown) Eos # (Auto) 100 (units (unknown) date) unknown) (unknown) (no (unknown) (unknown) Eos % (Auto) 0.9 (units (unknown) date) L unknown) (unknown) (no (unknown) (unknown) Estimated GFR > (units (unknown) date) 60 unknown) (unknown) (no (unknown) (unknown) Exam Narrative: (units (unknown) date) unknown) (unknown) (no (unknown) (unknown) Exam (units (unkno wn) date) unknown) (unknown) (no (unknown) (unknown) Extremities: LLE (units (unknown) date) edema and unknown) swelling compared to RLE. + Laure's (unknown) (no (unknown) (unknown) Gen: Alert, (units (un known) date) oriented, unknown) cachectic appearing 61 y.o. female, appears (unknown) (no (unknown) (unknown) Globulin 2.9 (units (u nknown) date) unknown) (unknown) (no (unknown) (unknown) Glucose 88 (units (unk nown) date) unknown) (unknown) (no (unknown) (unknown) HEENT: (units (unkno wn) date) normocephalic, unknown) atraumatic, conjunctiva clear, sclera non-icteric, oral (unknown) (no (unknown) (unknown) Hct 23.1 L (units (unk nown) date) unknown) (unknown) (no (unknown) (unknown) Hgb 7.7 L (units (unkn own) date) unknown) (unknown) (no (unknown) (unknown) History of (units (unk nown) date) clostridium unknown) difficile (unknown) (no (unknown) (unknown) I spent a total (units (unknown) date) of [] minutes of unknown) critical care time on this patient's care (unknown) (no (unknown) (unknown) Interval (units (unkno wn) date) history: unknown) (unknown) (no (unknown) (unknown) [facility] (units (unknown) date) [address] unknown) [place] [address] (unknown) (no (unknown) (unknown) Jono her (units (unkn own) date) surrogate and unknown) POA. (unknown) (no (unknown) (unknown) Laboratory (units (unk nown) date) Results - last 24 unknown) hr (unknown) (no (unknown) (unknown) Labs (units (unkno wn) date) unknown) (unknown) (no (unknown) (unknown) Labs: (units (unkno wn) date) unknown) (unknown) (no (unknown) (unknown) Nichol Meng (units (unknown) date) is admitted due unknown) to failed discharge home after recent left hip (unknown) (no (unknown) (unknown) Lymph # (Auto) (units (unknown) date) 1200 unknown) (unknown) (no (unknown) (unknown) Lymph % (Auto) (units (unknown) date) 19.1 L unknown) (unknown) (no (unknown) (unknown) MCH 34.5 H (units (unk nown) date) unknown) (unknown) (no (unknown) (unknown) MCHC 33.4 (units (unkn own) date) unknown) (unknown) (no (unknown) (unknown) MCV 103.5 H (units (un known) date) unknown) (unknown) (no (unknown) (unknown) Magnesium 1.4 L (units (unknown) date) unknown) (unknown) (no (unknown) (unknown) [place] # (Auto) (units ( unknown) date) 900 unknown) (unknown) (no (unknown) (unknown) [place] % (Auto) (units ( unknown) date) 13.2 unknown) (unknown) (no (unknown) (unknown) Narrative (units (unkn own) date) unknown) (unknown) (no (unknown) (unknown) Neck: supple, (units ( unknown) date) full ROM, no JVD, unknown) trachea is midline (unknown) (no (unknown) (unknown) Neuro: Alert and (units (unknown) date) oriented X 4 w/no unknown) focal deficits. (unknown) (no (unknown) (unknown) Neut # (Auto) (units ( unknown) date) 4300 unknown) (unknown) (no (unknown) (unknown) Neut % (Auto) (units ( unknown) date) 65.8 unknown) (unknown) (no (unknown) (unknown) Objective (units (unkn own) date) unknown) (unknown) (no (unknown) (unknown) Oxygen Delivery (units (unknown) date) Method Room Air unknown) (unknown) (no (unknown) (unknown) Oxygen Flow Rate (units (unknown) date) 0 unknown) (unknown) (no (unknown) (unknown) PFSH (units (unkno wn) date) unknown) (unknown) (no (unknown) (unknown) POD#4 left (units (unk nown) date) introchanteric unknown) hip repair (unknown) (no (unknown) (unknown) Patient is (units (unk n) date) admitted to the unknown) inpatient service due to the severity of disease, (unknown) (no (unknown) (unknown) Patient: (units (unkno wn) date) Nichol Meng unknown) MR#: [id number] (unknown) (no (unknown) (unknown) Plt Count 395 (units ( unknown) date) unknown) (unknown) (no (unknown) (unknown) Potassium 3.6 (units ( unknown) date) unknown) (unknown) (no (unknown) (unknown) Progress Note (units ( unknown) date) unknown) (unknown) (no (unknown) (unknown) Provider: (units (unkn own) date) Jameson Guevara unknown) D.O. (unknown) (no (unknown) (unknown) Psyche: calm and (units (unknown) date) cooperative with unknown) stable behavior. (unknown) (no (unknown) (unknown) Pulse Oximetry (units (unknown) date) 100 99 unknown) (unknown) (no (unknown) (unknown) Pulse Rate 82 84 (units (unknown) date) unknown) (unknown) (no (unknown) (unknown) RBC 2.23 L (units (unk nown) date) unknown) (unknown) (no (unknown) (unknown) RDW 13.1 (units (unkno wn) date) unknown) (unknown) (no (unknown) (unknown) Resp: Lungs CTA, (units (unknown) date) non-labored unknown) breathing (unknown) (no (unknown) (unknown) Respiratory Rate (units (unknown) date) 82 H 18 unknown) (unknown) (no (unknown) (unknown) Result Diagrams: (units (unknown) date) unknown) (unknown) (no (unknown) (unknown) Result date/Date (units (unknown) date) tested (Pos, unknown) Neg/Pending): 05/04/22 (unknown) (no (unknown) (unknown) SCDs. (units (unkno wn) date) unknown) (unknown) (no (unknown) (unknown) Severe protein (units (unknown) date) calorie malnution unknown) (unknown) (no (unknown) (unknown) She reports hip (units (unknown) date) pain is unknown) adequately controlled today. Denies chest pain, (unknown) (no (unknown) (unknown) Signed By: (units (unk nown) date) unknown) (unknown) (no (unknown) (unknown) Skin: no lesions (units (unknown) date) or rashes, dry unknown) and intact (unknown) (no (unknown) (unknown) Smoking Status: (units (unknown) date) Current every day unknown) smoker (unknown) (no (unknown) (unknown) Social History (units (unknown) date) (Reviewed unknown) 05/04/22 @ 19:33 by Roe uS PA-C) (unknown) (no (unknown) (unknown) Sodium 130 L (units (u nknown) date) unknown) (unknown) (no (unknown) (unknown) Status post (units (un known) date) appendectomy unknown) (unknown) (no (unknown) (unknown) Status post (units (un known) date) breast lumpectomy unknown) (unknown) (no (unknown) (unknown) Status post (units (un known) date) hysterectomy unknown) (unknown) (no (unknown) (unknown) Subjective (units (unk nown) date) unknown) (unknown) (no (unknown) (unknown) Surgical History (units (unknown) date) (Reviewed unknown) 05/04/22 @ 19:33 by Roe Su PA-C) (unknown) (no (unknown) (unknown) Temperature 97 F (units (unknown) date) L 96.8 F L unknown) (unknown) (no (unknown) (unknown) Time Spent With (units (unknown) date) Patient unknown) (unknown) (no (unknown) (unknown) Tobacco (units (unkno wn) date) dependence, unknown) chronic and longstanding (unknown) (no (unknown) (unknown) Total Bilirubin (units (unknown) date) 0.4 unknown) (unknown) (no (unknown) (unknown) Total Protein (units ( unknown) date) 5.2 L unknown) (unknown) (no (unknown) (unknown) Urinary tract (units ( unknown) date) infection, acute unknown) and present on admission (unknown) (no (unknown) (unknown) VTE Prophylaxis: (units (unknown) date) Wells risk score unknown) 3 Enoxaparin 40 mg subQ once daily Bilateral (unknown) (no (unknown) (unknown) Vital Signs (units (un known) date) unknown) (unknown) (no (unknown) (unknown) WBC 6.5 (units (unkno wn) date) unknown) (unknown) (no (unknown) (unknown) [Embedded Image (units (unknown) date) Not Available] unknown) (unknown) (no (unknown) (unknown) abdominal pain, (units (unknown) date) nuasea, or unknown) vomiting. Does have new LLE swelling today which is (unknown) (no (unknown) (unknown) alcohol intake: (units (unknown) date) current unknown) (unknown) (no (unknown) (unknown) debility after (units (unknown) date) her left hip unknown) fracture and repair. (unknown) (no (unknown) (unknown) fracture with a (units (unknown) date) new urinary tract unknown) infection and severe protein malnutrition. (unknown) (no (unknown) (unknown) household (units (unkn own) date) members: none unknown) (unknown) (no (unknown) (unknown) malnutrition. (units ( unknown) date) unknown) (unknown) (no (unknown) (unknown) midnights. (units (unk nown) date) unknown) (unknown) (no (unknown) (unknown) mucosa pink and (units (unknown) date) moist unknown) (unknown) (no (unknown) (unknown) new. (units (unkno wn) date) unknown) (unknown) (no (unknown) (unknown) older than (units (unk nown) date) stated age. unknown) (unknown) (no (unknown) (unknown) risks of further (units (unknown) date) disease unknown) progression and this stay is expected to exceed 2 (unknown) (no (unknown) (unknown) today; this time (units (unknown) date) is exclusive of unknown) procedural time. Result panel 64 (unknown) (no (unknown) (unknown) (no value) (units (unk nown) date) unknown) (unknown) (no (unknown) (unknown) (past 8 hours): (units (unknown) date) unknown) (unknown) (no (unknown) (unknown) * Apprecite (units (un known) date) Dietary/nutrition unknown) al consult, continue dietary supplementation. (unknown) (no (unknown) (unknown) * BMI is 16.9 (units ( unknown) date) unknown) (unknown) (no (unknown) (unknown) * CIWA protocol (units (unknown) date) ordered, no unknown) recent symptoms. (unknown) (no (unknown) (unknown) * Chronic (units (unkn own) date) alcohol use unknown) likely contributing (unknown) (no (unknown) (unknown) * Continue (units (unk nown) date) multivitamins, unknown) thiamine and folic acid which will also help with (unknown) (no (unknown) (unknown) * Pain control (units (unknown) date) with tyelenol, po unknown) hydrocodone, po oxycodone (unknown) (no (unknown) (unknown) * Patient denies (units (unknown) date) having issues in unknown) the past with withdrawal (unknown) (no (unknown) (unknown) * She is written (units (unknown) date) for a 14 mcg unknown) nicoderm patch (unknown) (no (unknown) (unknown) * c. diff PCR if (units (unknown) date) liquid stools, no unknown) current symptoms. (unknown) (no (unknown) (unknown) * continue (units (unk nown) date) physical therapy. unknown) (unknown) (no (unknown) (unknown) * culture with (units (unknown) date) wallace sensitive E. unknown) coli will narrow to oral therapy today with (unknown) (no (unknown) (unknown) * patient's (units (un known) date) severe protein unknown) calorie malnutrition contributes to weakness and (unknown) (no (unknown) (unknown) * plan for SNF (units (unknown) date) unknown) (unknown) (no (unknown) (unknown) - may be from (units ( unknown) date) recent surgery, unknown) however will rule out DVT. (unknown) (no (unknown) (unknown) [id number] (units (unkno wn) date) unknown) (unknown) (no (unknown) (unknown) 06:55 06:55 (units (un known) date) unknown) (unknown) (no (unknown) (unknown) 08:30 05/06/22 (units (unknown) date) unknown) (unknown) (no (unknown) (unknown) 05/06/22 06:55 (units (unknown) date) unknown) (unknown) (no (unknown) (unknown) 05/06/22 (units (unkno wn) date) 05/06/22 unknown) (unknown) (no (unknown) (unknown) 05/06/22 1526 (units ( unknown) date) unknown) (unknown) (no (unknown) (unknown) 05/06/22 (units (unkno wn) date) unknown) (unknown) (no (unknown) (unknown) 11:40 (units (unkno wn) date) unknown) (unknown) (no (unknown) (unknown) ALT 11 (units (unkno wn) date) unknown) (unknown) (no (unknown) (unknown) AST 16 (units (unkno wn) date) unknown) (unknown) (no (unknown) (unknown) Abd: soft, (units (unk nown) date) non-tender, unknown) normoactive BTs (unknown) (no (unknown) (unknown) Age/Sex: 61 / F (units (unknown) date) unknown) (unknown) (no (unknown) (unknown) Albumin 2.3 L (units ( unknown) date) unknown) (unknown) (no (unknown) (unknown) Albumin/Globulin (units (unknown) date) Ratio 0.8 L unknown) (unknown) (no (unknown) (unknown) Alcohol (units (unkno wn) date) dependence, unknown) chronic and longstanding (unknown) (no (unknown) (unknown) Alkaline (units (unkno wn) date) Phosphatase 89 unknown) (unknown) (no (unknown) (unknown) Assessment + (units (u nknown) date) Plan narrative: unknown) (unknown) (no (unknown) (unknown) Assessment + (units (u nknown) date) Plan unknown) (unknown) (no (unknown) (unknown) BUN 3 L (units (unkno wn) date) unknown) (unknown) (no (unknown) (unknown) BUN/Creatinine (units (unknown) date) Ratio 9.4 unknown) (unknown) (no (unknown) (unknown) Baso # (Auto) (units ( unknown) date) 100 unknown) (unknown) (no (unknown) (unknown) Baso % (Auto) (units ( unknown) date) 1.0 unknown) (unknown) (no (unknown) (unknown) Blood Pressure (units (unknown) date) 142/79 H 139/75 unknown) (unknown) (no (unknown) (unknown) COVID-19 status: (units (unknown) date) Negative unknown) (unknown) (no (unknown) (unknown) COVID-19 (units (unkno wn) date) unknown) (unknown) (no (unknown) (unknown) CV: RRR, no (units (un known) date) murmur or rubs unknown) (unknown) (no (unknown) (unknown) Calcium 7.8 L (units ( unknown) date) unknown) (unknown) (no (unknown) (unknown) Carbon Dioxide (units (unknown) date) 24 unknown) (unknown) (no (unknown) (unknown) Chloride 101 (units (u nknown) date) unknown) (unknown) (no (unknown) (unknown) Code status: (units (u nknown) date) Full code as unknown) discussed with the patient who identifies her son (unknown) (no (unknown) (unknown) Creatinine 0.32 (units (unknown) date) L unknown) (unknown) (no (unknown) (unknown) Critical Care (units ( unknown) date) time: unknown) (unknown) (no (unknown) (unknown) : 1960 (units (unknown) date) Acct:[id number] unknown) (unknown) (no (unknown) (unknown) Date Patient (units (u nknown) date) Seen: 05/06/22 unknown) (unknown) (no (unknown) (unknown) Date of Service: (units (unknown) date) 05/04/22 unknown) (unknown) (no (unknown) (unknown) Dispo: pending (units (unknown) date) SNF. unknown) (unknown) (no (unknown) (unknown) Eos # (Auto) 100 (units (unknown) date) unknown) (unknown) (no (unknown) (unknown) Eos % (Auto) 0.9 (units (unknown) date) L unknown) (unknown) (no (unknown) (unknown) Estimated GFR > (units (unknown) date) 60 unknown) (unknown) (no (unknown) (unknown) Exam Narrative: (units (unknown) date) unknown) (unknown) (no (unknown) (unknown) Exam (units (unkno wn) date) unknown) (unknown) (no (unknown) (unknown) Extremities: LLE (units (unknown) date) edema and unknown) swelling compared to RLE. + Laure's (unknown) (no (unknown) (unknown) Gen: Alert, (units (un known) date) oriented, unknown) cachectic appearing 61 y.o. female, appears (unknown) (no (unknown) (unknown) Globulin 2.9 (units (u nknown) date) unknown) (unknown) (no (unknown) (unknown) Glucose 88 (units (unk nown) date) unknown) (unknown) (no (unknown) (unknown) HEENT: (units (unkno wn) date) normocephalic, unknown) atraumatic, conjunctiva clear, sclera non-icteric, oral (unknown) (no (unknown) (unknown) Hct 23.1 L (units (unk nown) date) unknown) (unknown) (no (unknown) (unknown) Hgb 7.7 L (units (unkn own) date) unknown) (unknown) (no (unknown) (unknown) History of (units (unk nown) date) clostridium unknown) difficile (unknown) (no (unknown) (unknown) I spent a total (units (unknown) date) of [] minutes of unknown) critical care time on this patient's care (unknown) (no (unknown) (unknown) Interval (units (unkno wn) date) history: unknown) (unknown) (no (unknown) (unknown) [facility] (units (unknown) date) [address]) [place] [address] (unknown) (no (unknown) (unknown) Jono burton (units (unkn own) date) surrogate and unknown) POA. (unknown) (no (unknown) (unknown) LLE swelling (units (u nknown) date) unknown) (unknown) (no (unknown) (unknown) Laboratory (units (unk nown) date) Results - last 24 unknown) hr (unknown) (no (unknown) (unknown) Labs (units (unkno wn) date) unknown) (unknown) (no (unknown) (unknown) Labs: (units (unkno wn) date) unknown) (unknown) (no (unknown) (unknown) Nichol Meng (units (unknown) date) is admitted due unknown) to failed discharge home after recent left hip (unknown) (no (unknown) (unknown) Lymph # (Auto) (units (unknown) date) 1200 unknown) (unknown) (no (unknown) (unknown) Lymph % (Auto) (units (unknown) date) 19.1 L unknown) (unknown) (no (unknown) (unknown) MCH 34.5 H (units (unk nown) date) unknown) (unknown) (no (unknown) (unknown) MCHC 33.4 (units (unkn own) date) unknown) (unknown) (no (unknown) (unknown) MCV 103.5 H (units (un known) date) unknown) (unknown) (no (unknown) (unknown) Magnesium 1.4 L (units (unknown) date) unknown) (unknown) (no (unknown) (unknown) [place] # (Auto) (units ( unknown) date) 900 unknown) (unknown) (no (unknown) (unknown) [place] % (Auto) (units ( unknown) date) 13.2 unknown) (unknown) (no (unknown) (unknown) Narrative (units (unkn own) date) unknown) (unknown) (no (unknown) (unknown) Neck: supple, (units ( unknown) date) full ROM, no JVD, unknown) trachea is midline (unknown) (no (unknown) (unknown) Neuro: Alert and (units (unknown) date) oriented X 4 w/no unknown) focal deficits. (unknown) (no (unknown) (unknown) Neut # (Auto) (units ( unknown) date) 4300 unknown) (unknown) (no (unknown) (unknown) Neut % (Auto) (units ( unknown) date) 65.8 unknown) (unknown) (no (unknown) (unknown) Objective (units (unkn own) date) unknown) (unknown) (no (unknown) (unknown) Oxygen Delivery (units (unknown) date) Method Room Air unknown) (unknown) (no (unknown) (unknown) Oxygen Flow Rate (units (unknown) date) 0 unknown) (unknown) (no (unknown) (unknown) PFSH (units (unkno wn) date) unknown) (unknown) (no (unknown) (unknown) Patient: (units (unkno wn) date) Nichol Meng unknown) MR#: [id number] (unknown) (no (unknown) (unknown) Plt Count 395 (units ( unknown) date) unknown) (unknown) (no (unknown) (unknown) Potassium 3.6 (units ( unknown) date) unknown) (unknown) (no (unknown) (unknown) Progress Note (units ( unknown) date) unknown) (unknown) (no (unknown) (unknown) Provider: (units (unkn own) date) Jameson Guevara unknown) D.O. (unknown) (no (unknown) (unknown) Psyche: calm and (units (unknown) date) cooperative with unknown) stable behavior. (unknown) (no (unknown) (unknown) Pulse Oximetry (units (unknown) date) 100 99 unknown) (unknown) (no (unknown) (unknown) Pulse Rate 82 84 (units (unknown) date) unknown) (unknown) (no (unknown) (unknown) RBC 2.23 L (units (unk nown) date) unknown) (unknown) (no (unknown) (unknown) RDW 13.1 (units (unkno wn) date) unknown) (unknown) (no (unknown) (unknown) Resp: Lungs CTA, (units (unknown) date) non-labored unknown) breathing (unknown) (no (unknown) (unknown) Respiratory Rate (units (unknown) date) 82 H 18 unknown) (unknown) (no (unknown) (unknown) Result Diagrams: (units (unknown) date) unknown) (unknown) (no (unknown) (unknown) Result date/Date (units (unknown) date) tested (Pos, unknown) Neg/Pending): 05/04/22 (unknown) (no (unknown) (unknown) S/p left (units (unkno wn) date) introchanteric unknown) hip repair (unknown) (no (unknown) (unknown) SCDs. (units (unkno wn) date) unknown) (unknown) (no (unknown) (unknown) Severe protein (units (unknown) date) calorie malnution unknown) (unknown) (no (unknown) (unknown) She reports hip (units (unknown) date) pain is unknown) adequately controlled today. Denies chest pain, (unknown) (no (unknown) (unknown) Signed (units (unkno wn) date) By:<Electronicall unknown) y signed by Jameson Guevara D.O.> (unknown) (no (unknown) (unknown) Skin: no lesions (units (unknown) date) or rashes, dry unknown) and intact (unknown) (no (unknown) (unknown) Smoking Status: (units (unknown) date) Current every day unknown) smoker (unknown) (no (unknown) (unknown) Social History (units (unknown) date) (Reviewed unknown) 05/04/22 @ 19:33 by Roe Su PA-C) (unknown) (no (unknown) (unknown) Sodium 130 L (units (u nknown) date) unknown) (unknown) (no (unknown) (unknown) Status post (units (un known) date) appendectomy unknown) (unknown) (no (unknown) (unknown) Status post (units (un known) date) breast lumpectomy unknown) (unknown) (no (unknown) (unknown) Status post (units (un known) date) hysterectomy unknown) (unknown) (no (unknown) (unknown) Subjective (units (unk nown) date) unknown) (unknown) (no (unknown) (unknown) Surgical History (units (unknown) date) (Reviewed unknown) 05/04/22 @ 19:33 by Roe Su PA-C) (unknown) (no (unknown) (unknown) Temperature 97 F (units (unknown) date) L 96.8 F L unknown) (unknown) (no (unknown) (unknown) Time Spent With (units (unknown) date) Patient unknown) (unknown) (no (unknown) (unknown) Tobacco (units (unkno wn) date) dependence, unknown) chronic and longstanding (unknown) (no (unknown) (unknown) Total Bilirubin (units (unknown) date) 0.4 unknown) (unknown) (no (unknown) (unknown) Total Protein (units ( unknown) date) 5.2 L unknown) (unknown) (no (unknown) (unknown) Urinary tract (units ( unknown) date) infection, acute unknown) and present on admission (unknown) (no (unknown) (unknown) VTE Prophylaxis: (units (unknown) date) Wells risk score unknown) 3 Enoxaparin 40 mg subQ once daily Bilateral (unknown) (no (unknown) (unknown) Vital Signs (units (un known) date) unknown) (unknown) (no (unknown) (unknown) WBC 6.5 (units (unkno wn) date) unknown) (unknown) (no (unknown) (unknown) [Embedded Image (units (unknown) date) Not Available] unknown) (unknown) (no (unknown) (unknown) abdominal pain, (units (unknown) date) nuasea, or unknown) vomiting. Does have new LLE swelling today which is (unknown) (no (unknown) (unknown) alcohol intake: (units (unknown) date) current unknown) (unknown) (no (unknown) (unknown) debility after (units (unknown) date) her left hip unknown) fracture and repair. (unknown) (no (unknown) (unknown) fracture with a (units (unknown) date) new urinary tract unknown) infection and severe protein malnutrition. (unknown) (no (unknown) (unknown) household (units (unkn own) date) members: none unknown) (unknown) (no (unknown) (unknown) macrobid given (units (unknown) date) pencillin unknown) allergy. (unknown) (no (unknown) (unknown) malnutrition. (units ( unknown) date) unknown) (unknown) (no (unknown) (unknown) mucosa pink and (units (unknown) date) moist unknown) (unknown) (no (unknown) (unknown) new. (units (unkno wn) date) unknown) (unknown) (no (unknown) (unknown) older than (units (unk nown) date) stated age. unknown) (unknown) (no (unknown) (unknown) today; this time (units (unknown) date) is exclusive of unknown) procedural time. Result panel 65 (unknown) (no date) (unknown) (unknown) (no value) (units (un known) unknown) (unknown) (no date) (unknown) (unknown) NO GROWTH (units (unk nown) AFTER 48 unknown) HOURS Result panel 66 (unknown) (no date) (unknown) (unknown) 0.7 % (unkn own) (unknown) (no date) (unknown) (unknown) 0.7 % (unkn own) (unknown) (no date) (unknown) (unknown) 100 /ul (unkn own) (unknown) (no date) (unknown) (unknown) 100 /ul (unkn own) (unknown) (no date) (unknown) (unknown) 103.4 fl (unkn own) (unknown) (no date) (unknown) (unknown) 1200 /ul (unkn own) (unknown) (no date) (unknown) (unknown) 13.2 % (unkn own) (unknown) (no date) (unknown) (unknown) 13.8 % (unkn own) (unknown) (no date) (unknown) (unknown) 1400 /ul (unkn own) (unknown) (no date) (unknown) (unknown) 16.2 % (unkn own) (unknown) (no date) (unknown) (unknown) 2.32 x10 6/ul (unkn own) (unknown) (no date) (unknown) (unknown) 24.0 % (unkn own) (unknown) (no date) (unknown) (unknown) 34.0 % (unkn own) (unknown) (no date) (unknown) (unknown) 35.1 pg (unkn own) (unknown) (no date) (unknown) (unknown) 458 x10 3/ul (unkn own) (unknown) (no date) (unknown) (unknown) 6100 /ul (unkn own) (unknown) (no date) (unknown) (unknown) 68.6 % (unkn own) (unknown) (no date) (unknown) (unknown) 8.2 g/dl (unkn own) (unknown) (no date) (unknown) (unknown) 8.9 x10 3/ul (unkn own) Result panel 67 (unknown) (no date) (unknown) (unknown) > 60 ml/min (unkn own) (unknown) (no date) (unknown) (unknown) > 60 ml/min (unkn own) (unknown) (no date) (unknown) (unknown) 0.3 mg/dl (unkn own) (unknown) (no date) (unknown) (unknown) 0.38 mg/dl (unkn own) (unknown) (no date) (unknown) (unknown) 0.8 (units unknown) (unknown) (unknown) (no date) (unknown) (unknown) 1.4 mg/dl (unkn own) (unknown) (no date) (unknown) (unknown) 100 mmol/l (unkn own) (unknown) (no date) (unknown) (unknown) 105 u/l (unkn own) (unknown) (no date) (unknown) (unknown) 128 mmol/l (unkn own) (unknown) (no date) (unknown) (unknown) 13 iu/l (unkn own) (unknown) (no date) (unknown) (unknown) 18.4 (units unknown) (unknown) (unknown) (no date) (unknown) (unknown) 2.5 g/dl (unkn own) (unknown) (no date) (unknown) (unknown) 20 iu/l (unkn own) (unknown) (no date) (unknown) (unknown) 27 mmol/l (unkn own) (unknown) (no date) (unknown) (unknown) 3.0 g/dl (unkn own) (unknown) (no date) (unknown) (unknown) 3.4 mmol/l (unkn own) (unknown) (no date) (unknown) (unknown) 5.5 g/dl (unkn own) (unknown) (no date) (unknown) (unknown) 7 mg/dl (unkn own) (unknown) (no date) (unknown) (unknown) 8.1 mg/dl (unkn own) (unknown) (no date) (unknown) (unknown) 91 mg/dl (unkn own) (unknown) (no date) (unknown) (unknown) 91 mg/dl (unkn own) Result panel 68 (unknown) (no date) (unknown) (unknown) (no value) (units (un known) unknown) (unknown) (no date) (unknown) (unknown) No growth. (units (un known) unknown) (unknown) (no date) (unknown) (unknown) No organisms (units ( unknown) seen unknown) (unknown) (no date) (unknown) (unknown) No organisms (units ( unknown) seen unknown) (unknown) (no date) (unknown) (unknown) Occasional WBC (units (unknown) seen unknown) (unknown) (no date) (unknown) (unknown) Test not (units (unkn own) performed unknown) Result panel 69 (unknown) (no (unknown) (unknown) (no value) (units (unk nown) date) unknown) (unknown) (no (unknown) (unknown) (past 8 hours): (units (unknown) date) unknown) (unknown) (no (unknown) (unknown) * Apprecite (units (un known) date) Dietary/nutritional unknown) consult, continue dietary supplementation. (unknown) (no (unknown) (unknown) * BMI is 16.9 (units ( unknown) date) unknown) (unknown) (no (unknown) (unknown) * CIWA protocol (units (unknown) date) ordered, no symptoms unknown) during the course of her admission (unknown) (no (unknown) (unknown) * Chronic alcohol (units (unknown) date) use likely unknown) contributing (unknown) (no (unknown) (unknown) * Continue (units (unk nown) date) multivitamins, unknown) thiamine and folic acid which will also help with (unknown) (no (unknown) (unknown) * Pain control with (unit s (unknown) date) tyelenol, po unknown) hydrocodone, po oxycodone (unknown) (no (unknown) (unknown) * Patient denies (units (unknown) date) having issues in the unknown) past with withdrawal (unknown) (no (unknown) (unknown) * She is written (units (unknown) date) for a 14 mcg unknown) nicoderm patch (unknown) (no (unknown) (unknown) * Transfer for SNF (units (unknown) date) for continued unknown) therapies at discharge. (unknown) (no (unknown) (unknown) * culture with wallace (units (unknown) date) sensitive E. coli unknown) and was started on ceftriaxone, then (unknown) (no (unknown) (unknown) * no symptoms (units ( unknown) date) during admission. unknown) (unknown) (no (unknown) (unknown) * patient's severe (units (unknown) date) protein calorie unknown) malnutrition contributes to weakness and (unknown) (no (unknown) (unknown) [id number] (units (unkno wn) date) unknown) (unknown) (no (unknown) (unknown) 04:00 05/07/22 (units (unknown) date) unknown) (unknown) (no (unknown) (unknown) 05:30 05:48 (units (un known) date) unknown) (unknown) (no (unknown) (unknown) 07:30 (units (unkno wn) date) unknown) (unknown) (no (unknown) (unknown) 1 mg PO DAILY Qty: (units (unknown) date) 30 0RF unknown) (unknown) (no (unknown) (unknown) 05/04/22 16:56 (units (unknown) date) unknown) (unknown) (no (unknown) (unknown) 05/04/22 19:32 (units (unknown) date) unknown) (unknown) (no (unknown) (unknown) 05/04/22 19:33 (units (unknown) date) unknown) (unknown) (no (unknown) (unknown) 05/05/22 09:26 (units (unknown) date) unknown) (unknown) (no (unknown) (unknown) 05/05/22 12:19 (units (unknown) date) unknown) (unknown) (no (unknown) (unknown) 05/07/22 05:30 (units (unknown) date) unknown) (unknown) (no (unknown) (unknown) 05/07/22 05:48 (units (unknown) date) unknown) (unknown) (no (unknown) (unknown) 05/07/22 05/07/22 (units (unknown) date) unknown) (unknown) (no (unknown) (unknown) 05/07/22 (units (unkno wn) date) unknown) (unknown) (no (unknown) (unknown) 100 mg PO DAILY (units (unknown) date) Qty: 30 0RF unknown) (unknown) (no (unknown) (unknown) 40 mg SUBCUT DAILY (units (unknown) date) 28 Days Qty: 12 0RF unknown) (unknown) (no (unknown) (unknown) 5 mg PO Q4HR PRN (units (unknown) date) (Reason: Pain, unknown) Moderate (4-6)) Qty: 30 0RF (unknown) (no (unknown) (unknown) 650 mg PO Q6HR PRN (units (unknown) date) (Reason: Fever/Mild unknown) Pain (1-3)) Qty: 30 0RF (unknown) (no (unknown) (unknown) 8.6 mg PO BID PRN (units (unknown) date) (Reason: unknown) Constipation) Qty: 30 0RF (unknown) (no (unknown) (unknown) ?- may be from (units (unknown) date) recent surgery, [place] unknown) was negative for DVT. (unknown) (no (unknown) (unknown) ALT 13 (units (unkno wn) date) unknown) (unknown) (no (unknown) (unknown) AST 20 (units (unkno wn) date) unknown) (unknown) (no (unknown) (unknown) Abd: soft, (units (unk nown) date) non-tender, unknown) normoactive BTs (unknown) (no (unknown) (unknown) Age/Sex: 61 / F (units (unknown) date) unknown) (unknown) (no (unknown) (unknown) Albumin 2.5 L (units ( unknown) date) unknown) (unknown) (no (unknown) (unknown) Albumin/Globulin (units (unknown) date) Ratio 0.8 L unknown) (unknown) (no (unknown) (unknown) Alcohol dependence, (unit s (unknown) date) chronic and unknown) longstanding (unknown) (no (unknown) (unknown) Alkaline (units (unkno wn) date) Phosphatase 105 unknown) (unknown) (no (unknown) (unknown) Attending Provider: (unit s (unknown) date) Elvia Gtz unknown) (unknown) (no (unknown) (unknown) BUN 7 (units (unkno wn) date) unknown) (unknown) (no (unknown) (unknown) BUN/Creatinine (units (unknown) date) Ratio 18.4 unknown) (unknown) (no (unknown) (unknown) Baso # (Auto) 100 (units (unknown) date) unknown) (unknown) (no (unknown) (unknown) Baso % (Auto) 0.7 (units (unknown) date) unknown) (unknown) (no (unknown) (unknown) Blood Pressure (units (unknown) date) 148/71 H 139/82 unknown) (unknown) (no (unknown) (unknown) CV: RRR, no murmur (units (unknown) date) or rubs unknown) (unknown) (no (unknown) (unknown) Calcium 8.1 L (units ( unknown) date) unknown) (unknown) (no (unknown) (unknown) Carbon Dioxide 27 (units (unknown) date) unknown) (unknown) (no (unknown) (unknown) Chief complaint: (units (unknown) date) Hip pain unknown) (unknown) (no (unknown) (unknown) Chloride 100 (units (u nknown) date) unknown) (unknown) (no (unknown) (unknown) Code: Full, (units (un known) date) surrogate is son unknown) (unknown) (no (unknown) (unknown) Comment: (units (unknown) date) recently passed in unknown) room with her (unknown) (no (unknown) (unknown) Comment: Right hip (units (unknown) date) replacement, failed unknown) discharge (unknown) (no (unknown) (unknown) Comment: (units (unkno wn) date) unknown) (unknown) (no (unknown) (unknown) Consult to (units (unk nown) date) Dietitian, Adult unknown) Stat (unknown) (no (unknown) (unknown) Consult to (units (unk nown) date) Inpatient Wound Care unknown) Nurse Routine (unknown) (no (unknown) (unknown) 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 - (units (unknown) date) [employer] Worker Stat unknown) (unknown) (no (unknown) (unknown) Consult to (units (unk nown) date) Occupational Therapy unknown) Evaluate + Treat (unknown) (no (unknown) (unknown) Consult to Pastoral (unit s (unknown) date) Services Stat unknown) (unknown) (no (unknown) (unknown) Consult to Physical (unit s (unknown) date) Therapy Evaluate + unknown) Treat (unknown) (no (unknown) (unknown) Consults: (units (unkn own) date) unknown) (unknown) (no (unknown) (unknown) Creatinine 0.38 L (units (unknown) date) unknown) (unknown) (no (unknown) (unknown) : 1960 (units (unknown) date) Acct:[id number] unknown) (unknown) (no (unknown) (unknown) Date Patient Seen: (units (unknown) date) 05/07/22 unknown) (unknown) (no (unknown) (unknown) Date of Service: (units (unknown) date) 05/04/22 unknown) (unknown) (no (unknown) (unknown) Date of admission: (units (unknown) date) unknown) (unknown) (no (unknown) (unknown) Discharge Data (units (unknown) date) unknown) (unknown) (no (unknown) (unknown) Discharge Date: (units (unknown) date) 05/07/22 unknown) (unknown) (no (unknown) (unknown) Discharge (units (unkn own) date) Diagnosis: unknown) (unknown) (no (unknown) (unknown) Discharge Plan (units (unknown) date) unknown) (unknown) (no (unknown) (unknown) Discharge Providers (unit s (unknown) date) unknown) (unknown) (no (unknown) (unknown) Discharge Summary (units (unknown) date) unknown) (unknown) (no (unknown) (unknown) Discharge orders + (units (unknown) date) Medications unknown) (unknown) (no (unknown) (unknown) Discharge provider: (unit s (unknown) date) unknown) (unknown) (no (unknown) (unknown) Dispo: Transfer to (units (unknown) date) SNF for continue unknown) therapies. (unknown) (no (unknown) (unknown) Eos # (Auto) 100 (units (unknown) date) unknown) (unknown) (no (unknown) (unknown) Eos % (Auto) 0.7 L (units (unknown) date) unknown) (unknown) (no (unknown) (unknown) Estimated GFR > 60 (units (unknown) date) unknown) (unknown) (no (unknown) (unknown) Exam Narrative: (units (unknown) date) unknown) (unknown) (no (unknown) (unknown) Exam (units (unkno wn) date) unknown) (unknown) (no (unknown) (unknown) Extremities: LLE (units (unknown) date) edema and swelling unknown) compared to RLE. No tenderness today. (unknown) (no (unknown) (unknown) FH: Patient states (units (unknown) date) she is adopted and unknown) does not know her family medical history. (unknown) (no (unknown) (unknown) Follow (units (unkno wn) date) up/Referrals: unknown) (unknown) (no (unknown) (unknown) Gen: Alert, (units (un known) date) oriented, cachectic unknown) appearing 61 y.o. female, appears (unknown) (no (unknown) (unknown) Globulin 3.0 (units (u nknown) date) unknown) (unknown) (no (unknown) (unknown) Glucose 91 (units (unk nown) date) unknown) (unknown) (no (unknown) (unknown) HEENT: (units (unkno wn) date) normocephalic, unknown) atraumatic, conjunctiva clear, sclera non-icteric, oral (unknown) (no (unknown) (unknown) Hct 24.0 L (units (unk nown) date) unknown) (unknown) (no (unknown) (unknown) He stated she was (units (unknown) date) urinating all the unknown) time and she stated she was having a hard (unknown) (no (unknown) (unknown) Hgb 8.2 L (units (unkn own) date) unknown) (unknown) (no (unknown) (unknown) History of Present (units (unknown) date) Illness unknown) (unknown) (no (unknown) (unknown) History of (units (unk nown) date) clostridium unknown) difficile (unknown) (no (unknown) (unknown) Hospital Course (units (unknown) date) unknown) (unknown) (no (unknown) (unknown) Hospital Course: (units (unknown) date) unknown) (unknown) (no (unknown) (unknown) I certify the (units ( unknown) date) postop hospital unknown) shelter care is medically necessary on a (unknown) (no (unknown) (unknown) [facility] (units (unknown) date) [address] unknown) [place] [address] (unknown) (no (unknown) (unknown) LLE swelling (units (u nknown) date) unknown) (unknown) (no (unknown) (unknown) Laboratory Results (units (unknown) date) - last 24 hr unknown) (unknown) (no (unknown) (unknown) Labs (units (unkno wn) date) unknown) (unknown) (no (unknown) (unknown) Labs: (units (unkno wn) date) unknown) (unknown) (no (unknown) (unknown) Nichol Meng is a (unit s (unknown) date) 61 y.o. female who unknown) was admitted on 04/30/2022 after a fall (unknown) (no (unknown) (unknown) Nichol Meng is (units (unknown) date) admitted due to unknown) failed discharge home after recent left hip (unknown) (no (unknown) (unknown) Prem Abrams MD (units (unknown) date) unknown) (unknown) (no (unknown) (unknown) Lymph # (Auto) 1400 (unit s (unknown) date) unknown) (unknown) (no (unknown) (unknown) Lymph % (Auto) 16.2 (unit s (unknown) date) L unknown) (unknown) (no (unknown) (unknown) MCH 35.1 H (units (unk nown) date) unknown) (unknown) (no (unknown) (unknown) MCHC 34.0 (units (unkn own) date) unknown) (unknown) (no (unknown) (unknown) MCV 103.4 H (units (un known) date) unknown) (unknown) (no (unknown) (unknown) Magnesium 1.4 L (units (unknown) date) unknown) (unknown) (no (unknown) (unknown) [place] # (Auto) 1200 (units (unknown) date) H unknown) (unknown) (no (unknown) (unknown) [place] % (Auto) 13.8 (units (unknown) date) unknown) (unknown) (no (unknown) (unknown) Narrative (units (unkn own) date) unknown) (unknown) (no (unknown) (unknown) Narrative: (units (unk nown) date) unknown) (unknown) (no (unknown) (unknown) Neck: supple, full (units (unknown) date) ROM, no JVD, trachea unknown) is midline (unknown) (no (unknown) (unknown) Neuro: Alert and (units (unknown) date) oriented X 4 w/no unknown) focal deficits. (unknown) (no (unknown) (unknown) Neut # (Auto) 6100 (units (unknown) date) unknown) (unknown) (no (unknown) (unknown) Neut % (Auto) 68.6 (units (unknown) date) unknown) (unknown) (no (unknown) (unknown) No Action (units (unkn own) date) unknown) (unknown) (no (unknown) (unknown) Objective (units (unkn own) date) unknown) (unknown) (no (unknown) (unknown) Oxygen Delivery (units (unknown) date) Method Room Air unknown) (unknown) (no (unknown) (unknown) Oxygen Flow Rate 0 (units (unknown) date) unknown) (unknown) (no (unknown) (unknown) PFSH (units (unkno wn) date) unknown) (unknown) (no (unknown) (unknown) Patient (units (unkno wn) date) Disposition: SNF unknown) (unknown) (no (unknown) (unknown) Patient: (units (unkno wn) date) Nichol Meng R unknown) MR#: [id number] (unknown) (no (unknown) (unknown) Per Elvia Gtz, (units (unknown) date) ANIMAL BIOLOGIST: unknown) (unknown) (no (unknown) (unknown) Physician (units (unkn own) date) Instructions: unknown) Evaluate and Treat (unknown) (no (unknown) (unknown) Physician (units (unkn own) date) Instructions: unknown) Evaluate and treat (unknown) (no (unknown) (unknown) Please see hospital (unit s (unknown) date) course by problem unknown) list noted below (unknown) (no (unknown) (unknown) Plt Count 458 H (units (unknown) date) unknown) (unknown) (no (unknown) (unknown) Potassium 3.4 (units ( unknown) date) unknown) (unknown) (no (unknown) (unknown) Prescriptions: (units (unknown) date) unknown) (unknown) (no (unknown) (unknown) Primary Care (units (u nknown) date) Provider: Prem Abrams unknown) (unknown) (no (unknown) (unknown) Primary care (units (u nknown) date) physician: unknown) (unknown) (no (unknown) (unknown) Provider (units (unkno wn) date) unknown) (unknown) (no (unknown) (unknown) Provider: (units (unkn own) date) Jameson Guevara D.O. unknown) (unknown) (no (unknown) (unknown) Psyche: calm and (units (unknown) date) cooperative with unknown) stable behavior. (unknown) (no (unknown) (unknown) Pulse Oximetry 96 (units (unknown) date) 98 unknown) (unknown) (no (unknown) (unknown) Pulse Rate 87 81 (units (unknown) date) unknown) (unknown) (no (unknown) (unknown) RBC 2.32 L (units (unk nown) date) unknown) (unknown) (no (unknown) (unknown) RDW 13.2 (units (unkno wn) date) unknown) (unknown) (no (unknown) (unknown) Reason For Exam: (units (unknown) date) Severe protein unknown) malnutrition bmi 16 (unknown) (no (unknown) (unknown) Reason for (units (unk nown) date) consultation: LEFT unknown) HIP (unknown) (no (unknown) (unknown) Resp: Lungs CTA, (units (unknown) date) non-labored unknown) breathing (unknown) (no (unknown) (unknown) Respiratory Rate 18 (unit s (unknown) date) 16 unknown) (unknown) (no (unknown) (unknown) Result Diagrams: (units (unknown) date) unknown) (unknown) (no (unknown) (unknown) Jameson Guevara DO (units (unknown) date) unknown) (unknown) (no (unknown) (unknown) Prem Abrams MD (units (unknown) date) [Primary Care unknown) Provider] (unknown) (no (unknown) (unknown) S/p left (units (unkno wn) date) introchanteric hip unknown) repair (unknown) (no (unknown) (unknown) Severe protein (units (unknown) date) calorie malnution unknown) (unknown) (no (unknown) (unknown) Signed By: (units (unk nown) date) unknown) (unknown) (no (unknown) (unknown) Skin: no lesions or (unit s (unknown) date) rashes, dry and unknown) intact (unknown) (no (unknown) (unknown) Smoking Status: (units (unknown) date) Current every day unknown) smoker (unknown) (no (unknown) (unknown) Social History (units (unknown) date) (Reviewed 05/04/22 @ unknown) 19:33 by Roe Su PA-C) (unknown) (no (unknown) (unknown) Sodium 128 L (units (u nknown) date) unknown) (unknown) (no (unknown) (unknown) Status post (units (un known) date) appendectomy unknown) (unknown) (no (unknown) (unknown) Status post breast (units (unknown) date) lumpectomy unknown) (unknown) (no (unknown) (unknown) Status post (units (un known) date) hysterectomy unknown) (unknown) (no (unknown) (unknown) Summary (units (unkno wn) date) unknown) (unknown) (no (unknown) (unknown) Surgical History (units (unknown) date) (Reviewed 05/04/22 @ unknown) 19:33 by Roe Su PA-C) (unknown) (no (unknown) (unknown) Temperature 96.9 F (units (unknown) date) L 96.9 F L unknown) (unknown) (no (unknown) (unknown) The receiving (units ( unknown) date) facility has agreed unknown) to accept transfer and provide medical (unknown) (no (unknown) (unknown) Time Spent with (units (unknown) date) Patient unknown) (unknown) (no (unknown) (unknown) Time spent: Greater (unit s (unknown) date) than 30 minutes unknown) (unknown) (no (unknown) (unknown) Tobacco dependence, (unit s (unknown) date) chronic and unknown) longstanding (unknown) (no (unknown) (unknown) Today, her son (units (unknown) date) living in [place], unknown) arrived and saw that she was failing at home. (unknown) (no (unknown) (unknown) Total Bilirubin 0.3 (unit s (unknown) date) unknown) (unknown) (no (unknown) (unknown) Total Protein 5.5 L (unit s (unknown) date) unknown) (unknown) (no (unknown) (unknown) Urinary tract (units ( unknown) date) infection, acute and unknown) present on admission (unknown) (no (unknown) (unknown) Vital Signs (units (un known) date) unknown) (unknown) (no (unknown) (unknown) WBC 8.9 (units (unkno wn) date) unknown) (unknown) (no (unknown) (unknown) X-ray of the pelvis (unit s (unknown) date) reported left unknown) intratrochanteric hip fracture with good (unknown) (no (unknown) (unknown) [Embedded Image Not (unit s (unknown) date) Available] unknown) (unknown) (no (unknown) (unknown) acetaminophen 325 (units (unknown) date) mg Tablet unknown) (unknown) (no (unknown) (unknown) afebrile, blood (units (unknown) date) pressure 155/84, unknown) heart rate 109, respiratory rate 10, oxygen (unknown) (no (unknown) (unknown) ago, did not (units (u nknown) date) complete the medical unknown) treatment (stated she did not like the taste (unknown) (no (unknown) (unknown) alcohol intake: (units (unknown) date) current unknown) (unknown) (no (unknown) (unknown) alcohol (units (unkno wn) date) intoxication. She unknown) was advised to avoid alcohol use. She was quite (unknown) (no (unknown) (unknown) alignment in a (units (unknown) date) fracture of the left unknown) ischial tuberosity with sclerosis. She is (unknown) (no (unknown) (unknown) continuing basis (units (unknown) date) for any conditions unknown) for which he/ she received care during this (unknown) (no (unknown) (unknown) count is elevated (units (unknown) date) at 14.1 hemoglobin unknown) and hematocrit are 9.9 and 28.8 (unknown) (no (unknown) (unknown) debility after her (units (unknown) date) left hip fracture unknown) and repair. (unknown) (no (unknown) (unknown) deemed to have (units (unknown) date) significant unknown) malnutrition and saw dietary who recommended trying (unknown) (no (unknown) (unknown) diarrhea. She does (units (unknown) date) admit to smoking a unknown) pack and a half of cigarettes/day and (unknown) (no (unknown) (unknown) discharged home (units (unknown) date) with home PT. unknown) Unfortunately during her hospital stay her (unknown) (no (unknown) (unknown) drinking again. (units (unknown) date) Stated bilateral unknown) extremities are mildly swollen. Her son also (unknown) (no (unknown) (unknown) elevated at 1.56. (units (unknown) date) UA is positive for unknown) UTI and cultures pending, COVID-19 PCR is (unknown) (no (unknown) (unknown) enoxaparin (units (unk nown) date) [Lovenox] 40 mg/0.4 unknown) mL Syringe (unknown) (no (unknown) (unknown) fluid restriction (units (unknown) date) and improved diet unknown) and discharged on May 04. She was (unknown) (no (unknown) (unknown) folic acid 1 mg (units (unknown) date) Tablet unknown) (unknown) (no (unknown) (unknown) for which she had a (unit s (unknown) date) pelvic fracture and unknown) left hip fracture. She did have the hip (unknown) (no (unknown) (unknown) fracture repaired (units (unknown) date) on the day of unknown) admission. She declined SNF and ultimately was (unknown) (no (unknown) (unknown) fracture with a new (unit s (unknown) date) urinary tract unknown) infection and severe protein malnutrition. (unknown) (no (unknown) (unknown) hospitalization.: (units (unknown) date) Yes unknown) (unknown) (no (unknown) (unknown) household members: (units (unknown) date) none unknown) (unknown) (no (unknown) (unknown) passed (units (unknown) date) away. Her likely unknown) cause of injury is mechanical fall due to (unknown) (no (unknown) (unknown) hyponatremic on (units (unknown) date) admission at that unknown) time with a sodium of 122, and improved with (unknown) (no (unknown) (unknown) malnutrition is (units (unknown) date) thought to unknown) potentially negatively affect her wound healing. (unknown) (no (unknown) (unknown) malnutrition. (units ( unknown) date) unknown) (unknown) (no (unknown) (unknown) mentioned she had (units (unknown) date) been previously unknown) treated for C. difficile a number of years (unknown) (no (unknown) (unknown) mucosa pink and (units (unknown) date) moist unknown) (unknown) (no (unknown) (unknown) narrowed to oral (units (unknown) date) therapy today with unknown) macrobid given pencillin allergy. (unknown) (no (unknown) (unknown) negative. (units (unkn own) date) unknown) (unknown) (no (unknown) (unknown) of Flagyl) and was (units (unknown) date) concerned she still unknown) had the infection due to persistent (unknown) (no (unknown) (unknown) of her liver (units (u nknown) date) enzymes are normal, unknown) albumin is low at 3.3 and procalcitonin is (unknown) (no (unknown) (unknown) older than stated (units (unknown) date) age. unknown) (unknown) (no (unknown) (unknown) oxycodone 5 mg (units (unknown) date) Tablet unknown) (unknown) (no (unknown) (unknown) respectively, (units ( unknown) date) platelet count is unknown) 407, she has a left shift of 10,700, today are (unknown) (no (unknown) (unknown) resumed drinking (units (unknown) date) ('some days one unknown) drink, others more'). (unknown) (no (unknown) (unknown) saturation of 90% (units (unknown) date) on room air she unknown) weighs 46 kg with a BMI of 17. Her white (unknown) (no (unknown) (unknown) sennosides [senna] (units (unknown) date) 8.6 mg Tablet unknown) (unknown) (no (unknown) (unknown) shakes and avoid (units (unknown) date) alcohol and follow unknown) up with her PCP as an outpatient. 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 She (units (unknown) date) states her pain was unknown) well controlled, son noted she began Result panel 70 (unknown) (no (unknown) (unknown) (no value) (units (unk nown) date) unknown) (unknown) (no (unknown) (unknown) (past 8 hours): (units (unknown) date) unknown) (unknown) (no (unknown) (unknown) - Apprecite (units (un known) date) Dietary/nutritional unknown) consult, continue dietary supplementation. (unknown) (no (unknown) (unknown) - BMI is 16.9 (units ( unknown) date) unknown) (unknown) (no (unknown) (unknown) - CIWA protocol (units (unknown) date) ordered, no symptoms unknown) during the course of her admission (unknown) (no (unknown) (unknown) - Chronic alcohol (units (unknown) date) use likely unknown) contributing (unknown) (no (unknown) (unknown) - Continue 14 mcg (units (unknown) date) nicoderm patch unknown) (unknown) (no (unknown) (unknown) - Pain control with (unit s (unknown) date) tyelenol, po unknown) hydrocodone, po oxycodone (unknown) (no (unknown) (unknown) - Patient denies (units (unknown) date) having issues in the unknown) past with withdrawal (unknown) (no (unknown) (unknown) - Transfer for SNF (units (unknown) date) for continued unknown) therapies at discharge. (unknown) (no (unknown) (unknown) - culture with wallace (units (unknown) date) sensitive E. coli unknown) and was started on ceftriaxone, then (unknown) (no (unknown) (unknown) - no symptoms (units ( unknown) date) during admission. unknown) (unknown) (no (unknown) (unknown) - patient's severe (units (unknown) date) protein calorie unknown) malnutrition contributes to weakness and (unknown) (no (unknown) (unknown) - repleted while in (unit s (unknown) date) the hospital, unknown) remains low and likely contributing to (unknown) (no (unknown) (unknown) -Continue (units (unkn own) date) multivitamins, unknown) thiamine and folic acid which will also help with (unknown) (no (unknown) (unknown) 0.5 mg PO BEDTIME (units (unknown) date) PRN (Reason: Sleep) unknown) 30 Days Qty: 20 0RF (unknown) (no (unknown) (unknown) [id number] (units (unkno wn) date) unknown) (unknown) (no (unknown) (unknown) 04:00 05/07/22 (units (unknown) date) unknown) (unknown) (no (unknown) (unknown) 05:30 05:48 (units (un known) date) unknown) (unknown) (no (unknown) (unknown) 07:30 (units (unkno wn) date) unknown) (unknown) (no (unknown) (unknown) 1 mg PO DAILY Qty: (units (unknown) date) 30 0RF unknown) (unknown) (no (unknown) (unknown) 1 tab PO DAILY 30 (units (unknown) date) Days Qty: 30 0RF unknown) (unknown) (no (unknown) (unknown) 05/04/22 16:56 (units (unknown) date) unknown) (unknown) (no (unknown) (unknown) 05/04/22 19:32 (units (unknown) date) unknown) (unknown) (no (unknown) (unknown) 05/04/22 19:33 (units (unknown) date) unknown) (unknown) (no (unknown) (unknown) 05/05/22 09:26 (units (unknown) date) unknown) (unknown) (no (unknown) (unknown) 05/05/22 12:19 (units (unknown) date) unknown) (unknown) (no (unknown) (unknown) 05/07/22 05:30 (units (unknown) date) unknown) (unknown) (no (unknown) (unknown) 05/07/22 05:48 (units (unknown) date) unknown) (unknown) (no (unknown) (unknown) 05/07/22 05/07/22 (units (unknown) date) unknown) (unknown) (no (unknown) (unknown) 05/07/22 1122 (units ( unknown) date) unknown) (unknown) (no (unknown) (unknown) 05/07/22 (units (unkno wn) date) unknown) (unknown) (no (unknown) (unknown) 100 mg PO BID 14 (units (unknown) date) Days Qty: 28 0RF unknown) (unknown) (no (unknown) (unknown) 100 mg PO BID 3 (units (unknown) date) Days Qty: 6 0RF unknown) (unknown) (no (unknown) (unknown) 100 mg PO DAILY (units (unknown) date) Qty: 30 0RF unknown) (unknown) (no (unknown) (unknown) 128 mg PO Q8H 14 (units (unknown) date) Days Qty: 76 0RF unknown) (unknown) (no (unknown) (unknown) 14 mg topical DAILY (unit s (unknown) date) 14 Days Qty: 14 0RF unknown) (unknown) (no (unknown) (unknown) 17 g PO DAILY PRN (units (unknown) date) (Reason: unknown) Constipation) 14 Days Qty: 14 0RF (unknown) (no (unknown) (unknown) 40 mg SUBCUT DAILY (units (unknown) date) 28 Days Qty: 12 0RF unknown) (unknown) (no (unknown) (unknown) 5 mg PO Q4HR PRN (units (unknown) date) (Reason: Pain, unknown) Moderate (4-6)) Qty: 30 0RF (unknown) (no (unknown) (unknown) 6 mg PO BEDTIME 30 (units (unknown) date) Days Qty: 60 0RF unknown) (unknown) (no (unknown) (unknown) 650 mg PO Q6HR PRN (units (unknown) date) (Reason: Fever/Mild unknown) Pain (1-3)) Qty: 30 0RF (unknown) (no (unknown) (unknown) 8.6 mg PO BID PRN (units (unknown) date) (Reason: unknown) Constipation) Qty: 30 0RF (unknown) (no (unknown) (unknown) ?- may be from (units (unknown) date) recent surgery, [place] unknown) was negative for DVT. (unknown) (no (unknown) (unknown) ALT 13 (units (unkno wn) date) unknown) (unknown) (no (unknown) (unknown) AST 20 (units (unkno wn) date) unknown) (unknown) (no (unknown) (unknown) Abd: soft, (units (unk nown) date) non-tender, unknown) normoactive BTs (unknown) (no (unknown) (unknown) Age/Sex: 61 / F (units (unknown) date) unknown) (unknown) (no (unknown) (unknown) Albumin 2.5 L (units ( unknown) date) unknown) (unknown) (no (unknown) (unknown) Albumin/Globulin (units (unknown) date) Ratio 0.8 L unknown) (unknown) (no (unknown) (unknown) Alcohol dependence, (unit s (unknown) date) chronic and unknown) longstanding (unknown) (no (unknown) (unknown) Alkaline (units (unkno wn) date) Phosphatase 105 unknown) (unknown) (no (unknown) (unknown) Attending Provider: (unit s (unknown) date) Elvia Gtz unknown) (unknown) (no (unknown) (unknown) BUN 7 (units (unkno wn) date) unknown) (unknown) (no (unknown) (unknown) BUN/Creatinine (units (unknown) date) Ratio 18.4 unknown) (unknown) (no (unknown) (unknown) Baso # (Auto) 100 (units (unknown) date) unknown) (unknown) (no (unknown) (unknown) Baso % (Auto) 0.7 (units (unknown) date) unknown) (unknown) (no (unknown) (unknown) Blood Pressure (units (unknown) date) 148/71 H 139/82 unknown) (unknown) (no (unknown) (unknown) CV: RRR, no murmur (units (unknown) date) or rubs unknown) (unknown) (no (unknown) (unknown) Calcium 8.1 L (units ( unknown) date) unknown) (unknown) (no (unknown) (unknown) Carbon Dioxide 27 (units (unknown) date) unknown) (unknown) (no (unknown) (unknown) Chief complaint: (units (unknown) date) Hip pain unknown) (unknown) (no (unknown) (unknown) Chloride 100 (units (u nknown) date) unknown) (unknown) (no (unknown) (unknown) Code: Full, (units (un known) date) surrogate is son unknown) (unknown) (no (unknown) (unknown) Comment: (units (unknown) date) recently passed in unknown) room with her (unknown) (no (unknown) (unknown) Comment: Right hip (units (unknown) date) replacement, failed unknown) discharge (unknown) (no (unknown) (unknown) Comment: (units (unkno wn) date) unknown) (unknown) (no (unknown) (unknown) Consult to (units (unk nown) date) Dietitian, Adult unknown) Stat (unknown) (no (unknown) (unknown) Consult to (units (unk nown) date) Inpatient Wound Care unknown) Nurse Routine (unknown) (no (unknown) (unknown) 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 - (units (unknown) date) [employer] Worker Stat unknown) (unknown) (no (unknown) (unknown) Consult to (units (unk nown) date) Occupational Therapy unknown) Evaluate + Treat (unknown) (no (unknown) (unknown) Consult to Pastoral (unit s (unknown) date) Services Stat unknown) (unknown) (no (unknown) (unknown) Consult to Physical (unit s (unknown) date) Therapy Evaluate + unknown) Treat (unknown) (no (unknown) (unknown) Consults: (units (unkn own) date) unknown) (unknown) (no (unknown) (unknown) Continued (units (unkn own) date) unknown) (unknown) (no (unknown) (unknown) Creatinine 0.38 L (units (unknown) date) unknown) (unknown) (no (unknown) (unknown) : 1960 (units (unknown) date) Acct:[id number] unknown) (unknown) (no (unknown) (unknown) Date Patient Seen: (units (unknown) date) 05/07/22 unknown) (unknown) (no (unknown) (unknown) Date of Service: (units (unknown) date) 05/04/22 unknown) (unknown) (no (unknown) (unknown) Date of admission: (units (unknown) date) unknown) (unknown) (no (unknown) (unknown) Discharge Data (units (unknown) date) unknown) (unknown) (no (unknown) (unknown) Discharge Date: (units (unknown) date) 05/07/22 unknown) (unknown) (no (unknown) (unknown) Discharge (units (unkn own) date) Diagnosis: unknown) (unknown) (no (unknown) (unknown) Discharge Plan (units (unknown) date) unknown) (unknown) (no (unknown) (unknown) Discharge Providers (unit s (unknown) date) unknown) (unknown) (no (unknown) (unknown) Discharge Summary (units (unknown) date) unknown) (unknown) (no (unknown) (unknown) Discharge orders + (units (unknown) date) Medications unknown) (unknown) (no (unknown) (unknown) Discharge provider: (unit s (unknown) date) unknown) (unknown) (no (unknown) (unknown) Dispo: Transfer to (units (unknown) date) SNF for continue unknown) therapies. (unknown) (no (unknown) (unknown) Eos # (Auto) 100 (units (unknown) date) unknown) (unknown) (no (unknown) (unknown) Eos % (Auto) 0.7 L (units (unknown) date) unknown) (unknown) (no (unknown) (unknown) Estimated GFR > 60 (units (unknown) date) unknown) (unknown) (no (unknown) (unknown) Exam Narrative: (units (unknown) date) unknown) (unknown) (no (unknown) (unknown) Exam (units (unkno wn) date) unknown) (unknown) (no (unknown) (unknown) Extremities: LLE (units (unknown) date) edema and swelling unknown) compared to RLE. No tenderness today. (unknown) (no (unknown) (unknown) FH: Patient states (units (unknown) date) she is adopted and unknown) does not know her family medical history. (unknown) (no (unknown) (unknown) Follow (units (unkno wn) date) up/Referrals: unknown) (unknown) (no (unknown) (unknown) Gen: Alert, (units (un known) date) oriented, cachectic unknown) appearing 61 y.o. female, appears (unknown) (no (unknown) (unknown) Globulin 3.0 (units (u nknown) date) unknown) (unknown) (no (unknown) (unknown) Glucose 91 (units (unk nown) date) unknown) (unknown) (no (unknown) (unknown) HEENT: (units (unkno wn) date) normocephalic, unknown) atraumatic, conjunctiva clear, sclera non-icteric, oral (unknown) (no (unknown) (unknown) Hct 24.0 L (units (unk nown) date) unknown) (unknown) (no (unknown) (unknown) He stated she was (units (unknown) date) urinating all the unknown) time and she stated she was having a hard (unknown) (no (unknown) (unknown) Hgb 8.2 L (units (unkn own) date) unknown) (unknown) (no (unknown) (unknown) History of Present (units (unknown) date) Illness unknown) (unknown) (no (unknown) (unknown) History of (units (unk nown) date) clostridium unknown) difficile (unknown) (no (unknown) (unknown) Hospital Course (units (unknown) date) unknown) (unknown) (no (unknown) (unknown) Hospital Course: (units (unknown) date) unknown) (unknown) (no (unknown) (unknown) Hypomagnesemia (units (unknown) date) unknown) (unknown) (no (unknown) (unknown) I certify the (units ( unknown) date) postop hospital unknown) shelter care is medically necessary on a (unknown) (no (unknown) (unknown) [facility] (units (unknown) date) [address] unknown) [place] [address] (unknown) (no (unknown) (unknown) LLE swelling (units (u nknown) date) unknown) (unknown) (no (unknown) (unknown) Laboratory Results (units (unknown) date) - last 24 hr unknown) (unknown) (no (unknown) (unknown) Labs (units (unkno wn) date) unknown) (unknown) (no (unknown) (unknown) Labs: (units (unkno wn) date) unknown) (unknown) (no (unknown) (unknown) Nichol Meng is a (unit s (unknown) date) 61 y.o. female who unknown) was admitted on 04/30/2022 after a fall (unknown) (no (unknown) (unknown) Nichol Meng is (units (unknown) date) admitted due to unknown) failed discharge home after recent left hip (unknown) (no (unknown) (unknown) Prem Abrams MD (units (unknown) date) unknown) (unknown) (no (unknown) (unknown) Lymph # (Auto) 1400 (unit s (unknown) date) unknown) (unknown) (no (unknown) (unknown) Lymph % (Auto) 16.2 (unit s (unknown) date) L unknown) (unknown) (no (unknown) (unknown) MCH 35.1 H (units (unk nown) date) unknown) (unknown) (no (unknown) (unknown) MCHC 34.0 (units (unkn own) date) unknown) (unknown) (no (unknown) (unknown) MCV 103.4 H (units (un known) date) unknown) (unknown) (no (unknown) (unknown) Magnesium 1.4 L (units (unknown) date) unknown) (unknown) (no (unknown) (unknown) [place] # (Auto) 1200 (units (unknown) date) H unknown) (unknown) (no (unknown) (unknown) [place] % (Auto) 13.8 (units (unknown) date) unknown) (unknown) (no (unknown) (unknown) Narrative (units (unkn own) date) unknown) (unknown) (no (unknown) (unknown) Narrative: (units (unk nown) date) unknown) (unknown) (no (unknown) (unknown) Neck: supple, full (units (unknown) date) ROM, no JVD, trachea unknown) is midline (unknown) (no (unknown) (unknown) Neuro: Alert and (units (unknown) date) oriented X 4 w/no unknown) focal deficits. (unknown) (no (unknown) (unknown) Neut # (Auto) 6100 (units (unknown) date) unknown) (unknown) (no (unknown) (unknown) Neut % (Auto) 68.6 (units (unknown) date) unknown) (unknown) (no (unknown) (unknown) New (units (unkno wn) date) unknown) (unknown) (no (unknown) (unknown) Objective (units (unkn own) date) unknown) (unknown) (no (unknown) (unknown) Oxygen Delivery (units (unknown) date) Method Room Air unknown) (unknown) (no (unknown) (unknown) Oxygen Flow Rate 0 (units (unknown) date) unknown) (unknown) (no (unknown) (unknown) PFSH (units (unkno wn) date) unknown) (unknown) (no (unknown) (unknown) Patient (units (unkno wn) date) Disposition: SNF unknown) (unknown) (no (unknown) (unknown) Patient: (units (unkno wn) date) Nichol Meng unknown) MR#: [id number] (unknown) (no (unknown) (unknown) Per Elvia Gtz, (units (unknown) date) ANIMAL BIOLOGIST: unknown) (unknown) (no (unknown) (unknown) Physician (units (unkn own) date) Instructions: unknown) Evaluate and Treat (unknown) (no (unknown) (unknown) Physician (units (unkn own) date) Instructions: unknown) Evaluate and treat (unknown) (no (unknown) (unknown) Please see hospital (unit s (unknown) date) course by problem unknown) list noted below (unknown) (no (unknown) (unknown) Plt Count 458 H (units (unknown) date) unknown) (unknown) (no (unknown) (unknown) Potassium 3.4 (units ( unknown) date) unknown) (unknown) (no (unknown) (unknown) Prescriptions: (units (unknown) date) unknown) (unknown) (no (unknown) (unknown) Primary Care (units (u nknown) date) Provider: Prem Abrams unknown) (unknown) (no (unknown) (unknown) Primary care (units (u nknown) date) physician: unknown) (unknown) (no (unknown) (unknown) Provider Discharge (units (unknown) date) Comment: 61 year old unknown) female with recent hip fracture, failed (unknown) (no (unknown) (unknown) Provider (units (unkno wn) date) unknown) (unknown) (no (unknown) (unknown) Provider: (units (unkn own) date) Jameson Guevara D.O. unknown) (unknown) (no (unknown) (unknown) Psyche: calm and (units (unknown) date) cooperative with unknown) stable behavior. (unknown) (no (unknown) (unknown) Pulse Oximetry 96 (units (unknown) date) 98 unknown) (unknown) (no (unknown) (unknown) Pulse Rate 87 81 (units (unknown) date) unknown) (unknown) (no (unknown) (unknown) RBC 2.32 L (units (unk nown) date) unknown) (unknown) (no (unknown) (unknown) RDW 13.2 (units (unkno wn) date) unknown) (unknown) (no (unknown) (unknown) Reason For Exam: (units (unknown) date) Severe protein unknown) malnutrition bmi 16 (unknown) (no (unknown) (unknown) Reason for (units (unk nown) date) consultation: LEFT unknown) HIP (unknown) (no (unknown) (unknown) Resp: Lungs CTA, (units (unknown) date) non-labored unknown) breathing (unknown) (no (unknown) (unknown) Respiratory Rate 18 (unit s (unknown) date) 16 unknown) (unknown) (no (unknown) (unknown) Result Diagrams: (units (unknown) date) unknown) (unknown) (no (unknown) (unknown) Jameson Guevara DO (units (unknown) date) unknown) (unknown) (no (unknown) (unknown) Prem Abrams MD (units (unknown) date) [Primary Care unknown) Provider] (unknown) (no (unknown) (unknown) S/p left (units (unkno wn) date) introchanteric hip unknown) repair (unknown) (no (unknown) (unknown) Severe chronic (units (unknown) date) protein calorie unknown) malnution (unknown) (no (unknown) (unknown) Signed (units (unkno wn) date) By:<Electronically unknown) signed by Jameson Guevara D.O.> (unknown) (no (unknown) (unknown) Skin: no lesions or (unit s (unknown) date) rashes, dry and unknown) intact (unknown) (no (unknown) (unknown) Slow-Mag 71.5 mg (units (unknown) date) Tablet,Delayed unknown) Release (Dr/Ec) (unknown) (no (unknown) (unknown) Smoking Status: (units (unknown) date) Current every day unknown) smoker (unknown) (no (unknown) (unknown) Social History (units (unknown) date) (Reviewed 05/04/22 @ unknown) 19:33 by Roe Su PA-C) (unknown) (no (unknown) (unknown) Sodium 128 L (units (u nknown) date) unknown) (unknown) (no (unknown) (unknown) Status post (units (un known) date) appendectomy unknown) (unknown) (no (unknown) (unknown) Status post breast (units (unknown) date) lumpectomy unknown) (unknown) (no (unknown) (unknown) Status post (units (un known) date) hysterectomy unknown) (unknown) (no (unknown) (unknown) Summary (units (unkno wn) date) unknown) (unknown) (no (unknown) (unknown) Surgical History (units (unknown) date) (Reviewed 05/04/22 @ unknown) 19:33 by Roe Su PA-C) (unknown) (no (unknown) (unknown) Temperature 96.9 F (units (unknown) date) L 96.9 F L unknown) (unknown) (no (unknown) (unknown) The receiving (units ( unknown) date) facility has agreed unknown) to accept transfer and provide medical (unknown) (no (unknown) (unknown) Time Spent with (units (unknown) date) Patient unknown) (unknown) (no (unknown) (unknown) Time spent: Greater (unit s (unknown) date) than 30 minutes unknown) (unknown) (no (unknown) (unknown) Tobacco dependence, (unit s (unknown) date) chronic and unknown) longstanding (unknown) (no (unknown) (unknown) Today, her son (units (unknown) date) living in [place], unknown) arrived and saw that she was failing at home. (unknown) (no (unknown) (unknown) Total Bilirubin 0.3 (unit s (unknown) date) unknown) (unknown) (no (unknown) (unknown) Total Protein 5.5 L (unit s (unknown) date) unknown) (unknown) (no (unknown) (unknown) Urinary tract (units ( unknown) date) infection, acute and unknown) present on admission (unknown) (no (unknown) (unknown) Vital Signs (units (un known) date) unknown) (unknown) (no (unknown) (unknown) WBC 8.9 (units (unkno wn) date) unknown) (unknown) (no (unknown) (unknown) X-ray of the pelvis (unit s (unknown) date) reported left unknown) intratrochanteric hip fracture with good (unknown) (no (unknown) (unknown) [Embedded Image Not (unit s (unknown) date) Available] unknown) (unknown) (no (unknown) (unknown) acetaminophen 325 (units (unknown) date) mg Tablet unknown) (unknown) (no (unknown) (unknown) afebrile, blood (units (unknown) date) pressure 155/84, unknown) heart rate 109, respiratory rate 10, oxygen (unknown) (no (unknown) (unknown) ago, did not (units (u nknown) date) complete the medical unknown) treatment (stated she did not like the taste (unknown) (no (unknown) (unknown) alcohol intake: (units (unknown) date) current unknown) (unknown) (no (unknown) (unknown) alcohol (units (unkno wn) date) intoxication. She unknown) was advised to avoid alcohol use. She was quite (unknown) (no (unknown) (unknown) alignment in a (units (unknown) date) fracture of the left unknown) ischial tuberosity with sclerosis. She is (unknown) (no (unknown) (unknown) clonazepam 0.5 mg (units (unknown) date) Tablet unknown) (unknown) (no (unknown) (unknown) continuing basis (units (unknown) date) for any conditions unknown) for which he/ she received care during this (unknown) (no (unknown) (unknown) count is elevated (units (unknown) date) at 14.1 hemoglobin unknown) and hematocrit are 9.9 and 28.8 (unknown) (no (unknown) (unknown) debility after her (units (unknown) date) left hip fracture unknown) and repair. (unknown) (no (unknown) (unknown) deemed to have (units (unknown) date) significant unknown) malnutrition and saw dietary who recommended trying (unknown) (no (unknown) (unknown) diarrhea. She does (units (unknown) date) admit to smoking a unknown) pack and a half of cigarettes/day and (unknown) (no (unknown) (unknown) discharged home (units (unknown) date) with home PT. unknown) Unfortunately during her hospital stay her (unknown) (no (unknown) (unknown) docusate sodium 100 (unit s (unknown) date) mg Capsule unknown) (unknown) (no (unknown) (unknown) drinking again. (units (unknown) date) Stated bilateral unknown) extremities are mildly swollen. Her son also (unknown) (no (unknown) (unknown) elevated at 1.56. (units (unknown) date) UA is positive for unknown) UTI and cultures pending, COVID-19 PCR is (unknown) (no (unknown) (unknown) enoxaparin (units (unk nown) date) [Lovenox] 40 mg/0.4 unknown) mL Syringe (unknown) (no (unknown) (unknown) fluid restriction (units (unknown) date) and improved diet unknown) and discharged on May 04. She was (unknown) (no (unknown) (unknown) folic acid 1 mg (units (unknown) date) Tablet unknown) (unknown) (no (unknown) (unknown) for continued (units ( unknown) date) therapies. unknown) (unknown) (no (unknown) (unknown) for which she had a (unit s (unknown) date) pelvic fracture and unknown) left hip fracture. She did have the hip (unknown) (no (unknown) (unknown) fracture repaired (units (unknown) date) on the day of unknown) admission. She declined SNF and ultimately was (unknown) (no (unknown) (unknown) fracture with a new (unit s (unknown) date) urinary tract unknown) infection and severe protein malnutrition. (unknown) (no (unknown) (unknown) home management and (unit s (unknown) date) admitted with UTI unknown) and malnutrtion and will discharge to SNF (unknown) (no (unknown) (unknown) hospitalization.: (units (unknown) date) Yes unknown) (unknown) (no (unknown) (unknown) household members: (units (unknown) date) none unknown) (unknown) (no (unknown) (unknown) passed (units (unknown) date) away. Her likely unknown) cause of injury is mechanical fall due to (unknown) (no (unknown) (unknown) hyponatremic on (units (unknown) date) admission at that unknown) time with a sodium of 122, and improved with (unknown) (no (unknown) (unknown) malnutrition is (units (unknown) date) thought to unknown) potentially negatively affect her wound healing. (unknown) (no (unknown) (unknown) malnutrition. (units ( unknown) date) unknown) (unknown) (no (unknown) (unknown) melatonin 3 mg (units (unknown) date) Tablet unknown) (unknown) (no (unknown) (unknown) mentioned she had (units (unknown) date) been previously unknown) treated for C. difficile a number of years (unknown) (no (unknown) (unknown) mucosa pink and (units (unknown) date) moist unknown) (unknown) (no (unknown) (unknown) multivitamin with (units (unknown) date) folic acid unknown) [Tab-A-Kevin] 400 mcg Tablet (unknown) (no (unknown) (unknown) narrowed to oral (units (unknown) date) therapy today with unknown) macrobid given pencillin allergy. (unknown) (no (unknown) (unknown) negative. (units (unkn own) date) unknown) (unknown) (no (unknown) (unknown) nicotine 14 mg/24 (units (unknown) date) hr Patch 24 Hour unknown) (unknown) (no (unknown) (unknown) nitrofurantoin (units (unknown) date) monohyd/m-cryst unknown) [Macrobid] 100 mg Capsule (unknown) (no (unknown) (unknown) of Flagyl) and was (units (unknown) date) concerned she still unknown) had the infection due to persistent (unknown) (no (unknown) (unknown) of her liver (units (u nknown) date) enzymes are normal, unknown) albumin is low at 3.3 and procalcitonin is (unknown) (no (unknown) (unknown) older than stated (units (unknown) date) age. unknown) (unknown) (no (unknown) (unknown) oxycodone 5 mg (units (unknown) date) Tablet unknown) (unknown) (no (unknown) (unknown) polyethylene glycol (unit s (unknown) date) 3350 17 gram Powder unknown) In Packet (unknown) (no (unknown) (unknown) respectively, (units ( unknown) date) platelet count is unknown) 407, she has a left shift of 10,700, today are (unknown) (no (unknown) (unknown) resumed drinking (units (unknown) date) ('some days one unknown) drink, others more'). (unknown) (no (unknown) (unknown) saturation of 90% (units (unknown) date) on room air she unknown) weighs 46 kg with a BMI of 17. Her white (unknown) (no (unknown) (unknown) sennosides [senna] (units (unknown) date) 8.6 mg Tablet unknown) (unknown) (no (unknown) (unknown) shakes and avoid (units (unknown) date) alcohol and follow unknown) up with her PCP as an outpatient. 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 Sent with (unit s (unknown) date) oral supplementation unknown) at SNF. (unknown) (no (unknown) (unknown) wheelchair. She (units (unknown) date) states her pain was unknown) well controlled, son noted she began Result panel 71 (unknown) (no date) (unknown) (unknown) Negative (units (unkn own) unknown) (unknown) (no date) (unknown) (unknown) Negative (units (unkn own) unknown) Result panel 72 (unknown) (no date) (unknown) (unknown) (no value) (units (un known) unknown) (unknown) (no date) (unknown) (unknown) NO GROWTH (units (unk nown) AFTER 72 unknown) HOURS Result panel 73 (unknown) (no date) (unknown) (unknown) (no value) (units (un known) unknown) (unknown) (no date) (unknown) (unknown) NO GROWTH (units (unk nown) AFTER 4 DAYS unknown) Result panel 74 (unknown) (no date) (unknown) (unknown) (no value) (units (un known) unknown) (unknown) (no date) (unknown) (unknown) NO GROWTH (units (unk nown) AFTER 5 DAYS unknown) Result panel 75 (unknown) (no (unknown) (unknown) (no value) (units (unk nown) date) unknown) (unknown) (no (unknown) (unknown) [id number] (units (unkn own) date) unknown) (unknown) (no (unknown) (unknown) 05/26/22 (units (unkno wn) date) unknown) (unknown) (no (unknown) (unknown) [address] (units (unkn own) date) Street unknown) (unknown) (no (unknown) (unknown) 16:41. (units (unkno wn) date) unknown) (unknown) (no (unknown) (unknown) Accession (units (unkn own) date) Number: unknown) [id number] (unknown) (no (unknown) (unknown) Age/Sex: 61 / F (units (unknown) date) Date of Service: unknown) (unknown) (no (unknown) (unknown) [place] (units ( unknown) date) [id number] unknown) (unknown) (no (unknown) (unknown) Approved by: (units (u nknown) date) Anay Isabel, beryl) Polly on 05/26/2022 at 16:56 (unknown) (no (unknown) (unknown) COMPARISON: (units (un known) date) [facility], unknown) US, US PERIPH VENOUS LOW EXTREM BI, 05/06/2022, (unknown) (no (unknown) (unknown) : 1960 (units (unknown) date) Acct:[id number] unknown) (unknown) (no (unknown) (unknown) Dictated by: (units (u nknown) date) Anay Isabel, beryl) Polly on 05/26/2022 at 16:55 (unknown) (no (unknown) (unknown) FINDINGS: The (units ( unknown) date) common femoral, unknown) femoral and popliteal veins are normally (unknown) (no (unknown) (unknown) IMPRESSION: No (units (unknown) date) deep venous unknown) thrombosis. (unknown) (no (unknown) (unknown) INDICATIONS: (units (u nknown) date) SWELLING unknown) (unknown) (no (unknown) (unknown) [facility] (units (unknown) date) unknown) (unknown) (no (unknown) (unknown) Loc: [place] (units (unkno wn) date) unknown) (unknown) (no (unknown) (unknown) Ordering (units (unkno wn) date) Provider: unknown) Aubree Burch MD (unknown) (no (unknown) (unknown) PROCEDURE: US (units ( unknown) date) PERIPH VENOUS unknown) LOW EXTREM LT (unknown) (no (unknown) (unknown) Patient: (units (unkno wn) date) Nichol Meng R unknown) MR#: [id number] (unknown) (no (unknown) (unknown) Procedure: US (units ( unknown) date) periph venous unknown) low extrem lt (unknown) (no (unknown) (unknown) Real-time (units (unkn own) date) imaging, as well unknown) as color and pulse Doppler interrogation, were (unknown) (no (unknown) (unknown) Signed (units (unkno wn) date) unknown) (unknown) (no (unknown) (unknown) TECHNIQUE: (units (unk nown) date) unknown) (unknown) (no (unknown) (unknown) Ultrasound (units (unk nown) date) Report unknown) (unknown) (no (unknown) (unknown) compressible, (units ( unknown) date) and unknown) (unknown) (no (unknown) (unknown) fossa. (units (unkno wn) date) unknown) (unknown) (no (unknown) (unknown) free of (units (unkno wn) date) intraluminal unknown) thrombus. Color and pulse Doppler demonstrate normal (unknown) (no (unknown) (unknown) intraluminal (units (u nknown) date) flow. There is unknown) normal augmentation response to distal compression (unknown) (no (unknown) (unknown) maneuver. (units (unkn own) date) unknown) (unknown) (no (unknown) (unknown) performed of (units (u nknown) date) unknown) (unknown) (no (unknown) (unknown) phasic (units (unkno wn) date) unknown) (unknown) (no (unknown) (unknown) the lower (units (unkn own) date) extremity deep unknown) veins from the inguinal ligament to the popliteal Social History No information. Vital Signs No information.
--- NOTE | 2022-07-20 12:05 | ED Physician Documentation ---
History of Present Illness - Stated complaint Stated Complaint: WEAK - Chief complaint Chief Complaint: General - Additonal information Additional information: 62-year-old female is brought into the emergency department with her nephew in attendance for concerns of increasing weakness, failure to eat and alcohol use. The patient reports to me that about 7 to 10 days ago she came down with a fever cough and chills. She calls at the crud. She states that she has not been feeling well and simply has not been eating much. She is denying chest pain or shortness of air. She has had no vomiting or diarrhea. She denies melena or hematochezia. Denies urinary symptoms. The patient's son who is currently in [facility] had called my colleague prior to her ER arrival raising concern with him that he felt his mother was drinking to excess and he had hoped that we could compel her into alcohol rehabilitation. He had reported to my colleague that he felt his mom would minimize her drinking and her symptoms. The patient is for me quite alert and oriented X3. She ambulates independently and has no focal deficits. She is cognizant of the reason she is here in the emergency department. She tells me that she typically has 1 or 2 drinks a night. She does not want to elaborate on her drinking. She does not desire to go into drug or alcohol treatment. She feels that her son is overstepping his bounds. She reports that we can draw blood work if we think that it is necessary. She denies that she is trying to harm herself or anybody else. She does not desire to remain in the emergency department, be hospitalized or transferred elsewhere for psychiatric or drug alcohol use stabilization Review of Systems Constitutional: denies: Fever, Chills Eyes: reports: Reviewed and negative Ears: reports: Reviewed and negative Nose: denies: Congestion Cardiac: denies: Chest pain / pressure, Palpitations Respiratory: reports: Cough. denies: Dyspnea, Hemoptysis, Wheezing GI: denies: Abdominal Pain, Nausea, Vomiting, Hematemesis : reports: Reviewed and negative Neurologic: reports: Generalized weakness. denies: Seizure, Confused, Headache, Head injury, LOC PD PAST MEDICAL HISTORY - Past Medical History Cardiovascular: None Respiratory: None Neuro: None Endocrine/Autoimmune: None GI: Chronic diarrhea FIXING CARPENTER: None : None HEENT: None Psych: None Musculoskeletal: None Derm: None - Past Surgical History Past Surgical History: Yes General: Appendectomy, Colonoscopy /FIXING CARPENTER: Hysterectomy HEENT: Tonsil/Adenoidectomy - Present Medications Home Medications: Ambulatory Orders Medication Instructions Recorded Confirmed Meloxicam [Mobic] 7.5 mg PO BID PRN #20 tablet 01/24/22 - Allergies Allergies/Adverse Reactions: Allergies Allergy/AdvReac Type Severity Reaction Status Date / Time Penicillins Allergy Mild Unknown Verified 07/20/22 11:50 morphine Allergy Hallucinati Verified 07/20/22 11:50 ons - Social History Does the pt smoke?: Yes Smoking Status: Current every day smoker Does the pt drink ETOH?: Yes Does the pt have substance abuse?: No - POLST Patient has POLST: No PD ED PE EXPANDED - General General: Alert, No acute distress, Other (Appears older than stated age. Thin) - HEENT HEENT: PERRL, EOMI - Neck Neck: Supple w/out meningeal sx. No: Adenopathy - Cardiac Cardiac: Regular Rate, Regular Rhythm, Radial strong equal, Pedal strong equal, Cap refill < 2 sec - Respiratory Respiratory: Rhonchi (Generalized rhonchi and scattered wheeze). No: Distress - Abdomen Abdomen: Normal Bowel sounds. No: Tender to palpation - Derm Derm: Normal color, Warm and dry. No: Jaundiced - Neuro Neuro: Alert and Oriented X 3, CNII-XII intact, Normal speech, Other (Patient is ambulatory without assistance. She is able to sit up in bed and sit at the side of the bed without assistance. Fluid speech. She is oriented to person place and time. Her finger-nose exam is normal. Her gait is steady) - GCS Eye Opening: Spontaneous Motor: Obeys Commands Verbal: Oriented Total: 15 - Psych Psych: No: Suicidal, Homicidal, Anxious, Agitated, Auditory hallucinations, Visual hallucinations Results - Vitals Vitals: Vital Signs - 24 hr 07/20/22 11:41 Temperature 36.7 C Heart Rate 79 Respiratory 22 Rate Blood Pressure 182/83 H O2 Saturation 94 Oxygen O2 Source Room air - Labs Labs: Laboratory Tests 07/20/22 07/20/22 07/20/22 12:04 12:04 12:04 WBC 12.6 H RBC 3.91 L Hgb 12.8 Hct 36.2 L MCV 92.6 MCH 32.7 H MCHC 35.4 RDW 13.1 Plt Count 128 L MPV 9.3 Neut # (Auto) 10.4 H Lymph # (Auto) 0.9 L Hand # (Auto) 1.1 H Eos # (Auto) 0.2 Baso # (Auto) 0.0 Absolute Nucleated RBC 0.00 Band Neuts % (Manual) Not Reportable Abnorm Lymph % (Manual) Not Reportable Nucleated RBC % 0.0 Neutrophils # (Manual) Not Reportable Lymphocytes # (Manual) Not Reportable Monocytes # (Manual) Not Reportable Eosinophils # (Manual) Not Reportable Basophils # (Manual) Not Reportable Differential Comment MANUAL=AUTO DIFF Platelet Estimate NORMAL (130-450,000) Platelet Morphology NORMAL APPEARANCE RBC Morph Micro Appear NORMAL APPEARANCE Sodium 106 L* Potassium 2.9 L Chloride 67 L* Carbon Dioxide 26 Anion Gap 13.0 BUN 6 Creatinine 0.4 Estimated GFR (MDRD) 162 Glucose 106 H Calcium 8.6 Magnesium 1.6 L Total Bilirubin 0.9 AST 46 H ALT 32 Alkaline Phosphatase 103 Ammonia 15.4 Total Protein 8.0 Albumin 3.7 Globulin 4.3 H Albumin/Globulin Ratio 0.9 L Lipase 39 Salicylates < 6.0 Acetaminophen < 10 L Ethyl Alcohol < 5.0 - Rads (name of study) cxr Radiology: Final report received (No focal infiltrate seen. No pleural effusions or pneumothorax. Heart size is normal. No suspicious bony lesions. Overlying soft tissues appear unremarkable.) PD Medical Decision Making - ED course Complexity details: reviewed results, re-evaluated patient, considered differential, d/w family ED course: 62-year-old female was brought to the emergency department by her family for concerns of worsening weakness, poor appetite/anorexia and alcohol abuse. 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 Her son is currently in [facility]. The patient presents alert and oriented to person place and time. She has no focal deficits. She does endorse drinking 1-2 drinks daily though her family insists its much more. Her alcohol level today was not detected. She did not have any signs of withdrawal. Patient was adamant with this provider that her son is overstepping his boundaries. She does not desire alcohol treatment or rehabilitation. The patient clearly has a capacity to make this decision. She has had a cough for more than a week. Her chest x-ray showed no focal findings to suggest pneumonia, pleural effusion or pneumothorax. She was not labored. She was not hypoxic. We did obtain a CBC which showed Very mild leukocytosis. She did not have anemia. Her platelets were mildly low at 128. Though this was not a critical finding. Her electrolytes show a critically low sodium of 106. She has an associated decreased chloride as well. Her liver and renal function were without worrisome findings. Her ammonia level was not elevated. Tylenol and cell silicates level was absent. She did not appear to be under the influence of recreational drugs. I discussed with the patient the concern I had for this critically low sodium which likely reflects poor nutritional intake, anorexia as well as alcohol use. I offered to admit the patient to the hospital in order to obtain the appropriate controlled correction of her low sodium. She declined. 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 She did ask if she could come back on the weekend but I discussed that the sodium is something that needed to be corrected today. I did spend about 20 minutes at the bedside trying to discuss with the patient various ways in which we could get her to stay for treatment but she declined. Patient was aware that this critically low sodium could lead to seizures stroke and . Pt asked appropriate questions about her low sodium and how it could be corrected. She was also made aware that if she tried to correct it at home to rapidly similar occurrences could happen. Patient was able to verbalize back to me my concerns about her low sodium. 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 She is oriented to person place and time. She does have the capacity to make the decision to leave AGAINST MEDICAL ADVICE. I could not compel the patient to remain in the hospital. She was notified that she could return at any time should she choose for further care or evaluation. Departure - Departure Disposition: 07 Against Medical Advice Clinical Impression: Hyponatremia, Generalized weakness, Thrombocytopenia Condition: Serious Record reviewed to determine appropriate education?: Yes Instructions: ED Hyponatremia Comments: Nichol your family asked you to come to the hospital because they are concerned about your drinking. They have also noticed that you are not eating much or taking care of yourself. Here in the emergency department you have been alert oriented to person place and time. You are clear in your understanding about why you were brought to the hospital. You have declined evaluation and treatment for alcohol abuse. While here in the emergency department we did obtain lab work which showed a critically low sodium level of 106. For your sodium to be this low and for you to be awake and oriented, you likely have been developing low sodiums over a long period of time. However when the sodium is this low it needs to be corrected slowly. If the sodium level is corrected too quickly you do have the possibility of developing seizures strokes or even dying. If your sodium drops much lower you will . I have offered to admit you to this hospital for further treatment and management of your low sodium level. You have declined to stay in the hospital. I have attempted to find reasonable ways in which we could work with you and your family in order to get you to remain in the hospital but you have also declined the services. You do have the capacity to make these choices. I would encourage you to decrease the amount of water you are drinking by half and supplement that with some broth. Please discuss this ED visit with your doctor this afternoon in order to help make a plan to ensure your health and wellness. You may return at any time for further evaluation and treatment with no questions asked. I encourage you to please return for treatment
[2022-07-20 12:10] LABS: BASOPHILS % (AUTO) 0.2 %; EOSINOPHILS # (AUTO) 0.2 10^3/uL (0.0-0.7); EOSINOPHILS % (AUTO) 1.2 %; HCT - HEMATOCRIT 36.2 % (37.0-47.0); HGB - HEMOGLOBIN 12.8 g/dL (12.0-16.0); LYMPHOCYTES # (AUTO) 0.9 10^3/uL (1.5-3.5); LYMPHOCYTES % (AUTO) 6.8 %; MEAN CORPUSCULAR HEMOGLOBIN 32.7 pg (27.0-31.0); MEAN CORPUSCULAR HGB CONC 35.4 g/dL (32.0-36.0); MEAN CORPUSCULAR VOLUME 92.6 fL (81.0-99.0); MEAN PLATELET VOLUME 9.3 fL (7.9-10.8); MONOCYTES # (AUTO) 1.1 10^3/uL (0.0-1.0); MONOCYTES % (AUTO) 9.1 %; NEUTROPHILS # (AUTO) 10.4 10^3/uL (1.5-6.6); NEUTROPHILS % (AUTO) 82.3 %; PLT - PLATELET COUNT 128 10^3/uL (130-450); RED BLOOD COUNT 3.91 10^6/uL (4.20-5.40); RED CELL DISTRIBUTION WIDTH 13.1 % (12.0-15.0); WHITE BLOOD COUNT 12.6 x10^3/uL (4.8-10.8)
[2022-07-20] MEDS ORDERED: IPRATROPIUM/ALBUTEROL 3 ML NEB INH STA (12:12)
--- NOTE | 2022-07-20 12:25 | XRAY Report ---
PROCEDURE: Chest 1 View X-Ray INDICATIONS: cough TECHNIQUE: One view of the chest was acquired. COMPARISON: None. FINDINGS: Surgical changes and devices: None. Lungs and pleura: No pleural effusions or pneumothorax. Lungs are clear. Mediastinum: Mediastinal contours appear normal. Heart size is normal. Bones and chest wall: No suspicious bony lesions. Overlying soft tissues appear unremarkable. IMPRESSION: No focal infiltrates are seen. Reviewed by: Igor Bartlett MD on 07/20/2022 11:24 AM [facility] Approved by: Igor Bartlett MD on 07/20/2022 11:24 AM [facility] Station ID: [id number]
[2022-07-20 12:30] LABS: ACETAMINOPHEN < 10 ug/mL (10-30); ALBUMIN 3.7 g/dL (3.2-5.5); ALBUMIN/GLOBULIN RATIO 0.9 (1.0-2.2); ALKALINE PHOSPHATASE 103 IU/L (42-121); ALT ALANINE AMINOTRANSFERASE 32 IU/L (10-60); AST ASPARTATE AMINOTRANSFERASE 46 IU/L (10-42); BILIRUBIN,TOTAL 0.9 mg/dL (0.2-1.0); BUN - BLOOD UREA NITROGEN 6 mg/dL (6-20); CALCIUM 8.6 mg/dL (8.5-10.3); CARBON DIOXIDE - CO2 26 mmol/L (21-32); CREATININE 0.4 mg/dL (0.4-1.0); ETOH - ETHANOL < 5.0 mg/dL; GFR - MDRD 162 (>89); GLUCOSE 106 mg/dL (70-100); LIPASE 39 U/L (22-51); MAGNESIUM 1.6 mg/dL (1.7-2.8); POTASSIUM 2.9 mmol/L (3.5-5.0); SALICYLATE < 6.0 mg/dL
[2022-07-20 12:33] LABS: CHLORIDE 67 mmol/L (101-111); SODIUM 106 mmol/L (135-145)
[2022-07-20 12:39] LABS: DIFFERENTIAL COMMENT MANUAL=AUTO DIFF; PLATELET ESTIMATE, MANUAL NORMAL (130-450,000) (NORMAL); PLATELET MORPHOLOGY NORMAL APPEARANCE (NORMAL); RBC MORPHOLOGY (MULTIPLE) NORMAL APPEARANCE (NORMAL)
== END 2022-07-20 13:30 | disposition left against medical advice (07) ==
LOC: ED 11:11
DX: E87.1 Hypo-osmolality and hyponatremia (principal); D69.6 Thrombocytopenia, unspecified; E87.8 Other disorders of electrolyte and fluid balance, not elsewhere classified; F10.10 Alcohol abuse, uncomplicated; Y90.0 Blood alcohol level of less than 20 mg/100 ml; F17.200 Nicotine dependence, unspecified, uncomplicated; Z53.29 Procedure and treatment not carried out because of patient's decision for other reasons
CPT/HCPCS: 36415; 80053; 80307; 80320; 80329; 82140; 83690; 83735; 85025; 99283; 99284

== ENCOUNTER 2022-07-20 16:45 | Inpatient (IN) | payer BC ==
--- OUTSIDE RECORDS SUMMARY | 2022-07-20 16:55 | EXTERNAL MEDICAL SUMMARY RPT | Continuity of Care Document ---
:1960 Author Organization [place] Address [address] [place] [address] Phone Allergies and Intolerances date description facility type (no date) Penicillins [facility] (unknown) (no date) morphine [facility] (unknown) Encounters No information. Functional Status No information. Immunizations No information. Medications No information. Problems date description facility 2022-04-30 14:30 Fracture of unspecified part of neck of [facility] femur, initial 2022-04-30 17:22 Fracture of unspecified part of neck of [facility] femur, initial 2022-05-01 08:03 Fracture of unspecified part of neck of [facility] femur, initial 2022-05-01 09:43 Fracture of unspecified part of neck of [facility] femur, initial 2022-05-01 11:22 Fracture of unspecified part of neck of [facility] femur, initial 2022-05-01 14:59 Fracture of unspecified part of neck of [facility] femur, initial 2022-05-02 10:16 Fracture of unspecified part of neck of [facility] femur, initial 2022-05-02 10:48 Fracture of unspecified part of neck of [facility] femur, initial 2022-05-02 14:46 Fracture of unspecified part of neck of [facility] femur, initial 2022-05-02 15:59 Fracture of unspecified part of neck of [facility] femur, initial 2022-05-02 21:36 Fracture of unspecified part of neck of [facility] femur, initial 2022-05-04 08:54 Fracture of unspecified part of neck of [facility] femur, initial 2022-05-04 15:25 Fracture of unspecified part of neck of [facility] femur, initial 2022-05-05 09:26 Fracture of unspecified part of neck of [facility] femur, initial 2022-05-26 16:04 Effusion, [facility] ankle [facility] 2022-05-26 17:14 Effusion, [facility] Procedures No information. Results/Labs test date author facility value unit interpret ation Result panel 1 (unknown) (no (unknown) (unknown) (no value) (units (unk nown) date) unknown) (unknown) (no (unknown) (unknown) [id number] (units (unkn own) date) unknown) (unknown) (no (unknown) (unknown) 04/29/22 (units (unkno wn) date) unknown) (unknown) (no (unknown) (unknown) [id number] (units (unkn own) date) Street unknown) (unknown) (no (unknown) (unknown) Accession (units (unkn own) date) Number: unknown) [id number] (unknown) (no (unknown) (unknown) Accession (units (unkn own) date) Number: unknown) [id number] (unknown) (no (unknown) (unknown) Age/Sex: 61 / F (units (unknown) date) Date of Service: unknown) (unknown) (no (unknown) (unknown) [place], [place] (units ( unknown) date) [id number] unknown) (unknown) (no (unknown) (unknown) Approved by: [...] (unknown) (unknown) : 1960 (units (unknown) date) Acct:[id number] unknown) (unknown) (no (unknown) (unknown) Dictated by: [...] date) fall unknown) (unknown) (no (unknown) (unknown) [facility] (units (unknown) date) unknown) (unknown) (no (unknown) [...] nown) date) unknown) (unknown) (no (unknown) (unknown) [id number] (units (unkno wn) date) unknown) (unknown) (no [...] (unknown) (unknown) : 1960 (units (unknown) date) Acct:[id number] unknown) (unknown) (no (unknown) (unknown) Date of [...] date) Signs: unknown) (unknown) (no (unknown) (unknown) [facility] (units (unknown) date) [address] unknown) [place] [address] (unknown) (no (unknown) (unknown) Lab Data (units [...] date) EMS unknown) (unknown) (no (unknown) (unknown) [place] # (Auto) Not (units (unknown) date) Reportable unknown) (unknown) (no (unknown) (unknown) [place] % (Auto) Not (units (unknown) date) Reportable [...] (unknown) (unknown) Urine Specific (units (unknown) date) [place] 1.010 unknown) (unknown) (no (unknown) (unknown) Vital [...] Leila Souza D.O.> (unknown) (no (unknown) (unknown) [id number] (units (unkno wn) date) unknown) (unknown) (no [...] (unknown) (unknown) Accession Number: (units (unknown) date) [id number] ?? unknown) (unknown) (no (unknown) (unknown) Accession Number: (units (unknown) date) [id number] ?? unknown) (unknown) (no (unknown) (unknown) Acct:[id number] (units (unknown) date) unknown) (unknown) (no (unknown) [...] (unknown) (unknown) : 1960 (units (unknown) date) Acct:[id number] unknown) (unknown) (no (unknown) (unknown) : 1960 [...] (unknown) date) unknown) (unknown) (no (unknown) (unknown) [facility] (units (unknown) date) [address] [place] [address] Street unknown) [place] [address] (unknown) (no (unknown) (unknown) Lab Data (units [...] date) unknown) (unknown) (no (unknown) (unknown) MR#: [id number] (units (unknown) date) unknown) (unknown) (no (unknown) [...] date) EMS unknown) (unknown) (no (unknown) (unknown) [place] # (Auto) Not (units (unknown) date) Reportable unknown) (unknown) (no (unknown) (unknown) [place] # (Auto) (units ( unknown) date) unknown) (unknown) (no (unknown) (unknown) [place] % (Auto) Not (units (unknown) date) Reportable unknown) (unknown) (no (unknown) (unknown) [place] % (Auto) (units ( unknown) date) unknown) [...] rhythm (unit s (unknown) date) rate 66 MD interval unknown) 152 QRS 86 QTC 457 [...] (unknown) (unknown) Urine Specific (units (unknown) date) [place] 1.010 unknown) (unknown) (no (unknown) (unknown) Vital [...] be significant amount (unknown) (no (unknown) (unknown) [id number] (units (unkno wn) date) unknown) (unknown) (no [...] (unknown) (unknown) : 1960 (units (unknown) date) Acct:[id number] unknown) (unknown) (no (unknown) (unknown) Date Patient [...] blood pressure 110s/70s. (unknown) (no (unknown) (unknown) [facility] (units (unknown) date) [address] unknown) [place] [address] (unknown) (no (unknown) (unknown) Laboratory Results (units [...] (unknown) date) unknown) (unknown) (no (unknown) (unknown) [place] # (Auto) Not (units (unknown) date) Reportable unknown) (unknown) (no (unknown) (unknown) [place] # (Auto) (units ( unknown) date) unknown) (unknown) (no (unknown) (unknown) [place] % (Auto) Not (units (unknown) date) Reportable unknown) (unknown) (no (unknown) (unknown) [place] % (Auto) (units ( unknown) date) unknown) [...] (unknown) date) unknown) (unknown) (no (unknown) (unknown) [id number] (units (unkno wn) date) unknown) (unknown) (no [...] (unknown) (unknown) : 1960 (units (unknown) date) Acct:[id number] unknown) (unknown) (no (unknown) (unknown) Date Patient [...] this patient's care (unknown) (no (unknown) (unknown) [facility] (units (unknown) date) [address] [place] [address] unknown) [place] [address] (unknown) (no (unknown) (unknown) Laboratory (units (unk [...] (unknown) date) unknown) (unknown) (no (unknown) (unknown) [place] # (Auto) (units ( unknown) date) [address] unknown) (unknown) (no (unknown) (unknown) [place] # (Auto) (units ( unknown) date) Not Reportable unknown) (unknown) (no (unknown) (unknown) [place] % (Auto) (units ( unknown) date) 11.3 unknown) (unknown) (no (unknown) (unknown) [place] % (Auto) (units ( unknown) date) Not [...] (unknown) date) unknown) (unknown) (no (unknown) (unknown) [id number] (units (unkno wn) date) unknown) (unknown) (no [...] (unknown) (unknown) : 1960 (units (unknown) date) Acct:[id number] unknown) (unknown) (no (unknown) (unknown) Date Patient [...] this patient's care (unknown) (no (unknown) (unknown) [facility] (units (unknown) date) [address] unknown) [place] [address] (unknown) (no (unknown) (unknown) Laboratory Results (units [...] (unknown) date) unknown) (unknown) (no (unknown) (unknown) [place] # (Auto) 1000 (units (unknown) date) H unknown) (unknown) (no (unknown) (unknown) [place] # (Auto) Not (units (unknown) date) Reportable unknown) (unknown) (no (unknown) (unknown) [place] % (Auto) 11.3 (units (unknown) date) unknown) (unknown) (no (unknown) (unknown) [place] % (Auto) Not (units (unknown) date) Reportable [...] nown) date) unknown) (unknown) (no (unknown) (unknown) [id number] (units (unkno wn) date) unknown) (unknown) (no [...] (unknown) (unknown) : 1960 (units (unknown) date) Acct:[id number] unknown) (unknown) (no (unknown) (unknown) Date of [...] nknown) date) unknown) (unknown) (no (unknown) (unknown) [facility] (units (unknown) date) [address] [place] [address] Street unknown) [place] [address] (unknown) (no (unknown) (unknown) Left hip (units [...] Patient was unknown) subsequently transferred from the [facility] table (unknown) (no (unknown) (unknown) drilled. The [...] nown) date) unknown) (unknown) (no (unknown) (unknown) [id number] (units (unkn own) date) unknown) (unknown) (no (unknown) (unknown) 04/30/22 (units (unkno wn) date) unknown) (unknown) (no (unknown) (unknown) [address] [place] [address] (units (unknown) date) unknown) (unknown) (no (unknown) (unknown) 23:53. (units (unkno wn) date) unknown) (unknown) (no (unknown) (unknown) Accession Number: (units (unknown) date) [id number] unknown) (unknown) (no (unknown) (unknown) Age/Sex: 61 / F (units (unknown) date) Date of Service: unknown) (unknown) (no (unknown) (unknown) [place] [address] (unit s (unknown) date) unknown) (unknown) (no (unknown) (unknown) Approved by: Reji (units (unknown) date) Polly Fontaine on unknown) 05/01/2022 at 9:49 (unknown) (no (unknown) (unknown) COMPARISON: [facility] (units (unknown) date) [facility], CR, XR HIP unknown) W PEL IF DONE LT 2V, 04/29/2022, (unknown) (no (unknown) (unknown) : 1960 (units (unknown) date) Acct:[id number] unknown) (unknown) (no (unknown) (unknown) Dictated by: [...] internal fixation of (unknown) (no (unknown) (unknown) [facility] (units (unknown) date) unknown) (unknown) (no (unknown) [...] nown) date) unknown) (unknown) (no (unknown) (unknown) [id number] (units (unkno wn) date) unknown) (unknown) (no [...] (unknown) (unknown) : 1960 (units (unknown) date) Acct:[id number] unknown) (unknown) (no (unknown) (unknown) Date of [...] nknown) date) unknown) (unknown) (no (unknown) (unknown) [facility] (units (unknown) date) [address] unknown) [place] [address] (unknown) (no (unknown) (unknown) Left hip (units [...] Patient was unknown) subsequently transferred from the [facility] table (unknown) (no (unknown) (unknown) drilled. The [...] (unknown) date) unknown) (unknown) (no (unknown) (unknown) [id number] (units (unkno wn) date) unknown) (unknown) (no [...] (unknown) (unknown) : 1960 (units (unknown) date) Acct:[id number] unknown) (unknown) (no (unknown) (unknown) Date of [...] wn) date) unknown) (unknown) (no (unknown) (unknown) [facility] (units (unknown) date) [address] unknown) [place] [address] (unknown) (no (unknown) (unknown) Laboratory (units (unk [...] known) date) unknown) (unknown) (no (unknown) (unknown) [place] # (Auto) (units ( unknown) date) 1000 H unknown) (unknown) (no (unknown) (unknown) [place] % (Auto) (units ( unknown) date) 11.3 [...] (unknown) date) unknown) (unknown) (no (unknown) (unknown) [id number] (units (unkno wn) date) unknown) (unknown) (no [...] (unknown) (unknown) : 1960 (units (unknown) date) Acct:[id number] unknown) (unknown) (no (unknown) (unknown) Date Patient [...] date) history: unknown) (unknown) (no (unknown) (unknown) [facility] (units (unknown) date) [address] unknown) [place] [address] (unknown) (no (unknown) (unknown) Laboratory (units (unk [...] known) date) unknown) (unknown) (no (unknown) (unknown) [place] # (Auto) (units ( unknown) date) 1000 H unknown) (unknown) (no (unknown) (unknown) [place] % (Auto) (units ( unknown) date) 11.3 [...] (unknown) date) unknown) (unknown) (no (unknown) (unknown) [id number] (units (unkno wn) date) unknown) (unknown) (no [...] (unknown) (unknown) : 1960 (units (unknown) date) Acct:[id number] unknown) (unknown) (no (unknown) (unknown) Date Patient [...] (unknown) date) unknown) (unknown) (no (unknown) (unknown) [facility] (units (unknown) date) [address] [place] [address] unknown) [place] [address] (unknown) (no (unknown) (unknown) Laboratory Results (units [...] known) date) unknown) (unknown) (no (unknown) (unknown) [place] # (Auto) 1000 (units (unknown) date) H unknown) (unknown) (no (unknown) (unknown) [place] % (Auto) 11.3 (units (unknown) date) unknown) [...] be significant amount (unknown) (no (unknown) (unknown) [id number] (units (unkno wn) date) unknown) (unknown) (no [...] (unknown) (unknown) : 1960 (units (unknown) date) Acct:[id number] unknown) (unknown) (no (unknown) (unknown) Date of [...] this patient's care (unknown) (no (unknown) (unknown) [facility] (units (unknown) date) [address] unknown) [place] [address] (unknown) (no (unknown) (unknown) Labs (units (unkno [...] (unkn own) (unknown) (no date) (unknown) (unknown) [address] /ul (unkn own) (unknown) (no date) (unknown) [...] be significant amount (unknown) (no (unknown) (unknown) [id number] (units (unkno wn) date) unknown) (unknown) (no [...] (unknown) (unknown) : 1960 (units (unknown) date) Acct:[id number] unknown) (unknown) (no (unknown) (unknown) Date Patient [...] this patient's care (unknown) (no (unknown) (unknown) [facility] (units (unknown) date) [address] [facility] [address] unknown) [place] [address] (unknown) (no (unknown) (unknown) Labs (units (unkno [...] be significant amount (unknown) (no (unknown) (unknown) [id number] (units (unkno wn) date) unknown) (unknown) (no [...] (unknown) (unknown) : 1960 (units (unknown) date) Acct:[id number] unknown) (unknown) (no (unknown) (unknown) Date Patient [...] date) history: unknown) (unknown) (no (unknown) (unknown) [facility] (units (unknown) date) [address] unknown) [place] [address] (unknown) (no (unknown) (unknown) Labs (units (unkno [...] (unknown) date) unknown) (unknown) (no (unknown) (unknown) [id number] (units (unkno wn) date) unknown) (unknown) (no [...] (unknown) (unknown) : 1960 (units (unknown) date) Acct:[id number] unknown) (unknown) (no (unknown) (unknown) Date Patient [...] date) history: unknown) (unknown) (no (unknown) (unknown) [facility] (units (unknown) date) [address] unknown) [place] [address] (unknown) (no (unknown) (unknown) Laboratory (units (unk [...] wn) date) unknown) (unknown) (no (unknown) (unknown) [place] # (Auto) (units ( unknown) date) [address] unknown) (unknown) (no (unknown) (unknown) [place] # (Auto) (units ( unknown) date) unknown) (unknown) (no (unknown) (unknown) [place] % (Auto) (units ( unknown) date) 11.0 unknown) (unknown) (no (unknown) (unknown) [place] % (Auto) (units ( unknown) date) unknown) [...] (unknown) Patient: (units (unkno wn) date) Nichol Megn R unknown) MR#: [id number] (unknown) (no (unknown) [...] (unknown) date) unknown) (unknown) (no (unknown) (unknown) [id number] (units (unkno wn) date) unknown) (unknown) (no [...] (unknown) (unknown) : 1960 (units (unknown) date) Acct:[id number] unknown) (unknown) (no (unknown) (unknown) Date of [...] Coping with Grief (unknown) (no (unknown) (unknown) [facility] (units (unknown) date) [address] unknown) [place] [address] (unknown) (no (unknown) (unknown) Tyree Hickman MD [...] ibuprofen PRN unknown) (unknown) (no (unknown) (unknown) [place] # (Auto) 1100 (units (unknown) date) H unknown) (unknown) (no (unknown) (unknown) [place] % (Auto) 11.0 (units (unknown) date) unknown) [...] (unkn own) (unknown) (no date) (unknown) (unknown) [address] /ul (unkn own) (unknown) (no date) (unknown) [...] nown) date) unknown) (unknown) (no (unknown) (unknown) [id number] (units (unkn own) date) unknown) (unknown) (no (unknown) (unknown) 1. Left (units (unkno wn) date) intertrochanteric unknown) hip fracture with good alignment. (unknown) (no (unknown) (unknown) 05/04/22 (units (unkno wn) date) unknown) (unknown) (no (unknown) (unknown) [address] [place] [address] (units (unknown) date) unknown) (unknown) (no (unknown) (unknown) 2. Fracture of the (units (unknown) date) left ischial unknown) tuberosity with sclerosis. (unknown) (no (unknown) (unknown) 23:53. [place] (units ( unknown) date) unknown) (unknown) (no (unknown) (unknown) Accession Number: (units (unknown) date) [id number] unknown) (unknown) (no (unknown) (unknown) Accession Number: (units (unknown) date) [id number] unknown) (unknown) (no (unknown) (unknown) Age/Sex: 61 / F (units (unknown) date) Date of Service: unknown) (unknown) (no (unknown) (unknown) [place] [address] (unit s (unknown) date) unknown) (unknown) (no [...] hardware components (unknown) (no (unknown) (unknown) COMPARISON: [facility] (units (unknown) date) Hospital, CR, XR unknown) CHEST 1V, 04/29/2022, 23:53. (unknown) (no (unknown) (unknown) COMPARISON: [facility] (units (unknown) date) [facility], CR, XR HIP unknown) W PEL IF DONE LT 2V, 04/29/2022, (unknown) (no (unknown) (unknown) : 1960 (units (unknown) date) Acct:[id number] unknown) (unknown) (no (unknown) (unknown) Dictated by: [...] weakness, increased WBC (unknown) (no (unknown) (unknown) [facility] (units (unknown) date) unknown) (unknown) (no (unknown) [...] (unknown) date) unknown) (unknown) (no (unknown) (unknown) [id number] (units (unkno wn) date) unknown) (unknown) (no [...] Stat (unknown) (no (unknown) (unknown) Consult to MATERIAL PROCESSOR - (units (unknown) date) Saw Repairer unknown) Stat (unknown) (no (unknown) (unknown) Course (units (unkno wn) date) unknown) (unknown) (no (unknown) (unknown) Creatinine (units (unk nown) date) (0.52-1.04) mg/dL unknown) (unknown) (no (unknown) (unknown) Creatinine 0.25 (units (unknown) date) L (0.52-1.04) unknown) mg/dL (unknown) (no (unknown) (unknown) : 1960 (units (unknown) date) Acct:[id number] unknown) (unknown) (no (unknown) (unknown) Date of [...] date) Signs: unknown) (unknown) (no (unknown) (unknown) [facility] (units (unknown) date) [address] unknown) [place] [address] (unknown) (no (unknown) (unknown) Lab Data (units [...] (unknown) Lymph # (Auto) (units (unknown) date) (4491-2695) /uL unknown) (unknown) (no (unknown) (unknown) Lymph # (Auto) (units (unknown) date) 2200 (6977-3231) unknown) /uL (unknown) (no (unknown) (unknown) Lymph [...] date) EMS unknown) (unknown) (no (unknown) (unknown) [place] # (Auto) (units ( unknown) date) (0-900) /uL unknown) (unknown) (no (unknown) (unknown) [place] # (Auto) (units ( unknown) date) 1200 H (0-900) unknown) /uL (unknown) (no (unknown) (unknown) [place] % (Auto) (units ( unknown) date) (3-14) % unknown) (unknown) (no (unknown) (unknown) [place] % (Auto) (units ( unknown) date) 8.1 (3-14) % unknown) (unknown) (no (unknown) (unknown) Multivitamins (units ( unknown) date) (Multivitamin 1 unknown) Tablet) 1 tab PO DAILY ALFREDA (unknown) (no (unknown) (unknown) Neut # (Auto) (units ( unknown) date) (3370-3563) /uL unknown) (unknown) (no (unknown) (unknown) Neut # (Auto) (units ( unknown) date) [address] H unknown) (2450-6316) /uL (unknown) (no (unknown) (unknown) Neut % [...] (unknown) Ur Specific (units (un known) date) [place] <=1.005 unknown) (1.000-1.035) (unknown) (no (unknown) (unknown) Ur Specific (units (un known) date) [place] unknown) (1.000-1.035) (unknown) (no (unknown) (unknown) Ur [...] (unknown) date) unknown) (unknown) (no (unknown) (unknown) [id number] (units (unkno wn) date) unknown) (unknown) (no [...] 04/29/2022, 23:53. (unknown) (no (unknown) (unknown) COMPARISON:? [facility] (unit s (unknown) date) Hospital, CR, XR [...] frequent (unknown) (no (unknown) (unknown) Consult to MATERIAL PROCESSOR - (units (unknown) date) Saw Repairer Stat unknown) (unknown) (no (unknown) (unknown) Course (units (unkno wn) date) unknown) (unknown) (no (unknown) (unknown) Creatinine (units (unk nown) date) (0.52-1.04) mg/dL unknown) (unknown) (no (unknown) (unknown) Creatinine 0.25 L (units (unknown) date) (0.52-1.04) mg/dL unknown) (unknown) (no (unknown) (unknown) : 1960 (units (unknown) date) Acct:[id number] unknown) (unknown) (no (unknown) (unknown) Date of [...] date) ts unknown) (unknown) (no (unknown) (unknown) [facility] (units (unknown) date) [address] unknown) [place] [address] (unknown) (no (unknown) (unknown) Lab Data (units [...] (unknown) Lymph # (Auto) (units (unknown) date) (6898-3300) /uL unknown) (unknown) (no (unknown) (unknown) Lymph # (Auto) 2200 (unit s (unknown) date) (7227-0229) /uL unknown) (unknown) (no (unknown) (unknown) Lymph [...] date) EMS unknown) (unknown) (no (unknown) (unknown) [place] # (Auto) (units ( unknown) date) (0-900) /uL unknown) (unknown) (no (unknown) (unknown) [place] # (Auto) 1200 (units (unknown) date) H (0-900) /uL unknown) (unknown) (no (unknown) (unknown) [place] % (Auto) (units ( unknown) date) (3-14) % unknown) (unknown) (no (unknown) (unknown) [place] % (Auto) 8.1 (units (unknown) date) (3-14) [...] Neut # (Auto) (units ( unknown) date) (9207-7267) /uL unknown) (unknown) (no (unknown) (unknown) Neut # (Auto) 31005 (unit s (unknown) date) H (2865-6141) /uL unknown) (unknown) (no (unknown) (unknown) Neut [...] (NEGATIVE) (unknown) (no (unknown) (unknown) Ur Specific [place] (unit s (unknown) date) <=1.005 unknown) (1.000-1.035) (unknown) (no (unknown) (unknown) Ur Specific [place] (unit s (unknown) date) (1.000-1.035) unknown) (unknown) [...] date) 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 [facility] (unit s (unknown) date) Hospital, CR, XR unknown) CHEST 1V, 04/29/2022, 23:53. (unknown) (no (unknown) (unknown) COMPARISON:? [facility] (unit s (unknown) date) Hospital, CR, XR [...] Stat (unknown) (no (unknown) (unknown) Consult to MATERIAL PROCESSOR - (units (unknown) date) Saw Repairer Stat unknown) (unknown) (no (unknown) (unknown) Consult [...] (unknown) (unknown) : 1960 (units (unknown) date) Acct:[id number] unknown) (unknown) (no (unknown) (unknown) Date of [...] date) ts unknown) (unknown) (no (unknown) (unknown) [facility] (units (unknown) date) [address] [facility] [address] unknown) [place] [address] (unknown) (no (unknown) (unknown) Lab Data (units [...] (unknown) Lymph # (Auto) (units (unknown) date) (3914-0043) /uL unknown) (unknown) (no (unknown) (unknown) Lymph # (Auto) 2200 (unit s (unknown) date) (0316-7234) /uL unknown) (unknown) (no (unknown) (unknown) Lymph [...] date) EMS unknown) (unknown) (no (unknown) (unknown) [place] # (Auto) (units ( unknown) date) (0-900) /uL unknown) (unknown) (no (unknown) (unknown) [place] # (Auto) 1200 (units (unknown) date) H (0-900) /uL unknown) (unknown) (no (unknown) (unknown) [place] % (Auto) (units ( unknown) date) (3-14) % unknown) (unknown) (no (unknown) (unknown) [place] % (Auto) 8.1 (units (unknown) date) (3-14) [...] Neut # (Auto) (units ( unknown) date) (3119-1752) /uL unknown) (unknown) (no (unknown) (unknown) Neut # (Auto) 18784 (unit s (unknown) date) H (8316-1469) /uL unknown) (unknown) (no (unknown) (unknown) Neut [...] (NEGATIVE) (unknown) (no (unknown) (unknown) Ur Specific [place] (unit s (unknown) date) <=1.005 unknown) (1.000-1.035) (unknown) (no (unknown) (unknown) Ur Specific [place] (unit s (unknown) date) (1.000-1.035) unknown) (unknown) [...] date) 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 (unknown) (no (unknown) (unknown) COMPARISON:[facility] (unit s (unknown) date) Hospital, CR, [...] Stat (unknown) (no (unknown) (unknown) Consult to MATERIAL PROCESSOR - (units (unknown) date) Saw Repairer Stat unknown) (unknown) (no (unknown) (unknown) Consult [...] (unknown) (unknown) : 1960 (units (unknown) date) Acct:[id number] unknown) (unknown) (no (unknown) (unknown) Date of [...] date) ts unknown) (unknown) (no (unknown) (unknown) [facility] (units (unknown) date) [address] unknown) [place] [address] (unknown) (no (unknown) (unknown) Lab Data (units [...] (unknown) Lymph # (Auto) (units (unknown) date) (1504-0058) /uL unknown) (unknown) (no (unknown) (unknown) Lymph # (Auto) 2200 (unit s (unknown) date) (4735-1996) /uL unknown) (unknown) (no (unknown) (unknown) Lymph [...] date) EMS unknown) (unknown) (no (unknown) (unknown) [place] # (Auto) (units ( unknown) date) (0-900) /uL unknown) (unknown) (no (unknown) (unknown) [place] # (Auto) 1200 (units (unknown) date) H (0-900) /uL unknown) (unknown) (no (unknown) (unknown) [place] % (Auto) (units ( unknown) date) (3-14) % unknown) (unknown) (no (unknown) (unknown) [place] % (Auto) 8.1 (units (unknown) date) (3-14) [...] Neut # (Auto) (units ( unknown) date) (7933-7046) /uL unknown) (unknown) (no (unknown) (unknown) Neut # (Auto) 40308 (unit s (unknown) date) H (9380-3414) /uL unknown) (unknown) (no (unknown) (unknown) Neut [...] (NEGATIVE) (unknown) (no (unknown) (unknown) Ur Specific [place] (unit s (unknown) date) <=1.005 unknown) (1.000-1.035) (unknown) (no (unknown) (unknown) Ur Specific [place] (unit s (unknown) date) (1.000-1.035) unknown) (unknown) [...] date) 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 (unknown) (no (unknown) [...] (unknown) date) unknown) (unknown) (no (unknown) (unknown) [id number] (units (unkno wn) date) unknown) (unknown) (no [...] (unknown) (unknown) : 1960 (units (unknown) date) Acct:[id number] unknown) (unknown) (no (unknown) (unknown) Date Patient [...] this patient's care (unknown) (no (unknown) (unknown) [facility] (units (unknown) date) [address] unknown) [place] [address] (unknown) (no (unknown) (unknown) Laboratory (units (unk [...] wn) date) unknown) (unknown) (no (unknown) (unknown) [place] # (Auto) (units ( unknown) date) 1200 H unknown) (unknown) (no (unknown) (unknown) [place] # (Auto) (units ( unknown) date) unknown) (unknown) (no (unknown) (unknown) [place] % (Auto) (units ( unknown) date) 8.1 unknown) (unknown) (no (unknown) (unknown) [place] % (Auto) (units ( unknown) date) unknown) (unknown) (no (unknown) (unknown) Narrative: (units (unk nown) date) unknown) (unknown) (no (unknown) (unknown) Neut # (Auto) (units ( unknown) date) [address] H unknown) (unknown) (no (unknown) (unknown) Neut [...] (unknown) Ur Specific (units (un known) date) [place] <=1.005 unknown) (unknown) (no (unknown) (unknown) Ur Specific (units (un known) date) [place] unknown) (unknown) (no (unknown) (unknown) Ur Squamous [...] (unknown) date) unknown) (unknown) (no (unknown) (unknown) [id number] (units (unkno wn) date) unknown) (unknown) (no [...] (unknown) (unknown) : 1960 (units (unknown) date) Acct:[id number] unknown) (unknown) (no (unknown) (unknown) Date Patient [...] this patient's care (unknown) (no (unknown) (unknown) [facility] (units (unknown) date) [address] unknown) [place] [address] (unknown) (no (unknown) (unknown) Laboratory Results (units [...] wn) date) unknown) (unknown) (no (unknown) (unknown) [place] # (Auto) 1200 (units (unknown) date) H unknown) (unknown) (no (unknown) (unknown) [place] # (Auto) (units ( unknown) date) unknown) (unknown) (no (unknown) (unknown) [place] % (Auto) 8.1 (units (unknown) date) unknown) (unknown) (no (unknown) (unknown) [place] % (Auto) (units ( unknown) date) unknown) (unknown) (no (unknown) (unknown) Narrative: (units (unk nown) date) unknown) (unknown) (no (unknown) (unknown) Neut # (Auto) 03668 (unit s (unknown) date) H unknown) (unknown) [...] unknown) (unknown) (no (unknown) (unknown) Ur Specific [place] (unit s (unknown) date) <=1.005 unknown) (unknown) (no (unknown) (unknown) Ur Specific [place] (unit s (unknown) date) unknown) (unknown) (no [...] unknown) develops diarrhea (unknown) (no (unknown) (unknown) [id number] (units (unkno wn) date) unknown) (unknown) (no [...] (unknown) (unknown) : 1960 (units (unknown) date) Acct:[id number] unknown) (unknown) (no (unknown) (unknown) Date Patient [...] 4 weeks: Yes (unknown) (no (unknown) (unknown) [facility] (units (unknown) date) [address] [place] [address] unknown) [place] [address] (unknown) (no (unknown) (unknown) Jono her surrogate [...] wn) date) unknown) (unknown) (no (unknown) (unknown) [place] # (Auto) 1200 (units (unknown) date) H unknown) (unknown) (no (unknown) (unknown) [place] # (Auto) (units ( unknown) date) unknown) (unknown) (no (unknown) (unknown) [place] % (Auto) 8.1 (units (unknown) date) unknown) (unknown) (no (unknown) (unknown) [place] % (Auto) (units ( unknown) date) unknown) [...] (unknown) (no (unknown) (unknown) Neut # (Auto) 68247 (unit s (unknown) date) H unknown) (unknown) [...] Elvia Gtz unknown) (unknown) (no (unknown) (unknown) Psyche: [...] unknown) (unknown) (no (unknown) (unknown) Ur Specific [place] (unit s (unknown) date) <=1.005 unknown) (unknown) (no (unknown) (unknown) Ur Specific [place] (unit s (unknown) date) unknown) (unknown) (no [...] (unknown) date) unknown) (unknown) (no (unknown) (unknown) [id number] (units (unkno wn) date) unknown) (unknown) (no [...] date) unknown) (unknown) (no (unknown) (unknown) COMPARISON:? [facility] (unit s (unknown) date) Hospital, CR, XR unknown) CHEST 1V, 04/29/2022, 23:53. (unknown) (no (unknown) (unknown) COMPARISON:? [facility] (unit s (unknown) date) Hospital, CR, XR [...] (unknown) (unknown) : 1960 (units (unknown) date) Acct:[id number] unknown) (unknown) (no (unknown) (unknown) Date of [...] date) ts unknown) (unknown) (no (unknown) (unknown) [facility] (units (unknown) date) [address] unknown) [place] [address] (unknown) (no (unknown) (unknown) Lab Data (units [...] (unknown) Lymph # (Auto) (units (unknown) date) (3829-7791) /uL unknown) (unknown) (no (unknown) (unknown) Lymph # (Auto) 2200 (unit s (unknown) date) (3914-7554) /uL unknown) (unknown) (no (unknown) (unknown) Lymph [...] date) EMS unknown) (unknown) (no (unknown) (unknown) [place] # (Auto) (units ( unknown) date) (0-900) /uL unknown) (unknown) (no (unknown) (unknown) [place] # (Auto) 1200 (units (unknown) date) H (0-900) /uL unknown) (unknown) (no (unknown) (unknown) [place] % (Auto) (units ( unknown) date) (3-14) % unknown) (unknown) (no (unknown) (unknown) [place] % (Auto) 8.1 (units (unknown) date) (3-14) [...] Neut # (Auto) (units ( unknown) date) (3424-0835) /uL unknown) (unknown) (no (unknown) (unknown) Neut # (Auto) 80524 (unit s (unknown) date) H (1033-0696) /uL unknown) (unknown) (no (unknown) (unknown) Neut [...] (NEGATIVE) (unknown) (no (unknown) (unknown) Ur Specific [place] (unit s (unknown) date) <=1.005 unknown) (1.000-1.035) (unknown) (no (unknown) (unknown) Ur Specific [place] (unit s (unknown) date) (1.000-1.035) unknown) (unknown) [...] date) 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 (unknown) (no (unknown) [...] (unknown) who arrived from (units (unknown) date) [facility] yesterday and unknown) observe that his [...] she develops diarrhea (unknown) (no (unknown) (unknown) [id number] (units (unkno wn) date) unknown) (unknown) (no [...] (unknown) (unknown) : 1960 (units (unknown) date) Acct:[id number] unknown) (unknown) (no (unknown) (unknown) Date Patient [...] date) history: unknown) (unknown) (no (unknown) (unknown) [facility] (units (unknown) date) [address] unknown) [place] [address] (unknown) (no (unknown) (unknown) Jono her (units [...] own) date) unknown) (unknown) (no (unknown) (unknown) [place] # (Auto) (units ( unknown) date) 1200 H unknown) (unknown) (no (unknown) (unknown) [place] # (Auto) (units ( unknown) date) 900 unknown) (unknown) (no (unknown) (unknown) [place] # (Auto) (units ( unknown) date) unknown) (unknown) (no (unknown) (unknown) [place] % (Auto) (units ( unknown) date) 10.6 unknown) (unknown) (no (unknown) (unknown) [place] % (Auto) (units ( unknown) date) 8.1 unknown) (unknown) (no (unknown) (unknown) [place] % (Auto) (units ( unknown) date) unknown) [...] Neut # (Auto) (units ( unknown) date) [address]706 H unknown) (unknown) (no (unknown) (unknown) Neut [...] (unknown) Ur Specific (units (un known) date) [place] <=1.005 unknown) (unknown) (no (unknown) (unknown) Ur Specific (units (un known) date) [place] unknown) (unknown) (no (unknown) (unknown) Ur Squamous [...] (unknown) date) unknown) (unknown) (no (unknown) (unknown) [id number] (units (unkno wn) date) unknown) (unknown) (no [...] (unknown) (unknown) : 1960 (units (unknown) date) Acct:[id number] unknown) (unknown) (no (unknown) (unknown) Date Patient [...] date) history: unknown) (unknown) (no (unknown) (unknown) [facility] (units (unknown) date) [address] unknown) [place] [address] (unknown) (no (unknown) (unknown) Jono her (units [...] own) date) unknown) (unknown) (no (unknown) (unknown) [place] # (Auto) (units ( unknown) date) 1200 H unknown) (unknown) (no (unknown) (unknown) [place] # (Auto) (units ( unknown) date) 900 unknown) (unknown) (no (unknown) (unknown) [place] # (Auto) (units ( unknown) date) unknown) (unknown) (no (unknown) (unknown) [place] % (Auto) (units ( unknown) date) 10.6 unknown) (unknown) (no (unknown) (unknown) [place] % (Auto) (units ( unknown) date) 8.1 unknown) (unknown) (no (unknown) (unknown) [place] % (Auto) (units ( unknown) date) unknown) [...] Neut # (Auto) (units ( unknown) date) 43938 H unknown) (unknown) (no (unknown) (unknown) Neut [...] (unknown) Ur Specific (units (un known) date) [place] <=1.005 unknown) (unknown) (no (unknown) (unknown) Ur Specific (units (un known) date) [place] unknown) (unknown) (no (unknown) (unknown) Ur Squamous [...] nown) date) unknown) (unknown) (no (unknown) (unknown) [id number] (units (unkn own) date) unknown) (unknown) (no (unknown) (unknown) 05/06/22 (units (unkno wn) date) unknown) (unknown) (no (unknown) (unknown) [address] [place] [address] (units (unknown) date) unknown) (unknown) (no (unknown) (unknown) Accession (units (unkn own) date) Number: unknown) [id number] (unknown) (no (unknown) (unknown) Age/Sex: 61 / F (units (unknown) date) Date of Service: unknown) (unknown) (no (unknown) (unknown) [place] (units ( unknown) date) [id number] unknown) (unknown) (no (unknown) (unknown) Approved by: (units (u nknown) date) marshal Lopez M.D. on 05/06/2022 at 16:58 (unknown) (no (unknown) (unknown) Bilateral lower (units (unknown) date) extremity soft unknown) tissue edema can be seen. (unknown) (no (unknown) (unknown) COMPARISON: (units (un known) date) None. unknown) (unknown) (no (unknown) (unknown) : 1960 (units (unknown) date) Acct:[id number] unknown) (unknown) (no (unknown) (unknown) Dictated by: (units (u nknown) date) beryl Lopez) Polly on 05/06/2022 at 16:58 (unknown) (no (unknown) (unknown) FINDINGS: (units (unkn own) date) unknown) (unknown) (no (unknown) (unknown) IMPRESSION: (units (un known) date) unknown) (unknown) (no (unknown) (unknown) INDICATIONS: (units (u nknown) date) RECEPT HIP unknown) SURERY. BILATERAL SWELLING. (unknown) (no (unknown) (unknown) [facility] (units (unknown) date) unknown) (unknown) (no (unknown) [...] (unknown) date) unknown) (unknown) (no (unknown) (unknown) [id number] (units (unkno wn) date) unknown) (unknown) (no [...] (unknown) (unknown) : 1960 (units (unknown) date) Acct:[id number] unknown) (unknown) (no (unknown) (unknown) Date Patient [...] date) history: unknown) (unknown) (no (unknown) (unknown) [facility] (units (unknown) date) [address] unknown) [place] [address] (unknown) (no (unknown) (unknown) Jono her (units [...] (unknown) date) unknown) (unknown) (no (unknown) (unknown) [place] # (Auto) (units ( unknown) date) 900 unknown) (unknown) (no (unknown) (unknown) [place] % (Auto) (units ( unknown) date) 13.2 [...] rule out DVT. (unknown) (no (unknown) (unknown) [id number] (units (unkno wn) date) unknown) (unknown) (no [...] (unknown) (unknown) : 1960 (units (unknown) date) Acct:[id number] unknown) (unknown) (no (unknown) (unknown) Date Patient [...] date) history: unknown) (unknown) (no (unknown) (unknown) [facility] (units (unknown) date) [address] unknown) [place] [address] (unknown) (no (unknown) (unknown) Jono burton (units [...] (unknown) date) unknown) (unknown) (no (unknown) (unknown) [place] # (Auto) (units ( unknown) date) 900 unknown) (unknown) (no (unknown) (unknown) [place] % (Auto) (units ( unknown) date) 13.2 [...] to weakness and (unknown) (no (unknown) (unknown) [id number] (units (unkno wn) date) unknown) (unknown) (no [...] Routine (unknown) (no (unknown) (unknown) Consult to MATERIAL PROCESSOR - (units (unknown) date) Saw Repairer Stat unknown) (unknown) (no (unknown) (unknown) Consult [...] (unknown) (unknown) : 1960 (units (unknown) date) Acct:[id number] unknown) (unknown) (no (unknown) (unknown) Date Patient [...] (units ( unknown) date) postop hospital unknown) [facility] care is medically necessary on a (unknown) (no (unknown) (unknown) [facility] (units (unknown) date) [address] unknown) [place] [address] (unknown) (no (unknown) (unknown) LLE swelling (units [...] (unknown) date) unknown) (unknown) (no (unknown) (unknown) [place] # (Auto) 1200 (units (unknown) date) H unknown) (unknown) (no (unknown) (unknown) [place] % (Auto) 13.8 (units (unknown) date) unknown) [...] (unknown) Per Elvia Gtz, (units (unknown) date) HOME ENERGY CONSULTANT: unknown) (unknown) (no (unknown) (unknown) Physician (units [...] date) unknown) (unknown) (no (unknown) (unknown) Jameson Guevaar DO (units (unknown) date) unknown) (unknown) (no [...] Qty: 20 0RF (unknown) (no (unknown) (unknown) [id number] (units (unkno wn) date) unknown) (unknown) (no [...] Routine (unknown) (no (unknown) (unknown) Consult to MATERIAL PROCESSOR - (units (unknown) date) Saw Repairer Stat unknown) (unknown) (no (unknown) (unknown) Consult [...] (unknown) (unknown) : 1960 (units (unknown) date) Acct:[id number] unknown) (unknown) (no (unknown) (unknown) Date Patient [...] (units ( unknown) date) postop hospital unknown) [facility] care is medically necessary on a (unknown) (no (unknown) (unknown) [facility] (units (unknown) date) [address] unknown) [place] [address] (unknown) (no (unknown) (unknown) LLE swelling (units [...] (unknown) date) unknown) (unknown) (no (unknown) (unknown) [place] # (Auto) 1200 (units (unknown) date) H unknown) (unknown) (no (unknown) (unknown) [place] % (Auto) 13.8 (units (unknown) date) unknown) [...] (unknown) Per Elvia Gtz, (units (unknown) date) HOME ENERGY CONSULTANT: unknown) (unknown) (no (unknown) (unknown) Physician (units [...] nown) date) unknown) (unknown) (no (unknown) (unknown) [id number] (units (unkn own) date) unknown) (unknown) (no (unknown) (unknown) 05/26/22 (units (unkno wn) date) unknown) (unknown) (no (unknown) (unknown) [address] (units (unkn own) date) Street unknown) (unknown) (no (unknown) (unknown) 16:41. (units (unkno wn) date) unknown) (unknown) (no (unknown) (unknown) Accession (units (unkn own) date) Number: unknown) [id number] (unknown) (no (unknown) (unknown) Age/Sex: 61 / F (units (unknown) date) Date of Service: unknown) (unknown) (no (unknown) (unknown) [place] (units ( unknown) date) [address] unknown) (unknown) (no (unknown) (unknown) Approved by: (units (u nknown) date) Anay Isabel, beryl) Polly on 05/26/2022 at 16:56 (unknown) (no (unknown) (unknown) COMPARISON: (units (un known) date) [facility], unknown) US, US PERIPH VENOUS LOW EXTREM BI, 05/06/2022, (unknown) (no (unknown) (unknown) : 1960 (units (unknown) date) Acct:[id number] unknown) (unknown) (no (unknown) (unknown) Dictated by: [...] date) SWELLING unknown) (unknown) (no (unknown) (unknown) [facility] (units (unknown) date) unknown) (unknown) (no (unknown) [...]
[2022-07-20 17:58] LABS: THYROID STIMULATING HORMONE 0.48 uIU/mL (0.34-5.60)
[2022-07-20 18:00] LABS: FREE T4 (FREE THYROXINE) 1.36 ng/dL (0.58-1.64)
[2022-07-20] MEDS ORDERED: SODIUM CHLORIDE 0.9% 1,000 ML IV STA (19:58)
[2022-07-20] MEDS ORDERED: ONDANSETRON 4 MG/2 ML VIAL IVP PRN (19:59)
[2022-07-20] MEDS ORDERED: ACETAMINOPHEN 500 MG TABLET PO PRN (19:59)
--- NOTE | 2022-07-20 20:16 | ED Physician Documentation ---
History of Present Illness - Stated complaint Stated Complaint: WEAKNESS, HALLUCINATION - Chief complaint Chief Complaint: General - Additonal information Additional information: Please see my note documented earlier today. This is a 62-year-old female who was compelled by her family to return to the emergency department for a previous finding of severe hyponatremia. She had been feeling generally weak and unwell for about 7 to 10 days. She does have a history of drinking daily. Patient reports only 1-2 drinks a night though her family reports that she minimizes it. On the initial ED presentation earlier in the shift she was alert and oriented x3. She was very aware of her circumstances and the reason she had return to the emergency department. When I offered admission for treatment of her hyponatremia she declined and she had at that time the capacity to do so. She was subsequently discharged AGAINST MEDICAL ADVICE. [facility]. [facility] an GOMEZ but they declined to do that as they also felt she had the capacity to decline medical care. However over the course of the afternoon that her family was able to talk her into returning to the ER. She remains alert well-appearing without confusion and at this time she is agreeable to treatment for her hyponatremia. Review of Systems Constitutional: denies: Fever, Chills Ears: reports: Reviewed and negative Nose: reports: Reviewed and negative Throat: reports: Reviewed and negative Cardiac: reports: Reviewed and negative Respiratory: reports: Reviewed and negative : reports: Reviewed and negative Skin: reports: Reviewed and negative Neurologic: reports: Generalized weakness. denies: Focal weakness, Numbness, Confused, Headache, Head injury, LOC PD PAST MEDICAL HISTORY - Past Medical History Cardiovascular: None Respiratory: None Neuro: None Endocrine/Autoimmune: None GI: Chronic diarrhea ASSEMBLY LINE INSPECTOR: None : None HEENT: None Psych: None Musculoskeletal: None Derm: None - Past Surgical History Past Surgical History: Yes General: Appendectomy, Colonoscopy /ASSEMBLY LINE INSPECTOR: Hysterectomy HEENT: Tonsil/Adenoidectomy - Present Medications Home Medications: Ambulatory Orders Medication Instructions Recorded Confirmed Meloxicam [Mobic] 7.5 mg PO BID PRN #20 tablet 01/24/22 - Allergies Allergies/Adverse Reactions: Allergies Allergy/AdvReac Type Severity Reaction Status Date / Time Penicillins Allergy Mild Unknown Verified 07/20/22 17:18 morphine Allergy Hallucinati Verified 07/20/22 17:18 ons - Social History Does the pt smoke?: Yes Smoking Status: Current every day smoker Does the pt drink ETOH?: Yes Does the pt have substance abuse?: No - POLST Patient has POLST: No PD ED PE NORMAL - General General: Alert and oriented X 3, No acute distress, Well developed/nourished - HEENT HEENT: Atraumatic, Moist mucous membranes - Neck Neck: Supple, no meningeal sign, No adenopathy - Cardiac Cardiac: RRR, No murmur - Respiratory Respiratory: No respiratory distress, Clear bilaterally - Abdomen Abdomen: Normal bowel sounds, Soft, Non tender - Back Back: No CVA TTP, No spinal TTP - Derm Derm: Normal color, Warm and dry, No rash - Extremities Extremities: No deformity, No tenderness to palpate, Normal ROM s pain - Neuro Neuro: Alert and oriented X 3, inventory control assistant 2-12 intact Eye Opening: Spontaneous Motor: Obeys Commands Verbal: Oriented GCS Score: 15 Results - Vitals Vitals: Vital Signs - 24 hr 07/20/22 07/20/22 07/20/22 17:08 20:33 21:00 Temperature 36.4 C L 37.0 C Heart Rate 78 80 95 Respiratory 16 20 24 Rate Blood Pressure 142/91 H 185/96 H 152/94 H O2 Saturation 98 86 L 96 Oxygen O2 Source Nasal cannula Oxygen Flow Rate 2 - Labs Labs: Laboratory Tests 07/20/22 07/20/22 07/20/22 12:04 20:35 20:35 Hgb 13.3 Hct 36.5 L Sodium 108 L* Potassium 3.0 L Chloride 69 L* Carbon Dioxide 26 Anion Gap 13.0 BUN 5 L Creatinine 0.3 L Estimated GFR (MDRD) 226 Glucose 96 Calcium 8.8 TSH 0.48 Free T4 1.36 - Rads (name of study) cxr Radiology: Final report received (no acute pulmonary process) PD Medical Decision Making - ED course Complexity details: reviewed results, re-evaluated patient, considered differential, d/w patient ED course: 62-year-old female returns to the emergency department for evaluation of hyponatremia. She had left earlier in my shift AMA. Please review that chart and documentation for further information. On representation to the emergency department she remains alert and oriented with no focal deficits. Her sodium is 108. We will use normal saline to slowly correct her sodium. The goal rate will be correction of 0.5 mEq/h to prevent central pontine myelinolysis. Sodiums will be checked every 4-6 hours. Patient denies that she is taking any previously prescribed medications. She is a pack per day tobacco user. Chest x-ray is without acute focal findings to suggest mass. She does have a history of alcohol use but minimizes her alcohol intake. She does not appear to have any acute withdrawal. Unfortunately there are no beds available to admit to overnight so the patient will continue to board in the emergency department. pt will be followed up by my colleagues pending bed availability Departure - Departure Disposition: [facility] DC/[place] Clinical Impression: Hyponatremia Condition: Serious
[2022-07-20 20:44] LABS: HCT - HEMATOCRIT 36.5 % (37.0-47.0); HGB - HEMOGLOBIN 13.3 g/dL (12.0-16.0)
[2022-07-20 20:57] LABS: CALCIUM 8.8 mg/dL (8.5-10.3); CREATININE 0.3 mg/dL (0.4-1.0)
--- NOTE | 2022-07-20 21:46 | XRAY Report ---
PROCEDURE: Chest 1 View X-Ray INDICATIONS: chest pain TECHNIQUE: One view of the chest was acquired. COMPARISON: Chest x-ray 07/20/2022. FINDINGS: Surgical changes and devices: None. Lungs and pleura: No pleural effusions or pneumothorax. Lungs are clear. Mediastinum: Mediastinal contours appear normal. Heart size is normal. Bones and chest wall: No suspicious bony lesions. Overlying soft tissues appear unremarkable. IMPRESSION: No acute pulmonary process. Reviewed by: Anay Isabel MD on 07/20/2022 9:44 PM PST Approved by: Anay Isabel MD on 07/20/2022 9:44 PM PST Station ID: [id number]
[2022-07-21 05:22] LABS: BASOPHILS % (AUTO) 0.1 %; EOSINOPHILS % (AUTO) 0.1 %; HCT - HEMATOCRIT 34.6 % (37.0-47.0); HGB - HEMOGLOBIN 12.7 g/dL (12.0-16.0); LYMPHOCYTES % (AUTO) 8.6 %; MEAN CORPUSCULAR HEMOGLOBIN 33.4 pg (27.0-31.0); MEAN CORPUSCULAR HGB CONC 36.7 g/dL (32.0-36.0); MEAN CORPUSCULAR VOLUME 91.1 fL (81.0-99.0); MEAN PLATELET VOLUME 9.6 fL (7.9-10.8); MONOCYTES # (AUTO) 1.4 10^3/uL (0.0-1.0); MONOCYTES % (AUTO) 12.4 %; NEUTROPHILS # (AUTO) 8.8 10^3/uL (1.5-6.6); NEUTROPHILS % (AUTO) 78.5 %; PLT - PLATELET COUNT 137 10^3/uL (130-450); WHITE BLOOD COUNT 11.2 x10^3/uL (4.8-10.8)
[2022-07-21 05:35] LABS: BUN - BLOOD UREA NITROGEN < 5 mg/dL (6-20); CALCIUM 8.4 mg/dL (8.5-10.3); CARBON DIOXIDE - CO2 27 mmol/L (21-32); CREATININE 0.3 mg/dL (0.4-1.0); GFR - MDRD 226 (>89); GLUCOSE 92 mg/dL (70-100)
[2022-07-21 06:02] LABS: CHLORIDE 75 mmol/L (101-111); POTASSIUM 2.4 mmol/L (3.5-5.0); SODIUM 115 mmol/L (135-145)
[2022-07-21] MEDS ORDERED: SODIUM CHLORIDE 0.9% 1,000 ML IV STA (06:17)
[2022-07-21] MEDS ORDERED: MAGNESIUM SULFATE 2 GRAM 2 GM/50 ML BAG IV ONE (06:17)
[2022-07-21] MEDS: POTASSIUM CHLOR 10 MEQ/100 ML 10 MEQ/100 ML BAG IV SCH ×8 (06:29→21:28)
[2022-07-21] MEDS ORDERED: PANTOPRAZOLE 40 MG TABLET PO SCH (07:00)
[2022-07-21] MEDS ORDERED: THIAMINE INJ 100 MG in SODIUM CHLORIDE 0.9% 50 ML IV STA (07:17)
--- NOTE | 2022-07-21 10:22 | ED Physician Documentation ---
ED Addendum - Addendum Addendum: 07/21/22 10:20 Spoke with son/POA by phone. He is in [place], available at: [phone] Slowly improving hyponatremia and worse hypokalemia. Related to alcoholism and poor/no PO intake. Ordered thiamine. Soc Wk c/s Trending radha 07/21/22 11:13 A floor bed became available and I presented the case to Dr. Singletary for admission at this time.
[2022-07-21 11:30] LABS: BUN - BLOOD UREA NITROGEN < 5 mg/dL (6-20); CALCIUM 8.4 mg/dL (8.5-10.3); CARBON DIOXIDE - CO2 27 mmol/L (21-32); CREATININE 0.3 mg/dL (0.4-1.0); GFR - MDRD 226 (>89); GLUCOSE 84 mg/dL (70-100); POTASSIUM 2.8 mmol/L (3.5-5.0)
[2022-07-21 11:32] LABS: CHLORIDE 78 mmol/L (101-111); SODIUM 117 mmol/L (135-145)
[2022-07-21] MEDS ORDERED: SODIUM CHLORIDE FLUSH 0.9% 10 ML SYRINGE IVP PRN (12:03)
[2022-07-21] MEDS ORDERED: ONDANSETRON 4 MG/2 ML VIAL IVP PRN (12:03)
[2022-07-21] MEDS ORDERED: PROCHLORPERAZINE 10 MG/2 ML VIAL IVP PRN (12:03)
[2022-07-21] MEDS ORDERED: LORazepam 2 MG/ML VIAL IVP PRN (12:06)
[2022-07-21 12:28] LABS: BASOPHILS % (AUTO) 0.1 %; EOSINOPHILS % (AUTO) 0.2 %; HCT - HEMATOCRIT 36.4 % (37.0-47.0); LYMPHOCYTES # (AUTO) 0.8 10^3/uL (1.5-3.5); LYMPHOCYTES % (AUTO) 6.9 %; MEAN CORPUSCULAR HEMOGLOBIN 32.9 pg (27.0-31.0); MEAN CORPUSCULAR HGB CONC 35.7 g/dL (32.0-36.0); MEAN CORPUSCULAR VOLUME 92.2 fL (81.0-99.0); MEAN PLATELET VOLUME 9.1 fL (7.9-10.8); MONOCYTES # (AUTO) 1.5 10^3/uL (0.0-1.0); MONOCYTES % (AUTO) 13.5 %; PLT - PLATELET COUNT 120 10^3/uL (130-450); RED BLOOD COUNT 3.95 10^6/uL (4.20-5.40); RED CELL DISTRIBUTION WIDTH 13.2 % (12.0-15.0); WHITE BLOOD COUNT 11.4 x10^3/uL (4.8-10.8)
--- NOTE | 2022-07-21 12:30 | HISTORY & PHYSICAL EXAMINATION ---
Chief Complaint - Chief Complaint Chief Complaint: Brought in by family d/t poor oral intake and Hx alcohol abuse History of Present Illness - Admitted From Admitted From:: ED - History Obtained From History obtained from: ED provider and the pt - History of Present Illness HPI Comment/Other: This is a 62-year-old white female with a history of falls that resulted in a left elbow fracture in 05/16, that needed surgery and then needed surgical revision because of a fall. She has a history of alcohol abuse and is a smoker. The patient has had "the crud" that started about 5 days ago. She has been taking in very little liquids or nutrition according to the family. The POA who is in [place], called the ER yesterday stating that family would bring in his mother because of these concerns and that we should be aware that she minimizes her alcohol intake. The patient did arrive to the ER and had labs drawn which showed a sodium level of 106. She was urged to be admitted to the hospital because of a critical low sodium but she left AMA, being able to make decisions then. At home family members urged her to return and she did come back to the ER the same day. She has been started on IV saline. The ED provider has reached out to speak to the Hospitalist team regarding management, and she will now be admitted to inpatient status for further management of her hyponatremia, anorexia and history of alcohol abuse. The patient is very somnolent. She says she has been like this for about 2 or 3 days, started after she caught the "crud". She says she is sleeping most of the day and hardly drinking or eating. She denies nausea vomiting and has chronic diarrhea for years which has not changed. She denies pleuritic pain, anginal pain or abdominal pain or cramping. She is not sure if she has had a fever. She denies nausea or vomiting. We discussed her CODE BLUE wishes and she wants to be a full code. 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 Living arrangement: At home Living Situation: With family Social History Notes: She smokes 1 and a half a pack of cigarettes a day and has been smoking for over 40 years. She drinks up to 4 glasses of wine on a daily basis. - Substance History Use: Uses substance without health or social issues: Tobacco Abuse: Recurrent use of substance despite neg consequences: Alcohol (Suspect that frequent falls are from this) - POLST Patient has POLST: No Meds/Allgy - Home Medications Home Medications: Ambulatory Orders Medication Instructions Recorded Confirmed No Known Home Medications 07/21/22 07/21/22 - Allergies Allergies/Adverse Reactions: Allergies Allergy/AdvReac Type Severity Reaction Status Date / Time Penicillins Allergy Mild Unknown Verified 07/20/22 17:18 morphine Allergy Hallucinati Verified 07/20/22 17:18 ons Review of Systems - Constitutional Constitutional: reports: Fatigue, Fever, Weakness, Poor appetite - Respiratory Respiratory: reports: Cough, Sputum production - Gastrointestinal Gastrointestinal: reports: Diarrhea (chronic for many years) - All Other Systems All Other Systems: reports: Reviewed and negative Exam - Vital Signs Reviewed Vital Signs: Yes Vital Signs: Vital Signs x48h Temp Pulse Resp BP Pulse Ox 07/21/22 11:00 36.7 C 77 18 163/77 H 98 07/21/22 09:00 74 19 149/82 H 96 07/21/22 07:00 77 16 133/74 H 99 07/21/22 05:00 77 19 169/79 H 100 - Physical Exam General Appearance: positive: No acute distress, Lethargic (awakens, answers with slurring and alls quickly asleep), Other (Cachectic. Is wel kempt.) Eyes Bilateral: positive: No lid inflammation ENT: positive: Dry mucous membranes Neck: positive: Nml inspection, No JVD Respiratory: positive: No respiratory distress, Breath sounds nml Cardiovascular: positive: Regular rate & rhythm, No murmur Abdomen: positive: Non-tender, Nml bowel sounds, No distention Skin: positive: Warm, Dry Extremities: positive: Non-tender, No pedal edema Neurologic/Psychiatric: positive: Other (Lethargic, awakens and answers appropriately, without slurring, and falls asleep mid-sentence.) Conclusion/Plan - Problem List (1) Hyponatremia Conclusion/Plan: We suspect this is hypovolemic hyponatremia from poor oral intake recently from pooir oral intake. Or, she may have a syndrome like beer Potomania, from taking an excessive free water in the form of alcohol.. Plan: Begin the patient on IV NS. The plan is to continue correction of her serum sodium at no more than 6 to 8 mEq per 24 hours, to prevent neurologic problems Follow serum Na every 8-12 hours (2) Hypokalemia Conclusion/Plan: This is also likely related to her poor oral intake but there is also history of chronic diarrhea where she could also be losing potassium Plan: Begin IV K riders. Place on telemetry. Follow BMP every 8-12 hours (3) Alcohol abuse Conclusion/Plan: She denies ever having withdrawal. She does admit to 4 glasses of's and fentanyl per day Plan: We will start CIWA protocol and prn low-dose Benzo's Because she is already so somnolent, no scheduled Librium will be ordered. SW consult regarding alcoholism. (4) Cough Conclusion/Plan: She has a wet productive cough. Her cough is very weak because she is also very somnolent, for unclear reason (got no Benzo's for withdrawal for example). Chest x-ray showed no active disease. She only had a COVID test no other portion of the respiratory panel was ordered by ED providers. Plan: Will obtain sputum for culture. Will obtain a full respiratory PCR If she has influenza, will start Tamiflu (5) Hypersomnolence Conclusion/Plan: She says she has felt tired and sleepy like this for about 3 days and her viral syndrome started about 5 days ago. Plan: Since she was only tested for COVID by the ED provider, will order an entire respiratory PCR panel as she might have the flu. If she has influenza, will start Tamiflu and order isolation Continue iv hydration and symptomatic support Treat the electrolyte abnormalites, which may also cause fatigue. (6) Cachexia Conclusion/Plan: Her BMI is 13. The family reported her poor oral intake to the ED provider. Plan: Continue with IV hydration. Nutrition consult to increase calories and protein - Lab Results Fish Bones: 07/21/22 12:22 07/21/22 12:22 - Diagnostic Imaging Results Diagnostic Imaging Results: positive: Final report reviewed - Other Other Results/Comments: Attestation: The patient is expected to be discharged or transferred to another facility within 96 hours: Yes.
[2022-07-21 12:40] LABS: BILIRUBIN,DIRECT 0.1 mg/dL (0.1-0.5); BILIRUBIN,TOTAL 0.6 mg/dL (0.2-1.0); TOTAL PROTEIN 6.7 g/dL (6.7-8.2)
[2022-07-21 12:49] LABS: ALBUMIN 2.9 g/dL (3.2-5.5); ALBUMIN/GLOBULIN RATIO 0.8 (1.0-2.2); ALKALINE PHOSPHATASE 88 IU/L (42-121); ALT ALANINE AMINOTRANSFERASE 26 IU/L (10-60); AST ASPARTATE AMINOTRANSFERASE 30 IU/L (10-42); BILIRUBIN,TOTAL 0.5 mg/dL (0.2-1.0); BUN - BLOOD UREA NITROGEN < 5 mg/dL (6-20); CALCIUM 8.1 mg/dL (8.5-10.3); CARBON DIOXIDE - CO2 26 mmol/L (21-32); CREATININE < 0.3 mg/dL (0.4-1.0); GLUCOSE 83 mg/dL (70-100); POTASSIUM 2.8 mmol/L (3.5-5.0); TOTAL PROTEIN 6.5 g/dL (6.7-8.2)
[2022-07-21 12:52] LABS: CHLORIDE 79 mmol/L (101-111); SODIUM 117 mmol/L (135-145)
[2022-07-21 12:59] LABS: INR 0.9 (0.8-1.2); PT - PROTHROMBIN TIME 10.4 secs (9.9-12.6)
[2022-07-21] MEDS: MULTIVITAMIN 10 ML, THIAMINE INJ 100 MG, FOLIC ACID INJ 1 MG in SODIUM CHLORIDE 0.9% 1,... IV SCH (13:00)
[2022-07-21] MEDS: SODIUM CHLORIDE 0.9% 1,000 ML IV SCH ×2 (13:00→22:47)
[2022-07-21] MEDS: SODIUM CHLORIDE FLUSH 0.9% 10 ML SYRINGE IVP SCH (18:35)
[2022-07-21 19:08] LABS: B. PARAPERTUSSIS- RESP PCR PAN NOT DETECTED; B. PERTUSSIS- RESP PCR PANEL NOT DETECTED; C. PNEUMONIAE- RESP PCR PANEL NOT DETECTED; CORONAVIRUS 229E-RESP PCR NOT DETECTED; CORONAVIRUS HKU1-RESP PCR NOT DETECTED; CORONAVIRUS NL63-RESP PCR NOT DETECTED; CORONAVIRUS OC43-RESP PCR NOT DETECTED; HUMAN METAPNEUMOVIRUS NOT DETECTED; INFLUENZA A H3- RESP PCR PANEL DETECTED; INFLUENZA B - RESP PCR PANEL NOT DETECTED; M. PNEUMONIAE- RESP PCR PANEL NOT DETECTED; PARAINFLUENZA VIRUS 1 NOT DETECTED; PARAINFLUENZA VIRUS 2 NOT DETECTED; PARAINFLUENZA VIRUS 3 NOT DETECTED; PARAINFLUENZA VIRUS 4 NOT DETECTED; RHINOVIRUS/ENTEROVIRUS NOT DETECTED; RSV- RESP PCR PANEL NOT DETECTED; SARS-CoV-2 -RESP PCR PANEL NOT DETECTED
[2022-07-21] MEDS: OSELTAMIVIR 75 MG CAPSULE PO SCH (21:25)
[2022-07-22] MEDS: SODIUM CHLORIDE FLUSH 0.9% 10 ML SYRINGE IVP SCH ×3 (00:06→16:37)
[2022-07-22 05:25] LABS: MAGNESIUM 1.5 mg/dL (1.7-2.8); PHOSPHORUS 1.4 mg/dL (2.5-4.6)
[2022-07-22] MEDS ORDERED: THIAMINE INJ 100 MG in SODIUM CHLORIDE 0.9% 50 ML IV SCH (09:00)
[2022-07-22] MEDS: MULTIVITAMIN 10 ML, THIAMINE INJ 100 MG, FOLIC ACID INJ 1 MG in SODIUM CHLORIDE 0.9% 1,... IV SCH (09:11)
[2022-07-22] MEDS: OSELTAMIVIR 75 MG CAPSULE PO SCH ×2 (09:36→20:16)
[2022-07-22] MEDS ORDERED: MAGNESIUM SULFATE 2 GRAM 2 GM/50 ML BAG IV ONE (13:11)
[2022-07-22] MEDS ORDERED: POTASSIUM PHOSPHATE 21 MMOL in SODIUM CHLORIDE 0.9% 250 ML IV ONE ×2 (13:12→20:00)
--- NOTE | 2022-07-22 15:13 | CT Report ---
PROCEDURE: HEAD WO INDICATIONS: AMS, hypersomnolent x 2-3 days TECHNIQUE: Noncontrast 4.5 mm thick angled axial sections acquired from the foramen magnum to the vertex. For r adiation dose reduction, the following was used: automated exposure control, adjustment of mA and/or kV according to patient size. COMPARISON: Correlation is made with the accompanying CT examinations. FINDINGS: Image quality: Motion artifact is noted. There is streak artifact seen through the skull base. CSF spaces: Basal cisterns are patent. No extra-axial fluid collections. Ventricles are normal in size and shape. Brain: No midline shift. No intracranial masses or hemorrhage. Wren-white matter interface is norm al. Skull and face: Calvarium and visualized facial bones are intact, without suspicious lesions. Sinuses: Visualized sinuses and mastoids are clear. IMPRESSION: Limited intracranial study, without a cause of the patient's presenting symptoms identified. No intracranial hemorrhage is seen. Reviewed by: Igor Bartlett MD on 07/22/2022 2:12 PM [place] Approved by: Igor Bartlett MD on 07/22/2022 2:12 PM [facility] Station ID: [id number]
--- NOTE | 2022-07-22 15:14 | CT Report ---
PROCEDURE: PELVIS WO INDICATIONS: Fell x3 in past 2 days TECHNIQUE: Noncontrast 3 mm axial sections acquired through the bony pelvis, with coronal and sagittal reformatt ing. For radiation dose reduction, the following was used: automated exposure control, adjustment of mA and/or kV according to patient size. COMPARISON: CT of abdomen and pelvis dated 10/13/2016.. FINDINGS: Image quality: Diagnostic. Being hardening artifacts are noted from left hip surgical hardware. Bones: There is prior internal fixation of left proximal femur with intramedullary tye and surgical screws seen in place. There is no gross hardware loosening or failure. Acute-appearing compression deformity involving L5 vertebral body is noted, new since 04/27/2022 study with near complete loss of L5 vertebral body height. Subacute appearing intertrochanteric fracture of proximal left femur is seen with near anatomic left femoral alignment. There is also suggestion of subacute appearing fracture involving lateral portion of left inferior pubic ramus with callus formation at fracture site. No other fracture or dislocation is seen. No evidence of avascular necrosis of femoral head. Osteoarthritic changes are noted through out bony pelvis. No suspicious bony lesions. Soft tissues: There is no pelvic free fluid or free air. Bladder is distended and shows no gross eileen dder wall abnormality. Sigmoid diverticulosis is seen without CT evidence of acute diverticulitis. No pelvic lymphadenopathy by size criteria. No gross soft tissue mass or fluid collection is seen. No a bnormal soft tissue calcifications. IMPRESSION: 1. Acute-appearing compression deformity involving L5 vertebral body with near complete loss of L5 ve rtebral body height new since 04/27/2022 study. 2. Patient is status post internal fixation of a intertrochanteric fracture of left proximal femur wi th anatomic left hip alignment. No gross hardware loosening or failure is seen. 3. Subacute appearing fracture involving lateral aspect of left inferior pubic ramus near ischial tub erosity. 4. No other fracture or dislocation is noted. Bilateral hip joint osteoarthritis. No evidence of avas cular necrosis of femoral head. 5. No gross pelvic soft tissue abnormalities. No free fluid or free air. Reviewed by: Reji Fontaine MD on 07/22/2022 3:13 PM PST Approved by: Reji Fontaine MD on 07/22/2022 3:13 PM PST Station ID: [id number]
--- NOTE | 2022-07-22 15:15 | CT Report ---
PROCEDURE: CERVICAL SPINE WO INDICATIONS: fell x3 in past 2 days, hit back of head each time TECHNIQUE: Noncontrast 3 mm thick sections acquired from the skull base to the T4 level. Sagittal and coronal r eformats were then constructed. For radiation dose reduction, the following was used: automated exp osure control, adjustment of mA and/or kV according to patient size. COMPARISON: Correlation is made with the accompanying CT examinations, 07/22/2022. FINDINGS: Image quality: Excellent. Bones: No fractures or dislocations. Visualized superior ribs are intact. Moderate to severe disc space narrowing can be seen at C5-C6. Mild retrolisthesis is seen at C5-C6. A t C6-C7, there is moderate disc space narrowing. Posteriorly directed endplate osteophytes are seen a t C6-C7. Focal degenerative change can also be seen involving the C1-C2 interface anteriorly. Milder degenerative changes are seen elsewhere. Soft tissues: Prevertebral soft tissues are normal in thickness. No paravertebral hematomas. No ap ical pneumothoraces. Erythematous changes can be seen within the visualized lung apices. Atheroscler otic calcification is seen. IMPRESSION: No acute fracture is identified. Cervical spine degenerative changes are seen, which are worst inferiorly. Reviewed by: Igor Bartlett MD on 07/22/2022 2:14 PM [facility] Approved by: Igor Bartlett MD on 07/22/2022 2:14 PM [facility] Station ID: [id number]
--- NOTE | 2022-07-22 15:26 | CT Report ---
PROCEDURE: Lower Extremity Bilat W/O INDICATIONS: Fell 3 times in past 2 days TECHNIQUE: Noncontrast 1 mm axial sections acquired from above the distal femur to the bottom of the calcaneus, with coronal and sagittal reformats. For radiation dose reduction, the following was used: automate d exposure control, adjustment of mA and/or kV according to patient size. COMPARISON: Foot radiograph dated 04/02/2022 and ankle radiograph dated 02/03/2022.. FINDINGS: Image quality: Excellent. Bones: There is osteopenia. Moderate bilateral tricompartmental osteoarthritis is seen with joint sp rosangela narrowing, subchondral sclerosis and marginal osteophyte formation. Moderate osteoarthritic frank es are also noted throughout bilateral ankle and foot with joint space narrowing and subchondral scle rosis. No acute fracture or dislocation. No suspicious intraosseous lesion. Soft tissues: There is no significant knee joint effusion. No abnormal soft tissue calcifications. N o significant tibiotalar or subtalar joint effusion is seen. Visualized lower leg muscles and tendons shows no gross abnormality. Bilateral Achilles tendons are grossly intact. IMPRESSION: 1. Osteopenia. Osteoarthritic changes are seen throughout bilateral visualized lower extremities. No acute fracture or dislocation. No suspicious intraosseous lesion. 2. No gross soft tissue abnormality is seen in bilateral lower extremities. No significant joint effu fredrick. No evidence of full-thickness tendon rupture. Reviewed by: Reji Fontaine MD on 07/22/2022 3:25 PM PST Approved by: Reji Fontaine MD on 07/22/2022 3:25 PM PST Station ID: [id number]
--- NOTE | 2022-07-22 15:28 | CT Report ---
PROCEDURE: CHEST WO INDICATIONS: cough and hypoxia TECHNIQUE: Noncontrast 1mm axial images were acquired from the pulmonary apices to the posterior costophrenic an gles. Axial 5 mm soft tissue kernel reconstructions were performed as well as 8 mm axial MIP and cor onal and sagittal 5 mm reformations. For radiation dose reduction, the following was used: automate d exposure control, adjustment of mA and/or kV according to patient size. COMPARISON: Correlation is made with the company CT examinations, 07/22/2022. FINDINGS: Image quality: Excellent. Lungs and pleura: Within the right upper lobe, there is a spiculated solid mass with central cavitat ion that measures 13 x 13 mm in greatest axial dimension, with a craniocaudal extent of 17 mm, as see n on series 4 image 109 and on series 9 image 43. Scattered foci of poorly defined tree-in-bud type opacity can be seen involving the lungs, particular ly involving the right middle lobe and both lower lobes. There is a presumed dependent atelectasis is seen at both lung bases. No pleural effusions or pneumothorax. Central and peripheral airways are patent and normal in calibe r. Mediastinum: Heart size is normal. No pericardial effusion. Advanced coronary calcification can be seen. A large mucin lymph nodes are seen, including a precarinal lymph node on series 3 image 30 donavon uring 15 x 20 mm in greatest axial dimension. Thoracic aorta and central pulmonary arteries are dawson l in size. Esophagus is normal in caliber. No hiatal hernia. Bones and chest wall: At T4, there is a chronic appearing anterior extra deformity, without acute fe atures. There is a right scaphoid percent loss of height anteriorly. There is a chronic appearing T12 anterior wedge deformity seen, with 30% loss of height anterior leg. Focal T12-L1 degenerative frank e can be seen. There is a mild L1 anterior wedge deformity, approximately 10%. At L3, there is a cent ral compression deformity, with approximately 30% loss of height. No acute appearing vertebral body c ompression fractures. Foci of bony sclerosis can be seen within the L1, L2, and L3 levels No axillary or supraclavicular adenopathy by size criteria. The thyroid is normal in size and there are no incidental findings. Abdomen: Visualized upper abdominal solid organs and bowel loops appear normal in the absence of con trast. IMPRESSION: Spiculated 17 mm mass involving the right upper lobe with internal cavitation. This is highly suspici ous for primary pulmonary neoplasm. Please consider a dedicated PET CT for further evaluation. Enlarged mediastinal lymph nodes are seen, which are likely metastatic. Tree-in-bud type opacity can be seen involving the lower lungs, particularly in the right middle lobe and both lower lobes. These are nonspecific, yet they are attributed to infection. Chronic appearing compression of arteries can be seen involving T4, T12, L1, and L3. No definite, acu te fractures are seen. If there is focal tenderness or other suspicion for an acute fracture, please consider follow-up MRI. Areas of bony sclerosis can be seen involving L1, L2, and L3. A benign process is suspected, although differential diagnosis would include metastatic disease. Note: Findings and recommendations discussed by telephone with Dr. Kirstin Singletary at 2:24 PM Yudelka petty on 07/14/2022. Reviewed by: Igor Bartlett MD on 07/22/2022 2:26 PM [place] Approved by: Igor Bartlett MD on 07/22/2022 2:26 PM [place] Station ID: [id number]
--- NOTE | 2022-07-22 15:31 | PROVIDER PROGRESS NOTE ---
Assessment/Plan - Problem List (1) Obtundation Assessment/Plan: When I met her yesterday, she said she has felt tired and sleepy for about 3 days and her viral syndrome started about 5 days ago. Today she is even more somnolent than yesterday, did not awaken for breakfast or lunch or while being visited by family members. When she had a coughing spell, that I and the 2 family members witnessed, she awoke and had slurred speech, but was able to communicate with her son on . Her Resp PCR was done after admission, not in ED and she did test pos for Influenza A yesterday evening. Perhaps the flu is causing this weakness and somnolence. The family members visiting (nephew and [id number]), and her son on , gave me details that this is much sleepier than she was yesterday or the io day. Also, learned that she had fallen 3 times in the past [address] was done in ER, upon chart review. Also learned that she does not take narcotics or sedatives and this is also not likely to be withdrawal from meth, as she is not a meth user or drug user, the son said. Plan: STAT CTs of head, C-spine, pelvis and legs ordered. Continue iv hydration and symptomatic support during her Flu Will assure she is not correcting serum Na too rapidly, followserum Na q8 h. Continue to treat all the electrolyte abnormalites, which may also cause lethargy. (2) Freq falls (at home) She could not give me a detailed or prolonged history when I met her yesterday, but answered appropriately. Today there is a nephew and [id number] in the room and at the same time her son who is in [place] was on FaceT and we all spoke. They told me there is a history of 3 falls that happened in the last several days, 1 on 07/19 when she was stepping into a sunken living room in her home and fell backward. Then 2 more falls happened on 07/20, both when she was getting out of this nephew's car and she fell backward into the passenger seat, hitting her back of her head on the dashboard. There is a long Hx of falls, which I learned from reading her entire EMR today. These have caused elbow trauma, disruption of elbow hardware, a pelvic fracture and a hip fracture. Due to concerned that these recent falls may have caused trauma or intracranial hemorrhage, leading to today's obtundation, STAT CTs were ordered of the head, C-spine, pelvis and lower extremities. The results showed she did not have any acute intracranial abnormality including no brain hemorrhage. C-spine has been cleared. She does have an L5 compression fracture that is acute, and new since April of this year. Other vertebra have old compressions. The legs showed no fractures or dislocations, but osteopenia reported. Plan: Will order a lidocaine patch over the L5 area When she is more awake we will start PT and OT for rehab (3) Influenza infection She has had a cough and fatigue and anorexia for 5 days. She was only tested for COVID in the ED at presentation. I ordered complete PCR respiratory testing last evening and it is positive for influenza A Plan: Tamiflu was ordered to start last night Will de-escalate her from a regular diet to clear liquids or pured (4) Cough Conclusion/Plan: She has a wet productive cough. But her cough is very weak and she is very somnolent Chest x-ray showed no active disease. She only had a COVID test no other portion of the respiratory panel was ordered by ED providers. I ordered complete PCR respiratory testing last evening and it is positive for influenza A. A CT chest was therefore done today, while she was in CT scanner for the head and C-spine. The CT chest has a spiculated mass in her RUL, very suspicious for cancer, and enlarged mediastinal lymph nodes, probably mets; this report was called to me by reading Radiologist. Also seen were "tree-in-bud" changes Plan: We ordered sputum for culture, if she can bring up sputum. She has been started on oral Tamiflu (5) Hyponatremia Conclusion/Plan: We suspected this is hypovolemic hyponatremia from poor oral intake recently. Or, she may have a syndrome like beer Potomania, from taking in excessive free water (in the form of alcohol). t admission to me, she started with a serum Na of 117, Plan: Continue on IV NS. The plan is to continue correction of her serum sodium at no more than 8 mEq per 24 hours, to prevent neurologic problems Follow serum Na every 8-12 hours (6) Hypokalemia Conclusion/Plan: This is also likely related to her poor oral intake but there is also history of chronic diarrhea where she could also be losing potassium Plan: Begin IV K riders. Place on telemetry. Follow BMP every 8-12 hours (7) Alcohol abuse Conclusion/Plan: She denies ever having withdrawal. She did tell me at admission, that she drinks 4 glasses of Zinfindel per day Plan: Ordered CIWA protocol and prn low-dose Benzo's Because she was already so somnolent, no scheduled Librium was ordered. SW consult regarding alcoholism when more alert (8) Moderate protein calorie malnutrition Conclusion/Plan: Her BMI is 16. The family reported her poor oral intake for an unknown duration. Per our Car [employer], she has had nutritional intake of less than 50% of recommended for 1 week. She has muscle wasting in the temporal region and loss of subcutaneous fat in the ocular region. Plan: Continue with IV hydration. Nutrition consult was ordered to increase calories and protein, as we advance her diet. (9) Lung mass Because of her cough in a smoker, and chest x-ray that showed no infiltrates or mass, she underwent a CT of the chest. This was read as having a spiculated lesion in the right upper lobe and enlarged mediastinal lymph nodes consistent with metastasis. This is very likely from her heavy smoking history. I went back into her room and informed the family and son on FaceTime from [place], all the results of the above and this finding. She was asleep and did not hear this. Plan: The son Jono, her DPOA, is planning to leave [place] tonight and will be here in 24 hours. - Current Meds Current Meds: Current Medications Generic Name Dose Route Start Last Admin Trade Name Nevaeh PRN Reason Stop Dose Admin Sodium Chloride 1,000 mls @ 83.33 mls/hr 07/21/22 13:00 07/22/22 09:15 Normal Saline 0.9% IV 0 mls/hr .Q12H1M ALFREDA Infusion Multivitamins 10 ml/ Thiamine 1,011.2 mls @ 100 mls/hr 07/21/22 13:00 07/22/22 09:11 HCl 100 mg/ Folic Acid 1 mg/ IV 100 mls/hr Sodium Chloride DAILY ALFREDA Administration Oseltamivir Phosphate 75 mg 07/21/22 21:00 07/22/22 09:36 Oseltamivir 75 Mg Capsule PO 07/26/22 09:01 75 mg BID ALFREDA Administration Sodium Chloride 10 ml 07/21/22 17:00 07/22/22 09:36 Sodium Chloride Flush 0.9% 10 Ml Syringe IVP 10 ml 0100,0900,1700 ALFREDA Administration - Lab Result Fish Bone Diagrams: 07/21/22 12:22 07/21/22 12:22 - Additional Planning My Orders: My Active Orders 07/21/22 17:00 Sodium Chloride Flush 0.9% [Normal Saline Flush 0.9%] 10 ml IVP 0100,0900,1700 07/21/22 19:24 Isolation [Infection Precautions] [RC] QSHIFT 07/21/22 21:00 Oseltamivir [Tamiflu] 75 mg PO BID 07/22/22 Breakfast DIET [Dysphagia - Minced and Moist] [DIET] 07/22/22 13:12 Potassium Phosphate 21 mmol Sodium Chloride 0.9% [Normal Saline 0.9%] 250 ml IV ONCE 07/22/22 Dinner Clear Liquid Diet [DIET] 07/22/22 20:00 Potassium Phosphate 21 mmol Sodium Chloride 0.9% [Normal Saline 0.9%] 250 ml IV ONCE 07/23/22 05:00 BMP - BASIC METABOLIC PANEL [CHEM] DAILYLAB CBC - COMP BLD CT W/AUTO DIFF [HEME] DAILYLAB MAGNESIUM [CHEM] DAILYLAB PHOSPHORUS [CHEM] DAILYLAB 07/24/22 05:00 BMP - BASIC METABOLIC PANEL [CHEM] DAILYLAB MAGNESIUM [CHEM] DAILYLAB PHOSPHORUS [CHEM] DAILYLAB 07/25/22 05:00 BMP - BASIC METABOLIC PANEL [CHEM] DAILYLAB MAGNESIUM [CHEM] DAILYLAB PHOSPHORUS [CHEM] DAILYLAB 07/26/22 05:00 BMP - BASIC METABOLIC PANEL [CHEM] DAILYLAB Subjective - Subjective Nursing Reports: Other (RN reports that she has not woken up for breakfast or for lunch. She has a wet cough but is not expectorating it) Objective Vital Signs: Vital Signs - 24 hr 07/21/22 07/21/22 07/21/22 17:00 20:00 20:44 Temperature 37.1 C 36.9 C Heart Rate [ 81 88 Monitoring electrodes] Heart Rate [ Radial] Respiratory 16 16 Rate Blood Pressure 164/73 H 168/80 H [Right Brachial artery] O2 Saturation 94 If not protocol 1 3 : Oxygen Flow, liters/minute 07/21/22 07/22/22 07/22/22 21:27 00:05 05:00 Temperature 36.8 C 36.5 C Heart Rate [ 80 84 Monitoring electrodes] Heart Rate [ Radial] Respiratory 20 18 Rate Blood Pressure 173/76 H 157/76 H [Right Brachial artery] O2 Saturation 94 92 94 If not protocol 3 3 3 : Oxygen Flow, liters/minute 07/22/22 07/22/22 07:45 11:42 Temperature 36.7 C 36.9 C Heart Rate [ Monitoring electrodes] Heart Rate [ 81 75 Radial] Respiratory 16 17 Rate Blood Pressure 157/69 H 167/74 H [Right Brachial artery] O2 Saturation 93 96 If not protocol 3 3 : Oxygen Flow, liters/minute Oxygen O2 Source Nasal cannula Oxygen Flow Rate 2 I&O (Last 24 Hrs): Intake and Output Totals x24h 07/20/22 07/21/22 07/22/22 23:59 23:59 23:59 Intake Total 3745.534 972.187 Output Total 1200 1900 Balance 2545.534 -927.813 General: Other (Obtunded, awakens to touch and painful stimuli, not to voice) HEENT: Other (Dry oral mucosa, skin is taut on her whole face with sunken eyes) Neck: Supple, No JVD Neuro: Other (Obtunded) Cardiovascular: Regular rate, No murmurs Respiratory: No respiratory distress, Wheezes (poor air movement) Abdomen: Soft Extremities: No clubbing, No edema, Other (muscle wasting) - Results Results: Laboratory Results WBC 11.4 x10^3/uL (4.8-10.8) H 07/21/22 12: RBC 3.95 10^6/uL (4.20-5.40) L 07/21/22 12:22 Hgb 13.0 g/dL (12.0-16.0) 07/21/22 12: Hct 36.4 % (37.0-47.0) L 07/21/22 12: MCV 92.2 fL (81.0-99.0) 07/21/22 12:22 MCH 32.9 pg (27.0-31.0) H 07/21/22 12:22 MCHC 35.7 g/dL (32.0-36.0) 07/21/22 12:22 RDW 13.2 % (12.0-15.0) 07/21/22 12:22 Plt Count 120 10^3/uL (130-450) L 07/21/22 12:22 MPV 9.1 fL (7.9-10.8) 07/21/22 12:22 Neut # (Auto) 9.0 10^3/uL (1.5-6.6) H 07/21/22 12:22 Lymph # (Auto) 0.8 10^3/uL (1.5-3.5) L 07/21/22 12:22 Ferry # (Auto) 1.5 10^3/uL (0.0-1.0) H 07/21/22 12:22 Eos # (Auto) 0.0 10^3/uL (0.0-0.7) 07/21/22 12:22 Baso # (Auto) 0.0 10^3/uL (0.0-0.1) 07/21/22 12:22 Absolute Nucleated RBC 0.00 x10^3/uL 07/21/22 12:22 Nucleated RBC % 0.0 /100WBC 07/21/22 12:22 PT 10.4 secs (9.9-12.6) 07/21/22 12:44 INR 0.9 (0.8-1.2) 07/21/22 12:44 Sodium 117 mmol/L (135-145) L* 07/21/22 12:22 Potassium 2.8 mmol/L (3.5-5.0) L 07/21/22 12:22 Chloride 79 mmol/L (101-111) L* 07/21/22 12:22 Carbon Dioxide 26 mmol/L (21-32) 07/21/22 12:22 Anion Gap 12.0 (6-13) 07/21/22 12:22 BUN < 5 mg/dL (6-20) L 07/21/22 12:22 Creatinine < 0.3 mg/dL (0.4-1.0) L 07/21/22 12:22 Estimated GFR (MDRD) (>89) 07/21/22 12:22 Glucose 83 mg/dL (70-100) 07/21/22 12:22 Calcium 8.1 mg/dL (8.5-10.3) L 07/21/22 12:22 Phosphorus 1.4 mg/dL (2.5-4.6) L 07/22/22 04:34 Magnesium 1.5 mg/dL (1.7-2.8) L 07/22/22 04:34 Total Bilirubin 0.5 mg/dL (0.2-1.0) 07/21/22 12:22 Direct Bilirubin 0.1 mg/dL (0.1-0.5) 07/21/22 05:13 AST 30 IU/L (10-42) 07/21/22 12:22 ALT 26 IU/L (10-60) 07/21/22 12:22 Alkaline Phosphatase 88 IU/L (42-121) 07/21/22 12:22 Total Protein 6.5 g/dL (6.7-8.2) L 07/21/22 12:22 Albumin 2.9 g/dL (3.2-5.5) L 07/21/22 12:22 Globulin 3.6 g/dL (2.1-4.2) 07/21/22 12:22 Albumin/Globulin Ratio 0.8 (1.0-2.2) L 07/21/22 12:22 TSH 0.48 uIU/mL (0.34-5.60) 07/20/22 12:04 Free T4 1.36 ng/dL (0.58-1.64) 07/20/22 12:04 Nasal Adenovirus (PCR) NOT DETECTED 07/21/22 18:05 Nasal B. parapertussis DNA (PCR) NOT DETECTED 07/21/22 18:05 Nasal Coronavir 229E PCR NOT DETECTED 07/21/22 18:05 Nasal Coronavir HKU1 PCR NOT DETECTED 07/21/22 18:05 Nasal Coronavir NL63 PCR NOT DETECTED 07/21/22 18:05 Nasal Coronavir OC43 PCR NOT DETECTED 07/21/22 18:05 Nasal Enterovir/Rhinovir PCR NOT DETECTED 07/21/22 18:05 Nasal Influenza A H3 PCR DETECTED A 07/21/22 18:05 Nasal Influenza B PCR NOT DETECTED 07/21/22 18:05 Nasal Parainfluen 1 PCR NOT DETECTED 07/21/22 18:05 Nasal Parainfluen 2 PCR NOT DETECTED 07/21/22 18:05 Nasal Parainfluen 3 PCR NOT DETECTED 07/21/22 18:05 Nasal Parainfluen 4 PCR NOT DETECTED 07/21/22 18:05 Nasal RSV (PCR) NOT DETECTED 07/21/22 18:05 Nasal B.pertussis DNA PCR NOT DETECTED 07/21/22 18:05 Nasal C.pneumoniae (PCR) NOT DETECTED 07/21/22 18:05 Jerry Human Metapneumo PCR NOT DETECTED 07/21/22 18:05 Nasal M.pneumoniae (PCR) NOT DETECTED 07/21/22 18:05 Nasal SARS-CoV-2 (PCR) NOT DETECTED 07/21/22 18:05 SARS-CoV-2 (PCR) NOT DETECTED 07/20/22 22:07 - Procedures Procedures: Procedures EXCISION OF DUODENUM, ENDO, DIAGN (04/15/16) EXCISION OF ESOPHAGUS, ENDO, DIAGN (04/15/16) EXCISION OF LARGE INTESTINE, ENDO, DIAGN (04/15/16) EXCISION OF STOMACH, ENDO, DIAGN (04/15/16) REMOVAL OF INT FIX FROM L ULNA, OPEN APPROACH (09/06/19) REPOSITION LEFT ULNA WITH INT FIX, OPEN APPROACH (09/06/19)
[2022-07-22] MEDS ORDERED: LIDOCAINE PATCH 5% TOP PRN (18:43)
[2022-07-22] MEDS: SODIUM CHLORIDE 0.9% 1,000 ML IV SCH (20:05)
[2022-07-22 20:36] LABS: BUN - BLOOD UREA NITROGEN < 5 mg/dL (6-20); CARBON DIOXIDE - CO2 31 mmol/L (21-32); CHLORIDE 85 mmol/L (101-111); CREATININE 0.3 mg/dL (0.4-1.0); GFR - MDRD 226 (>89); GLUCOSE 152 mg/dL (70-100); SODIUM 124 mmol/L (135-145)
[2022-07-22 20:38] LABS: POTASSIUM 2.2 mmol/L (3.5-5.0)
[2022-07-22] MEDS ORDERED: POTASSIUM CHLORIDE 20 MEQ TABLET PO ONE (21:31)
[2022-07-22] MEDS: POTASSIUM CHLOR 10 MEQ/100 ML 10 MEQ/100 ML BAG IV SCH ×2 (22:01→23:26)
[2022-07-23] MEDS: POTASSIUM CHLOR 10 MEQ/100 ML 10 MEQ/100 ML BAG IV SCH ×2 (00:48→02:14)
[2022-07-23] MEDS: SODIUM CHLORIDE FLUSH 0.9% 10 ML SYRINGE IVP SCH ×3 (02:35→22:50)
[2022-07-23 05:00] LABS: BASOPHILS % (AUTO) 0.2 %; EOSINOPHILS % (AUTO) 0.1 %; HCT - HEMATOCRIT 34.4 % (37.0-47.0); HGB - HEMOGLOBIN 11.6 g/dL (12.0-16.0); LYMPHOCYTES % (AUTO) 10.4 %; MEAN CORPUSCULAR HEMOGLOBIN 32.6 pg (27.0-31.0); MEAN CORPUSCULAR HGB CONC 33.7 g/dL (32.0-36.0); MEAN CORPUSCULAR VOLUME 96.6 fL (81.0-99.0); MEAN PLATELET VOLUME 8.4 fL (7.9-10.8); MONOCYTES % (AUTO) 18.8 %; NEUTROPHILS % (AUTO) 69.9 %; PLT - PLATELET COUNT 175 10^3/uL (130-450); RED BLOOD COUNT 3.56 10^6/uL (4.20-5.40); RED CELL DISTRIBUTION WIDTH 13.9 % (12.0-15.0); WHITE BLOOD COUNT 10.6 x10^3/uL (4.8-10.8)
[2022-07-23 05:04] LABS: ABNORMAL LYMPHS % (MANUAL) 0 %; BAND NEUTROPHILS % (MANUAL) 0 %
[2022-07-23 05:14] LABS: BUN - BLOOD UREA NITROGEN < 5 mg/dL (6-20); CALCIUM 7.8 mg/dL (8.5-10.3); CARBON DIOXIDE - CO2 27 mmol/L (21-32); CHLORIDE 91 mmol/L (101-111); GLUCOSE 116 mg/dL (70-100); MAGNESIUM 1.7 mg/dL (1.7-2.8); PHOSPHORUS 3.3 mg/dL (2.5-4.6); POTASSIUM 3.9 mmol/L (3.5-5.0); SODIUM 127 mmol/L (135-145)
[2022-07-23 05:20] LABS: DIFFERENTIAL COMMENT MANUAL DIFFERENTIAL; LYMPHOCYTES # (MANUAL) 1.4 10^3/uL (1.5-3.5); LYMPHOCYTES % (MANUAL) 13 %; MONOCYTES # (MANUAL) 1.5 10^3/uL (0.0-1.0); NEUTROPHILS # (MANUAL) 7.7 10^3/uL (1.5-6.6); PLATELET ESTIMATE, MANUAL NORMAL (130-450,000) (NORMAL); PLATELET MORPHOLOGY NORMAL APPEARANCE (NORMAL); RBC MORPHOLOGY (MULTIPLE) NORMAL APPEARANCE (NORMAL); WBC MORPHOLOGY (MULTIPLE) NORMAL APPEARANCE (NORMAL)
[2022-07-23 05:46] LABS: CREATININE < 0.3 mg/dL (0.4-1.0)
[2022-07-23] MEDS: SODIUM CHLORIDE 0.9% 1,000 ML IV SCH ×4 (08:06→21:22)
[2022-07-23] MEDS: OSELTAMIVIR 75 MG CAPSULE PO SCH ×2 (08:07→21:25)
[2022-07-23] MEDS: MULTIVITAMIN 10 ML, THIAMINE INJ 100 MG, FOLIC ACID INJ 1 MG in SODIUM CHLORIDE 0.9% 1,... IV SCH (10:03)
[2022-07-23] MEDS ORDERED: IPRATROPIUM/ALBUTEROL 3 ML NEB INH PRN (14:22)
[2022-07-23] MEDS: IPRATROPIUM/ALBUTEROL 3 ML NEB INH SCH ×2 (15:08→19:45)
[2022-07-23] MEDS: BUDESONIDE 0.5 MG/2 ML NEB INH SCH (19:45)
--- NOTE | 2022-07-23 20:05 | PROVIDER PROGRESS NOTE ---
Assessment/Plan - Problem List (1) Obtundation Assessment/Plan: At admission she told me she has felt tired and sleepy for about 3 days and her viral syndrome started about 5 days ago. Yesterday she was even more somnolent, did not awaken for meals or while being visited by family members. Her complete Resp PCR was done after admission, not in ED, and she did test pos for Influenza A. Perhaps the flu is causing her this weakness and extreme somnolence. Alternatively, she may be withdrawing from alcohol, as alcohol may give her energy by disinhibiting her. Per her son, she does not take narcotics or sedatives and this is also not likely to be withdrawal from meth, as she is not a meth user or drug user, the son said. The family members visiting yesterday said she had fallen 3 times recently in [address] had been done in ER, thus she had CT from head to ankles yesterday. An old pelvic fracture was seen, many old vertebral compression fractures, a new T12 compression fracture was reported, but no brain or c-spine acute findings. Plan: Will order PT and OT to start>> she refused them today. Continue iv hydration and symptomatic support during her Flu Will assure she is not correcting serum Na too rapidly, follow serum Na q8 h. Continue to treat all the electrolyte abnormalites, which may also cause lethargy. (2) Influenza infection She has had a cough and fatigue and anorexia for 5 days before admission. She was only tested for COVID in the ED at presentation. She had the complete PCR respiratory testing after admission, and it is positive for influenza A Plan: Tamiflu was ordered to start We de-escalated her from a regular diet to clear liquids or pured (3) CAP (Community acquired pneumonia) Conclusion/Plan: She has a wet productive cough. She has wheezing diffusely and loud rhonchi on exam. Her cough is infrequent because she is very somnolent. The admission Chest x-ray showed no infiltrate. She is positive for influenza A. A CT chest was therefore done yesterday, after admission (while she was in the CT scanner for the head, C-spine, pelvis and legs). The CT chest showed a spiculated mass in her RUL, very suspicious for cancer, and also reported were enlarged mediastinal lymph nodes, probably mets. Also seen were "tree-in-bud" changes consistent with infection. Plan: We ordered sputum for culture, if she can bring up sputum. She has been started on oral Tamiflu. Will start empiric antibx, Zithromax and Ceftriaxone Will start Duonebs scheduled QID and prn Will start Montelukast in pm Will start iv steroids and inhaled steroids (4) COPD with exacerbation Conclusion/Plan: As above in #4. Plan: Continue suppl O2 if needed to keep sats >88%. If she need a Nicotine patch for urges, after she is not so somnolent, will order that. (5) Hyponatremia Conclusion/Plan: We suspect this is hypovolemic hyponatremia from poor oral intake for many days recently. She first had a Na of 108, but signed out AMA, returned home, came back 3 hours later after a family member convinced her to return. At the second ER visit and admission to mt, she started with a serum Na of 117, which is up to __ today. Plan: Continue on IV NS. The plan is to continue correction of her serum sodium at no more than 8 mEq per 24 hours, to prevent neurologic problems Follow serum Na every 8-12 hours (6) Hypokalemia Conclusion/Plan: This is also likely related to her poor oral intake but there is also history of chronic diarrhea, that she confirmed to me at admission, she still has, so she could also be losing potassium in diarrhea. Plan: Begin IV K riders. Place on telemetry. Follow BMP every 8-12 hours (7) Alcohol abuse Conclusion/Plan: She did tell me at admission, that she drinks 4 glasses of Zinfindel per day. Th e next day, her family at bedside and son on Facetime, confirmed heavy alcohol use. 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 Perhaps the alcohol gives her "energy" by disinhibiting her. Her LFTs were normal on admision labs. Plan: She has received 2 days of Banana Bag iv, will stop that after today and start oral MOV and oral Thiamine. Continue iv NS and a diet has been ordered. We ordered CIWA protocol, but no scheduled Librium was ordered because she was already so somnolent. Today will stop the prn Ativan, since she is still excessively sleepy. Will check an Ammonia level, given the obtundation. SW consult regarding alcoholism when more alert (8) Freq falls (at home) She could not give me a detailed or prolonged history when I met her, but answered appropriately. Family members told me yesterday that there is a history of 3 falls recently: 1 on 07/19 when she was stepping into a sunken living room in her home and fell backward. Then 2 more falls happened on 07/20, both happened when she was getting out of the nephew's car and she fell backward into the passenger seat, hitting her back of her head on the dashboard. There is a long Hx of falls, which I learned from reading her EMR. These have caused elbow trauma, disruption of elbow hardware, a pelvic fracture and a hip fracture. Due to concern that these recent falls may have caused trauma or intracranial hemorrhage, leading to the new obtundation, STAT CTs were ordered of the head, C-spine, pelvis and lower extremities. The results showed she did not have any acute intracranial abnormality including no brain hemorrhage. C-spine has been cleared. She does have an T12 compression fracture that is acute, and new since April of this year. Other vertebra have old compressions. The legs showed no fractures or dislocations, but osteopenia reported. In April 2022, she had a broken hip and underwent hip surgery and while in rehab, her was also admitted to the same rehab facility, same room, and he there 2 mos ago. 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 Plan: We ordered a lidocaine patch over the vertebral area Will order PT and OT to evaluate and work with her. (9) Lung mass Because of her ashley cough in a smoker, and chest x-ray that showed no infiltrates or mass, she underwent a CT of the chest. This was read as having a spiculated lesion in the right upper lobe and enlarged mediastinal lymph nodes consistent with metastasis. This is very likely from her heavy smoking history. Yesterday I informed the family and also the son on FaceT from [place], all the results of the above and this finding. She was asleep and did not hear this. Plan: The son Jono, her DPOA, has left [place] and will be here tonight 07/23/22. He w ants to help her make decisions and offer support, since she just lost her (and he lost his father) 2 mos ago. (10) Moderate protein calorie malnutrition Conclusion/Plan: Her BMI is 16. The family reported her poor oral intake for an unknown duration. Per our Shredded Filler Machine Wrapper Layer, she has had nutritional intake of less than 50% of recommended for 1 week. She has muscle wasting in the temporal region and loss of subcutaneous fat in the ocular region. Plan: Continue with IV hydration. Nutrition consult was ordered to help her increase calories and protein, when we advance her diet. - Current Meds Current Meds: Current Medications Generic Name Dose Route Start Last Admin Trade Name Freq PRN Reason Stop Dose Admin Albuterol/Ipratropium 3 ml 07/23/22 15:00 07/23/22 15:08 Ipratropium/Albuterol 3 Ml Neb INH 3 ml RTQID ALFREDA Administration Multivitamins 10 ml/ Thiamine 1,011.2 mls @ 100 mls/hr 07/21/22 13:00 07/23/22 10:03 HCl 100 mg/ Folic Acid 1 mg/ IV 07/23/22 23:59 100 mls/hr Sodium Chloride DAILY ALFREDA Administration Sodium Chloride 1,000 mls @ 40 mls/hr 07/23/22 14:17 07/23/22 14:54 Normal Saline 0.9% IV Not Given .Q25H ALFREDA Lidocaine 1 patch 07/22/22 18:43 07/23/22 08:07 Lidocaine Patch 5% TOP 1 patch DAILY PRN Administration PAIN Oseltamivir Phosphate 75 mg 07/21/22 21:00 07/23/22 08:07 Oseltamivir 75 Mg Capsule PO 07/26/22 09:01 75 mg BID ALFREDA Administration Sodium Chloride 10 ml 07/21/22 17:00 07/23/22 08:07 Sodium Chloride Flush 0.9% 10 Ml Syringe IVP Not Given 0100,0900,1700 ALFREDA - Lab Result Fish Bone Diagrams: 07/23/22 04:20 07/23/22 04:20 - Additional Planning My Orders: My Active Orders 07/23/22 Evaluate and Treat OT [OT] Routine Evaluate and Treat PT [PT] Routine 07/23/22 14:17 Sodium Chloride 0.9% [Normal Saline 0.9%] 1,000 ml IV 40 mls/hr 07/23/22 14:22 Nebulizer/MDI Tx. [RC] QID Resp Teach Nebulizer/MDI [RC] .ONCE Ipratropium/Albuterol [Duoneb] 3 ml INH Q4HR PRN 07/23/22 14:23 Nebulizer/MDI Tx. [RC] QID Resp Teach Nebulizer/MDI [RC] .ONCE 07/23/22 15:00 Ipratropium/Albuterol [Duoneb] 3 ml INH RTQID 07/23/22 19:00 Budesonide [Pulmicort] 0.5 mg INH RTBID 07/23/22 21:00 guaiFENesin [Mucinex] 600 mg PO BID 07/23/22 22:00 methylPREDNISolone SUCCINATE [SOLU-Medrol (40MG VIAL)] 40 mg IVP TID 07/24/22 05:00 BMP - BASIC METABOLIC PANEL [CHEM] DAILYLAB MAGNESIUM [CHEM] DAILYLAB PHOSPHORUS [CHEM] DAILYLAB 07/25/22 05:00 BMP - BASIC METABOLIC PANEL [CHEM] DAILYLAB MAGNESIUM [CHEM] DAILYLAB PHOSPHORUS [CHEM] DAILYLAB 07/26/22 05:00 BMP - BASIC METABOLIC PANEL [CHEM] DAILYLAB Subjective - Subjective Patient Reports: Other (She is slightly easier to awaken, speaks normally, then falls back asleep. Has a wet productive cough.) Nursing Reports: Other (Refused to work with PT and OT today or to get OOB due to fatigue and said she would tomorrow.) Objective Vital Signs: Vital Signs - 24 hr 07/22/22 07/23/22 07/23/22 20:12 00:33 04:49 Temperature 36.3 C L 37.1 C 36.8 C Heart Rate Heart Rate [ 76 90 80 Brachial] Respiratory 20 24 18 Rate Blood Pressure 158/73 H 169/86 H 167/92 H [Right Brachial artery] O2 Saturation 94 96 97 If not protocol 3 3 3 : Oxygen Flow, liters/minute 07/23/22 07/23/22 07/23/22 08:21 09:46 12:32 Temperature 37.6 C 36.4 C L Heart Rate Heart Rate [ 80 82 Brachial] Respiratory 20 20 Rate Blood Pressure 172/74 H 146/78 H [Right Brachial artery] O2 Saturation 98 97 If not protocol 3 3 2 : Oxygen Flow, liters/minute 07/23/22 07/23/22 15:10 15:59 Temperature 36.9 C Heart Rate 79 Heart Rate [ 78 Brachial] Respiratory 20 20 Rate Blood Pressure 158/63 H [Right Brachial artery] O2 Saturation 94 If not protocol 2 3 : Oxygen Flow, liters/minute Oxygen O2 Source Nasal cannula Oxygen Flow Rate 2 I&O (Last 24 Hrs): Intake and Output Totals x24h 07/21/22 07/22/22 07/23/22 23:59 23:59 23:59 Intake Total 3745.534 2790.387 1857 Output Total 1200 2500 1700 Balance 2545.534 290.387 157 General: Other (Lethargic, awakens to name, speaks normally, falls asleep after 1 sentence. Cachectic.) HEENT: Other (Dry oral mucosa) Neuro: Other (Lethargic, non-focal) Cardiovascular: Regular rate, No murmurs Respiratory: Wheezes, Rhonchi, Other (Is mouth breathing when asleep) Abdomen: Normal bowel sounds, Soft, No tenderness Extremities: No clubbing, No edema - Results Results: Laboratory Results WBC 10.6 x10^3/uL (4.8-10.8) 07/23/22 04:20 RBC 3.56 10^6/uL (4.20-5.40) L 07/23/22 04:20 Hgb 11.6 g/dL (12.0-16.0) L 07/23/22 04:20 Hct 34.4 % (37.0-47.0) L 07/23/22 04:20 MCV 96.6 fL (81.0-99.0) 07/23/22 04:20 MCH 32.6 pg (27.0-31.0) H 07/23/22 04:20 MCHC 33.7 g/dL (32.0-36.0) 07/23/22 04:20 RDW 13.9 % (12.0-15.0) 07/23/22 04:20 Plt Count 175 10^3/uL (130-450) 07/23/22 04:20 MPV 8.4 fL (7.9-10.8) 07/23/22 04:20 Neut # (Auto) Not Reportable 07/23/22 04:20 Lymph # (Auto) Not Reportable 07/23/22 04:20 [place] # (Auto) Not Reportable 07/23/22 04:20 Eos # (Auto) Not Reportable 07/23/22 04:20 Baso # (Auto) Not Reportable 07/23/22 04:20 Absolute Nucleated RBC Not Reportable 07/23/22 04:20 Total Counted 100 07/23/22 04:20 Band Neuts % (Manual) 0 % (0-10) 07/23/22 04:20 Abnorm Lymph % (Manual) 0 % 07/23/22 04:20 Nucleated RBC % Not Reportable 07/23/22 04:20 Neutrophils # (Manual) 7.7 10^3/uL (1.5-6.6) H 07/23/22 04:20 Lymphocytes # (Manual) 1.4 10^3/uL (1.5-3.5) L 07/23/22 04:20 Monocytes # (Manual) 1.5 10^3/uL (0.0-1.0) H 07/23/22 04:20 Eosinophils # (Manual) 0.0 10^3/uL (0-0.7) 07/23/22 04:20 Basophils # (Manual) 0.0 10^3/uL (0-0.1) 07/23/22 04:20 Differential Comment MANUAL DIFFERENTIAL 07/23/22 04:20 WBC Morphology NORMAL APPEARANCE (NORMAL) 07/23/22 04:20 Platelet Estimate NORMAL (130-450,000) (NORMAL) 07/23/22 04:20 Platelet Morphology NORMAL APPEARANCE (NORMAL) 07/23/22 04:20 RBC Morph Micro Appear NORMAL APPEARANCE (NORMAL) 07/23/22 04:20 PT 10.4 secs (9.9-12.6) 07/21/22 12:44 INR 0.9 (0.8-1.2) 07/21/22 12:44 Sodium 127 mmol/L (135-145) L 07/23/22 04:20 Potassium 3.9 mmol/L (3.5-5.0) 07/23/22 04:20 Chloride 91 mmol/L (101-111) L 07/23/22 04:20 Carbon Dioxide 27 mmol/L (21-32) 07/23/22 04:20 Anion Gap 9.0 (6-13) 07/23/22 04:20 BUN < 5 mg/dL (6-20) L 07/23/22 04:20 Creatinine < 0.3 mg/dL (0.4-1.0) L 07/23/22 04:20 Estimated GFR (MDRD) (>89) 07/23/22 04:20 Glucose 116 mg/dL (70-100) H 07/23/22 04:20 Calcium 7.8 mg/dL (8.5-10.3) L 07/23/22 04:20 Phosphorus 3.3 mg/dL (2.5-4.6) 07/23/22 04:20 Magnesium 1.7 mg/dL (1.7-2.8) 07/23/22 04:20 Total Bilirubin 0.5 mg/dL (0.2-1.0) 07/21/22 12:22 Direct Bilirubin 0.1 mg/dL (0.1-0.5) 07/21/22 05:13 AST 30 IU/L (10-42) 07/21/22 12:22 ALT 26 IU/L (10-60) 07/21/22 12:22 Alkaline Phosphatase 88 IU/L (42-121) 07/21/22 12:22 Total Protein 6.5 g/dL (6.7-8.2) L 07/21/22 12:22 Albumin 2.9 g/dL (3.2-5.5) L 07/21/22 12:22 Globulin 3.6 g/dL (2.1-4.2) 07/21/22 12:22 Albumin/Globulin Ratio 0.8 (1.0-2.2) L 07/21/22 12:22 TSH 0.48 uIU/mL (0.34-5.60) 07/20/22 12:04 Free T4 1.36 ng/dL (0.58-1.64) 07/20/22 12:04 Nasal Adenovirus (PCR) NOT DETECTED 07/21/22 18:05 Nasal B. parapertussis DNA (PCR) NOT DETECTED 07/21/22 18:05 Nasal Coronavir 229E PCR NOT DETECTED 07/21/22 18:05 Nasal Coronavir HKU1 PCR NOT DETECTED 07/21/22 18:05 Nasal Coronavir NL63 PCR NOT DETECTED 07/21/22 18:05 Nasal Coronavir OC43 PCR NOT DETECTED 07/21/22 18:05 Nasal Enterovir/Rhinovir PCR NOT DETECTED 07/21/22 18:05 Nasal Influenza A H3 PCR DETECTED A 07/21/22 18:05 Nasal Influenza B PCR NOT DETECTED 07/21/22 18:05 Nasal Parainfluen 1 PCR NOT DETECTED 07/21/22 18:05 Nasal Parainfluen 2 PCR NOT DETECTED 07/21/22 18:05 Nasal Parainfluen 3 PCR NOT DETECTED 07/21/22 18:05 Nasal Parainfluen 4 PCR NOT DETECTED 07/21/22 18:05 Nasal RSV (PCR) NOT DETECTED 07/21/22 18:05 Nasal B.pertussis DNA PCR NOT DETECTED 07/21/22 18:05 Nasal C.pneumoniae (PCR) NOT DETECTED 07/21/22 18:05 Jerry Human Metapneumo PCR NOT DETECTED 07/21/22 18:05 Nasal M.pneumoniae (PCR) NOT DETECTED 07/21/22 18:05 Nasal SARS-CoV-2 (PCR) NOT DETECTED 07/21/22 18:05 SARS-CoV-2 (PCR) NOT DETECTED 07/20/22 22:07 - Procedures Procedures: Procedures EXCISION OF DUODENUM, ENDO, DIAGN (04/15/16) EXCISION OF ESOPHAGUS, ENDO, DIAGN (04/15/16) EXCISION OF LARGE INTESTINE, ENDO, DIAGN (04/15/16) EXCISION OF STOMACH, ENDO, DIAGN (04/15/16) REMOVAL OF INT FIX FROM L ULNA, OPEN APPROACH (09/06/19) REPOSITION LEFT ULNA WITH INT FIX, OPEN APPROACH (09/06/19)
[2022-07-23] MEDS: guaiFENesin 600 MG TABLET PO SCH (21:25)
[2022-07-23] MEDS: methylPREDNISolone SUCCINATE 40 MG/ML VIAL IVP SCH (21:26)
[2022-07-24] MEDS: SODIUM CHLORIDE FLUSH 0.9% 10 ML SYRINGE IVP SCH ×3 (00:40→17:52)
[2022-07-24] MEDS: methylPREDNISolone SUCCINATE 40 MG/ML VIAL IVP SCH ×3 (05:41→21:38)
[2022-07-24 05:48] LABS: BUN - BLOOD UREA NITROGEN < 5 mg/dL (6-20); CALCIUM 8.6 mg/dL (8.5-10.3); CARBON DIOXIDE - CO2 31 mmol/L (21-32); CHLORIDE 88 mmol/L (101-111); CREATININE 0.3 mg/dL (0.4-1.0); GFR - MDRD 226 (>89); GLUCOSE 143 mg/dL (70-100); MAGNESIUM 1.4 mg/dL (1.7-2.8); PHOSPHORUS 3.2 mg/dL (2.5-4.6); POTASSIUM 2.8 mmol/L (3.5-5.0); SODIUM 130 mmol/L (135-145)
[2022-07-24] MEDS: ACETAMINOPHEN 325 MG TABLET PO PRN (05:49)
[2022-07-24] MEDS: BUDESONIDE 0.5 MG/2 ML NEB INH SCH ×2 (08:04→20:06)
[2022-07-24] MEDS: IPRATROPIUM/ALBUTEROL 3 ML NEB INH SCH ×4 (08:04→20:06)
[2022-07-24] MEDS: OSELTAMIVIR 75 MG CAPSULE PO SCH ×2 (09:19→21:38)
[2022-07-24] MEDS: guaiFENesin 600 MG TABLET PO SCH ×2 (09:19→21:38)
[2022-07-24] MEDS: cefTRIAXone 1 GM in SODIUM CHLORIDE 0.9% MINIBAG 100 ML IV SCH (10:51)
[2022-07-24 10:56] LABS: ALBUMIN 2.6 g/dL (3.2-5.5); BILIRUBIN,DIRECT 0.1 mg/dL (0.1-0.5); BILIRUBIN,TOTAL 0.2 mg/dL (0.2-1.0); TOTAL PROTEIN 6.1 g/dL (6.7-8.2)
[2022-07-24] MEDS: LACTULOSE 10 GM /15 ML UDC PO SCH (11:45)
[2022-07-24] MEDS: AZITHROMYCIN INJ 500 MG in SODIUM CHLORIDE 0.9% 250 ML IV SCH (11:49)
[2022-07-24] MEDS: PRENATAL VITAMIN TABLET PO SCH (11:55)
[2022-07-24] MEDS: THIAMINE 100 MG TABLET PO SCH (11:55)
--- NOTE | 2022-07-24 16:54 | PROVIDER PROGRESS NOTE ---
Assessment/Plan - Problem List (1) CAP (community acquired pneumonia) Assessment/Plan: She has a wet productive cough. She has wheezing diffusely and loud rhonchi on exam. Her cough is infrequent because she is very somnolent. The admission Chest x-ray showed no infiltrate. She is positive for influenza A. A CT chest was therefore done, after admission (while she was in the CT scanner for the head, C-spine, pelvis and legs). The CT chest showed a spiculated mass in her RUL, very suspicious for cancer, and also reported were enlarged mediastinal lymph nodes, probably mets. Also seen were "tree-in-bud" changes consistent with infection. Plan: We ordered sputum for culture, if she can bring up sputum. She has been started on oral Tamiflu. Will start empiric antibx, Zithromax and Ceftriaxone Will start Duonebs scheduled QID and prn Will start Montelukast in pm Will start iv steroids and inhaled steroids (2) Influenza infection She has had a cough and fatigue and anorexia for 5 days before admission. She was only tested for COVID in the ED at presentation. She had the complete PCR respiratory testing after admission, and it is positive for influenza A Plan: Tamiflu was ordered to start We de-escalated her from a regular diet to clear liquids or pured (3) COPD with exacerbation Conclusion/Plan: As above in #1 & 2. Plan: Continue suppl O2 if needed to keep sats >88%. If she need a Nicotine patch for urges, after she is not so somnolent, will order that. (4) Hyponatremia Conclusion/Plan: We suspect this is hypovolemic hyponatremia from poor oral intake for many days recently. She first had a Na of 108, but signed out AMA, returned home, came back 3 hours later after a family member convinced her to return. At the second ER visit and admission to [facility], she started with a serum Na of 117, which has increased 127>> Plan: Continue on IV NS. The plan is to continue correction of her serum sodium at no more than 8 mEq per 24 hours, to prevent neurologic problems Follow serum Na every 8-12 hours (5) Hypokalemia Conclusion/Plan: This is also likely related to her poor oral intake but there is also history of chronic diarrhea, that she confirmed to [facility] at admission, she still has, so she could also be losing potassium in diarrhea. Plan: Begin IV K riders. Place on telemetry. Follow BMP every 8-12 hours (6) Obtundation Assessment/Plan: Improved slightly At admission she told me she has felt tired and sleepy for about 3 days and her viral syndrome started about 5 days ago. Yesterday she was even more somnolent, did not awaken for meals or while being visited by family members. Her complete Resp PCR was done after admission, not in ED, and she did test pos for Influenza A. Perhaps the flu is causing her this weakness and extreme somnolence. Alternatively, she may be withdrawing from alcohol, as alcohol may give her energy by disinhibiting her. Per her son, she does not take narcotics or sedatives and this is also not likely to be withdrawal from meth, as she is not a meth user or drug user, the son said. The family members visiting yesterday said she had fallen 3 times recently in [address] had been done in ER, thus she had CT from head to ankles yesterday. An old pelvic fracture was seen, many old vertebral compression fractures, a new L5 compression fracture was reported, but no brain or c-spine acute findings. Plan: Will order PT and OT to start>> she refused them today. Continue iv hydration and symptomatic support during her Flu Will assure she is not correcting serum Na too rapidly, follow serum Na q8 h. Continue to treat all the electrolyte abnormalites, which may also cause lethargy. (7) Alcohol abuse Conclusion/Plan: She did tell me at admission, that she drinks 4 glasses of Zinfindel per day. The next day, her family at bedside and son on Facetime, confirmed heavy alcohol use. 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 Perhaps the alcohol gives her "energy" by disinhibiting her. Her LFTs were normal on admision labs. Plan: She has received 2 days of Banana Bag iv, will stop that after today and start oral MOV and oral Thiamine. Continue iv NS and a diet has been ordered. We ordered CIWA protocol, but no scheduled Librium was ordered because she was already so somnolent. Today will stop the prn Ativan, since she is still excessively sleepy. Will check an Ammonia level, given the obtundation. SW consult regarding alcoholism when more alert (8) Jamesq falls (at home) She could not give me a detailed or prolonged history when I met her, but answered appropriately. Family members told me yesterday that there is a history of 3 falls recently: 1 on 07/19 when she was stepping into a sunken living room in her home and fell backward. Then 2 more falls happened on 07/20, both happened when she was getting out of the nephew's car and she fell backward into the passenger seat, hitting her back of her head on the dashboard. There is a long Hx of falls, which I learned from reading her EMR. These have caused elbow trauma, disruption of elbow hardware, a pelvic fracture and a hip fracture. Due to concern that these recent falls may have caused trauma or intracranial hemorrhage, leading to the new obtundation, STAT CTs were ordered of the head, C-spine, pelvis and lower extremities. The results showed she did not have any acute intracranial abnormality including no brain hemorrhage. C-spine has been cleared. She does have a new L5 compression fracture that is acute, and new since April of this year. Other vertebra have old compressions. The legs showed no fractures or dislocations, but osteopenia reported. In April 2022, she had a broken hip and underwent hip surgery and while in rehab, her was also admitted to the same rehab facility, same room, and he there 2 mos ago. 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 Plan: We ordered a lidocaine patch over the vertebral area Will order PT and OT to evaluate and work with her. (9) Lung mass Because of her ashley cough in a smoker, and chest x-ray that showed no infiltrates or mass, she underwent a CT of the chest. This was read as having a spiculated lesion in the right upper lobe and enlarged mediastinal lymph nodes consistent with metastasis. This is very likely from her heavy smoking history. Yesterday I informed the family and also the son on FaceTime from [place], all the results of the above and this finding. She was asleep and did not hear this. Plan: The son Jono, her DPOA, [facility] [place] [facility] He wants to help her make decisions and offer support, since she just lost her (and he lost his father) 2 mos ago. (10) Moderate protein calorie malnutrition Conclusion/Plan: Her BMI is 16. The family reported her poor oral intake for an unknown duration. Per our [employer], she has had nutritional intake of less than 50% of recommended for 1 week. She has muscle wasting in the temporal region and loss of subcutaneous fat in the ocular region. Plan: Continue with IV hydration. Nutrition consult was ordered to help her increase calories and protein, when we advance her diet. - Current Meds Current Meds: Current Medications Generic Name Dose Route Start Last Admin Trade Name Nevaeh PRN Reason Stop Dose Admin Acetaminophen 650 mg 07/21/22 12:03 07/24/22 05:49 Acetaminophen 325 Mg Tablet PO 650 mg Q4HR PRN Administration Pain 1 to 4, or Fever Albuterol/Ipratropium 3 ml 07/23/22 15:00 07/24/22 13:09 Ipratropium/Albuterol 3 Ml Neb INH 3 ml RTQID ALFREDA Administration Budesonide 0.5 mg 07/23/22 19:00 07/24/22 08:04 Budesonide 0.5 Mg/2 Ml Neb INH 0.5 mg RTBID ALFREDA Administration Guaifenesin 600 mg 07/23/22 21:00 07/24/22 09:19 Guaifenesin 600 Mg Tablet PO 600 mg BID ALFREDA Administration Sodium Chloride 1,000 mls @ 40 mls/hr 07/23/22 14:17 07/24/22 12:50 Normal Saline 0.9% IV 40 mls/hr .Q25H ALFREDA Infusion Ceftriaxone Sodium 1 gm/ 100 mls @ 200 mls/hr 07/24/22 11:00 07/24/22 11:25 Sodium Chloride IV Infused DAILY ALFREDA Infusion Azithromycin 500 mg/ Sodium 250 mls @ 250 mls/hr 07/24/22 12:00 07/24/22 12:50 Chloride IV 07/26/22 09:59 Infused DAILY ALFREDA Infusion Lactulose 10 gm 07/24/22 12:00 07/24/22 11:45 Lactulose 10 Gm /15 Ml Udc PO 10 gm DAILY ALFREDA Administration Lidocaine 1 patch 07/22/22 18:43 07/23/22 08:07 Lidocaine Patch 5% TOP 1 patch DAILY PRN Administration PAIN Methylprednisolone 40 mg 07/23/22 22:00 07/24/22 13:59 Methylprednisolone Succinate 40 Mg/Ml Vial IVP 40 mg TID ALFREDA Administration Oseltamivir Phosphate 75 mg 07/21/22 21:00 07/24/22 09:19 Oseltamivir 75 Mg Capsule PO 07/26/22 09:01 75 mg BID ALFREDA Administration Multivit/Folic Acid/Iron 1 tab 07/24/22 12:00 07/24/22 11:55 Vitamin Tablet PO 1 tab DAILYWM ALFREDA Administration Sodium Chloride 10 ml 07/21/22 12:03 07/24/22 05:42 Sodium Chloride Flush 0.9% 10 Ml Syringe IVP 10 ml PRN PRN Administration NEEDED PER PROVIDER ORDERS Sodium Chloride 10 ml 07/21/22 17:00 07/24/22 09:19 Sodium Chloride Flush 0.9% 10 Ml Syringe IVP Not Given 0100,0900,1700 ALFREDA Thiamine HCl 100 mg 07/24/22 12:00 07/24/22 11:55 Thiamine 100 Mg Tablet PO 100 mg DAILY ALFREDA Administration - Lab Result Fish Bone Diagrams: 07/26/22 05:05 07/26/22 05:05 - Additional Planning My Orders: My Active Orders 07/23/22 19:00 Budesonide [Pulmicort] 0.5 mg INH RTBID 07/23/22 21:00 guaiFENesin [Mucinex] 600 mg PO BID 07/23/22 22:00 methylPREDNISolone SUCCINATE [SOLU-Medrol (40MG VIAL)] 40 mg IVP TID 07/24/22 11:00 cefTRIAXone [Rocephin] 1 gm Sodium Chloride 0.9% Minibag [Normal Saline 0.9% Minibag] 100 ml IV DAILY 07/24/22 12:00 Azithromycin Inj [Zithromax Inj] 500 mg Sodium Chloride 0.9% [Normal Saline 0.9%] 250 ml IV DAILY Lactulose [Enulose] 10 gm PO DAILY Vitamin [Trinatal Rx 1] 1 tab PO DAILYWM Thiamine [Vitamin B-1] 100 mg PO DAILY 07/24/22 Dinner DIET [Regular Diet] [DIET] 07/24/22 17:00 Potassium Chlor 10 Meq/100 ml [Potassium Chloride] 10 meq in 100 ml IV Q1H 07/25/22 05:00 AMMONIA [CHEM] DAILYLAB CMP [COMPREHENSIVE METABOLIC PANEL] [CHEM] DAILYLAB MAGNESIUM [CHEM] DAILYLAB PHOSPHORUS [CHEM] DAILYLAB 07/26/22 05:00 AMMONIA [CHEM] DAILYLAB CMP [COMPREHENSIVE METABOLIC PANEL] [CHEM] DAILYLAB 07/27/22 05:00 AMMONIA [CHEM] DAILYLAB CMP [COMPREHENSIVE METABOLIC PANEL] [CHEM] DAILYLAB 07/28/22 05:00 AMMONIA [CHEM] DAILYLAB CMP [COMPREHENSIVE METABOLIC PANEL] [CHEM] DAILYLAB Subjective - Subjective Patient Reports: Feeling Better (She awoke briefly, said she is hungry and asking for a grilled cheese sandwich, has tolerated clear liquids and is awake more throughout the day. She is withdrawn, turns away and rolls her eyes when anyone brings up the topic of alcohol.), Cough (Has a wet cough, cannot expectorate the sputum) Nursing Reports: Other (She is more awake, is conversant, but still reports being very tired, goes to sleep easily. The son arrived last night from [place], is at her bedside) Objective Vital Signs: Vital Signs - 24 hr 07/23/22 07/23/22 07/23/22 19:45 19:55 20:06 Temperature 36.8 C Heart Rate 80 94 Heart Rate [ 81 Brachial] Respiratory 28 H 20 24 Rate Blood Pressure 149/69 H [Right Brachial artery] O2 Saturation 94 If not protocol 0 1 3 : Oxygen Flow, liters/minute 07/24/22 07/24/22 07/24/22 01:00 05:00 08:05 Temperature 36.4 C L 36.5 C Heart Rate 90 Heart Rate [ 80 76 Brachial] Respiratory 16 16 22 Rate Blood Pressure 151/79 H 157/70 H [Right Brachial artery] O2 Saturation 97 94 If not protocol 3 3 3 : Oxygen Flow, liters/minute 07/24/22 07/24/22 07/24/22 08:20 08:41 13:00 Temperature 36.9 C 36.5 C Heart Rate Heart Rate [ 81 89 Brachial] Respiratory 18 20 Rate Blood Pressure 153/73 H 147/71 H [Right Brachial artery] O2 Saturation 95 95 If not protocol 3 3 3 : Oxygen Flow, liters/minute 07/24/22 07/24/22 13:10 16:04 Temperature 36.4 C L Heart Rate 80 Heart Rate [ 84 Brachial] Respiratory 20 18 Rate Blood Pressure 134/67 H [Right Brachial artery] O2 Saturation 95 If not protocol 4 3 : Oxygen Flow, liters/minute Oxygen O2 Source Nasal cannula Oxygen Flow Rate 2 I&O (Last 24 Hrs): Intake and Output Totals x24h 07/22/22 07/23/22 07/24/22 23:59 23:59 23:59 Intake Total 2790.387 3068.2 2596.000 Output Total 2500 1950 1150 Balance 536.726 5199.2 1446.000 General: Alert, Oriented x3, Other (Cachectic (BMI 15)) HEENT: Other (Dry mucosa, poor dentition) Neck: Supple, No JVD Neuro: Alert, Non Focal, Other (Lethargic but easily arousable, remains awake longer than the last 2 days) Cardiovascular: Regular rate, No murmurs Respiratory: Wheezes (minimal, scattered), Rhonchi Abdomen: Normal bowel sounds, Soft, No tenderness Extremities: No clubbing, No edema, Other (Muscle wasting) - Results Results: Laboratory Results WBC 10.6 x10^3/uL (4.8-10.8) 07/23/22 04:20 RBC 3.56 10^6/uL (4.20-5.40) L 07/23/22 04:20 Hgb 11.6 g/dL (12.0-16.0) L 07/23/22 04:20 Hct 34.4 % (37.0-47.0) L 07/23/22 04:20 MCV 96.6 fL (81.0-99.0) 07/23/22 04:20 MCH 32.6 pg (27.0-31.0) H 07/23/22 04:20 MCHC 33.7 g/dL (32.0-36.0) 07/23/22 04:20 RDW 13.9 % (12.0-15.0) 07/23/22 04:20 Plt Count 175 10^3/uL (130-450) 07/23/22 04:20 MPV 8.4 fL (7.9-10.8) 07/23/22 04:20 Neut # (Auto) Not Reportable 07/23/22 04:20 Lymph # (Auto) Not Reportable 07/23/22 04:20 [place] # (Auto) Not Reportable 07/23/22 04:20 Eos # (Auto) Not Reportable 07/23/22 04:20 Baso # (Auto) Not Reportable 07/23/22 04:20 Absolute Nucleated RBC Not Reportable 07/23/22 04:20 Total Counted 100 07/23/22 04:20 Band Neuts % (Manual) 0 % (0-10) 07/23/22 04:20 Abnorm Lymph % (Manual) 0 % 07/23/22 04:20 Nucleated RBC % Not Reportable 07/23/22 04:20 Neutrophils # (Manual) 7.7 10^3/uL (1.5-6.6) H 07/23/22 04:20 Lymphocytes # (Manual) 1.4 10^3/uL (1.5-3.5) L 07/23/22 04:20 Monocytes # (Manual) 1.5 10^3/uL (0.0-1.0) H 07/23/22 04:20 Eosinophils # (Manual) 0.0 10^3/uL (0-0.7) 07/23/22 04:20 Basophils # (Manual) 0.0 10^3/uL (0-0.1) 07/23/22 04:20 Differential Comment MANUAL DIFFERENTIAL 07/23/22 04:20 WBC Morphology NORMAL APPEARANCE (NORMAL) 07/23/22 04:20 Platelet Estimate NORMAL (130-450,000) (NORMAL) 07/23/22 04:20 Platelet Morphology NORMAL APPEARANCE (NORMAL) 07/23/22 04:20 RBC Morph Micro Appear NORMAL APPEARANCE (NORMAL) 07/23/22 04:20 PT 10.4 secs (9.9-12.6) 07/21/22 12:44 INR 0.9 (0.8-1.2) 07/21/22 12:44 Sodium 130 mmol/L (135-145) L 07/24/22 05:00 Potassium 2.8 mmol/L (3.5-5.0) L 07/24/22 05:00 Chloride 88 mmol/L (101-111) L 07/24/22 05:00 Carbon Dioxide 31 mmol/L (21-32) 07/24/22 05:00 Anion Gap 11.0 (6-13) 07/24/22 05:00 BUN < 5 mg/dL (6-20) L 07/24/22 05:00 Creatinine 0.3 mg/dL (0.4-1.0) L 07/24/22 05:00 Estimated GFR (MDRD) 226 (>89) 07/24/22 05:00 Glucose 143 mg/dL (70-100) H 07/24/22 05:00 Calcium 8.6 mg/dL (8.5-10.3) 07/24/22 05:00 Phosphorus 3.2 mg/dL (2.5-4.6) 07/24/22 05:00 Magnesium 1.4 mg/dL (1.7-2.8) L 07/24/22 05:00 Total Bilirubin 0.2 mg/dL (0.2-1.0) 07/24/22 05:00 Direct Bilirubin 0.1 mg/dL (0.1-0.5) 07/24/22 05:00 AST 16 IU/L (10-42) 07/24/22 05:00 ALT 19 IU/L (10-60) 07/24/22 05:00 Alkaline Phosphatase 76 IU/L (42-121) 07/24/22 05:00 Ammonia 69.4 umol/L (7-35) H 07/24/22 05:00 Total Protein 6.1 g/dL (6.7-8.2) L 07/24/22 05:00 Albumin 2.6 g/dL (3.2-5.5) L 07/24/22 05:00 Globulin 3.5 g/dL (2.1-4.2) 07/24/22 05:00 Albumin/Globulin Ratio 0.8 (1.0-2.2) L 07/21/22 12:22 TSH 0.48 uIU/mL (0.34-5.60) 07/20/22 12:04 Free T4 1.36 ng/dL (0.58-1.64) 07/20/22 12:04 Nasal Adenovirus (PCR) NOT DETECTED 07/21/22 18:05 Nasal B. parapertussis DNA (PCR) NOT DETECTED 07/21/22 18:05 Nasal Coronavir 229E PCR NOT DETECTED 07/21/22 18:05 Nasal Coronavir HKU1 PCR NOT DETECTED 07/21/22 18:05 Nasal Coronavir NL63 PCR NOT DETECTED 07/21/22 18:05 Nasal Coronavir OC43 PCR NOT DETECTED 07/21/22 18:05 Nasal Enterovir/Rhinovir PCR NOT DETECTED 07/21/22 18:05 Nasal Influenza A H3 PCR DETECTED A 07/21/22 18:05 Nasal Influenza B PCR NOT DETECTED 07/21/22 18:05 Nasal Parainfluen 1 PCR NOT DETECTED 07/21/22 18:05 Nasal Parainfluen 2 PCR NOT DETECTED 07/21/22 18:05 Nasal Parainfluen 3 PCR NOT DETECTED 07/21/22 18:05 Nasal Parainfluen 4 PCR NOT DETECTED 07/21/22 18:05 Nasal RSV (PCR) NOT DETECTED 07/21/22 18:05 Nasal B.pertussis DNA PCR NOT DETECTED 07/21/22 18:05 Nasal C.pneumoniae (PCR) NOT DETECTED 07/21/22 18:05 Jerry Human Metapneumo PCR NOT DETECTED 07/21/22 18:05 Nasal M.pneumoniae (PCR) NOT DETECTED 07/21/22 18:05 Nasal SARS-CoV-2 (PCR) NOT DETECTED 07/21/22 18:05 SARS-CoV-2 (PCR) NOT DETECTED 07/20/22 22:07 - Procedures Procedures: Procedures EXCISION OF DUODENUM, ENDO, DIAGN (04/15/16) EXCISION OF ESOPHAGUS, ENDO, DIAGN (04/15/16) EXCISION OF LARGE INTESTINE, ENDO, DIAGN (04/15/16) EXCISION OF STOMACH, ENDO, DIAGN (04/15/16) REMOVAL OF INT FIX FROM L ULNA, OPEN APPROACH (09/06/19) REPOSITION LEFT ULNA WITH INT FIX, OPEN APPROACH (09/06/19)
--- NOTE | 2022-07-24 16:55 | ADVANCE CARE PLANNING NOTE ---
Advance Care Planning - Planning Encounter Date: 07/24/22 Time: 15:30 Purpose: To update the family on the current diagnoses To determine from her DPOA son Jono, his wishes for proceeding with care To establish her CODE STATUS. Parties in Attendance: I spoke to the son Jono who is a DPOA and also in the room was the patient's brother from [facility]. Decisional Capacity of the Patient: The patient is currently obtunded, she cannot make any medical decisions for herself currently. - Diagnosis for Encounter (1) Lung mass Summary: This patient is a lifelong smoker of up to 1-1/2 packs/day. She is here with COPD exacerbation and pneumonia and a chest x-ray showed no infiltrate. She underwent a CT chest and this was read as having [id number] infection/inflammation but also reported was a spiculated mass consistent with lung cancer and mediastinal lymph node enlargement suggesting metastasis. For the reason of a new cancer diagnosis, the family wants this meeting. - Encounter Subjective/Patient's Story: The son Jono tells me that she and her recently were smokers and alcoholics all their life. This patient has had "10 severe complications from drinking alcohol" but he does not tell me what those were. The patient has frequent falls including an elbow fracture from a fall then she fell on the surgical repaired elbow and dislocated things and needed it redone. She recently had a fall that resulted in a pelvic fracture and hip fracture for which she needed a hip replacement. When she was in rehab after the recent hip fracture 3 months ago, her was sick and needed rehab and also had cancer and was given a short time to live. The was transferred into the same room that she was in for her hip rehab. The right next to her in the rehab facility, 2 months ago. 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 The son reports that lately she has been apathetic, gets to the job and only does 1 item and then leaves for home. She also 3 falls in the 2 days preceding this admission. When she stopped eating and was more sleepy the last 3 days, the son (who normally lives and works in [place]), called ahead to this ER and the patient was brought in by her nephew and she was evaluated and found to have low sodium however she signed out AMA before she came back 3 hours later and has now been admitted. She has been asleep for the entire time she is here, she wakes up and coughs with a deep wet cough, answers some questions but cannot remember any recent events. Objective/Medical Story: Patient was admitted to the hospital because of hyponatremia, is on sodium. She has been obtunded since being admitted, only awakens enough to say a word or 2 and then immediately falls asleep. She has not awoken to take in any significant nourishment. She is cachectic. The work-up for her hypersomnolence and obtundation included CT scan from head to toe because she had recent falls. There was no head trauma or C-spine findings, a L5 vertebral compression fract ure was newly found as well as a spiculated mass in the lungs and tree-in-bud inflammation pneumonia. The patient has a history of alcohol abuse she has normal LFTs but a history of frequent falls that are suspected to be due to her alcohol abuse and possibly from intoxication. Goals of Care: The son says that he is DPOA, Showed me the paperwork. He also read me her ad chen directive. She is a DNR/DNI. The son would like to get to the bottom of why she is so sleepy. The son would like to have her evaluated and fully treated for the lung cancer if this is an option. We do not know the type or staging to be able to give him a prognosis currently, I said. He thinks that possibly she may not care about being treated and may choose to have comfort care in order to pass away soon, since she is still quite sad over the recent loss of her 2 months ago. The son confirms that she should not be living alone, given the frequent falls, alcohol abuse and anorexia. He tells me that he recently ordered an agency to visit her several times a week and to also bring her meals and that she fired those people because "she was mad at him". Plan: We will continue to evaluate and treat the cause of the hypersomnolence We will continue to treat her pneumonia and COPD exacerbation Once she is stabilized she will need work-up for the lung tumor. Code Status: Do Not Attempt Resuscitation Time spent on advance care plannin
[2022-07-24] MEDS: POTASSIUM CHLOR 10 MEQ/100 ML 10 MEQ/100 ML BAG IV SCH ×4 (17:20→22:24)
[2022-07-24] MEDS: SODIUM CHLORIDE 0.9% 1,000 ML IV SCH (22:25)
[2022-07-25] MEDS: SODIUM CHLORIDE FLUSH 0.9% 10 ML SYRINGE IVP SCH ×3 (04:51→16:38)
[2022-07-25 05:18] LABS: ALBUMIN 2.8 g/dL (3.2-5.5); ALBUMIN/GLOBULIN RATIO 0.8 (1.0-2.2); ALKALINE PHOSPHATASE 73 IU/L (42-121); ALT ALANINE AMINOTRANSFERASE 15 IU/L (10-60); AST ASPARTATE AMINOTRANSFERASE 12 IU/L (10-42); BILIRUBIN,TOTAL 0.6 mg/dL (0.2-1.0); BUN - BLOOD UREA NITROGEN < 5 mg/dL (6-20); CALCIUM 8.3 mg/dL (8.5-10.3); CARBON DIOXIDE - CO2 32 mmol/L (21-32); CHLORIDE 85 mmol/L (101-111); CREATININE 0.3 mg/dL (0.4-1.0); GFR - MDRD 226 (>89); GLUCOSE 165 mg/dL (70-100); MAGNESIUM 1.4 mg/dL (1.7-2.8); POTASSIUM 2.7 mmol/L (3.5-5.0); SODIUM 125 mmol/L (135-145); TOTAL PROTEIN 6.3 g/dL (6.7-8.2)
[2022-07-25] MEDS: methylPREDNISolone SUCCINATE 40 MG/ML VIAL IVP SCH ×3 (05:21→21:32)
[2022-07-25] MEDS: IPRATROPIUM/ALBUTEROL 3 ML NEB INH SCH ×4 (07:39→20:00)
[2022-07-25] MEDS: BUDESONIDE 0.5 MG/2 ML NEB INH SCH ×2 (07:39→20:00)
[2022-07-25] MEDS: THIAMINE 100 MG TABLET PO SCH (08:56)
[2022-07-25] MEDS: PRENATAL VITAMIN TABLET PO SCH (08:56)
[2022-07-25] MEDS: cefTRIAXone 1 GM in SODIUM CHLORIDE 0.9% MINIBAG 100 ML IV SCH (08:56)
[2022-07-25] MEDS: OSELTAMIVIR 75 MG CAPSULE PO SCH ×2 (08:56→20:35)
[2022-07-25] MEDS: guaiFENesin 600 MG TABLET PO SCH ×2 (08:56→20:35)
[2022-07-25] MEDS ORDERED: MAGNESIUM SULFATE 2 GRAM 2 GM/50 ML BAG IV ONE (08:57)
[2022-07-25] MEDS: POTASSIUM CHLOR 10 MEQ/100 ML 10 MEQ/100 ML BAG IV SCH ×5 (09:04→15:43)
[2022-07-25] MEDS: AZITHROMYCIN INJ 500 MG in SODIUM CHLORIDE 0.9% 250 ML IV SCH (09:47)
[2022-07-25] MEDS: LACTULOSE 10 GM /15 ML UDC PO SCH (10:27)
--- NOTE | 2022-07-25 17:53 | PROVIDER PROGRESS NOTE ---
Assessment/Plan - Problem List (1) CAP (community acquired pneumonia) Assessment/Plan: She has a wet productive cough. She has improved wheezing but still has loud rhonchi on exam. Her cough is stronger today since she is not as somnolent. The admission Chest x-ray showed no infiltrate. She is positive for influenza A. A CT chest was therefore done and "tree-in-bud" changes were reported., consistent with infection. Plan: We ordered sputum for culture, but she never gave a sample. She has been started on oral Tamiflu. Will start empiric antibx, Zithromax and Ceftriaxone Will start Duonebs scheduled QID and prn Will start Montelukast in pm Will start iv steroids and inhaled steroids (2) Influenza infection She has had a cough and fatigue and anorexia for 5 days before admission. She was only tested for COVID in the ED at presentation. She had the complete PCR respiratory testing after admission, and it is positive for influenza A Plan: Tamiflu was ordered to start William diet has been advanced to solids and she is tolerating this. (3) COPD with exacerbation Conclusion/Plan: As above in #1. Plan: Continue suppl O2 if needed to keep sats >88%. If she need a Nicotine patch for urges, after she is not so somnolent, will orde r that. (4) Hyponatremia Conclusion/Plan: We suspect this is hypovolemic hyponatremia from poor oral intake for many days recently. She first had a Na of 108, but signed out AMA, returned home, came back 3 hours later after a family member convinced her to return. At the second ER visit and admission to de, she started with a serum Na of 117, which has increased slowly and was 130 last evening, but today is 125. She is sipping on alot of water, since she is more awake today. Plan: Continue on IV NS. Will add a free water restriction, but she can have broth or juices, or Gatorade. OK for Gatorade from home. The plan is to continue correction of her serum sodium at no more than 8 mEq per 24 hours, to prevent neurologic problems Follow serum Na every 12 hours (5) Hypokalemia Conclusion/Plan: This is also likely related to her poor oral intake but there is also history of chronic diarrhea, that she confirmed to me at admission, she still has, so she could also be losing potassium in diarrhea. Plan: Cont to use IV K riders. Continue telemetry. Follow BMP daily (6) Obtundation Assessment/Plan: Improved. After admission she slept for 3 days straight yesterday. Today is the most awake I have seen her with eyes wide open and she interacts with people in the room. She is apathetic however. She says she does not want to make decisions about the lung mass. We ordered PT and OT to start>> she refused them every day. Her son Jono is mostly in the room and has helped her up from the bed to the commode and back Plan: Continue iv hydration and symptomatic support We found that her ammonia level is very high and this may correlate with when she is the most obtunded. Continue with Lactulose. (7) Alcohol abuse Conclusion/Plan: She did tell me at admission, that she drinks 4 glasses of Zinfindel per day. The next day, her family at bedside and son on Facetime, confirmed heavy alcohol use. 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 Perhaps the alcohol gives her "energy" by disinhibiting her. We ordered CIWA protocol, but no scheduled Librium was ordered because she was already so somnolent. Her LFTs were normal on admission labs. This could mean mild alcohol use or a cirrhotic burned out liver. We found that her ammonia level is very high and this may correlate with when she is the most obtunded. Plan: She has received 2 days of Banana Bag iv. Now is getting oral MOV and oral Thiamine. Continue iv NS and a diet Continue with Lactulose. SW consult regarding alcoholism, but to me she says "stop bringing that up". (8) Jamesq falls (at home) She could not give me a detailed or prolonged history when I met her, but answered appropriately. Family members told me yesterday that there is a histo ry of 3 falls recently: 1 on 07/19 when she was stepping into a sunken living room in her home and fell backward. Then 2 more falls happened on 07/20, both happened when she was getting out of the nephew's car and she fell backward into the passenger seat, hitting her back of her head on the dashboard. There is a long Hx of falls, which I learned from reading her EMR. These have caused elbow trauma, disruption of elbow hardware, a pelvic fracture and a hip fracture. Due to concern that these recent falls may have caused trauma or intracranial hemorrhage, leading to the new obtundation, STAT CTs were ordered of the head, C-spine, pelvis and lower extremities. The results showed she did not have any acute intracranial abnormality including no brain hemorrhage. C-spine has been cleared. She does have a new L5 compression fracture that is acute, and new since April of this year. Other v ertebra have old compressions. The legs showed no fractures or dislocations, but osteopenia reported. In April 2022, she had a broken hip and underwent hip surgery and while in rehab, her was also admitted to the same rehab facility, same room, and he there 2 mos ago. 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 Plan: We ordered a lidocaine patch over the vertebral area Will order PT and OT to evaluate and work with her. (9) Lung mass Because of her cough in a smoker, and chest x-ray that showed no infiltrates or mass, she underwent a CT of the chest. This was read as having a tree-in bud- inflammation/infection and a spiculated lesion in the right upper lobe and enlarged mediastinal lymph nodes consistent with metastasis. This is very likely from her heavy smoking history. I again informed the patient about this finding, because she said to family that she was not told and remembers no work-up or tests done here. Plan: The son Jono, her DPOA, wants to help her make decisions and offer support, (and he lost his father 2 mos ago). Jono requested that she be transferred to hospital with higher level of care that has safemaker. This request was also made by the patient's brother here from [place] and [id number], [id number], nephew who were all at the bedside today and I spoke to (10) Moderate protein calorie malnutrition Conclusion/Plan: Her BMI is 15.8. The family reported her poor oral intake for an unknown duration. Per our Manager Location, she has had nutritional intake of less than 50% of recommended for 1 week. She has muscle wasting in the temporal region and loss of subcutaneous fat in the ocular region. Plan: Continue with IV hydration. Nutrition consult was ordered to help her increase calories and protein, when we advance her diet. - Current Meds Current Meds: Current Medications Generic Name Dose Route Start Last Admin Trade Name Freq PRN Reason Stop Dose Admin Acetaminophen 650 mg 07/21/22 12:03 07/24/22 05:49 Acetaminophen 325 Mg Tablet PO 650 mg Q4HR PRN Administration Pain 1 to 4, or Fever Albuterol/Ipratropium 3 ml 07/23/22 15:00 07/25/22 16:14 Ipratropium/Albuterol 3 Ml Neb INH 3 ml RTQID ALFREDA Administration Budesonide 0.5 mg 07/23/22 19:00 07/25/22 07:39 Budesonide 0.5 Mg/2 Ml Neb INH 0.5 mg RTBID ALFREDA Administration Guaifenesin 600 mg 07/23/22 21:00 07/25/22 08:56 Guaifenesin 600 Mg Tablet PO 600 mg BID ALFREDA Administration Sodium Chloride 1,000 mls @ 40 mls/hr 07/23/22 14:17 07/24/22 22:25 Normal Saline 0.9% IV 40 mls/hr .Q25H ALFREDA Administration Ceftriaxone Sodium 1 gm/ 100 mls @ 200 mls/hr 07/24/22 11:00 07/25/22 09:50 Sodium Chloride IV Infused DAILY ALFREDA Infusion Azithromycin 500 mg/ Sodium 250 mls @ 250 mls/hr 07/24/22 12:00 07/25/22 11:30 Chloride IV 07/26/22 09:59 Infused DAILY ALFREDA Infusion Lactulose 10 gm 07/24/22 12:00 07/25/22 10:27 Lactulose 10 Gm /15 Ml Udc PO 10 gm DAILY ALFREDA Administration Lidocaine 1 patch 07/22/22 18:43 07/23/22 08:07 Lidocaine Patch 5% TOP 1 patch DAILY PRN Administration PAIN Methylprednisolone 40 mg 07/23/22 22:00 07/25/22 14:38 Methylprednisolone Succinate 40 Mg/Ml Vial IVP 40 mg TID ALFREDA Administration Oseltamivir Phosphate 75 mg 07/21/22 21:00 07/25/22 08:56 Oseltamivir 75 Mg Capsule PO 07/26/22 09:01 75 mg BID ALFREDA Administration Multivit/Folic Acid/Iron 1 tab 07/24/22 12:00 07/25/22 08:56 Vitamin Tablet PO 1 tab DAILYWM ALFREDA Administration Sodium Chloride 10 ml 07/21/22 12:03 07/24/22 05:42 Sodium Chloride Flush 0.9% 10 Ml Syringe IVP 10 ml PRN PRN Administration NEEDED PER PROVIDER ORDERS Sodium Chloride 10 ml 07/21/22 17:00 07/25/22 16:38 Sodium Chloride Flush 0.9% 10 Ml Syringe IVP Not Given 0100,0900,1700 ALFREDA Thiamine HCl 100 mg 07/24/22 12:00 07/25/22 08:56 Thiamine 100 Mg Tablet PO 100 mg DAILY ALFREDA Administration - Lab Result Fish Bone Diagrams: 07/23/22 04:20 07/25/22 04:41 - Additional Planning My Orders: My Active Orders 07/26/22 05:00 AMMONIA [CHEM] DAILYLAB CBC - COMP BLD CT W/AUTO DIFF [HEME] DAILYLAB CMP [COMPREHENSIVE METABOLIC PANEL] [CHEM] DAILYLAB 07/27/22 05:00 AMMONIA [CHEM] DAILYLAB CBC - COMP BLD CT W/AUTO DIFF [HEME] DAILYLAB CMP [COMPREHENSIVE METABOLIC PANEL] [CHEM] DAILYLAB 07/28/22 05:00 AMMONIA [CHEM] DAILYLAB CBC - COMP BLD CT W/AUTO DIFF [HEME] DAILYLAB CMP [COMPREHENSIVE METABOLIC PANEL] [CHEM] DAILYLAB 07/29/22 05:00 CBC - COMP BLD CT W/AUTO DIFF [HEME] DAILYLAB Subjective - Subjective Patient Reports: Other (Does not want to be woken, wishes she could go home. Says she does not want to make a decision about how to proceed with her lungs or her alcoholism.) Objective Vital Signs: Vital Signs - 24 hr 07/24/22 07/24/22 07/25/22 20:05 21:00 00:03 Temperature 36.5 C 36.6 C Heart Rate 84 Heart Rate [ 95 77 Brachial] Respiratory 18 20 16 Rate Blood Pressure 149/92 H 169/97 H [Right Brachial artery] O2 Saturation 93 95 If not protocol 3 3 3 : Oxygen Flow, liters/minute 07/25/22 07/25/22 07/25/22 04:35 07:42 07:57 Temperature 36.4 C L 37 C Heart Rate 78 Heart Rate [ 72 79 Brachial] Respiratory 16 17 24 Rate Blood Pressure 159/89 H 153/93 H [Right Brachial artery] O2 Saturation 94 95 If not protocol 3 2 3 : Oxygen Flow, liters/minute 07/25/22 07/25/22 12:28 16:17 Temperature 36.3 C L Heart Rate 78 Heart Rate [ 87 Brachial] Respiratory 24 18 Rate Blood Pressure 143/67 H [Right Brachial artery] O2 Saturation 94 If not protocol 3 3 : Oxygen Flow, liters/minute Oxygen O2 Source Nasal cannula Oxygen Flow Rate 2 I&O (Last 24 Hrs): Intake and Output Totals x24h 07/23/22 07/24/22 07/25/22 23:59 23:59 23:59 Intake Total 3068.2 3271.667 1480 Output Total 1950 1150 950 Balance 1118.2 2121.667 530 General: Alert, No acute distress, Other (Cachectic (BMI 15)) HEENT: Atraumatic, EOMI, Mucous membr. moist/pink Neck: Supple, No JVD Neuro: Alert, Non Focal, Other (No tremor, no nystagmus. Poor memory) Cardiovascular: Regular rate Respiratory: No respiratory distress, Rhonchi Abdomen: Normal bowel sounds, Soft Extremities: No clubbing, No edema, Other (Muscle wasting) - Results Results: Laboratory Results WBC 10.6 x10^3/uL (4.8-10.8) 07/23/22 04:20 RBC 3.56 10^6/uL (4.20-5.40) L 07/23/22 04:20 Hgb 11.6 g/dL (12.0-16.0) L 07/23/22 04:20 Hct 34.4 % (37.0-47.0) L 07/23/22 04:20 MCV 96.6 fL (81.0-99.0) 07/23/22 04:20 MCH 32.6 pg (27.0-31.0) H 07/23/22 04:20 MCHC 33.7 g/dL (32.0-36.0) 07/23/22 04:20 RDW 13.9 % (12.0-15.0) 07/23/22 04:20 Plt Count 175 10^3/uL (130-450) 07/23/22 04:20 MPV 8.4 fL (7.9-10.8) 07/23/22 04:20 Neut # (Auto) Not Reportable 07/23/22 04:20 Lymph # (Auto) Not Reportable 07/23/22 04:20 [place] # (Auto) Not Reportable 07/23/22 04:20 Eos # (Auto) Not Reportable 07/23/22 04:20 Baso # (Auto) Not Reportable 07/23/22 04:20 Absolute Nucleated RBC Not Reportable 07/23/22 04:20 Total Counted 100 07/23/22 04:20 Band Neuts % (Manual) 0 % (0-10) 07/23/22 04:20 Abnorm Lymph % (Manual) 0 % 07/23/22 04:20 Nucleated RBC % Not Reportable 07/23/22 04:20 Neutrophils # (Manual) 7.7 10^3/uL (1.5-6.6) H 07/23/22 04:20 Lymphocytes # (Manual) 1.4 10^3/uL (1.5-3.5) L 07/23/22 04:20 Monocytes # (Manual) 1.5 10^3/uL (0.0-1.0) H 07/23/22 04:20 Eosinophils # (Manual) 0.0 10^3/uL (0-0.7) 07/23/22 04:20 Basophils # (Manual) 0.0 10^3/uL (0-0.1) 07/23/22 04:20 Differential Comment MANUAL DIFFERENTIAL 07/23/22 04:20 WBC Morphology NORMAL APPEARANCE (NORMAL) 07/23/22 04:20 Platelet Estimate NORMAL (130-450,000) (NORMAL) 07/23/22 04:20 Platelet Morphology NORMAL APPEARANCE (NORMAL) 07/23/22 04:20 RBC Morph Micro Appear NORMAL APPEARANCE (NORMAL) 07/23/22 04:20 PT 10.4 secs (9.9-12.6) 07/21/22 12:44 INR 0.9 (0.8-1.2) 07/21/22 12:44 Sodium 125 mmol/L (135-145) L 07/25/22 04:41 Potassium 2.7 mmol/L (3.5-5.0) L 07/25/22 04:41 Chloride 85 mmol/L (101-111) L 07/25/22 04:41 Carbon Dioxide 32 mmol/L (21-32) 07/25/22 04:41 Anion Gap 8.0 (6-13) 07/25/22 04:41 BUN < 5 mg/dL (6-20) L 07/25/22 04:41 Creatinine 0.3 mg/dL (0.4-1.0) L 07/25/22 04:41 Estimated GFR (MDRD) 226 (>89) 07/25/22 04:41 Glucose 165 mg/dL (70-100) H 07/25/22 04:41 Calcium 8.3 mg/dL (8.5-10.3) L 07/25/22 04:41 Phosphorus 3.0 mg/dL (2.5-4.6) 07/25/22 04:41 Magnesium 1.4 mg/dL (1.7-2.8) L 07/25/22 04:41 Total Bilirubin 0.6 mg/dL (0.2-1.0) 07/25/22 04:41 Direct Bilirubin 0.1 mg/dL (0.1-0.5) 07/24/22 05:00 AST 12 IU/L (10-42) 07/25/22 04:41 ALT 15 IU/L (10-60) 07/25/22 04:41 Alkaline Phosphatase 73 IU/L (42-121) 07/25/22 04:41 Ammonia 75.0 umol/L (7-35) H 07/25/22 05:07 Total Protein 6.3 g/dL (6.7-8.2) L 07/25/22 04:41 Albumin 2.8 g/dL (3.2-5.5) L 07/25/22 04:41 Globulin 3.5 g/dL (2.1-4.2) 07/25/22 04:41 Albumin/Globulin Ratio 0.8 (1.0-2.2) L 07/25/22 04:41 TSH 0.48 uIU/mL (0.34-5.60) 07/20/22 12:04 Free T4 1.36 ng/dL (0.58-1.64) 07/20/22 12:04 Nasal Adenovirus (PCR) NOT DETECTED 07/21/22 18:05 Nasal B. parapertussis DNA (PCR) NOT DETECTED 07/21/22 18:05 Nasal Coronavir 229E PCR NOT DETECTED 07/21/22 18:05 Nasal Coronavir HKU1 PCR NOT DETECTED 07/21/22 18:05 Nasal Coronavir NL63 PCR NOT DETECTED 07/21/22 18:05 Nasal Coronavir OC43 PCR NOT DETECTED 07/21/22 18:05 Nasal Enterovir/Rhinovir PCR NOT DETECTED 07/21/22 18:05 Nasal Influenza A H3 PCR DETECTED A 07/21/22 18:05 Nasal Influenza B PCR NOT DETECTED 07/21/22 18:05 Nasal Parainfluen 1 PCR NOT DETECTED 07/21/22 18:05 Nasal Parainfluen 2 PCR NOT DETECTED 07/21/22 18:05 Nasal Parainfluen 3 PCR NOT DETECTED 07/21/22 18:05 Nasal Parainfluen 4 PCR NOT DETECTED 07/21/22 18:05 Nasal RSV (PCR) NOT DETECTED 07/21/22 18:05 Nasal B.pertussis DNA PCR NOT DETECTED 07/21/22 18:05 Nasal C.pneumoniae (PCR) NOT DETECTED 07/21/22 18:05 Jerry Human Metapneumo PCR NOT DETECTED 07/21/22 18:05 Nasal M.pneumoniae (PCR) NOT DETECTED 07/21/22 18:05 Nasal SARS-CoV-2 (PCR) NOT DETECTED 07/21/22 18:05 SARS-CoV-2 (PCR) NOT DETECTED 07/20/22 22:07 - Procedures Procedures: Procedures EXCISION OF DUODENUM, ENDO, DIAGN (04/15/16) EXCISION OF ESOPHAGUS, ENDO, DIAGN (04/15/16) EXCISION OF LARGE INTESTINE, ENDO, DIAGN (04/15/16) EXCISION OF STOMACH, ENDO, DIAGN (04/15/16) REMOVAL OF INT FIX FROM L ULNA, OPEN APPROACH (09/06/19) REPOSITION LEFT ULNA WITH INT FIX, OPEN APPROACH (09/06/19)
[2022-07-25] MEDS: ACETAMINOPHEN 325 MG TABLET PO PRN (20:35)
[2022-07-25] MEDS: SODIUM CHLORIDE 0.9% 1,000 ML IV SCH (21:34)
[2022-07-26] MEDS: SODIUM CHLORIDE FLUSH 0.9% 10 ML SYRINGE IVP SCH ×3 (00:27→16:53)
[2022-07-26 05:16] LABS: BASOPHILS % (AUTO) 0.2 %; HCT - HEMATOCRIT 33.5 % (37.0-47.0); HGB - HEMOGLOBIN 11.5 g/dL (12.0-16.0); LYMPHOCYTES % (AUTO) 21.2 %; MEAN CORPUSCULAR HGB CONC 34.3 g/dL (32.0-36.0); MEAN CORPUSCULAR VOLUME 96.3 fL (81.0-99.0); MEAN PLATELET VOLUME 8.2 fL (7.9-10.8); MONOCYTES % (AUTO) 13.8 %; NEUTROPHILS % (AUTO) 63.8 %; PLT - PLATELET COUNT 298 10^3/uL (130-450); RED BLOOD COUNT 3.48 10^6/uL (4.20-5.40); RED CELL DISTRIBUTION WIDTH 14.5 % (12.0-15.0)
[2022-07-26 05:35] LABS: ABNORMAL LYMPHS % (MANUAL) 0 %; BAND NEUTROPHILS % (MANUAL) 0 %
[2022-07-26 05:58] LABS: ALBUMIN 2.9 g/dL (3.2-5.5); ALBUMIN/GLOBULIN RATIO 0.8 (1.0-2.2); ALKALINE PHOSPHATASE 70 IU/L (42-121); ALT ALANINE AMINOTRANSFERASE 16 IU/L (10-60); AST ASPARTATE AMINOTRANSFERASE 14 IU/L (10-42); BILIRUBIN,TOTAL 0.4 mg/dL (0.2-1.0); BUN - BLOOD UREA NITROGEN < 5 mg/dL (6-20); CALCIUM 8.6 mg/dL (8.5-10.3); CARBON DIOXIDE - CO2 30 mmol/L (21-32); CHLORIDE 87 mmol/L (101-111); CREATININE 0.3 mg/dL (0.4-1.0); GFR - MDRD 226 (>89); GLUCOSE 143 mg/dL (70-100); POTASSIUM 2.8 mmol/L (3.5-5.0); SODIUM 127 mmol/L (135-145); TOTAL PROTEIN 6.4 g/dL (6.7-8.2)
[2022-07-26 06:15] LABS: DIFFERENTIAL COMMENT MANUAL DIFFERENTIAL; LYMPHOCYTES # (MANUAL) 1.1 10^3/uL (1.5-3.5); LYMPHOCYTES % (MANUAL) 22 %; MONOCYTES # (MANUAL) 0.6 10^3/uL (0.0-1.0); NEUTROPHILS # (MANUAL) 3.3 10^3/uL (1.5-6.6); PLATELET ESTIMATE, MANUAL NORMAL (130-450,000) (NORMAL); RBC MORPHOLOGY (MULTIPLE) NORMAL APPEARANCE (NORMAL)
[2022-07-26] MEDS: methylPREDNISolone SUCCINATE 40 MG/ML VIAL IVP SCH ×3 (06:35→21:36)
[2022-07-26] MEDS: PRENATAL VITAMIN TABLET PO SCH (08:10)
[2022-07-26] MEDS: OSELTAMIVIR 75 MG CAPSULE PO SCH (08:11)
[2022-07-26] MEDS: guaiFENesin 600 MG TABLET PO SCH ×2 (08:11→21:35)
[2022-07-26] MEDS: THIAMINE 100 MG TABLET PO SCH (08:12)
[2022-07-26] MEDS: cefTRIAXone 1 GM in SODIUM CHLORIDE 0.9% MINIBAG 100 ML IV SCH (08:13)
[2022-07-26] MEDS: IPRATROPIUM/ALBUTEROL 3 ML NEB INH SCH ×4 (08:28→17:57)
[2022-07-26] MEDS: BUDESONIDE 0.5 MG/2 ML NEB INH SCH ×2 (08:28→17:56)
--- NOTE | 2022-07-26 09:13 | PROVIDER PROGRESS NOTE ---
Assessment/Plan - Problem List (1) CAP (community acquired pneumonia) Assessment/Plan: She still has a wet productive cough. She has improved her wheezing but still has loud rhonchi on exam. Her cough is stronger for the past 3 days since she is not as somnolent. The admission Chest x-ray showed no infiltrate. She is positive for influenza A. A CT chest was therefore done and "tree-in-bud" changes were reported, consistent with infection. Plan: We ordered sputum for culture, but she never gave a sample. She has been started on oral Tamiflu. Cont empiric antibx, Zithromax and Ceftriaxone Cont Duonebs scheduled QID and prn Cont Montelukast in pm Cont iv steroids and inhaled steroids. Will start to decrease iv steroid dose, since she is not wheezing. Will recheck a CXR today (2) Influenza infection She has had a cough and fatigue and anorexia for 5 days before admission. She was only tested for COVID in the ED at presentation. She had the complete PCR respiratory testing after admission, and it is positive for influenza A Plan: Tamiflu was started William diet has been advanced to solids and she is tolerating this. (3) COPD with exacerbation Conclusion/Plan: As above in #1. Plan: Continue suppl O2 if needed to keep sats >88%. If she need a Nicotine patch for urges, now that she is not so somnolent, will order that. (4) Lung mass Because of her cough in a smoker, and chest x-ray that showed no infiltrates or mass, she underwent a CT of the chest. This was read as having a tree-in bud-inflammation/infection and a spiculated lesion in the right upper lobe and enlarged mediastinal lymph nodes consistent with metastasis. Her lung cancer risk is from her heavy smoking history. I again informed the patient about this finding the last 2 days, because she told her family that she was not told and remembers no work-up or tests done here. Today was the first day that the patient herself brought up the topic of lung cancer and said she does want it evaluated, does not want to , does not want to leave her son an orphan. Plan: The son Jono, her DPOA, wants to help her make decisions and offer support, (and he lost his father 2 mos ago). Jono requested that she be transferred to hospital with higher level of care that has comb setter. This request was also made by the patient's brother here from [place] and [id number], [id number], nephew who were all at the bedside yesterday. Today the son and patient's brother are in the room, and the patient herself all are interested in a transfer to a larger hospital that have specialists. I will start to reach out to facilities, and see if a comb setter and hospitalist would accept her. (5) HTN She initially had high blood pressures which could have been from withdrawal. It has been many days since admission, therefore she is not going through withdrawal. Now she is running blood pressures as high as 176 systolic Plan: We stopped the CIWA protocol orders We will start empiric Norvasc 2.5 mg today daily. (6) Hyponatremia Conclusion/Plan: We suspected this is hypovolemic hyponatremia from poor oral intake for many days recently. She first had a Na of 108, but signed out AMA, returned home, came back 3 hours later after a family member convinced her to return. At the second ER visit and admission, she started with a serum Na of 117, which has increased slowly and was 130 then dropped to 125, as she awoke and started drinking alot of water, on her bedside table. Since 07/25, free water restriction has been ordered. She can sip on Gatorade, the son was told. With that change, the serum Sodium went from 125 yesterday to 127 this morning Plan: Continue on IV NS. Continue a free water restriction, but she can have broth or juices, or Gatorade. OK for Gatorade from home was written. Follow serum Na every 12 hours>> daily eventually (7) Hypokalemia Conclusion/Plan: This is also likely related to her poor oral intake but there is also history of chronic diarrhea, that she confirmed to me at admission, she still has, so she could also have been losing potassium in diarrhea. Plan: Cont to use IV K riders. Continue telemetry. Follow BMP daily (8) Hypomagnesemia Also from poor intake and alcoholism Plan: replace with Mg riders then po (9) Alcohol abuse Conclusion/Plan: She did tell me at admission, that she drinks 4 glasses of Zinfindel per day. Since then, her family and son, confirmed heavy alcohol use for decades. 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 Perhaps the alcohol gives her "energy" by disinhibiting her. We ordered CIWA protocol, but she was so sleepy for 3 days that she got no Ativan and no Librium was ever ordered. Her LFTs were normal on admission labs. This could mean mild alcohol use, or she may have a cirrhotic burned out liver. At CT scans the liver was not commented on. We found that her ammonia level is very high and this may correlate with when she is the most obtunded. Plan: She first received 2 days of Banana Bag iv. Now is getting oral MOV and oral Thiamine daily. Continue iv NS and a diet Continue with Lactulose, titrate to diarrhea. SW consult ordered regarding alcoholism, but to me she says "stop bringing that up". She was too obtunded to discuss her situation with SW, and then since she awoke, we have had no SW in the building (due to holiday schedules). (10) Obtundation Assessment/Plan: Improved. After admission she slept for 3 days straight. The son did not think she was withdrawing from meth. We thought she had a metabolic encephalopathy from the Influenza infection, the severe Hyponatremia and from alcohol withdrawal. We found that her ammonia level is very high and this may correlate with when she is the most obtunded. For the last 2 days she interacts more with people in the room and is eating. She is very apathetic however; she says she does not want to make decisions about the lung mass and when talking about her alcohol abuse she says to me "stop bringing that up". We ordered PT and OT to start>> she has refused them every day. Her son Jono is mostly in the room and has helped her up from the bed to the commode and back Plan: Continue iv hydration and symptomatic support We found that her ammonia level is very high and this may correlate with when she is the most obtunded. Continue with Lactulose, titrating to loose stools. (11) Freq falls (at home) She could not give me a detailed or prolonged history when I met her, but answered appropriately. Family members told me yesterday that there is a history of 3 falls recently: 1 on 07/19 when she was stepping into a sunken living room in her home and fell backward. Then 2 more falls happened on 07/20, both happened when she was getting out of the nephew's car and she fell backward into the passenger seat, hitting her back of her head on the dashboard. There is a long Hx of falls, which I learned from reading her EMR. These have caused elbow trauma, disruption of elbow hardware, a pelvic fracture and a hip fracture. Due to concern that these recent falls may have caused trauma or intracranial hemorrhage, leading to the new obtundation, STAT CTs were ordered of the head, C-spine, pelvis and lower extremities. The results showed she did not have any acute intracranial abnormality including no brain hemorrhage. C-spine has been cleared. She does have a new L5 compression fracture that is acute, and new since April of this year. Other vertebrae have old compressions. The legs showed no fractures or dislocations, but osteopenia reported. In April 2022, she had a broken hip and underwent hip surgery Plan: We ordered a lidocaine patch over the vertebral area prn, will change that to scheduled. We ordered PT and OT to evaluate and work with her. She was too obtunded to start with PT and refused, and then since she awoke, we have had no PT in the building (due to holiday schedules). (12) Moderate protein calorie malnutrition Conclusion/Plan: Her BMI is 15.8. The family reported her poor oral intake for an unknown duration. Per our Hydrochloric Area Supervisor, she has had nutritional intake of less than 50% of recommended for 1 week. She has muscle wasting in the temporal region and loss of subcutaneous fat in the ocular region. In April 2022, she had a broken hip and underwent hip surgery and while in rehab, her was also admitted to the same rehab facility, same room, and he there, next to her 2 mos ago. 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 I susopect she is depressed Plan: Continue with IV hydration. Nutrition consult was ordered to help her increase calories and protein, when we advance her diet. SW consult ordered but she was too sleepy to have discussions and since she is awake, there is no SW here (over the hol). - Current Meds Current Meds: Current Medications Generic Name Dose Route Start Last Admin Trade Name Freq PRN Reason Stop Dose Admin Acetaminophen 650 mg 07/21/22 12:03 07/25/22 20:35 Acetaminophen 325 Mg Tablet PO 650 mg Q4HR PRN Administration Pain 1 to 4, or Fever Albuterol/Ipratropium 3 ml 07/23/22 15:00 07/26/22 08:28 Ipratropium/Albuterol 3 Ml Neb INH 3 ml RTQID ALFREDA Administration Budesonide 0.5 mg 07/23/22 19:00 07/26/22 08:28 Budesonide 0.5 Mg/2 Ml Neb INH 0.5 mg RTBID ALFREDA Administration Guaifenesin 600 mg 07/23/22 21:00 07/26/22 08:11 Guaifenesin 600 Mg Tablet PO 600 mg BID ALFREDA Administration Sodium Chloride 1,000 mls @ 40 mls/hr 07/23/22 14:17 07/25/22 21:34 Normal Saline 0.9% IV 40 mls/hr .Q25H ALFREDA Administration Ceftriaxone Sodium 1 gm/ 100 mls @ 200 mls/hr 07/24/22 11:00 07/26/22 08:13 Sodium Chloride IV 200 mls/hr DAILY ALFREDA Administration Azithromycin 500 mg/ Sodium 250 mls @ 250 mls/hr 07/24/22 12:00 07/25/22 11:30 Chloride IV 07/26/22 09:59 Infused DAILY ALFREDA Infusion Lactulose 10 gm 07/24/22 12:00 07/25/22 10:27 Lactulose 10 Gm /15 Ml Udc PO 10 gm DAILY ALFREDA Administration Methylprednisolone 40 mg 07/23/22 22:00 07/26/22 06:35 Methylprednisolone Succinate 40 Mg/Ml Vial IVP 40 mg TID ALFREDA Administration Oseltamivir Phosphate 75 mg 07/21/22 21:00 07/26/22 08:11 Oseltamivir 75 Mg Capsule PO 07/26/22 09:01 75 mg BID ALFREDA Administration Multivit/Folic Acid/Iron 1 tab 07/24/22 12:00 07/26/22 08:10 Vitamin Tablet PO 1 tab DAILYWM ALFREDA Administration Sodium Chloride 10 ml 07/21/22 12:03 07/24/22 05:42 Sodium Chloride Flush 0.9% 10 Ml Syringe IVP 10 ml PRN PRN Administration NEEDED PER PROVIDER ORDERS Sodium Chloride 10 ml 07/21/22 17:00 07/26/22 06:36 Sodium Chloride Flush 0.9% 10 Ml Syringe IVP 10 ml 0100,0900,1700 ALFREDA Administration Thiamine HCl 100 mg 07/24/22 12:00 07/26/22 08:12 Thiamine 100 Mg Tablet PO 100 mg DAILY ALFREDA Administration - Lab Result Fish Bone Diagrams: 07/26/22 05:05 07/26/22 05:05 - Additional Planning My Orders: My Active Orders 07/25/22 18:09 Miscellaenous Nursing Order [RC] QSHIFT 07/26/22 05:00 MAGNESIUM [CHEM] Routine 07/26/22 08:57 Chest 1 View X-Ray [XR] Stat 07/26/22 09:00 Lidocaine Patch 5% [Lidoderm Patch] 1 patch TOP DAILY amLODIPine [Norvasc] 2.5 mg PO DAILY 07/27/22 05:00 AMMONIA [CHEM] DAILYLAB CBC - COMP BLD CT W/AUTO DIFF [HEME] DAILYLAB CMP [COMPREHENSIVE METABOLIC PANEL] [CHEM] DAILYLAB MAGNESIUM [CHEM] DAILYLAB 07/28/22 05:00 AMMONIA [CHEM] DAILYLAB CBC - COMP BLD CT W/AUTO DIFF [HEME] DAILYLAB CMP [COMPREHENSIVE METABOLIC PANEL] [CHEM] DAILYLAB MAGNESIUM [CHEM] DAILYLAB 07/29/22 05:00 CBC - COMP BLD CT W/AUTO DIFF [HEME] DAILYLAB MAGNESIUM [CHEM] DAILYLAB 07/30/22 05:00 MAGNESIUM [CHEM] DAILYLAB Subjective - Subjective Patient Reports: Feeling Better (She denies any back pain. She is still very weak, has only gotten up to the commode several times. She does want to proceed forward with aggressive lung treatment and evaluation of her lung tumor, she told me today.) Objective Vital Signs: Vital Signs - 24 hr 07/25/22 07/25/22 07/25/22 12:28 16:17 17:00 Temperature 36.3 C L 36.7 C Heart Rate 78 Heart Rate [ 87 80 Brachial] Respiratory 24 18 24 Rate Blood Pressure 143/67 H 147/68 H [Right Brachial artery] O2 Saturation 94 95 If not protocol 3 3 3 : Oxygen Flow, liters/minute 07/25/22 07/25/22 07/26/22 20:00 21:00 00:15 Temperature 36.7 C 36.3 C L Heart Rate 82 Heart Rate [ 73 69 Brachial] Respiratory 18 23 18 Rate Blood Pressure 148/75 H 183/79 H [Right Brachial artery] O2 Saturation 95 92 If not protocol 3 3 3 : Oxygen Flow, liters/minute 07/26/22 07/26/22 07/26/22 00:41 05:00 07:26 Temperature 36.3 C L 36.3 C L Heart Rate Heart Rate [ 68 73 71 Brachial] Respiratory 16 20 Rate Blood Pressure 170/87 H 164/94 H 155/78 H [Right Brachial artery] O2 Saturation 94 92 If not protocol 3 3 : Oxygen Flow, liters/minute 07/26/22 08:29 Temperature Heart Rate 70 Heart Rate [ Brachial] Respiratory 17 Rate Blood Pressure [Right Brachial artery] O2 Saturation If not protocol 3 : Oxygen Flow, liters/minute Oxygen O2 Source Nasal cannula Oxygen Flow Rate 2 I&O (Last 24 Hrs): Intake and Output Totals x24h 07/24/22 07/25/22 07/26/22 23:59 23:59 23:59 Intake Total 3271.667 2884 100 Output Total 1150 950 Balance 2121.667 1934 100 General: Alert, Oriented x3 HEENT: EOMI, Other (Cachectic) Neck: Supple, No JVD Neuro: Alert, Non Focal Cardiovascular: Regular rate, No murmurs Respiratory: No respiratory distress, Rhonchi (R base) Abdomen: Normal bowel sounds, Soft, No tenderness Extremities: No clubbing, No edema (Muscle wasting noted) - Results Results: Laboratory Results WBC 5.0 x10^3/uL (4.8-10.8) 07/26/22 05:05 RBC 3.48 10^6/uL (4.20-5.40) L 07/26/22 05:05 Hgb 11.5 g/dL (12.0-16.0) L 07/26/22 05:05 Hct 33.5 % (37.0-47.0) L 07/26/22 05:05 MCV 96.3 fL (81.0-99.0) 07/26/22 05:05 MCH 33.0 pg (27.0-31.0) H 07/26/22 05:05 MCHC 34.3 g/dL (32.0-36.0) 07/26/22 05:05 RDW 14.5 % (12.0-15.0) 07/26/22 05:05 Plt Count 298 10^3/uL (130-450) 07/26/22 05:05 MPV 8.2 fL (7.9-10.8) 07/26/22 05:05 Neut # (Auto) Not Reportable 07/26/22 05:05 Lymph # (Auto) Not Reportable 07/26/22 05:05 Rincon # (Auto) Not Reportable 07/26/22 05:05 Eos # (Auto) Not Reportable 07/26/22 05:05 Baso # (Auto) Not Reportable 07/26/22 05:05 Absolute Nucleated RBC Not Reportable 07/26/22 05:05 Total Counted 100 07/26/22 05:05 Band Neuts % (Manual) 0 % (0-10) 07/26/22 05:05 Abnorm Lymph % (Manual) 0 % 07/26/22 05:05 Nucleated RBC % Not Reportable 07/26/22 05:05 Neutrophils # (Manual) 3.3 10^3/uL (1.5-6.6) 07/26/22 05:05 Lymphocytes # (Manual) 1.1 10^3/uL (1.5-3.5) L 07/26/22 05:05 Monocytes # (Manual) 0.6 10^3/uL (0.0-1.0) 07/26/22 05:05 Eosinophils # (Manual) 0.0 10^3/uL (0-0.7) 07/26/22 05:05 Basophils # (Manual) 0.0 10^3/uL (0-0.1) 07/26/22 05:05 Differential Comment MANUAL DIFFERENTIAL 07/26/22 05:05 WBC Morphology NORMAL APPEARANCE (NORMAL) 07/23/22 04:20 Platelet Estimate NORMAL (130-450,000) (NORMAL) 07/26/22 05:05 Platelet Morphology NORMAL APPEARANCE (NORMAL) 07/23/22 04:20 RBC Morph Micro Appear NORMAL APPEARANCE (NORMAL) 07/26/22 05:05 PT 10.4 secs (9.9-12.6) 07/21/22 12:44 INR 0.9 (0.8-1.2) 07/21/22 12:44 Sodium 127 mmol/L (135-145) L 07/26/22 05:05 Potassium 2.8 mmol/L (3.5-5.0) L 07/26/22 05:05 Chloride 87 mmol/L (101-111) L 07/26/22 05:05 Carbon Dioxide 30 mmol/L (21-32) 07/26/22 05:05 Anion Gap 10.0 (6-13) 07/26/22 05:05 BUN < 5 mg/dL (6-20) L 07/26/22 05:05 Creatinine 0.3 mg/dL (0.4-1.0) L 07/26/22 05:05 Estimated GFR (MDRD) 226 (>89) 07/26/22 05:05 Glucose 143 mg/dL (70-100) H 07/26/22 05:05 Calcium 8.6 mg/dL (8.5-10.3) 07/26/22 05:05 Phosphorus 3.0 mg/dL (2.5-4.6) 07/25/22 04:41 Magnesium 1.4 mg/dL (1.7-2.8) L 07/25/22 04:41 Total Bilirubin 0.4 mg/dL (0.2-1.0) 07/26/22 05:05 Direct Bilirubin 0.1 mg/dL (0.1-0.5) 07/24/22 05:00 AST 14 IU/L (10-42) 07/26/22 05:05 ALT 16 IU/L (10-60) 07/26/22 05:05 Alkaline Phosphatase 70 IU/L (42-121) 07/26/22 05:05 Ammonia 62.5 umol/L (7-35) H 07/26/22 05:05 Total Protein 6.4 g/dL (6.7-8.2) L 07/26/22 05:05 Albumin 2.9 g/dL (3.2-5.5) L 07/26/22 05:05 Globulin 3.5 g/dL (2.1-4.2) 07/26/22 05:05 Albumin/Globulin Ratio 0.8 (1.0-2.2) L 07/26/22 05:05 TSH 0.48 uIU/mL (0.34-5.60) 07/20/22 12:04 Free T4 1.36 ng/dL (0.58-1.64) 07/20/22 12:04 Nasal Adenovirus (PCR) NOT DETECTED 07/21/22 18:05 Nasal B. parapertussis DNA (PCR) NOT DETECTED 07/21/22 18:05 Nasal Coronavir 229E PCR NOT DETECTED 07/21/22 18:05 Nasal Coronavir HKU1 PCR NOT DETECTED 07/21/22 18:05 Nasal Coronavir NL63 PCR NOT DETECTED 07/21/22 18:05 Nasal Coronavir OC43 PCR NOT DETECTED 07/21/22 18:05 Nasal Enterovir/Rhinovir PCR NOT DETECTED 07/21/22 18:05 Nasal Influenza A H3 PCR DETECTED A 07/21/22 18:05 Nasal Influenza B PCR NOT DETECTED 07/21/22 18:05 Nasal Parainfluen 1 PCR NOT DETECTED 07/21/22 18:05 Nasal Parainfluen 2 PCR NOT DETECTED 07/21/22 18:05 Nasal Parainfluen 3 PCR NOT DETECTED 07/21/22 18:05 Nasal Parainfluen 4 PCR NOT DETECTED 07/21/22 18:05 Nasal RSV (PCR) NOT DETECTED 07/21/22 18:05 Nasal B.pertussis DNA PCR NOT DETECTED 07/21/22 18:05 Nasal C.pneumoniae (PCR) NOT DETECTED 07/21/22 18:05 Jerry Human Metapneumo PCR NOT DETECTED 07/21/22 18:05 Nasal M.pneumoniae (PCR) NOT DETECTED 07/21/22 18:05 Nasal SARS-CoV-2 (PCR) NOT DETECTED 07/21/22 18:05 SARS-CoV-2 (PCR) NOT DETECTED 07/20/22 22:07 - Procedures Procedures: Procedures EXCISION OF DUODENUM, ENDO, DIAGN (04/15/16) EXCISION OF ESOPHAGUS, ENDO, DIAGN (04/15/16) EXCISION OF LARGE INTESTINE, ENDO, DIAGN (04/15/16) EXCISION OF STOMACH, ENDO, DIAGN (04/15/16) REMOVAL OF INT FIX FROM L ULNA, OPEN APPROACH (09/06/19) REPOSITION LEFT ULNA WITH INT FIX, OPEN APPROACH (09/06/19)
[2022-07-26] MEDS: AZITHROMYCIN INJ 500 MG in SODIUM CHLORIDE 0.9% 250 ML IV SCH (09:20)
[2022-07-26] MEDS: amLODIPine 5 MG TABLET PO SCH (09:21)
[2022-07-26] MEDS: LACTULOSE 10 GM /15 ML UDC PO SCH (09:21)
[2022-07-26] MEDS: LIDOCAINE PATCH 5% TOP SCH (09:22)
--- NOTE | 2022-07-26 09:47 | XRAY Report ---
PROCEDURE: Chest 1 View X-Ray INDICATIONS: Persistent cough, Influenza (+) TECHNIQUE: One view of the chest was acquired. COMPARISON: None. FINDINGS: Surgical changes and devices: None. Lungs and pleura: Hyperinflation and chronic interstitial change present. Patient's mandible obscure s the left lung apex. Subtle right upper lobe nodule is similar to the prior exam Mediastinum: Mediastinal contours appear normal. Heart size is normal. Bones and chest wall: No suspicious bony lesions. Overlying soft tissues appear unremarkable. IMPRESSION: Hyperinflation and chronic interstitial changes Subtle right upper lobe pulmonary nodule, stable Reviewed by: Rudi Sprague MD on 07/26/2022 8:46 AM [place] Approved by: Rudi Sprague MD on 07/26/2022 8:46 AM [place] Station ID: [id number]
[2022-07-26] MEDS: POTASSIUM CHLOR 10 MEQ/100 ML 10 MEQ/100 ML BAG IV SCH ×4 (14:11→19:26)
[2022-07-27] MEDS: SODIUM CHLORIDE FLUSH 0.9% 10 ML SYRINGE IVP SCH ×3 (01:40→16:57)
[2022-07-27] MEDS: SODIUM CHLORIDE 0.9% 1,000 ML IV SCH (04:26)
[2022-07-27 05:17] LABS: BASOPHILS % (AUTO) 0.2 %; HCT - HEMATOCRIT 33.7 % (37.0-47.0); HGB - HEMOGLOBIN 11.3 g/dL (12.0-16.0); LYMPHOCYTES # (AUTO) 0.9 10^3/uL (1.5-3.5); LYMPHOCYTES % (AUTO) 16.2 %; MEAN CORPUSCULAR HEMOGLOBIN 32.5 pg (27.0-31.0); MEAN CORPUSCULAR HGB CONC 33.5 g/dL (32.0-36.0); MEAN CORPUSCULAR VOLUME 96.8 fL (81.0-99.0); MEAN PLATELET VOLUME 8.1 fL (7.9-10.8); MONOCYTES # (AUTO) 0.7 10^3/uL (0.0-1.0); MONOCYTES % (AUTO) 12.5 %; NEUTROPHILS # (AUTO) 3.8 10^3/uL (1.5-6.6); NEUTROPHILS % (AUTO) 70.4 %; PLT - PLATELET COUNT 305 10^3/uL (130-450); RED BLOOD COUNT 3.48 10^6/uL (4.20-5.40); RED CELL DISTRIBUTION WIDTH 14.5 % (12.0-15.0); WHITE BLOOD COUNT 5.4 x10^3/uL (4.8-10.8)
[2022-07-27 05:36] LABS: ALBUMIN 2.8 g/dL (3.2-5.5); ALBUMIN/GLOBULIN RATIO 0.9 (1.0-2.2); BILIRUBIN,TOTAL 0.4 mg/dL (0.2-1.0); CALCIUM 8.7 mg/dL (8.5-10.3); CREATININE 0.3 mg/dL (0.4-1.0); MAGNESIUM 1.6 mg/dL (1.7-2.8); TOTAL PROTEIN 5.9 g/dL (6.7-8.2)
[2022-07-27] MEDS: methylPREDNISolone SUCCINATE 40 MG/ML VIAL IVP SCH ×2 (07:00→13:15)
[2022-07-27] MEDS ORDERED: POTASSIUM CHLORIDE 10 MEQ CAPSULE PO SCH (09:00)
[2022-07-27] MEDS: LACTULOSE 10 GM /15 ML UDC PO SCH (09:19)
[2022-07-27] MEDS: cefTRIAXone 1 GM in SODIUM CHLORIDE 0.9% MINIBAG 100 ML IV SCH (09:19)
[2022-07-27] MEDS: THIAMINE 100 MG TABLET PO SCH (09:19)
[2022-07-27] MEDS: PRENATAL VITAMIN TABLET PO SCH (09:19)
[2022-07-27] MEDS: guaiFENesin 600 MG TABLET PO SCH ×2 (09:19→20:34)
[2022-07-27] MEDS: amLODIPine 5 MG TABLET PO SCH (09:20)
[2022-07-27] MEDS: LIDOCAINE PATCH 5% TOP SCH (09:20)
--- NOTE | 2022-07-27 11:16 | Ultrasound Report ---
PROCEDURE: Abdomen Complete INDICATIONS: Alcoholic, elev ammonia but normal LFTs TECHNIQUE: Real-time scanning was performed of the abdominal and retroperitoneal organs, with image documentatio n. COMPARISON: CT abdomen and pelvis with, 10/13/2016. FINDINGS: Liver: Liver is normal in size and heterogeneous in echotexture. Gallbladder: Gallbladder is contracted. No gallstones. Gallbladder wall thickness normal. No perichol ecystic fluid collection or sonographic Terry sign. Biliary ducts: Intrahepatic bile ducts are non-dilated. Extrahepatic bile duct caliber measures 5.4 mm. Normal is 6-7 mm or less in diameter, or 10 mm or less post-cholecystectomy. Pancreas: Visualized portions of the pancreas are sonographically normal. Spleen: Spleen is normal in size and homogeneous in echotexture. Kidneys: Kidneys are normal in size and echotexture. Right kidney measures 13.2 cm long; left kidne y measures 11.5 cm long. No hydronephrosis or nephrolithiasis. No solid masses. Aorta: Visualized aorta is normal in caliber at less than 3 cm. Diffuse calcified plaques. Iliacs: Proximal common iliac arteries are normal in caliber at less than 2.5 cm. IVC: Intrahepatic inferior vena cava is patent. Miscellaneous: No free abdominal fluid. IMPRESSION: 1. The liver demonstrates heterogeneous echotexture. No focal hepatic mass. 2. Contracted gallbladder. No gallstones. Reviewed by: Karli Contreras MD on 07/27/2022 11:14 AM PST Approved by: Karli Contreras MD on 07/27/2022 11:14 AM PST Station ID: [id number]
[2022-07-27] MEDS: POTASSIUM CHLORIDE 10 MEQ CAPSULE PO SCH ×2 (11:47→16:55)
[2022-07-27] MEDS: IPRATROPIUM/ALBUTEROL 3 ML NEB INH SCH ×4 (12:06→20:11)
[2022-07-27] MEDS: BUDESONIDE 0.5 MG/2 ML NEB INH SCH ×2 (12:07→20:10)
--- NOTE | 2022-07-27 16:24 | PROVIDER PROGRESS NOTE ---
Assessment/Plan - Problem List (1) Generalized weakness Assessment/Plan: After being somnolent for the first 3 days, she is awake and eating but has refused to walk with PT, wants her Purewick left in, refuses some of her treatments and acts withdrawn. She repeatedly says she just wants to go home. Her son has been at her bedside and prompts her to try to "fight this", get better, get evaluated to see if the lung cancer can be treated. The son reminds her that when she was at home (and lives alone), she fired the caregivers that he arranged for her. Plan: PT and OT have been ordered to evaluate and treat her. PT was only able to work with her by getting her to a chair, she did not want to do more. OT evaluation is still pending. She would be a good candidate for SNF to get rehab for strengthening, if she agrees to participate. I have placed a consult for Palliative Care, at the request of her son Jono (her DPOA), to help the pt and son reconcile their decisions. (2) Anxiety and depression The patient was in rehab herself after a hip fracture in Apr and was on oral Ativan to prevent alcohol withdrawal, when her was transferred into the room with her in the rehab building in [place]. He 1 day later. This was 3 mos ago. 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 Their son Jono, lives in [place] and works there and did not see his father before he . He flew here when he heard about how his mother was doing. For the last 2-3 days she interacts more with people in the room and is eating. She is very apathetic however; she says she does not want to make decisions about the lung mass and when talking about her alcohol abuse she says to me "stop bringing that up". We ordered PT and OT to start>> she has refused them every day. I have also requested Social Work to see the patient for probable reactive depression. The patient refused to have the visit with Medical Practitioners and told Loree "I do not need a social services counselor". Again she said she just wants to go home. Medical Practitioners Loree had the opinion that the patient is depressed and is ready to . Plan: Will order Ativan for anxiety and dose it at hs. (3) Elevated ammonia level (R79.89) Assessment/Plan: After admission she slept for 3 days straight. The son did not think she was withdrawing from meth. We thought she had a metabolic encephalopathy from the Influenza infection, the severe Hyponatremia and from alcohol withdrawal. We found that her ammonia level is very high and this may correlate with when she is the most obtunded. Plan: Continue iv hydration and symptomatic support We found that her ammonia level is very high and this may correlate with when she is the most obtunded. Continue with Lactulose, titrating to loose stools. (4) Alcohol abuse Conclusion/Plan: She did tell me at admission, that she drinks 4 glasses of Zinfindel per day. Since then, her family and son, confirmed heavy alcohol use for decades. 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 Perhaps the alcohol gives her "energy" by disinhibiting her. We ordered CIWA protocol, but she was so sleepy for 3 days that she got no Ativan and no Librium was ever ordered. Her LFTs were normal on admission labs. This could mean mild alcohol use, or she may have a cirrhotic burned out liver. At CT scans the liver was not commented on. I ordered an abdominal ultrasound for work-up of the liver and it shows a he terogenous liver but she has no ascites. We found that her ammonia level is very high and this may correlate with when she is the most obtunded. Plan: She first received 2 days of Banana Bag iv. Now is getting oral MOV and oral Thiamine daily. Continue with Lactulose, titrate to diarrhea. SW consult ordered regarding alcoholism, but to me she says "stop bringing that up". She was too obtunded to discuss her situation with SW, and then since she awoke, we have had no SW in the building (due to holiday schedules). She went social services counselor went to see her for possible depression, she said "I do not need a social services counselor" and refused any further visit. (5) Hyponatremia Conclusion/Plan: We suspected this was hypovolemic hyponatremia from poor oral intake for many days recently. She first had a Na of 108, but signed out AMA, returned home, came back 3 hours later after a family member convinced her to return. At the second ER visit and admission, she started with a serum Na of 117, which has increased slowly and was 130 then dropped to 125, as she awoke and started drinking alot of water, on her bedside table. Since 07/25, free water restriction has been ordered. She can sip on Gatorade, the son was told. With that change, the serum Sodium went from 125 yesterday to 127 to 131 today. Plan: Continue on IV NS, slowly decreasing the rate Continue a free water restriction, but she can have broth or juices, or Gatorade. OK for Gatorade from home was written. Follow serum Na every 12 hours>> now daily (6) Hypokalemia Conclusion/Plan: This is also likely related to her poor oral intake but there is also history of chronic diarrhea, that she confirmed to me at admission, she still has, so she could also have been losing potassium in diarrhea. Plan: Cont to use IV K riders. Continue telemetry. Follow BMP daily (7) Hypomagnesemia Also from poor intake and alcoholism Plan: replace with Mg riders then po (8) COPD with exacerbation Conclusion/Plan: She is a 1.5 PPD smoker. She was on no home meds whatsoever. She was positive for influenza A and had a wet hacking cough, wheezing and hypoxia at admission. CT chest had shown tree-in-bud infection/inflammation. The last CXR done 07/26 shows only COPD with hyperaeration. Plan: Continue suppl O2 if needed to keep sats >88%. If she needs a Nicotine patch for urges, now that she is not so somnolent, will order that. She has been ordered to receive nebulizers of which she refuses about half of them. She takes her Mucinex BID She has been ordered to get incentive spirometry which she completely refuses to use. She will need a walking oximetry test on the day of discharge to see if she needs new home O2. (9) Lung mass Because of her cough in a smoker, and chest x-ray that showed no infiltrates or mass, she underwent a CT of the chest. This was read as having a tree-in bud- inflammation/infection and a spiculated lesion in the right upper lobe and enlarged mediastinal lymph nodes consistent with metastasis. Her lung cancer risk is from her heavy smoking history. I have informed the patient about this finding each day, because she told her f amily that she was not told and remembers no work-up or tests done here. On 07/26 the patient herself brought up the topic of lung cancer and said she "does want it evaluated, does not want to , does not want to leave her son an orphan". Today she says, "I can't decide" or "I just want to go home". The son Jono, her DPOA, came from [place] to help her make decisions and offer support (and he lost his father 2 mos ago). Jono requested that she be transferred to a hospital with higher level of care that has bowstring maker. I said that transfers just for family request are currently at the bottom of larger center's list of importance, because very few beds are open. I have also requested Social Work to see the patient for probable reactive depression. The patient refused to have the visit with Medical Practitioners and told Loree "I do not need a social services counselor". Again she said she just wants to go home. Medical Practitioners Loree had the opinion that the patient is depressed and is ready to . Plan: I have placed a consult for Palliative Care, at the request of her son Jono. Possibly Jono's wishes need to be reconciled with the patient's wishes regarding work-up of the cancer. (10) Influenza infection Resolved. She has had a cough and fatigue and anorexia for 5 days before admission. She was only tested for COVID in the ED at presentation. She had the complete PCR respiratory testing after admission, and it is positive for influenza A. She has finished 10 doses of Tamiflu. Her cough continues but is likely from the smoking and COPD. Her chest x-ray done 07/26/2022 shows no further infiltrates. Her respiratory isolation was discontinued yesterday (11) HTN She initially had high blood pressures which could have been from withdrawal. It has been many days since admission, therefore she is not going through withdrawal and she started running blood pressures as high as 176 systolic Plan: We stopped the CIWA protocol orders We started empiric Norvasc 2.5 mg daily. (12) Freq falls (at home) She could not give me a detailed or prolonged history when I met her, but answered appropriately. Family members told me yesterday that there is a history of 3 falls recently: 1 on 07/19 when she was stepping into a sunken living room in her home and fell backward. Then 2 more falls happened on 07/20, both happened when she was getting out of the nephew's car and she fell backward into the passenger seat, hitting her back of her head on the dashboard. There is a long Hx of falls, which I learned from reading her EMR. These have caused elbow trauma, disruption of elbow hardware, a pelvic fracture and a hip fracture. Due to concern that these recent falls may have caused trauma or intracranial hemorrhage, leading to the new obtundation, STAT CTs were ordered of the head, C-spine, pelvis and lower extremities. The results showed she did not have any acute intracranial abnormality including no brain hemorrhage. C-spine has been cleared. She does have a new L5 compression fracture that is acute, and new since April of this year. Other vertebrae have old compressions. The legs showed no fractures or dislocations, but osteopenia reported. In April 2022, she had a broken hip and underwent hip surgery Plan: We ordered a lidocaine patch over the vertebral area prn, which I changed to scheduled not prn. We ordered PT and OT to evaluate and work with her. She was too obtunded to start with PT her first 3 days, and after that has refused and gives various reasons. (13) Moderate protein calorie malnutrition Conclusion/Plan: Her BMI is 15.8. The family reported her poor oral intake for an unknown duration, possibly for mos. Per our Bookkeeping Clerks Supervisor, she has had nutritional intake of less than 50% of recommended for 1 week. She has muscle wasting in the temporal region and loss of subcutaneous fat in the ocular region. In April 2022, she had a broken hip and underwent hip surgery and while in rehab, her was also admitted to the same rehab facility, same room, and he there, next to her 2 mos ago. 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 I suspect she is depressed Plan: Nutrition consult was ordered to help her increase calories and protein, as we advanced her diet. (14) CAP (community acquired pneumonia) Assessment/Plan: Resolved by CXR done yesterday 07/26/22 The admission Chest x-ray showed no infiltrate, but she was positive for influenza A and had a wet hacking cough. A CT chest was therefore done and "tree-in-bud" changes were reported, consistent with infection. We ordered sputum for culture, but she never gave a sample. She completed a course ofTamiflu. She completed Zithromax and Ceftriaxone - Current Meds Current Meds: Current Medications Generic Name Dose Route Start Last Admin Trade Name Nevaeh PRN Reason Stop Dose Admin Acetaminophen 650 mg 07/21/22 12:03 07/25/22 20:35 Acetaminophen 325 Mg Tablet PO 650 mg Q4HR PRN Administration Pain 1 to 4, or Fever Albuterol/Ipratropium 3 ml 07/23/22 15:00 07/27/22 13:00 Ipratropium/Albuterol 3 Ml Neb INH 3 ml RTQID ALFREDA Administration Amlodipine Besylate 2.5 mg 07/26/22 09:00 07/27/22 09:20 Amlodipine 5 Mg Tablet PO 2.5 mg DAILY ALFREDA Administration Budesonide 0.5 mg 07/23/22 19:00 07/27/22 12:07 Budesonide 0.5 Mg/2 Ml Neb INH Not Given RTBID ALFREDA Guaifenesin 600 mg 07/23/22 21:00 07/27/22 09:19 Guaifenesin 600 Mg Tablet PO 600 mg BID ALFREDA Administration Sodium Chloride 1,000 mls @ 40 mls/hr 07/23/22 14:17 07/27/22 04:26 Normal Saline 0.9% IV 07/27/22 18:00 40 mls/hr .Q25H ALFREDA Administration Ceftriaxone Sodium 1 gm/ 100 mls @ 200 mls/hr 07/24/22 11:00 07/27/22 09:49 Sodium Chloride IV Infused DAILY ALFREDA Infusion Lactulose 10 gm 07/24/22 12:00 07/27/22 09:19 Lactulose 10 Gm /15 Ml Udc PO 10 gm DAILY ALFREDA Administration Lidocaine 1 patch 07/26/22 09:00 07/27/22 09:20 Lidocaine Patch 5% TOP Not Given DAILY ALFREDA Methylprednisolone 40 mg 07/23/22 22:00 07/27/22 13:15 Methylprednisolone Succinate 40 Mg/Ml Vial IVP 40 mg TID ALFREDA Administration Potassium Chloride 20 meq 07/27/22 11:30 07/27/22 11:47 Potassium Chloride 10 Meq Capsule PO 20 meq BIDWM ALFREDA Administration Multivit/Folic Acid/Iron 1 tab 07/24/22 12:00 07/27/22 09:19 Vitamin Tablet PO 1 tab DAILYWM ALFREDA Administration Sodium Chloride 10 ml 07/21/22 12:03 07/24/22 05:42 Sodium Chloride Flush 0.9% 10 Ml Syringe IVP 10 ml PRN PRN Administration NEEDED PER PROVIDER ORDERS Sodium Chloride 10 ml 07/21/22 17:00 07/27/22 09:20 Sodium Chloride Flush 0.9% 10 Ml Syringe IVP Not Given 0100,0900,1700 ALFREDA Thiamine HCl 100 mg 07/24/22 12:00 07/27/22 09:19 Thiamine 100 Mg Tablet PO 100 mg DAILY ALFREDA Administration - Lab Result Fish Bone Diagrams: 07/27/22 05:10 07/27/22 05:10 - Additional Planning My Orders: My Active Orders 07/26/22 17:23 Miscellaenous Nursing Order [RC] QSHIFT 07/26/22 17:24 IS [Incentive Spirometry - RT] [RC] TID Infection Precautions - Discon [RC] .ONCE 07/27/22 Palliative Care Consult [CONS] Routine Social Work Consult [CONS] Routine 07/27/22 08:44 Telemetry-Discontinue [RC] .ONCE 07/27/22 11:30 Potassium Chloride [Micro-K] 20 meq PO BIDWM 07/27/22 21:00 LORazepam [Ativan] 0.5 mg PO QPM 07/28/22 05:00 AMMONIA [CHEM] DAILYLAB CBC - COMP BLD CT W/AUTO DIFF [HEME] DAILYLAB CMP [COMPREHENSIVE METABOLIC PANEL] [CHEM] DAILYLAB MAGNESIUM [CHEM] DAILYLAB 07/29/22 05:00 CBC - COMP BLD CT W/AUTO DIFF [HEME] DAILYLAB MAGNESIUM [CHEM] DAILYLAB 07/30/22 05:00 MAGNESIUM [CHEM] DAILYLAB Subjective - Subjective Patient Reports: Other (Is withdrawn, rolls her eyes when social work tried to speak with her, refuses to walk with PT but did take several steps to get in the chair for meals, wants her pure-wick left in so that she does not have to walk to the commode to urinate.) Objective Vital Signs: Vital Signs - 24 hr 07/26/22 07/26/22 07/26/22 17:59 18:01 21:00 Temperature 36.4 C L Heart Rate 78 Heart Rate [ Brachial] Heart Rate [ 99 Monitoring electrodes] Respiratory 17 20 Rate Blood Pressure [Left Brachial artery] Blood Pressure 179/83 H [Right Brachial artery] O2 Saturation 96 If not protocol 3 3 3 : Oxygen Flow, liters/minute 07/27/22 07/27/22 07/27/22 01:00 05:00 08:10 Temperature 36.4 C L 36.3 C L 36.7 C Heart Rate Heart Rate [ 78 78 83 Brachial] Heart Rate [ Monitoring electrodes] Respiratory 19 18 16 Rate Blood Pressure 171/78 H [Left Brachial artery] Blood Pressure 173/94 H 158/85 H [Right Brachial artery] O2 Saturation 97 97 96 If not protocol 3 3 3 : Oxygen Flow, liters/minute 07/27/22 07/27/22 07/27/22 09:00 12:31 13:01 Temperature 36.3 C L Heart Rate 84 Heart Rate [ 80 Brachial] Heart Rate [ Monitoring electrodes] Respiratory 18 18 Rate Blood Pressure [Left Brachial artery] Blood Pressure 163/75 H [Right Brachial artery] O2 Saturation 92 97 If not protocol 3 2 : Oxygen Flow, liters/minute 07/27/22 07/27/22 13:17 16:03 Temperature 36.8 C Heart Rate Heart Rate [ 99 88 Brachial] Heart Rate [ Monitoring electrodes] Respiratory 22 16 Rate Blood Pressure [Left Brachial artery] Blood Pressure 133/74 H [Right Brachial artery] O2 Saturation 96 92 If not protocol : Oxygen Flow, liters/minute Oxygen O2 Source Room air Oxygen Flow Rate 2 I&O (Last 24 Hrs): Intake and Output Totals x24h 07/25/22 07/26/22 07/27/22 23:59 23:59 23:59 Intake Total 2884 2245 940 Output Total 950 1025 Balance 1934 2245 85 General: Alert, Oriented x3, Other (Cachectic) HEENT: Mucous membr. moist/pink, Other (No nystagmus or icterus) Neuro: Alert, Non Focal Cardiovascular: Regular rate, No murmurs Respiratory: No respiratory distress, Breath sounds nml (Poor air movement) Abdomen: Normal bowel sounds, Soft, No tenderness Extremities: No clubbing, No edema, No tenderness/swelling - Results Results: Laboratory Results WBC 5.4 x10^3/uL (4.8-10.8) 07/27/22 05:10 RBC 3.48 10^6/uL (4.20-5.40) L 07/27/22 05:10 Hgb 11.3 g/dL (12.0-16.0) L 07/27/22 05:10 Hct 33.7 % (37.0-47.0) L 07/27/22 05:10 MCV 96.8 fL (81.0-99.0) 07/27/22 05:10 MCH 32.5 pg (27.0-31.0) H 07/27/22 05:10 MCHC 33.5 g/dL (32.0-36.0) 07/27/22 05:10 RDW 14.5 % (12.0-15.0) 07/27/22 05:10 Plt Count 305 10^3/uL (130-450) 07/27/22 05:10 MPV 8.1 fL (7.9-10.8) 07/27/22 05:10 Neut # (Auto) 3.8 10^3/uL (1.5-6.6) 07/27/22 05:10 Lymph # (Auto) 0.9 10^3/uL (1.5-3.5) L 07/27/22 05:10 Baxter # (Auto) 0.7 10^3/uL (0.0-1.0) 07/27/22 05:10 Eos # (Auto) 0.0 10^3/uL (0.0-0.7) 07/27/22 05:10 Baso # (Auto) 0.0 10^3/uL (0.0-0.1) 07/27/22 05:10 Absolute Nucleated RBC 0.00 x10^3/uL 07/27/22 05:10 Total Counted 100 07/26/22 05:05 Band Neuts % (Manual) 0 % (0-10) 07/26/22 05:05 Abnorm Lymph % (Manual) 0 % 07/26/22 05:05 Nucleated RBC % 0.0 /100WBC 07/27/22 05:10 Neutrophils # (Manual) 3.3 10^3/uL (1.5-6.6) 07/26/22 05:05 Lymphocytes # (Manual) 1.1 10^3/uL (1.5-3.5) L 07/26/22 05:05 Monocytes # (Manual) 0.6 10^3/uL (0.0-1.0) 07/26/22 05:05 Eosinophils # (Manual) 0.0 10^3/uL (0-0.7) 07/26/22 05:05 Basophils # (Manual) 0.0 10^3/uL (0-0.1) 07/26/22 05:05 Differential Comment MANUAL DIFFERENTIAL 07/26/22 05:05 WBC Morphology NORMAL APPEARANCE (NORMAL) 07/23/22 04:20 Platelet Estimate NORMAL (130-450,000) (NORMAL) 07/26/22 05:05 Platelet Morphology NORMAL APPEARANCE (NORMAL) 07/23/22 04:20 RBC Morph Micro Appear NORMAL APPEARANCE (NORMAL) 07/26/22 05:05 PT 10.4 secs (9.9-12.6) 07/21/22 12:44 INR 0.9 (0.8-1.2) 07/21/22 12:44 Sodium 131 mmol/L (135-145) L 07/27/22 05:10 Potassium 3.0 mmol/L (3.5-5.0) L 07/27/22 05:10 Chloride 92 mmol/L (101-111) L 07/27/22 05:10 Carbon Dioxide 29 mmol/L (21-32) 07/27/22 05:10 Anion Gap 10.0 (6-13) 07/27/22 05:10 BUN 6 mg/dL (6-20) 07/27/22 05:10 Creatinine 0.3 mg/dL (0.4-1.0) L 07/27/22 05:10 Estimated GFR (MDRD) 226 (>89) 07/27/22 05:10 Glucose 126 mg/dL (70-100) H 07/27/22 05:10 Calcium 8.7 mg/dL (8.5-10.3) 07/27/22 05:10 Phosphorus 3.9 mg/dL (2.5-4.6) 07/27/22 05:10 Magnesium 1.6 mg/dL (1.7-2.8) L 07/27/22 05:10 Total Bilirubin 0.4 mg/dL (0.2-1.0) 07/27/22 05:10 Direct Bilirubin 0.1 mg/dL (0.1-0.5) 07/24/22 05:00 AST 15 IU/L (10-42) 07/27/22 05:10 ALT 18 IU/L (10-60) 07/27/22 05:10 Alkaline Phosphatase 63 IU/L (42-121) 07/27/22 05:10 Ammonia 52.3 umol/L (7-35) H 07/27/22 05:10 Total Protein 5.9 g/dL (6.7-8.2) L 07/27/22 05:10 Albumin 2.8 g/dL (3.2-5.5) L 07/27/22 05:10 Globulin 3.1 g/dL (2.1-4.2) 07/27/22 05:10 Albumin/Globulin Ratio 0.9 (1.0-2.2) L 07/27/22 05:10 TSH 0.48 uIU/mL (0.34-5.60) 07/20/22 12:04 Free T4 1.36 ng/dL (0.58-1.64) 07/20/22 12:04 Nasal Adenovirus (PCR) NOT DETECTED 07/21/22 18:05 Nasal B. parapertussis DNA (PCR) NOT DETECTED 07/21/22 18:05 Nasal Coronavir 229E PCR NOT DETECTED 07/21/22 18:05 Nasal Coronavir HKU1 PCR NOT DETECTED 07/21/22 18:05 Nasal Coronavir NL63 PCR NOT DETECTED 07/21/22 18:05 Nasal Coronavir OC43 PCR NOT DETECTED 07/21/22 18:05 Nasal Enterovir/Rhinovir PCR NOT DETECTED 07/21/22 18:05 Nasal Influenza A H3 PCR DETECTED A 07/21/22 18:05 Nasal Influenza B PCR NOT DETECTED 07/21/22 18:05 Nasal Parainfluen 1 PCR NOT DETECTED 07/21/22 18:05 Nasal Parainfluen 2 PCR NOT DETECTED 07/21/22 18:05 Nasal Parainfluen 3 PCR NOT DETECTED 07/21/22 18:05 Nasal Parainfluen 4 PCR NOT DETECTED 07/21/22 18:05 Nasal RSV (PCR) NOT DETECTED 07/21/22 18:05 Nasal B.pertussis DNA PCR NOT DETECTED 07/21/22 18:05 Nasal C.pneumoniae (PCR) NOT DETECTED 07/21/22 18:05 Jerry Human Metapneumo PCR NOT DETECTED 07/21/22 18:05 Nasal M.pneumoniae (PCR) NOT DETECTED 07/21/22 18:05 Nasal SARS-CoV-2 (PCR) NOT DETECTED 07/21/22 18:05 SARS-CoV-2 (PCR) NOT DETECTED 07/20/22 22:07 - Procedures Procedures: Procedures EXCISION OF DUODENUM, ENDO, DIAGN (04/15/16) EXCISION OF ESOPHAGUS, ENDO, DIAGN (04/15/16) EXCISION OF LARGE INTESTINE, ENDO, DIAGN (04/15/16) EXCISION OF STOMACH, ENDO, DIAGN (04/15/16) REMOVAL OF INT FIX FROM L ULNA, OPEN APPROACH (09/06/19) REPOSITION LEFT ULNA WITH INT FIX, OPEN APPROACH (09/06/19)
[2022-07-27] MEDS: LORazepam 0.5 MG TABLET PO SCH (20:34)
[2022-07-28] MEDS: SODIUM CHLORIDE FLUSH 0.9% 10 ML SYRINGE IVP SCH ×4 (04:37→23:56)
[2022-07-28] MEDS: ACETAMINOPHEN 325 MG TABLET PO PRN (05:09)
[2022-07-28] MEDS: IPRATROPIUM/ALBUTEROL 3 ML NEB INH SCH ×3 (05:54→18:06)
[2022-07-28] MEDS: BUDESONIDE 0.5 MG/2 ML NEB INH SCH ×2 (05:54→20:05)
[2022-07-28 05:57] LABS: BASOPHILS % (AUTO) 0.2 %; HCT - HEMATOCRIT 38.2 % (37.0-47.0); HGB - HEMOGLOBIN 12.7 g/dL (12.0-16.0); LYMPHOCYTES # (AUTO) 2.6 10^3/uL (1.5-3.5); LYMPHOCYTES % (AUTO) 23.3 %; MEAN CORPUSCULAR HEMOGLOBIN 32.7 pg (27.0-31.0); MEAN CORPUSCULAR HGB CONC 33.2 g/dL (32.0-36.0); MEAN CORPUSCULAR VOLUME 98.5 fL (81.0-99.0); MEAN PLATELET VOLUME 8.4 fL (7.9-10.8); MONOCYTES # (AUTO) 1.4 10^3/uL (0.0-1.0); MONOCYTES % (AUTO) 12.1 %; NEUTROPHILS # (AUTO) 7.1 10^3/uL (1.5-6.6); NEUTROPHILS % (AUTO) 63.3 %; PLT - PLATELET COUNT 353 10^3/uL (130-450); RED BLOOD COUNT 3.88 10^6/uL (4.20-5.40); RED CELL DISTRIBUTION WIDTH 14.8 % (12.0-15.0); WHITE BLOOD COUNT 11.2 x10^3/uL (4.8-10.8)
[2022-07-28 06:04] LABS: CREATININE 0.4 mg/dL (0.4-1.0); MAGNESIUM 1.5 mg/dL (1.7-2.8); POTASSIUM 3.1 mmol/L (3.5-5.0)
[2022-07-28] MEDS: LACTULOSE 10 GM /15 ML UDC PO SCH (08:10)
[2022-07-28] MEDS: POTASSIUM CHLORIDE 10 MEQ CAPSULE PO SCH ×2 (08:11→16:42)
[2022-07-28] MEDS: amLODIPine 5 MG TABLET PO SCH (08:11)
[2022-07-28] MEDS: THIAMINE 100 MG TABLET PO SCH (08:11)
[2022-07-28] MEDS: guaiFENesin 600 MG TABLET PO SCH ×2 (08:11→20:59)
[2022-07-28] MEDS: LIDOCAINE PATCH 5% TOP SCH (08:12)
[2022-07-28] MEDS: PRENATAL VITAMIN TABLET PO SCH (08:37)
[2022-07-28] MEDS ORDERED: methylPREDNISolone SUCCINATE 40 MG/ML VIAL IVP ONE (09:00)
[2022-07-28] MEDS ORDERED: POTASSIUM CHLORIDE 20 MEQ TABLET PO ONE (11:26)
[2022-07-28] MEDS: MAGNESIUM OXIDE 400 MG TABLET PO SCH ×2 (13:55→20:59)
--- NOTE | 2022-07-28 18:30 | PROVIDER PROGRESS NOTE ---
Subjective - Subjective Pt reports feeling: Improved Subjective: 62-year-old female w/alcohol dependence, tobacco dependence and recent falls resulting in left elbow fx and lumbar compression fx who was admitted w/hyponatremia. She had been seen in the ED 07/19 after not eating/drinking much over the past month. Her son notes that after her fall and surgical fx repair, she went to [facility] where she remained for a short time before signing herself out. She went home w/plan for caregiving w/Home instead. Son notes that pt got mad at him and fired the caregivers. She was sending text messages to him about being ready to . He notes this was all around June 25. She came to the ED on 07/19. Admission was recommended but she declined. Subsequently family had a welfare check done 07/20 and she once again declined. She ultimately came in and was admitted the same day. Reportedly, she was quite encephalopathic the first 3 days in hospital, but since she is more awake, she has been declining most cares. She has been adamant about discharging home when she leaves here. On admit, she was noted to have wet cough. Imaging was done which revealed a RUL nodule and concerning mediastinal lymphadenopathy. Palliative care consult was requested yesterday d/t pt's general refusal of care. Today, she states she wants to transfer to [place] for a work-up of her lung mass. Multiple family members/friends present at bedside. Objective - Vital Signs/Intake & Output Reviewed Vital Signs: Yes Vital Signs: Vital Signs x48h Temp Pulse Resp BP Pulse Ox 07/28/22 16:09 36.2 C L 98 20 129/80 90 L Intake & Output: Intake & Output 07/25/22 07/26/22 07/27/22 07/28/22 23:59 23:59 23:59 23:59 Intake Total 2884 2245 2212.667 240 Output Total 950 1225 1900 Balance 1934 2245 987.065 -1660 - Objective General Appearance: positive: No acute distress, Alert Eyes Bilateral: positive: Normal inspection Respiratory: positive: No respiratory distress, Breath sounds nml Cardiovascular: positive: Regular rate & rhythm, No murmur, No gallop Abdomen: positive: Non-tender, No organomegaly, Nml bowel sounds, No distention Skin: positive: Color nml, No rash, Warm, Dry Extremities: positive: Non-tender, No pedal edema Neurologic/Psychiatric: positive: Oriented x3 - Lab Results Fish Bones: 07/28/22 05:37 07/28/22 05:37 Other Labs: Lab Results x24hrs 07/28/22 07/28/22 07/28/22 Range/Units 05:37 05:37 05:37 WBC 11.2 H (4.8-10.8) x10^3/uL RBC 3.88 L (4.20-5.40) 10^6/uL Hgb 12.7 (12.0-16.0) g/dL Hct 38.2 (37.0-47.0) % MCV 98.5 (81.0-99.0) fL MCH 32.7 H (27.0-31.0) pg MCHC 33.2 (32.0-36.0) g/dL RDW 14.8 (12.0-15.0) % Plt Count 353 (130-450) 10^3/uL MPV 8.4 (7.9-10.8) fL Neut # (Auto) 7.1 H (1.5-6.6) 10^3/uL Lymph # (Auto) 2.6 (1.5-3.5) 10^3/uL [place] # (Auto) 1.4 H (0.0-1.0) 10^3/uL Eos # (Auto) 0.0 (0.0-0.7) 10^3/uL Baso # (Auto) 0.0 (0.0-0.1) 10^3/uL Absolute Nucleated RBC 0.00 x10^3/uL Nucleated RBC % 0.0 /100WBC Sodium 130 L (135-145) mmol/L Potassium 3.1 L (3.5-5.0) mmol/L Chloride 91 L (101-111) mmol/L Carbon Dioxide 27 (21-32) mmol/L Anion Gap 12.0 (6-13) BUN 8 (6-20) mg/dL Creatinine 0.4 (0.4-1.0) mg/dL Estimated GFR (MDRD) 162 (>89) Glucose 109 H (70-100) mg/dL Calcium 9.0 (8.5-10.3) mg/dL Magnesium 1.5 L (1.7-2.8) mg/dL Ammonia 27.0 (7-35) umol/L Assessment/Plan - Problem List (1) Hyponatremia Impression: Sodium was 108 on admission. Now up to 130. Her cognition has improved overall. Will recheck labs in am for stability. (2) Lung mass Impression: Long conversation w/pt, son, and other friends/family members w/patient's permission. Explained that a work up for a lung mass would not warrant transfer to another acute care hospital. Explained CT guided biopsy likely could be done here. [place] CT[place] but [place] an [place] through [place] [facility]. She expressed the desire to pursue a predominantly outpatient work-up. Her son and friends express concern that pt may fail to follow through with work-up. Son would at least like his mom to explore her options. At this point, she says she wants to proceed w/diagnosis. Given concerning mediastinal lymphadenopathy, she likely has metastatic disease. (3) Acute metabolic encephalopathy Impression: Likely multifactorial from hyponatremia and hyperammonemia. She is improving, but does seem to vacillate w/her decision making. When I first came into the room, she was adamant about going home. After further discussion, she says she is recepive to go to SNF short-term for rehab. IT will be helpful for Social work to revisit w/her tomorrow to confirm her goals/plan. (4) Alcohol dependence Impression: Pt says she is not going to drink after d/c. Discussed that her imaging and LFTs were reassuring. She will need to stay on lactulose for now to avoid recurrent hepatic encephalopathy. Advised that if she avoids hepatotoxins, her liver function will likely improve and she will be able to dc lactulose. (5) Hypokalemia Impression: Continue repleting. Likely worsened by diarrhea from lactulose. She is also hypomagnesemic. This will be repleted as well. (6) Generalized weakness Impression: Will benefit from SNF for PT/OT. She is presently reporting she is willing to consider SNF. (8) Mechanical deep vein thrombosis (DVT) prophylaxis in place Impression: Start Lovenox. (9) Psychosocial problem Impression: Pt's son is here from [place] to help w/dispo arrangements. He is frustrated and fairly confrontational w/pt. She seems to shut down and stops engaging w/him. Unfortunately, this appears to be a longsanding power struggle w/them. Encouraged other friends who were present in the room to visit again tomorrow and encourage her to move [place] as she won't be able to arrange 24 hour caregiving at home. Son lives in [place] and will need to return soon. It is clear they have a longstanding challenging relationship related to her alcohol dependence and difficulty following through w/medical recommendations.
[2022-07-28] MEDS: LORazepam 0.5 MG TABLET PO SCH (20:59)
[2022-07-29 05:40] LABS: BASOPHILS % (AUTO) 0.1 %; EOSINOPHILS % (AUTO) 0.1 %; HCT - HEMATOCRIT 36.2 % (37.0-47.0); LYMPHOCYTES # (AUTO) 2.2 10^3/uL (1.5-3.5); LYMPHOCYTES % (AUTO) 26.4 %; MEAN CORPUSCULAR HEMOGLOBIN 32.5 pg (27.0-31.0); MEAN CORPUSCULAR HGB CONC 33.1 g/dL (32.0-36.0); MEAN CORPUSCULAR VOLUME 98.1 fL (81.0-99.0); MEAN PLATELET VOLUME 8.2 fL (7.9-10.8); MONOCYTES # (AUTO) 1.1 10^3/uL (0.0-1.0); MONOCYTES % (AUTO) 13.5 %; NEUTROPHILS # (AUTO) 4.9 10^3/uL (1.5-6.6); NEUTROPHILS % (AUTO) 59.2 %; PLT - PLATELET COUNT 338 10^3/uL (130-450); RED BLOOD COUNT 3.69 10^6/uL (4.20-5.40); WHITE BLOOD COUNT 8.3 x10^3/uL (4.8-10.8)
[2022-07-29] MEDS: IPRATROPIUM/ALBUTEROL 3 ML NEB INH SCH ×4 (05:47→16:31)
[2022-07-29] MEDS: BUDESONIDE 0.5 MG/2 ML NEB INH SCH ×3 (05:47→16:31)
[2022-07-29 05:55] LABS: ALBUMIN 3.1 g/dL (3.2-5.5); CALCIUM 9.4 mg/dL (8.5-10.3); CREATININE 0.3 mg/dL (0.4-1.0); MAGNESIUM 1.6 mg/dL (1.7-2.8); PHOSPHORUS 3.6 mg/dL (2.5-4.6); POTASSIUM 4.3 mmol/L (3.5-5.0)
[2022-07-29] MEDS: guaiFENesin 600 MG TABLET PO SCH ×2 (08:06→21:22)
[2022-07-29] MEDS: MAGNESIUM OXIDE 400 MG TABLET PO SCH ×2 (08:06→21:22)
[2022-07-29] MEDS: amLODIPine 5 MG TABLET PO SCH (08:06)
[2022-07-29] MEDS: PRENATAL VITAMIN TABLET PO SCH (08:06)
[2022-07-29] MEDS: THIAMINE 100 MG TABLET PO SCH (08:06)
[2022-07-29] MEDS: POTASSIUM CHLORIDE 10 MEQ CAPSULE PO SCH ×2 (08:07→17:07)
[2022-07-29] MEDS: LACTULOSE 10 GM /15 ML UDC PO SCH (08:13)
[2022-07-29] MEDS: LIDOCAINE PATCH 5% TOP SCH (08:15)
[2022-07-29] MEDS: SODIUM CHLORIDE FLUSH 0.9% 10 ML SYRINGE IVP SCH ×2 (08:26→17:08)
[2022-07-29] MEDS ORDERED: ENOXAPARIN 40 MG/0.4 ML SYRINGE SUBQ SCH (09:00)
--- NOTE | 2022-07-29 15:39 | PROVIDER PROGRESS NOTE ---
<Katerine Harper - Last Filed: 07/30/22 15:49> Subjective - Prog Note Date Prog Note Date: 07/29/22 Prog Note Time: 18:19 - Subjective Pt reports feeling: Improved (She denies headache, nausea, vomiting, dizziness, confusion, or muscle cramps. She is positive for fatigue.) Subjective: 62 year old female presents with alcohol dependence, tobacco dependence, and recent falls resulting in left elbow fracture and lumbar compression. She was admitted for hyponatremia. She was seen in the ED 07/19 after not eating much over the last month. She indicates that she is ready to be discharged and wants to start physical therapy so she can get stronger. She acknowledges understanding and agrees to no longer drink alcohol in order to improve her liver function and overall health. She says she will do what is needed to get well. Her son was emotional in the room and her [id number] wanted to make sure she heard what the doctor was recommending. She wants to begin treatment for her lung mass as soon as she can following physical therapy. Objective - Vital Signs/Intake & Output Vital Signs: Vital Signs x48h Temp Pulse Pulse Resp BP Pulse Ox O2 Flow Rate 07/29/22 13:00 36.6 C 92 19 107/72 92 1 07/29/22 08:00 36.5 C 96 89 16 115/69 95 Intake & Output: Intake & Output 07/26/22 07/27/22 07/28/22 07/29/22 23:59 23:59 23:59 23:59 Intake Total 2245 2212.667 540 270 Output Total 1225 2300 600 Balance 2245 987.667 -1760 -330 - Objective General Appearance: positive: No acute distress, Alert Eyes Bilateral: positive: Normal inspection ENT: positive: No signs of dehydration Neck: positive: Nml inspection Respiratory: positive: Chest non-tender, No respiratory distress, Breath sounds nml Cardiovascular: positive: Regular rate & rhythm, No murmur, No gallop Peripheral Pulses: 2+ Radial (R), 2+ Radial (L) Abdomen: positive: Non-tender, No organomegaly, Nml bowel sounds Skin: positive: Color nml Extremities: positive: Non-tender, Full ROM, Nml appearance Neurologic/Psychiatric: positive: Oriented x3, Motor nml, Sensation nml, Mood/affect nml - Lab Results Fish Bones: 07/29/22 05:33 07/29/22 05:33 Other Labs: Lab Results x24hrs 07/29/22 07/29/22 07/28/22 Range/Units 05:33 05:33 22:15 WBC 8.3 (4.8-10.8) x10^3/uL RBC 3.69 L (4.20-5.40) 10^6/uL Hgb 12.0 (12.0-16.0) g/dL Hct 36.2 L (37.0-47.0) % MCV 98.1 (81.0-99.0) fL MCH 32.5 H (27.0-31.0) pg MCHC 33.1 (32.0-36.0) g/dL RDW 15.0 (12.0-15.0) % Plt Count 338 (130-450) 10^3/uL MPV 8.2 (7.9-10.8) fL Neut # (Auto) 4.9 (1.5-6.6) 10^3/uL Lymph # (Auto) 2.2 (1.5-3.5) 10^3/uL [place] # (Auto) 1.1 H (0.0-1.0) 10^3/uL Eos # (Auto) 0.0 (0.0-0.7) 10^3/uL Baso # (Auto) 0.0 (0.0-0.1) 10^3/uL Absolute Nucleated RBC 0.00 x10^3/uL Nucleated RBC % 0.0 /100WBC Sodium 131 L (135-145) mmol/L Potassium 4.3 (3.5-5.0) mmol/L Chloride 95 L (101-111) mmol/L Carbon Dioxide 27 (21-32) mmol/L Anion Gap 9.0 (6-13) BUN 10 (6-20) mg/dL Creatinine 0.3 L (0.4-1.0) mg/dL Estimated GFR (MDRD) 226 (>89) Glucose 87 (70-100) mg/dL Calcium 9.4 (8.5-10.3) mg/dL Phosphorus 3.6 (2.5-4.6) mg/dL Magnesium 1.6 L (1.7-2.8) mg/dL Albumin 3.1 L (3.2-5.5) g/dL Stl C. diff Tox B Gene NEGATIVE (NEGATIVE) Assessment/Plan - Problem List (1) Hyponatremia Impression: Sodium was 108 on admission. Now up to 131. Her cognition is improved. She is stable. (2) Lung mass Impression: Conversation with patients family with patients permission. Explained that work- up for a lung mass is done outpatient. Patient most likely has metastatic dis ease due to mediastinal lymphadenopathy. (3) Generalized weakness Impression: Improving. Will benefit from PT/OT, which she reports she is willing to consider. (4) Alcohol dependence Impression: Patient says she will not drink alcohol after discharge. Discussed that her imaging and LFTs are reassuring. Discussed with her to stay on lactulose for now to avoid hepatic encephalopathy. Advised that if she avoids hepatoxins that her liver function should improve and she can discontinue lactulose use. <Ayaka Terrell L - Last Filed: 07/30/22 19:50> Objective - Vital Signs/Intake & Output Vital Signs: Vital Signs x48h Temp Pulse Pulse Resp BP BP Pulse Ox 07/30/22 16:45 95 16 07/30/22 16:12 37.1 C 110 H 24 94/63 92 07/30/22 13:00 36.4 C L 99 18 100/70 97 07/30/22 12:00 93 Intake & Output: Intake & Output 07/27/22 07/28/22 07/29/22 07/30/22 23:59 23:59 23:59 23:59 Intake Total 2212.667 922 731 1728 Output Total 1225 2300 1250 900 Balance 987.667 -1760 -544 272 - Lab Results Fish Bones: 07/29/22 05:33 07/29/22 05:33 Other Labs: Lab Results x24hrs 07/30/22 Range/Units 05:50 Magnesium 1.8 (1.7-2.8) mg/dL
[2022-07-29] MEDS: LORazepam 0.5 MG TABLET PO SCH (21:22)
[2022-07-29] MEDS: ACETAMINOPHEN 325 MG TABLET PO PRN (22:01)
[2022-07-30] MEDS: SODIUM CHLORIDE FLUSH 0.9% 10 ML SYRINGE IVP SCH ×3 (00:26→17:27)
[2022-07-30] MEDS: IPRATROPIUM/ALBUTEROL 3 ML NEB INH SCH ×4 (07:06→16:44)
[2022-07-30] MEDS: BUDESONIDE 0.5 MG/2 ML NEB INH SCH ×2 (07:06→16:44)
[2022-07-30] MEDS: POTASSIUM CHLORIDE 10 MEQ CAPSULE PO SCH ×2 (09:39→17:27)
[2022-07-30] MEDS: THIAMINE 100 MG TABLET PO SCH (09:39)
[2022-07-30] MEDS: PRENATAL VITAMIN TABLET PO SCH (09:39)
[2022-07-30] MEDS: MAGNESIUM OXIDE 400 MG TABLET PO SCH ×2 (09:39→20:49)
[2022-07-30] MEDS: LACTULOSE 10 GM /15 ML UDC PO SCH (09:40)
[2022-07-30] MEDS: guaiFENesin 600 MG TABLET PO SCH ×2 (09:40→20:49)
[2022-07-30] MEDS: LIDOCAINE PATCH 5% TOP SCH (09:41)
[2022-07-30] MEDS: amLODIPine 5 MG TABLET PO SCH (09:51)
--- NOTE | 2022-07-30 13:36 | PROVIDER PROGRESS NOTE ---
Subjective - Prog Note Date Prog Note Date: 07/30/22 Prog Note Time: 13:33 - Subjective Pt reports feeling: No change Subjective: 62 year old female with alcohol dependence, tobacco dependence and recent fall resulting in left elbow fracture and lumbar compression who was admitted for hyponatremia. She was seen in the ED 07/19 after not eating much over the last month. Objective - Vital Signs/Intake & Output Vital Signs: Vital Signs x48h Temp Pulse Pulse Resp BP Pulse Ox O2 Flow Rate 07/30/22 12:00 93 07/30/22 09:43 91/62 07/30/22 08:00 36.5 C 98 18 107/73 97 1 07/30/22 07:06 95 14 2 Intake & Output: Intake & Output 07/27/22 07/28/22 07/29/22 07/30/22 23:59 23:59 23:59 23:59 Intake Total 2212.667 540 706 707 Output Total 1225 2300 1250 450 Balance 987.667 -1760 -544 257 - Objective General Appearance: positive: No acute distress - Lab Results Fish Bones: 07/29/22 05:33 07/29/22 05:33 Other Labs: Lab Results x24hrs 07/30/22 Range/Units 05:50 Magnesium 1.8 (1.7-2.8) mg/dL Assessment/Plan - Problem List (1) Hyponatremia Impression: Sodium is 131. Patient cognition is good and she is stable. Discontinued free water restriction. (2) Lung mass Impression: Patient is scheduled for a lung biopsy tomorrow (3) Generalized weakness Impression: Recommend the patient go to a SNF following discharge for rehabilitation, most likely at [facility].
[2022-07-30] MEDS: LORazepam 0.5 MG TABLET PO SCH (20:49)
[2022-07-30] MEDS: ACETAMINOPHEN 325 MG TABLET PO PRN (20:49)
[2022-07-31] MEDS: SODIUM CHLORIDE FLUSH 0.9% 10 ML SYRINGE IVP SCH ×3 (00:31→17:49)
[2022-07-31 05:32] LABS: PT - PROTHROMBIN TIME 10.9 secs (9.9-12.6)
[2022-07-31] MEDS: IPRATROPIUM/ALBUTEROL 3 ML NEB INH SCH ×4 (07:35→21:44)
[2022-07-31] MEDS: BUDESONIDE 0.5 MG/2 ML NEB INH SCH ×2 (07:35→21:44)
[2022-07-31] MEDS ORDERED: LIDOCAINE-MPF 1% 5 ML VIAL ONE (08:21)
[2022-07-31] MEDS ORDERED: fentaNYL 100 MCG/2 ML VIAL ONE (08:25)
[2022-07-31] MEDS ORDERED: MIDAZOLAM 2 MG/2 ML VIAL ONE (08:25)
[2022-07-31] MEDS: amLODIPine 5 MG TABLET PO SCH (10:27)
[2022-07-31] MEDS: THIAMINE 100 MG TABLET PO SCH (10:27)
[2022-07-31] MEDS: guaiFENesin 600 MG TABLET PO SCH ×2 (10:27→21:02)
[2022-07-31] MEDS: POTASSIUM CHLORIDE 10 MEQ CAPSULE PO SCH ×2 (10:27→17:49)
[2022-07-31] MEDS ORDERED: LACTATED RINGERS 1,000 ML IV ONE (10:28)
[2022-07-31] MEDS: PRENATAL VITAMIN TABLET PO SCH (10:28)
[2022-07-31] MEDS: LIDOCAINE PATCH 5% TOP SCH (10:28)
[2022-07-31] MEDS: LACTULOSE 10 GM /15 ML UDC PO SCH (10:28)
--- NOTE | 2022-07-31 10:30 | CT Report ---
PROCEDURE: CHEST WO INDICATIONS: LUNG NODULE TECHNIQUE: Noncontrast 1mm axial images were acquired from the pulmonary apices to the posterior costophrenic an gles. Axial 5 mm soft tissue kernel reconstructions were performed as well as 8 mm axial MIP and cor onal and sagittal 5 mm reformations. For radiation dose reduction, the following was used: automate d exposure control, adjustment of mA and/or kV according to patient size. COMPARISON: CT chest 07/22/2022. FINDINGS: Image quality: Good. Lungs and pleura: Moderate to severe centrilobular emphysema. Right upper lobe spiculated pulmonary nodule measuring 1.5 cm, (4/86), unchanged in the short-term in terval. There is mild cavitation. Right upper lobe spiculated pulmonary nodule measuring 0.8 cm, (4/85), new in the short-term interval compared to 07/22/2022. There is mild cavitation. Right upper lobe mild tree-in-bud nodular opacity, (4/111), slightly increased. The majority of the patchy opacity at the lower lobes is resolved. There are a few areas of residual nodular opacity. For example in the left lower lobe 4/177), unchanged. There is a distal mucus airway plugging which is slightly increased. There are trace secretions in th e left mainstem bronchus. Pleural apical scarring. No pneumothorax. No pleural effusion. Mediastinum: Heart size is normal. Severe three-vessel coronary artery calcifications. No pericardia l effusion. Precarinal node with a short axis diameter of 1 cm, (3/24), previously 1.3 cm. Thoracic a sharon and central pulmonary arteries are normal in size. Moderate calcified plaque of the aortic arch. Esophagus is normal in caliber. No hiatal hernia. Bones and chest wall: Mild height loss at T4. Schmorl's nodes at T12 and L1. Heterogeneous sclerosis at L1 and L2 partially visualized, not seen in 2017. However, this could be degenerative in nature. Punctate sclerotic foci in the ribs. No axillary or supraclavicular adenopathy by size criteria. The thyroid is normal in size and there are no incidental findings. Abdomen: Visualized upper abdominal solid organs and bowel loops appear normal in the absence of con trast. IMPRESSION: 1. New right upper lobe spiculated pulmonary nodule measuring 0.8 cm. This nodule has a similar appea shravan to the other right upper lobe nodule. Given the appearance of this nodule in the short-term int erval suspicious for infectious/inflammatory etiology is increased although malignancy is not exclude d. Recommend short-term follow-up CT chest in 1-3 months. 2. Right upper lobe spiculated pulmonary nodule measuring 1.5 cm with mild cavitation is unchanged in the short-term interval. This could be due to infectious/inflammatory etiology or malignancy. CT-guided lung biopsy was postponed at this time due to the appearance of the new similar opacity in the short-term interval which increases suspicion for infection. Patient also has a cough and advanced emphysematous change which increases risk for pneumothorax. Rec ommend a short-term follow-up chest CT in 1-3 months. PET/CT would also be helpful for further evalua tion if clinically indicated. 3. Prominent mediastinal lymph node measuring 1 cm short axis diameter is slightly decreased. This is indeterminant and recommend attention on follow-up CT scans. 4. The majority of the lower lobe airspace opacity is improved consistent with infectious/inflammator y etiology. Persistent distal mucus airway plugging and bronchial secretions. These findings could be due to bronchitis. Results were communicated to Dr. Terrell at 07/31/2022 10:00 AM PST. The findings were also reviewed wit h the patient and the patient's brother and son. Reviewed by: Phillip Lopez MD on 07/31/2022 10:28 AM PST Approved by: Phillip Lopez MD on 07/31/2022 10:28 AM PST Station ID: [id number]
[2022-07-31] MEDS: MAGNESIUM OXIDE 400 MG TABLET PO SCH ×2 (10:33→21:02)
[2022-07-31] MEDS: levoFLOXacin 250 MG TABLET PO SCH (13:06)
[2022-07-31] MEDS: valACYclovir 500 MG TABLET PO SCH ×2 (13:52→21:02)
--- NOTE | 2022-07-31 16:19 | PROVIDER PROGRESS NOTE ---
Subjective - Prog Note Date Prog Note Date: 07/31/22 Prog Note Time: 16:09 - Subjective Pt reports feeling: Improved Subjective: 62 year old female patient with alcohol dependence, tobacco dependence and recent fall resulting in left elbow fracture and lumbar compression who was admitted for hyponatremia. She was seen in the ED 07/19 after not eating much over the last month. She has been inpatient since 07/21. She is medically cleared today to go to SNF and start rehab. She meets the criteria for malnutrition present on admission. She has severe protein calorie malnutrition d/t significant muscle wasting, loss of subcutaneous fat, nutrition intake of less than 50% of recommended intake for 2 weeks or more, weight loss of greater than 2% in 1 week or greater than 5% in 1 month or greater than 7.5% in 3 months, and a BMI of 13.6. She will need PT and OT. On her lung CT scan a new pulmonary nodule was seen, possibly reactive lymphadenopathy. Recommend f/u PET scan in a few weeks to r/o cancer or infectious etiology. Objective - Vital Signs/Intake & Output Vital Signs: Vital Signs x48h Temp Pulse Resp BP Pulse Ox O2 Flow Rate 07/31/22 14:00 36.5 C 96 18 109/69 96 07/31/22 10:23 86 16 110/76 100 2 Intake & Output: Intake & Output 07/28/22 07/29/22 07/30/22 07/31/22 23:59 23:59 23:59 23:59 Intake Total 921 314 2927 690 Output Total 2300 1250 900 200 Balance -1760 -544 272 490 - Objective General Appearance: positive: No acute distress, Alert, Lethargic (Was closing her eyes intermittently when I was talking with her and the family.), Other (Frail appearing, cachetic) Eyes Bilateral: positive: Normal inspection ENT: positive: ENT inspection nml, No signs of dehydration Neck: positive: Nml inspection, Thyroid nml, No JVD Respiratory: positive: Chest non-tender, Other (Non-productive dry cough every couple minutes. Decreased breath sounds on auscultation) Cardiovascular: positive: Regular rate & rhythm, No murmur Abdomen: positive: Non-tender, No distention Back: positive: Other (L lower back shingles along sciatic nerve distribution. Chronic R lower back msk pain with palpable tenderness) Skin: positive: Other (Skin on bones, very little muscle mass) Extremities: positive: Non-tender, Full ROM, No pedal edema Neurologic/Psychiatric: positive: Oriented x3, Motor nml, Sensation nml - Lab Results Fish Bones: 07/29/22 05:33 07/29/22 05:33 Other Labs: Lab Results x24hrs 07/31/22 Range/Units 04:46 PT 10.9 (9.9-12.6) secs INR 1.0 (0.8-1.2) Assessment/Plan - Problem List (1) Hyponatremia Impression: Sodium was 108 on admission. Her last sodium reading was 131 and her cognition is appropriate. Her hyponatremia should resolve with diet and normal hydration and discontinuing alcohol. Patient understands and is agreeable to abstinence from alcohol and improved nutrition. (2) Lung mass Impression: Will put in a referral for a PET scan in 2-6 weeks to r/o cancer. This will give patient time to have PT/OT and work on improved nutrition to get stronger. (3) Malnutrition Impression: See subjective for severe protein calorie malnutrition Qualifiers: Malnutrition type: protein-calorie malnutrition Protein-calorie malnutrition severity: severe Qualified Code(s): E43 - Unspecified severe protein-calorie malnutrition (4) Generalized weakness Impression: Improving. She will start PT/OT and work on strength and nutrition. (5) Shingles Impression: L lower back, sciatic nerve distribution. Started on PO valacyclovir. Qualifiers: Herpes zoster complications: without complications Qualified Code(s): B02.9 - Zoster without complications
[2022-07-31] MEDS ORDERED: LORazepam 0.5 MG TABLET PO SCH (19:08)
[2022-07-31] MEDS: LORazepam 0.5 MG TABLET PO SCH (21:01)
[2022-07-31] MEDS: ACETAMINOPHEN 325 MG TABLET PO PRN (21:07)
[2022-08-01] MEDS: SODIUM CHLORIDE FLUSH 0.9% 10 ML SYRINGE IVP SCH ×3 (01:47→18:13)
[2022-08-01] MEDS: BUDESONIDE 0.5 MG/2 ML NEB INH SCH ×2 (05:23→22:30)
[2022-08-01] MEDS: IPRATROPIUM/ALBUTEROL 3 ML NEB INH SCH ×4 (05:23→22:30)
[2022-08-01] MEDS: valACYclovir 500 MG TABLET PO SCH ×3 (05:51→21:12)
[2022-08-01] MEDS: guaiFENesin 600 MG TABLET PO SCH ×2 (08:48→21:10)
[2022-08-01] MEDS: THIAMINE 100 MG TABLET PO SCH (08:49)
[2022-08-01] MEDS: PRENATAL VITAMIN TABLET PO SCH (08:49)
[2022-08-01] MEDS: LIDOCAINE PATCH 5% TOP SCH ×2 (08:49→09:00)
[2022-08-01] MEDS: POTASSIUM CHLORIDE 10 MEQ CAPSULE PO SCH ×2 (08:49→18:09)
[2022-08-01] MEDS: MAGNESIUM OXIDE 400 MG TABLET PO SCH ×2 (08:49→21:10)
[2022-08-01] MEDS: LACTULOSE 10 GM /15 ML UDC PO SCH (08:50)
[2022-08-01] MEDS: amLODIPine 5 MG TABLET PO SCH (08:50)
[2022-08-01] MEDS: levoFLOXacin 250 MG TABLET PO SCH (13:18)
--- NOTE | 2022-08-01 13:57 | PROVIDER PROGRESS NOTE ---
Subjective - Prog Note Date Prog Note Date: 08/01/22 Prog Note Time: 13:55 - Subjective Pt reports feeling: No change (She reports that she is ready to leave the hospital and start PT for improved strength.) Objective - Vital Signs/Intake & Output Intake & Output: Intake & Output 07/29/22 07/30/22 07/31/22 08/01/22 23:59 23:59 23:59 23:59 Intake Total 706 1172 1060 480 Output Total 1250 900 400 0 Balance -544 272 660 480 - Objective General Appearance: positive: No acute distress, Alert, Other (She appears frail and cachectic. Her cheeks and chest are sunken in with prominent cheek bones and clavicles. She is skeletal in appearance.) Eyes Bilateral: positive: Normal inspection, PERRL, EOMI, No lid inflammation, Conjunctivae nml, No scleral icterus ENT: positive: ENT inspection nml, No signs of dehydration Neck: positive: Nml inspection Respiratory: positive: Chest non-tender, No respiratory distress, Other (She has a productive cough. She has coarse breath sounds.) Cardiovascular: positive: Regular rate & rhythm, No murmur, Other (Thumping PMI due to thin body habitus.) Peripheral Pulses: 2+ Radial (R) Abdomen: positive: Non-tender, Nml bowel sounds Back: positive: Other (Shingles L side sciatic nerve distribution) Skin: positive: Color nml, Other (Shingles) Extremities: positive: Non-tender, Full ROM Neurologic/Psychiatric: positive: Oriented x3, Weakness (generalized weakness due to lack of muscle tone) - Lab Results Fish Bones: 07/29/22 05:33 07/29/22 05:33 - Diagnostic Imaging Diagnostic Imaging Results: positive: Final report reviewed (Moderate to severe centrilobular emphysema, two R upper lobe spiculated pulmonary nodules) Assessment/Plan - Problem List (1) Hyponatremia Impression: Her sodium was 108 on admission. Her last sodium reading was 131 on 07/29. Her cog nition is appropriate. She should continue to improve with diet and normal hydration and discontinuation of alcohol consumption. (2) Lung mass Impression: Referral for PET scan in a few weeks following rehab to r/o cancer. (3) Malnutrition Impression: She meets criteria for severe protein calorie malnutrition due to significant muscle wasting, loss of subcutaneous fat, nutrition intake less than 50% of recommended intake for 2 weeks or more, and BMI 13.6. She will have PT/OT for improved strengthening and nutrition. Qualifiers: Malnutrition type: protein-calorie malnutrition Protein-calorie malnutrition severity: severe Qualified Code(s): E43 - Unspecified severe protein-calorie malnutrition (4) Generalized weakness Impression: Improving. She will start PT/OT to work on strength and nutrition. (5) Shingles Impression: She is taking PO valacyclovir. She symptoms are not worsening. She reports minimal discomfort. Will continue her on medication and monitor. Qualifiers: Herpes zoster complications: without complications Qualified Code(s): B02.9 - Zoster without complications
[2022-08-01] MEDS: LORazepam 0.5 MG TABLET PO SCH (21:12)
[2022-08-02] MEDS: ACETAMINOPHEN 325 MG TABLET PO PRN ×3 (01:15→16:53)
[2022-08-02] MEDS: SODIUM CHLORIDE FLUSH 0.9% 10 ML SYRINGE IVP SCH ×3 (01:17→17:24)
[2022-08-02] MEDS: valACYclovir 500 MG TABLET PO SCH ×3 (05:19→21:11)
[2022-08-02] MEDS: IPRATROPIUM/ALBUTEROL 3 ML NEB INH SCH ×3 (05:28→19:29)
[2022-08-02] MEDS: BUDESONIDE 0.5 MG/2 ML NEB INH SCH ×2 (05:28→07:29)
[2022-08-02] MEDS: POTASSIUM CHLORIDE 10 MEQ CAPSULE PO SCH ×2 (08:09→17:24)
[2022-08-02] MEDS: PRENATAL VITAMIN TABLET PO SCH (08:09)
[2022-08-02] MEDS: amLODIPine 5 MG TABLET PO SCH (08:12)
[2022-08-02] MEDS: MAGNESIUM OXIDE 400 MG TABLET PO SCH ×2 (08:12→21:13)
[2022-08-02] MEDS: guaiFENesin 600 MG TABLET PO SCH ×2 (08:12→21:12)
[2022-08-02] MEDS: LIDOCAINE PATCH 5% TOP SCH (08:13)
[2022-08-02] MEDS: THIAMINE 100 MG TABLET PO SCH (08:13)
[2022-08-02] MEDS: LACTULOSE 10 GM /15 ML UDC PO SCH (08:14)
[2022-08-02] MEDS: levoFLOXacin 250 MG TABLET PO SCH (11:56)
--- NOTE | 2022-08-02 14:08 | PROVIDER PROGRESS NOTE ---
Subjective - Prog Note Date Prog Note Date: 08/02/22 Prog Note Time: 14:05 - Subjective Pt reports feeling: Improved Subjective: She indicates that she does not feel as weak and that she just wants to be out of the hospital and on to the next step so she can home. She states that she wants the hospital to discharge her tomorrow and place her at a SNF. She will call [facility] [place] tomorrow since they are closed on Sundays and pay her outstanding bill. She is becoming very agitated from being in the hospital for nearly two weeks. She states that she feels like no one cares about her. Objective - Vital Signs/Intake & Output Vital Signs: Vital Signs x48h Temp Pulse Pulse Resp BP Pulse Ox O2 Flow Rate 08/02/22 08:02 36.2 C L 90 18 98/64 98 2 08/02/22 07:30 86 18 2 Intake & Output: Intake & Output 07/30/22 07/31/22 08/01/22 08/02/22 23:59 23:59 23:59 23:59 Intake Total 1172 1060 1396 1136 Output Total 900 400 500 500 Balance 272 660 896 636 - Objective General Appearance: positive: No acute distress, Alert, Anxious (She is becoming agitated from being in the hospital for 2 weeks.) Eyes Bilateral: positive: Normal inspection, PERRL, EOMI, No lid inflammation, Conjunctivae nml, No scleral icterus ENT: positive: ENT inspection nml, No signs of dehydration Neck: positive: Nml inspection, Thyroid nml, No JVD, Trachea midline Respiratory: positive: Chest non-tender, No respiratory distress, Breath sounds nml Cardiovascular: positive: Regular rate & rhythm, No murmur Peripheral Pulses: 2+ Radial (R), 2+ Radial (L) Abdomen: positive: Non-tender, Nml bowel sounds, No distention Back: positive: Other (Shingles is improving, she is not in pain) Skin: positive: Color nml, Other (Shingles improving along sciatic dermatome, L lower back) Extremities: positive: Non-tender, Full ROM, No pedal edema, Other (cachexia) Neurologic/Psychiatric: positive: Oriented x3, Motor nml, Sensation nml - Lab Results Fish Bones: 07/29/22 05:33 07/29/22 05:33 - Diagnostic Imaging Diagnostic Imaging Results: positive: Final report reviewed (CXR 07/31/22 spiculated pulmonary nodules in R upper lobe) Assessment/Plan - Problem List (1) Hyponatremia Impression: Lab 131 on 07/29. No symptoms of hyponatremia (seizure, headache, nausea, vomiting, tremors, confusion). No need to repeat lab at this time. She is aw aiting placement for SNF to be discharged from inpatient care. (2) Lung mass Impression: CXR on 07/31/22 showed spiculated pulmonary nodules in R upper lobe. Following PT for strength and nutritional rehab she will be scheduled for a PET scan to r/o cancer. (3) Malnutrition Impression: She meets criteria for severe protein calorie malnutrition d/t significant muscle wasting, loss of subcutaneous fat, nutrition intake of less than 50% of recommended intake for 2 weeks or more, and BMI of 13.6. Patient has been eating during her inpatient stay. She will continue to work of strength and nutrition in rehab. Qualifiers: Malnutrition type: protein-calorie malnutrition Protein-calorie malnutrition severity: severe Qualified Code(s): E43 - Unspecified severe protein-calorie malnutrition (4) Generalized weakness Impression: Improved. She is ready to be placed at a SNF and start rehab. Awaiting placement at this time. (5) Shingles Impression: Improving since starting valacyclovir. She denies pain. Qualifiers: Herpes zoster complications: without complications Qualified Code(s): B02.9 - Zoster without complications
[2022-08-02] MEDS: LORazepam 0.5 MG TABLET PO SCH (21:13)
[2022-08-03] MEDS: SODIUM CHLORIDE FLUSH 0.9% 10 ML SYRINGE IVP SCH ×3 (01:00→16:57)
[2022-08-03] MEDS: valACYclovir 500 MG TABLET PO SCH ×3 (06:09→21:22)
[2022-08-03] MEDS: ACETAMINOPHEN 325 MG TABLET PO PRN ×2 (06:26→21:36)
[2022-08-03] MEDS: LIDOCAINE PATCH 5% TOP SCH (08:03)
[2022-08-03] MEDS: LACTULOSE 10 GM /15 ML UDC PO SCH (08:03)
[2022-08-03] MEDS: guaiFENesin 600 MG TABLET PO SCH ×2 (08:04→21:22)
[2022-08-03] MEDS: PRENATAL VITAMIN TABLET PO SCH (08:04)
[2022-08-03] MEDS: THIAMINE 100 MG TABLET PO SCH (08:05)
[2022-08-03] MEDS: MAGNESIUM OXIDE 400 MG TABLET PO SCH ×2 (08:05→21:22)
[2022-08-03] MEDS: amLODIPine 5 MG TABLET PO SCH (08:05)
[2022-08-03] MEDS: POTASSIUM CHLORIDE 10 MEQ CAPSULE PO SCH ×2 (08:06→16:57)
[2022-08-03] MEDS: IPRATROPIUM/ALBUTEROL 3 ML NEB INH SCH ×5 (08:52→19:45)
--- NOTE | 2022-08-03 09:14 | PROVIDER PROGRESS NOTE ---
Subjective - Prog Note Date Prog Note Date: 08/03/22 Prog Note Time: 09:14 - Subjective Pt reports feeling: Improved Subjective: She indicates that she feels much better today. She says she walked down the bauer with nurses right before I came in to see her and she felt stronger. She really wants to get out of the hospital and move on to the next step so she can get stronger and get back to her life. She says once her son arrives they are going to call [facility] [place] to see about paying her outstanding bill. Objective - Vital Signs/Intake & Output Reviewed Vital Signs: Yes Vital Signs: Vital Signs x48h Temp Pulse Resp BP Pulse Ox 08/03/22 02:19 36.5 C 88 22 125/70 97 Intake & Output: Intake & Output 07/31/22 08/01/22 08/02/22 08/03/22 23:59 23:59 23:59 23:59 Intake Total 1060 1396 2110 Output Total 400 500 750 400 Balance 781 917 5985 -400 - Objective General Appearance: positive: No acute distress, Alert Eyes Bilateral: positive: Normal inspection, PERRL, EOMI, No lid inflammation, C onjunctivae nml, No scleral icterus ENT: positive: ENT inspection nml, Pharynx nml, No signs of dehydration Neck: positive: Nml inspection, Thyroid nml, No JVD, Trachea midline Respiratory: positive: Chest non-tender, No respiratory distress, Breath sounds nml Cardiovascular: positive: Regular rate & rhythm, No murmur Peripheral Pulses: 2+ Radial (R), 2+ Radial (L) Abdomen: positive: Non-tender, No organomegaly, Nml bowel sounds, No distention Back: positive: Other (Shingles is improving) Skin: positive: Color nml, Other (Shingles improving) Extremities: positive: Non-tender, Full ROM, Other (cachectic) Neurologic/Psychiatric: positive: Oriented x3, Motor nml, Sensation nml, Mood/affect nml Comments/Other: She is a frail appearing woman who looks older than her age. She has very little muscle mass. She is more talkative today and has good eye contact. She is not as agitated when she talks with me as she has been the last couple days. - Lab Results Fish Bones: 07/29/22 05:33 07/29/22 05:33 Assessment/Plan - Problem List (1) Hyponatremia Impression: Lab 131 on 07/29. No symptoms of hyponatremia (seizure, headache, nausea, vomiting, tremors, confusion). Plan: No need to repeat lab at this time. She is awaiting placement for SNF to be discharged from inpatient care. (2) Lung mass Impression: CXR on 07/31/22 showed spiculated pulmonary nodules in R upper lobe. Following PT for strength and nutritional rehab she will be scheduled for a PET scan to r/o cancer. (3) Malnutrition Impression: She meets criteria for severe protein calorie malnutrition d/t significant muscle wasting, loss of subcutaneous fat, nutrition intake of less than 50% of recommended intake for 2 weeks or more, and BMI of 13.6. Patient has been eating during her inpatient stay. Plan: She will continue to work of strength and nutrition in rehab. Qualifiers: Malnutrition type: protein-calorie malnutrition Protein-calorie malnutrition severity: severe Qualified Code(s): E43 - Unspecified severe protein-calorie malnutrition Qualifiers: Malnutrition type: protein-calorie malnutrition Protein-calorie malnutrition severity: severe Qualified Code(s): E43 - Unspecified severe protein-calorie malnutrition (4) Generalized weakness Impression: Improved from yesterday. Plan: She is ready to be placed at a SNF and start rehab. Awaiting placement at this time. (5) Shingles Impression: Improving on valacyclovir. She denies pain. Plan: Will continue to take medication and monitor. Qualifiers: Herpes zoster complications: without complications Qualified Code(s): B02.9 - Zoster without complications Qualifiers: Herpes zoster complications: without complications Qualified Code(s): B02.9 - Zoster without complications
[2022-08-03] MEDS: BUDESONIDE 0.5 MG/2 ML NEB INH SCH ×2 (10:26→19:45)
[2022-08-03] MEDS: levoFLOXacin 250 MG TABLET PO SCH (12:58)
--- NOTE | 2022-08-03 16:53 | DISCHARGE SUMMARY ---
Discharge Summary Admit Date: 07/21/22 Discharge Date: 08/05/22 Discharging Provider: Ayaka Terrell MD Primary Care Provider: PREETI Ga Code Status: Do Not Attempt Resuscitation Condition at Discharge: Stable Discharge Disposition: 06 Home Health Service - DIAGNOSES Discharge Diagnoses with Status of Each Condition: 1. Obtundation 2. Influenza infection 3. Lung mass 4. COPD with exacerbation 5. Hyponatremia 6. Hypokalemia 7. Alcohol abuse 8. Generalized weakness 9. Shingles 10. Severe protein calorie malnutrition - HPI History of Present Illness: This is a 62-year-old white female with a history of falls that resulted in a left elbow fracture in 05/16, that needed surgery and then needed surgical revision because of a fall. She has a history of alcohol abuse and is a smoker. The patient has had "the crud" that started about 5 days ago. She has been taking in very little liquids or nutrition according to the family. The POA who is in [place], called the ER yesterday stating that family would bring in his mother because of these concerns and that we should be aware that she minimizes her alcohol intake. The patient did arrive to the ER and had labs drawn which showed a sodium level of 106. She was urged to be admitted to the hospital because of a critical low sodium but she left AMA, being able to make decisions then. At home family members urged her to return and she did come back to the ER the same day. She has been started on IV saline. The ED provider has reached out to speak to the Hospitalist team regarding management, and she will now be admitted to inpatient status for further management of her hyponatremia, anorexia and history of alcohol abuse. The patient is very somnolent. She says she has been like this for about 2 or 3 days, started after she caught the "crud". She says she is sleeping most of the day and hardly drinking or eating. She denies nausea vomiting and has chronic diarrhea for years which has not changed. She denies pleuritic pain, anginal pain or abdominal pain or cramping. She is not sure if she has had a fever. She denies nausea or vomiting. We discussed her CODE BLUE wishes and she wants to be a full code. - Past Medical History Cardiovascular: reports: None Respiratory: reports: None Neuro: reports: None Endocrine/Autoimmune: reports: None GI: reports: Chronic diarrhea (Pathology from biopsies done at EGD and colonoscopy in the past were unremarkable.) CONTROL SYSTEMS ENG: reports: None : reports: None HEENT: reports: None Psych: reports: None Musculoskeletal: reports: None Derm: reports: None MRSA Hx?: Yes - Past Surgical History General: reports: Appendectomy, Colonoscopy /CONTROL SYSTEMS ENG: reports: Hysterectomy HEENT: reports: Tonsil/Adenoidectomy - CONSULTS | PROCEDURES Procedures: Multiple chest x-rays showed hyperinflation and chronic interstitial changes. Subtle right upper lobe pulmonary nodule stable. Pelvis CT compression of L5 with near complete loss of L5 vertebral body since April 27. Status post internal fixation of intertrochanteric fracture of left proximal femur. Subacute fracture lateral aspect of left inferior pubic ramus near ischial tuberosity. No other fracture or dislocation. No gross pelvic soft tissue abnormalities. Head CT without acute intracranial findings. Cervical spine CT with no acute fracture. Degenerative changes seen, worse inferiorly. Lower extremity CT with osteopenia. No gross soft tissue abnormality seen in bilateral lower extremities. No joint effusions. Abdominal ultrasound for LFTs showed heterogeneous echotexture. No focal hepatic mass. Contracted gallbladder. No gallstones. Chest CT has right upper lobe spiculated solid mass with central cavitation measuring 13 x 13 mm. Highly suspicious for pulmonary neoplasm. Enlarged mediastinal lymph nodes. Scattered foci of poorly defined tree-in-bud opacities involving the lungs, particularly the right middle lobe and both lower lobes. Presumed dependent atelectasis. No effusions. Diffuse changes of osteopenia, wedge deformities of T-spine. The second CT is unchanged. But there is a new short-term right upper lobe spiculated pulmonary nodule in front of the old 1. - HOSPITAL COURSE Hospital Course: It was felt that the patient had viral syndrome, positive for influenza A. This caused destabilization and the patient was already doing poorly with a history of alcohol abuse, poor p.o. intake, and severe protein calorie malnutrition. Her physical exam is remarkable for gaunt skeletal frame. Severe loss of muscle mass. Hyponatremia gradually improved with intervention. CT of the chest showed a spiculated lung area with mediastinal adenopathy. Our concern was that of neoplasm in a lady who smokes and drinks. We got to the point where a CT- guided biopsy was going to be done and the radiologist on that day, as they were doing the CT, found a new spiculated lesion in front of the old spiculated lesion. With that in mind, they felt that this may be a usual sequela of her influenza. That we were doing a lung biopsy that did not need to be done, especially in a patient who is at high risk for pneumothorax. We discussed the case at length. Went back and forth between whether the lung biopsy should be done or not. And we have opted to cancel the lung biopsy at this time. She will need a repeat CT with PET in a month or so. We are hoping that in that time she will improve her nutrition, improve her strength and rehab. We reached out to several long term facilities for rehab for her. All declined. Apparently she has a behavioral issue from the last long term facility she was at. There is also the issue of an unpaid bill at [facility]. The day before discharge, after speaking to many institutions, the decision was made to place her in respite care. Is has been emphasized to her that she cannot drink anymore. She states she will not. She will work on improving her nutrition. And she needs to work with home health PT at the respite care facility to improve her strength. At that point in time, she can follow-up with her new primary care provider Edilberto Otto. I have spoken to Ms. Otto. She is going to put in a referral for the PET scan. Hopefully the timing will be good so that the patient will get this when she finishes respite care in a month. During the patient's stay, she developed shingles of the left sciatic nerve distribution. She was started on Valtrex. Valtrex should be continued until August 06. She completed empiric antibiotic therapy with ceftriaxone and azithromycin for possible pneumonia. She did receive a banana bag for her history of alcohol abuse. She was continued on vitamins. At discharge she should be on a vitamin, and vitamin B12 sublingual. She was started on lactulose for an elevated ammonia and should be continued on lactulose in the outpatient setting. Discharge exam - ALLERGIES Allergies/Adverse Reactions: Allergies Allergy/AdvReac Type Severity Reaction Status Date / Time Penicillins Allergy Mild Unknown Verified 07/20/22 17:18 morphine Allergy Hallucinati Verified 07/20/22 17:18 ons - MEDICATIONS Home Medications: Ambulatory Orders Medication Instructions Recorded Confirmed Acetaminophen [Tylenol] 650 mg PO Q4HR PRN tab 08/03/22 LORazepam [Ativan] 0.5 mg PO QPM #30 tab 08/03/22 Lactulose 15 ml PO DAILY #240 ml 08/03/22 Lidocaine Patch 5% [Lidoderm Patch] 1 patch TOP DAILY patch 08/03/22 Magnesium Oxide [Mag Ox] 400 mg PO BID tab 08/03/22 Potassium Chloride [Micro-K] 20 meq PO DAILY #30 cap 08/03/22 amLODIPine [Norvasc] 2.5 mg PO DAILY #30 tab 08/03/22 valACYclovir [Valtrex] 1,000 mg PO TID #9 tab 08/03/22 Cyanocobalamin (Vitamin B-12) 2,000 mcg PO DAILY #30 lozenge 08/05/22 [Vitamin B-12] traMADol [Ultram] 50 mg PO Q4-6H PRN #10 tablet 08/05/22 - LABS Result Diagrams: 08/04/22 11:11 08/04/22 11:11
--- NOTE | 2022-08-03 20:18 | Discharge Plan ---
"Discharge Plan for SNF / [facility] - Discharge Plan And Transition Orders Problem Reviewed?: Yes Disposition: 06 Home Health Service Condition: Stable Allergies and Adverse Reactions: Allergies Allergy/AdvReac Type Severity Reaction Status Date / Time Penicillins Allergy Mild Unknown Verified 07/20/22 17:18 morphine Allergy Hallucinati Verified 07/20/22 17:18 ons Health Concerns: The patient was admitted lethargic, severely hyponatremic, with evidence of a COPD exacerbation, had influenza pneumonia, diagnosed with a vertebral compression fracture and a new mass seen in her right lung on CT scan. She completed a course of Tamiflu and antibiotics. She became more awake, and had chronic protein alessandro malnutrtion due to longstanding alcohol abuse and malnutrition. She is participating in rehab. Further outpatient work-up of the right lung mass is needed, after her stay in respite for PT, OT and nutritional rehab. Plan of Treatment: Severely cachectic malnourished female due to poor protein intake, 4 glasses of wine a day intake, the comes in lethargic and positive for influenza. She received empiric antibiotic therapy for pneumonia. Tamiflu for influenza A. Minimal alcohol withdrawal. She is very weak and deconditioned. Needs respite care to get stronger. Possible lung nodule on CT scan. She will need an outpatient CT PET scan when she finishes with respite care. She did develop shingles while here and will be sent home on Valtrex.On admission she did not take any medications. At discharge she is going to be going home on a new Norvasc prescription, new Ativan prescription, multivitamin, magnesium oxide, a new lactulose prescription. She is completed antibiotics for any lung infection. While in the hospital she was on DuoNeb, budesonide, Mucinex. Right now her lung exam is completely stable. I will stop those medications. She was not able to be discharged to SNF due to several facilities declining accepting her. She was sent to respite care. Care Goals: To gain weight, improve nutrition, get strong enough to be independent to live in her own home again. From there she will proceed with work-up for the lung nodule Assessment: While she has been very resistant to discuss her alcohol abuse and her overall poor status, in the last few days she has been determined to get better and to get home. - SNF / [facility] Transition Orders Discharge Diagnosis: 1. Obtundation 2. Influenza infection 3. Lung mass 4. COPD with exacerbation 5. Hyponatremia 6. Hypokalemia 7. Alcohol abuse 8. Generalized weakness 9. Shingles 10. Severe protein calorie malnutrition Medicare Certification Statement: I certify that [facility] care is medically necessary on a continuing basis for any of the conditions for which she/he is receiving care during hospitalization. Notify PCP of admission and forward orders to primary provider for signature. Weight on admission and: Weekly Other Notification Orders: Call PCP immediately if patient develops dyspnea, chest pain/tightness or edema. House Bowel Program: No Additional Bowel Program Orders: If no BM after 2 days, nurse may give M.O.M. 30ml PO PRN and/or ducolax Supp 1 MO and/or SWATHI 250mg P.O., and/or senna 1-2 tabs PO. On day 3 nurse may give repeat above order until residents constipation is resolved. Annual Influenza Vaccine (between Mar 26 and October 23): No Two-step PPD per [facility] [phone] or approved exception documents: No Medication Orders: PLEASE REFER TO THE DISCHARGE MEDICATION LIST. Insulin Orders?: No - Medications New Prescriptions: LORazepam [Ativan] 0.5 mg PO QPM #30 tab Lactulose 15 ml PO DAILY #240 ml amLODIPine [Norvasc] 2.5 mg PO DAILY #30 tab traMADol [Ultram] 50 mg PO Q4-6H PRN #10 tablet PRN Reason: Severe Pain valACYclovir [Valtrex] 1,000 mg PO TID #9 tab Cyanocobalamin (Vitamin B-12) [Vitamin B-12] 2,000 mcg PO DAILY #30 lozenge - Diet Type: Geriatric Texture: Regular Liquids: Thin May have monthly special meal: Yes - Therapies | Activity Rehabilitation Potential: Return to independent living Activity: Activity as Tolerated Weight Bearing: Full Weight Assistance Devices: Walker Follow Up: nancie Otto"
[2022-08-03] MEDS: LORazepam 0.5 MG TABLET PO SCH (21:22)
[2022-08-04] MEDS: SODIUM CHLORIDE FLUSH 0.9% 10 ML SYRINGE IVP SCH ×3 (00:50→16:59)
[2022-08-04] MEDS: ACETAMINOPHEN 325 MG TABLET PO PRN (05:29)
[2022-08-04] MEDS: valACYclovir 500 MG TABLET PO SCH ×3 (05:29→21:37)
[2022-08-04] MEDS ORDERED: SACCHAROMYCES BOULARDII 250 MG CAPSULE PO SCH (08:00)
[2022-08-04] MEDS: BUDESONIDE 0.5 MG/2 ML NEB INH SCH (08:11)
[2022-08-04] MEDS: IPRATROPIUM/ALBUTEROL 3 ML NEB INH SCH (08:11)
[2022-08-04] MEDS: LACTULOSE 10 GM /15 ML UDC PO SCH (09:22)
[2022-08-04] MEDS: POTASSIUM CHLORIDE 10 MEQ CAPSULE PO SCH ×2 (09:22→16:59)
[2022-08-04] MEDS: PRENATAL VITAMIN TABLET PO SCH (09:23)
[2022-08-04] MEDS: amLODIPine 5 MG TABLET PO SCH (09:23)
[2022-08-04] MEDS: guaiFENesin 600 MG TABLET PO SCH (09:23)
[2022-08-04] MEDS: THIAMINE 100 MG TABLET PO SCH (09:24)
[2022-08-04] MEDS: MAGNESIUM OXIDE 400 MG TABLET PO SCH ×2 (09:24→21:37)
[2022-08-04 11:19] LABS: BASOPHILS # (AUTO) 0.1 10^3/uL (0.0-0.1); BASOPHILS % (AUTO) 1.3 %; EOSINOPHILS % (AUTO) 0.6 %; HCT - HEMATOCRIT 35.4 % (37.0-47.0); HGB - HEMOGLOBIN 11.3 g/dL (12.0-16.0); MEAN CORPUSCULAR HEMOGLOBIN 31.9 pg (27.0-31.0); MEAN CORPUSCULAR HGB CONC 31.9 g/dL (32.0-36.0); MEAN PLATELET VOLUME 7.8 fL (7.9-10.8); MONOCYTES # (AUTO) 1.1 10^3/uL (0.0-1.0); MONOCYTES % (AUTO) 16.8 %; NEUTROPHILS # (AUTO) 3.5 10^3/uL (1.5-6.6); NEUTROPHILS % (AUTO) 51.4 %; PLT - PLATELET COUNT 407 10^3/uL (130-450); RED BLOOD COUNT 3.54 10^6/uL (4.20-5.40); RED CELL DISTRIBUTION WIDTH 14.6 % (12.0-15.0); WHITE BLOOD COUNT 6.8 x10^3/uL (4.8-10.8)
[2022-08-04 11:33] LABS: ALBUMIN 3.4 g/dL (3.2-5.5); BILIRUBIN,TOTAL 0.3 mg/dL (0.2-1.0); CALCIUM 8.9 mg/dL (8.5-10.3); CREATININE 0.5 mg/dL (0.4-1.0); TOTAL PROTEIN 6.9 g/dL (6.7-8.2)
[2022-08-04] MEDS: LIDOCAINE PATCH 5% TOP SCH (13:00)
[2022-08-04] MEDS: levoFLOXacin 250 MG TABLET PO SCH (13:04)
--- NOTE | 2022-08-04 15:10 | PROVIDER PROGRESS NOTE ---
Assessment/Plan - Problem List (1) Hyponatremia Assessment/Plan: Last Na was 131 on 07/29. No labs done since then until today, and Na is 128 today. I suspect she has liver cirrhosis from alcohol abuse, that gives her chronic hyponatremia as well Plan: We will assure that she is not getting much free water Follow BMP daily. (2) Lung mass Impression: Her first CT scan showed a spiculated RUL mass. There was then plan to biopsy it under CT guidance but a second spiculated mass was seen on imaging on 07/31/22, so it may be infectious and n needle Bx was done. Plan: After rehab with PT for strength and nutritional rehab she will be scheduled for a PET scan to r/o cancer as an outpt. The last Hospitalist gave a warm hand off to Dr Gloria Otto, who will be her PCP. (3) Severe protein calorie Malnutrition Impression: She meets criteria for severe protein calorie malnutrition d/t significant muscle wasting, loss of subcutaneous fat, nutrition intake of less than 50% of recommended intake for 2 weeks or more, and BMI of 13.6. Patient has been eating during her inpatient stay. Plan: She will continue to work of strength and nutrition in rehab. Qualifiers: Malnutrition type: protein-calorie malnutrition Protein-calorie malnutrition severity: severe Qualified Code(s): E43 - Unspecified severe protein-calorie malnutrition (4) Alcohol abuse As per Hx Her Ammonia level has improved from 70 earlier this admission to 13 today Plan: Continue a vitamin daily and thiamine 100 mg daily Continue lactulose daily (5) Generalized weakness Impression: Improving minimally daily Plan: She is ready to be placed in [facility] to do PT and OT rehab. Awaiting placement at this time. (6) Shingles Impression: Improving on valacyclovir. She denies pain. Plan: Will continue to take medication and monitor. Qualifiers: Herpes zoster complications: without complications Qualified Code(s): B02.9 - Zoster without complications - Current Meds Current Meds: Current Medications Generic Name Dose Route Start Last Admin Trade Name Freq PRN Reason Stop Dose Admin Acetaminophen 650 mg 07/21/22 12:03 08/04/22 05:29 Acetaminophen 325 Mg Tablet PO 650 mg Q4HR PRN Administration Pain 1 to 4, or Fever Albuterol/Ipratropium 3 ml 07/23/22 14:22 07/28/22 20:05 Ipratropium/Albuterol 3 Ml Neb INH 3 ml Q4HR PRN Administration Wheezing Amlodipine Besylate 2.5 mg 07/26/22 09:00 08/04/22 09:23 Amlodipine 5 Mg Tablet PO 2.5 mg DAILY ALFREDA Administration Lactulose 10 gm 07/24/22 12:00 08/04/22 09:22 Lactulose 10 Gm /15 Ml Udc PO 10 gm DAILY ALFREDA Administration Levofloxacin 750 mg 07/31/22 13:00 08/04/22 13:04 Levofloxacin 250 Mg Tablet PO 750 mg 1300 ALFREDA Administration Lidocaine 1 patch 07/26/22 09:00 08/04/22 13:00 Lidocaine Patch 5% TOP Not Given DAILY ALFREDA Lorazepam 0.5 mg 07/31/22 21:00 08/03/22 21:22 Lorazepam 0.5 Mg Tablet PO 0.5 mg QPM ALFREDA Administration Magnesium Oxide 400 mg 07/28/22 12:00 08/04/22 09:24 Magnesium Oxide 400 Mg Tablet PO 400 mg BID ALFREDA Administration Potassium Chloride 20 meq 07/27/22 11:30 08/04/22 09:22 Potassium Chloride 10 Meq Capsule PO 20 meq BIDWM ALFREDA Administration Multivit/Folic Acid/Iron 1 tab 07/24/22 12:00 08/04/22 09:23 Vitamin Tablet PO 1 tab DAILYWM ALFREDA Administration Sodium Chloride 10 ml 07/21/22 12:03 07/24/22 05:42 Sodium Chloride Flush 0.9% 10 Ml Syringe IVP 10 ml PRN PRN Administration NEEDED PER PROVIDER ORDERS Sodium Chloride 10 ml 07/21/22 17:00 08/04/22 13:06 Sodium Chloride Flush 0.9% 10 Ml Syringe IVP 10 ml 0100,0900,1700 ALFREDA Administration Thiamine HCl 100 mg 07/24/22 12:00 08/04/22 09:24 Thiamine 100 Mg Tablet PO 100 mg DAILY ALFREDA Administration Valacyclovir HCl 1,000 mg 07/31/22 14:00 08/04/22 13:04 Valacyclovir 500 Mg Tablet PO 1,000 mg TID ALFREDA Administration - Lab Result Fish Bone Diagrams: 08/04/22 11:11 08/04/22 11:11 Subjective - Subjective Patient Reports: Resting Comfortably Objective Vital Signs: Vital Signs - 24 hr 08/03/22 08/03/22 08/04/22 16:45 19:45 00:46 Temperature 36.3 C L 36.6 C Heart Rate 92 Heart Rate [ 94 94 Brachial] Respiratory 24 18 18 Rate Blood Pressure 129/73 109/62 [Right Brachial artery] O2 Saturation 99 96 08/04/22 07:55 Temperature 36.3 C L Heart Rate Heart Rate [ 80 Brachial] Respiratory 18 Rate Blood Pressure 123/74 [Right Brachial artery] O2 Saturation 99 Oxygen O2 Source Room air Oxygen Flow Rate 2 I&O (Last 24 Hrs): Intake and Output Totals x24h 08/02/22 08/03/22 08/04/22 23:59 23:59 23:59 Intake Total 2110 840 800 Output Total 750 650 600 Balance 1360 190 200 General: Alert, Oriented x3 HEENT: Mucous membr. moist/pink Neck: Supple Neuro: Alert Cardiovascular: Regular rate Respiratory: No respiratory distress Abdomen: Soft Extremities: No edema - Results Results: Laboratory Results WBC 6.8 x10^3/uL (4.8-10.8) 08/04/22 11:11 RBC 3.54 10^6/uL (4.20-5.40) L 08/04/22 11:11 Hgb 11.3 g/dL (12.0-16.0) L 08/04/22 11:11 Hct 35.4 % (37.0-47.0) L 08/04/22 11:11 MCV 100.0 fL (81.0-99.0) H 08/04/22 11:11 MCH 31.9 pg (27.0-31.0) H 08/04/22 11:11 MCHC 31.9 g/dL (32.0-36.0) L 08/04/22 11:11 RDW 14.6 % (12.0-15.0) 08/04/22 11:11 Plt Count 407 10^3/uL (130-450) 08/04/22 11:11 MPV 7.8 fL (7.9-10.8) L 08/04/22 11:11 Neut # (Auto) 3.5 10^3/uL (1.5-6.6) 08/04/22 11:11 Lymph # (Auto) 2.0 10^3/uL (1.5-3.5) 08/04/22 11:11 Mccreary # (Auto) 1.1 10^3/uL (0.0-1.0) H 08/04/22 11:11 Eos # (Auto) 0.0 10^3/uL (0.0-0.7) 08/04/22 11:11 Baso # (Auto) 0.1 10^3/uL (0.0-0.1) 08/04/22 11:11 Absolute Nucleated RBC 0.00 x10^3/uL 08/04/22 11:11 Total Counted 100 07/26/22 05:05 Band Neuts % (Manual) 0 % (0-10) 07/26/22 05:05 Abnorm Lymph % (Manual) 0 % 07/26/22 05:05 Nucleated RBC % 0.0 /100WBC 08/04/22 11:11 Neutrophils # (Manual) 3.3 10^3/uL (1.5-6.6) 07/26/22 05:05 Lymphocytes # (Manual) 1.1 10^3/uL (1.5-3.5) L 07/26/22 05:05 Monocytes # (Manual) 0.6 10^3/uL (0.0-1.0) 07/26/22 05:05 Eosinophils # (Manual) 0.0 10^3/uL (0-0.7) 07/26/22 05:05 Basophils # (Manual) 0.0 10^3/uL (0-0.1) 07/26/22 05:05 Differential Comment MANUAL DIFFERENTIAL 07/26/22 05:05 WBC Morphology NORMAL APPEARANCE (NORMAL) 07/23/22 04:20 Platelet Estimate NORMAL (130-450,000) (NORMAL) 07/26/22 05:05 Platelet Morphology NORMAL APPEARANCE (NORMAL) 07/23/22 04:20 RBC Morph Micro Appear NORMAL APPEARANCE (NORMAL) 07/26/22 05:05 PT 10.9 secs (9.9-12.6) 07/31/22 04:46 INR 1.0 (0.8-1.2) 07/31/22 04:46 Sodium 128 mmol/L (135-145) L 08/04/22 11:11 Potassium 4.0 mmol/L (3.5-5.0) 08/04/22 11:11 Chloride 93 mmol/L (101-111) L 08/04/22 11:11 Carbon Dioxide 26 mmol/L (21-32) 08/04/22 11:11 Anion Gap 9.0 (6-13) 08/04/22 11:11 BUN 10 mg/dL (6-20) 08/04/22 11:11 Creatinine 0.5 mg/dL (0.4-1.0) 08/04/22 11:11 Estimated GFR (MDRD) 125 (>89) 08/04/22 11:11 Glucose 105 mg/dL (70-100) H 08/04/22 11:11 Calcium 8.9 mg/dL (8.5-10.3) 08/04/22 11:11 Phosphorus 3.6 mg/dL (2.5-4.6) 07/29/22 05:33 Magnesium 1.8 mg/dL (1.7-2.8) 07/30/22 05:50 Total Bilirubin 0.3 mg/dL (0.2-1.0) 08/04/22 11:11 Direct Bilirubin 0.1 mg/dL (0.1-0.5) 07/24/22 05:00 AST 22 IU/L (10-42) 08/04/22 11:11 ALT 34 IU/L (10-60) 08/04/22 11:11 Alkaline Phosphatase 73 IU/L (42-121) 08/04/22 11:11 Ammonia 13.1 umol/L (7-35) 08/04/22 11:11 Total Protein 6.9 g/dL (6.7-8.2) 08/04/22 11:11 Albumin 3.4 g/dL (3.2-5.5) 08/04/22 11:11 Globulin 3.5 g/dL (2.1-4.2) 08/04/22 11:11 Albumin/Globulin Ratio 1.0 (1.0-2.2) 08/04/22 11:11 TSH 0.48 uIU/mL (0.34-5.60) 07/20/22 12:04 Free T4 1.36 ng/dL (0.58-1.64) 07/20/22 12:04 Nasal Adenovirus (PCR) NOT DETECTED 07/21/22 18:05 Nasal B. parapertussis DNA (PCR) NOT DETECTED 07/21/22 18:05 Nasal Coronavir 229E PCR NOT DETECTED 07/21/22 18:05 Nasal Coronavir HKU1 PCR NOT DETECTED 07/21/22 18:05 Nasal Coronavir NL63 PCR NOT DETECTED 07/21/22 18:05 Nasal Coronavir OC43 PCR NOT DETECTED 07/21/22 18:05 Nasal Enterovir/Rhinovir PCR NOT DETECTED 07/21/22 18:05 Nasal Influenza A H3 PCR DETECTED A 07/21/22 18:05 Nasal Influenza B PCR NOT DETECTED 07/21/22 18:05 Nasal Parainfluen 1 PCR NOT DETECTED 07/21/22 18:05 Nasal Parainfluen 2 PCR NOT DETECTED 07/21/22 18:05 Nasal Parainfluen 3 PCR NOT DETECTED 07/21/22 18:05 Nasal Parainfluen 4 PCR NOT DETECTED 07/21/22 18:05 Nasal RSV (PCR) NOT DETECTED 07/21/22 18:05 Nasal B.pertussis DNA PCR NOT DETECTED 07/21/22 18:05 Nasal C.pneumoniae (PCR) NOT DETECTED 07/21/22 18:05 Jerry Human Metapneumo PCR NOT DETECTED 07/21/22 18:05 Nasal M.pneumoniae (PCR) NOT DETECTED 07/21/22 18:05 Nasal SARS-CoV-2 (PCR) NOT DETECTED 07/21/22 18:05 Stl C. diff Tox B Gene NEGATIVE (NEGATIVE) 07/28/22 22:15 SARS-CoV-2 (PCR) NOT DETECTED 07/20/22 22:07 - Procedures Procedures: Procedures EXCISION OF DUODENUM, ENDO, DIAGN (04/15/16) EXCISION OF ESOPHAGUS, ENDO, DIAGN (04/15/16) EXCISION OF LARGE INTESTINE, ENDO, DIAGN (04/15/16) EXCISION OF STOMACH, ENDO, DIAGN (04/15/16) REMOVAL OF INT FIX FROM L ULNA, OPEN APPROACH (09/06/19) REPOSITION LEFT ULNA WITH INT FIX, OPEN APPROACH (09/06/19)
[2022-08-04] MEDS: LORazepam 0.5 MG TABLET PO SCH (21:38)
[2022-08-05 01:32] VITALS: BP 121/74
[2022-08-05] MEDS: ACETAMINOPHEN 325 MG TABLET PO PRN ×2 (03:12→10:53)
[2022-08-05] MEDS: SODIUM CHLORIDE FLUSH 0.9% 10 ML SYRINGE IVP SCH (04:16)
[2022-08-05] MEDS: valACYclovir 500 MG TABLET PO SCH (06:32)
[2022-08-05] MEDS: amLODIPine 5 MG TABLET PO SCH (08:09)
[2022-08-05] MEDS: LACTULOSE 10 GM /15 ML UDC PO SCH (08:09)
[2022-08-05] MEDS: PRENATAL VITAMIN TABLET PO SCH (08:10)
[2022-08-05] MEDS: THIAMINE 100 MG TABLET PO SCH (08:10)
[2022-08-05] MEDS: MAGNESIUM OXIDE 400 MG TABLET PO SCH (08:10)
[2022-08-05] MEDS: LIDOCAINE PATCH 5% TOP SCH (08:11)
[2022-08-05] MEDS: POTASSIUM CHLORIDE 10 MEQ CAPSULE PO SCH (08:11)
--- NOTE | 2022-08-05 08:34 | Discharge Plan ---
"Discharge Plan for SNF / [facility] - Discharge Plan And Transition Orders Problem Reviewed?: Yes Disposition: 06 Home Health Service Condition: Stable Allergies and Adverse Reactions: Allergies Allergy/AdvReac Type Severity Reaction Status Date / Time Penicillins Allergy Mild Unknown Verified 07/20/22 17:18 morphine Allergy Hallucinati Verified 07/20/22 17:18 ons Health Concerns: The patient was admitted lethargic, severely hyponatremic, with evidence of a COPD exacerbation, had influenza pneumonia, diagnosed with a vertebral compression fracture and a new mass seen in her right lung on CT scan. She completed a course of Tamiflu and antibiotics. She became more awake, admitted to longstanding alcohol abuse and malnutrition. She is participating in rehab. Further outpatient work-up of the right lung mass is needed, after her stay in respite for PT, OT and nutritional rehab. Plan of Treatment: Severely cachectic malnourished female due to poor protein intake, 4 glasses of wine a day intake, the comes in lethargic and positive for influenza. She received empiric antibiotic therapy for pneumonia. Tamiflu for influenza A. Minimal alcohol withdrawal. She is very weak and deconditioned. Needs respite care to get stronger. Possible lung nodule on CT scan. She will need an outpatient CT PET scan when she finishes with respite care. She did develop shingles while here and will be sent home on Valtrex.On admission she did not take any medications. At discharge she is going to be going home on a new Norvasc prescription, new Ativan prescription, multivitamin, magnesium oxide, a new lactulose prescription. She is completed antibiotics for any lung infection. While in the hospital she was on DuoNeb, budesonide, Mucinex. Right now her lung exam is completely stable. I will stop those medications Care Goals: To gain weight, improve nutrition, get strong enough to be independent to live in her own home again. From there she will proceed with work-up for the lung nodule Assessment: While she has been very resistant to discuss her alcohol abuse and her overall poor status, in the last few days she has been determined to get better and to get home. - SNF / [facility] Transition Orders Admit to (Facility): [facility] Under the care of (Name): Staff provider, new PCP will be Gloria Otto NP Discharge Diagnosis: (1) Hyponatremia (2) Lung mass (3) Severe protein calorie Malnutrition (4) Alcohol abuse (5) Frequent falls (6) Generalized weakness (7) Compression fracture of L5 vertebra (8) HTN (9) Shingles Medicare Certification Statement: I certify that [facility] care is medically necessary on a continuing basis for any of the conditions for which she/he is receiving care during hospitalization. Notify PCP of admission and forward orders to primary provider for signature. Weight on admission and: Weekly Other Notification Orders: Call PCP immediately if patient develops dyspnea, chest pain/tightness or edema. House Bowel Program: Yes Additional Bowel Program Orders: If no BM after 2 days, nurse may give M.O.M. 30ml PO PRN and/or ducolax Supp 1 [place] and/or SWATHI 250mg P.O., and/or senna 1-2 tabs PO. On day 3 nurse may give repeat above order until residents constipation is resolved. Annual Influenza Vaccine (between Mar 26 and October 23): Yes Two-step PPD per [facility] [phone] or approved exception documents: Yes Lab Tests or X-ray Orders: Check BMP weekly regarding her serum sodium level. Medication Orders: PLEASE REFER TO THE DISCHARGE MEDICATION LIST. Insulin Orders?: No - Medications New Prescriptions: LORazepam [Ativan] 0.5 mg PO QPM #30 tab Lactulose 15 ml PO DAILY #240 ml amLODIPine [Norvasc] 2.5 mg PO DAILY #30 tab traMADol [Ultram] 50 mg PO Q4-6H PRN #10 tablet PRN Reason: Severe Pain valACYclovir [Valtrex] 1,000 mg PO TID #9 tab Cyanocobalamin (Vitamin B-12) [Vitamin B-12] 2,000 mcg PO DAILY #30 lozenge - Diet Type: Geriatric Texture: Regular Liquids: Thin (MUST abide by a 900 cc/day FREE WATER RESTRICTION) Supplements: 4 oz protein suppl drink with each meal May have monthly special meal: Yes - Therapies | Activity Therapy: Evaluation | Treat if indicated: PT, OT Rehabilitation Potential: Maximize functional status Activity: Activity as Tolerated Weight Bearing: Full Weight Assistance Devices: Walker Follow Up: See PCP Gloria Otto NP, after discharge from the Respite facility."
== END 2022-08-05 11:15 | disposition home health service (06) | DRG 640 ==
LOC: ED 16:45 → MS2 07-21 12:03
PROVIDERS: ADMIT Internal Medicine; ATTEND Specialist
DX: E87.1 Hypo-osmolality and hyponatremia (principal); E43 Unspecified severe protein-calorie malnutrition; J10.00 Influenza due to other identified influenza virus with unspecified type of pneumonia; J18.9 Pneumonia, unspecified organism; G93.41 Metabolic encephalopathy; S32.059A Unspecified fracture of fifth lumbar vertebra, initial encounter for closed fracture; Z68.1 Body mass index [BMI] 19.9 or less, adult; J98.11 Atelectasis; R64 Cachexia; J44.0 Chronic obstructive pulmonary disease with (acute) lower respiratory infection; J44.1 Chronic obstructive pulmonary disease with (acute) exacerbation; F10.239 Alcohol dependence with withdrawal, unspecified; R53.1 Weakness; R40.0 Somnolence; R91.8 Other nonspecific abnormal finding of lung field; E87.6 Hypokalemia; B02.9 Zoster without complications; Z91.81 History of falling; F17.210 Nicotine dependence, cigarettes, uncomplicated; K52.9 Noninfective gastroenteritis and colitis, unspecified; R59.0 Localized enlarged lymph nodes; Z20.822 Contact with and (suspected) exposure to COVID-19; G47.10 Hypersomnia, unspecified; W19.XXXA Unspecified fall, initial encounter; Z66 Do not resuscitate; E83.42 Hypomagnesemia; E86.1 Hypovolemia; F41.9 Anxiety disorder, unspecified; F32.A Depression, unspecified; R79.89 Other specified abnormal findings of blood chemistry; I10 Essential (primary) hypertension; K70.30 Alcoholic cirrhosis of liver without ascites
CPT/HCPCS: 36415; 70450; 71045; 71250; 72125; 72192; 73700; 76700; 80048; 80053; 80069; 80076; 80307; 80320; 80329; 82140; 83690; 83735; 84100; 84439; 84443; 85014; 85018; 85025; 85610; 87493; 87633; 87635; 94640; 96361; 96365; 96366; 96367; 96368; 97162; 97166; 97530; 97535; 99283; 99284; 99285; A9270; J1650; J3411; J7040; J7120; J7626

== ENCOUNTER 2022-09-17 09:39 | Outpatient (CLI) | payer BC ==
[2022-09-17 10:04] LABS: INR 0.9 (0.8-1.2); PT - PROTHROMBIN TIME 10.7 secs (9.9-12.6)
[2022-09-17 10:12] LABS: ALBUMIN 4.6 g/dL (3.2-5.5); ALBUMIN/GLOBULIN RATIO 1.2 (1.0-2.2); BILIRUBIN,TOTAL 0.7 mg/dL (0.2-1.0); CALCIUM 9.7 mg/dL (8.5-10.3); CREATININE 0.5 mg/dL (0.4-1.0); PARTIAL THROMBOPLASTIN TIME 29.8 secs (24.9-33.3); POTASSIUM 4.3 mmol/L (3.5-5.0); TOTAL PROTEIN 8.3 g/dL (6.7-8.2)
== END 2022-09-17 09:40 | disposition home or self-care (01) ==
LOC: LAB 09:39
PROVIDERS: ATTEND Surgery
DX: R79.1 Abnormal coagulation profile (principal)
CPT/HCPCS: 36415; 80053; 85610; 85730

== ENCOUNTER 2022-10-01 07:31 | Outpatient (CLI) | payer BC ==
[2022-10-01] MEDS ORDERED: LIDOCAINE-MPF 1% 5 ML VIAL ONE (08:13)
[2022-10-01] MEDS ORDERED: fentaNYL 100 MCG/2 ML VIAL ONE (08:16)
[2022-10-01] MEDS ORDERED: MIDAZOLAM 2 MG/2 ML VIAL ONE (08:16)
[2022-10-01] MEDS ORDERED: MIDAZOLAM 2 MG/2 ML VIAL IVP ONE (09:30)
[2022-10-01] MEDS ORDERED: LIDOCAINE-MPF 1% 5 ML VIAL SUBQ ONE (09:30)
[2022-10-01] MEDS ORDERED: fentaNYL 100 MCG/2 ML VIAL IVP ONE (09:30)
[2022-10-01] MEDS ORDERED: fentaNYL 100 MCG/2 ML VIAL IVP SCH (09:30)
[2022-10-01] MEDS ORDERED: LACTATED RINGERS 1,000 ML IV ONE (10:03)
--- NOTE | 2022-10-01 12:25 | XRAY Report ---
PROCEDURE: Post Thoracentesis 1V CXR INDICATIONS: POST LUNG BIOSPY TECHNIQUE: One view of the chest was acquired. COMPARISON: None. FINDINGS: Surgical changes and devices: None. Lungs and pleura: Patchy reticular opacities biopsy. No pneumothorax. Mediastinum: Mediastinal contours appear normal. Heart size is normal. Bones and chest wall: No suspicious bony lesions. Overlying soft tissues appear unremarkable. IMPRESSION: No pneumothorax. Patchy right upper lobe biopsy at site of biopsy representing mass with hemorrhage. Reviewed by: Anay Isabel MD on 10/01/2022 12:23 PM PST Approved by: Anay Isabel MD on 10/01/2022 12:23 PM PST Station ID: [id number]
[2022-10-01 13:58] VITALS: BP 150/80
--- NOTE | 2022-10-05 08:40 | XRAY Report ---
PROCEDURE: Post Thoracentesis 1V CXR INDICATIONS: POST LUNG BIOSPY TECHNIQUE: One view of the chest was acquired. COMPARISON: None. FINDINGS: Surgical changes and devices: None. Lungs and pleura: No pleural effusions or pneumothorax. Right upper lobe opacity is present at site of biopsy. Mediastinum: Mediastinal contours appear normal. Heart size is normal. Bones and chest wall: No suspicious bony lesions. Overlying soft tissues appear unremarkable. IMPRESSION: Right upper lobe opacity and site of biopsy representing small postbiopsy hemorrhage. No pneumothorax . Reviewed by: Anay Isabel MD on 10/05/2022 8:38 AM PDT Approved by: Anay Isabel MD on 10/05/2022 8:38 AM PDT Station ID: [id number]
--- NOTE | 2022-10-05 08:46 | CT Report ---
PROCEDURE: RT LUNG BX PERC Sedation analgesia for minutes. INDICATIONS: SPICULATED LUNG LESION TECHNIQUE: The indications, alternatives, benefits, risks, and possible complications of the procedure were comm unicated to the patient. Informed written consent from the patient was obtained and placed in the art. Continuous EKG and hemodynamic monitoring was started by trained personnel. For radiation dose reduction, the following was used: automated exposure control, adjustment of mA and/or kV according to patient size. The patient was brought to the CT suite and rn managed care spiral CT imaging was performed with localization g rid. The appropriate site for percutaneous access to the biopsy target was marked, was prepped and d raped sterilely, and was infused with local anaesthesia. Under CT guidance, a core biopsy trocar and needle set was advanced to the biopsy target, and specimen(s) were obtained. The trocar and needle were then removed, and the patient was sent for post-procedure monitoring. COMPARISON: 10 08/19/2022, CT chest 07/31/2022. FINDINGS: Biopsy site: Right upper lobe Needle: 20 gauge biopsy needle with introducer trocar. Number of passes: 4 Medications: 1% lidocaine for local anaesthesia. IV Fentanyl and Versed for conscious sedation for 30 minutes (see nursing record). Complications: None. IMPRESSION: Successful CT-guided biopsy of right upper lobe mass. Reviewed by: Anay Isabel MD on 10/05/2022 8:45 AM PDT Approved by: Anay Isabel MD on 10/05/2022 8:45 AM PDT Station ID: [id number]
== END 2022-10-01 07:32 | disposition home or self-care (01) ==
LOC: DI 07:31
PROVIDERS: ATTEND Surgery
DX: C34.11 Malignant neoplasm of upper lobe, right bronchus or lung (principal); J95.830 Postprocedural hemorrhage of a respiratory system organ or structure following a respiratory system procedure
CPT/HCPCS: 32408; J7120

== ENCOUNTER 2022-10-13 12:29 | Outpatient (CLI) | payer BC ==
--- NOTE | 2022-10-13 13:36 | XRAY Report ---
PROCEDURE: Hip w/Pelvis 2-3V LT INDICATIONS: HIP JOINT PAIN,LEFT TECHNIQUE: AP pelvis with lateral view(s) of the left hip(s). COMPARISON: CT pelvis 07/14/2022. FINDINGS: Bones: Postsurgical changes compatible with ORIF of left femur intertrochanteric fracture. Orthopedic hardware is in expected position and is intact. No lucencies identified at the bone hardware interfa ce. Chronic appearing left inferior pubic ramus fracture.. No suspicious bony lesions. Soft tissues: The visualized bowel gas pattern is normal. No suspicious soft tissue calcifications. IMPRESSION: Expected postsurgical change for right femur intertrochanteric fracture ORIF. No acute osseous lesion. If symptoms and/or clinical concern for pathology persists, further assessme nt with repeat plain film radiographs (7-10 days) or advanced imaging (CT, MR, bone scan) should be c onsidered. Reviewed by: Brianda Vila MD, PhD on 10/13/2022 1:35 PM PDT Approved by: Brianda Vila MD, PhD on 10/13/2022 1:35 PM PDT Station ID: [id number]
== END 2022-10-13 12:30 | disposition home or self-care (01) ==
LOC: DI 12:29
PROVIDERS: ATTEND Nurse Practitioner
DX: M25.552 Pain in left hip (principal)

== ENCOUNTER 2022-11-14 13:07 | Outpatient (CLI) | payer BC | END 2022-11-14 23:59 | disposition short-term general hospital (02) | LOC: EMS 13:07 | DX: R07.1 Chest pain on breathing (principal); R06.02 Shortness of breath; R14.0 Abdominal distension (gaseous) | CPT/HCPCS: A0425; A0427 ==

== ENCOUNTER 2022-12-17 08:37 | Outpatient (CLI) | payer BC ==
[2022-12-17 11:54] LABS: BASOPHILS # (AUTO) 0.1 10^3/uL (0.0-0.1); BASOPHILS % (AUTO) 1.3 %; EOSINOPHILS # (AUTO) 0.1 10^3/uL (0.0-0.7); EOSINOPHILS % (AUTO) 0.9 %; HCT - HEMATOCRIT 39.7 % (37.0-47.0); HGB - HEMOGLOBIN 12.7 g/dL (12.0-16.0); LYMPHOCYTES # (AUTO) 2.4 10^3/uL (1.5-3.5); LYMPHOCYTES % (AUTO) 24.7 %; MEAN CORPUSCULAR HEMOGLOBIN 31.4 pg (27.0-31.0); MEAN PLATELET VOLUME 8.8 fL (7.9-10.8); MONOCYTES # (AUTO) 0.9 10^3/uL (0.0-1.0); MONOCYTES % (AUTO) 8.9 %; NEUTROPHILS # (AUTO) 6.2 10^3/uL (1.5-6.6); NEUTROPHILS % (AUTO) 63.7 %; PLT - PLATELET COUNT 481 10^3/uL (130-450); RED BLOOD COUNT 4.05 10^6/uL (4.20-5.40); RED CELL DISTRIBUTION WIDTH 15.2 % (12.0-15.0); WHITE BLOOD COUNT 9.7 x10^3/uL (4.8-10.8)
[2022-12-17 12:11] LABS: ALBUMIN 4.4 g/dL (3.2-5.5); ALBUMIN/GLOBULIN RATIO 1.1 (1.0-2.2); BILIRUBIN,TOTAL 0.6 mg/dL (0.2-1.0); CALCIUM 9.4 mg/dL (8.5-10.3); CREATININE 0.5 mg/dL (0.4-1.0); POTASSIUM 4.3 mmol/L (3.5-5.0); TOTAL PROTEIN 8.4 g/dL (6.7-8.2)
== END 2022-12-17 08:38 | disposition home or self-care (01) ==
LOC: LAB.N 08:37
PROVIDERS: ATTEND Nurse Practitioner
DX: C80.1 Malignant (primary) neoplasm, unspecified (principal)
CPT/HCPCS: 36415; 80053; 85025

== ENCOUNTER 2023-01-29 07:21 | Outpatient (CLI) | payer BC ==
[2023-01-29 13:32] LABS: BILIRUBIN,TOTAL 0.7 mg/dL (0.2-1.0); CALCIUM 9.6 mg/dL (8.5-10.3); CREATININE 0.6 mg/dL (0.4-1.0); POTASSIUM 4.1 mmol/L (3.5-5.0); TOTAL PROTEIN 8.2 g/dL (6.7-8.2)
== END 2023-01-29 07:22 | disposition home or self-care (01) ==
LOC: LAB.N 07:21
PROVIDERS: ATTEND Nurse Practitioner
DX: E87.1 Hypo-osmolality and hyponatremia (principal); K74.60 Unspecified cirrhosis of liver
CPT/HCPCS: 36415; 80053

== ENCOUNTER 2023-02-23 16:03 | Emergency (ER) | payer BC ==
--- NOTE | 2023-02-23 16:38 | ED Physician Documentation ---
History of Present Illness - Stated complaint Stated Complaint: ABD PX - Chief complaint Chief Complaint: Abd Pain - Additonal information Additional information: 62-year-old female presents to the emergency department for evaluation of 3 days right-sided rib cage pain. States that she woke up with it. Denies any falls or trauma. She does have a history of COPD and when she coughs the pain is worse. Recently diagnosed with a left hip fracture has been undergoing aggressive physical therapy. Denies any fevers. No nausea or vomiting. No chest pain. No diarrhea or urinary symptoms. Patient does have past medical history to include COPD, alcohol abuse, chronic tobaccoism. She was diagnosed with a lung mass in July 2020 and did undergo biopsy and resection. She did not require chemotherapy or radiation Review of Systems Constitutional: denies: Fever, Chills Cardiac: reports: Other (right chest wall pain) Respiratory: reports: Cough. 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 : None HEENT: None Psych: Depression, Anxiety Musculoskeletal: Osteoporosis Derm: None - Past Surgical History Past Surgical History: Yes General: Colonoscopy, EGD Ortho: Hip replacement, Arthroscopic surgery, Other /MIRROR POLISHER: Hysterectomy HEENT: Tonsil/Adenoidectomy - Present Medications Home Medications: Ambulatory Orders Medication Instructions Recorded Confirmed Lactulose 15 ml PO DAILY #240 ml 08/03/22 02/23/23 Mirtazapine 7.5 mg PO DAILY 02/23/23 02/23/23 - Allergies Allergies/Adverse Reactions: Allergies Allergy/AdvReac Type Severity Reaction Status Date / Time Penicillins Allergy Mild Unknown Verified 02/23/23 16:11 morphine Allergy Hallucinati Verified 02/23/23 16:11 ons - Social History Does the pt smoke?: Yes Smoking Status: Current every day smoker Does the pt drink ETOH?: Yes Does the pt have substance abuse?: No - Immunizations Immunizations are current?: Yes - POLST Patient has POLST: No PD ED PE NORMAL - General General: Alert and oriented X 3, No acute distress. No: Well developed/nouris hed (thin cachetic appearance) - Cardiac Cardiac: RRR, No murmur, Other (Chest wall tenderness to palpation of the right lower posterior lateral and anterior rib wall without crepitus or obvious ecchymosis.) - Respiratory Respiratory: No respiratory distress. No: Clear bilaterally (Diffuse rhonchi and scattered expiratory wheeze.) - Abdomen Abdomen: Normal bowel sounds, Soft - Back Back: No CVA TTP - Derm Derm: Normal color, Warm and dry, No rash - Extremities Extremities: No deformity - Neuro Neuro: Alert and oriented X 3, instructional assistant 2-12 intact Eye Opening: Spontaneous Motor: Obeys Commands Verbal: Oriented GCS Score: 15 Results - Vitals Vitals: Vital Signs - 24 hr 02/23/23 02/23/23 02/23/23 16:05 16:35 18:18 Temperature 36.8 C Heart Rate 84 82 97 Respiratory 18 18 20 Rate Blood Pressure 155/81 H 157/83 H 150/101 H O2 Saturation 97 96 97 Oxygen O2 Source Room air - Labs Labs: Laboratory Tests 02/23/23 02/23/23 16:39 16:39 WBC 8.2 RBC 3.89 L Hgb 13.1 Hct 39.5 MCV 101.5 H MCH 33.7 H MCHC 33.2 RDW 16.2 H Plt Count 259 MPV 8.1 Neut # (Auto) 5.9 Lymph # (Auto) 1.5 [place] # (Auto) 0.7 Eos # (Auto) 0.0 Baso # (Auto) 0.1 Absolute Nucleated RBC 0.00 Nucleated RBC % 0.0 Sodium 130 L Potassium 4.4 Chloride 95 L Carbon Dioxide 25 Anion Gap 10.0 BUN 11 Creatinine 0.4 L Estimated GFR (MDRD) 162 Glucose 75 Calcium 9.7 Total Bilirubin 0.6 AST 23 ALT 16 Alkaline Phosphatase 131 H Total Protein 8.1 Albumin 4.3 Globulin 3.8 Albumin/Globulin Ratio 1.1 Lipase 22 - Rads (name of study) CT chest/abd/pelv wo Relevant Findings:: Final report received (New mild irregularity of the right posterior 11th rib. This could be posttraumatic in nature. Given prior history of malignancy, metastatic disease cannot be definitively excluded. Further evaluation with bone scan may be obtained on a nonemergent basis.) PD Medical Decision Making - ED course Complexity details: reviewed results, re-evaluated patient, considered differential, d/w patient ED course: 62-year-old female presents emergency department for evaluation of several days acute right posterior rib and chest wall discomfort. No falls or trauma. She does have a remote history of malignancy however. She is also quite thin and cachectic and malnourished. Initially an x-ray was obtained that did not show any obvious findings such as rib fracture, pneumonia or pneumothorax. Subsequently I did obtain CBC and electrolytes and per my interpretation no acute abnormalities of concern. She does have mild hyponatremia with a sodium of 130 that is essentially unchanged from baseline. Following the laboratory imaging CT of the chest abdomen pelvis without contrast was completed. The only finding of significance is that there is an irregularity of the right posterior 11th rib. This is in the location where she is uncomfortable. This could be an occult fracture however metastatic disease is not definitively excluded. The recommendation is for a bone scan on a nonemergent basis. I discussed the labs and CT imaging findings with the patient and her friend at the bedside. They will continue to follow with Gloria Otto. No appointment is scheduled at the end of this month. They will call the office to request a bone scan sooner. I did offer the patient a short prescription of opioids but she declined those today. In the interim I advised Salonpas/lidocaine patches as well as alternating doses of ibuprofen and Tylenol. The usual emergent return precautions for worsening symptoms was discussed Departure - Departure Disposition: 01 Home, Self Care Clinical Impression: Deformity of rib, Chest wall pain Condition: Stable Record reviewed to determine appropriate education?: Yes Follow-Up: Gloria Otto ARNP [Primary Care Provider] - Comments: Nichol you are seen today in the emergency department because for the last several days you have begun having pain in your right posterior rib wall. Your labs to day did not show any worrisome findings though you do have a mildly low but unchanged sodium level. Your chest x-ray showed no obvious concerns and subsequently CT of your chest abdomen pelvis was completed. The only finding of attention in these imaging was that of an irregularity of your right posterior 11th rib. This may be an occult fracture however because you have a previous history of cancer/malignancy we cannot definitively say that this is not due to cancer. It is important that you discuss this finding with your primary care provider. You should be referred for a bone scan. If at any point you find you are having worsening symptoms, develop fevers, have bloody sputum, any fainting episodes then please return immediately to the ER. In the interim I recommend that you use Salonpas/lidocaine patches for pain relief. You can continue to alternate doses of Tylenol and ibuprofen for discomfort. Forms: PCP List
[2023-02-23 16:44] LABS: BASOPHILS # (AUTO) 0.1 10^3/uL (0.0-0.1); BASOPHILS % (AUTO) 0.9 %; EOSINOPHILS % (AUTO) 0.2 %; HCT - HEMATOCRIT 39.5 % (37.0-47.0); HGB - HEMOGLOBIN 13.1 g/dL (12.0-16.0); LYMPHOCYTES # (AUTO) 1.5 10^3/uL (1.5-3.5); LYMPHOCYTES % (AUTO) 18.1 %; MEAN CORPUSCULAR HEMOGLOBIN 33.7 pg (27.0-31.0); MEAN CORPUSCULAR HGB CONC 33.2 g/dL (32.0-36.0); MEAN CORPUSCULAR VOLUME 101.5 fL (81.0-99.0); MEAN PLATELET VOLUME 8.1 fL (7.9-10.8); MONOCYTES # (AUTO) 0.7 10^3/uL (0.0-1.0); MONOCYTES % (AUTO) 8.1 %; NEUTROPHILS # (AUTO) 5.9 10^3/uL (1.5-6.6); NEUTROPHILS % (AUTO) 72.3 %; PLT - PLATELET COUNT 259 10^3/uL (130-450); RED BLOOD COUNT 3.89 10^6/uL (4.20-5.40); RED CELL DISTRIBUTION WIDTH 16.2 % (12.0-15.0); WHITE BLOOD COUNT 8.2 x10^3/uL (4.8-10.8)
--- NOTE | 2023-02-23 17:08 | XRAY Report ---
PROCEDURE: Chest 1 View X-Ray INDICATIONS: chest pain TECHNIQUE: One view of the chest was acquired. COMPARISON: PET scan 08/19/2022 FINDINGS: Surgical changes and devices: None. Lungs and pleura: No pleural effusions or pneumothorax. Lungs are clear. Mediastinum: Mediastinal contours appear normal. Heart size is normal. Bones and chest wall: No suspicious bony lesions. Overlying soft tissues appear unremarkable. IMPRESSION: No acute cardiopulmonary process. Reviewed by: Anay Isabel MD on 02/23/2023 5:07 PM PDT Approved by: Anay Isabel MD on 02/23/2023 5:07 PM PDT Station ID: [id number]
[2023-02-23 17:15] LABS: ALBUMIN 4.3 g/dL (3.2-5.5); ALBUMIN/GLOBULIN RATIO 1.1 (1.0-2.2); BILIRUBIN,TOTAL 0.6 mg/dL (0.2-1.0); CALCIUM 9.7 mg/dL (8.5-10.3); CREATININE 0.4 mg/dL (0.6-1.3); POTASSIUM 4.4 mmol/L (3.5-4.5); TOTAL PROTEIN 8.1 g/dL (6.4-8.9)
--- NOTE | 2023-02-23 18:07 | CT Report ---
PROCEDURE: CHEST WO INDICATIONS: rib wall pain TECHNIQUE: Noncontrast 1mm axial images were acquired from the pulmonary apices to the posterior costophrenic an gles. Axial 5 mm soft tissue kernel reconstructions were performed as well as 8 mm axial MIP and cor onal and sagittal 5 mm reformations. For radiation dose reduction, the following was used: automate d exposure control, adjustment of mA and/or kV according to patient size. COMPARISON: CT chest 07/22/2022. FINDINGS: Image quality: Excellent. Lungs and pleura: No consolidation. No pleural effusions. No pneumothorax. No suspicious pulmonary n odules which require follow up. Lungs are hyperinflated suggestive of COPD. Mediastinum: Heart size is normal. No pericardial effusion. No large vessel abnormality. No mediastin al adenopathy by size criteria. Chest wall and lower neck: Thyroid is unremarkable. No axillary or supraclavicular adenopathy by size . Bones: Slight irregularity of the 11th posterior right rib, new compared to prior exam. Upper Abdomen: Unremarkable. IMPRESSION: New mild irregularity of the right posterior 11th rib. This could be posttraumatic in nature. Recomme nd correlation of point tenderness as well as clinical history. Given prior history of malignancy, me tastatic disease cannot be definitively excluded. Further evaluation with bone scan may be obtained o n a nonemergent basis as clinically indicated. Reviewed by: Anay Isabel MD on 02/23/2023 6:06 PM PDT Approved by: Anay Isabel MD on 02/23/2023 6:06 PM PDT Station ID: [id number]
--- NOTE | 2023-02-23 18:10 | CT Report ---
PROCEDURE: ABDOMEN/PELVIS WO INDICATIONS: right flank pain TECHNIQUE: A CT scan of the abdomen and pelvis was performed without the use of intravenous contrast. Images we re recorded and evaluated at appropriate window settings. Reformats: coronal and sagittal. For radiat ion dose reduction, the following was used: automated exposure control, adjustment of mA and/or kV ac cording to patient size. COMPARISON: CT chest 02/23/2023, 07/31/2022, 07/14/2022 FINDINGS: Image quality: There is limited visualization of the pelvis secondary to artifact from hip arthroplas ty. Lung bases and heart: Unremarkable. Liver: No solid mass. Gallbladder and biliary tree: Unremarkable Spleen: No splenomegaly. Pancreas: No pancreatic ductal dilation. Adrenals: No adrenal nodule. Kidneys and ureters: No hydronephrosis. No renal cystic lesion which requires follow up. No solid mas s. Bowel and peritoneum: No bowel distension. No pathologic free fluid. Lymph nodes: No central or retroperitoneal adenopathy. Vessels: No infrarenal aortic aneurysm. PELVIS Reproductive organs: Unremarkable. Bladder: No wall thickness, accounting for underdistention. Pelvic lymph nodes: No pelvic adenopathy by size criteria. Bones: Mild irregularity of the right posterior 11th rib, new compared to 07/31/2022, 07/14/2022. Other: No significant ventral or inguinal hernia. IMPRESSION: New irregularity within the posterior right 11th rib compared to prior exams. This could be represent ative of prior trauma. Recommend correlation of point tenderness as well as clinical history. Given p rior history of malignancy, metastatic disease cannot be definitively excluded. Further evaluation fernando ne scan may be obtained on a nonemergent basis as clinically indicated. Reviewed by: Anay Isabel MD on 02/23/2023 6:08 PM PDT Approved by: Anay Isabel MD on 02/23/2023 6:08 PM PDT Station ID: [id number]
[2023-02-23 18:23] VITALS: BP 150/101
== END 2023-02-23 18:39 | disposition home or self-care (01) ==
LOC: ED 16:03
DX: M95.4 Acquired deformity of chest and rib (principal); R07.89 Other chest pain; J44.9 Chronic obstructive pulmonary disease, unspecified; F17.200 Nicotine dependence, unspecified, uncomplicated
CPT/HCPCS: 36415; 80053; 83690; 85025; 99283; 99284

== ENCOUNTER 2023-03-23 15:15 | Outpatient (CLI) | payer BC | END 2023-03-23 23:59 | disposition critical access hospital (66) | LOC: EMS 15:15 | DX: R10.9 Unspecified abdominal pain (principal); M54.6 Pain in thoracic spine | CPT/HCPCS: A0425; A0429 ==

== ENCOUNTER 2023-03-23 15:44 | Emergency (ER) | payer BC ==
[2023-03-23] MEDS ORDERED: HYDROmorphone 1 MG/ML CARPUJECT IVP STA (15:58)
--- NOTE | 2023-03-23 16:01 | ED Physician Documentation ---
History of Present Illness - Stated complaint Stated Complaint: R FLANK PX - Chief complaint Chief Complaint: Back Pain - Additonal information Additional information: 62-year-old female presents emergency department for evaluation of worsening right lateral posterior chest wall pain. Seen by myself at the beginning of February for similar. At that time imaging suggested a deformity of the left at the posterior rib. However malignancy could not be ruled out. At that time patient declined opioids. However she states that since this morning she has had intolerable pain. No fevers. No hemoptysis. 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 : None HEENT: None Psych: Depression, Anxiety Musculoskeletal: Osteoporosis Derm: None - Past Surgical History Past Surgical History: Yes General: Colonoscopy, EGD Ortho: Hip replacement, Arthroscopic surgery, 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: Hysterectomy HEENT: Tonsil/Adenoidectomy - Present Medications Home Medications: Ambulatory Orders Medication Instructions Recorded Confirmed Lactulose 15 ml PO DAILY #240 ml 08/03/22 02/23/23 Mirtazapine 7.5 mg PO DAILY 02/23/23 02/23/23 oxyCODONE [Roxicodone] 5 mg PO TID PRN #20 tablet 03/23/23 - Allergies Allergies/Adverse Reactions: Allergies Allergy/AdvReac Type Severity Reaction Status Date / Time Penicillins Allergy Mild Unknown Verified 03/23/23 15:48 morphine Allergy Hallucinati Verified 03/23/23 15:48 ons - Social History Does the pt smoke?: Yes Smoking Status: Current every day smoker Does the pt drink ETOH?: Yes Does the pt have substance abuse?: No - Immunizations Immunizations are current?: Yes - POLST Patient has POLST: No PD ED PE NORMAL - General General: Alert and oriented X 3, No acute distress, Well developed/nourished - HEENT HEENT: Atraumatic - Neck Neck: Supple, no meningeal sign - Cardiac Cardiac: RRR, No murmur - Abdomen Abdomen: Normal bowel sounds, Soft - Back Back: Other (Right lateral posterior rib wall pain. No crepitus ecchymosis noted.) - Derm Derm: Normal color, Warm and dry, No rash - Extremities Extremities: No deformity - Neuro Neuro: Alert and oriented X 3, hand i thermal cutter 2-12 intact Eye Opening: Spontaneous Motor: Obeys Commands Verbal: Oriented GCS Score: 15 Results - Vitals Vitals: Vital Signs - 24 hr 03/23/23 03/23/23 15:45 17:19 Temperature 36.1 C L Heart Rate 76 73 Respiratory 18 15 Rate Blood Pressure 176/101 H 192/93 H O2 Saturation 97 99 Oxygen O2 Source Room air - Labs Labs: Laboratory Tests 03/23/23 03/23/23 15:59 15:59 WBC 7.2 RBC 3.55 L Hgb 12.7 Hct 37.8 MCV 106.5 H MCH 35.8 H MCHC 33.6 RDW 13.5 Plt Count 258 MPV 8.3 Neut # (Auto) 5.1 Lymph # (Auto) 1.3 L [place] # (Auto) 0.6 Eos # (Auto) 0.0 Baso # (Auto) 0.1 Absolute Nucleated RBC 0.00 Nucleated RBC % 0.0 Sodium 129 L Potassium 4.3 Chloride 91 L Carbon Dioxide 23 Anion Gap 15.0 H BUN 8 Creatinine 0.6 Estimated GFR (MDRD) 102 Glucose 83 Calcium 9.5 Total Bilirubin 0.8 AST 27 ALT 17 Alkaline Phosphatase 133 H Total Protein 8.1 Albumin 4.6 Globulin 3.5 Albumin/Globulin Ratio 1.3 Lipase 31 - Rads (name of study) CT chest w Relevant Findings:: Final report received (Osteoblastic lesions involving L1-L3 vertebrae suspicious for metastatic disease. Vertebral compression fractures T9, T12 and L3 stable from 02/23/2023. T9 compression fracture new from July 2022. Partial right upper lobe lung resection. Right posterior T11 rib cortical regularity unchanged ) PD Medical Decision Making - ED course Complexity details: reviewed results, re-evaluated patient, d/w patient ED course: 62-year-old female presents emergency department for evaluation of acute pain in the right lateral posterior chest wall. Was seen for this similarly in the beginning of February by myself. At that time a CT of the abdomen showed a cortical irregularity of the right 11th rib. Patient has not yet been able to see her PCP but is scheduled to see them tomorrow. Today in the emergency department she again has pain that is persistent in this region as before. I did obtain CBC, electrolytes. Per my interpretation no significant anemia, leukocytosis. She does have an essentially unchanged mild hyponatremia with a sodium of 129. Unfortunately a CT of the chest completed with contrast does show osteoblastic lesions of multiple lumbar vertebrae. Given the patient's previous history of lung cancer status post wedge resection she is advised to have urgent referral to hematology oncology for further evaluation management and staging. Given the persistent pain a prescription for oxycodone has been sent to the patient's preferred pharmacy in [place]. The usual emergent return precautions worsening symptoms was discussed. Departure - Departure Disposition: 01 Home, Self Care Clinical Impression: Osteoblastic osteosarcoma Condition: Stable Prescriptions: oxyCODONE [Roxicodone] 5 mg PO TID PRN #20 tablet PRN Reason: Pain Comments: Nichol lucas are seen today because she had persistent pain in the right side of your ribs. The CT of your abdomen pelvis completed at the beginning of February showed an irregularity of your right 11th rib. Today a CT of the chest shows osteoblastic lesions of the lumbar vertebrae which is concerning for cancer or metastatic disease. When you see Gloria Otto tomorrow you should request urgent referral to hematology/oncology for further evaluation and management and staging of what appears to now be metastatic bone cancer. I have sent a prescription for limited amount of oxycodone to the [facility] in [place]. Return to the ER if you develop any new symptoms, have difficulty breathing, talking or have chest pain.
[2023-03-23 16:11] LABS: BASOPHILS # (AUTO) 0.1 10^3/uL (0.0-0.1); EOSINOPHILS % (AUTO) 0.4 %; HCT - HEMATOCRIT 37.8 % (37.0-47.0); HGB - HEMOGLOBIN 12.7 g/dL (12.0-16.0); LYMPHOCYTES # (AUTO) 1.3 10^3/uL (1.5-3.5); LYMPHOCYTES % (AUTO) 18.7 %; MEAN CORPUSCULAR HEMOGLOBIN 35.8 pg (27.0-31.0); MEAN CORPUSCULAR HGB CONC 33.6 g/dL (32.0-36.0); MEAN CORPUSCULAR VOLUME 106.5 fL (81.0-99.0); MEAN PLATELET VOLUME 8.3 fL (7.9-10.8); MONOCYTES # (AUTO) 0.6 10^3/uL (0.0-1.0); MONOCYTES % (AUTO) 8.4 %; NEUTROPHILS # (AUTO) 5.1 10^3/uL (1.5-6.6); NEUTROPHILS % (AUTO) 71.1 %; PLT - PLATELET COUNT 258 10^3/uL (130-450); RED BLOOD COUNT 3.55 10^6/uL (4.20-5.40); RED CELL DISTRIBUTION WIDTH 13.5 % (12.0-15.0); WHITE BLOOD COUNT 7.2 x10^3/uL (4.8-10.8)
[2023-03-23 16:28] LABS: ALBUMIN 4.6 g/dL (3.2-5.5); ALBUMIN/GLOBULIN RATIO 1.3 (1.0-2.2); BILIRUBIN,TOTAL 0.8 mg/dL (0.2-1.0); CALCIUM 9.5 mg/dL (8.5-10.3); CREATININE 0.6 mg/dL (0.4-1.0); POTASSIUM 4.3 mmol/L (3.5-5.0); TOTAL PROTEIN 8.1 g/dL (6.7-8.2)
[2023-03-23] MEDS ORDERED: iohexoL-300 100 ML VIAL IVP ONE (16:48)
[2023-03-23] MEDS ORDERED: ONDANSETRON 4 MG/2 ML VIAL IVP STA (17:15)
[2023-03-23] MEDS ORDERED: oxyCODONE 5 MG TABLET PO STA (17:22)
--- NOTE | 2023-03-23 18:12 | CT Report ---
PROCEDURE: CT chest with contrast INDICATIONS: right lateral rib pain; ? ca vs fracture rib CONTRAST: 100mL Omni 300 TECHNIQUE: After the administration of intravenous contrast, 1 mm axial images were acquired from the pulmonary apices through the posterior costophrenic angles. Axial 5 mm soft tissue kernel reconstructions were performed as well as 8 mm axial MIP and coronal and sagittal 5 mm reformations. For radiation dose reduction, the following was used: automated exposure control, adjustment of mA and/or kV according to patient size. COMPARISON: 02/23/2023 FINDINGS: Image quality: Excellent. Lungs and pleura: Right upper lobe partial lobectomy is stable. Emphysematous changes noted in the le ft upper lung spiculated nodules from the prior exam are no longer present. No pleural effusions. No pneumothorax. No new nodules. Mediastinum: Heart size is normal. No pericardial effusion. No large vessel abnormality. No mediastin al adenopathy by size criteria. Chest wall and lower neck: Thyroid is unremarkable. No axillary or supraclavicular adenopathy by size . Bones: Right posterior 11th rib cortical irregularity is again noted, similar prior exam. Additionall y, there are osteoblastic lesions involving the L1, L2 and L3 vertebral bodies as well as a wedge-sha ped compression fractures at L3, T12 and T9, similar to the most recent prior exam. T9 compression fr acture is new from 07/31/2022 Upper Abdomen: Unremarkable. IMPRESSION: 1. Osteoblastic lesions involving the L1, L2 and L3 vertebral bodies, suspicious for metastatic disea se. Consider follow-up bone scan or PET/CT. 2. Vertebral compression fractures at T9, T12 and L3, stable from 02/23/2023. T9 compression fracture i s new from 07/31/2022. 3. Partial right upper lobe lung resection. Stable left upper lobe pulmonary emphysema. No new nodule 4. Right posterior T11 rib cortical regularity, unchanged in prior exam Reviewed by: Rudi Sprague MD on 03/23/2023 5:11 PM AKDT Approved by: Rudi Sprague MD on 03/23/2023 5:11 PM AKDT Station ID: [id number]
[2023-03-23] MEDS ORDERED: ONDANSETRON ODT 4 MG TABLET TL STA (19:01)
[2023-03-23 19:05] VITALS: BP 162/97; O2SAT 97
[2023-03-23] MEDS ORDERED: ONDANSETRON ODT 4 MG Prepack 2 TL PRN (19:21)
[2023-03-23] MEDS ORDERED: oxyCODONE/ACET 5/325 Prepack 4 PO STA (19:21)
== END 2023-03-23 19:44 | disposition home or self-care (01) ==
LOC: ED 15:44
DX: C41.9 Malignant neoplasm of bone and articular cartilage, unspecified (principal); F17.200 Nicotine dependence, unspecified, uncomplicated
CPT/HCPCS: 36415; 71260; 80053; 83690; 85025; 96374; 96375; 99284; A9270; J1170; Q0162; Q9967

== ENCOUNTER 2023-03-31 08:21 | Outpatient (CLI) | payer BC | END 2023-03-31 23:59 | disposition critical access hospital (66) | LOC: EMS 08:21 | DX: M54.9 Dorsalgia, unspecified (principal) | CPT/HCPCS: A0425; A0429 ==

== ENCOUNTER 2023-03-31 08:43 | Emergency (ER) | payer BC ==
--- NOTE | 2023-03-31 08:53 | ED Physician Documentation ---
PD HPI BACK PAIN - Stated complaint Stated Complaint: BACK PX - Chief complaint Chief Complaint: Back Pain - History obtained from History obtained from: Patient, EMS - History of Present Illness Timing - onset: How many weeks ago (2-3) Timing - duration: Weeks Timing - details: Abrupt onset, Still present Location: Mid, Lower Quality: Pain, Sharp Associated symptoms: No: Fever, Weakness, Numbness, Incontinent of urine Improves with: No: Meds (oxycodone was not helping the pain and made her feeling strange.) Worsened by: Movement Contributing factors: Cancer (rior lung cancer, and had ER visit [address] showing likely pathologic fractures L1/L2/L3. Has appt with PMD this coming week and referring back to Oncology.). 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 : None HEENT: None Psych: Depression, Anxiety Musculoskeletal: Osteoporosis Derm: None - Past Surgical History Past Surgical History: Yes General: Colonoscopy, EGD Ortho: Hip replacement, Arthroscopic surgery, Other /SHIRRING MACHINE OPERATOR: Hysterectomy HEENT: Tonsil/Adenoidectomy - Present Medications Home Medications: Ambulatory Orders Medication Instructions Recorded Confirmed Lactulose 15 ml PO DAILY #240 ml 08/03/22 03/31/23 Mirtazapine 7.5 mg PO DAILY 02/23/23 03/31/23 Ondansetron Odt [Zofran] 4 mg TL Q6H PRN #10 tablet 03/23/23 03/31/23 oxyCODONE [Roxicodone] 5 mg PO TID PRN #20 tablet 03/23/23 03/31/23 Docusate Sodium 100Mg Capsule 100 mg PO DAILY #20 cap 03/31/23 [Colace 100Mg Capsule] HYDROmorphone [Dilaudid] 2 mg PO Q6H PRN #20 tablet 03/31/23 fentaNYL 12 MCG PATCH [Duragesic 12 mcg TOP Q3D #5 patch 03/31/23 12mcg patch] HYDROmorphone [Dilaudid] 2 mg PO Q6H #20 tablet 04/01/23 Naloxone HCl Nasal [Narcan Nasal] 1 kit ELVIS ONCE PRN #1 kit 04/01/23 - Allergies Allergies/Adverse Reactions: Allergies Allergy/AdvReac Type Severity Reaction Status Date / Time Penicillins Allergy Mild Unknown Verified 03/31/23 08:51 morphine Allergy Hallucinati Verified 03/31/23 08:51 ons - Social History Does the pt smoke?: Yes Smoking Status: Current every day smoker Does the pt drink ETOH?: Yes Does the pt have substance abuse?: No - Immunizations Immunizations are current?: Yes - POLST Patient has POLST: No PD ED PE NORMAL - Vitals Vital signs reviewed: Yes - General General: Alert and oriented X 3, Well developed/nourished, Other (guarded movement of back. lying still.) - Cardiac Cardiac: RRR - Respiratory Respiratory: Clear bilaterally - Abdomen Abdomen: Soft, Non tender - Derm Derm: Normal color, Warm and dry - Extremities Extremities: No edema, No calf tenderness / cord - Neuro Neuro: Alert and oriented X 3, No motor deficit, No sensory deficit Results - Vitals Vitals: Oxygen O2 Source Room air - Labs Labs: Laboratory Tests 03/31/23 09:12 Sodium 129 L Potassium 4.2 Chloride 94 L Carbon Dioxide 27 Anion Gap 8.0 BUN 4 L Creatinine 0.4 L Estimated GFR (MDRD) 162 Glucose 97 Calcium 9.9 Total Bilirubin 0.5 AST 16 ALT 10 Alkaline Phosphatase 133 H Total Protein 7.5 Albumin 4.1 Globulin 3.4 Albumin/Globulin Ratio 1.2 Lipase 7 L PD Medical Decision Making - ED course Complexity details: reviewed old records (viewed CT report from 03/22/23 showing vertebral fractures with apparent met disease.), re-evaluated patient (she states pain is better with IV dilaudid and toradol. Can Rx this orally instead to see if better. To replace the oxycodone. Can add baseline pain meds with fentanyl patch low dose as well. Sdd NSAIDs.) Social Determinants of Health: SW talked with her and pt wants to head home. Given info re home aides. Pt wiling to try TLSO brace. Departure - Departure Disposition: 01 Home, Self Care Clinical Impression: Compression fracture, Intractable back pain Back pain, acute Qualifiers: Back pain location: thoracic back pain Back pain laterality: bilateral Qualified Code(s): M54.6 - Pain in thoracic spine Condition: Stable Record reviewed to determine appropriate education?: Yes Instructions: ED Fx Comp Vertebral Prescriptions: Docusate Sodium 100Mg Capsule [Colace 100Mg Capsule] 100 mg PO DAILY #20 cap HYDROmorphone [Dilaudid] 2 mg PO Q6H PRN #20 tablet PRN Reason: Pain 5-7 fentaNYL 12 MCG PATCH [Duragesic 12mcg patch] 12 mcg TOP Q3D #5 patch Comments: You did have vertebral compression fractures seen on your CT scan from last week. This I presume is a source of your back pain. We can change to a long- acting pain medicine, fentanyl patch and a different short acting pain medicine (oral Dilaudid) and see if that works better than the oxycodone has been. You can use the thoracolumbar brace when up and around and see if that provides better support for less pain. Activity as tolerated. Follow-up with your primary care and referral to oncology. I sent your prescriptions to your preferred pharmacy. I am prescribing a short course of narcotic pain medication for you. These are potentially dangerous and addictive medications that should be used carefully. These medications may constipate you. Take an fook-rjh-hqqyfro stool softener such as docusate twice daily with plenty of water while taking these medications. If you go 24 hours without a bowel movement, take gdca-mgc-aadzzqs MiraLAX, per package instructions. Do not drink or drive while taking these medications. If you received narcotic or sedating medications while in the emergency department do not drive for 24 hours. Store this medication in a safe, secure place and out of reach of children. It is a violation of federal law to give or sell this medication to another person or to use in a manner other than prescribed. The ED will not refill narcotic prescriptions, including prescriptions lost or stolen. You can dispose of unwanted medications at the [facility]'s office or at several pharmacies such as [facility]. Discharge Date/Time: 03/31/23 13:20
[2023-03-31] MEDS ORDERED: HYDROmorphone 1 MG/ML CARPUJECT IVP STA ×2 (08:57→09:39)
[2023-03-31] MEDS ORDERED: KETOROLAC 15 MG/ML VIAL IVP STA (08:57)
[2023-03-31 09:33] LABS: ALBUMIN 4.1 g/dL (3.2-5.5); ALBUMIN/GLOBULIN RATIO 1.2 (1.0-2.2); BILIRUBIN,TOTAL 0.5 mg/dL (0.2-1.0); CALCIUM 9.9 mg/dL (8.5-10.3); CREATININE 0.4 mg/dL (0.6-1.3); POTASSIUM 4.2 mmol/L (3.5-4.5); TOTAL PROTEIN 7.5 g/dL (6.4-8.9)
[2023-03-31 11:11] VITALS: BP 136/76; O2SAT 100
[2023-03-31] MEDS ORDERED: fentaNYL 12 MCG PATCH TOP STA (12:21)
--- NOTE | 2023-04-01 13:55 | ED Physician Documentation ---
ED Addendum - Addendum Addendum: 04/01/23 13:54 I took a call initially from the son, he is in [place] but planning to come back In a couple of days. The patient had gone to [facility] and they would not fill the Dilaudid because she had oxycodone. The oxycodone was not working for her and it sounds like the pharmacist was not aware of the diagnosis of widely metastatic bone cancer pain. I spoke with the patient as well and she will dispose of the oxycodone and I called [facility] to straighten this out. 04/01/23 14:07 I called and spoke with pharmacist at [facility] and I will write a new prescription for Dilaudid 2 mg every 6 #20 and the pharmacist requested a prescription for nasal Narcan which is not unreasonable.
== END 2023-03-31 13:20 | disposition home or self-care (01) ==
LOC: EDUNIT# → ED 08:43
DX: M48.50XA Collapsed vertebra, not elsewhere classified, site unspecified, initial encounter for fracture (principal); F17.200 Nicotine dependence, unspecified, uncomplicated
CPT/HCPCS: 36415; 80053; 83690; 96374; 96375; 96376; 99284; A9270; J1170

== ENCOUNTER 2023-07-08 12:02 | Outpatient (CLI) | payer BC ==
[2023-07-08 18:00] LABS: BASOPHILS % (AUTO) 0.6 %; EOSINOPHILS % (AUTO) 0.3 %; HCT - HEMATOCRIT 37.7 % (37.0-47.0); HGB - HEMOGLOBIN 12.8 g/dL (12.0-16.0); LYMPHOCYTES # (AUTO) 1.5 10^3/uL (1.5-3.5); MEAN CORPUSCULAR HEMOGLOBIN 36.6 pg (27.0-31.0); MEAN CORPUSCULAR VOLUME 107.7 fL (81.0-99.0); MEAN PLATELET VOLUME 9.8 fL (7.9-10.8); MONOCYTES # (AUTO) 0.5 10^3/uL (0.0-1.0); MONOCYTES % (AUTO) 7.9 %; NEUTROPHILS # (AUTO) 4.7 10^3/uL (1.5-6.6); NEUTROPHILS % (AUTO) 68.8 %; NRBC ABSOLUTE COUNT (AUTO) 0.02 x10^3/uL; NUCLEATED RED BLOOD CELLS AUTO 0.3 /100WBC; PLT - PLATELET COUNT 157 10^3/uL (130-450); RED CELL DISTRIBUTION WIDTH 16.6 % (12.0-15.0); WHITE BLOOD COUNT 6.9 x10^3/uL (4.8-10.8)
[2023-07-08 18:27] LABS: ALBUMIN 4.7 g/dL (3.2-5.5); ALBUMIN/GLOBULIN RATIO 1.4 (1.0-2.2); BILIRUBIN,TOTAL 0.4 mg/dL (0.2-1.0); CALCIUM 9.9 mg/dL (8.5-10.3); CREATININE 0.5 mg/dL (0.6-1.3); TOTAL PROTEIN 8.1 g/dL (6.4-8.9)
[2023-07-08 18:46] LABS: THYROID STIMULATING HORMONE 0.7 uIU/mL (0.34-5.60)
[2023-07-08 18:50] LABS: FERRITIN 117.9 ng/mL (11.0-306.8)
== END 2023-07-08 12:03 | disposition home or self-care (01) ==
LOC: LAB.N 12:02
PROVIDERS: ATTEND Nurse Practitioner
DX: K74.60 Unspecified cirrhosis of liver (principal); D64.9 Anemia, unspecified; R53.83 Other fatigue
CPT/HCPCS: 36415; 80053; 82607; 82728; 83540; 84443; 84466; 85025

== ENCOUNTER 2023-07-23 10:24 | Emergency (ER) | payer BC ==
--- NOTE | 2023-07-23 11:22 | ED Physician Documentation ---
PD HPI LOWER EXT INJURY - Stated complaint Stated Complaint: GLF/RT KNEE PX - Chief complaint Chief Complaint: Ext Problem - History obtained from History obtained from: Patient - History of Present Illness PD HPI LOW EXT INJURY LOCATION: Right, Knee, Toe Type of injury: Fall (tripped on slippers and fell forward onto knees, with pain particularly right anterior knee and also caught toe with pain and bruising of it.) Where injury occurred: Home Timing - onset: How many weeks ago (1) Timing - duration: Weeks (1) Timing - details: Abrupt onset, Still present (had more bruising of the knee initially with swelling that has gone down. Still painful with walking and pivoting. Not as bad with just standing.) Improved by: Rest Worsened by: Moving, Other (pushing off part of gait more than just standing. Has been walking painfully on right leg.) Associated symptoms: Swelling. 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 : None HEENT: None Psych: Depression, Anxiety Musculoskeletal: Osteoporosis Derm: None - Past Surgical History Past Surgical History: Yes General: Colonoscopy, EGD Ortho: Hip replacement, Arthroscopic surgery, Other /BINDING 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: Hysterectomy HEENT: Tonsil/Adenoidectomy - Present Medications Home Medications: Ambulatory Orders Medication Instructions Recorded Confirmed Lactulose 15 ml PO DAILY #240 ml 08/03/22 05/18/23 Mirtazapine 7.5 mg PO DAILY 02/23/23 05/18/23 Acetaminophen [Aphen] 07/23/23 Gabapentin 07/23/23 - Allergies Allergies/Adverse Reactions: Allergies Allergy/AdvReac Type Severity Reaction Status Date / Time Penicillins Allergy Mild Unknown Verified 07/23/23 10:48 morphine Allergy Hallucinati Verified 07/23/23 10:48 ons - Social History Does the pt smoke?: No Smoking Status: Former smoker Does the pt drink ETOH?: Yes Does the pt have substance abuse?: No - Immunizations Immunizations are current?: Yes - POLST Patient has POLST: No PD ED PE NORMAL - Vitals Vital signs reviewed: Yes - General General: Alert and oriented X 3, No acute distress, Well developed/nourished - Derm Derm: Normal color, Warm and dry - Extremities Extremities: Other (great toe right with bruising and tender proximal phalanx area. MTP with good passive ROM. normal sensation. Right knee with tednerness lateral tibial area. Not tender at patella. Cruiate and collateral testing without laxity. No pain at ligament areas but causes some pain lateral tibia area. no eff) - Neuro Neuro: Alert and oriented X 3, No motor deficit, No sensory deficit, Normal speech Results - Vitals Vitals: Vital Signs - 24 hr 07/23/23 07/23/23 10:44 15:35 Temperature 36.8 C 36.5 C Heart Rate 78 72 Respiratory 16 16 Rate Blood Pressure 143/84 H 130/80 O2 Saturation 96 98 Oxygen O2 Source Room air - Rads (name of study) right knee Relevant Findings:: Prelim report reviewed (arthritic changes, irregularlity lateral plateau. COnsider fx. recommend CT.), EMP independent interpretation of test (mainly arthritic changes, but refer to radiology report for concern of plateau fx. ) knee CT scan Relevant Findings:: Prelim report reviewed, EMP independent interpretation of test (lateral plateau fracture with minimal 1 mm depression. ) right toe xray Relevant Findings:: Prelim report reviewed, EMP independent interpretation of test (arthritic changes, no fracture) PD Medical Decision Making - ED course Complexity details: reviewed results (knee xray with arthritic changes. Possible plateau irregularity. Rec CT. This is pending. Toe with arthritic changes, no fx. ), considered differential (She had fallen onto her knee with swelling initially and now still some bruising. Pain with extension and weightbearing. No pain or laxity with cruciate or collateral testing though it does hurt the anterior tibia. X-ray showed arthritic changes. Radiology report suggests ? plateau fx, rec CT.), d/w patient, d/w beauty sales consultant (Dr. Berry ortho - advises knee brace (full immobilizer or hinged brace) along with partial to no weight (sme bianka bearing is okay since is a week old). ) Social Determinants of Health: she does have a walker at home. She feels she would be off balance with crutches and not use them well and feel more at risk of falling than with walker. Dr. Berry had said pt was okay with some partial/light weight bearing and knee brace, so walker sounds okay instead of crutches. To follow up iwth ortho in 7-10 days for eval of healing. Departure - Departure Disposition: 01 Home, Self Care Clinical Impression: Tibial plateau fracture, right Condition: Stable Record reviewed to determine appropriate education?: Yes Instructions: ED Fx Knee Follow-Up: Gloria Otto ARNP [Primary Care Provider] - [facility] [Provider Group] Comments: There is arthritic changes within your knee. On the CT scan however there is also a minimally/nondisplaced plateau fracture on the lateral side. This would be accounting for the pain with weightbearing in that area. I talked with our orthopedist on-call who said this would be treated conse rvatively with a knee immobilizer and partial to no weightbearing with either a walker or crutches. Avoid prolonged standing or walking on it for at least the next week to week and a half to allow initial bone callus formation so it stays more in place. The orthopedist did suggest following up in the next week to week and a half from this time. I would suggest some regular anti-inflammatory such as ibuprofen or naproxen 2-3 jjzg-bky-ptgnofw tablets 3 times daily with food for the next 7 to 10 days until follow-up. To that add Tylenol 500 to 650 mg to 3 times daily if needed for added pain. Use just small amounts of the Tylenol as recommended by your primary care so less effect on your liver. This will be about a 6-week healing process for this. But again follow-up with orthopedics in the next 7 to 10 days for recheck to ensure its healing and the proper progression. Call today or for an appointment time. You do not need to sleep or rest with the knee brace per se though it may end up feel more comfortable. Forms: PCP List Discharge Date/Time: 07/23/23 15:35
--- NOTE | 2023-07-23 11:40 | XRAY Report ---
PROCEDURE: Knee 4+V RT INDICATIONS: Trauma TECHNIQUE: 4 views of the knee(s) were acquired. COMPARISON: Right knee radiograph on April 18, 2021. FINDINGS: Bones: Cortical irregularity at the lateral tibial plateau on AP is suspicious for an intra-articula r minimally displaced plateau fracture. No suspicious bony lesions. Diffuse osseous demineralization . Soft tissues: Small knee joint effusion. No suspicious soft tissue calcifications or masses. IMPRESSION: 1.Cortical irregularity at the lateral tibial plateau on AP is suspicious for an intra-articular mini kemi displaced plateau fracture. Recommend a CT of the right knee without contrast for further evalu ation. 2.Small suprapatellar joint effusion. 3.Diffuse osseous demineralization. Reviewed by: Jessica Martin MD on 07/23/2023 11:39 AM PST Approved by: Jessica Martin MD on 07/23/2023 11:39 AM PST Station ID: [id number]
--- NOTE | 2023-07-23 12:49 | XRAY Report ---
PROCEDURE: Toe(s) RT INDICATIONS: great toe injury TECHNIQUE: 3 views of the first toe(s) acquired. COMPARISON: Right foot radiograph on November 07, 2015. FINDINGS: Bones: Diffuse osseous demineralization limits sensitivity for subtle nondisplaced fracture. Within t hese limitations, no acute fracture or dislocation. Mild first MTP joint space narrowing, similar to prior dated November 07, 2015. No suspicious bony lesions. Soft tissues: No suspicious soft tissue densities. IMPRESSION: 1.No acute bony abnormality. If there is high clinical suspicion for a radiographically occult fractu re, consider repeat imaging in 7-10 days versus cross-sectional imaging. 2.Mild first MTP joint osteoarthritis. Reviewed by: Jessica Martin MD on 07/23/2023 12:48 PM PST Approved by: Jessica Martin MD on 07/23/2023 12:48 PM PST Station ID: [id number]
--- NOTE | 2023-07-23 15:05 | CT Report ---
PROCEDURE: LOWER EXTREMITY WO - RT INDICATIONS: fall to knee; xray with lateral plateau irregular TECHNIQUE: Noncontrast 3-mm axial sections acquired from the distal tibial shaft to the talar dome, with coronal and sagittal reformats. For radiation dose reduction, the following was used: automated exposure c ontrol, adjustment of mA and/or kV according to patient size. COMPARISON: Right knee radiograph on July 23, 2023. FINDINGS: Image quality: Excellent. Bones: Acute lateral tibial plateau fracture with no articular depression (2/174, 5/46). Diffuse oss eous demineralization. Soft tissues: Small suprapatellar joint effusion. Vascular calcifications. Impression: Acute lateral tibial plateau fracture with no articular depression (Schatzker type I). Reviewed by: Jessica Martin MD on 07/23/2023 3:04 PM PST Approved by: Jessica Martin MD on 07/23/2023 3:04 PM PST Station ID: [id number]
[2023-07-23 15:44] VITALS: BP 130/80; O2SAT 98
== END 2023-07-23 15:35 | disposition home or self-care (01) ==
LOC: ED 10:24
DX: S90.111A Contusion of right great toe without damage to nail, initial encounter (principal); S80.01XA Contusion of right knee, initial encounter; S82.141A Displaced bicondylar fracture of right tibia, initial encounter for closed fracture; W01.0XXA Fall on same level from slipping, tripping and stumbling without subsequent striking against object, initial encounter; Y92.009 Unspecified place in unspecified non-institutional (private) residence as the place of occurrence of the external cause; M17.11 Unilateral primary osteoarthritis, right knee; Z87.891 Personal history of nicotine dependence
CPT/HCPCS: 99283

== ENCOUNTER 2023-10-05 07:25 | Outpatient (CLI) | payer OTHER | END 2023-10-05 07:26 | disposition critical access hospital (66) | LOC: EMS 07:25 | DX: R11.2 Nausea with vomiting, unspecified (principal); R19.7 Diarrhea, unspecified; R25.1 Tremor, unspecified; F10.90 Alcohol use, unspecified, uncomplicated | CPT/HCPCS: A0425; A0427 ==

== ENCOUNTER 2023-10-05 07:43 | Emergency (ER) | payer OTHER ==
--- NOTE | 2023-10-05 07:56 | ED Physician Documentation ---
History of Present Illness - Stated complaint Stated Complaint: N/V/D ETOH - History obtained from History obtained from: Patient, EMS - Additonal information Additional information: Patient is a 63-year-old female with a history of alcohol abuse presenting for evaluation of 2 days of nausea, vomiting and diarrhea. Patient states that yesterday she took a dose of naltrexone which she states is new for her and then started feeling nauseous and having vomiting. She did have some alcohol yesterday afternoon but has not been able to get her nausea, vomiting and diarrhea under control. Patient states that she has some element of chronic diarrhea but this seems more than normal. She states that she has not been able to keep much down in the last 2 days and this morning has mostly been dry heaving. She is wanting to stop drinking. Denies dizziness, fevers, chest pain, shortness of air, abdominal pain. No nataly blood in emesis or stools. Does not take a blood thinner. Review of Systems Constitutional: denies: Fever Cardiac: denies: Chest pain / pressure Respiratory: denies: Dyspnea GI: reports: Nausea, Vomiting, Diarrhea. 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 : None HEENT: None Psych: Depression, Anxiety Musculoskeletal: Osteoporosis Derm: None - Past Surgical History Past Surgical History: Yes General: Colonoscopy, EGD Ortho: Hip replacement, Arthroscopic surgery, Other /CABLE WORKER HELPER: Hysterectomy HEENT: Tonsil/Adenoidectomy - Present Medications Home Medications: Ambulatory Orders Medication Instructions Recorded Confirmed Lactulose 15 ml PO DAILY #240 ml 08/03/22 05/18/23 Mirtazapine 7.5 mg PO DAILY 02/23/23 05/18/23 Acetaminophen [Aphen] 07/23/23 Gabapentin 07/23/23 LORazepam [Ativan] 1 mg PO TID PRN #12 tablet 10/05/23 Ondansetron Odt [Zofran] 4 mg TL Q6H PRN #10 tablet 10/05/23 - Allergies Allergies/Adverse Reactions: Allergies Allergy/AdvReac Type Severity Reaction Status Date / Time Penicillins Allergy Mild Rash Verified 10/05/23 08:03 morphine Allergy Hallucinati Verified 10/05/23 08:03 ons - Social History Does the pt smoke?: No Smoking Status: Former smoker Does the pt drink ETOH?: Yes Does the pt have substance abuse?: No - Immunizations Immunizations are current?: Yes - POLST Patient has POLST: No PD ED PE NORMAL - General General: Alert and oriented X 3, No acute distress, Well developed/nourished - HEENT HEENT: Atraumatic, Moist mucous membranes, Pharynx benign - Neck Neck: Supple, no meningeal sign - Cardiac Cardiac: RRR, Strong equal pulses - Respiratory Respiratory: No respiratory distress, Clear bilaterally - Abdomen Abdomen: Normal bowel sounds, Soft, Non tender, Non distended - Rectal Rectal: Other (Chaperoned by Cortez, dark-colored stools, no nataly blood, no tenderness) - Derm Derm: Warm and dry - Extremities Extremities: Other (Appears tremulous) - Neuro Neuro: Alert and oriented X 3, No motor deficit, Normal speech Results - Vitals Vitals: Vital Signs - 24 hr 10/05/23 10/05/23 10/05/23 07:57 10:02 11:48 Temperature 36.7 C Heart Rate 103 H 101 H 94 Respiratory 18 18 18 Rate Blood Pressure 116/61 129/84 H 127/100 H O2 Saturation 96 97 100 10/05/23 10/05/23 14:11 15:10 Temperature Heart Rate 94 99 Respiratory 17 18 Rate Blood Pressure 145/97 H 144/92 H O2 Saturation 99 100 Oxygen O2 Source Room air - Labs Labs: Microbiology 10/05/23 08:42 Occult Blood - Final Stool Laboratory Tests 10/05/23 10/05/23 10/05/23 07:55 07:55 08:56 WBC 8.7 RBC 2.52 L Hgb 9.4 L Hct 28.0 L MCV 111.1 H MCH 37.3 H MCHC 33.6 RDW 12.6 Plt Count 179 MPV 9.6 Neut # (Auto) 7.4 H Lymph # (Auto) 0.7 L [place] # (Auto) 0.5 Eos # (Auto) 0.0 Baso # (Auto) 0.1 Absolute Nucleated RBC 0.00 Band Neuts % (Manual) Not Reportable Abnorm Lymph % (Manual) Not Reportable Nucleated RBC % 0.0 Neutrophils # (Manual) Not Reportable Lymphocytes # (Manual) Not Reportable Monocytes # (Manual) Not Reportable Eosinophils # (Manual) Not Reportable Basophils # (Manual) Not Reportable Differential Comment MANUAL=AUTO DIFF Platelet Estimate NORMAL (130-450,000) Platelet Morphology NORMAL APPEARANCE RBC Morph Micro Appear 2+ STOMATOCYTES Sodium 131 L Potassium 3.9 Chloride 96 L Carbon Dioxide 24 Anion Gap 11.0 BUN 8 Creatinine 0.5 L Estimated GFR (MDRD) 125 Glucose 112 H Calcium 9.4 Total Bilirubin 0.6 AST 60 H ALT 39 Alkaline Phosphatase 136 H Total Protein 7.2 Albumin 4.1 Globulin 3.1 Albumin/Globulin Ratio 1.3 Lipase 42 Urine Color DARK YELLOW Urine Clarity CLEAR Urine pH 7.5 Ur Specific [place] 1.015 Urine Protein NEGATIVE Urine Glucose (UA) NEGATIVE Urine Ketones 15 H Urine Occult Blood TRACE-INTA Urine Nitrite NEGATIVE Urine Bilirubin NEGATIVE Urine Urobilinogen 0.2 (NORMAL) Ur Leukocyte Esterase NEGATIVE Ur Microscopic Review NOT INDICATED Urine Culture Comments NOT INDICATED Ethyl Alcohol < 10.0 PD Medical Decision Making - ED course Complexity details: reviewed results, d/w patient ED course: Patient is a 63-year-old female presenting for evaluation of nausea, vomiting and diarrhea. She does admit to heavy alcohol use. Labs obtained including CBC and chemistries. Hemoglobin is low at 9.4 which is a drop from prior labs. Has reported some recent dark stools have improved. Hemoccult is negative. No signs of ongoing bleeding. She has had prior upper and lower endoscopies. She is feeling better here with IV fluids, antiemetics and Ativan for alcohol withdrawal. She was cleared medically. She was evaluated by social work and declines inpatient treatment at this time for alcohol detox. She is wanting to try and quit at home and so was given a prescription for Ativan as well as Zofran. Symptoms controlled here with 1 dose of Ativan. She does understand the importance of close follow-up with her primary care provider regarding her anemia and alcohol use and also instructed on concerning symptoms to return for. 0848 - Hemoglobin is 9.4 which is a significant drop from prior labs. Patient does report that stools have been dark looking. Rectal exam performed with Cortez as desk representative. Hemoccult sent. Patient has had prior upper and lower endoscopy but states that is been several years and is unsure of any abnormal results. Departure - Departure Disposition: 01 Home, Self Care Clinical Impression: Alcohol withdrawal, Anemia Condition: Stable Instructions: ED Withdrawal Alcohol, ED Anemia Type Not Specified Follow-Up: Gloria Otto ARNP [Primary Care Provider] - Prescriptions: LORazepam [Ativan] 1 mg PO TID PRN #12 tablet PRN Reason: Alcohol Withdrawal Ondansetron Odt [Zofran] 4 mg TL Q6H PRN #10 tablet PRN Reason: Nausea / Vomiting Comments: On your testing today we found that you are anemic which seems to be new for you. This could be from a number of reasons and I do think you should have close follow-up with your primary care provider regarding this as you may need further testing such as an upper or lower endoscopy to see if there is bleeding anywhere. In the meanwhile would also encourage you to Work on abstaining from alcohol and also do not take medications that are NSAIDs which includes Aleve, ibuprofen, Motrin, naproxen. The jet worker also speak with you about your alcohol use and at this time you are wanting to go home. Please also utilize a list of resources you were given As it can be difficult to quit on your own. I have sent a prescription for a medication to help with alcohol withdrawal symptoms to [facility] in [place]. This is called Ativan. However you should not take this medication if you are drinking at all as mixing the 2 can be dangerous. Return to the ER with any worsening symptoms such as blood in your stools. [facility] [address] [place] [address] Main The [facility] offers a monitored and safe setting for individuals withdrawing from alcohol and drugs, and counseling for individuals experiencing a mental health crisis. All services are provided in a 10-bed facility where intensive medical monitoring is required along with stabilization services. The goal of these services is to assess a clients mental health and substance use disorder related needs, and assist them in accessing the services they need to recover. Forms: PCP List Discharge Date/Time: 10/05/23 15:10
[2023-10-05 08:07] LABS: BASOPHILS # (AUTO) 0.1 10^3/uL (0.0-0.1); BASOPHILS % (AUTO) 0.8 %; HGB - HEMOGLOBIN 9.4 g/dL (12.0-16.0); LYMPHOCYTES # (AUTO) 0.7 10^3/uL (1.5-3.5); LYMPHOCYTES % (AUTO) 8.2 %; MEAN CORPUSCULAR HEMOGLOBIN 37.3 pg (27.0-31.0); MEAN CORPUSCULAR HGB CONC 33.6 g/dL (32.0-36.0); MEAN CORPUSCULAR VOLUME 111.1 fL (81.0-99.0); MEAN PLATELET VOLUME 9.6 fL (7.9-10.8); MONOCYTES # (AUTO) 0.5 10^3/uL (0.0-1.0); MONOCYTES % (AUTO) 5.5 %; NEUTROPHILS # (AUTO) 7.4 10^3/uL (1.5-6.6); PLT - PLATELET COUNT 179 10^3/uL (130-450); RED BLOOD COUNT 2.52 10^6/uL (4.20-5.40); RED CELL DISTRIBUTION WIDTH 12.6 % (12.0-15.0); WHITE BLOOD COUNT 8.7 x10^3/uL (4.8-10.8)
[2023-10-05] MEDS: SODIUM CHLORIDE 0.9% 1,000 ML IV STA (08:08)
[2023-10-05 08:21] LABS: ALBUMIN 4.1 g/dL (3.2-5.5); ALBUMIN/GLOBULIN RATIO 1.3 (1.0-2.2); ALKALINE PHOSPHATASE 136 IU/L (42-121); ALT ALANINE AMINOTRANSFERASE 39 IU/L (10-60); AST ASPARTATE AMINOTRANSFERASE 60 IU/L (10-42); BILIRUBIN,TOTAL 0.6 mg/dL (0.2-1.0); BUN - BLOOD UREA NITROGEN 8 mg/dL (6-20); CALCIUM 9.4 mg/dL (8.5-10.3); CARBON DIOXIDE - CO2 24 mmol/L (21-32); CHLORIDE 96 mmol/L (101-111); CREATININE 0.5 mg/dL (0.6-1.3); ETOH - ETHANOL < 10.0 mg/dL; GFR - MDRD 125 (>89); GLUCOSE 112 mg/dL (74-104); LIPASE 42 U/L (11-82); POTASSIUM 3.9 mmol/L (3.5-4.5); SODIUM 131 mmol/L (135-145); TOTAL PROTEIN 7.2 g/dL (6.4-8.9)
[2023-10-05] MEDS: LORazepam 2 MG/ML VIAL IVP STA (08:27)
[2023-10-05 08:29] LABS: PLATELET ESTIMATE, MANUAL NORMAL (130-450,000) (NORMAL); PLATELET MORPHOLOGY NORMAL APPEARANCE (NORMAL)
[2023-10-05 08:34] LABS: DIFFERENTIAL COMMENT MANUAL=AUTO DIFF
[2023-10-05 09:21] LABS: BILIRUBIN,URINE NEGATIVE (NEGATIVE); CLARITY,URINE CLEAR (CLEAR); GLUCOSE, URINE (UA) NEGATIVE (NEGATIVE); KETONES,URINE (UA) 15 mg/dL (NEGATIVE); LEUKOCYTE ESTERASE, URINE NEGATIVE (NEGATIVE); NITRITE,URINE NEGATIVE (NEGATIVE); OCCULT BLOOD,URINE TRACE-INTA (NEGATIVE); PH,URINE 7.5 PH (5.0-7.5); PROTEIN,URINE NEGATIVE (NEGATIVE); UROBILINOGEN,URINE 0.2 (NORMAL) E.U./dL (NORMAL)
[2023-10-05] MEDS: PANTOPRAZOLE 40 MG VIAL IV STA (09:32)
[2023-10-05 15:16] VITALS: BP 144/92; O2SAT 100
== END 2023-10-05 15:10 | disposition home or self-care (01) ==
LOC: EDUNIT# → ED 07:43 → SUPCPDRO 07:43 → ED 15:10
DX: F10.139 Alcohol abuse with withdrawal, unspecified (principal); D64.9 Anemia, unspecified; Z79.899 Other long term (current) drug therapy
CPT/HCPCS: 36415; 80053; 81003; 82077; 82272; 83690; 85025; 96361; 96374; 99283; 99284; J2060; 81001; 87086

== ENCOUNTER 2023-10-12 11:57 | Outpatient (CLI) | payer OTHER ==
--- NOTE | 2023-10-12 13:54 | XRAY Report ---
PROCEDURE: Knee Standing BL INDICATIONS: KNEE PAIN TECHNIQUE: 3 views of the knee COMPARISON: Right knee x-ray 07/23/2023 FINDINGS: Bones: No fractures or dislocations. No suspicious bony lesions. Tricompartmental moderate arthri tic changes slightly more severe medially bilaterally are identified. Very minimal periarticular oste ophytes are present. No distinct erosions. No appreciable interval change. Soft tissues: Mild bilateral knee joint effusion. No suspicious soft tissue calcifications or masses . IMPRESSION: Tricompartmental arthritic changes bilaterally relatively symmetric. Reviewed by: Anay Isabel MD on 10/12/2023 1:52 PM PDT Approved by: Anay Isabel MD on 10/12/2023 1:52 PM PDT Station ID: [id number]
== END 2023-10-12 11:58 | disposition home or self-care (01) ==
LOC: DI 11:57
PROVIDERS: ATTEND Internal Medicine
DX: M17.0 Bilateral primary osteoarthritis of knee (principal)

== ENCOUNTER 2024-01-28 11:15 | Outpatient (CLI) | payer OTHER ==
[2024-01-28 17:46] LABS: HCT - HEMATOCRIT 40.7 % (37.0-47.0); HGB - HEMOGLOBIN 12.8 g/dL (12.0-16.0); MEAN CORPUSCULAR HEMOGLOBIN 30.4 pg (27.0-31.0); MEAN CORPUSCULAR HGB CONC 31.4 g/dL (32.0-36.0); MEAN CORPUSCULAR VOLUME 96.7 fL (81.0-99.0); MEAN PLATELET VOLUME 9.5 fL (7.9-10.8); RED BLOOD COUNT 4.21 10^6/uL (4.20-5.40); RED CELL DISTRIBUTION WIDTH 16.1 % (12.0-15.0); WHITE BLOOD COUNT 8.1 x10^3/uL (4.8-10.8)
[2024-01-28 18:01] LABS: CALCIUM 9.9 mg/dL (8.5-10.3); CREATININE 0.5 mg/dL (0.6-1.3); POTASSIUM 3.9 mmol/L (3.5-4.5)
== END 2024-01-28 11:30 | disposition home or self-care (01) ==
LOC: LAB.N 11:15
PROVIDERS: ATTEND Nurse Practitioner
DX: R60.0 Localized edema (principal)
CPT/HCPCS: 36415; 80048; 83880; 85027

== ENCOUNTER 2024-07-15 14:44 | Inpatient (IN) ==
--- NOTE | 2024-07-15 14:57 | ED Physician Documentation ---
History of Present Illness Stated complaint Stated Complaint: FOUND DOWN/ETOH Chief complaint Chief Complaint: Trauma Ext History obtained from History obtained from: Patient, Family and EMS History of Present Illness Timing: Unknown Additonal information Additional information: 64-year-old female presents to the emergency department after being found down at home. Her son who reportedly lives in [facility] had tried to contact her but she was not answering the phone so he called to have a welfare check performed. Medics found her on the floor of her kitchen. Bruising to the left side of the face and pain in the left shoulder. Patient is a known alcoholic, she states she usually drinks 4-5 bottles of wine per day. She does not know when her last drink was but she thinks 2 to 3 days ago. Has a history of liver cirrhosis, supposed to be on lactulose but is not taking this. Patient does not recall falling. She is not clear how she ended up on the floor or how long she has been on the ground for. She states she has not been taking her medications. Review of Systems Constitutional Denies: Fever or Chills Respiratory Denies: Cough Gastrointestinal Denies: Vomiting, Mundo blood emesis or Coffee grounds in vomit Meds/Allgy Home Medications Ambulatory Orders Medication Instructions Recorded Confirmed ciprofloxacin HCl 250 mg tablet 250 mg PO Q12H #10 tabs 12/17/23 ibuprofen 200 mg tablet (IBU-200) 200 mg PO DAILY PRN Pain 1-4 #30 12/17/23 tabs lactulose 10 gram/15 mL oral 15 ml PO DAILY hepatic 12/17/23 solution encephalopathy 30 days #473 mL mirtazapine 15 mg tablet 7.5 mg (1/2 x 15 mg) PO DAILY 12/17/23 depression #30 tabs ondansetron 4 mg disintegrating 4 mg translingual Q6H PRN Nausea / 12/17/23 tablet Vomiting #10 tabs vit no.95-ferrous 1 ea PO DAILY alcoholic liver 12/17/23 fumarate 28 mg-folic acid 800 mcg disease #30 tabs tablet thiamine mononitrate (vit B1) 100 100 mg PO DAILY alcholic liver 12/17/23 mg tablet (Vitamin B-1 disease #100 tabs (mononitrate)) Allergies Allergies Allergy/AdvReac Type Severity Reaction Status Date / Time Penicillins Allergy Mild Rash Verified 07/15/24 15:05 morphine Allergy Hallucinati Verified 07/15/24 15:05 ons [facility] Social History Social History Smoking Status: Never smoker If you are a former smoker, when did you quit? (Date/Year): 2022 Number of Years Smoked: 48 How many cigarettes a day do you smoke? (20 cigarettes=1 Pk): 30 Do you dip or chew tobacco?: No Do you vape?: No Patient requests smoking cessation consult: No Initiate information on smoking cessation: No Living arrangement: At home Marital Status: Living Condition: With family Support Person: No Relationship: How many days per week?: 1 Level: Independent Home Mobility Equipment: Walker History of Abuse: No ETOH Use: Frequency: Daily POLST Patient has POLST: No Exam Constitutional Thin female, bruising to the left periorbital area. HENMT No palpable skull fractures or hematomas. There is bruising in the left periorbital area. Eyes PERRL and EOMs intact bilaterally Small left subconjunctival hemorrhage. Neck/C-Spine visual inspection normal, trachea midline, cervical spine nontender, cervical full ROM noted and supple Chest palpation of chest normal Respiratory breath sounds equal bilaterally and normal respiratory effort Cardiovascular normal heart rate noted and regular rhythm noted Back/Pelvis no thoracic spine tenderness and no lumbar spine tenderness Extremities Full range of motion of the bilateral hips and knees without any pain. No pain with movement of the right arm or shoulder. There is tenderness and pain to the left glenohumeral joint along with some bruising. Neurovascularly intact including the axillary nerve. Neurology GCS 15 Psychiatry mental status grossly normal and oriented x3 Skin skin color normal Results Vitals Vitals: Vital Signs - 24 hr 07/15/24 14:55 07/15/24 15:05 07/15/24 15:10 Temperature 36 C L Temperature Source Temporal Artery Scan Pulse Rate 109 H 109 H Pulse Strength Normal Respiratory Rate 22 14 Blood Pressure 77/60 L 65/52 L O2 Saturation 99 100 O2 Source Room air Room air Pain Intensity 10 8 07/15/24 15:19 07/15/24 15:49 07/15/24 15:58 Temperature Temperature Source Pulse Rate 105 H 103 H 101 H Pulse Strength Respiratory Rate 17 13 18 Blood Pressure 80/59 L 73/61 L 65/55 L O2 Saturation 99 96 95 O2 Source Room air Room air Pain Intensity 8 0 07/15/24 16:17 07/15/24 16:30 07/15/24 17:00 Temperature Temperature Source Pulse Rate 99 96 97 Pulse Strength Respiratory Rate 17 12 17 Blood Pressure 92/68 101/66 109/75 O2 Saturation 95 95 95 O2 Source Room air Room air Room air Pain Intensity 0 0 0 07/15/24 17:32 Temperature Temperature Source Pulse Rate Pulse Strength Respiratory Rate Blood Pressure O2 Saturation O2 Source Pain Intensity 10 Oxygen O2 Source Room air EKG (time done) 1544: EKG releavant findings:: EKG personally interpreted by author of this note. Relevant findings are: Rate: Rate (enter#) (101) Rhythm: Sinus tachycardia [place]: Normal Intervals: Normal NE Ischemia: ST depression (mild) Computer interpretation: Agree with computer Labs Labs: Laboratory Tests 07/15/24 14:51 WBC 26.6 H RBC 4.32 Hgb 14.1 Hct 40.2 MCV 93.1 MCH 32.6 H MCHC 35.1 RDW 12.1 Plt Count 339 MPV 8.8 Neut # (Auto) Not Reportable Lymph # (Auto) Not Reportable [place] # (Auto) Not Reportable Eos # (Auto) Not Reportable Baso # (Auto) Not Reportable Absolute Nucleated RBC Not Reportable Total Counted 100 Band Neuts % (Manual) 3 Reactive Lymphs % (Man) 1 Abnorm Lymph % (Manual) 0 Metamyelocytes % 1 H Nucleated RBC % Not Reportable Neutrophils # (Manual) 23.7 H Lymphocytes # (Manual) 0.8 L Monocytes # (Manual) 1.9 H Eosinophils # (Manual) 0.0 Basophils # (Manual) 0.0 Differential Comment MANUAL DIFFERENTIAL WBC Morphology 1+ SMUDGE CELLS Platelet Estimate NORMAL (130-450,000) Platelet Morphology LPLT RBC Morph Micro Appear NORMAL APPEARANCE PT 15.3 H INR 1.4 H APTT 22.6 L Sodium 121 L Potassium 3.4 L Chloride 76 L* Carbon Dioxide 23 Anion Gap 22.0 H BUN 37 H Creatinine 1.7 H Estimated GFR (MDRD) 30 L Glucose 186 H Calcium 9.5 Magnesium 1.8 Total Bilirubin 0.4 AST 31 ALT 21 Alkaline Phosphatase 94 Ammonia 27.2 Total Creatine Kinase 1446 H* Total Protein 7.6 Albumin 3.7 Globulin 3.9 Albumin/Globulin Ratio 0.9 L Lipase 46 Vitamin B12 1358 H Folate 5.8 L TSH 1.03 Salicylates < 1.5 Acetaminophen 0.1 Ethyl Alcohol < 10.0 Rads (name of study) head CT: Relevant Findings:: Final report received PD Medical Decision Making ED course Complexity details: reviewed results, re-evaluated patient, considered differential, d/w patient, d/w family and d/w residential property consultant ED course: Patient is a 64-year-old female, history of alcoholism who presents after being found down on the ground. Initially patient was pretty significantly altered, this improved with IV fluids and time in the emergency department. Suspect that she likely has Warnicke's encephalopathy. IV thiamine and folate were ordered. Her head CT does not show any acute abnormalities. Maxillofacial CT shows left maxillary sinus fractures as well as a right mandibular condyle fracture. Cervical spine CT does not show any fractures. Left shoulder x-ray shows a left humeral neck fracture. Placed in a sling for this, does not need orthopedic intervention, can follow-up as an outpatient regarding this. Discussed the case with Dr. Rome, maxillofacial surgery, he will review her images to determine if any surgical intervention is needed. He states that if any surgical intervention is needed he is comfortable performing that here. Also discussed the case with the patient's son who is on [facility] and is scheduled to fly into [place] on 17 July. He was updated regarding her status. Her blood pressure significantly improved with IV fluids. Does have an elevated white blood cell count as well as rhabdomyolysis, suspect that this will all improve with fluids. Discussed the case with the hospitalist and will admit for further care. This document was made in part using voice recognition software. While efforts are made to proofread this document, sound alike and grammatical errors may occur. Discharge Plan Discharge Patient Disposition: 67 [facility] DC/Xfer Condition: Stable Clinical Impression: Fracture of neck of left humerus, Hyponatremia, Closed fracture of right condylar process of mandible, Closed fracture of left maxillary sinus, Hypochloremia, Acute dehydration, Acute renal failure, Alcoholism, Rhabdomyolysis Interventions: ED Admission Assessment Last Done: 07/15/24 18:38
[2024-07-15] MEDS: SODIUM CHLORIDE 0.9% 1,000 ML IV STA ×2 (15:33→16:20)
[2024-07-15 15:40] LABS: BASOPHILS % (AUTO) 0.3 %; EOSINOPHILS % (AUTO) 0.8 %; HCT - HEMATOCRIT 40.2 % (37.0-47.0); HGB - HEMOGLOBIN 14.1 g/dL (12.0-16.0); LYMPHOCYTES % (AUTO) 2.9 %; MEAN CORPUSCULAR HEMOGLOBIN 32.6 pg (27.0-31.0); MEAN CORPUSCULAR HGB CONC 35.1 g/dL (32.0-36.0); MEAN CORPUSCULAR VOLUME 93.1 fL (81.0-99.0); MEAN PLATELET VOLUME 8.8 fL (7.9-10.8); MONOCYTES % (AUTO) 4.8 %; NEUTROPHILS % (AUTO) 90.1 %; PLT - PLATELET COUNT 339 10^3/uL (130-450); RED BLOOD COUNT 4.32 10^6/uL (4.20-5.40); RED CELL DISTRIBUTION WIDTH 12.1 % (12.0-15.0); WHITE BLOOD COUNT 26.6 x10^3/uL (4.8-10.8)
[2024-07-15 15:42] LABS: ABNORMAL LYMPHS % (MANUAL) 0 %
[2024-07-15 15:43] LABS: PARTIAL THROMBOPLASTIN TIME 22.6 secs (24.9-33.3)
[2024-07-15 15:47] LABS: INR 1.4 (0.8-1.2); MAGNESIUM 1.8 mg/dL (1.7-2.3); PT - PROTHROMBIN TIME 15.3 secs (9.9-12.6)
[2024-07-15 15:53] LABS: ACETAMINOPHEN 0.1 ug/mL; ETOH - ETHANOL < 10.0 mg/dL; LIPASE 46 U/L (11-82)
[2024-07-15 15:56] LABS: ALBUMIN 3.7 g/dL (3.2-5.5); ALBUMIN/GLOBULIN RATIO 0.9 (1.0-2.2); ALKALINE PHOSPHATASE 94 IU/L (42-121); ALT ALANINE AMINOTRANSFERASE 21 IU/L (10-60); AST ASPARTATE AMINOTRANSFERASE 31 IU/L (10-42); BILIRUBIN,TOTAL 0.4 mg/dL (0.2-1.0); BUN - BLOOD UREA NITROGEN 37 mg/dL (6-20); CALCIUM 9.5 mg/dL (8.5-10.3); CARBON DIOXIDE - CO2 23 mmol/L (21-32); CHLORIDE 76 mmol/L (101-111); CK- CREATINE KINASE 1446 IU/L (30-223); CREATININE 1.7 mg/dL (0.6-1.3); GFR - MDRD 30 (>89); GLUCOSE 186 mg/dL (74-104); POTASSIUM 3.4 mmol/L (3.5-4.5); SALICYLATE < 1.5 mg/dL; SODIUM 121 mmol/L (135-145); TOTAL PROTEIN 7.6 g/dL (6.4-8.9)
[2024-07-15 16:04] LABS: BAND NEUTROPHILS % (MANUAL) 3 %; LYMPHOCYTES # (MANUAL) 0.8 10^3/uL (1.5-3.5); LYMPHOCYTES % (MANUAL) 2 %; METAMYELOCYTES % (MANUAL) 1 %; MONOCYTES # (MANUAL) 1.9 10^3/uL (0.0-1.0); NEUTROPHILS # (MANUAL) 23.7 10^3/uL (1.5-6.6); REACTIVE LYMPHS % (MANUAL) 1 %
[2024-07-15 16:08] LABS: PLATELET ESTIMATE, MANUAL NORMAL (130-450,000) (NORMAL); PLATELET MORPHOLOGY LPLT (NORMAL); WBC MORPHOLOGY (MULTIPLE) 1+ SMUDGE CELLS (NORMAL)
[2024-07-15 16:09] LABS: RBC MORPHOLOGY (MULTIPLE) NORMAL APPEARANCE (NORMAL)
[2024-07-15 16:10] LABS: DIFFERENTIAL COMMENT MANUAL DIFFERENTIAL
--- NOTE | 2024-07-15 16:16 | CT Report ---
PROCEDURE: CT Cervical Spine WO INDICATIONS: fall, pain TECHNIQUE: Noncontrast 3 mm thick sections acquired from the skull base to the T4 level. Sagittal and coronal r eformats were then constructed. For radiation dose reduction, the following was used: automated exp osure control, adjustment of mA and/or kV according to patient size. COMPARISON: 07/22/2022 Correlation is also made with the accompanying imaging. FINDINGS: Image quality: Excellent. Bones: No fractures or dislocations. Visualized superior ribs are intact. Focal degenerative change can be seen involving the C1-C2 interface anteriorly. There is moderate to severe disc space narrowing seen at C5-C6 and C6-C7, with associated endplate ir regularity and sclerosis. Posteriorly directed endplate osteophytes can be seen at these levels. Ther e is minimal retrolisthesis seen at C5-C6. Multiple levels of significant facet hypertrophy can be seen. Soft tissues: Prevertebral soft tissues are normal in thickness. No paravertebral hematomas. No ap ical pneumothoraces. Atherosclerotic calcification is seen. Generalized wall thickening can be seen involving the visualized esophagus. Emphysematous changes can be seen at the lung apices. At the right lung apex, there is new pleural th ickening seen anteriorly, with thickening along a fissure. IMPRESSION: Negative for acute fracture. Multiple levels of significant cervical spine degenerative change can be seen, which are worst inferi wiliam. There is thickening seen of the visualized esophagus. Please correlate with patient history, includin g esophagitis and reflux. New pleural thickening seen involving the right lung apex, with a mild amount of fluid seen along a f issure. Reviewed by: Igor Bartlett MD on 07/15/2024 3:15 PM [place] Approved by: Igor Bartlett MD on 07/15/2024 3:15 PM [facility] Station ID: [id number]
--- NOTE | 2024-07-15 16:20 | CT Report ---
PROCEDURE: CT Head WO INDICATIONS: fall, pain TECHNIQUE: Noncontrast 4.5 mm thick angled axial sections acquired from the foramen magnum to the vertex. For r adiation dose reduction, the following was used: automated exposure control, adjustment of mA and/or kV according to patient size. COMPARISON: 07/22/2022. Correlation is also made with the accompanying imaging. FINDINGS: Image quality: Excellent. CSF spaces: Basal cisterns are patent. No extra-axial fluid collections. Ventricles are normal in size and shape. Brain: No midline shift. No intracranial masses or hemorrhage. Wren-white matter interface is norm al. Skull and face: Calvarium appears intact, without suspicious lesions. Sinuses: Within the left maxillary sinus, there is layering blood seen. The paranasal sinuses otherwi se appear clear. IMPRESSION: No intracranial hemorrhage is seen. No significant intracranial abnormality is seen. There is layering blood within the left maxillary sinus. This patient has left maxillary sinus fractu res, which are better demonstrated on the accompanying maxillofacial CT. Reviewed by: Igor Bartlett MD on 07/15/2024 3:18 PM [place] Approved by: Igor Bartlett MD on 07/15/2024 3:18 PM [facility] Station ID: [id number]
--- NOTE | 2024-07-15 16:23 | CT Report ---
PROCEDURE: CT Maxillofacial WO INDICATIONS: fall, pain TECHNIQUE: Noncontrast 1.5 mm thick axial images acquired from the mandible through the frontal sinuses, with co eva and sagittal reformatting. For radiation dose reduction, the following was used: automated ex posure control, adjustment of mA and/or kV according to patient size. COMPARISON: Correlation is made with the accompanying imaging. FINDINGS: Image quality: Excellent. Bones and teeth: There are mildly to moderately displaced fractures seen involving the lateral wall of the left maxill brijesh sinus. There is also a mildly displaced fracture involving the anterior inferior wall of the left maxillary sinus, as on series 503 image 71. No fracture of the left orbital roof/left orbital floor can be seen. The medial wall of the right maxillary sinus does not demonstrate a fracture, although i t is highly thinned. There is an irregular fracture seen involving the left zygomatic arch. Orbital hernandez are intact. Nasal bones and septum are intact. There is chronic mild rightward nasal s eptal deviation. Visualized portions of the mandible demonstrate no fractures or subluxation. Zygoma tic arches are intact. Pterygoid plates are intact. Visualized portions of the skull base and audit ory canals are intact. Sinuses: There is layering blood seen within the left maxillary sinus. Mastoid air cells are aerated. The ostiomeatal complexes are patent, yet they are constitutionally narrowed, with bilateral Home c ells. The left osteochondral complex is narrowed by soft tissue thickening. Soft tissues: Left-sided soft tissue swelling is seen, including within the periorbital region. Vascular: Visualized vascular structures appear normal in the absence of contrast. Bony vascular fo ramina and canals are intact. IMPRESSION: Several fractures can be seen involving the wall of the left maxillary sinus, which are worst lateral ly. There is associated layering blood within the left maxillary sinus. Irregular fracture lines can be seen involving the left zygomatic arch. Reviewed by: Igor Bartlett MD on 07/15/2024 3:22 PM [facility] Approved by: Igor Bartlett MD on 07/15/2024 3:22 PM [facility] Station ID: [id number]
[2024-07-15] MEDS: THIAMINE INJ 100 MG, FOLIC ACID INJ 1 MG in SODIUM CHLORIDE 0.9% 1,000 ML IV STA (16:25)
--- NOTE | 2024-07-15 16:26 | XRAY Report ---
PROCEDURE: XR Shoulder 2+V LT INDICATIONS: fall, pain TECHNIQUE: 3 views of the shoulder were acquired. COMPARISON: Correlation is made with chest radiograph, 12/16/2023. FINDINGS: Bones: There is an irregular, moderately displaced fracture seen involving the left humeral neck. No glenohumeral dislocation is seen. The visualized ribs appear intact. Age-appropriate degenerative changes are seen. Soft tissues: No suspicious soft tissue calcifications. Calcification is seen of the aortic arch. The visualized lungs are within normal limits. IMPRESSION: Moderately displaced fracture of the left humeral neck. No shoulder dislocation is seen. Reviewed by: Igor Bartlett MD on 07/15/2024 3:25 PM [facility] Approved by: Igor Bartlett MD on 07/15/2024 3:25 PM [facility] Station ID: [id number]
[2024-07-15 16:37] LABS: THYROID STIMULATING HORMONE 1.03 uIU/mL (0.34-5.60)
[2024-07-15] MEDS: fentaNYL 100 MCG/2 ML VIAL IVP STA (17:32)
--- NOTE | 2024-07-15 17:57 | HISTORY & PHYSICAL EXAMINATION ---
Chief Complaint Chief Complaint Chief Complaint: Fall History of Present Illness Admitted From Admitted From:: Home History Obtained From Records Reviewed: EMR History obtained from: Patient, family at bedside. Chart review Exam Limitations: Patient confused History of Present Illness HPI Comment/Other: 64-year-old female past medical history of alcohol abuse, she has had admissions for alcohol withdrawal before and has been noted to have Alcoholic liver disease/cirrhosis. She presented to the ER after being found down on a wellness check. Her son lives in [facility], and had tried to contact her but she was not answering her phone. Medics found her on the floor of her kitchen with bruising to the left side of her face and pain in the left shoulder. Family reports she drinks 4-5 bottles of wine per day. She thinks her last drink was 1 to 2 days ago. She reports poor nutrition to me since the of her . She states that she has hardly had anything to eat for at least 2 days. Denies fever, chills, chest pain, shortness of breath, abdominal/urinary problems. She endorses pain in her face and in her Left shoulder In the ER, shoulder x-ray was performed which showed a moderately displaced fracture of the left humeral neck without shoulder dislocation. CT facial bones was performed which showed Several fractures involving the wall of the left maxillary sinus, associated layering blood within the left maxillary sinus and irregular fracture lines involving the left Zygomatic arch. She also had several electrolyte derangements, including sodium 121, potassium 3.4, chloride 76, creatinine 1.7, up from a baseline of 0.5. Her CK was 1446. She was given IV fluid by ER provider for this and for a blood pressure of 65/52 with the lowest. Hospitalist was contacted for admission for hyponatremia, hypokalemia, rhabdomyolysis, alcohol withdrawal Meds/Allgy Home Medications Ambulatory Orders Medication Instructions Recorded Confirmed ciprofloxacin HCl 250 mg tablet 250 mg PO Q12H #10 tabs 12/17/23 ibuprofen 200 mg tablet (IBU-200) 200 mg PO DAILY PRN Pain 1-4 #30 12/17/23 tabs lactulose 10 gram/15 mL oral 15 ml PO DAILY hepatic 12/17/23 solution encephalopathy 30 days #473 mL mirtazapine 15 mg tablet 7.5 mg (1/2 x 15 mg) PO DAILY 12/17/23 depression #30 tabs ondansetron 4 mg disintegrating 4 mg translingual Q6H PRN Nausea / 12/17/23 tablet Vomiting #10 tabs vit no.95-ferrous 1 ea PO DAILY alcoholic liver 12/17/23 fumarate 28 mg-folic acid 800 mcg disease #30 tabs tablet thiamine mononitrate (vit B1) 100 100 mg PO DAILY alcholic liver 12/17/23 mg tablet (Vitamin B-1 disease #100 tabs (mononitrate)) Allergies Allergies Allergy/AdvReac Type Severity Reaction Status Date / Time Penicillins Allergy Mild Rash Verified 07/15/24 15:05 morphine Allergy Hallucinati Verified 07/15/24 15:05 ons PFSH Social History Social History Smoking Status: Never smoker If you are a former smoker, when did you quit? (Date/Year): 2022 Number of Years Smoked: 48 How many cigarettes a day do you smoke? (20 cigarettes=1 Pk): 30 Do you dip or chew tobacco?: No Do you vape?: No Patient requests smoking cessation consult: No Initiate information on smoking cessation: No Living arrangement: At home Marital Status: Living Condition: With family Support Person: No Relationship: How many days per week?: 1 Level: Independent Home Mobility Equipment: Walker History of Abuse: No ETOH Use: Frequency: Daily POLST Patient has POLST: No Review of Systems Status of ROS: 10 or more systems reviewed and unremarkable except as noted in history and below and unobtainable due to mental status (Patient requiring frequent redirection in conversation) Constitutional Denies: Fever or Chills Ears, nose, mouth, and throat Reports: Throat pain and Other (Pain around maxillary sinuses) Cardiovascular Denies: Irregular heart rate, chest pain or shortness of breath with exertion Respiratory Denies: Shortness of breath Gastrointestinal Denies: Abdominal pain Genitourinary Denies: Painful urination Musculoskeletal Denies: Back pain Integumentary/Breast Denies: Rash Neurological Reports: Confusion (Reports heavy drinking) Psychiatric Reports: Depression (Since her ) Exam Constitutional Pale elderly female, bruising on face and shoulder HENMT head/scalp traumatic (Bruising on face) Eyes PERRL Neck/C-Spine visual inspection normal Lymph no lymphadenopathy noted Chest inspection of chest normal Respiratory breath sounds equal bilaterally Cardiovascular normal heart rate noted Gastrointestinal abdomen normal to inspection Genitourinary bladder normal to palpation Back/Pelvis spine normal to inspection Extremities normal to inspection Neurology patent law specialist II-XII intact Slow to respond, requires redirection in conversation. Moves all extremities, follows commands Psychiatry oriented x3 Skin skin color normal Conclusion/Plan Problem List (1) Rhabdomyolysis: Plan: IV fluid resuscitation ordered by ER provider Additional banana bag and normal saline at 150 x 2 bags BMP in a.m. to evaluate renal recovery Avoid nephrotoxic agents (2) Hyponatremia: Plan: Normal saline bolus per ER provider NS at 150 x 2 bags Sodium every 4 hours Neurochecks (3) Alcohol withdrawal: Plan: Aggressive IV fluid resuscitation Vitamin supplementation with banana bag and oral vitamin repletion starting tomorrow CIWA protocol with as needed Ativan Scheduled Librium 25 mg every 6 Social work consult for alcohol cessation resources, unlikely she will be receptive to this Qualifiers: Complication of substance-induced condition: uncomplicated Qualified Code(s): F10.930 - Alcohol use, unspecified with withdrawal, uncomplicated (4) Acute renal failure: Plan: Aggressive fluid resuscitation BMP in a.m. (5) Closed fracture of right condylar process of mandible: Plan: OMFS contacted by ER physician, they report likely no surgical intervention They will review films and give further recommendations Soft diet (6) Fracture of neck of left humerus: Plan: Sling per ER provider Follow-up with orthopedics outpatient Plan Placed in observation Per ER provider, son/POA reports that she is DNR Lab Results Lab results reviewed: Yes 07/15/24 14:51 07/15/24 14:51 Diagnostic Imaging Results Diagnostic Imaging Results Comments: CT head no ICH, positive for maxillary sinus fractures on the left CT facial bones with maxillary sinus fractures, Irregular fracture lines on the left zygomatic arch X-ray shoulder with moderately displaced fracture of left humeral neck Core Measures Anticipated LOS I expect patient to be DC'd or transferred within 96 hours.: Yes Issues Hospital Issues and Management Plan: Alcohol withdrawal, several electrolyte derangements, fractures of left humerus and sinuses DVT/VTE - Prophylaxis VTE/DVT Device ordered at admit?: Yes
[2024-07-15] MEDS ORDERED: MAGNESIUM SULFATE IV SCH (18:00)
[2024-07-15] MEDS ORDERED: MULTIVITAMIN IV SCH (18:00)
[2024-07-15] MEDS ORDERED: THIAMINE IV SCH (18:00)
[2024-07-15] MEDS ORDERED: FOLIC ACID IV SCH (18:00)
[2024-07-15] MEDS ORDERED: [UNRECOGNIZED DRUG - OTHER] IV SCH (18:00)
[2024-07-15] MEDS ORDERED: ONDANSETRON ODT 4 MG TABLET TL PRN (19:33)
[2024-07-15] MEDS ORDERED: LORazepam 2 MG/ML VIAL IVP PRN (19:33)
[2024-07-15] MEDS ORDERED: LORazepam 1 MG TABLET PO PRN (19:33)
[2024-07-15] MEDS ORDERED: ONDANSETRON 4 MG/2 ML VIAL IVP PRN (19:33)
[2024-07-15 20:27] LABS: INR 1.4 (0.8-1.2); PT - PROTHROMBIN TIME 15.1 secs (9.9-12.6)
[2024-07-15 20:32] LABS: BASOPHILS # (AUTO) 0.1 10^3/uL (0.0-0.1); BASOPHILS % (AUTO) 0.2 %; EOSINOPHILS # (AUTO) 0.1 10^3/uL (0.0-0.7); EOSINOPHILS % (AUTO) 0.2 %; HCT - HEMATOCRIT 37.5 % (37.0-47.0); HGB - HEMOGLOBIN 13.3 g/dL (12.0-16.0); LYMPHOCYTES # (AUTO) 1.1 10^3/uL (1.5-3.5); LYMPHOCYTES % (AUTO) 4.7 %; MEAN CORPUSCULAR HEMOGLOBIN 33.1 pg (27.0-31.0); MEAN CORPUSCULAR HGB CONC 35.5 g/dL (32.0-36.0); MEAN CORPUSCULAR VOLUME 93.3 fL (81.0-99.0); MEAN PLATELET VOLUME 8.9 fL (7.9-10.8); MONOCYTES # (AUTO) 1.1 10^3/uL (0.0-1.0); MONOCYTES % (AUTO) 4.9 %; NEUTROPHILS # (AUTO) 20.2 10^3/uL (1.5-6.6); NEUTROPHILS % (AUTO) 89.2 %; NRBC ABSOLUTE COUNT (AUTO) 0.02 x10^3/uL; NUCLEATED RED BLOOD CELLS AUTO 0.1 /100WBC; PLT - PLATELET COUNT 286 10^3/uL (130-450); RED BLOOD COUNT 4.02 10^6/uL (4.20-5.40); RED CELL DISTRIBUTION WIDTH 12.3 % (12.0-15.0); WHITE BLOOD COUNT 22.6 x10^3/uL (4.8-10.8)
[2024-07-15 20:33] LABS: SLIDE REVIEW? Indicated
[2024-07-15] MEDS: chlordiazePOXIDE 25 MG CAPSULE PO SCH (20:40)
[2024-07-15 21:18] LABS: DIFFERENTIAL COMMENT MANUAL=AUTO DIFF; PLATELET ESTIMATE, MANUAL NORMAL (130-450,000) (NORMAL); PLATELET MORPHOLOGY NORMAL APPEARANCE (NORMAL); RBC MORPHOLOGY (MULTIPLE) NORMAL APPEARANCE (NORMAL); WBC MORPHOLOGY (MULTIPLE) 1+ TOXIC GRANULATION (NORMAL)
[2024-07-15] MEDS: ACETAMINOPHEN 500 MG TABLET PO SCH (21:52)
[2024-07-15 22:04] LABS: CORONAVIRUS 229E-RESP PCR NOT DETECTED; CORONAVIRUS HKU1-RESP PCR NOT DETECTED; CORONAVIRUS NL63-RESP PCR NOT DETECTED; CORONAVIRUS OC43-RESP PCR NOT DETECTED; HUMAN METAPNEUMOVIRUS NOT DETECTED; INFLUENZA A- RESP PCR PANEL NOT DETECTED; RHINOVIRUS/ENTEROVIRUS NOT DETECTED; SARS-CoV-2 -RESP PCR PANEL NOT DETECTED
[2024-07-15 22:05] LABS: B. PARAPERTUSSIS- RESP PCR PAN NOT DETECTED; B. PERTUSSIS- RESP PCR PANEL NOT DETECTED; C. PNEUMONIAE- RESP PCR PANEL NOT DETECTED; INFLUENZA B - RESP PCR PANEL NOT DETECTED; M. PNEUMONIAE- RESP PCR PANEL NOT DETECTED; PARAINFLUENZA VIRUS 1 NOT DETECTED; PARAINFLUENZA VIRUS 2 NOT DETECTED; PARAINFLUENZA VIRUS 4 NOT DETECTED; RSV- RESP PCR PANEL NOT DETECTED
[2024-07-15] MEDS: SODIUM CHLORIDE 0.9% 500 ML IV STA (22:33)
[2024-07-15] MEDS: SODIUM CHLORIDE 0.9% 500 ML IV ONE (22:58)
[2024-07-15 23:01] LABS: BILIRUBIN,URINE MODERATE (NEGATIVE); GLUCOSE, URINE (UA) NEGATIVE (NEGATIVE); KETONES,URINE (UA) 15 mg/dL (NEGATIVE); LEUKOCYTE ESTERASE, URINE NEGATIVE (NEGATIVE); NITRITE,URINE NEGATIVE (NEGATIVE); OCCULT BLOOD,URINE SMALL (NEGATIVE); PROTEIN,URINE TRACE mg/dL (NEGATIVE); UROBILINOGEN,URINE 0.2 (NORMAL) E.U./dL (NORMAL)
[2024-07-15 23:03] LABS: CLARITY,URINE CLEAR (CLEAR)
--- NOTE | 2024-07-15 23:08 | PROVIDER PROGRESS NOTE ---
Hospitalist Cross-cover Note Cross-Cover Note Cross-Cover Note: Called by RN stating patient is hypotensivehave recommended a liter bolus will also place gallo for strict i and out monitoring as well midodrone, if does not improve may need to be transferred to higher level of care Discussed with bedside RN and with charge nurse
[2024-07-15 23:16] LABS: AMPHETAMINE SCREEN,URINE NEGATIVE (NEGATIVE); BACTERIA,URINE Few /HPF (None Seen); BARBITURATE SCREEN,UR NEGATIVE (NEGATIVE); BENZODIAZEPINES SCREEN, URINE NEGATIVE (NEGATIVE); BUPRENORPHINE SCREEN, URINE NEGATIVE (NEGATIVE); COCAINE SCREEN URINE NEGATIVE (NEGATIVE); METHADONE SCREEN, URINE NEGATIVE (NEGATIVE); METHAMPHETAMINES SCREEN, URINE NEGATIVE (NEGATIVE); OPIATE SCREEN, URINE NEGATIVE (NEGATIVE); OXYCODONE SCREEN, URINE NEGATIVE (NEGATIVE); RBC,URINE 0-5 /HPF (0-5); SQUAMOUS EPITHELIAL CELL,UR MANY Squamous (<= Few); THC CANNABINOID SCREEN, URINE NEGATIVE (NEGATIVE); TRICYCLIC ANTIDEPRESSANT,URINE NEGATIVE (NEGATIVE)
[2024-07-15 23:47] LABS: CALCIUM 7.2 mg/dL (8.5-10.3); POTASSIUM 2.9 mmol/L (3.5-4.5)
[2024-07-15] MEDS: SODIUM CHLORIDE 0.9% 1,000 ML IV SCH (23:47)
[2024-07-15 23:49] LABS: BASOPHILS % (AUTO) 0.2 %; HCT - HEMATOCRIT 31.8 % (37.0-47.0); HGB - HEMOGLOBIN 10.8 g/dL (12.0-16.0); LYMPHOCYTES % (AUTO) 4.8 %; MEAN CORPUSCULAR HEMOGLOBIN 32.5 pg (27.0-31.0); MEAN CORPUSCULAR VOLUME 95.8 fL (81.0-99.0); MEAN PLATELET VOLUME 8.7 fL (7.9-10.8); MONOCYTES % (AUTO) 7.3 %; NEUTROPHILS % (AUTO) 63.1 %; PLT - PLATELET COUNT 224 10^3/uL (130-450); RED BLOOD COUNT 3.32 10^6/uL (4.20-5.40); RED CELL DISTRIBUTION WIDTH 12.3 % (12.0-15.0); WHITE BLOOD COUNT 19.4 x10^3/uL (4.8-10.8)
[2024-07-15 23:51] LABS: SLIDE REVIEW? Indicated
[2024-07-15] MEDS: SODIUM CHLORIDE FLUSH 0.9% 10 ML SYRINGE IVP SCH (23:53)
[2024-07-15 23:55] LABS: ABNORMAL LYMPHS % (MANUAL) 0 %
[2024-07-16] MEDS: MIDODRINE 2.5 MG TABLET PO SCH ×3 (00:07→17:55)
[2024-07-16 00:16] LABS: BAND NEUTROPHILS % (MANUAL) 1 %; DIFFERENTIAL COMMENT MANUAL DIFFERENTIAL; LYMPHOCYTES # (MANUAL) 1.9 10^3/uL (1.5-3.5); LYMPHOCYTES % (MANUAL) 10 %; MONOCYTES # (MANUAL) 0.2 10^3/uL (0.0-1.0); NEUTROPHILS # (MANUAL) 17.3 10^3/uL (1.5-6.6); PLATELET ESTIMATE, MANUAL NORMAL (130-450,000) (NORMAL); PLATELET MORPHOLOGY NORMAL APPEARANCE (NORMAL); RBC MORPHOLOGY (MULTIPLE) NORMAL APPEARANCE (NORMAL); WBC MORPHOLOGY (MULTIPLE) 2+ TOXIC GRANULATION (NORMAL)
--- NOTE | 2024-07-16 03:20 | PROVIDER PROGRESS NOTE ---
[employer] Note [employer] Note [employer] Note: Na initially 120s now in 140s no reported neuro deficits from rn pt with hypotension + rhabdomyolysis with ck >1000 ivf changed to 1/2ns with kcl @ slower rate continue close monitoring
[2024-07-16] MEDS: chlordiazePOXIDE 25 MG CAPSULE PO SCH (03:33)
[2024-07-16] MEDS: POTASSIUM CHLORIDE 20 MEQ TABLET PO ONE (04:00)
[2024-07-16] MEDS: SODIUM CHLORIDE 0.45% 1,000 ML IV SCH ×2 (04:05→10:44)
[2024-07-16 06:09] LABS: BASOPHILS % (AUTO) 0.2 %; EOSINOPHILS % (AUTO) 0.2 %; HCT - HEMATOCRIT 31.9 % (37.0-47.0); HGB - HEMOGLOBIN 10.9 g/dL (12.0-16.0); LYMPHOCYTES % (AUTO) 5.1 %; MEAN CORPUSCULAR HEMOGLOBIN 32.9 pg (27.0-31.0); MEAN CORPUSCULAR HGB CONC 34.2 g/dL (32.0-36.0); MEAN CORPUSCULAR VOLUME 96.4 fL (81.0-99.0); MONOCYTES # (AUTO) 1.1 10^3/uL (0.0-1.0); MONOCYTES % (AUTO) 5.7 %; NEUTROPHILS # (AUTO) 17.1 10^3/uL (1.5-6.6); NEUTROPHILS % (AUTO) 87.9 %; NRBC ABSOLUTE COUNT (AUTO) 0.02 x10^3/uL; NUCLEATED RED BLOOD CELLS AUTO 0.1 /100WBC; PLT - PLATELET COUNT 229 10^3/uL (130-450); RED BLOOD COUNT 3.31 10^6/uL (4.20-5.40); RED CELL DISTRIBUTION WIDTH 12.4 % (12.0-15.0); WHITE BLOOD COUNT 19.5 x10^3/uL (4.8-10.8)
[2024-07-16 06:26] LABS: CALCIUM 7.6 mg/dL (8.5-10.3); CREATININE 0.9 mg/dL (0.6-1.3); MAGNESIUM 1.6 mg/dL (1.7-2.3); PHOSPHORUS 2.2 mg/dL (2.5-5.0); POTASSIUM 2.6 mmol/L (3.5-4.5)
[2024-07-16] MEDS: MAGNESIUM SULFATE 4 GRAM 4 GM/50 ML BAG IV ONE (07:51)
[2024-07-16] MEDS: POTASSIUM CHLOR 10 MEQ/100 ML 10 MEQ/100 ML BAG IV SCH (07:56)
--- NOTE | 2024-07-16 08:38 | PROVIDER PROGRESS NOTE ---
Subjective Prog Note Date Prog Note Date: 07/16/24 Subjective Pt reports feeling: No change Current Medications Current Medications Current Medications: Current Medications Generic Name Dose Route Start Last Admin Trade Name Nevaeh PRN Reason Stop Dose Admin Acetaminophen 1,000 mg 07/15/24 22:00 07/16/24 06:39 Acetaminophen 500 Mg Tablet PO 07/18/24 21:59 1,000 mg TID ALFREDA Administration Ciprofloxacin 250 mg 07/16/24 09:00 Ciprofloxacin 250 Mg Tablet PO Q12H ALFREDA Potassium Chloride 10 meq in 100 mls @ 100 mls/hr 07/16/24 08:00 07/16/24 08:32 Potassium Chloride IV 07/16/24 11:59 50 mls/hr Q1H ALFREDA Administration Magnesium Sulfate 4 gm in 50 mls @ 25 mls/hr 07/16/24 08:00 07/16/24 07:51 Magnesium Sulfate IV 07/16/24 09:59 25 mls/hr ONCE ONE Administration Sodium Chloride 1,000 mls @ 150 mls/hr 07/16/24 08:00 Normal Saline 0.9% IV .Q6H40M ALFREDA Lactulose 10 gm 07/16/24 09:00 Lactulose 10 Gm /15 Ml Udc PO DAILY ALFREDA Lorazepam 1 mg 07/15/24 19:33 Lorazepam 2 Mg/Ml Vial IVP Q30M PRN CIWA >8 Protocol Lorazepam 1 mg 07/15/24 19:33 Lorazepam 1 Mg Tablet PO Q1H PRN CIWA > 8 Protocol Midodrine 5 mg 07/16/24 09:00 Midodrine 2.5 Mg Tablet PO TIDWM [facility] Mirtazapine 7.5 mg 07/16/24 21:00 Mirtazapine 15 Mg Tablet PO QPM ALFREDA Ondansetron HCl 4 mg 07/15/24 19:33 Ondansetron Odt 4 Mg Tablet TL Q6HR PRN Nausea / Vomiting Ondansetron HCl 4 mg 07/15/24 19:33 Ondansetron 4 Mg/2 Ml Vial IVP Q6HR PRN Nausea / Vomiting Potassium Chloride 40 meq 07/16/24 08:00 Potassium Chloride 20 Meq/15 Ml Udc PO DAILYWM ALFREDA Multivit/Folic Acid/Iron 1 tab 07/16/24 09:00 Vitamin Tablet PO DAILY ALFREDA Sodium Chloride 10 ml 07/15/24 19:33 Sodium Chloride Flush 0.9% 10 Ml Syringe IVP PRN PRN NEEDED PER PROVIDER ORDERS Sodium Chloride 10 ml 07/16/24 01:00 07/15/24 23:53 Sodium Chloride Flush 0.9% 10 Ml Syringe IVP Not Given 0100,0900,1700 [facility] Sodium Phosphate 250 mg 07/16/24 08:00 Neutra-Phos 250 Mg Tablet PO TIDWM ALFREDA Thiamine HCl 100 mg 07/16/24 09:00 Thiamine 100 Mg Tablet PO DAILY ALFREDA Objective Vital Signs/Intake & Output Reviewed Vital Signs: Yes Vital Signs: Vital Signs x48h Temp Pulse Resp BP BP Pulse Ox O2 Flow Rate 07/16/24 08:10 36.3 C L 92 28 H 82/52 L 90 L 2 07/16/24 05:44 100 2 07/16/24 05:05 94 4 07/16/24 04:49 36.5 C 97 20 84/59 L 97 3 07/16/24 02:38 89 90/61 07/16/24 02:21 91/63 07/16/24 02:14 93/55 L 07/16/24 01:58 78/26 L 07/16/24 01:54 94/62 07/16/24 01:53 80/43 L 07/16/24 01:51 79/40 L 07/16/24 01:44 92 77/48 L 93 Intake & Output: Intake & Output 07/13/24 07/14/24 07/15/24 07/16/24 23:59 23:59 23:59 23:59 Intake Total 2611.2 / 2611.2 1635 / 1635 Output Total 550 / 550 Balance 2611.2 / 2611.2 1085 / 1085 Weight (kg) 48 kg Objective General Appearance: positive No acute distress and Alert Eyes Bilateral: positive Normal inspection Respiratory: positive Chest non-tender, No respiratory distress and Breath sounds nml Cardiovascular: positive Regular rate & rhythm Abdomen: negative Non-tender (Tenderness to deep palpation right upper quad) or No distention Skin: positive Color nml Extremities: positive Non-tender Neurologic/Psychiatric: positive Oriented x3 Lab Results 07/16/24 05:35 07/16/24 05:35 Other Labs: Lab Results x24hrs 07/16/24 07/16/2407/15/24 Range/Units 05:35 01:49 23:42 WBC 19.5 H 19.4 H (4.8-10.8) x10^3/uL RBC 3.31 L 3.32 L (4.20-5.40) 10^6/uL Hgb 10.9 L 10.8 L (12.0-16.0) g/dL Hct 31.9 L 31.8 L (37.0-47.0) % MCV 96.4 95.8 (81.0-99.0) fL MCH 32.9 H 32.5 H (27.0-31.0) pg MCHC 34.2 34.0 (32.0-36.0) g/dL RDW 12.4 12.3 (12.0-15.0) % Plt Count 229 224 (130-450) 10^3/uL MPV 9.0 8.7 (7.9-10.8) fL Neut # (Auto) 17.1 H Not Reportable Lymph # (Auto) 1.0 L Not Reportable [place] # (Auto) 1.1 H Not Reportable Eos # (Auto) 0.0 Not Reportable Baso # (Auto) 0.0 Not Reportable Absolute Nucleated RBC 0.02 Not Reportable Total Counted 100 Band Neuts % (Manual) 1 (0 - 10) % Reactive Lymphs % (Man) % Abnorm Lymph % (Manual) 0 % Metamyelocytes % ( - 0) % Nucleated RBC % 0.1 Not Reportable Neutrophils # (Manual) 17.3 H (1.5-6.6) 10^3/uL Lymphocytes # (Manual) 1.9 (1.5-3.5) 10^3/uL Monocytes # (Manual) 0.2 (0.0-1.0) 10^3/uL Eosinophils # (Manual) 0.0 (0-0.7) 10^3/uL Basophils # (Manual) 0.0 (0-0.1) 10^3/uL Differential Comment MANUAL DIFFERENTIAL Manual Slide Review Indicated WBC Morphology 2+ TOXIC GRANULATION (NORMAL) Platelet Estimate NORMAL (130-450,000) (NORMAL) Platelet Morphology NORMAL APPEARANCE (NORMAL) RBC Morph Micro Appear NORMAL APPEARANCE (NORMAL) PT (9.9-12.6) secs INR (0.8-1.2) APTT (24.9-33.3) secs Sodium 126 L 141 (135-145) mmol/L Potassium 2.6 L (3.5-4.5) mmol/L Chloride 93 L (101-111) mmol/L Carbon Dioxide 23 (21-32) mmol/L Anion Gap 10.0 (6-13) BUN 29 H (6-20) mg/dL Creatinine 0.9 (0.6-1.3) mg/dL Estimated GFR (MDRD) 63 L (>89) Glucose 107 H (74-104) mg/dL Calcium 7.6 L (8.5-10.3) mg/dL Phosphorus 2.2 L (2.5-5.0) mg/dL Magnesium 1.6 L (1.7-2.3) mg/dL Total Bilirubin (0.2-1.0) mg/dL AST (10-42) IU/L ALT (10-60) IU/L Alkaline Phosphatase (42-121) IU/L Ammonia (18-72) umol/L Lactate Dehydrogenase (140-271) IU/L Total Creatine Kinase (30-223) IU/L Total Protein (6.4-8.9) g/dL Albumin (3.2-5.5) g/dL Globulin (2.1-4.2) g/dL Albumin/Globulin Ratio (1.0-2.2) Lipase (11-82) U/L Vitamin B12 (180-914) pg/mL Folate (5.90 - >24.8) ng/mL TSH (0.34-5.60) uIU/mL Urine Color Urine Clarity (CLEAR) Urine pH (5.0-7.5) PH Ur Specific Collins (1.002-1.030) Urine Protein (NEGATIVE) mg/dL Urine Glucose (UA) (NEGATIVE) mg/dL Urine Ketones (NEGATIVE) mg/dL Urine Occult Blood (NEGATIVE) Urine Nitrite (NEGATIVE) Urine Bilirubin (NEGATIVE) Urine Urobilinogen (NORMAL) E.U./dL Ur Leukocyte Esterase (NEGATIVE) Urine RBC (0-5) /HPF Urine WBC (0-5) /HPF Ur Squamous Epith Cells (<= Few) Urine Bacteria (None Seen) /HPF Ur Microscopic Review Urine Culture Comments Nasal Adenovirus (PCR) Nasal B. parapertussis DNA (PCR) Nasal Coronavir 229E PCR Nasal Coronavir HKU1 PCR Nasal Coronavir NL63 PCR Nasal Coronavir OC43 PCR Nasal Enterovir/Rhinovir PCR Nasal Influenza B PCR Nasal Influenza A PCR Nasal Parainfluen 1 PCR Nasal Parainfluen 2 PCR Nasal Parainfluen 3 PCR Nasal Parainfluen 4 PCR Nasal RSV (PCR) Nasal B.pertussis DNA PCR Nasal C.pneumoniae (PCR) Jerry Human Metapneumo PCR Nasal M.pneumoniae (PCR) Nasal SARS-CoV-2 (PCR) Salicylates mg/dL Urine Opiates Screen (NEGATIVE) Ur Buprenorphine Scrn (NEGATIVE) Ur Oxycodone Screen (NEGATIVE) Urine Methadone Screen (NEGATIVE) Acetaminophen ug/mL Ur Barbiturates Screen (NEGATIVE) Ur Tricyclics Screen (NEGATIVE) Ur Phencyclidine Scrn (NEGATIVE) Ur Amphetamine Screen (NEGATIVE) U Methamphetamines Scrn (NEGATIVE) U Benzodiazepines Scrn (NEGATIVE) Urine Cocaine Screen (NEGATIVE) U Cannabinoids Screen (NEGATIVE) Ur Drug Screen Comment Ethyl Alcohol mg/dL 07/15/24 07/15/24 07/15/24 Range/Units 23:19 22:55 21:20 WBC (4.8-10.8) x10^3/uL RBC (4.20-5.40) 10^6/uL Hgb (12.0-16.0) g/dL Hct (37.0-47.0) % MCV (81.0-99.0) fL MCH (27.0-31.0) pg MCHC (32.0-36.0) g/dL RDW (12.0-15.0) % Plt Count (130-450) 10^3/uL MPV (7.9-10.8) fL Neut # (Auto) Lymph # (Auto) [place] # (Auto) Eos # (Auto) Baso # (Auto) Absolute Nucleated RBC Total Counted Band Neuts % (Manual) (0 - 10) % Reactive Lymphs % (Man) % Abnorm Lymph % (Manual) % Metamyelocytes % ( - 0) % Nucleated RBC % Neutrophils # (Manual) (1.5-6.6) 10^3/uL Lymphocytes # (Manual) (1.5-3.5) 10^3/uL Monocytes # (Manual) (0.0-1.0) 10^3/uL Eosinophils # (Manual) (0-0.7) 10^3/uL Basophils # (Manual) (0-0.1) 10^3/uL Differential Comment Manual Slide Review WBC Morphology (NORMAL) Platelet Estimate (NORMAL) Platelet Morphology (NORMAL) RBC Morph Micro Appear (NORMAL) PT (9.9-12.6) secs INR (0.8-1.2) APTT (24.9-33.3) secs Sodium 128 L 125 L (135-145) mmol/L Potassium 2.9 L (3.5-4.5) mmol/L Chloride 93 L (101-111) mmol/L Carbon Dioxide 22 (21-32) mmol/L Anion Gap 13.0 (6-13) BUN 31 H (6-20) mg/dL Creatinine 1.0 (0.6-1.3) mg/dL Estimated GFR (MDRD) 56 L (>89) Glucose 106 H (74-104) mg/dL Calcium 7.2 L (8.5-10.3) mg/dL Phosphorus (2.5-5.0) mg/dL Magnesium (1.7-2.3) mg/dL Total Bilirubin (0.2-1.0) mg/dL AST (10-42) IU/L ALT (10-60) IU/L Alkaline Phosphatase (42-121) IU/L Ammonia (18-72) umol/L Lactate Dehydrogenase 151 (140-271) IU/L Total Creatine Kinase 1219 H* (30-223) IU/L Total Protein (6.4-8.9) g/dL Albumin (3.2-5.5) g/dL Globulin (2.1-4.2) g/dL Albumin/Globulin Ratio (1.0-2.2) Lipase (11-82) U/L Vitamin B12 (180-914) pg/mL Folate (5.90 - >24.8) ng/mL TSH (0.34-5.60) uIU/mL Urine Color YELLOW Urine Clarity CLEAR (CLEAR) Urine pH 6.0 (5.0-7.5) PH Ur Specific Collins 1.025 (1.002-1.030) Urine Protein TRACE (NEGATIVE) mg/dL Urine Glucose (UA) NEGATIVE (NEGATIVE) mg/dL Urine Ketones 15 H (NEGATIVE) mg/dL Urine Occult Blood SMALL H (NEGATIVE) Urine Nitrite NEGATIVE (NEGATIVE) Urine Bilirubin MODERATE H (NEGATIVE) Urine Urobilinogen 0.2 (NORMAL) (NORMAL) E.U./dL Ur Leukocyte Esterase NEGATIVE (NEGATIVE) Urine RBC 0-5 (0-5) /HPF Urine WBC 4-5 (0-5) /HPF Ur Squamous Epith Cells MANY Squamous H (<= Few) Urine Bacteria Few (None Seen) /HPF Ur Microscopic Review INDICATED Urine Culture Comments NOT INDICATED Nasal Adenovirus (PCR) Nasal B. parapertussis DNA (PCR) Nasal Coronavir 229E PCR Nasal Coronavir HKU1 PCR Nasal Coronavir NL63 PCR Nasal Coronavir OC43 PCR Nasal Enterovir/Rhinovir PCR Nasal Influenza B PCR Nasal Influenza A PCR Nasal Parainfluen 1 PCR Nasal Parainfluen 2 PCR Nasal Parainfluen 3 PCR Nasal Parainfluen 4 PCR Nasal RSV (PCR) Nasal B.pertussis DNA PCR Nasal C.pneumoniae (PCR) Jerry Human Metapneumo PCR Nasal M.pneumoniae (PCR) Nasal SARS-CoV-2 (PCR) Salicylates mg/dL Urine Opiates Screen NEGATIVE (NEGATIVE) Ur Buprenorphine Scrn NEGATIVE (NEGATIVE) Ur Oxycodone Screen NEGATIVE (NEGATIVE) Urine Methadone Screen NEGATIVE (NEGATIVE) Acetaminophen ug/mL Ur Barbiturates Screen NEGATIVE (NEGATIVE) Ur Tricyclics Screen NEGATIVE (NEGATIVE) Ur Phencyclidine Scrn NEGATIVE (NEGATIVE) Ur Amphetamine Screen NEGATIVE (NEGATIVE) U Methamphetamines Scrn NEGATIVE (NEGATIVE) U Benzodiazepines Scrn NEGATIVE (NEGATIVE) Urine Cocaine Screen NEGATIVE (NEGATIVE) U Cannabinoids Screen NEGATIVE (NEGATIVE) Ur Drug Screen Comment CUTOFF CONC BELOW: Ethyl Alcohol mg/dL 07/15/24 07/15/24 07/15/24 Range/Units 21:00 20:15 14:51 WBC 22.6 H 26.6 H (4.8-10.8) x10^3/uL RBC 4.02 L 4.32 (4.20-5.40) 10^6/uL Hgb 13.3 14.1 (12.0-16.0) g/dL Hct 37.5 40.2 (37.0-47.0) % MCV 93.3 93.1 (81.0-99.0) fL MCH 33.1 H 32.6 H (27.0-31.0) pg MCHC 35.5 35.1 (32.0-36.0) g/dL RDW 12.3 12.1 (12.0-15.0) % Plt Count 286 339 (130-450) 10^3/uL MPV 8.9 8.8 (7.9-10.8) fL Neut # (Auto) 20.2 H Not Reportable Lymph # (Auto) 1.1 L Not Reportable [place] # (Auto) 1.1 H Not Reportable Eos # (Auto) 0.1 Not Reportable Baso # (Auto) 0.1 Not Reportable Absolute Nucleated RBC 0.02 Not Reportable Total Counted 100 Band Neuts % (Manual) Not Reportable 3 (0 - 10) % Reactive Lymphs % (Man) 1 % Abnorm Lymph % (Manual) Not Reportable 0 % Metamyelocytes % 1 H ( - 0) % Nucleated RBC % 0.1 Not Reportable Neutrophils # (Manual) Not Reportable 23.7 H (1.5-6.6) 10^3/uL Lymphocytes # (Manual) Not Reportable 0.8 L (1.5-3.5) 10^3/uL Monocytes # (Manual) Not Reportable 1.9 H (0.0-1.0) 10^3/uL Eosinophils # (Manual) Not Reportable 0.0 (0-0.7) 10^3/uL Basophils # (Manual) Not Reportable 0.0 (0-0.1) 10^3/uL Differential Comment MANUAL=AUTO DIFF MANUAL DIFFERENTIAL Manual Slide Review Indicated WBC Morphology 1+ TOXIC GRANULATION 1+ SMUDGE CELLS (NORMAL) Platelet Estimate NORMAL (130-450,000) NORMAL (130-450,000) (NORMAL) Platelet Morphology NORMAL APPEARANCE LPLT (NORMAL) RBC Morph Micro Appear NORMAL APPEARANCE NORMAL APPEARANCE (NORMAL) PT 15.1 H 15.3 H (9.9-12.6) secs INR 1.4 H 1.4 H (0.8-1.2) APTT 22.6 L (24.9-33.3) secs Sodium 121 L (135-145) mmol/L Potassium 3.4 L (3.5-4.5) mmol/L Chloride 76 L* (101-111) mmol/L Carbon Dioxide 23 (21-32) mmol/L Anion Gap 22.0 H (6-13) BUN 37 H (6-20) mg/dL Creatinine 1.7 H (0.6-1.3) mg/dL Estimated GFR (MDRD) 30 L (>89) Glucose 186 H (74-104) mg/dL Calcium 9.5 (8.5-10.3) mg/dL Phosphorus (2.5-5.0) mg/dL Magnesium 1.8 (1.7-2.3) mg/dL Total Bilirubin 0.4 (0.2-1.0) mg/dL AST 31 (10-42) IU/L ALT 21 (10-60) IU/L Alkaline Phosphatase 94 (42-121) IU/L Ammonia 27.2 (18-72) umol/L Lactate Dehydrogenase (140-271) IU/L Total Creatine Kinase 1446 H* (30-223) IU/L Total Protein 7.6 (6.4-8.9) g/dL Albumin 3.7 (3.2-5.5) g/dL Globulin 3.9 (2.1-4.2) g/dL Albumin/Globulin Ratio 0.9 L (1.0-2.2) Lipase 46 (11-82) U/L Vitamin B12 1358 H (180-914) pg/mL Folate 5.8 L (5.90 - >24.8) ng/mL TSH 1.03 (0.34-5.60) uIU/mL Urine Color Urine Clarity (CLEAR) Urine pH (5.0-7.5) PH Ur Specific Collins (1.002-1.030) Urine Protein (NEGATIVE) mg/dL Urine Glucose (UA) (NEGATIVE) mg/dL Urine Ketones (NEGATIVE) mg/dL Urine Occult Blood (NEGATIVE) Urine Nitrite (NEGATIVE) Urine Bilirubin (NEGATIVE) Urine Urobilinogen (NORMAL) E.U./dL Ur Leukocyte Esterase (NEGATIVE) Urine RBC (0-5) /HPF Urine WBC (0-5) /HPF Ur Squamous Epith Cells (<= Few) Urine Bacteria (None Seen) /HPF Ur Microscopic Review Urine Culture Comments Nasal Adenovirus (PCR) NOT DETECTED Nasal B. parapertussis DNA (PCR) NOT DETECTED Nasal Coronavir 229E PCR NOT DETECTED Nasal Coronavir HKU1 PCR NOT DETECTED Nasal Coronavir NL63 PCR NOT DETECTED Nasal Coronavir OC43 PCR NOT DETECTED Nasal Enterovir/Rhinovir PCR NOT DETECTED Nasal Influenza B PCR NOT DETECTED Nasal Influenza A PCR NOT DETECTED Nasal Parainfluen 1 PCR NOT DETECTED Nasal Parainfluen 2 PCR NOT DETECTED Nasal Parainfluen 3 PCR NOT DETECTED Nasal Parainfluen 4 PCR NOT DETECTED Nasal RSV (PCR) NOT DETECTED Nasal B.pertussis DNA PCR NOT DETECTED Nasal C.pneumoniae (PCR) NOT DETECTED Jerry Human Metapneumo PCR NOT DETECTED Nasal M.pneumoniae (PCR) NOT DETECTED Nasal SARS-CoV-2 (PCR) NOT DETECTED Salicylates < 1.5 mg/dL Urine Opiates Screen (NEGATIVE) Ur Buprenorphine Scrn (NEGATIVE) Ur Oxycodone Screen (NEGATIVE) Urine Methadone Screen (NEGATIVE) Acetaminophen 0.1 ug/mL Ur Barbiturates Screen (NEGATIVE) Ur Tricyclics Screen (NEGATIVE) Ur Phencyclidine Scrn (NEGATIVE) Ur Amphetamine Screen (NEGATIVE) U Methamphetamines Scrn (NEGATIVE) U Benzodiazepines Scrn (NEGATIVE) Urine Cocaine Screen (NEGATIVE) U Cannabinoids Screen (NEGATIVE) Ur Drug Screen Comment Ethyl Alcohol < 10.0 mg/dL Assessment/Plan Problem List (1) Hyponatremia: Impression: She had 1 sodium result at 141 early this morning. I suspect this is drawn proximal to the saline After current bag of NS is finished, switch to 0.45%, Rate 150 Continue every 4 sodium checks, goal for 6-8 increase over 24 hours Patient is having soft blood pressures, but we have to be careful with fluid resuscitation given her hyponatremia. Adding midodrine (2) Rhabdomyolysis: Impression: CR 0.9 today Continue aggressive IV fluid resuscitation, adjusting type of fluids for hyponatremia (3) Alcohol withdrawal: Impression: Patient is calm and oriented at time of my interview DC Librium given soft blood pressures Continue as needed Ativan Multivitamin, thiamine Qualifiers: Complication of substance-induced condition: uncomplicated Qualified Code(s): F10.930 - Alcohol use, unspecified with withdrawal, uncomplicated (4) Closed fracture of right condylar process of mandible: Impression: Soft diet OMFS contacted by ER physician, no surgical intervention necessary (5) Fracture of neck of left humerus: Impression: Keep left arm in sling, follow-up with Ortho outpatient
[2024-07-16] MEDS ORDERED: CIPROFLOXACIN 250 MG TABLET PO SCH (09:00)
[2024-07-16] MEDS ORDERED: LACTULOSE 10 GM /15 ML UDC PO SCH (09:00)
[2024-07-16] MEDS: POTASSIUM CHLORIDE 20 MEQ/15 ML UDC PO SCH (09:02)
[2024-07-16] MEDS: PRENATAL VITAMIN TABLET PO SCH (09:02)
[2024-07-16] MEDS: NEUTRA-PHOS 250 MG TABLET PO SCH (09:03)
[2024-07-16] MEDS: THIAMINE 100 MG TABLET PO SCH (09:03)
--- NOTE | 2024-07-16 09:23 | PHARMACY PROGRESS NOTE ---
Best Possible Medication History Admit Date and Time: 07/15/24 1737 Home Medications Medication Instructions Recorded Confirmed Type mirtazapine 15 mg tablet 7.5 mg (1/2 x 15 mg) PO DAILY 12/17/23 07/16/24 Rx depression #30 tabs Processed by: Pharmacy Medications reviewed in ED?: No Medication History completed: Yes Patient Interview: Completed [facility] Statement: As the person ultimately responsible for medication therapy, providers are able to order a medication from an existing home medication list in [facility] via the "Reconcile Routine" prior to Confirmation of that medication by ict support technicians. Such practice is discouraged except when the physician, in their clinical judgment, deems that a medical need exists for a medication without regard to previous use.
[2024-07-16] MEDS ORDERED: [UNRECOGNIZED DRUG - OTHER] IV SCH (12:00)
[2024-07-16] MEDS ORDERED: MAGNESIUM SULFATE IV SCH (12:00)
[2024-07-16] MEDS ORDERED: MULTIVITAMIN IV SCH (12:00)
[2024-07-16] MEDS ORDERED: THIAMINE IV SCH (12:00)
[2024-07-16] MEDS ORDERED: FOLIC ACID IV SCH (12:00)
[2024-07-16] MEDS: SODIUM CHLORIDE 0.9% 1,000 ML IV SCH ×2 (13:08→15:24)
--- NOTE | 2024-07-16 13:18 | MISCELLANEOUS PROVIDER NOTE ---
Miscellaneous Provider Note - Note: Was informed that recommendation came from OMFS for follow-up within 1 week. Soft diet, she should not blow her nose
[2024-07-16] MEDS: SODIUM CHLORIDE 0.9% 500 ML IV ONE ×2 (20:51→22:41)
[2024-07-16] MEDS: MIRTAZAPINE 15 MG TABLET PO SCH (21:48)
[2024-07-16] MEDS: MELATONIN 3 MG TABLET PO SCH (21:48)
[2024-07-17] MEDS: MIDODRINE 10 MG TABLET PO PRN (04:39)
[2024-07-17 05:53] LABS: BASOPHILS # (AUTO) 0.1 10^3/uL (0.0-0.1); BASOPHILS % (AUTO) 0.4 %; EOSINOPHILS # (AUTO) 0.1 10^3/uL (0.0-0.7); EOSINOPHILS % (AUTO) 0.4 %; HCT - HEMATOCRIT 29.5 % (37.0-47.0); HGB - HEMOGLOBIN 9.6 g/dL (12.0-16.0); LYMPHOCYTES # (AUTO) 1.4 10^3/uL (1.5-3.5); LYMPHOCYTES % (AUTO) 11.1 %; MEAN CORPUSCULAR HEMOGLOBIN 32.8 pg (27.0-31.0); MEAN CORPUSCULAR HGB CONC 32.5 g/dL (32.0-36.0); MEAN CORPUSCULAR VOLUME 100.7 fL (81.0-99.0); MEAN PLATELET VOLUME 8.8 fL (7.9-10.8); MONOCYTES # (AUTO) 0.9 10^3/uL (0.0-1.0); MONOCYTES % (AUTO) 7.3 %; NEUTROPHILS # (AUTO) 10.3 10^3/uL (1.5-6.6); PLT - PLATELET COUNT 208 10^3/uL (130-450); RED BLOOD COUNT 2.93 10^6/uL (4.20-5.40); RED CELL DISTRIBUTION WIDTH 12.6 % (12.0-15.0); WHITE BLOOD COUNT 12.8 x10^3/uL (4.8-10.8)
[2024-07-17 06:03] LABS: CALCIUM 7.2 mg/dL (8.5-10.3); CREATININE 0.5 mg/dL (0.6-1.3); MAGNESIUM 1.8 mg/dL (1.7-2.3); PHOSPHORUS 2.2 mg/dL (2.5-5.0); POTASSIUM 3.6 mmol/L (3.5-4.5)
--- NOTE | 2024-07-17 08:31 | PROVIDER PROGRESS NOTE ---
Subjective Prog Note Date Prog Note Date: 07/17/24 Subjective Pt reports feeling: Improved Current Medications Current Medications Current Medications: Current Medications Generic Name Dose Route Start Last Admin Trade Name Nevaeh PRN Reason Stop Dose Admin Acetaminophen 1,000 mg 07/15/24 22:00 07/17/24 05:26 Acetaminophen 500 Mg Tablet PO 07/18/24 21:59 1,000 mg TID ALFREDA Administration Sodium Chloride 1,000 mls @ 200 mls/hr 07/16/24 13:00 07/17/24 07:45 Normal Saline 0.9% IV 200 mls/hr .Q5H ALFREDA Infusion Lorazepam 1 mg 07/15/24 19:33 Lorazepam 2 Mg/Ml Vial IVP Q30M PRN CIWA >8 Protocol Lorazepam 1 mg 07/15/24 19:33 Lorazepam 1 Mg Tablet PO Q1H PRN CIWA > 8 Protocol Melatonin 3 mg 07/16/24 21:00 07/16/24 21:48 Melatonin 3 Mg Tablet PO Not Given QPM ALFREDA Midodrine 10 mg 07/16/24 22:30 Midodrine 10 Mg Tablet PO 07/17/24 22:29 ONCE PRN SBP<90 Midodrine 10 mg 07/17/24 08:00 Midodrine 10 Mg Tablet PO TIDWM ALFREDA Mirtazapine 7.5 mg 07/16/24 21:00 07/16/24 21:48 Mirtazapine 15 Mg Tablet PO Not Given QPM ALFREDA Ondansetron HCl 4 mg 07/15/24 19:33 Ondansetron Odt 4 Mg Tablet TL Q6HR PRN Nausea / Vomiting Ondansetron HCl 4 mg 07/15/24 19:33 Ondansetron 4 Mg/2 Ml Vial IVP Q6HR PRN Nausea / Vomiting Potassium Chloride 40 meq 07/16/24 08:00 07/16/24 09:02 Potassium Chloride 20 Meq/15 Ml Udc PO 40 meq DAILYWM ALFREDA Administration Multivit/Folic Acid/Iron 1 tab 07/16/24 09:00 07/16/24 09:02 Vitamin Tablet PO 1 tab DAILY ALFREDA Administration Sodium Chloride 10 ml 07/15/24 19:33 Sodium Chloride Flush 0.9% 10 Ml Syringe IVP PRN PRN NEEDED PER PROVIDER ORDERS Sodium Chloride 10 ml 07/16/24 01:00 07/17/24 00:37 Sodium Chloride Flush 0.9% 10 Ml Syringe IVP Not Given 0100,0900,1700 ALFREDA Sodium Chloride 2 gm 07/17/24 09:00 Sodium Chloride 1 Gm Tablet PO BID ALFREDA Sodium Phosphate 250 mg 07/16/24 08:00 07/16/24 16:17 Neutra-Phos 250 Mg Tablet PO 250 mg TIDWM ALFREDA Administration Thiamine HCl 100 mg 07/16/24 09:00 07/16/24 09:03 Thiamine 100 Mg Tablet PO 100 mg DAILY ALFREDA Administration Objective Vital Signs/Intake & Output Reviewed Vital Signs: Yes Vital Signs: Vital Signs x48h Temp Pulse Resp BP BP Pulse Ox O2 Flow Rate 07/17/24 08:18 36.2 C L 88 16 94/61 91 L 2 07/17/24 04:47 104/69 07/17/24 04:21 36.3 C L 86 18 89/53 L 99 2 Intake & Output: Intake & Output 07/14/24 07/15/24 07/16/24 07/17/24 23:59 23:59 23:59 23:59 Intake Total 2611.2 / 2611.2 7662 / 7662 1757 / 1757 Output Total 1235 / 1235 1050 / 1050 Balance 2611.2 / 2611.2 6427 / 6427 707 / 707 Weight (kg) 48 kg Objective General Appearance: positive No acute distress and Alert Eyes Bilateral: positive Normal inspection Respiratory: positive Chest non-tender, No respiratory distress and Breath sounds nml Cardiovascular: positive Regular rate & rhythm Abdomen: negative Non-tender (Tenderness to deep palpation right upper quad) or No distention Skin: positive Color nml Extremities: positive Non-tender Neurologic/Psychiatric: positive Oriented x3 Lab Results 07/17/24 05:18 07/17/24 05:18 Other Labs: Lab Results x24hrs 07/17/24 07/17/24 07/16/24 Range/Units 05:18 02:00 21:30 WBC 12.8 H (4.8-10.8) x10^3/uL RBC 2.93 L (4.20-5.40) 10^6/uL Hgb 9.6 L (12.0-16.0) g/dL Hct 29.5 L (37.0-47.0) % MCV 100.7 H (81.0-99.0) fL MCH 32.8 H (27.0-31.0) pg MCHC 32.5 (32.0-36.0) g/dL RDW 12.6 (12.0-15.0) % Plt Count 208 (130-450) 10^3/uL MPV 8.8 (7.9-10.8) fL Neut # (Auto) 10.3 H (1.5-6.6) 10^3/uL Lymph # (Auto) 1.4 L (1.5-3.5) 10^3/uL [place] # (Auto) 0.9 (0.0-1.0) 10^3/uL Eos # (Auto) 0.1 (0.0-0.7) 10^3/uL Baso # (Auto) 0.1 (0.0-0.1) 10^3/uL Absolute Nucleated RBC 0.00 x10^3/uL Nucleated RBC % 0.0 /100WBC Sodium 129 L 129 L 129 L (135-145) mmol/L Potassium 3.6 (3.5-4.5) mmol/L Chloride 101 (101-111) mmol/L Carbon Dioxide 22 (21-32) mmol/L Anion Gap 6.0 (6-13) BUN 14 (6-20) mg/dL Creatinine 0.5 L (0.6-1.3) mg/dL Estimated GFR (MDRD) 125 (>89) Glucose 72 L (74-104) mg/dL Calcium 7.2 L (8.5-10.3) mg/dL Phosphorus 2.2 L (2.5-5.0) mg/dL Magnesium 1.8 (1.7-2.3) mg/dL 07/16/24 07/16/24 07/16/24 Range/Units 17:18 13:24 09:37 WBC (4.8-10.8) x10^3/uL RBC (4.20-5.40) 10^6/uL Hgb (12.0-16.0) g/dL Hct (37.0-47.0) % MCV (81.0-99.0) fL MCH (27.0-31.0) pg MCHC (32.0-36.0) g/dL RDW (12.0-15.0) % Plt Count (130-450) 10^3/uL MPV (7.9-10.8) fL Neut # (Auto) (1.5-6.6) 10^3/uL Lymph # (Auto) (1.5-3.5) 10^3/uL [place] # (Auto) (0.0-1.0) 10^3/uL Eos # (Auto) (0.0-0.7) 10^3/uL Baso # (Auto) (0.0-0.1) 10^3/uL Absolute Nucleated RBC x10^3/uL Nucleated RBC % /100WBC Sodium 126 L 125 L 124 L (135-145) mmol/L Potassium (3.5-4.5) mmol/L Chloride (101-111) mmol/L Carbon Dioxide (21-32) mmol/L Anion Gap (6-13) BUN (6-20) mg/dL Creatinine (0.6-1.3) mg/dL Estimated GFR (MDRD) (>89) Glucose (74-104) mg/dL Calcium (8.5-10.3) mg/dL Phosphorus (2.5-5.0) mg/dL Magnesium (1.7-2.3) mg/dL Assessment/Plan Problem List (1) Hyponatremia: Impression: Left sodium 129 NS at 200 Adding salt pills Continue every 4 sodium checks until sodium greater than 130 She has had low blood pressures overnight. Increasing her midodrine to 10 mg p.o. 3 times daily (2) Rhabdomyolysis: Impression: CR 0.5 today On aggressive IV fluid resuscitation for hyponatremia Recheck CK in a.m. (3) Alcohol withdrawal: Impression: I suspect that patient withdrew well she was at home, as she has not had any major withdrawal symptoms and spite of her excessive alcohol use Librium has been DC'd Ativan is still ordered as needed Multivitamin, thiamine Qualifiers: Complication of substance-induced condition: uncomplicated Qualified Code(s): F10.930 - Alcohol use, unspecified with withdrawal, uncomplicated (4) Closed fracture of right condylar process of mandible: Impression: Soft diet Patient is not to blow her nose Follow-up with OMFS 1 week after discharge (5) Fracture of neck of left humerus: Impression: Keep left arm in sling, follow-up with Ortho outpatient
[2024-07-17] MEDS: SODIUM CHLORIDE 1 GM TABLET PO SCH (08:42)
[2024-07-17] MEDS: MIDODRINE 10 MG TABLET PO SCH (08:43)
[2024-07-17] MEDS ORDERED: MAGIC MOUTHWASH 120 ML BOTTLE PO PRN (12:46)
[2024-07-17] MEDS: HYDROcodone/ACETAM 7.5 MG/325 MG 15 ML UDC PO PRN (13:40)
[2024-07-17] MEDS: ACETAMINOPHEN 325 MG TABLET PO SCH (13:47)
[2024-07-17] MEDS: CHOLECALCIFEROL 25 MCG TABLET PO SCH (13:47)
[2024-07-17] MEDS: CALCIUM CARBONATE CHEW 500 MG TABLET PO SCH (14:06)
[2024-07-17] MEDS: PRENATAL VITAMIN TABLET PO SCH (14:28)
[2024-07-17] MEDS: KETOROLAC 15 MG/ML VIAL IVP PRN (18:46)
[2024-07-17] MEDS: SODIUM CHLORIDE FLUSH 0.9% 10 ML SYRINGE IVP PRN (20:33)
--- NOTE | 2024-07-18 00:46 | PROVIDER PROGRESS NOTE ---
[employer] Principal Note [employer] Principal Note [employer] Principal Note: pt with some crackles on CXR, feeling ok decrease ivf rate to 100/hr cxr continue monitoring
[2024-07-18] MEDS: SODIUM CHLORIDE 0.9% 1,000 ML IV SCH (02:33)
[2024-07-18 04:48] LABS: BASOPHILS # (AUTO) 0.1 10^3/uL (0.0-0.1); BASOPHILS % (AUTO) 1.1 %; EOSINOPHILS # (AUTO) 0.1 10^3/uL (0.0-0.7); EOSINOPHILS % (AUTO) 1.2 %; HCT - HEMATOCRIT 29.2 % (37.0-47.0); HGB - HEMOGLOBIN 9.5 g/dL (12.0-16.0); LYMPHOCYTES # (AUTO) 1.5 10^3/uL (1.5-3.5); LYMPHOCYTES % (AUTO) 19.7 %; MEAN CORPUSCULAR HEMOGLOBIN 32.4 pg (27.0-31.0); MEAN CORPUSCULAR HGB CONC 32.5 g/dL (32.0-36.0); MEAN CORPUSCULAR VOLUME 99.7 fL (81.0-99.0); MEAN PLATELET VOLUME 8.6 fL (7.9-10.8); MONOCYTES # (AUTO) 0.7 10^3/uL (0.0-1.0); MONOCYTES % (AUTO) 8.7 %; NEUTROPHILS # (AUTO) 5.1 10^3/uL (1.5-6.6); NEUTROPHILS % (AUTO) 68.4 %; PLT - PLATELET COUNT 219 10^3/uL (130-450); RED BLOOD COUNT 2.93 10^6/uL (4.20-5.40); RED CELL DISTRIBUTION WIDTH 12.8 % (12.0-15.0); WHITE BLOOD COUNT 7.5 x10^3/uL (4.8-10.8)
[2024-07-18 05:01] LABS: CALCIUM 7.2 mg/dL (8.5-10.3); CREATININE 0.5 mg/dL (0.6-1.3); MAGNESIUM 1.3 mg/dL (1.7-2.3); PHOSPHORUS 3.5 mg/dL (2.5-5.0); POTASSIUM 3.3 mmol/L (3.5-4.5)
[2024-07-18] MEDS: MAGNESIUM SULFATE 2 GRAM 2 GM/50 ML BAG IV ONE (09:02)
[2024-07-18] MEDS: POTASSIUM CHLORIDE 20 MEQ/15 ML UDC PO ONE (10:05)
[2024-07-18] MEDS: CALCIUM CARBONATE CHEW 500 MG TABLET PO SCH (10:05)
--- NOTE | 2024-07-18 10:56 | XRAY Report ---
PROCEDURE: XR Chest 1V INDICATIONS: Abnormal breath sounds, rhonchi or rales, crackles per notes TECHNIQUE: One view of the chest was acquired. COMPARISON: Chest x-ray December 16, 2023 FINDINGS: New right lower hemithorax consolidation partially obscures the right hemidiaphragm and costophrenic angle commonly represents a combination of small pleural effusion, atelectatic changes, alveolar opac ification, pneumonia or other process. Increased moderate bilateral diffuse peribronchial thickening and patchy predominantly right greater than left lower lobe opacities. Bronchitis, viral infection, bronchopneumonia, or other process britney uld be considered. Follow-up is needed. Mildly prominent yareli, mild pulmonary vascular congestion and/or hilar lymph nodes mildly increased. Mild calcifications of the aortic arch unchanged. No pneumothorax. Cardiopericardial silhouette within normal limits in size. IMPRESSION: New right lower hemithorax consolidation as discussed above. Increased moderate bilateral peribronchial thickening opacities as discussed above. Mildly prominent yareli, increased. Follow-up is needed. If symptoms persist or worsen, CT chest could be performed. Reviewed by: Kane Spear MD on 07/18/2024 10:54 AM PST Approved by: Kane Spear MD on 07/18/2024 10:54 AM PST Station ID: [id number]
--- NOTE | 2024-07-18 13:00 | PT Plan of Care ---
PT Inpatient Plan of Care DIAGNOSIS Diagnosis: fall w/ L humeral neck fx, facial fx's Diagnosis: rhabdo Referring Provider: Zeb Escobar Patient Status: Observation CHIEF COMPLAINT Chief Complaint: weakness, limited mobility Onset of Chief Complaint: SCIENTIFIC DIRECTOR BALANCE/FUNCTIONAL RESULTS Sitting Balance: Fair Standing Balance: Poor ASSESSMENT Assessment: Pt is a 64yo F referred for PT eval s/p fall with L humeral neck and facial fx's. Pt is known to this PT having previously treated her in acute setting approx 6 months ago for deconditioning and limited mobility. Per chart review, pt lives in a single story home indep, has a walk in shower with a shower chair and is indep at baseline including driving. Pt's passed approx 1-2 yrs ago and pt has been less mobile with increased depression since. Pt's son "Jono" [place] the [place]. PMH includes frequent falls, elbow and hip fx's. Upon PT eval today, pt denies pain at rest, transfers to EOB w/ minAx1. RN present and assisting with transfers. Reports increased pain and reluctant to progress mobility, but ultimately agrees to complete SPT to commode. Pt able to transfer with TENSILE TESTER and maxAx2, improved transfer safety using FWW and modAx2. Of note this is a significant decline in mobility compared to previous admission when pt was able to transfer with SBA and amb w/ FWW x8'-20'. Pt may benefit from continued PT in acute setting to progress activity tolerance and ambulation distance. When medically clear, PT rec dc to SNF vs LTC placement pending pt's ability to participate and progress with PT. PATIENT/FAMILY GOALS Patient/Family Goals: none stated GOALS Improve supine to sit to:: Modified Independent Improve sit to stand to:: Minimal Assist Improve pivot transfer ability to:: Minimal Assist Improve sit to supine to:: Minimal Assist Improve gait ability to:: Min A Advance Assistive Device to:: Front Wheeled Walker and Palliative Senior Np Walker Increase distance walked to (in feet):: 30 Reduce verbal cues to:: 1 Other gait goal:: pt may benefit from hemiwalker vs FWW, will trial at next session Improve Sitting Balance to:: Good PLAN Frequency: 1-2x/day Duration: Until goals are met DISCHARGE RECOMMENDATIONS Discharge Location: SNF v LTC DC Equipment Recommended: Front wheeled walker Other Discharge Equipment: TBD Transport Needs at Discharge: B.L.S Other: BLS d/t humeral neck fracture, poor upright tolerance
--- NOTE | 2024-07-18 14:35 | PROVIDER PROGRESS NOTE ---
Subjective Prog Note Date Prog Note Date: 07/18/24 Subjective Pt reports feeling: Improved Current Medications Current Medications Current Medications: Current Medications Generic Name Dose Route Start Last Admin Trade Name Nevaeh PRN Reason Stop Dose Admin Acetaminophen 650 mg 07/17/24 14:00 07/18/24 06:27 Acetaminophen 325 Mg Tablet PO 07/20/24 13:59 650 mg TID ALFREDA Administration Hydrocodone Bitart/Acetaminophen 15 ml 07/17/24 12:46 07/17/24 13:40 Hydrocodone/Acetam 7.5 Mg/325 Mg 15 Ml Udc PO 15 ml Q6HR PRN Administration Moderate Pain (Level 4-6) Calcium Carbonate/Glycine 500 mg 07/18/24 10:00 07/18/24 10:05 Calcium Carbonate Chew 500 Mg Tablet PO 500 mg 1000 ALFREDA Administration Cholecalciferol 50 mcg 07/17/24 12:00 07/18/24 09:04 Cholecalciferol 25 Mcg Tablet PO 50 mcg DAILY ALFREDA Administration Ketorolac Tromethamine 15 mg 07/17/24 15:22 07/18/24 04:06 Ketorolac 15 Mg/Ml Vial IVP 07/22/24 15:21 15 mg Q6HR PRN Administration Severe Pain (Level 7-10) Lorazepam 1 mg 07/15/24 19:33 Lorazepam 2 Mg/Ml Vial IVP Q30M PRN CIWA >8 Protocol Lorazepam 1 mg 07/15/24 19:33 Lorazepam 1 Mg Tablet PO Q1H PRN CIWA > 8 Protocol Melatonin 3 mg 07/16/24 21:00 07/17/24 20:31 Melatonin 3 Mg Tablet PO 3 mg QPM ALFREDA Administration Midodrine 10 mg 07/17/24 08:00 07/18/24 09:04 Midodrine 10 Mg Tablet PO 10 mg TIDWM ALFREDA Administration Mirtazapine 7.5 mg 07/16/24 21:00 07/17/24 20:31 Mirtazapine 15 Mg Tablet PO 7.5 mg QPM ALFREDA Administration Multi-Ingredient Mouthwash/Gargle 30 ml 07/17/24 12:46 Magic Mouthwash 120 Ml Bottle PO Q4H PRN Mouth Sore Pain Ondansetron HCl 4 mg 07/15/24 19:33 Ondansetron Odt 4 Mg Tablet TL Q6HR PRN Nausea / Vomiting Ondansetron HCl 4 mg 07/15/24 19:33 Ondansetron 4 Mg/2 Ml Vial IVP Q6HR PRN Nausea / Vomiting Potassium Chloride 40 meq 07/16/24 08:00 07/18/24 09:05 Potassium Chloride 20 Meq/15 Ml Udc PO 40 meq DAILYWM ALFREDA Administration Multivit/Folic Acid/Iron 1 tab 07/17/24 15:00 07/18/24 10:05 Vitamin Tablet PO 1 tab DAILY@1000 ALFREDA Administration Sodium Chloride 10 ml 07/15/24 19:33 07/17/24 20:33 Sodium Chloride Flush 0.9% 10 Ml Syringe IVP 10 ml PRN PRN Administration NEEDED PER PROVIDER ORDERS Sodium Chloride 10 ml 07/16/24 01:00 07/18/24 09:04 Sodium Chloride Flush 0.9% 10 Ml Syringe IVP 10 ml 0100,0900,1700 ALFREDA Administration Sodium Chloride 2 gm 07/17/24 09:00 07/18/24 09:04 Sodium Chloride 1 Gm Tablet PO 2 gm BID ALFREDA Administration Sodium Phosphate 250 mg 07/16/24 08:00 07/18/24 09:03 Neutra-Phos 250 Mg Tablet PO 250 mg TIDWM ALFREDA Administration Thiamine HCl 100 mg 07/16/24 09:00 07/18/24 09:04 Thiamine 100 Mg Tablet PO 100 mg DAILY ALFREDA Administration Objective Vital Signs/Intake & Output Reviewed Vital Signs: Yes Vital Signs: Vital Signs x48h Temp Pulse Resp BP Pulse Ox O2 Flow Rate 07/18/24 13:34 36.3 C L 90 18 95/61 96 07/18/24 07:32 36.3 C L 87 18 83/58 L 94 07/18/24 06:30 4 Intake & Output: Intake & Output 07/15/24 07/16/24 07/17/24 07/18/24 23:59 23:59 23:59 23:59 Intake Total 2611.2 / 2611.2 7662 / 7662 4040 / 4040 1715 / 1715 Output Total 1235 / 1235 2325 / 2325 1100 / 1100 Balance 2611.2 / 2611.2 6427 / 6427 1715 / 1715 615 / 615 Weight (kg) 48 kg Objective General Appearance: positive No acute distress and Alert Eyes Bilateral: positive Other (Bruised on left side of face) ENT: positive ENT inspection nml Respiratory: positive Chest non-tender and No respiratory distress Cardiovascular: positive Regular rate & rhythm and No murmur Abdomen: positive Non-tender Skin: positive Other (Bruising on left arm, left side face) Extremities: positive Non-tender (Pain in left arm from broken humeral neck) Neurologic/Psychiatric: positive Other (Orientation comes and goes. Follows commands) Lab Results 07/18/24 04:32 07/18/24 09:09 Other Labs: Lab Results x24hrs 07/18/24 07/18/24 07/18/24 Range/Units 09:09 06:45 04:32 WBC 7.5 (4.8-10.8) x10^3/uL RBC 2.93 L (4.20-5.40) 10^6/uL Hgb 9.5 L (12.0-16.0) g/dL Hct 29.2 L (37.0-47.0) % MCV 99.7 H (81.0-99.0) fL MCH 32.4 H (27.0-31.0) pg MCHC 32.5 (32.0-36.0) g/dL RDW 12.8 (12.0-15.0) % Plt Count 219 (130-450) 10^3/uL MPV 8.6 (7.9-10.8) fL Neut # (Auto) 5.1 (1.5-6.6) 10^3/uL Lymph # (Auto) 1.5 (1.5-3.5) 10^3/uL [place] # (Auto) 0.7 (0.0-1.0) 10^3/uL Eos # (Auto) 0.1 (0.0-0.7) 10^3/uL Baso # (Auto) 0.1 (0.0-0.1) 10^3/uL Absolute Nucleated RBC 0.00 x10^3/uL Nucleated RBC % 0.0 /100WBC Sodium 132 L 132 L 133 L (135-145) mmol/L Potassium 3.3 L (3.5-4.5) mmol/L Chloride 103 (101-111) mmol/L Carbon Dioxide 25 (21-32) mmol/L Anion Gap 5.0 L (6-13) BUN 6 (6-20) mg/dL Creatinine 0.5 L (0.6-1.3) mg/dL Estimated GFR (MDRD) 125 (>89) Glucose 79 (74-104) mg/dL Calcium 7.2 L (8.5-10.3) mg/dL Phosphorus 3.5 (2.5-5.0) mg/dL Magnesium 1.3 L (1.7-2.3) mg/dL Total Creatine Kinase 212 (30-223) IU/L Random Cortisol 11.2 ug/dL 07/17/24 07/17/24 07/17/24 Range/Units 22:55 18:59 14:52 WBC (4.8-10.8) x10^3/uL RBC (4.20-5.40) 10^6/uL Hgb (12.0-16.0) g/dL Hct (37.0-47.0) % MCV (81.0-99.0) fL MCH (27.0-31.0) pg MCHC (32.0-36.0) g/dL RDW (12.0-15.0) % Plt Count (130-450) 10^3/uL MPV (7.9-10.8) fL Neut # (Auto) (1.5-6.6) 10^3/uL Lymph # (Auto) (1.5-3.5) 10^3/uL [place] # (Auto) (0.0-1.0) 10^3/uL Eos # (Auto) (0.0-0.7) 10^3/uL Baso # (Auto) (0.0-0.1) 10^3/uL Absolute Nucleated RBC x10^3/uL Nucleated RBC % /100WBC Sodium 132 L 129 L 129 L (135-145) mmol/L Potassium (3.5-4.5) mmol/L Chloride (101-111) mmol/L Carbon Dioxide (21-32) mmol/L Anion Gap (6-13) BUN (6-20) mg/dL Creatinine (0.6-1.3) mg/dL Estimated GFR (MDRD) (>89) Glucose (74-104) mg/dL Calcium (8.5-10.3) mg/dL Phosphorus (2.5-5.0) mg/dL Magnesium (1.7-2.3) mg/dL Total Creatine Kinase (30-223) IU/L Random Cortisol ug/dL Diagnostic Imaging Diagnostic Imaging Results: positive Final report reviewed Diagnostic Imaging Comments: CXR with new right lower lobe opacities Assessment/Plan Problem List (1) Alcohol withdrawal: Impression: I suspect that patient withdrew while she was at home, as she has not had any major withdrawal symptoms and spite of her excessive alcohol use Librium has been DC'd Ativan is still ordered as needed Multivitamin, thiamine Patient still has waxing and waning orientation, will increase dose of thiamine to 400 mg p.o. daily PT recommends SNF versus LTC Chest x-ray ordered overnight shows opacities in the right lower lobe. It would not be unreasonable to assume that this is an aspiration pneumonia, however patient has had no fevers and her white blood cell count has trended towards normal without antibiotics. Adding on a procalcitonin in the morning. Differentials include fluid overload from aggressive IV Fluids Qualifiers: Complication of substance-induced condition: uncomplicated Qualified Code(s): F10.930 - Alcohol use, unspecified with withdrawal, uncomplicated (2) Hyponatremia: Impression: Last sodium 132 DC NS Continue salt pills De-escalate sodium checks to daily BMPs (3) Rhabdomyolysis: Impression: Total CK is down to 212 Creatinine normal Discontinue IV fluids (4) Closed fracture of right condylar process of mandible: Impression: Soft diet Patient is not to blow her nose Follow-up with OMFS 1 week after discharge (5) Fracture of neck of left humerus: Impression: Keep left arm in sling, follow-up with Ortho outpatient
--- NOTE | 2024-07-18 14:51 | ADVANCE CARE PLANNING NOTE ---
Advance Care Planning Planning Encounter Date: 07/18/24 Time: 13:00 Purpose: To establish a plan of care going forward Parties in Attendance: Son/POA Social work Family friends x 2 Decisional Capacity of the Patient: Patient is not competent to make decisions at this time given acute illness Diagnosis for Encounter (1) Alcohol withdrawal: Qualifiers: Complication of substance-induced condition: uncomplicated Qualified Code(s): F10.930 - Alcohol use, unspecified with withdrawal, uncomplicated Summary: Patient has had multiple admissions for alcohol abuse and withdrawal. She has been drinking heavily since the of her . In discussion with her son, it was revealed that she keeps boxes of wine next to the sink in the kitchen that nobody else is allowed to go near. The presumption is that she stands there and drinks all day and then vomits into the sink. She is been noted to make up explanations for her behavior. She told the medics that she decided to sleep on the floor for the past 5 days when asked why she was on the floor. Son expressed concern that this cycle will continue. He states that he believes that she wants to . She is not suicidal, but does not care if she lives. His concern is that he would like to preserve as much dignity as he can for her so that she does not in a pool of her own vomit. Discussed possibility of court appointed surrogate. Recommendations were given for consultation with an senior trial attorney and initiating the process to make her a valencia of the state. (2) Hyponatremia: Summary: Repleted and resolved (3) Rhabdomyolysis: Summary: Resolved after IVF (4) Closed fracture of right condylar process of mandible: Summary: Stable, to be managed outpatient (5) Fracture of neck of left humerus: Summary: Stable, to be managed outpatient Encounter Subjective/Patient's Story: Patient has been drinking heavily since the of her . She no longer goes outside, but tells her family and friends that she does. She has some friends that she pays to mow her yard and to do minor tasks around the house. She maintains delusion of being independent at home so that no one will check on her. She has had multiple instances of coming into the hospital for complications of her alcoholism, being sent to long-term care, her mentation improves when she is compliant with her medication regimen. She will then sign herself out AGAINST MEDICAL ADVICE and go home only to repeat the process Objective/Medical Story: Alcohol abuse with several instances of withdrawal as described above Goals of Care: Per son, goal is to maintain dignity. He understands that In her demented state, it would be a downward spiral as far as quality of life goes. His only request is that she not in a puddle of vomit. He will contact a statistical programmer and initiate the process to establish a court ordered surrogate Plan: Medically optimize patient Son will pursue state appointed surrogacy Code Status: Do Not Attempt Resuscitation Time spent on advance care plannin
[2024-07-18] MEDS: THIAMINE 100 MG TABLET PO SCH (16:49)
[2024-07-19 05:04] LABS: BASOPHILS # (AUTO) 0.1 10^3/uL (0.0-0.1); BASOPHILS % (AUTO) 0.9 %; EOSINOPHILS # (AUTO) 0.1 10^3/uL (0.0-0.7); EOSINOPHILS % (AUTO) 1.6 %; HCT - HEMATOCRIT 29.4 % (37.0-47.0); HGB - HEMOGLOBIN 9.5 g/dL (12.0-16.0); LYMPHOCYTES # (AUTO) 1.8 10^3/uL (1.5-3.5); LYMPHOCYTES % (AUTO) 22.3 %; MEAN CORPUSCULAR HEMOGLOBIN 31.9 pg (27.0-31.0); MEAN CORPUSCULAR HGB CONC 32.3 g/dL (32.0-36.0); MEAN CORPUSCULAR VOLUME 98.7 fL (81.0-99.0); MEAN PLATELET VOLUME 8.6 fL (7.9-10.8); MONOCYTES # (AUTO) 0.9 10^3/uL (0.0-1.0); NEUTROPHILS % (AUTO) 63.3 %; PLT - PLATELET COUNT 285 10^3/uL (130-450); RED BLOOD COUNT 2.98 10^6/uL (4.20-5.40); WHITE BLOOD COUNT 7.9 x10^3/uL (4.8-10.8)
[2024-07-19 05:18] LABS: MAGNESIUM 1.5 mg/dL (1.7-2.3)
[2024-07-19 05:21] LABS: CALCIUM 7.5 mg/dL (8.5-10.3); CREATININE 0.5 mg/dL (0.6-1.3); POTASSIUM 2.9 mmol/L (3.5-4.5)
--- NOTE | 2024-07-19 08:09 | PROVIDER PROGRESS NOTE ---
Subjective Prog Note Date Prog Note Date: 07/19/24 Subjective Pt reports feeling: Improved Subjective: Orientation still varies. She is no longer having hypotensive episodes overnight Current Medications Current Medications Current Medications: Current Medications Generic Name Dose Route Start Last Admin Trade Name Nevaeh PRN Reason Stop Dose Admin Acetaminophen 650 mg 07/17/24 14:00 07/19/24 06:16 Acetaminophen 325 Mg Tablet PO 07/20/24 13:59 Not Given TID ALFREDA Hydrocodone Bitart/Acetaminophen 15 ml 07/17/24 12:46 07/18/24 20:42 Hydrocodone/Acetam 7.5 Mg/325 Mg 15 Ml Udc PO 15 ml Q6HR PRN Administration Moderate Pain (Level 4-6) Calcium Carbonate/Glycine 500 mg 07/18/24 10:00 07/18/24 10:05 Calcium Carbonate Chew 500 Mg Tablet PO 500 mg 1000 ALFREDA Administration Cholecalciferol 50 mcg 07/17/24 12:00 07/18/24 09:04 Cholecalciferol 25 Mcg Tablet PO 50 mcg DAILY ALFREDA Administration Magnesium Sulfate 2 gm in 50 mls @ 50 mls/hr 07/19/24 07:18 Magnesium Sulfate IV 07/19/24 08:17 ONCE ONE Ketorolac Tromethamine 15 mg 07/17/24 15:22 07/19/24 04:48 Ketorolac 15 Mg/Ml Vial IVP 07/22/24 15:21 15 mg Q6HR PRN Administration Severe Pain (Level 7-10) Lorazepam 1 mg 07/15/24 19:33 Lorazepam 2 Mg/Ml Vial IVP Q30M PRN CIWA >8 Protocol Lorazepam 1 mg 07/15/24 19:33 Lorazepam 1 Mg Tablet PO Q1H PRN CIWA > 8 Protocol Magnesium Oxide 400 mg 07/19/24 08:00 Magnesium Oxide 400 Mg Tablet PO DAILYWM ALFREDA Melatonin 3 mg 07/16/24 21:00 07/18/24 22:00 Melatonin 3 Mg Tablet PO 3 mg QPM ALFREDA Administration Midodrine 10 mg 07/17/24 08:00 07/18/24 16:47 Midodrine 10 Mg Tablet PO 10 mg TIDWM ALFREDA Administration Mirtazapine 7.5 mg 07/16/24 21:00 07/18/24 22:01 Mirtazapine 15 Mg Tablet PO 7.5 mg QPM ALFREDA Administration Multi-Ingredient Mouthwash/Gargle 30 ml 07/17/24 12:46 Magic Mouthwash 120 Ml Bottle PO Q4H PRN Mouth Sore Pain Ondansetron HCl 4 mg 07/15/24 19:33 Ondansetron Odt 4 Mg Tablet TL Q6HR PRN Nausea / Vomiting Ondansetron HCl 4 mg 07/15/24 19:33 Ondansetron 4 Mg/2 Ml Vial IVP Q6HR PRN Nausea / Vomiting Potassium Chloride 40 meq 07/16/24 08:00 07/18/24 09:05 Potassium Chloride 20 Meq/15 Ml Udc PO 40 meq DAILYWM ALFREDA Administration Potassium Chloride 40 meq 07/19/24 08:00 Potassium Chloride 20 Meq Tablet PO 07/19/24 12:01 Q4H ALFREDA Multivit/Folic Acid/Iron 1 tab 07/17/24 15:00 07/18/24 10:05 Vitamin Tablet PO 1 tab DAILY@1000 ALFREDA Administration Sodium Chloride 10 ml 07/15/24 19:33 07/19/24 04:49 Sodium Chloride Flush 0.9% 10 Ml Syringe IVP 10 ml PRN PRN Administration NEEDED PER PROVIDER ORDERS Sodium Chloride 10 ml 07/16/24 01:00 07/19/24 00:41 Sodium Chloride Flush 0.9% 10 Ml Syringe IVP 10 ml 0100,0900,1700 ALFREDA Administration Sodium Chloride 2 gm 07/17/24 09:00 07/18/24 22:01 Sodium Chloride 1 Gm Tablet PO 2 gm BID ALFREDA Administration Sodium Phosphate 250 mg 07/16/24 08:00 07/18/24 16:47 Neutra-Phos 250 Mg Tablet PO 250 mg TIDWM ALFREDA Administration Thiamine HCl 400 mg 07/18/24 15:00 07/18/24 16:49 Thiamine 100 Mg Tablet PO 400 mg DAILY ALFREDA Administration Objective Vital Signs/Intake & Output Reviewed Vital Signs: Yes Vital Signs: Vital Signs x48h Temp Pulse Resp BP Pulse Ox 07/19/24 04:53 36.5 C 88 18 132/74 H 96 07/19/24 00:45 36.4 C L 90 18 97/62 96 Intake & Output: Intake & Output 07/16/24 07/17/24 07/18/24 07/19/24 23:59 23:59 23:59 23:59 Intake Total 7662 / 7662 4040 / 4040 2191 / 2191 480 / 480 Output Total 1235 / 1235 2325 / 2325 1425 / 1425 450 / 450 Balance 6427 / 6427 1715 / 1715 766 / 766 30 / 30 Objective General Appearance: positive No acute distress and Alert Eyes Bilateral: positive Other (Bruised on left side of face) ENT: positive ENT inspection nml Respiratory: positive Chest non-tender and No respiratory distress Cardiovascular: positive Regular rate & rhythm and No murmur Abdomen: positive Non-tender Skin: positive Other (Bruising on left arm, left side face) Extremities: positive Non-tender (Pain in left arm from broken humeral neck) Neurologic/Psychiatric: positive Other (Orientation comes and goes. Follows commands) Lab Results 07/19/24 04:45 07/19/24 04:45 Other Labs: Lab Results x24hrs 07/19/24 07/18/24 Range/Units 04:45 09:09 WBC 7.9 (4.8-10.8) x10^3/uL RBC 2.98 L (4.20-5.40) 10^6/uL Hgb 9.5 L (12.0-16.0) g/dL Hct 29.4 L (37.0-47.0) % MCV 98.7 (81.0-99.0) fL MCH 31.9 H (27.0-31.0) pg MCHC 32.3 (32.0-36.0) g/dL RDW 13.0 (12.0-15.0) % Plt Count 285 (130-450) 10^3/uL MPV 8.6 (7.9-10.8) fL Neut # (Auto) 5.0 (1.5-6.6) 10^3/uL Lymph # (Auto) 1.8 (1.5-3.5) 10^3/uL [place] # (Auto) 0.9 (0.0-1.0) 10^3/uL Eos # (Auto) 0.1 (0.0-0.7) 10^3/uL Baso # (Auto) 0.1 (0.0-0.1) 10^3/uL Absolute Nucleated RBC 0.00 x10^3/uL Nucleated RBC % 0.0 /100WBC Sodium 133 L 132 L (135-145) mmol/L Potassium 2.9 L (3.5-4.5) mmol/L Chloride 101 (101-111) mmol/L Carbon Dioxide 26 (21-32) mmol/L Anion Gap 6.0 (6-13) BUN 6 (6-20) mg/dL Creatinine 0.5 L (0.6-1.3) mg/dL Estimated GFR (MDRD) 125 (>89) Glucose 91 (74-104) mg/dL Calcium 7.5 L (8.5-10.3) mg/dL Phosphorus 3.0 (2.5-5.0) mg/dL Magnesium 1.5 L (1.7-2.3) mg/dL Procalcitonin Immunoas 11.92 H* (<0.5) ng/mL Random Cortisol 11.2 ug/dL Assessment/Plan Problem List (1) Alcohol withdrawal: Impression: I suspect that patient withdrew while she was at home, as she has not had any major withdrawal symptoms and spite of her excessive alcohol use Librium has been DC'd Ativan is still ordered as needed Multivitamin, thiamine Patient still has waxing and waning orientation, will increase dose of thiamine to 400 mg p.o. daily PT recommends SNF versus LTC Chest x-ray ordered overnight shows opacities in the right lower lobe. It would not be unreasonable to assume that this is an aspiration pneumonia, however patient has had no fevers and her white blood cell count has trended towards normal without antibiotics. Adding on a procalcitonin in the morning. Differentials include fluid overload from aggressive IV Fluids 07/19/2024: Procalcitonin positive, starting Ceftin 500 mg p.o. twice daily and azithromycin 500 mg p.o. daily. Total course 5 days for Ceftin, 3 days for Zithromax. Hyponatremia has resolved. She needs facility placement, and no facilities are excepting during the holiday. She is medically clear starting today. She had a potassium 2.9 and magnesium 1.5. I am replacing these Qualifiers: Complication of substance-induced condition: uncomplicated Qualified Code(s): F10.930 - Alcohol use, unspecified with withdrawal, uncomplicated (2) Hyponatremia: Impression: Sodium today 133 Daily BMP Continue salt pills (3) Rhabdomyolysis: Impression: Total CK is down to 212 Creatinine normal Discontinue IV fluids (4) Closed fracture of right condylar process of mandible: Impression: Soft diet Patient is not to blow her nose Follow-up with OMFS 1 week after discharge (5) Fracture of neck of left humerus: Impression: Keep left arm in sling, follow-up with Ortho outpatient
[2024-07-19] MEDS ORDERED: cefuroxime axetiL 250 MG TABLET PO SCH (09:00)
[2024-07-19] MEDS ORDERED: AZITHROMYCIN 250 MG TABLET PO SCH (09:00)
[2024-07-19] MEDS: [UNRECOGNIZED DRUG - OTHER] IV SCH (09:45)
[2024-07-19] MEDS: FOLIC ACID IV SCH (09:45)
[2024-07-19] MEDS: THIAMINE IV SCH (09:45)
[2024-07-19] MEDS: MULTIVITAMIN IV SCH (09:45)
[2024-07-19] MEDS: MAGNESIUM SULFATE IV SCH (09:45)
[2024-07-19] MEDS: cefTRIAXone 1 GM VIAL IVP SCH (09:53)
[2024-07-19] MEDS: AZITHROMYCIN INJ 500 MG in SODIUM CHLORIDE 0.9% 250 ML IV SCH (09:57)
[2024-07-19] MEDS: POTASSIUM CHLOR 10 MEQ/100 ML 10 MEQ/100 ML BAG IV SCH (13:05)
[2024-07-19] MEDS: MAGNESIUM SULFATE 2 GRAM 2 GM/50 ML BAG IV ONE (13:57)
[2024-07-19] MEDS: MAGNESIUM OXIDE 400 MG TABLET PO SCH (13:58)
[2024-07-19] MEDS: POTASSIUM CHLORIDE 20 MEQ TABLET PO SCH (13:59)
[2024-07-19] MEDS: POTASSIUM CHLORIDE 20 MEQ/15 ML UDC PO ONE (15:40)
[2024-07-19] MEDS: IPRATROPIUM/ALBUTEROL 3 ML NEB INH SCH (19:11)
[2024-07-20 05:34] LABS: BASOPHILS # (AUTO) 0.1 10^3/uL (0.0-0.1); BASOPHILS % (AUTO) 0.9 %; EOSINOPHILS # (AUTO) 0.2 10^3/uL (0.0-0.7); EOSINOPHILS % (AUTO) 2.3 %; HCT - HEMATOCRIT 27.5 % (37.0-47.0); HGB - HEMOGLOBIN 8.9 g/dL (12.0-16.0); LYMPHOCYTES # (AUTO) 1.7 10^3/uL (1.5-3.5); LYMPHOCYTES % (AUTO) 21.6 %; MEAN CORPUSCULAR HEMOGLOBIN 32.4 pg (27.0-31.0); MEAN CORPUSCULAR HGB CONC 32.4 g/dL (32.0-36.0); MEAN PLATELET VOLUME 8.6 fL (7.9-10.8); MONOCYTES % (AUTO) 13.2 %; NEUTROPHILS # (AUTO) 4.7 10^3/uL (1.5-6.6); NEUTROPHILS % (AUTO) 61.1 %; PLT - PLATELET COUNT 240 10^3/uL (130-450); RED BLOOD COUNT 2.75 10^6/uL (4.20-5.40); RED CELL DISTRIBUTION WIDTH 13.3 % (12.0-15.0); WHITE BLOOD COUNT 7.7 x10^3/uL (4.8-10.8)
[2024-07-20 05:47] LABS: CALCIUM 7.8 mg/dL (8.5-10.3); CREATININE 0.4 mg/dL (0.6-1.3); MAGNESIUM 1.8 mg/dL (1.7-2.3); POTASSIUM 4.5 mmol/L (3.5-4.5)
--- NOTE | 2024-07-20 08:55 | PROVIDER PROGRESS NOTE ---
Subjective Prog Note Date Prog Note Date: 07/20/24 Prog Note Time: 08:48 Subjective Pt reports feeling: No change Subjective: She accepts that she should not continue to drink alcohol. Today she says that does not sound so bad to her. she continues to grieve the loss of her deeply. She has not been able ot move on with her life. Initially wakes up and asks "where am I" then when I tell her the hospital, she says, oh, yes, [facility]. She demonstrates insight into her situation this morning,and is able to express her surprise at the situation she found herself in, and is starting to be able to look at the big picture of her life as it currently stands. This afternoon, when i return, she does not recall all of our conversation this AM. She is starting to dismiss that alcohol use could be highly contributory to her health situation Current Medications Current Medications Current Medications: Current Medications Generic Name Dose Route Start Last Admin Trade Name Freq PRN Reason Stop Dose Admin Acetaminophen 650 mg 07/17/24 14:00 07/20/24 05:35 Acetaminophen 325 Mg Tablet PO 07/20/24 13:59 650 mg TID ALFREDA Administration Hydrocodone Bitart/Acetaminophen 15 ml 07/17/24 12:46 07/20/24 04:36 Hydrocodone/Acetam 7.5 Mg/325 Mg 15 Ml Udc PO 15 ml Q6HR PRN Administration Moderate Pain (Level 4-6) Albuterol/Ipratropium 3 ml 07/19/24 19:00 07/20/24 07:12 Ipratropium/Albuterol 3 Ml Neb INH 3 ml RTQID ALFREDA Administration Albuterol/Ipratropium 3 ml 07/19/24 18:13 Ipratropium/Albuterol 3 Ml Neb INH Q4HR PRN Wheezing Calcium Carbonate/Glycine 500 mg 07/18/24 10:00 07/19/24 09:57 Calcium Carbonate Chew 500 Mg Tablet PO 500 mg 1000 ALFREDA Administration Ceftriaxone Sodium 1 gm 07/19/24 09:00 07/20/24 08:33 Ceftriaxone 1 Gm Vial IVP 1 gm DAILY ALFREDA Administration Cholecalciferol 50 mcg 07/17/24 12:00 07/19/24 09:27 Cholecalciferol 25 Mcg Tablet PO Not Given DAILY ALFREDA Azithromycin 500 mg/ Sodium 250 mls @ 250 mls/hr 07/19/24 09:00 07/20/24 08:38 Chloride IV 07/21/24 09:59 250 mls/hr DAILY ALFREDA Administration Ketorolac Tromethamine 15 mg 07/17/24 15:22 07/19/24 04:48 Ketorolac 15 Mg/Ml Vial IVP 07/22/24 15:21 15 mg Q6HR PRN Administration Severe Pain (Level 7-10) Lorazepam 1 mg 07/15/24 19:33 Lorazepam 2 Mg/Ml Vial IVP Q30M PRN CIWA >8 Protocol Lorazepam 1 mg 07/15/24 19:33 Lorazepam 1 Mg Tablet PO Q1H PRN CIWA > 8 Protocol Melatonin 3 mg 07/16/24 21:00 07/19/24 22:02 Melatonin 3 Mg Tablet PO 3 mg QPM ALFREDA Administration Midodrine 10 mg 07/17/24 08:00 07/20/24 08:40 Midodrine 10 Mg Tablet PO Not Given TIDWM ALFREDA Mirtazapine 7.5 mg 07/16/24 21:00 07/19/24 22:01 Mirtazapine 15 Mg Tablet PO 7.5 mg QPM ALFREDA Administration Multi-Ingredient Mouthwash/Gargle 30 ml 07/17/24 12:46 Magic Mouthwash 120 Ml Bottle PO Q4H PRN Mouth Sore Pain Ondansetron HCl 4 mg 07/15/24 19:33 Ondansetron Odt 4 Mg Tablet TL Q6HR PRN Nausea / Vomiting Ondansetron HCl 4 mg 07/15/24 19:33 Ondansetron 4 Mg/2 Ml Vial IVP Q6HR PRN Nausea / Vomiting Potassium Chloride 40 meq 07/16/24 08:00 07/20/24 08:30 Potassium Chloride 20 Meq/15 Ml Udc PO 40 meq DAILYWM ALFREDA Administration Multivit/Folic Acid/Iron 1 tab 07/17/24 15:00 07/19/24 09:57 Vitamin Tablet PO Not Given DAILY@1000 ALFREDA Sodium Chloride 10 ml 07/15/24 19:33 07/19/24 04:49 Sodium Chloride Flush 0.9% 10 Ml Syringe IVP 10 ml PRN PRN Administration NEEDED PER PROVIDER ORDERS Sodium Chloride 10 ml 07/16/24 01:00 07/20/24 08:38 Sodium Chloride Flush 0.9% 10 Ml Syringe IVP 10 ml 0100,0900,1700 ALFREDA Administration Sodium Chloride 2 gm 07/17/24 09:00 07/19/24 21:57 Sodium Chloride 1 Gm Tablet PO 2 gm BID ALFREDA Administration Thiamine HCl 400 mg 07/18/24 15:00 07/19/24 09:27 Thiamine 100 Mg Tablet PO Not Given DAILY ALFREDA Objective Vital Signs/Intake & Output Reviewed Vital Signs: Yes Vital Signs: Vital Signs x48h Temp Pulse Pulse Resp BP Pulse Ox 07/20/24 07:13 90 20 07/20/24 05:59 36.4 C L 96 20 110/62 96 Intake & Output: Intake & Output 07/17/24 07/18/24 07/19/24 07/20/24 23:59 23:59 23:59 23:59 Intake Total 4040 / 4040 2191 / 2191 2390 / 2390 240 / 240 Output Total 2325 / 2325 1425 / 1425 2150 / 2150 450 / 450 Balance 1715 / 1715 766 / 766 240 / 240 -210 / -210 Objective General Appearance: positive No acute distress and Alert Eyes Bilateral: positive Other (Bruised on left side of face) ENT: positive ENT inspection nml Respiratory: positive Chest non-tender and No respiratory distress Cardiovascular: positive Regular rate & rhythm and No murmur Abdomen: positive Non-tender Skin: positive Other (Bruising on left arm, left side face) Extremities: positive Non-tender (Pain in left arm from broken humeral neck) Neurologic/Psychiatric: positive Other (She is oriented x 3 today. ) Lab Results 07/20/24 05:23 07/20/24 05:23 Other Labs: Lab Results x24hrs 07/20/24 Range/Units 05:23 WBC 7.7 (4.8-10.8) x10^3/uL RBC 2.75 L (4.20-5.40) 10^6/uL Hgb 8.9 L (12.0-16.0) g/dL Hct 27.5 L (37.0-47.0) % MCV 100.0 H (81.0-99.0) fL MCH 32.4 H (27.0-31.0) pg MCHC 32.4 (32.0-36.0) g/dL RDW 13.3 (12.0-15.0) % Plt Count 240 (130-450) 10^3/uL MPV 8.6 (7.9-10.8) fL Neut # (Auto) 4.7 (1.5-6.6) 10^3/uL Lymph # (Auto) 1.7 (1.5-3.5) 10^3/uL [place] # (Auto) 1.0 (0.0-1.0) 10^3/uL Eos # (Auto) 0.2 (0.0-0.7) 10^3/uL Baso # (Auto) 0.1 (0.0-0.1) 10^3/uL Absolute Nucleated RBC 0.00 x10^3/uL Nucleated RBC % 0.0 /100WBC Sodium 132 L (135-145) mmol/L Potassium 4.5 (3.5-4.5) mmol/L Chloride 104 (101-111) mmol/L Carbon Dioxide 23 (21-32) mmol/L Anion Gap 5.0 L (6-13) BUN 6 (6-20) mg/dL Creatinine 0.4 L (0.6-1.3) mg/dL Estimated GFR (MDRD) 161 (>89) Glucose 98 (74-104) mg/dL Calcium 7.8 L (8.5-10.3) mg/dL Phosphorus 3.0 (2.5-5.0) mg/dL Magnesium 1.8 (1.7-2.3) mg/dL Assessment/Plan Problem List (1) Alcohol withdrawal: Impression: I suspect that patient withdrew while she was at home, as she has not had any major withdrawal symptoms in spite of her excessive alcohol use Librium has been DC'd Ativan is still ordered as needed Multivitamin, thiamine Orientation is improving. Patient is open to the idea of SNF for rehab, but wants to return to home. she misses her cat. She does think that maybe she should no longer live at home alone. She is open to the idea of never drinking alcohol again. Her thoughts about these things are very labile. PT recommends SNF versus LTC Chest x-ray ordered shows opacities in the right lower lobe. It would not be unreasonable to assume that this is an aspiration pneumonia, however patient has had no fevers and her white blood cell count has trended towards normal without antibiotics. Procalcitonon positive leading to decision to treat with abx. 07/19/2024: Procalcitonin positive, starting Ceftin 500 mg p.o. twice daily and azithromycin 500 mg p.o. daily. Total course 5 days for Ceftin, 3 days for Zithromax. Hyponatremia has resolved. She needs facility placement, and no facilities are excepting during the holiday. She is medically clear starting 07/19. She had a potassium 2.9 and magnesium 1.5. I am replacing these 07/20: medically clear. Working towards facility . Long discussion with her son this afternoon. I spent about 60 minutes outside the patient's room with him. She has indeed been drinking quite heavily. Her source of alcohol is [employer] deliveries. She is drinking the equivalent of approximately 7 bottles of wine per day. This is 1 box which has 36 glasses in it. She has been an alcoholic and/or addicted to other substances since the age of 15. This is per her son through other family members. She engages well in social conversation. 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 However, when attempting to corroborate these stories the facts quickly fall apart. 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 When verifying this story we find out that this person in this business indeed does not drug abuse resistance education officer health insurance but rather things like auto life and home insurance. Her son can give us multiple instances of such things. I am suspicious that although she can demonstrate some capacity for decision making with orientation x 3 and insight into her health situation, she may not have the competence to engage in decision making. There has been an APS case open in the past regarding her issues with alcohol use and concern for self-harm. This has since been closed. I believe this patient may meet the criteria for grave disability due to her alcoholism. I think that she may be an imminent danger to herself. The reason I believe this is the amount of excessive alcohol consumption and the situation in which she was found. She was found on the floor in her kitchen. She was in a puddle of vomit. Her freezer door was open where presumably she had fallen and reached for the door. The food was defrosted and spoiled. There are areas in her home where it is obvious she engages in this behavior not once but repeatedly. Her son, who lives in [facility] does check in with her almost constantly during her waking hours. He had lost touch with her for about 30 hours when he called the shipping specialist for a welfare check. There have been problems with obtaining cognitive evaluations in the past. Many times the patient will refuse cognitive evaluation. 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 It has been difficult to keep her in a facility where she is safe because eventually she finds a way to discharge herself from said facility. This patient certainly would benefit from more extensive cognitive evaluation to develop her competence to make decisions for herself. At this point given the circumstances of her hospitalization and multiple reports of inability to care for self, I believe that she is not competent to refuse placement in [facility] at this time. She would benefit from working repeatedly with [facility] and OT on cognitive evaluations to determine her ability to make decisions. Qualifiers: Complication of substance-induced condition: uncomplicated Qualified Code(s): F10.930 - Alcohol use, unspecified with withdrawal, uncomplicated (2) Aspiration pneumonia: Impression: No fevers, she is coughing some. Procalcitonin was 11.92, indicative of infection. She is day 2/3 azithromycin, day 2/5 rocephin. (3) Hyponatremia: Impression: Sodium today 132 Daily BMP Continue salt tabs (4) Rhabdomyolysis: Impression: resolved. Total CK is down to 212 Creatinine normal IVF have been discontinued. (5) Closed fracture of right condylar process of mandible: Impression: Soft diet Patient is not to blow her nose Follow-up with [facility]FS 1 week after discharge (6) Fracture of neck of left humerus: Impression: Moderately displaced left humeral neck fx. Keep left arm in sling, follow-up with Ortho outpatient (7) Hypokalemia: Impression: resolved today. She is getting oral KCl, I am going to decrease this to 20meq daily. I have ordered repeat BMP for the AM I have spent 90 minutes in the care of this patient today. This includes time [id number], review and ordering of diagnostic imaging and laboratory studies, and long discussion with family, as well as working with social work to determine safest disposition.
[2024-07-21] MEDS: POTASSIUM CHLORIDE 20 MEQ/15 ML UDC PO SCH (08:21)
--- NOTE | 2024-07-21 08:27 | PROVIDER PROGRESS NOTE ---
Subjective Prog Note Date Prog Note Date: 07/21/24 Prog Note Time: 08:26 Subjective Subjective: She is not feeling well today. No specific complaints. Current Medications Current Medications Current Medications: Current Medications Generic Name Dose Route Start Last Admin Trade Name Freq PRN Reason Stop Dose Admin Hydrocodone Bitart/Acetaminophen 15 ml 07/17/24 12:46 07/21/24 01:13 Hydrocodone/Acetam 7.5 Mg/325 Mg 15 Ml Udc PO 15 ml Q6HR PRN Administration Moderate Pain (Level 4-6) Albuterol/Ipratropium 3 ml 07/19/24 19:00 07/21/24 08:01 Ipratropium/Albuterol 3 Ml Neb INH Not Given RTQID ALFREDA Albuterol/Ipratropium 3 ml 07/19/24 18:13 Ipratropium/Albuterol 3 Ml Neb INH Q4HR PRN Wheezing Calcium Carbonate/Glycine 500 mg 07/18/24 10:00 07/20/24 10:35 Calcium Carbonate Chew 500 Mg Tablet PO 500 mg 1000 ALFREDA Administration Ceftriaxone Sodium 1 gm 07/19/24 09:00 07/21/24 08:24 Ceftriaxone 1 Gm Vial IVP 1 gm DAILY ALFREDA Administration Cholecalciferol 50 mcg 07/17/24 12:00 07/21/24 08:22 Cholecalciferol 25 Mcg Tablet PO 50 mcg DAILY ALFREDA Administration Azithromycin 500 mg/ Sodium 250 mls @ 250 mls/hr 07/19/24 09:00 07/21/24 08:23 Chloride IV 07/21/24 09:59 250 mls/hr DAILY ALFREDA Administration Ketorolac Tromethamine 15 mg 07/17/24 15:22 07/20/24 20:10 Ketorolac 15 Mg/Ml Vial IVP 07/22/24 15:21 15 mg Q6HR PRN Administration Severe Pain (Level 7-10) Lorazepam 1 mg 07/15/24 19:33 Lorazepam 2 Mg/Ml Vial IVP Q30M PRN CIWA >8 Protocol Lorazepam 1 mg 07/15/24 19:33 Lorazepam 1 Mg Tablet PO Q1H PRN CIWA > 8 Protocol Melatonin 3 mg 07/16/24 21:00 07/20/24 20:14 Melatonin 3 Mg Tablet PO 3 mg QPM ALFREDA Administration Midodrine 10 mg 07/17/24 08:00 07/21/24 08:23 Midodrine 10 Mg Tablet PO 10 mg TIDWM ALFREDA Administration Mirtazapine 7.5 mg 07/16/24 21:00 07/20/24 20:14 Mirtazapine 15 Mg Tablet PO 7.5 mg QPM ALFREDA Administration Multi-Ingredient Mouthwash/Gargle 30 ml 07/17/24 12:46 Magic Mouthwash 120 Ml Bottle PO Q4H PRN Mouth Sore Pain Ondansetron HCl 4 mg 07/15/24 19:33 Ondansetron Odt 4 Mg Tablet TL Q6HR PRN Nausea / Vomiting Ondansetron HCl 4 mg 07/15/24 19:33 Ondansetron 4 Mg/2 Ml Vial IVP Q6HR PRN Nausea / Vomiting Potassium Chloride 20 meq 07/21/24 08:00 07/21/24 08:21 Potassium Chloride 20 Meq/15 Ml Udc PO 20 meq DAILYWM ALFREDA Administration Multivit/Folic Acid/Iron 1 tab 07/17/24 15:00 07/20/24 10:35 Vitamin Tablet PO 1 tab DAILY@1000 ALFREDA Administration Sodium Chloride 10 ml 07/15/24 19:33 07/20/24 16:27 Sodium Chloride Flush 0.9% 10 Ml Syringe IVP 10 ml PRN PRN Administration NEEDED PER PROVIDER ORDERS Sodium Chloride 10 ml 07/16/24 01:00 07/21/24 08:23 Sodium Chloride Flush 0.9% 10 Ml Syringe IVP 10 ml 0100,0900,1700 ALFREDA Administration Sodium Chloride 2 gm 07/17/24 09:00 07/21/24 08:22 Sodium Chloride 1 Gm Tablet PO 2 gm BID ALFREDA Administration Thiamine HCl 400 mg 07/18/24 15:00 07/21/24 08:22 Thiamine 100 Mg Tablet PO 400 mg DAILY ALFREDA Administration Objective Vital Signs/Intake & Output Reviewed Vital Signs: Yes Vital Signs: Vital Signs x48h Temp Pulse Pulse Resp BP Pulse Ox 07/20/24 07:13 90 20 07/20/24 05:59 36.4 C L 96 20 110/62 96 Intake & Output: Intake & Output 07/18/24 07/19/24 07/20/24 07/21/24 23:59 23:59 23:59 23:59 Intake Total 2191 / 2191 2390 / 2390 730 / 730 175 / 175 Output Total 1425 / 1425 2150 / 2150 2215 / 2215 950 / 950 Balance 766 / 766 240 / 240 -1485 / -1485 -775 / -775 Objective General Appearance: positive No acute distress and Alert Eyes Bilateral: positive Other (Bruised on left side of face) ENT: positive ENT inspection nml Respiratory: positive Chest non-tender, No respiratory distress and Rhonchi (diffuse) Cardiovascular: positive Regular rate & rhythm and No murmur Abdomen: positive Non-tender Skin: positive Other (Bruising on left arm, left side face) Extremities: positive Non-tender (Pain in left arm from broken humeral neck) and No pedal edema Neurologic/Psychiatric: positive Other (She is oriented x 3 today. ) Lab Results 07/21/24 08:45 07/21/24 08:45 Other Labs: Lab Results x24hrs 07/20/24 Range/Units 05:23 WBC 7.7 (4.8-10.8) x10^3/uL RBC 2.75 L (4.20-5.40) 10^6/uL Hgb 8.9 L (12.0-16.0) g/dL Hct 27.5 L (37.0-47.0) % MCV 100.0 H (81.0-99.0) fL MCH 32.4 H (27.0-31.0) pg MCHC 32.4 (32.0-36.0) g/dL RDW 13.3 (12.0-15.0) % Plt Count 240 (130-450) 10^3/uL MPV 8.6 (7.9-10.8) fL Neut # (Auto) 4.7 (1.5-6.6) 10^3/uL Lymph # (Auto) 1.7 (1.5-3.5) 10^3/uL Quay # (Auto) 1.0 (0.0-1.0) 10^3/uL Eos # (Auto) 0.2 (0.0-0.7) 10^3/uL Baso # (Auto) 0.1 (0.0-0.1) 10^3/uL Absolute Nucleated RBC 0.00 x10^3/uL Nucleated RBC % 0.0 /100WBC Sodium 132 L (135-145) mmol/L Potassium 4.5 (3.5-4.5) mmol/L Chloride 104 (101-111) mmol/L Carbon Dioxide 23 (21-32) mmol/L Anion Gap 5.0 L (6-13) BUN 6 (6-20) mg/dL Creatinine 0.4 L (0.6-1.3) mg/dL Estimated GFR (MDRD) 161 (>89) Glucose 98 (74-104) mg/dL Calcium 7.8 L (8.5-10.3) mg/dL Phosphorus 3.0 (2.5-5.0) mg/dL Magnesium 1.8 (1.7-2.3) mg/dL Assessment/Plan Problem List (1) Alcohol withdrawal: Impression: I suspect that patient withdrew while she was at home, as she has not had any major withdrawal symptoms in spite of her excessive alcohol use Librium has been DC'd Ativan is still ordered as needed Multivitamin, thiamine Orientation is improving. Patient is open to the idea of SNF for rehab, but wants to return to home. she misses her cat. She does think that maybe she should no longer live at home alone. She is open to the idea of never drinking alcohol again. Her thoughts about these things are very labile. PT recommends SNF versus LTC Chest x-ray ordered shows opacities in the right lower lobe. It would not be unreasonable to assume that this is an aspiration pneumonia, however patient has had no fevers and her white blood cell count has trended towards normal without antibiotics. Procalcitonon positive leading to decision to treat with abx. 07/19/2024: Procalcitonin positive, starting Ceftin 500 mg p.o. twice daily and azithromycin 500 mg p.o. daily. Total course 5 days for Ceftin, 3 days for Zithromax. Hyponatremia has resolved. She needs facility placement, and no facilities are excepting during the holiday. She is medically clear starting 07/19. She had a potassium 2.9 and magnesium 1.5. I am replacing these 07/20: medically clear. Working towards facility . Long discussion with her son this afternoon. I spent about 60 minutes outside the patient's room with him. She has indeed been drinking quite heavily. Her source of alcohol is [employer] deliveries. She is drinking the equivalent of approximately 7 bottles of wine per day. This is 1 box which has 36 glasses in it. She has been an alcoholic and/or addicted to other substances since the age of 15. This is per her son through other family members. She engages well in social conversation. 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 However, when attempting to corroborate these stories the facts quickly fall apart. 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 When verifying this story we find out that this person in this business indeed does not broker in charge health insurance but rather things like auto life and home insurance. Her son can give us multiple instances of such things. I am suspicious that although she can demonstrate some capacity for decision making with orientation x 3 and insight into her health situation, she may not have the competence to engage in decision making. There has been an APS case open in the past regarding her issues with alcohol use and concern for self-harm. This has since been closed. I believe this patient may meet the criteria for grave disability due to her alcoholism. I think that she may be an imminent danger to herself. The reason I believe this is the amount of excessive alcohol consumption and the situation in which she was found. She was found on the floor in her kitchen. She was in a puddle of vomit. Her freezer door was open where presumably she had fallen and reached for the door. The food was defrosted and spoiled. There are areas in her home where it is obvious she engages in this behavior not once but repeatedly. Her son, who lives in [facility] does check in with her almost constantly during her waking hours. He had lost touch with her for about 30 hours when he called the [facility] for a welfare check. There have been problems with obtaining cognitive evaluations in the past. Many times the patient will refuse cognitive evaluation. 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 It has been difficult to keep her in a facility where she is safe because eventually she finds a way to discharge herself from said facility. This patient certainly would benefit from more extensive cognitive evaluation to develop her competence to make decisions for herself. At this point given the circumstances of her hospitalization and multiple reports of inability to care for self, I believe that she is not competent to refuse placement in retirement at this time. She would benefit from working repeatedly with [employer] and OT on cognitive evaluations to determine her ability to make decisions. 07/21: First avoidable day. We are awaiting insurance approval for SNF. Her vital signs have been stable. She has not required supplemental oxygen. Qualifiers: Complication of substance-induced condition: uncomplicated Qualified Code(s): F10.930 - Alcohol use, unspecified with withdrawal, uncomplicated (2) Aspiration pneumonia: Impression: No fevers, she is coughing some. Procalcitonin was 11.92, indicative of infection. She is day 3/3 azithromycin, day 3/5 rocephin. Qualifiers: Laterality: bilateral Lung location: unspecified part of lung A spiration pneumonia type: unspecified Qualified Code(s): J69.0 - Pneumonitis due to inhalation of food and vomit (3) Hyponatremia: Impression: Sodium today 131 Daily BMP Continue salt tabs (4) Rhabdomyolysis: Impression: resolved. Total CK is down to 212 Creatinine normal IVF have been discontinued. Qualifiers: Rhabdomyolysis type: non-traumatic Qualified Code(s): M62.82 - Rhabdomyolysis (5) Closed fracture of right condylar process of mandible: Impression: Soft diet Patient is not to blow her nose Follow-up with [facility] 1 week after discharge Qualifiers: Encounter type: initial encounter Qualified Code(s): S02.611A - Fracture of condylar process of right mandible, initial encounter for closed fracture (6) Fracture of neck of left humerus: Impression: Moderately displaced left humeral neck fx. Keep left arm in sling, follow-up with Ortho outpatient Qualifiers: Encounter type: initial encounter Fracture type: closed Qualified Code(s): S42.212A - Unspecified displaced fracture of surgical neck of left humerus, initial encounter for closed fracture (7) Hypokalemia: Impression: resolved. She is getting oral KCl, I am have decreased this to 20meq daily. I have ordered repeat BMP for the AM I have spent 26 minutes in the care of this patient today. This includes time [id number], review and ordering of diagnostic imaging and laboratory studies.
--- NOTE | 2024-07-21 08:53 | Discharge Summary ---
"Discharge Summary Admit Date: 07/15/24 Discharge Date: 07/24/24 Discharging Provider: Gela Combs PA-C Primary Care Provider: GERARD Tillman Code Status: Do Not Attempt Resuscitation Discharge Facility Name: [facility] DIAGNOSES Discharge Diagnoses with Status of Each Condition: Alcohol withdrawal, resolved Aspiration pneumonia, treated needs followup CXR to insure resolution Hyponatremia, chronic and treated Rhabdomyolysis, resolved Closed fracture of right condylar process of mandible, needs OMFS follow-up Fracture of neck of left humerus, needs immobilization and orthopedic follow-up Hypokalemia, resolved. HPI History of Present Illness: 64-year-old female past medical history of alcohol abuse, she has had admissions for alcohol withdrawal before and has been noted to have Alcoholic liver disease/cirrhosis. She presented to the ER after being found down on a wellness check. Her son lives in [facility], and had tried to contact her but she was not answering her phone. Medics found her on the floor of her kitchen with bruising to the left side of her face and pain in the left shoulder. Family reports she drinks 4-5 bottles of wine per day. She thinks her last drink was 1 to 2 days ago. She reports poor nutrition to me since the of her . She states that she has hardly had anything to eat for at least 2 days. Denies fever, chills, chest pain, shortness of breath, abdominal/urinary problems. She endorses pain in her face and in her Left shoulder In the ER, shoulder x-ray was performed which showed a moderately displaced fracture of the left humeral neck without shoulder dislocation. CT facial bones was performed which showed Several fractures involving the wall of the left maxillary sinus, associated layering blood within the left maxillary sinus and irregular fracture lines involving the left Zygomatic arch. She also had several electrolyte derangements, including sodium 121, potassium 3.4, chloride 76, creatinine 1.7, up from a baseline of 0.5. Her CK was 1446. She was given IV fluid by ER provider for this and for a blood pressure of 65/52 with the lowest. Hospitalist was contacted for admission for hyponatremia, hypokalemia, rhabdomyolysis, alcohol withdrawal CONSULTS | PROCEDURES Procedures: CT cervical spine: Negative for acute fracture, degenerative changes, incidentally seen: Thickening of the visualized esophagus . Head CT: No intracranial abnormality Maxillofacial CT: Left maxillary sinus fracture, left zygomatic arch fracture, moderately displaced comminuted fracture of the right mandibular condyle. Left shoulder x-ray: Moderately displaced fracture of the left humeral neck, no shoulder dislocation Chest x-ray: New right lower hemithorax consolidation, likely aspiration, increased moderate bilateral peribronchial thickening opacities mildly prominent yareli follow-up chest x-ray is recommended. HOSPITAL COURSE Hospital Course: (1) Alcohol withdrawal: I suspect that patient withdrew while she was at home, as she has not had any major withdrawal symptoms in spite of her excessive alcohol use Librium has been DC'd Ativan has been discontinued as well. Multivitamin, thiamine Orientation is improving. Patient is open to the idea of SNF for rehab, but wants to return to home. she misses her cat. She does think that maybe she should no longer live at home alone. She is open to the idea of never drinking alcohol again. Her thoughts about these things are very labile. As she continues to feel better day by day, she continues to think that maybe she wants to transition to home. I think this is not a safe idea. PT recommends SNF versus LTC Chest x-ray ordered shows opacities in the right lower lobe. It would not be unreasonable to assume that this is an aspiration pneumonia, however patient has had no fevers and her white blood cell count has trended towards normal without antibiotics. Procalcitonon positive leading to decision to treat with abx. 07/19/2024: Procalcitonin positive, starting Ceftin 500 mg p.o. twice daily and azithromycin 500 mg p.o. daily. Total course 5 days for Ceftin, 3 days for Zithromax. Hyponatremia has resolved. She needs facility placement, and no facilities are excepting during the holiday. She is medically clear starting 07/19. She had a potassium 2.9 and magnesium 1.5. I am replacing these 07/20: medically clear. Working towards facility Long discussion with her son this afternoon. I spent about 60 minutes outside the patient's room with him. She has indeed been drinking quite heavily. Her source of alcohol is [employer] deliveries. She is drinking the equivalent of approximately 7 bottles of wine per day. This is 1 box which has 36 glasses in it. She has been an alcoholic and/or addicted to other substances since the age of 15. This is per her son through other family members. She engages well in social conversation. 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 However, when attempting to corroborate these stories the facts quickly fall apart. 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 Her son can give us multiple instances of such things. I am suspicious that although she can demonstrate some capacity for decision making with orientation x 3 and insight into her health situation, she may not have the competence to engage in decision making. There has been an APS case open in the past regarding her issues with alcohol use and concern for self-harm. This has since been closed. I believe this patient may meet the criteria for grave disability due to her alcoholism. I think that she may be an imminent danger to herself. The reason I believe this is the amount of excessive alcohol consumption and the situation in which she was found. She was found on the floor in her kitchen. She was in a puddle of vomit. Her freezer door was open where presumably she had fallen and reached for the door. The food was defrosted and spoiled. There are areas in her home where it is obvious she engages in this behavior not once but repeatedly. Her son, who lives in [facility] does check in with her almost constantly during her waking hours. He had lost touch with her for about 30 hours when he called the [facility] for a welfare check. There have been problems with obtaining cognitive evaluations in the past. Many times the patient will refuse cognitive evaluation. 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 It has been difficult to keep her in a facility where she is safe because eventually she finds a way to discharge herself from said facility. This patient certainly would benefit from more extensive cognitive evaluation to develop her competence to make decisions for herself. At this point given the circumstances of her hospitalization and multiple reports of inability to care for self, I believe that she is not competent to refuse placement in residential at this time. She would benefit from working repeatedly with COMPANY MARK[employer] and OT on cognitive evaluations to determine her ability to make decisions. 07/21: First avoidable day. We are awaiting insurance approval for SNF. Her vital signs have been stable. She has not required supplemental oxygen. 07/22: second avoidable day. no changes. I had a discussion with her son this afternoon. He is flying back to [place] tomorrow and will not be back at the hospital. He will continue to act as her DPOA. He would like to have a guardian here in the [place] but will continue to be his mother's surrogate decision maker. I continue to agree that she is not decisional and have grave concerns about if she were to check herself out of the facility and go home and drink. It is likely she will repeat what happened leading to her admission and in that case could potentially lose her life in a very miserable way. 07/23:third avoidable day. Insurance auth has been obtained. SNF will not accept patient until tomorrow. She has remained stable. She is alert and oriented. Friends intermittently at bedside. Her suitcase is packed and at bedside to transfer to SNF. 07/14: nervous and anxious regarding this transition. she is committed to going to SNF rehab to improve her functional abilities. (2) Aspiration pneumonia: Impression: No fevers, she is coughing some. Procalcitonin was 11.92, indicative of infection. She has completed appropriate abx therapy (3) Hyponatremia: Impression: Sodium today 131 Na ranges from 121 to 133 this admission. in the week she has been above 130, with salt tabs Continue salt tabs (4) Rhabdomyolysis: Impression: resolved. No longer trending this Total CK is down to 212 Creatinine normal IVF have been discontinued. (5) Closed fracture of right condylar process of mandible: Impression: Soft diet Patient is not to blow her nose (due to left Maxillary sinus fracture). these precautions are complete Follow-up with OMFS 1 week after discharge (6) Fracture of neck of left humerus: Impression: Moderately displaced left humeral neck fx. Keep left arm in sling, follow-up with Ortho outpatient (7) Hypokalemia: Impression: resolved. I have discontinued oral potassium. ALLERGIES Allergies Allergy/AdvReac Type Severity Reaction Status Date / Time Penicillins Allergy Mild Rash Verified 07/15/24 15:05 morphine Allergy Hallucinati Verified 07/15/24 15:05 ons MEDICATIONS Ambulatory Orders Medication Instructions Recorded Confirmed mirtazapine 15 mg tablet 7.5 mg (1/2 x 15 mg) PO DAILY 12/17/23 07/16/24 depression #30 tabs calcium carbonate 500 mg (2.5 x 200 mg calcium (500 07/21/24 mg)) PO 1000 #60 tabs cholecalciferol (vitamin D3) 25 50 mcg (2 x 25 mcg (1,000 unit)) 07/21/24 mcg (1,000 unit) tablet PO DAILY #30 tabs hydrocodone 7.5 mg-acetaminophen 15 ml PO Q6HR PRN Moderate Pain 07/21/24 325 mg/15 mL oral solution (Level 4-6) #473 mL ipratropium 0.5 mg-albuterol 3 mg 3 ml inhalation Q4-6H PRN 07/21/24 (2.5 mg base)/3 mL nebulization shortness of breath or wheezing soln #180 mL midodrine 10 mg tablet 10 mg PO TIDWM #90 tabs 07/21/24 vit,calcium 27-ferrous 1 tab PO DAILY@1000 #30 tabs 07/21/24 fum 60 mg iron-folic acid 1 mg tablet (Trinatal Rx 1) sodium chloride 1,000 mg soluble 2,000 mg (2 x 1,000 mg) PO BID #60 07/21/24 tablet tabs thiamine mononitrate (vit B1) 100 400 mg (4 x 100 mg) PO DAILY #120 07/21/24 mg tablet tabs loperamide 2 mg capsule 2 mg PO QID PRN Diarrhea #60 caps 07/24/24 PHYSICAL EXAM AT DISCHARGE General Appearance: positive No acute distress and Alert Eyes Bilateral: positive Conjunctivae nml (left subconjunctival hemorrhage) and Other (left sided facial bruising) ENT: positive ENT inspection nml Neck: positive Nml inspection Respiratory: positive Chest non-tender, No respiratory distress, Rhonchi (bilateral.) and Other (93% on room air. ) Cardiovascular: positive Regular rate & rhythm Abdomen: positive Non-tender and No distention Skin: positive Color nml Extremities: positive Non-tender and No pedal edema Neurologic/Psychiatric: positive Oriented x3 and Other (anxious and grumpy today, normally very pleasant. ) LABS 07/21/24 08:45 07/21/24 08:45 FOLLOW UP Follow Up: OMFS, Dr Braden Rome, [place]. No ortho available here at [facility] while patient was admitted. may follow with ortho of choice, or ortho here at [facility]. PCP GERARD Tillman at [facility], or as assigned at [facility]. TIME SPENT Time Spent in Discharge (Minutes): 45 Discharge Plan Discharge Patient Disposition: [facility] DC/Xfer Condition: Stable Prescriptions: New calcium carbonate 200 mg calcium (500 mg) Tablet,Chewable 500 mg PO 1000 Qty: 60 0RF cholecalciferol (vitamin D3) 25 mcg (1,000 unit) Tablet 50 mcg PO DAILY Qty: 30 0RF hydrocodone-acetaminophen 7.5-325 mg/15 mL Solution 15 ml PO Q6HR PRN (Reason: Moderate Pain (Level 4-6)) Qty: 473 0RF ipratropium-albuterol 0.5 mg-3 mg(2.5 mg base)/3 mL Solution For Nebulization 3 ml inhalation Q4-6H PRN (Reason: shortness of breath or wheezing) Qty: 180 0RF midodrine 10 mg Tablet 10 mg PO TIDWM Qty: 90 0RF Trinatal Rx 1 60 mg iron-1 mg Tablet 1 tab PO DAILY@1000 Qty: 30 0RF sodium chloride 1,000 mg Tablet,Soluble 2,000 mg PO BID Qty: 60 0RF thiamine mononitrate (vit B1) 100 mg Tablet 400 mg PO DAILY Qty: 120 0RF loperamide 2 mg Capsule 2 mg PO QID PRN (Reason: Diarrhea) Qty: 60 0RF Continued mirtazapine 15 MG tablet 7.5 mg PO DAILY Qty: 30 0RF Activity Restrictions: NWB left shoulder Activity Restrictions/Additional Instructions: Left arm in a sling at all times, except for hygiene. for left maxillary sinus fracture, should not blow nose until 07/23. for right mandibular condyle fracture should be on soft diet. it was recommended that she followup with OMFS (Dr Braden Rome) in one week. Diet: Soft Health Concerns: You came into the hospital because you are found on your kitchen floor after no one was able to get in touch with you for about a day and a half. It is possible that you are at home going through alcohol withdrawal and either passed out and fell or somehow fell. Your fall caused several injuries, including a left maxillary sinus fracture, a right jaw fracture and a left humeral neck fracture. Additionally you had some problems with your electrolytes and other labs showed that you had been lying on the floor for several days. While you are in the hospital we treated your electrolyte abnormalities and your pain. You will need to have your left shoulder immobilized for at least 6 weeks. You will need follow-up regarding your facial fractures and your left shoulder fracture. Care Plan Goals: You are being discharged to residential rehab in order to get stronger. Our goal for you is for you to achieve your previous level of function such that you are able to live independently at home. The way that you will achieve this goal is by going to residential for rehab. It is unlikely you can maintain your strength or function if you continue to drink alcohol. Assessment: Goal is to independently perform all of your activities of daily living If you are able to return home you will likely need some caregiver assistance Medication management goals will be determined upon discharge from residential Follow-up care: Dr. Braden Rome for facial fractures Orthopedics at [facility] for left humeral fracture Primary care provider, GERARD Tillman for general care Plan of Treatment: Nonweightbearing to the left shoulder until released by orthopedics Support left upper extremity in a sling at all times Soft diet to allow for healing of your jaw fracture Medications as listed on residential discharge Daily monitoring of blood pressure and titration of midodrine under direction of residential facility provider Monitoring of serum sodium and adjustment of salt tablets per residential provider. Print Language: Prydeinig Patient Instructions: Addiction Alcohol Stand Alone Forms: SNF Discharge"
[2024-07-21 08:56] LABS: BASOPHILS # (AUTO) 0.1 10^3/uL (0.0-0.1); BASOPHILS % (AUTO) 0.6 %; EOSINOPHILS # (AUTO) 0.2 10^3/uL (0.0-0.7); EOSINOPHILS % (AUTO) 1.4 %; HCT - HEMATOCRIT 28.3 % (37.0-47.0); LYMPHOCYTES # (AUTO) 1.8 10^3/uL (1.5-3.5); LYMPHOCYTES % (AUTO) 15.4 %; MEAN CORPUSCULAR HGB CONC 31.8 g/dL (32.0-36.0); MEAN CORPUSCULAR VOLUME 100.7 fL (81.0-99.0); MONOCYTES # (AUTO) 1.4 10^3/uL (0.0-1.0); MONOCYTES % (AUTO) 12.2 %; NEUTROPHILS # (AUTO) 8.1 10^3/uL (1.5-6.6); NEUTROPHILS % (AUTO) 69.3 %; PLT - PLATELET COUNT 315 10^3/uL (130-450); RED BLOOD COUNT 2.81 10^6/uL (4.20-5.40); RED CELL DISTRIBUTION WIDTH 13.4 % (12.0-15.0); WHITE BLOOD COUNT 11.7 x10^3/uL (4.8-10.8)
[2024-07-21 09:04] LABS: CALCIUM 7.9 mg/dL (8.5-10.3); CREATININE 0.4 mg/dL (0.6-1.3); POTASSIUM 4.6 mmol/L (3.5-4.5)
[2024-07-21] MEDS: IPRATROPIUM/ALBUTEROL 3 ML NEB INH PRN (20:26)
--- NOTE | 2024-07-22 08:12 | PROVIDER PROGRESS NOTE ---
Subjective Prog Note Date Prog Note Date: 07/22/24 Prog Note Time: 08:11 Subjective Pt reports feeling: No change Subjective: She expresses strongly that she wants to go home. She understands that she is not able to care for herself. Current Medications Current Medications Current Medications: Current Medications Generic Name Dose Route Start Last Admin Trade Name Freq PRN Reason Stop Dose Admin Hydrocodone Bitart/Acetaminophen 15 ml 07/17/24 12:46 07/22/24 05:21 Hydrocodone/Acetam 7.5 Mg/325 Mg 15 Ml Udc PO 15 ml Q6HR PRN Administration Moderate Pain (Level 4-6) Albuterol/Ipratropium 3 ml 07/19/24 18:13 07/21/24 20:26 Ipratropium/Albuterol 3 Ml Neb INH 3 ml Q4HR PRN Administration Wheezing Calcium Carbonate/Glycine 500 mg 07/18/24 10:00 07/21/24 10:23 Calcium Carbonate Chew 500 Mg Tablet PO Not Given 1000 ALFREDA Ceftriaxone Sodium 1 gm 07/19/24 09:00 07/21/24 08:24 Ceftriaxone 1 Gm Vial IVP 07/23/24 09:01 1 gm DAILY ALFREDA Administration Cholecalciferol 50 mcg 07/17/24 12:00 07/21/24 08:22 Cholecalciferol 25 Mcg Tablet PO 50 mcg DAILY ALFREDA Administration Ketorolac Tromethamine 15 mg 07/17/24 15:22 07/22/24 02:24 Ketorolac 15 Mg/Ml Vial IVP 07/22/24 15:21 15 mg Q6HR PRN Administration Severe Pain (Level 7-10) Melatonin 3 mg 07/16/24 21:00 07/21/24 20:13 Melatonin 3 Mg Tablet PO Not Given QPM ALFREDA Midodrine 10 mg 07/17/24 08:00 07/21/24 16:53 Midodrine 10 Mg Tablet PO 10 mg TIDWM ALFREDA Administration Mirtazapine 7.5 mg 07/16/24 21:00 07/21/24 20:13 Mirtazapine 15 Mg Tablet PO Not Given QPM ALFREDA Multi-Ingredient Mouthwash/Gargle 30 ml 07/17/24 12:46 Magic Mouthwash 120 Ml Bottle PO Q4H PRN Mouth Sore Pain Ondansetron HCl 4 mg 07/15/24 19:33 Ondansetron Odt 4 Mg Tablet TL Q6HR PRN Nausea / Vomiting Ondansetron HCl 4 mg 07/15/24 19:33 Ondansetron 4 Mg/2 Ml Vial IVP Q6HR PRN Nausea / Vomiting Multivit/Folic Acid/Iron 1 tab 07/17/24 15:00 07/21/24 10:23 Vitamin Tablet PO Not Given DAILY@1000 [facility] Sodium Chloride 10 ml 07/15/24 19:33 07/20/24 16:27 Sodium Chloride Flush 0.9% 10 Ml Syringe IVP 10 ml PRN PRN Administration NEEDED PER PROVIDER ORDERS Sodium Chloride 10 ml 07/16/24 01:00 07/21/24 23:35 Sodium Chloride Flush 0.9% 10 Ml Syringe IVP 10 ml 0100,0900,1700 ALFREDA Administration Sodium Chloride 2 gm 07/17/24 09:00 07/21/24 20:13 Sodium Chloride 1 Gm Tablet PO Not Given BID [facility] Thiamine HCl 400 mg 07/18/24 15:00 07/21/24 08:22 Thiamine 100 Mg Tablet PO 400 mg DAILY ALFREDA Administration Objective Vital Signs/Intake & Output Reviewed Vital Signs: Yes Vital Signs: Vital Signs x48h Temp Pulse Resp BP Pulse Ox 07/22/24 07:42 36.3 C L 94 20 110/61 94 Intake & Output: Intake & Output 07/19/24 07/20/24 07/21/24 07/22/24 23:59 23:59 23:59 23:59 Intake Total 2390 / 2390 730 / 730 1295 / 1295 Output Total 2150 / 2150 2215 / 2215 2100 / 2100 300 / 300 Balance 240 / 240 -1485 / -1485 -805 / -805 -300 / -300 Objective General Appearance: positive No acute distress and Alert Eyes Bilateral: positive Other (Bruised on left side of face) ENT: positive ENT inspection nml Cardiovascular: positive Regular rate & rhythm and No murmur Abdomen: positive Non-tender Skin: positive Other (Bruising on left arm, left side face) Extremities: positive Non-tender (Pain in left arm from broken humeral neck) and No pedal edema Neurologic/Psychiatric: positive Other (She is oriented x 3 today. ) Lab Results 07/21/24 08:45 07/21/24 08:45 Other Labs: Lab Results x24hrs 07/21/24 Range/Units 08:45 WBC 11.7 H (4.8-10.8) x10^3/uL RBC 2.81 L (4.20-5.40) 10^6/uL Hgb 9.0 L (12.0-16.0) g/dL Hct 28.3 L (37.0-47.0) % MCV 100.7 H (81.0-99.0) fL MCH 32.0 H (27.0-31.0) pg MCHC 31.8 L (32.0-36.0) g/dL RDW 13.4 (12.0-15.0) % Plt Count 315 (130-450) 10^3/uL MPV 9.0 (7.9-10.8) fL Neut # (Auto) 8.1 H (1.5-6.6) 10^3/uL Lymph # (Auto) 1.8 (1.5-3.5) 10^3/uL [place] # (Auto) 1.4 H (0.0-1.0) 10^3/uL Eos # (Auto) 0.2 (0.0-0.7) 10^3/uL Baso # (Auto) 0.1 (0.0-0.1) 10^3/uL Absolute Nucleated RBC 0.00 x10^3/uL Nucleated RBC % 0.0 /100WBC Sodium 131 L (135-145) mmol/L Potassium 4.6 H (3.5-4.5) mmol/L Chloride 102 (101-111) mmol/L Carbon Dioxide 23 (21-32) mmol/L Anion Gap 6.0 (6-13) BUN 5 L (6-20) mg/dL Creatinine 0.4 L (0.6-1.3) mg/dL Estimated GFR (MDRD) 161 (>89) Glucose 95 (74-104) mg/dL Calcium 7.9 L (8.5-10.3) mg/dL Assessment/Plan Problem List (1) Alcohol withdrawal: Impression: I suspect that patient withdrew while she was at home, as she has not had any major withdrawal symptoms in spite of her excessive alcohol use Librium has been DC'd Ativan has been discontinued as well. Multivitamin, thiamine Orientation is improving. Patient is open to the idea of SNF for rehab, but wants to return to home. she misses her cat. She does think that maybe she should no longer live at home alone. She is open to the idea of never drinking alcohol again. Her thoughts about these things are very labile. As she continues to feel better day by day, she continues to think that maybe she wants to transition to home. I think this is not a safe idea. PT recommends SNF versus LTC Chest x-ray ordered shows opacities in the right lower lobe. It would not be unreasonable to assume that this is an aspiration pneumonia, however patient has had no fevers and her white blood cell count has trended towards normal without antibiotics. Procalcitonon positive leading to decision to treat with abx. 07/19/2024: Procalcitonin positive, starting Ceftin 500 mg p.o. twice daily and azithromycin 500 mg p.o. daily. Total course 5 days for Ceftin, 3 days for Zithromax. Hyponatremia has resolved. She needs facility placement, and no facilities are excepting during the holiday. She is medically clear starting 07/19. She had a potassium 2.9 and magnesium 1.5. I am replacing these 07/20: medically clear. Working towards facility . Long discussion with her son this afternoon. I spent about 60 minutes outside the patient's room with him. She has indeed been drinking quite heavily. Her source of alcohol is [employer] deliveries. She is drinking the equivalent of approximately 7 bottles of wine per day. This is 1 box which has 36 glasses in it. She has been an alcoholic and/or addicted to other substances since the age of 15. This is per her son through other family members. She engages well in social conversation. 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 However, when attempting to corroborate these stories the facts quickly fall apart. 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 Her son can give us multiple instances of such things. I am suspicious that although she can demonstrate some capacity for decision making with orientation x 3 and insight into her health situation, she may not have the competence to engage in decision making. There has been an APS case open in the past regarding her issues with alcohol use and concern for self-harm. This has since been closed. I believe this patient may meet the criteria for grave disability due to her alcoholism. I think that she may be an imminent danger to herself. The reason I believe this is the amount of excessive alcohol consumption and the situation in which she was found. She was found on the floor in her kitchen. She was in a puddle of vomit. Her freezer door was open where presumably she had fallen and reached for the door. The food was defrosted and spoiled. There are areas in her home where it is obvious she engages in this behavior not once but repeatedly. Her son, who lives in [facility] does check in with her almost constantly during her waking hours. He had lost touch with her for about 30 hours when he called the silver steward for a welfare check. There have been problems with obtaining cognitive evaluations in the past. Many times the patient will refuse cognitive evaluation. 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 It has been difficult to keep her in a facility where she is safe because eventually she finds a way to discharge herself from said facility. This patient certainly would benefit from more extensive cognitive evaluation to develop her competence to make decisions for herself. At this point given the circumstances of her hospitalization and multiple reports of inability to care for self, I believe that she is not competent to refuse placement in half-way at this time. She would benefit from working repeatedly with SAP DIRECTOR and OT on cognitive evaluations to determine her ability to make decisions. 07/21: First avoidable day. We are awaiting insurance approval for SNF. Her vital signs have been stable. She has not required supplemental oxygen. 07/22: second avoidable day. no changes. I had a discussion with her son this afternoon. He is flying back to [facility] tomorrow and will not be back at the hospital. He will continue to act as her DPOA. He would like to have a guardian here in the [place] but will continue to be his mother surrogate decision maker. I continue to agree that she is not decisional and have grave concerns about if she were to check herself out of the facility and go home and drink. It is likely she will repeat what happened leading to her admission and in that case could potentially lose her life in a very miserable way. Qualifiers: Complication of substance-induced condition: uncomplicated Qualified Code(s): F10.930 - Alcohol use, unspecified with withdrawal, uncomplicated (2) Aspiration pneumonia: Impression: No fevers, she is coughing some. Procalcitonin was 11.92, indicative of infection. She Has completed azithromycin, day 4/5 rocephin. Qualifiers: Aspiration pneumonia type: unspecified Laterality: bilateral Lung location: unspecified part of lung Qualified Code(s): J69.0 - Pneumonitis due to inhalation of food and vomit (3) Hyponatremia: Impression: Sodium today 131 Daily BMP Continue salt tabs (4) Rhabdomyolysis: Impression: resolved. No longer trending this Total CK is down to 212 Creatinine normal IVF have been discontinued. Qualifiers: Rhabdomyolysis type: non-traumatic Qualified Code(s): M62.82 - Rhabdomyolysis (5) Closed fracture of right condylar process of mandible: Impression: Soft diet Patient is not to blow her nose Follow-up with [facility] 1 week after discharge Qualifiers: Encounter type: initial encounter Qualified Code(s): S02.611A - Fracture of condylar process of right mandible, initial encounter for closed fracture (6) Fracture of neck of left humerus: Impression: Moderately displaced left humeral neck fx. Keep left arm in sling, follow-up with Ortho outpatient Qualifiers: Encounter type: initial encounter Fracture type: closed Qualified Code(s): S42.212A - Unspecified displaced fracture of surgical neck of left humerus, initial encounter for closed fracture (7) Hypokalemia: Impression: resolved. She is getting oral KCl, I am have decreased this to 20meq daily. I have ordered repeat BMP for the AM I have spent 25 minutes in the care of this patient today. This includes time [id number], review and ordering of diagnostic imaging and laboratory studies.
--- NOTE | 2024-07-22 21:40 | PROVIDER PROGRESS NOTE ---
Rn Labor Delivery Note Rn Labor Delivery Note Rn Labor Delivery Note: per rn "Patient has had multiple loose/liquid bowel movements. x5-6 in last 24 hours. check stool studies, including c diff
--- NOTE | 2024-07-23 09:13 | PROVIDER PROGRESS NOTE ---
Subjective Prog Note Date Prog Note Date: 07/23/24 Prog Note Time: 09:11 Subjective Pt reports feeling: No change Subjective: She is not as hungry this AM. IS able to tell me that son Jono is on his way back to [facility]. Current Medications Current Medications Current Medications: Current Medications Generic Name Dose Route Start Last Admin Trade Name Freq PRN Reason Stop Dose Admin Hydrocodone Bitart/Acetaminophen 15 ml 07/17/24 12:46 07/23/24 01:10 Hydrocodone/Acetam 7.5 Mg/325 Mg 15 Ml Udc PO 15 ml Q6HR PRN Administration Moderate Pain (Level 4-6) Albuterol/Ipratropium 3 ml 07/19/24 18:13 07/21/24 20:26 Ipratropium/Albuterol 3 Ml Neb INH 3 ml Q4HR PRN Administration Wheezing Calcium Carbonate/Glycine 500 mg 07/18/24 10:00 07/22/24 09:51 Calcium Carbonate Chew 500 Mg Tablet PO 500 mg 1000 ALFREDA Administration Cholecalciferol 50 mcg 07/17/24 12:00 07/23/24 08:50 Cholecalciferol 25 Mcg Tablet PO 50 mcg DAILY ALFREDA Administration Melatonin 3 mg 07/16/24 21:00 07/22/24 20:25 Melatonin 3 Mg Tablet PO 3 mg QPM ALFREDA Administration Midodrine 10 mg 07/17/24 08:00 07/23/24 08:49 Midodrine 10 Mg Tablet PO 10 mg TIDWM ALFREDA Administration Mirtazapine 7.5 mg 07/16/24 21:00 07/22/24 20:24 Mirtazapine 15 Mg Tablet PO 7.5 mg QPM ALFREDA Administration Multi-Ingredient Mouthwash/Gargle 30 ml 07/17/24 12:46 Magic Mouthwash 120 Ml Bottle PO Q4H PRN Mouth Sore Pain Ondansetron HCl 4 mg 07/15/24 19:33 Ondansetron Odt 4 Mg Tablet TL Q6HR PRN Nausea / Vomiting Ondansetron HCl 4 mg 07/15/24 19:33 Ondansetron 4 Mg/2 Ml Vial IVP Q6HR PRN Nausea / Vomiting Multivit/Folic Acid/Iron 1 tab 07/17/24 15:00 07/22/24 09:51 Vitamin Tablet PO 1 tab DAILY@1000 ALFREDA Administration Sodium Chloride 10 ml 07/15/24 19:33 07/20/24 16:27 Sodium Chloride Flush 0.9% 10 Ml Syringe IVP 10 ml PRN PRN Administration NEEDED PER PROVIDER ORDERS Sodium Chloride 10 ml 07/16/24 01:00 07/22/24 23:36 Sodium Chloride Flush 0.9% 10 Ml Syringe IVP 10 ml 0100,0900,1700 ALFREDA Administration Sodium Chloride 2 gm 07/17/24 09:00 07/23/24 08:50 Sodium Chloride 1 Gm Tablet PO 2 gm BID ALFREDA Administration Thiamine HCl 400 mg 07/18/24 15:00 07/23/24 08:50 Thiamine 100 Mg Tablet PO 400 mg DAILY ALFREDA Administration Objective Vital Signs/Intake & Output Reviewed Vital Signs: Yes Vital Signs: Vital Signs x48h Temp Pulse Resp BP Pulse Ox 07/23/24 07:39 36.7 C 100 18 117/73 92 Intake & Output: Intake & Output 07/20/24 07/21/24 07/22/24 07/23/24 23:59 23:59 23:59 23:59 Intake Total 730 / 730 1295 / 1295 1180 / 1180 340 / 340 Output Total 2215 / 2215 2100 / 2100 800 / 800 525 / 525 Balance -1485 / -1485 -805 / -805 380 / 380 -185 / -185 Objective General Appearance: positive No acute distress and Alert Eyes Bilateral: positive Other (Bruised on left side of face) ENT: positive ENT inspection nml Respiratory: positive No respiratory distress and Rhonchi Cardiovascular: positive Regular rate & rhythm and No murmur Abdomen: positive Non-tender Skin: positive Other (Bruising on left arm, left side face) Extremities: positive Non-tender (Pain in left arm from broken humeral neck) and No pedal edema Neurologic/Psychiatric: positive Other (She is oriented x 3 today. ) Lab Results 07/21/24 08:45 07/21/24 08:45 Other Labs: Lab Results x24hrs 07/21/24 Range/Units 08:45 WBC 11.7 H (4.8-10.8) x10^3/uL RBC 2.81 L (4.20-5.40) 10^6/uL Hgb 9.0 L (12.0-16.0) g/dL Hct 28.3 L (37.0-47.0) % MCV 100.7 H (81.0-99.0) fL MCH 32.0 H (27.0-31.0) pg MCHC 31.8 L (32.0-36.0) g/dL RDW 13.4 (12.0-15.0) % Plt Count 315 (130-450) 10^3/uL MPV 9.0 (7.9-10.8) fL Neut # (Auto) 8.1 H (1.5-6.6) 10^3/uL Lymph # (Auto) 1.8 (1.5-3.5) 10^3/uL [place] # (Auto) 1.4 H (0.0-1.0) 10^3/uL Eos # (Auto) 0.2 (0.0-0.7) 10^3/uL Baso # (Auto) 0.1 (0.0-0.1) 10^3/uL Absolute Nucleated RBC 0.00 x10^3/uL Nucleated RBC % 0.0 /100WBC Sodium 131 L (135-145) mmol/L Potassium 4.6 H (3.5-4.5) mmol/L Chloride 102 (101-111) mmol/L Carbon Dioxide 23 (21-32) mmol/L Anion Gap 6.0 (6-13) BUN 5 L (6-20) mg/dL Creatinine 0.4 L (0.6-1.3) mg/dL Estimated GFR (MDRD) 161 (>89) Glucose 95 (74-104) mg/dL Calcium 7.9 L (8.5-10.3) mg/dL Assessment/Plan Problem List (1) Alcohol withdrawal: Impression: I suspect that patient withdrew while she was at home, as she has not had any major withdrawal symptoms in spite of her excessive alcohol use Librium has been DC'd Ativan has been discontinued as well. Multivitamin, thiamine Orientation is improving. Patient is open to the idea of SNF for rehab, but wants to return to home. she misses her cat. She does think that maybe she should no longer live at home alone. She is open to the idea of never drinking alcohol again. Her thoughts about these things are very labile. As she continues to feel better day by day, she continues to think that maybe she wants to transition to home. I think this is not a safe idea. PT recommends SNF versus LTC Chest x-ray ordered shows opacities in the right lower lobe. It would not be unreasonable to assume that this is an aspiration pneumonia, however patient has had no fevers and her white blood cell count has trended towards normal without antibiotics. Procalcitonon positive leading to decision to treat with abx. 07/19/2024: Procalcitonin positive, starting Ceftin 500 mg p.o. twice daily and azithromycin 500 mg p.o. daily. Total course 5 days for Ceftin, 3 days for Zithromax. Hyponatremia has resolved. She needs facility placement, and no facilities are excepting during the holiday. She is medically clear starting 07/19. She had a potassium 2.9 and magnesium 1.5. I am replacing these 07/20: medically clear. Working towards facility . Long discussion with her son this afternoon. I spent about 60 minutes outside the patient's room with him. She has indeed been drinking quite heavily. Her source of alcohol is [employer] deliveries. She is drinking the equivalent of approximately 7 bottles of wine per day. This is 1 box which has 36 glasses in it. She has been an alcoholic and/or addicted to other substances since the age of 15. This is per her son through other family members. She engages well in social conversation. 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 However, when attempting to corroborate these stories the facts quickly fall apart. 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 When verifying this story we find out that this person in this business indeed does not ticket broker health insurance but rather things like auto life and home insurance. Her son can give us multiple instances of such things. I am suspicious that although she can demonstrate some capacity for decision making with orientation x 3 and insight into her health situation, she may not have the competence to engage in decision making. There has been an APS case open in the past regarding her issues with alcohol use and concern for self-harm. This has since been closed. I believe this patient may meet the criteria for grave disability due to her alcoholism. I think that she may be an imminent danger to herself. The reason I believe this is the amount of excessive alcohol consumption and the situation in which she was found. She was found on the floor in her kitchen. She was in a puddle of vomit. Her freezer door was open where presumably she had fallen and reached for the door. The food was defrosted and spoiled. There are areas in her home where it is obvious she engages in this behavior not once but repeatedly. Her son, who lives in [facility] does check in with her almost constantly during her waking hours. He had lost touch with her for about 30 hours when he called the hardwood floor sander for a welfare check. There have been problems with obtaining cognitive evaluations in the past. Many times the patient will refuse cognitive evaluation. 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 It has been difficult to keep her in a facility where she is safe because eventually she finds a way to discharge herself from said facility. This patient certainly would benefit from more extensive cognitive evaluation to develop her competence to make decisions for herself. At this point given the circumstances of her hospitalization and multiple reports of inability to care for self, I believe that she is not competent to refuse placement in [facility] at this time. She would benefit from working repeatedly with ED TRANSPORTER and OT on cognitive evaluations to determine her ability to make decisions. 07/21: First avoidable day. We are awaiting insurance approval for SNF. Her vital signs have been stable. She has not required supplemental oxygen. 07/22: second avoidable day. no changes. I had a discussion with her son this afternoon. He is flying back to [facility] tomorrow and will not be back at the hospital. He will continue to act as her DPOA. He would like to have a guardian here in the [place] but will continue to be his mother surrogate decision maker. I continue to agree that she is not decisional and have grave concerns about if she were to check herself out of the facility and go home and drink. It is likely she will repeat what happened leading to her admission and in that case could potentially lose her life in a very miserable way. 07/23:third avoidable day. Insurance auth has been obtained. SNF will not accept patient until tomorrow. She has remained stable. She is alert and oriented. Friends intermittently at bedside. Her suitcase is packed and at bedside to transfer to SNF. Qualifiers: Complication of substance-induced condition: uncomplicated Qualified Code(s): F10.930 - Alcohol use, unspecified with withdrawal, uncomplicated (2) Aspiration pneumonia: Impression: No fevers, she is coughing some. Procalcitonin was 11.92, indicative of infection. She Has completed azithromycin, day 5/5 rocephin. She has improved. We will finish course of antibiotics today and continue to observe her pulmonary symptoms. Qualifiers: Aspiration pneumonia type: unspecified Laterality: bilateral Lung location: unspecified part of lung Qualified Code(s): J69.0 - Pneumonitis due to inhalation of food and vomit (3) Hyponatremia: Impression: Sodium today 132 Daily BMP Continue salt tabs (4) Rhabdomyolysis: Impression: resolved. No longer trending this Total CK is down to 212 Creatinine normal IVF have been discontinued. Qualifiers: Rhabdomyolysis type: non-traumatic Qualified Code(s): M62.82 - Rhabdomyolysis (5) Closed fracture of right condylar process of mandible: Impression: Soft diet Patient is not to blow her nose Follow-up with [facility] 1 week after discharge Qualifiers: Encounter type: initial encounter Qualified Code(s): S02.611A - Fracture of condylar process of right mandible, initial encounter for closed fracture (6) Fracture of neck of left humerus: Impression: Moderately displaced left humeral neck fx. Keep left arm in sling, follow-up with Ortho outpatient Qualifiers: Encounter type: initial encounter Fracture type: closed Qualified Code(s): S42.212A - Unspecified displaced fracture of surgical neck of left humerus, initial encounter for closed fracture (7) Hypokalemia: Impression: resolved. I have discontinued oral potassium. Her potassium is 4.6 today. I have spent 25 minutes in the care of this patient today. This includes time [id number], review and ordering of diagnostic imaging and laboratory studies.
[2024-07-24] MEDS: LOPERAMIDE 2 MG CAPSULE PO PRN (08:03)
[2024-07-24 12:13] VITALS: BP 139/83; TEMP 98.1; O2SAT 92
[2024-07-24 18:07] LABS: ADENOVIRUS F 40/41 Not Detected (Not Detected); ASTROVIRUS Not Detected (Not Detected); C DIFFICILE TOXIN A/B Not Detected (Not Detected); CAMPYLOBACTER Not Detected (Not Detected); CRYPTOSPORIDIUM Not Detected (Not Detected); CYCLOSPORA CAYETANENSIS Not Detected (Not Detected); ENTAMOEBA HISTOLYTICA Not Detected (Not Detected); ENTEROAGGREGATIVE E COLI Not Detected (Not Detected); ENTEROPATHOGENIC E COLI Not Detected (Not Detected); ENTEROTOXIGENIC E COLI Not Detected (Not Detected); GIARDIA LAMBLIA Not Detected (Not Detected); NOROVIRUS GI/GII Not Detected (Not Detected); PLESIOMONAS SHIGELLOIDES Not Detected (Not Detected); ROTAVIRUS A Not Detected (Not Detected); SALMONELLA Not Detected (Not Detected); SAPOVIRUS Not Detected (Not Detected); SHIGA-TOXIN-PRODUCING E COLI Not Detected (Not Detected); SHIGELLA/ENTEROINVASIVE E COLI Not Detected (Not Detected); VIBRIO Not Detected (Not Detected); VIBRIO CHOLERAE Not Detected (Not Detected); YERSINIA ENTEROCOLITICA Not Detected (Not Detected)
== END 2024-07-24 13:00 | DRG 896 ==
LOC: ED 14:44 → MS2 14:44
PROVIDERS: ADMIT Nurse Practitioner Acute Care; ATTEND Nurse Practitioner Acute Care
DX: E87.1 Hypo-osmolality and hyponatremia; S02.40FA Zygomatic fracture, left side, initial encounter for closed fracture; M62.82 Rhabdomyolysis; Z60.2 Problems related to living alone; E86.0 Dehydration; F32.A Depression, unspecified; Y92.000 Kitchen of unspecified non-institutional (private) residence as the place of occurrence of the external cause; E87.6 Hypokalemia; S42.212A Unspecified displaced fracture of surgical neck of left humerus, initial encounter for closed fracture; F10.239 Alcohol dependence with withdrawal, unspecified; K70.30 Alcoholic cirrhosis of liver without ascites; S02.19XA Other fracture of base of skull, initial encounter for closed fracture; N17.9 Acute kidney failure, unspecified; I95.9 Hypotension, unspecified; S02.611A Fracture of condylar process of right mandible, initial encounter for closed fracture; Z66 Do not resuscitate; W19.XXXA Unspecified fall, initial encounter; J69.0 Pneumonitis due to inhalation of food and vomit

== ENCOUNTER 2024-10-27 17:36 | Inpatient (IN) ==
--- OUTSIDE RECORDS SUMMARY | 2024-10-27 18:04 | EXTERNAL MEDICAL SUMMARY RPT | Continuity of Care Document ---
Author Organization [facility] Address [address] [place] [id number] Phone Problems date description facility 2024-08-18 12:30 Hypo-osmolality and hyponatremi a [facility] 2024-08-18 12:30 Hypokalemia [facility] 2024-08-18 12:30 Alcohol dependence, uncomplicat ed [facility] 2024-08-18 12:30 Alcohol dependence with withdra wal, unspecified [facility] 2024-08-18 12:30 Alcohol use, unspeci fied with withdrawal, uncomplicated [facility] 2024-08-18 12:30 Hypotension, unspecified [facility] 2024-08-18 12:30 Pneumonitis due to inhalation o f food and vomit [facility] 2024-08-18 12:30 Rhabdomyolysis [facility] 2024-08-18 12:30 Acute kidney failure, unspecifi ed [facility] 2024-08-18 12:30 Fracture of condylar process of right mandible, initial encounter for closed fracture [facility] 2024-08-18 12:[address] d fracture of surgical neck of left humerus, initial encounter for closed fracture [facility] 2024-09-04 10:26 Hypo-osmolality and hyponatremi a [facility] 2024-09-04 10:26 Hypokalemia [facility] 2024-09-04 10:26 Alcohol dependence, uncomplicat ed [facility] 2024-09-04 10:26 Alcohol dependence with withdra wal, unspecified [facility] 2024-09-04 10:26 Alcohol use, unspeci fied with withdrawal, uncomplicated [facility] 2024-09-04 10:26 Hypotension, unspecified [employer] [facility] 2024-09-04 10:26 Pneumonitis due to inhalation o f food and vomit [facility] 2024-09-04 10:26 Rhabdomyolysis [facility] 2024-09-04 10:26 Acute kidney failure, unspecifi ed [facility] 2024-09-04 10:26 Fracture of condylar process of right mandible, initial encounter for closed fracture [facility] 2024-09-04 10:[address] d fracture of surgical neck of left humerus, initial encounter for closed fracture [facility] 2024-09-26 08:04 Pain in left shoulder [facility] 2024-09-27 10:38 Pain in left shoulder [facility] 2024-09-27 19:01 [facility]ermatitis, [facility] 2024-09-28 00:04 Dermatitis, unspecified [facility] 2024-10-04 10:12 Pain in left shoulder [facility] 2024-10-06 15:16 Dermatitis, unspecified [facility] 2024-10-21 11:13 Unspecified cirrhosis of liver [facility] 2024-10-21 11:13 [facility]ulitis, unspecified [facility] 2024-10-21 11:13 Localized edema [facility] 2024-10-21 11:13 Cachexia [facility] 2024-10-27 09:35 [facility] 2024-10-27 09:35 Cellulitis, [facility] 2024-10-27 09:35 [facility]ized [facility] 2024-10-27 09:35 [facility]xia [facility] 2024-10-27 09:36 Unspecified cirrhosis of liver [facility] 2024-10-27 09:36 Cellulitis, unspecified [facility] 2024-10-27 09:36 Localized edema [facility] 2024-10-27 09:36 [facility]xia [facility] 2024-10-27 17:49 Unspecified cirrhosis of liver [facility] 2024-10-27 17:49 Cellulitis, unspecified [facility] 2024-10-27 17:49 Localized [facility] 2024-10-27 17:49 [facility] Results/Labs test date facility value unit notes Result panel 1 AEROBIC CULTURE RESULT 1 2024-09-27 10:56 [facility] Comment (missing) Mixed bacterial conchita. Heavy growth Performed at: [facility] [address], [place], [place] [id number] Health Plan Specialist: Anibal Basurto MD, Phone: [phone] AEROBIC CULTURE 2024-09-27 10:56 [facility] Final report (missing) (missing) ANAEROBIC CULTURE 2024-09-27 10:56 [facility] Final report (missing) (missing) AEROBIC CULTURE RESULT 1 2024-09-27 10:56 [facility] Mixed skin conchita (missing) Heavy growth Performed at: [facility] [address], [place], [place] [id number] Health Plan Specialist: Anibal Basurto MD, Phone: [phone] AEROBIC CULTURE 2024-09-27 10:56 [facility] Preliminary report (missing) (missing) ANAEROBIC CULTURE RESULT 1 2024-09-27 10:56 [facility] Prevotella bivia (missing) Moderate growth Studies at [facility] have confirmed the observations of others who have demonstrated that Prevotella, Porphyromonas and Bacteroides species other than Bacteroides fragilis group are routinely susceptible to Cefoxitin, Chloramphenicol, and Metronidazole and are usually resistant to Penicillin. ANAEROBIC CULTURE RESULT 2 2024-09-27 10:56 [facility] Prevotella species (missing) Moderate growth Studies at [facility] have confirmed the observations of others who have demonstrated that Prevotella, Porphyromonas and Bacteroides species other than Bacteroides fragilis group are routinely susceptible to Cefoxitin, Chloramphenicol, and Metronidazole and are usually resistant to Penicillin. Result panel 2 NUCLEATED RED BLOOD CELLS AUTO 2024-10-27 09:45 [facility] 0.0 /100wbc (missing) NRBC ABSOLUTE COUNT (AUTO) 2024-10-27 09:45 [facility] 0.00 x10 3/ul (missing) BASOPHILS # (AUTO) 2024-10-27 09:45 [facility] 0.1 10 3/ul (missing) EOSINOPHILS # (AUTO) 2024-10-27 09:45 [facility] 0.1 10 3/ul (missing) BILIRUBIN,TOTAL 2024-10-27 09:45 [facility] 0.5 mg/dl As of January 2023 testing method has changed, this may include reference ranges. CREATININE 2024-10-27 09:45 [facility] 0.7 mg/dl As of January 2023 testing method has changed, this may include reference ranges. INR 2024-10-27 09:45 [facility] 1.0 (missing) Oral Anticoagulant Indication INR range Venous Thrombosis, P.E. 2.0 - 3.0 Mechanical Valve 2.5 - 3.5 THYROID STIMULATING HORMONE 2024-10-27 09:45 [facility] 1.29 uiu/ml (missing) MONOCYTES # (AUTO) 2024-10-27 09:45 [facility] 1.3 10 3/ul (missing) ALBUMIN/GLOBULIN RATIO 2024-10-27 09:45 [facility] 1.4 (missing) (missing) PT - PROTHROMBIN TIME 2024-10-27 09:45 [facility] 11.2 secs (missing) NEUTROPHILS # (AUTO) 2024-10-27 09:45 [facility] 12.8 10 3/ul (missing) SODIUM 2024-10-27 09:45 [facility] 120 mmol/l Critical result NA 120 mmol/L called to and read back by [facility] at 27-Oct-2024 12:47 by andrew. As of January 2023 testing method has changed, this may include reference ranges. ALKALINE PHOSPHATASE 2024-10-27 09:45 [facility] 129 iu/l As of January 2023 testing method has changed, this may include reference ranges. GLUCOSE 2024-10-27 09:45 [facility] 129 mg/dl As of January 2023 testing method has changed, this may include reference ranges. LIPASE 2024-10-27 09:45 [facility] 14 u/l As of January 2023 testing method has changed, this may include reference ranges. HGB - HEMOGLOBIN 2024-10-27 09:45 [facility] 14.6 g/dl (missing) ANION GAP 2024-10-27 09:45 [facility] 15.0 (missing) (missing) RED CELL DISTRIBUTION WIDTH 2024-10-27 09:45 [facility] 15.9 % (missing) WHITE BLOOD COUNT 2024-10-27 09:45 [facility] 16.7 x10 3/ul (missing) PREALBUMIN 2024-10-27 09:45 [facility] 17 mg/dl As of January 2023 testing method has changed, this may include reference ranges. LYMPHOCYTES # (AUTO) 2024-10-27 09:45 [facility] 2.2 10 3/ul (missing) GLOBULIN 2024-10-27 09:45 [facility] 2.8 g/dl (missing) ALT ALANINE AMINOTRANSFERASE 2024-10-27 09:45 [facility] 21 iu/l As of January 2023 testing method has changed, this may include reference ranges. AST ASPARTATE AMINOTRANSFERASE 2024-10-27 09:45 [facility] 25 iu/l As of January 2023 testing method has changed, this may include reference ranges. CARBON DIOXIDE - CO2 2024-10-27 09:45 [facility] 27 mmol/l As of January 2023 testing method has changed, this may include reference ranges. POTASSIUM 2024-10-27 09:45 [facility] 3.7 mmol/l As of January 2023 testing method has changed, this may include reference ranges. ALBUMIN 2024-10-27 09:45 [facility] 3.9 g/dl As of January 2023 testing method has changed, this may include reference ranges. MEAN CORPUSCULAR HEMOGLOBIN 2024-10-27 09:45 [facility] 35.0 pg (missing) MEAN CORPUSCULAR HGB CONC 2024-10-27 09:45 [facility] 35.5 g/dl (missing) PLT - PLATELET COUNT 2024-10-27 09:45 [facility] 395 10 3/ul (missing) RED BLOOD COUNT 2024-10-27 09:45 [facility] 4.17 10 6/ul (missing) HCT - HEMATOCRIT 2024-10-27 09:45 [facility] 41.1 % (missing) BUN - BLOOD UREA NITROGEN 2024-10-27 09:45 [facility] 5 mg/dl As of January 2023 testing method has changed, this may include reference ranges. TOTAL PROTEIN 2024-10-27 09:45 [facility] 6.7 g/dl As of January 2023 testing method has changed, this may include reference ranges. CHLORIDE 2024-10-27 09:45 [facility] 78 mmol/l Critical result CL 78 mmol/L called to and read back by [facility] at 27-Oct-2024 12:47 by [facility]. As of January 2023 testing method has changed, this may include reference ranges. GFR - MDRD 2024-10-27 09:45 [facility] 85 (missing) Social History date description facility
--- NOTE | 2024-10-27 19:48 | ED Physician Documentation ---
PD HPI ALTERED MENTAL STATUS Stated complaint Stated Complaint: ABNORMAL LABS Chief complaint Chief Complaint: General History obtained from History obtained from: Patient History of Present Illness Timing - onset: How many days ago (Patient has noted general weakness and lightheadedness with mild confusion or foggy thinking over the last few days, increasing. Went to her primary care and had blood test done that showed a sodium of 120. Referred to the ER.) Timing - duration: Days (The patient had had leg edema and swelling over the last 2 to 3 weeks. She was started on Lasix by her primary a week ago. She states her leg edema has significantly decreased but has general weakness.) Timing - details: Gradual onset and Still present Associated symptoms: General weakness; No Fever, Headache or Cough Contributing factors: New medication (diuretic a week ago for leg swelling.) Basline status: Alert and oriented X 3 and Walker Recently seen: Clinic Meds/Allgy Home Medications Ambulatory Orders Medication Instructions Recorded Confirmed mirtazapine 15 mg tablet 7.5 mg (1/2 x 15 mg) PO DAILY 12/17/23 07/16/24 depression #30 tabs calcium carbonate 500 mg (2.5 x 200 mg calcium (500 07/21/24 mg)) PO 1000 #60 tabs cholecalciferol (vitamin D3) 25 50 mcg (2 x 25 mcg (1,000 unit)) 07/21/24 mcg (1,000 unit) tablet PO DAILY #30 tabs hydrocodone 7.5 mg-acetaminophen 15 ml PO Q6HR PRN Moderate Pain 07/21/24 325 mg/15 mL oral solution (Level 4-6) #473 mL ipratropium 0.5 mg-albuterol 3 mg 3 ml inhalation Q4-6H PRN 07/21/24 (2.5 mg base)/3 mL nebulization shortness of breath or wheezing soln #180 mL midodrine 10 mg tablet 10 mg PO TIDWM #90 tabs 07/21/24 vit,calcium 27-ferrous 1 tab PO DAILY@1000 #30 tabs 07/21/24 fum 60 mg iron-folic acid 1 mg tablet (Trinatal Rx 1) sodium chloride 1,000 mg soluble 2,000 mg (2 x 1,000 mg) PO BID #60 07/21/24 tablet tabs thiamine mononitrate (vit B1) 100 400 mg (4 x 100 mg) PO DAILY #120 07/21/24 mg tablet tabs loperamide 2 mg capsule 2 mg PO QID PRN Diarrhea #60 caps 07/24/24 clotrimazole 1 % topical cream 1 applic topical BID 2 weeks #45 09/27/24 09/27/24 grams furosemide 20 mg tablet 20 mg PO QDAY #30 tabs 10/21/24 10/21/24 ondansetron 4 mg disintegrating 4 mg PO Q6H PRN nausea and 10/21/24 10/21/24 tablet vomiting #20 tabs sulfamethoxazole 800 1 tab PO BID 7 days #14 tabs 10/21/24 10/21/24 mg-trimethoprim 160 mg tablet Allergies Allergies Allergy/AdvReac Type Severity Reaction Status Date / Time Penicillins Allergy Mild Rash Verified 10/27/24 17:49 morphine Allergy Hallucinati Verified 10/27/24 17:49 ons PFSH Active Problems All Active Problems (Updated 10/28/24 @ 06:20 by Ankita Alfred, STEFANY) History of lung cancer (Acute) General weakness (Acute) Acute hyponatremia (Acute) Cellulitis (Acute) History of tobacco use (Acute) Postmenopausal (Acute) Fatigue (Acute) Low back pain, unspecified (Acute) Pain of left hip joint (Acute) Cirrhosis (Acute) Emphysema of lung (Acute) Depression with anxiety (Acute) Hyperlipidemia (Acute) Vitamin D deficiency (Acute) Dermatitis (Acute) Abnormal abdominal MRI (Acute) Left-sided chest wall pain (Acute) Tremor (Acute) Pain, joint, knee, right (Acute) Dysphagia (Acute) Hyperglycemia (Acute) Elevated blood pressure reading (Acute) Bilateral lower extremity edema (Acute) Peripheral neuropathy (Acute) Essential hypertension, benign (Acute) Diarrhea (Acute) Hypotension (Acute) Hypochloremia (Acute) Hematochezia (Acute) Elevated liver enzymes (Acute) Electrolyte abnormality (Acute) Impaired swallowing associated with throat pain (Acute) Shingles (Acute) Psychosocial problem (Acute) Mechanical deep vein thrombosis (DVT) prophylaxis in place (Acute) Do not resuscitate (Acute) Hyponatremia (Acute) Alcohol abuse (Acute) Hypokalemia (Acute) Cachexia (Acute) Medical History Medical History (Updated 10/28/24 @ 06:20 by Ankita Alfred, STEFANY) Adenocarcinoma, lung Aspiration pneumonia Closed fracture of left maxillary sinus Closed fracture of right condylar process of mandible Fracture of neck of left humerus Closed fracture of left olecranon process Fracture of radial head, right, closed Social History Social History Smoking Status: Former smoker If you are a former smoker, when did you quit? (Date/Year): 2022 Number of Years Smoked: 40 How many cigarettes a day do you smoke? (20 cigarettes=1 Pk): 30 Second hand tobacco smoke exposure: No Do you dip or chew tobacco?: No Do you vape?: No Patient requests smoking cessation consult: No Initiate information on smoking cessation: No Living arrangement: At home Marital Status: Living Condition: With family Support Person: No Relationship: How many days per week?: 1 Level: Independent Do you feel safe in your home environment?: Yes Suffered physical, verbal, emotional, or financial abuse?: No History of Abuse: No ETOH Use: Frequency: Daily Substance Use: denies use POLST Patient has POLST: No Exam Exam Vital Signs: Vital Signs x48h Temp Pulse Resp BP Pulse Ox 10/27/24 19:19 93 16 96/61 94 10/27/24 18:49 93 18 106/67 95 10/27/24 18:06 92 16 118/82 98 10/27/24 17:49 36.5 C 96 18 87/68 L 97 Constitutional normal general appearance, no apparent distress and average body habitus Neck/C-Spine supple Lymph no lymphadenopathy noted Respiratory breath sounds equal bilaterally and normal respiratory effort Cardiovascular normal heart rate noted, regular rhythm noted and no edema Gastrointestinal abdomen soft to palpation and nontender to palpation Extremities no tenderness and full ROM Neurology no focal motor deficit noted and no sensory deficits noted Psychiatry mental status grossly normal, oriented x3 and thought process normal Skin skin color normal Results Vitals Vitals: Vital Signs - 24 hr 10/27/24 17:49 10/27/24 18:06 10/27/24 18:49 Temperature 36.5 C Temperature Source Tympanic Pulse Rate 96 92 93 Respiratory Rate 18 16 18 Blood Pressure 87/68 L 118/82 106/67 O2 Saturation 97 98 95 O2 Source Room air Room air Room air Pain Intensity 4 4 10/27/24 19:19 10/27/24 20:00 Temperature Temperature Source Pulse Rate 93 94 Respiratory Rate 16 14 Blood Pressure 96/61 126/94 H O2 Saturation 94 96 O2 Source Room air Room air Pain Intensity 4 Oxygen O2 Source Room air Labs Labs: Laboratory Tests 10/27/24 10/27/24 17:00 20:17 WBC 15.4 H RBC 3.99 L Hgb 14.0 Hct 39.8 MCV 99.7 H MCH 35.1 H MCHC 35.2 RDW 15.8 H Plt Count 362 MPV 8.6 Neut # (Auto) 10.1 H Lymph # (Auto) 3.6 H [place] # (Auto) 1.5 H Eos # (Auto) 0.0 Baso # (Auto) 0.1 Absolute Nucleated RBC 0.00 Nucleated RBC % 0.0 Sodium 120 L* Potassium 3.4 L Chloride 79 L* Carbon Dioxide 29 Anion Gap 12.0 BUN 5 L Creatinine 0.6 Estimated GFR (MDRD) 101 Glucose 99 Calcium 8.9 Phosphorus 3.0 Magnesium 1.8 Total Bilirubin 0.4 AST 18 ALT 18 Alkaline Phosphatase 118 B-Natriuretic Peptide 60 Total Protein 6.3 L Albumin 3.6 Globulin 2.7 Albumin/Globulin Ratio 1.3 Lipase 13 Urine Color COLORLESS Urine Clarity CLEAR Urine pH 7.0 Ur Specific [place] <=1.005 Urine Protein NEGATIVE Urine Glucose (UA) NEGATIVE Urine Ketones NEGATIVE Urine Occult Blood NEGATIVE Urine Nitrite NEGATIVE Urine Bilirubin NEGATIVE Urine Urobilinogen 0.2 (NORMAL) Ur Leukocyte Esterase NEGATIVE Urine RBC 0-5 Urine WBC 0-3 Ur Squamous Epith Cells MOD Squamous H Urine Bacteria None Seen Urine Culture Comments NOT INDICATED PD Medical Decision Making ED course Complexity details: reviewed results (Sodium level 120 with the prior one on record 131. Her other electrolytes are good. Renal function is good as well.), re-evaluated patient (The patient was mentating well and in no distress. Therefore started this regular saline at 200 mL/h. I did not see an indication for hypertonic.), considered differential (Sodium level done outpatient was 120 earlier today and referred to the ER. She had been on a diuretic newly in the last week for leg edema. Unclear the cause of the leg edema as her renal function seems good and no history of CHF. She does not seem to be in heart failure.), d/w patient and d/w procurement consultant (I spoke with the hospitalist team for treatment in the hospital.) Discharge Plan Discharge Patient Disposition: [facility] DC/Xfer Condition: Stable Clinical Impression: Acute hyponatremia, General weakness Interventions: ED Admission Assessment Last Done: 10/27/24 21:45
[2024-10-27] MEDS: SODIUM CHLORIDE 0.9% 1,000 ML IV STA (20:23)
[2024-10-27 20:27] LABS: BASOPHILS # (AUTO) 0.1 10^3/uL (0.0-0.1); BASOPHILS % (AUTO) 0.6 %; EOSINOPHILS % (AUTO) 0.1 %; HCT - HEMATOCRIT 39.8 % (37.0-47.0); LYMPHOCYTES # (AUTO) 3.6 10^3/uL (1.5-3.5); LYMPHOCYTES % (AUTO) 23.2 %; MEAN CORPUSCULAR HEMOGLOBIN 35.1 pg (27.0-31.0); MEAN CORPUSCULAR HGB CONC 35.2 g/dL (32.0-36.0); MEAN CORPUSCULAR VOLUME 99.7 fL (81.0-99.0); MEAN PLATELET VOLUME 8.6 fL (7.9-10.8); MONOCYTES # (AUTO) 1.5 10^3/uL (0.0-1.0); MONOCYTES % (AUTO) 9.7 %; NEUTROPHILS # (AUTO) 10.1 10^3/uL (1.5-6.6); NEUTROPHILS % (AUTO) 65.7 %; PLT - PLATELET COUNT 362 10^3/uL (130-450); RED BLOOD COUNT 3.99 10^6/uL (4.20-5.40); RED CELL DISTRIBUTION WIDTH 15.8 % (12.0-15.0); WHITE BLOOD COUNT 15.4 x10^3/uL (4.8-10.8)
[2024-10-27 20:33] LABS: BILIRUBIN,URINE NEGATIVE (NEGATIVE); GLUCOSE, URINE (UA) NEGATIVE (NEGATIVE); KETONES,URINE (UA) NEGATIVE (NEGATIVE); LEUKOCYTE ESTERASE, URINE NEGATIVE (NEGATIVE); NITRITE,URINE NEGATIVE (NEGATIVE); OCCULT BLOOD,URINE NEGATIVE (NEGATIVE); PROTEIN,URINE NEGATIVE (NEGATIVE); UROBILINOGEN,URINE 0.2 (NORMAL) E.U./dL (NORMAL)
[2024-10-27 20:37] LABS: CLARITY,URINE CLEAR (CLEAR)
[2024-10-27 20:38] LABS: MAGNESIUM 1.8 mg/dL (1.7-2.3)
[2024-10-27 20:46] LABS: ALBUMIN 3.6 g/dL (3.2-5.5); ALBUMIN/GLOBULIN RATIO 1.3 (1.0-2.2); BILIRUBIN,TOTAL 0.4 mg/dL (0.2-1.0); CALCIUM 8.9 mg/dL (8.5-10.3); CREATININE 0.6 mg/dL (0.6-1.3); POTASSIUM 3.4 mmol/L (3.5-4.5); TOTAL PROTEIN 6.3 g/dL (6.4-8.9)
[2024-10-27 20:47] LABS: BACTERIA,URINE None Seen /HPF (None Seen); RBC,URINE 0-5 /HPF (0-5); SQUAMOUS EPITHELIAL CELL,UR MOD Squamous (<= Few); WBC,URINE 0-3 /HPF (0-5)
--- NOTE | 2024-10-27 21:16 | HISTORY & PHYSICAL EXAMINATION ---
Chief Complaint Chief Complaint Chief Complaint: Weakness and vomiting History of Present Illness Admitted From Admitted From:: Home History Obtained From Records Reviewed: Last admission June 2024 History obtained from: Patient History of Present Illness HPI Comment/Other: 64-year-old female known to me for alcohol use alcohol withdrawal and admission in June 2020 for after an acute event of being found down for a wellness check. She has been to the walk-in clinic twice over the course of the last month once for a dermatitis under her breasts and a second time for bilateral ankle swelling and pain less than a week ago. At that time she was seen by Dr. Johnson who sent labs and it turns out that she has hyponatremia. She was treated with furosemide and Bactrim for lower extremity swelling. Labs returned today showed a sodium of 120. She has been taking the Lasix 20 mg daily. She states she has not taken any Lasix or Bactrim today. For the last several weeks she states she has been vomiting on and off. She states it is not at all related to her alcohol ingestion she says it has no relationship at all to that. She states that her last drink was yesterday. She is very vague with me when I ask her how much she drinks and how often. Meds/Allgy Home Medications Ambulatory Orders Medication Instructions Recorded Confirmed mirtazapine 15 mg tablet 7.5 mg (1/2 x 15 mg) PO DAILY 12/17/23 07/16/24 depression #30 tabs calcium carbonate 500 mg (2.5 x 200 mg calcium (500 07/21/24 mg)) PO 1000 #60 tabs cholecalciferol (vitamin D3) 25 50 mcg (2 x 25 mcg (1,000 unit)) 07/21/24 mcg (1,000 unit) tablet PO DAILY #30 tabs hydrocodone 7.5 mg-acetaminophen 15 ml PO Q6HR PRN Moderate Pain 07/21/24 325 mg/15 mL oral solution (Level 4-6) #473 mL ipratropium 0.5 mg-albuterol 3 mg 3 ml inhalation Q4-6H PRN 07/21/24 (2.5 mg base)/3 mL nebulization shortness of breath or wheezing soln #180 mL midodrine 10 mg tablet 10 mg PO TIDWM #90 tabs 07/21/24 vit,calcium 27-ferrous 1 tab PO DAILY@1000 #30 tabs 07/21/24 fum 60 mg iron-folic acid 1 mg tablet (Trinatal Rx 1) sodium chloride 1,000 mg soluble 2,000 mg (2 x 1,000 mg) PO BID #60 07/21/24 tablet tabs thiamine mononitrate (vit B1) 100 400 mg (4 x 100 mg) PO DAILY #120 07/21/24 mg tablet tabs loperamide 2 mg capsule 2 mg PO QID PRN Diarrhea #60 caps 07/24/24 clotrimazole 1 % topical cream 1 applic topical BID 2 weeks #45 09/27/24 09/27/24 grams furosemide 20 mg tablet 20 mg PO QDAY #30 tabs 10/21/24 10/21/24 ondansetron 4 mg disintegrating 4 mg PO Q6H PRN nausea and 10/21/24 10/21/24 tablet vomiting #20 tabs sulfamethoxazole 800 1 tab PO BID 7 days #14 tabs 10/21/24 10/21/24 mg-trimethoprim 160 mg tablet Allergies Allergies Allergy/AdvReac Type Severity Reaction Status Date / Time Penicillins Allergy Mild Rash Verified 10/27/24 17:49 morphine Allergy Hallucinati Verified 10/27/24 17:49 ons PFSH Active Problems All Active Problems (Updated 10/27/24 @ 21:33 by DELVIN Bird) History of lung cancer (Acute) General weakness (Acute) Acute hyponatremia (Acute) Cellulitis (Acute) History of tobacco use (Acute) Postmenopausal (Acute) Fatigue (Acute) Low back pain, unspecified (Acute) Pain of left hip joint (Acute) Cirrhosis (Acute) Emphysema of lung (Acute) Depression with anxiety (Acute) Hyperlipidemia (Acute) Vitamin D deficiency (Acute) Dermatitis (Acute) Abnormal abdominal MRI (Acute) Left-sided chest wall pain (Acute) Tremor (Acute) Pain, joint, knee, right (Acute) Dysphagia (Acute) Hyperglycemia (Acute) Elevated blood pressure reading (Acute) Bilateral lower extremity edema (Acute) Peripheral neuropathy (Acute) Essential hypertension, benign (Acute) Diarrhea (Acute) Hypotension (Acute) Hypochloremia (Acute) Hematochezia (Acute) Elevated liver enzymes (Acute) Electrolyte abnormality (Acute) Impaired swallowing associated with throat pain (Acute) Shingles (Acute) Psychosocial problem (Acute) Mechanical deep vein thrombosis (DVT) prophylaxis in place (Acute) Do not resuscitate (Acute) Hyponatremia (Acute) Alcohol abuse (Acute) Hypokalemia (Acute) Cachexia (Acute) Medical History Medical History (Updated 10/27/24 @ 21:33 by DELVIN Bird) Adenocarcinoma, lung Aspiration pneumonia Closed fracture of left maxillary sinus Closed fracture of right condylar process of mandible Fracture of neck of left humerus Closed fracture of left olecranon process Fracture of radial head, right, closed Social History Social History Smoking Status: Former smoker If you are a former smoker, when did you quit? (Date/Year): 2022 Number of Years Smoked: 40 How many cigarettes a day do you smoke? (20 cigarettes=1 Pk): 30 Second hand tobacco smoke exposure: No Do you dip or chew tobacco?: No Do you vape?: No Patient requests smoking cessation consult: No Initiate information on smoking cessation: No Living arrangement: At home Marital Status: Living Condition: With family Support Person: No Relationship: How many days per week?: 1 Level: Independent Do you feel safe in your home environment?: Yes Suffered physical, verbal, emotional, or financial abuse?: No History of Abuse: No ETOH Use: Frequency: Daily Substance Use: denies use POLST Patient has POLST: Yes POLST Status: DNR Review of Systems Status of ROS: 10 or more systems reviewed and unremarkable except as noted in history and below Constitutional Reports: Fatigue and Poor appetite; Denies: Fever or Chills Eyes Denies: Vision loss Cardiovascular Reports: swelling of feet/ankles; Denies: Irregular heart rate, chest pain or shortness of breath with exertion Respiratory Denies: Shortness of breath or Cough Gastrointestinal Reports: Nausea, Vomiting and Poor appetite; Denies: Abdominal pain, Abdominal distention, Mundo blood emesis, Coffee grounds in vomit or Change in stool character Genitourinary Denies: Painful urination, Urinary frequency, Urinary urgency, Nocturia or Urinary incontinence Neurological Denies: Headache, General weakness or Memory problems Endocrine Reports: Fatigue Prior Level of Functionality: does not drive. lives alone. has not seen PCP in quite some time. Has December 11 appt currently Exam Exam Vital Signs: Vital Signs x48h Temp Pulse Pulse Resp BP BP Pulse Ox 10/27/24 22:00 36.3 C L 101 H 20 130/79 98 10/27/24 21:44 100 18 127/87 98 10/27/24 20:00 94 14 126/94 H 96 10/27/24 19:19 93 16 96/61 94 10/27/24 18:49 93 18 106/67 95 10/27/24 18:06 92 16 118/82 98 10/27/24 17:49 36.5 C 96 18 87/68 L 97 Constitutional normal general appearance and no apparent distress HENMT normocephalic, head/scalp atraumatic and hearing grossly normal bilaterally Eyes PERRL, conjunctivae normal and no scleral icterus Neck/C-Spine visual inspection normal and trachea midline Lymph no lymphadenopathy noted Chest inspection of chest normal Respiratory breath sounds equal bilaterally, normal respiratory effort and clear to auscultation bilaterally Cardiovascular normal heart rate noted Gastrointestinal abdomen normal to inspection, abdomen soft to palpation and normoactive bowel sounds Genitourinary no CVA tenderness Extremities left lower ext with mild edema at the mid calf and some warmth. slight edema on the right. Neurology event sales representative II-XII intact, no movement abnormality noted, speech normal, coordination normal and GCS 15 Psychiatry mental status grossly normal, oriented x3, thought process normal and cooperative Skin skin color normal no wounds at the lower extremities Conclusion/Plan Problem List (1) Acute hyponatremia: Plan: Known history of alcoholism, unclear how much she is drinking currently. Outpatient labs showed a sodium of 120. These were repeated upon presentation in the emergency department her sodium is indeed 120. She has been vomiting on and off for several weeks. She denies any blood in her vomit. I wonder though if this is why she is hyponatremic. I am unclear regarding why she is vomiting. I will repeat sodium in about 6 hours. I have placed the patient on 1500 mL of free water restriction. She may have other fluids at will. She has been given 1 L of IV fluids in the emergency department. I have ordered a regular diet. I will also start salt tabs. Discussed with Dr. Lara in the emergency department decision was made to admit this patient for hyponatremia. Goal will be not to correct her sodium more than 8 mill equivalents in 24 hours. I have ordered repeat sodium for 2 AM.I will also repeat BMP in the a.m. and will check magnesium and phosphorus levels at that time. (2) Cellulitis: Plan: Mild warmth and erythema of the left lower extremity with some edema. Her white blood cell count is 18.5. I am not sure sure if this is due to her vomiting or her cellulitis. I I have ordered Rocephin 1 g IV daily. I will continue to watch her white blood cell count and her erythema of the lower extremity. I have ordered repeat CBC for the a.m. Qualifiers: Laterality: unspecified laterality Site of cellulitis: extremity Site of cellulitis of extremity: lower extremity Qualified Code(s): L03.119 - Cellulitis of unspecified part of limb (3) Alcohol abuse: Plan: History of heavy drinking. History of alcohol withdrawal in the past. She is evasive regarding exactly how much she is drinking at this time. She does admit that her last drink was yesterday. She does not appear intoxicated nor does she appear tremulous in the emergency department today. I have ordered CIWA scoring and protocols. (4) History of lung cancer: Plan: last chest CT about one year ago, no evidence of recurrence. s/p right upper lobectomy Plan I have spent 78 minutes in the care of this patient today. This includes time [id number], review and ordering of diagnostic imaging and laboratory studies and consultation with other providers. Monitoring the patient's signs symptoms, evaluation of medication effectiveness and patient's response to treatment. Lab Results Lab results reviewed: Yes 10/27/24 20:17 10/27/24 20:17
--- NOTE | 2024-10-27 21:19 | XRAY Report ---
PROCEDURE: XR Chest 1V INDICATIONS: recent edema TECHNIQUE: One view of the chest was acquired. COMPARISON: None. FINDINGS: Surgical changes and devices: None. Lungs and pleura: No pleural effusions or pneumothorax. No consolidation. Mediastinum: Mediastinal contours appear normal. Heart size is normal. Mild prominence of central pulmonary arteries. No central venous congestion. Bones and chest wall: No suspicious bony lesions. Overlying soft tissues appear unremarkable. IMPRESSION: No radiographic evidence of acute CHF or significant central vascular congestion. Reviewed by: Diamante Arshad MD on 10/27/2024 9:18 PM PDT Approved by: Diamante Arshad MD on 10/27/2024 9:18 PM PDT Station ID: [id number]
--- OUTSIDE RECORDS SUMMARY | 2024-10-27 21:22 | EXTERNAL MEDICAL SUMMARY RPT | Continuity of Care Document ---
Author Organization [facility] Address [address] [place] [id number] Phone Problems date description facility 2024-08-18 12:30 Hypo-osmolality and hyponatremi a [facility] 2024-08-18 12:30 Hypokalemia [facility] 2024-08-18 12:30 Alcohol dependence, uncomplicat ed [facility] 2024-08-18 12:30 Alcohol dependence with withdra wal, unspecified [facility] 2024-08-18 12:30 Alcohol use, unspeci fied with withdrawal, uncomplicated [facility] 2024-08-18 12:30 Hypotension, unspecified [employer] 2024-08-18 12:30 Pneumonitis due to inhalation o f food and vomit [facility] 2024-08-18 12:30 Rhabdomyolysis [facility] 2024-08-18 12:30 Acute kidney failure, unspecifi ed [facility] 2024-08-18 12:30 Fracture of condylar process of right mandible, initial encounter for closed fracture [facility] 2024-08-18 12:[address] d fracture of surgical neck of left humerus, initial encounter for closed fracture [facility] 2024-09-04 10:26 Hypo-osmolality and hyponatremi a [facility] 2024-09-04 10:26 Hypokalemia [facility] 2024-09-04 10:26 Alcohol dependence, uncomplicat ed [facility] 2024-09-04 10:26 Alcohol dependence with withdra wal, unspecified [facility] 2024-09-04 10:26 Alcohol use, unspeci fied with withdrawal, uncomplicated [facility] 2024-09-04 10:26 Hypotension, unspecified [employer] 2024-09-04 10:26 Pneumonitis due to inhalation o f food and vomit [facility] 2024-09-04 10:26 Rhabdomyolysis [facility] 2024-09-04 10:26 Acute kidney failure, unspecifi ed [facility] 2024-09-04 10:26 Fracture of condylar process of right mandible, initial encounter for closed fracture [facility] 2024-09-04 10:[address] d fracture of surgical neck of left humerus, initial encounter for closed fracture [facility] 2024-09-26 08:04 Pain in left shoulder [facility] 2024-09-27 10:38 Pain in left shoulder [facility] 2024-09-27 19:01 [facility]ermatitis, [facility] 2024-09-28 00:04 [facility]ermatitis, [facility] 2024-10-04 10:12 Pain in left shoulder [facility] 2024-10-06 15:16 Dermatitis, [facility] 2024-10-21 11:13 Unspecified [facility] liver [facility] 2024-10-21 11:13 [facility], [facility] 2024-10-21 11:13 [facility] 2024-10-21 11:13 [facility]xia [facility] 2024-10-27 09:35 [facility] 2024-10-27 09:35 Cellulitis, unspecified [facility] 2024-10-27 09:35 Localized edema [facility] 2024-10-27 09:35 Cachexia [facility] 2024-10-27 09:36 Unspecified cirrhosis of liver [facility] 2024-10-27 09:36 Cellulitis, unspecified [facility] 2024-10-27 09:36 Localized edema [facility] 2024-10-27 09:36 Cachexia [facility] 2024-10-27 17:49 Unspecified cirrhosis of liver [facility] 2024-10-27 17:49 Cellulitis, unspecified [facility] 2024-10-27 17:49 Localized edema [facility] 2024-10-27 17:49 Cachexia [facility] Results/Labs test date facility value unit notes Result panel 1 AEROBIC CULTURE RESULT 1 2024-09-27 10:56 [facility] Comment (missing) Mixed bacterial conchita. Heavy growth Performed at: [place] [address], [place], [place] [id number] [employer]: Anibal Basurto MD, Phone: [phone] AEROBIC CULTURE 2024-09-27 10:56 [facility] Final report (missing) (missing) ANAEROBIC CULTURE 2024-09-27 10:56 [facility] Final report (missing) (missing) AEROBIC CULTURE RESULT 1 2024-09-27 10:56 [facility] Mixed skin conchita (missing) Heavy growth Performed at: [facility] [address], [place], [place] [id number] [employer]: Anibal Basurto MD, Phone: [phone] AEROBIC CULTURE 2024-09-27 10:56 [facility] Preliminary report (missing) (missing) ANAEROBIC CULTURE RESULT 1 2024-09-27 10:56 [facility] Prevotella bivia (missing) Moderate growth Studies at [facility] have confirmed the observations of others who have demonstrated that Prevotella, Porphyromonas and Bacteroides species other than Bacteroides fragilis group are routinely susceptible to Cefoxitin, Chloramphenicol, and Metronidazole and are usually resistant to Penicillin. ANAEROBIC CULTURE RESULT 2 2024-09-27 10:56 [facility] Prevotella species (missing) Moderate growth Studies at [facility] have confirmed the observations of others who have demonstrated that Prevotella, Porphyromonas and Bacteroides species other than Bacteroides fragilis group are routinely susceptible to Cefoxitin, Chloramphenicol, and Metronidazole and are usually resistant to Penicillin. Result panel 2 NUCLEATED RED BLOOD CELLS AUTO 2024-10-27 09:45 [facility] 0.0 /100wbc (missing) NRBC ABSOLUTE COUNT (AUTO) 2024-10-27 09:45 [facility] 0.00 x10 3/ul (missing) BASOPHILS # (AUTO) 2024-10-27 09:45 [facility] 0.1 10 3/ul (missing) EOSINOPHILS # (AUTO) 2024-10-27 09:45 [facility] 0.1 10 3/ul (missing) BILIRUBIN,TOTAL 2024-10-27 09:45 [facility] 0.5 mg/dl As of January 2023 testing method has changed, this may include reference ranges. CREATININE 2024-10-27 09:45 [facility] 0.7 mg/dl As of January 2023 testing method has changed, this may include reference ranges. INR 2024-10-27 09:45 [facility] 1.0 (missing) Oral Anticoagulant Indication INR range Venous Thrombosis, P.E. 2.0 - 3.0 Mechanical Valve 2.5 - 3.5 THYROID STIMULATING HORMONE 2024-10-27 09:45 [facility] 1.29 uiu/ml (missing) MONOCYTES # (AUTO) 2024-10-27 09:45 [facility] 1.3 10 3/ul (missing) ALBUMIN/GLOBULIN RATIO 2024-10-27 09:45 [facility] 1.4 (missing) (missing) PT - PROTHROMBIN TIME 2024-10-27 09:45 [facility] 11.2 secs (missing) NEUTROPHILS # (AUTO) 2024-10-27 09:45 [facility] 12.8 10 3/ul (missing) SODIUM 2024-10-27 09:45 [facility] 120 mmol/l Critical result NA 120 mmol/L called to and read back by AYAKA [facility]CG[facility] at 27-Oct-2024 12:47 by andrew. As of January 2023 testing method has changed, this may include reference ranges. ALKALINE PHOSPHATASE 2024-10-27 09:45 [facility] 129 iu/l As of January 2023 testing method has changed, this may include reference ranges. GLUCOSE 2024-10-27 09:45 [facility] 129 mg/dl As of January 2023 testing method has changed, this may include reference ranges. LIPASE 2024-10-27 09:45 [facility] 14 u/l As of January 2023 testing method has changed, this may include reference ranges. HGB - HEMOGLOBIN 2024-10-27 09:45 [facility] 14.6 g/dl (missing) ANION GAP 2024-10-27 09:45 [facility] 15.0 (missing) (missing) RED CELL DISTRIBUTION WIDTH 2024-10-27 09:45 [facility] 15.9 % (missing) WHITE BLOOD COUNT 2024-10-27 09:45 [facility] 16.7 x10 3/ul (missing) PREALBUMIN 2024-10-27 09:45 [facility] 17 mg/dl As of January 2023 testing method has changed, this may include reference ranges. LYMPHOCYTES # (AUTO) 2024-10-27 09:45 [facility] 2.2 10 3/ul (missing) GLOBULIN 2024-10-27 09:45 [facility] 2.8 g/dl (missing) ALT ALANINE AMINOTRANSFERASE 2024-10-27 09:45 [facility] 21 iu/l As of January 2023 testing method has changed, this may include reference ranges. AST ASPARTATE AMINOTRANSFERASE 2024-10-27 09:45 [facility] 25 iu/l As of January 2023 testing method has changed, this may include reference ranges. CARBON DIOXIDE - CO2 2024-10-27 09:45 [facility] 27 mmol/l As of January 2023 testing method has changed, this may include reference ranges. POTASSIUM 2024-10-27 09:45 [facility] 3.7 mmol/l As of January 2023 testing method has changed, this may include reference ranges. ALBUMIN 2024-10-27 09:45 [facility] 3.9 g/dl As of January 2023 testing method has changed, this may include reference ranges. MEAN CORPUSCULAR HEMOGLOBIN 2024-10-27 09:45 [facility] 35.0 pg (missing) MEAN CORPUSCULAR HGB CONC 2024-10-27 09:45 [facility] 35.5 g/dl (missing) PLT - PLATELET COUNT 2024-10-27 09:45 [facility] 395 10 3/ul (missing) RED BLOOD COUNT 2024-10-27 09:45 [facility] 4.17 10 6/ul (missing) HCT - HEMATOCRIT 2024-10-27 09:45 [facility] 41.1 % (missing) BUN - BLOOD UREA NITROGEN 2024-10-27 09:45 [facility] 5 mg/dl As of January 2023 testing method has changed, this may include reference ranges. TOTAL PROTEIN 2024-10-27 09:45 [facility] 6.7 g/dl As of January 2023 testing method has changed, this may include reference ranges. CHLORIDE 2024-10-27 09:45 [facility] 78 mmol/l Critical result CL 78 mmol/L called to and read back by AYAK[facility] at 27-Oct-2024 12:47 by [facility]. As of January 2023 testing method has changed, this may include reference ranges. GFR - MDRD 2024-10-27 09:45 [facility] 85 (missing) Social History date description facility
[2024-10-27] MEDS ORDERED: LORazepam 2 MG/ML VIAL IVP PRN (21:52)
[2024-10-27] MEDS ORDERED: ACETAMINOPHEN 325 MG TABLET PO PRN (21:52)
[2024-10-27] MEDS ORDERED: SODIUM CHLORIDE FLUSH 0.9% 10 ML SYRINGE IVP PRN (21:52)
[2024-10-27] MEDS: FAMOTIDINE 20 MG/2 ML VIAL IVP SCH (22:32)
[2024-10-27] MEDS: cefTRIAXone 1 GM VIAL IVP SCH (22:35)
[2024-10-27] MEDS: oxyCODONE 5 MG TABLET PO PRN (22:40)
[2024-10-27] MEDS: SODIUM CHLORIDE FLUSH 0.9% 10 ML SYRINGE IVP SCH (22:41)
[2024-10-27] MEDS: traZODone 50 MG TABLET PO SCH (22:53)
[2024-10-28] MEDS: PROCHLORPERAZINE 10 MG/2 ML VIAL IVP PRN (02:06)
--- NOTE | 2024-10-28 03:43 | PROVIDER PROGRESS NOTE ---
Tank Furnace Operator Note Tank Furnace Operator Note Tank Furnace Operator Note: patient with h/o ETOH abuse, hyponatremia, N&V. sodium 122 after 1L normal saline. per nurse continues to have nausea and vomiting, not keeping down salt tablets. CIWA score 4, no ativan has been given at this time. BP low. Will give another bolus of normal saline due to continue GI losses and hypotension. continue to trend sodium levels. monitor for withdrawal symptoms.
[2024-10-28] MEDS: SODIUM CHLORIDE 0.9% 1,000 ML IV SCH ×2 (04:00→08:51)
[2024-10-28] MEDS: cefTRIAXone 1 GM VIAL IVP SCH (04:09)
[2024-10-28 06:07] LABS: BASOPHILS % (AUTO) 0.5 %; EOSINOPHILS % (AUTO) 0.3 %; HCT - HEMATOCRIT 31.8 % (37.0-47.0); LYMPHOCYTES # (AUTO) 1.5 10^3/uL (1.5-3.5); LYMPHOCYTES % (AUTO) 16.6 %; MEAN CORPUSCULAR HGB CONC 34.6 g/dL (32.0-36.0); MEAN CORPUSCULAR VOLUME 101.3 fL (81.0-99.0); MEAN PLATELET VOLUME 8.6 fL (7.9-10.8); MONOCYTES # (AUTO) 0.8 10^3/uL (0.0-1.0); MONOCYTES % (AUTO) 8.6 %; NEUTROPHILS # (AUTO) 6.4 10^3/uL (1.5-6.6); NEUTROPHILS % (AUTO) 73.2 %; PLT - PLATELET COUNT 252 10^3/uL (130-450); RED BLOOD COUNT 3.14 10^6/uL (4.20-5.40); RED CELL DISTRIBUTION WIDTH 15.9 % (12.0-15.0); WHITE BLOOD COUNT 8.7 x10^3/uL (4.8-10.8)
[2024-10-28 06:20] LABS: CALCIUM 7.6 mg/dL (8.5-10.3); CREATININE 0.6 mg/dL (0.6-1.3); MAGNESIUM 1.7 mg/dL (1.7-2.3); PHOSPHORUS 2.8 mg/dL (2.5-5.0); POTASSIUM 3.3 mmol/L (3.5-4.5)
[2024-10-28] MEDS: ENOXAPARIN 40 MG/0.4 ML SYRINGE SUBQ SCH (08:51)
[2024-10-28] MEDS: ONDANSETRON 4 MG/2 ML VIAL IVP PRN (08:51)
[2024-10-28] MEDS: SODIUM CHLORIDE 1 GM TABLET PO SCH ×2 (08:52→20:56)
[2024-10-28] MEDS: PRENATAL VITAMIN TABLET PO SCH (08:52)
[2024-10-28] MEDS: POTASSIUM CHLORIDE 20 MEQ TABLET PO SCH (12:37)
[2024-10-28] MEDS: CALCIUM CARBONATE CHEW 500 MG TABLET PO PRN (12:37)
--- NOTE | 2024-10-28 13:29 | PROVIDER PROGRESS NOTE ---
Subjective Prog Note Date Prog Note Date: 10/28/24 Subjective Subjective: She is doing fine. She is pretty sure that she started vomiting after she started the doxycycline which was prescribed for lower extremity cellulitis. She is having some symptoms of dyspepsia and dysphagia, and she states that she really has not eaten much over the last week. She states about 2 years since her last surveillance scan for lung cancer. Current Medications Current Medications Current Medications: Current Medications Generic Name Dose Route Start Last Admin Trade Name Freq PRN Reason Stop Dose Admin Acetaminophen 650 mg 10/27/24 21:52 Acetaminophen 325 Mg Tablet PO Q4HR PRN Pain 1 to 4, or Fever Calcium Carbonate/Glycine 500 mg 10/28/24 11:29 10/28/24 12:37 Calcium Carbonate Chew 500 Mg Tablet PO 500 mg Q4H PRN Administration dyspepsia Ceftriaxone Sodium 1 gm 10/27/24 23:00 10/27/24 22:35 Ceftriaxone 1 Gm Vial IVP 1 gm Q24H ALFREDA Administration Enoxaparin Sodium 40 mg 10/28/24 09:00 10/28/24 08:51 Enoxaparin 40 Mg/0.4 Ml Syringe SUBQ 40 mg DAILY ALFREDA Administration Famotidine 20 mg 10/27/24 22:00 10/28/24 08:51 Famotidine 20 Mg/2 Ml Vial IVP 20 mg BID ALFREDA Administration Sodium Chloride 1,000 mls @ 100 mls/hr 10/28/24 08:00 10/28/24 08:51 Normal Saline 0.9% IV 100 mls/hr .Q10H ALFREDA Administration Lorazepam 1 mg 10/27/24 21:52 Lorazepam 2 Mg/Ml Vial IVP Q30M PRN CIWA >8 Protocol Nystatin 1 applic 10/28/24 14:00 Nystatin Powder 15 Gm TOP BID ALFREDA Ondansetron HCl 4 mg 10/27/24 21:52 10/28/24 08:51 Ondansetron 4 Mg/2 Ml Vial IVP 4 mg Q6HR PRN Administration Nausea / Vomiting Oxycodone HCl 5 mg 10/27/24 22:06 10/27/24 22:40 Oxycodone 5 Mg Tablet PO 5 mg Q4HR PRN Administration Moderate Pain (Level 4-6) Potassium Chloride 20 meq 10/28/24 12:00 10/28/24 12:37 Potassium Chloride 20 Meq Tablet PO 10/28/24 16:01 20 meq Q2H ALFREDA Administration Multivit/Folic Acid/Iron 1 tab 10/28/24 09:00 10/28/24 08:52 Vitamin Tablet PO 1 tab DAILY ALFREDA Administration Prochlorperazine Edisylate 10 mg 10/27/24 21:52 10/28/24 12:43 Prochlorperazine 10 Mg/2 Ml Vial IVP 10 mg Q6HR PRN Administration Nausea / Vomiting Sodium Chloride 10 ml 10/27/24 21:52 Sodium Chloride Flush 0.9% 10 Ml Syringe IVP PRN PRN NEEDED PER PROVIDER ORDERS Sodium Chloride 10 ml 10/28/24 01:00 10/28/24 12:44 Sodium Chloride Flush 0.9% 10 Ml Syringe IVP 10 ml 0100,0900,1700 ALFREDA Administration Sodium Chloride 1 gm 10/28/24 09:00 10/28/24 08:52 Sodium Chloride 1 Gm Tablet PO 1 gm DAILY ALFREDA Administration Trazodone HCl 50 mg 10/27/24 23:00 10/27/24 22:53 Trazodone 50 Mg Tablet PO 50 mg QPM ALFREDA Administration Objective Vital Signs/Intake & Output Reviewed Vital Signs: Yes Vital Signs: Vital Signs x48h Temp Pulse Resp BP Pulse Ox 10/28/24 08:43 36.5 C 90 18 90/65 95 Intake & Output: Intake & Output 10/25/24 10/26/24 10/27/24 10/28/24 23:59 23:59 23:59 23:59 Intake Total 2170 / 2170 Output Total 200 / 200 Balance 1969 / 1969 Weight (kg) 46 kg Objective General Appearance: positive No acute distress and Alert Eyes Bilateral: positive Normal inspection, PERRL and Conjunctivae nml ENT: positive ENT inspection nml Neck: positive Nml inspection Respiratory: positive Chest non-tender, No respiratory distress and Breath sounds nml Cardiovascular: positive Regular rate & rhythm Abdomen: positive No distention Skin: positive Other (mild erythema under her left breast with scaling. minimal under her right breast. ) Lab Results 10/28/24 05:55 10/28/24 05:55 Other Labs: Lab Results x24hrs 10/28/24 10/28/24 10/27/24 Range/Units 05:55 02:29 20:17 WBC 8.7 15.4 H (4.8-10.8) x10^3/uL RBC 3.14 L 3.99 L (4.20-5.40) 10^6/uL Hgb 11.0 L 14.0 (12.0-16.0) g/dL Hct 31.8 L 39.8 (37.0-47.0) % MCV 101.3 H 99.7 H (81.0-99.0) fL MCH 35.0 H 35.1 H (27.0-31.0) pg MCHC 34.6 35.2 (32.0-36.0) g/dL RDW 15.9 H 15.8 H (12.0-15.0) % Plt Count 252 362 (130-450) 10^3/uL MPV 8.6 8.6 (7.9-10.8) fL Neut # (Auto) 6.4 10.1 H (1.5-6.6) 10^3/uL Lymph # (Auto) 1.5 3.6 H (1.5-3.5) 10^3/uL [place] # (Auto) 0.8 1.5 H (0.0-1.0) 10^3/uL Eos # (Auto) 0.0 0.0 (0.0-0.7) 10^3/uL Baso # (Auto) 0.0 0.1 (0.0-0.1) 10^3/uL Absolute Nucleated RBC 0.00 0.00 x10^3/uL Nucleated RBC % 0.0 0.0 /100WBC Sodium 124 L 122 L 120 L* (135-145) mmol/L Potassium 3.3 L 3.4 L (3.5-4.5) mmol/L Chloride 92 L 79 L* (101-111) mmol/L Carbon Dioxide 26 29 (21-32) mmol/L Anion Gap 6.0 12.0 (6-13) BUN 5 L 5 L (6-20) mg/dL Creatinine 0.6 0.6 (0.6-1.3) mg/dL Estimated GFR (MDRD) 101 101 (>89) Glucose 92 99 (74-104) mg/dL Calcium 7.6 L 8.9 (8.5-10.3) mg/dL Phosphorus 2.8 3.0 (2.5-5.0) mg/dL Magnesium 1.7 1.8 (1.7-2.3) mg/dL Total Bilirubin 0.4 (0.2-1.0) mg/dL AST 18 (10-42) IU/L ALT 18 (10-60) IU/L Alkaline Phosphatase 118 (42-121) IU/L B-Natriuretic Peptide 60 (5-100) pg/mL Total Protein 6.3 L (6.4-8.9) g/dL Albumin 3.6 (3.2-5.5) g/dL Globulin 2.7 (2.1-4.2) g/dL Albumin/Globulin Ratio 1.3 (1.0-2.2) Lipase 13 (11-82) U/L Urine Color Urine Clarity (CLEAR) Urine pH (5.0-7.5) PH Ur Specific [place] (1.002-1.030) Urine Protein (NEGATIVE) mg/dL Urine Glucose (UA) (NEGATIVE) mg/dL Urine Ketones (NEGATIVE) mg/dL Urine Occult Blood (NEGATIVE) Urine Nitrite (NEGATIVE) Urine Bilirubin (NEGATIVE) Urine Urobilinogen (NORMAL) E.U./dL Ur Leukocyte Esterase (NEGATIVE) Urine RBC (0-5) /HPF Urine WBC (0-5) /HPF Ur Squamous Epith Cells (<= Few) Urine Bacteria (None Seen) /HPF Urine Culture Comments 10/27/24 Range/Units 17:00 WBC (4.8-10.8) x10^3/uL RBC (4.20-5.40) 10^6/uL Hgb (12.0-16.0) g/dL Hct (37.0-47.0) % MCV (81.0-99.0) fL MCH (27.0-31.0) pg MCHC (32.0-36.0) g/dL RDW (12.0-15.0) % Plt Count (130-450) 10^3/uL MPV (7.9-10.8) fL Neut # (Auto) (1.5-6.6) 10^3/uL Lymph # (Auto) (1.5-3.5) 10^3/uL [place] # (Auto) (0.0-1.0) 10^3/uL Eos # (Auto) (0.0-0.7) 10^3/uL Baso # (Auto) (0.0-0.1) 10^3/uL Absolute Nucleated RBC x10^3/uL Nucleated RBC % /100WBC Sodium (135-145) mmol/L Potassium (3.5-4.5) mmol/L Chloride (101-111) mmol/L Carbon Dioxide (21-32) mmol/L Anion Gap (6-13) BUN (6-20) mg/dL Creatinine (0.6-1.3) mg/dL Estimated GFR (MDRD) (>89) Glucose (74-104) mg/dL Calcium (8.5-10.3) mg/dL Phosphorus (2.5-5.0) mg/dL Magnesium (1.7-2.3) mg/dL Total Bilirubin (0.2-1.0) mg/dL AST (10-42) IU/L ALT (10-60) IU/L Alkaline Phosphatase (42-121) IU/L B-Natriuretic Peptide (5-100) pg/mL Total Protein (6.4-8.9) g/dL Albumin (3.2-5.5) g/dL Globulin (2.1-4.2) g/dL Albumin/Globulin Ratio (1.0-2.2) Lipase (11-82) U/L Urine Color COLORLESS Urine Clarity CLEAR (CLEAR) Urine pH 7.0 (5.0-7.5) PH Ur Specific [place] <=1.005 (1.002-1.030) Urine Protein NEGATIVE (NEGATIVE) mg/dL Urine Glucose (UA) NEGATIVE (NEGATIVE) mg/dL Urine Ketones NEGATIVE (NEGATIVE) mg/dL Urine Occult Blood NEGATIVE (NEGATIVE) Urine Nitrite NEGATIVE (NEGATIVE) Urine Bilirubin NEGATIVE (NEGATIVE) Urine Urobilinogen 0.2 (NORMAL) (NORMAL) E.U./dL Ur Leukocyte Esterase NEGATIVE (NEGATIVE) Urine RBC 0-5 (0-5) /HPF Urine WBC 0-3 (0-5) /HPF Ur Squamous Epith Cells MOD Squamous H (<= Few) Urine Bacteria None Seen (None Seen) /HPF Urine Culture Comments NOT INDICATED Assessment/Plan Problem List (1) Acute hyponatremia: Impression: She has had minimal oral intake for the last week. She is experiencing some dyspepsia and dyphagia as well as vomiting. This started around the same time that she started bactrim for cellulitis. I wonder if this could be the root of the problem that led to the minimal oral intake that eventually caused the hyponatremia. Hyponatremia could also be caused in combination w her chronic alcohol use. I am holding lasix at this time. (2) Cellulitis: Impression: LLE appears less erythematous than at admit. She states that it is incredibly improved from when seen about a week ago in the [facility]. Qualifiers: Laterality: unspecified laterality Site of cellulitis: extremity Site of cellulitis of extremity: lower extremity Qualified Code(s): L03.119 - Cellulitis of unspecified part of limb (3) Alcohol abuse: Impression: Does not appear to have alcohol withdrawal at this time. I will leave [facility] protocol in place for another 24 hours. Son called last evening. he lives in [facility]. I have spoken with him numerous times in the past. he has grave concerns regarding her ability to care for herself. She has refused assistance multiple times in the past, and it has been difficult to get her to accept help. (4) History of lung cancer: Impression: It has been 2 years at least since last surveillance scan. (5) Hypokalemia: Impression: not tolerating oral repletion. I have started IV repletion. I have spent 36 minutes in the care of this patient today. This includes time [id number], review and ordering of diagnostic imaging and laboratory studies. Monitoring the patient's signs symptoms, evaluation of medication effectiveness and patient's response to treatment.
[2024-10-28] MEDS: NYSTATIN POWDER 15 GM TOP SCH (14:13)
[2024-10-28] MEDS: POTASSIUM CHLOR 10 MEQ/100 ML 10 MEQ/100 ML BAG IV SCH (14:13)
--- NOTE | 2024-10-28 14:16 | PHARMACY PROGRESS NOTE ---
Best Possible Medication History Admit Date and Time: 10/27/24 2111 Home Medications Medication Instructions Recorded Confirmed Type furosemide 20 mg tablet 20 mg PO QDAY #30 tabs 10/21/24 10/28/24 Rx sulfamethoxazole 800 1 tab PO BID 7 days #14 tabs 10/21/24 10/28/24 Rx mg-trimethoprim 160 mg tablet Processed by: Pharmacy Medications reviewed in ED?: No Medication History completed: Yes Patient Interview: Completed Secondary Source(s): Insurance records [facility] Statement: Per patient interview with pharmacist and [employer] insurance records review. As the person ultimately responsible for medication therapy, providers are able to order a medication from an existing home medication list in [facility] via the "Reconcile Routine" prior to Confirmation of that medication by retail support associate. Such practice is discouraged except when the physician, in their clinical judgment, deems that a medical need exists for a medication without regard to previous use.
[2024-10-28 17:47] LABS: CALCIUM 8.1 mg/dL (8.5-10.3); CREATININE 0.6 mg/dL (0.6-1.3); POTASSIUM 4.6 mmol/L (3.5-4.5)
[2024-10-28] MEDS ORDERED: traZODone 50 MG TABLET PO SCH (21:00)
[2024-10-29 05:30] LABS: BASOPHILS # (AUTO) 0.1 10^3/uL (0.0-0.1); BASOPHILS % (AUTO) 0.7 %; EOSINOPHILS % (AUTO) 0.3 %; HCT - HEMATOCRIT 34.1 % (37.0-47.0); HGB - HEMOGLOBIN 11.2 g/dL (12.0-16.0); LYMPHOCYTES # (AUTO) 3.2 10^3/uL (1.5-3.5); LYMPHOCYTES % (AUTO) 28.2 %; MEAN CORPUSCULAR HGB CONC 32.8 g/dL (32.0-36.0); MEAN CORPUSCULAR VOLUME 106.6 fL (81.0-99.0); MEAN PLATELET VOLUME 8.6 fL (7.9-10.8); MONOCYTES % (AUTO) 8.9 %; NEUTROPHILS # (AUTO) 6.8 10^3/uL (1.5-6.6); PLT - PLATELET COUNT 284 10^3/uL (130-450); RED CELL DISTRIBUTION WIDTH 16.1 % (12.0-15.0); WHITE BLOOD COUNT 11.2 x10^3/uL (4.8-10.8)
[2024-10-29 05:45] LABS: CALCIUM 8.3 mg/dL (8.5-10.3); CREATININE 0.5 mg/dL (0.6-1.3); POTASSIUM 4.2 mmol/L (3.5-4.5)
[2024-10-29] MEDS ORDERED: POTASSIUM CHLORIDE 20 MEQ TABLET PO SCH (08:30)
--- NOTE | 2024-10-29 15:22 | PROVIDER PROGRESS NOTE ---
Subjective Prog Note Date Prog Note Date: 10/29/24 Subjective Subjective: She is feeling better. She is eating and drinking. She is making a real effort to do so because she wants to go home. At home, she is limiting her wine consumption and mixing it with club soda. her vomting started with the bactrim rx. She tells me that she had not been taking lasix at home. Current Medications Current Medications Current Medications: Current Medications Generic Name Dose Route Start Last Admin Trade Name Freq PRN Reason Stop Dose Admin Acetaminophen 650 mg 10/27/24 21:52 Acetaminophen 325 Mg Tablet PO Q4HR PRN Pain 1 to 4, or Fever Calcium Carbonate/Glycine 500 mg 10/28/24 11:29 10/28/24 12:37 Calcium Carbonate Chew 500 Mg Tablet PO 500 mg Q4H PRN Administration dyspepsia Ceftriaxone Sodium 1 gm 10/27/24 23:00 10/28/24 22:43 Ceftriaxone 1 Gm Vial IVP 1 gm Q24H ALFREDA Administration Enoxaparin Sodium 40 mg 10/28/24 09:00 10/29/24 08:06 Enoxaparin 40 Mg/0.4 Ml Syringe SUBQ 40 mg DAILY ALFREDA Administration Famotidine 20 mg 10/27/24 22:00 10/29/24 08:06 Famotidine 20 Mg/2 Ml Vial IVP 20 mg BID ALFREDA Administration Lorazepam 1 mg 10/27/24 21:52 Lorazepam 2 Mg/Ml Vial IVP Q30M PRN CIWA >8 Protocol Nystatin 1 applic 10/28/24 14:00 10/29/24 08:06 Nystatin Powder 15 Gm TOP 1 applic BID ALFREDA Administration Ondansetron HCl 4 mg 10/27/24 21:52 10/28/24 08:51 Ondansetron 4 Mg/2 Ml Vial IVP 4 mg Q6HR PRN Administration Nausea / Vomiting Oxycodone HCl 5 mg 10/27/24 22:06 10/29/24 05:04 Oxycodone 5 Mg Tablet PO 5 mg Q4HR PRN Administration Moderate Pain (Level 4-6) Multivit/Folic Acid/Iron 1 tab 10/28/24 09:00 10/29/24 08:06 Vitamin Tablet PO 1 tab DAILY ALFREDA Administration Prochlorperazine Edisylate 10 mg 10/27/24 21:52 10/28/24 12:43 Prochlorperazine 10 Mg/2 Ml Vial IVP 10 mg Q6HR PRN Administration Nausea / Vomiting Sodium Chloride 10 ml 10/27/24 21:52 Sodium Chloride Flush 0.9% 10 Ml Syringe IVP PRN PRN NEEDED PER PROVIDER ORDERS Sodium Chloride 10 ml 10/28/24 01:00 10/29/24 08:07 Sodium Chloride Flush 0.9% 10 Ml Syringe IVP 10 ml 0100,0900,1700 ALFREDA Administration Sodium Chloride 1 gm 10/28/24 21:00 10/29/24 08:06 Sodium Chloride 1 Gm Tablet PO 1 gm BID ALFREDA Administration Trazodone HCl 50 mg 10/27/24 23:00 10/28/24 20:56 Trazodone 50 Mg Tablet PO 50 mg QPM ALFREDA Administration Objective Vital Signs/Intake & Output Reviewed Vital Signs: Yes Vital Signs: Vital Signs x48h Temp Pulse Resp BP Pulse Ox 10/29/24 07:50 36.7 C 82 20 119/75 98 Intake & Output: Intake & Output 10/26/24 10/27/24 10/28/24 10/29/24 23:59 23:59 23:59 23:59 Intake Total 4030 / 4030 2639 / 2639 Output Total 200 / 200 Balance 3830 / 3830 2639 / 2639 Weight (kg) 46 kg Objective General Appearance: positive No acute distress and Alert Eyes Bilateral: positive Normal inspection ENT: positive ENT inspection nml Neck: positive Nml inspection Respiratory: positive Chest non-tender, No respiratory distress and Breath sounds nml Cardiovascular: positive Regular rate & rhythm Abdomen: positive No distention Back: positive Nml inspection Skin: positive Color nml and Other (there is decreased erythema and swelling at the LLE. no wounds. ) Extremities: positive Non-tender and Pedal edema (mild bilateral) Neurologic/Psychiatric: positive Oriented x3 Lab Results 10/29/24 05:00 10/29/24 15:01 Other Labs: Lab Results x24hrs 10/29/24 10/28/24 Range/Units 05:00 17:29 WBC 11.2 H (4.8-10.8) x10^3/uL RBC 3.20 L (4.20-5.40) 10^6/uL Hgb 11.2 L (12.0-16.0) g/dL Hct 34.1 L (37.0-47.0) % MCV 106.6 H (81.0-99.0) fL MCH 35.0 H (27.0-31.0) pg MCHC 32.8 (32.0-36.0) g/dL RDW 16.1 H (12.0-15.0) % Plt Count 284 (130-450) 10^3/uL MPV 8.6 (7.9-10.8) fL Neut # (Auto) 6.8 H (1.5-6.6) 10^3/uL Lymph # (Auto) 3.2 (1.5-3.5) 10^3/uL [place] # (Auto) 1.0 (0.0-1.0) 10^3/uL Eos # (Auto) 0.0 (0.0-0.7) 10^3/uL Baso # (Auto) 0.1 (0.0-0.1) 10^3/uL Absolute Nucleated RBC 0.00 x10^3/uL Nucleated RBC % 0.0 /100WBC Sodium 125 L 124 L (135-145) mmol/L Potassium 4.2 4.6 H (3.5-4.5) mmol/L Chloride 98 L 94 L (101-111) mmol/L Carbon Dioxide 22 26 (21-32) mmol/L Anion Gap 5.0 L 4.0 L (6-13) BUN 3 L 5 L (6-20) mg/dL Creatinine 0.5 L 0.6 (0.6-1.3) mg/dL Estimated GFR (MDRD) 125 101 (>89) Glucose 93 108 H (74-104) mg/dL Calcium 8.3 L 8.1 L (8.5-10.3) mg/dL Assessment/Plan Problem List (1) Acute hyponatremia: Impression: She has had minimal oral intake for the last week. She is experiencing some dyspepsia and dyphagia as well as vomiting. This started around the same time that she started bactrim for cellulitis. I wonder if this could be the root of the problem that led to the minimal oral intake that eventually caused the hyponatremia. Could be a disulfram type rxn related to bactrim and alcohol use. Hyponatremia could also be caused in combination w her chronic alcohol use. I am holding lasix at this time. 2 Laboratory Tests 10/27/24 10/28/24 10/28/24 20:17 02:29 05:55 Sodium 120 L* 122 L 124 L 10/28/24 10/29/24 10/29/24 17:29 05:00 15:01 Sodium 124 L 125 L 123 L She has decreased through the day with stopping the NS at 100/hr. I am going to give her 3% saline at 10ml/hr for about 6 hours and recheck her level. I have her on NACL tabs one gram twice daily. (2) Cellulitis: Impression: LLE appears less erythematous than at admit. She states that it is incredibly improved from when seen about a week ago in the [facility]. Her WBC is 11.2 this AM. I will continue rocephin, but will plan to dc to home off abx. Qualifiers: Laterality: unspecified laterality Site of cellulitis: extremity Site of cellulitis of extremity: lower extremity Qualified Code(s): L03.119 - Cellulitis of unspecified part of limb (3) Alcohol abuse: Impression: Does not appear to have alcohol withdrawal at this time. I will dc [facility] protocol. She is doing well with her alcoholism. she tells me that she is mixing her wine with club soda and not drinking a lot of it. a box is lasting her all week. . (4) History of lung cancer: Impression: It has been 2 years at least since last surveillance scan. (5) Hypokalemia: Impression: resolved. K 4.2 today. check BMP in the AM. I have spent 36 minutes in the care of this patient today. This includes time [id number], review and ordering of diagnostic imaging and laboratory studies. Monitoring the patient's signs symptoms, evaluation of medication effectiveness and patient's response to treatment.
[2024-10-29 15:23] LABS: CALCIUM 8.5 mg/dL (8.5-10.3); CREATININE 0.5 mg/dL (0.6-1.3); POTASSIUM 4.2 mmol/L (3.5-4.5)
[2024-10-29] MEDS ORDERED: SODIUM CHLORIDE 3% HYPERTONIC 0 ML IV SCH (16:00)
[2024-10-29] MEDS: SODIUM CHLORIDE 3% HYPERTONIC 50 ML IV SCH ×2 (17:26→22:38)
[2024-10-30 06:10] LABS: BASOPHILS # (AUTO) 0.1 10^3/uL (0.0-0.1); EOSINOPHILS # (AUTO) 0.1 10^3/uL (0.0-0.7); EOSINOPHILS % (AUTO) 1.2 %; HCT - HEMATOCRIT 35.2 % (37.0-47.0); HGB - HEMOGLOBIN 11.6 g/dL (12.0-16.0); LYMPHOCYTES # (AUTO) 2.9 10^3/uL (1.5-3.5); LYMPHOCYTES % (AUTO) 25.4 %; MEAN CORPUSCULAR VOLUME 106.3 fL (81.0-99.0); MEAN PLATELET VOLUME 8.6 fL (7.9-10.8); MONOCYTES # (AUTO) 1.1 10^3/uL (0.0-1.0); MONOCYTES % (AUTO) 9.3 %; NEUTROPHILS # (AUTO) 7.1 10^3/uL (1.5-6.6); NEUTROPHILS % (AUTO) 62.4 %; PLT - PLATELET COUNT 270 10^3/uL (130-450); RED BLOOD COUNT 3.31 10^6/uL (4.20-5.40); RED CELL DISTRIBUTION WIDTH 15.9 % (12.0-15.0); WHITE BLOOD COUNT 11.3 x10^3/uL (4.8-10.8)
[2024-10-30 06:27] LABS: CALCIUM 8.8 mg/dL (8.5-10.3); CREATININE 0.5 mg/dL (0.6-1.3); POTASSIUM 4.6 mmol/L (3.5-4.5)
[2024-10-30] MEDS: HYPERTONIC IV SCH (08:58)
[2024-10-30] MEDS: SODIUM CHLORIDE 3% IV SCH (08:58)
[2024-10-30] MEDS: THIAMINE 100 MG TABLET PO SCH (11:26)
[2024-10-30] MEDS: SODIUM CHLORIDE 1 GM TABLET PO ONE (11:26)
[2024-10-30 15:49] LABS: CALCIUM 9.1 mg/dL (8.5-10.3); CREATININE 0.5 mg/dL (0.6-1.3); POTASSIUM 4.1 mmol/L (3.5-4.5)
[2024-10-30] MEDS: PSYLLIUM PACKET PO SCH (16:57)
[2024-10-30] MEDS: SODIUM CHLORIDE 3% HYPERTONIC 500 ML IV SCH (16:59)
--- NOTE | 2024-10-30 19:30 | PROVIDER PROGRESS NOTE ---
Subjective Prog Note Date Prog Note Date: 10/30/24 Subjective Pt reports feeling: Improved Subjective: She continues to feel better every day. wants to go home [facility]. Current Medications Current Medications Current Medications: Current Medications Generic Name Dose Route Start Last Admin Trade Name Freq PRN Reason Stop Dose Admin Acetaminophen 650 mg 10/27/24 21:52 Acetaminophen 325 Mg Tablet PO Q4HR PRN Pain 1 to 4, or Fever Calcium Carbonate/Glycine 500 mg 10/28/24 11:29 10/28/24 12:37 Calcium Carbonate Chew 500 Mg Tablet PO 500 mg Q4H PRN Administration dyspepsia Ceftriaxone Sodium 1 gm 10/27/24 23:00 10/30/24 00:12 Ceftriaxone 1 Gm Vial IVP 1 gm Q24H ALFREDA Administration Enoxaparin Sodium 40 mg 10/28/24 09:00 10/30/24 08:36 Enoxaparin 40 Mg/0.4 Ml Syringe SUBQ 40 mg DAILY ALFREDA Administration Famotidine 20 mg 10/27/24 22:00 10/30/24 08:37 Famotidine 20 Mg/2 Ml Vial IVP 20 mg BID ALFREDA Administration Sodium Chloride 500 mls @ 15 mls/hr 10/30/24 12:00 10/30/24 16:59 Sodium Chloride 3% Hypertonic IV 15 mls/hr .[id number] ALFREDA Administration Lorazepam 1 mg 10/27/24 21:52 Lorazepam 2 Mg/Ml Vial IVP Q30M PRN CIWA >8 Protocol Nystatin 1 applic 10/28/24 14:00 10/30/24 08:37 Nystatin Powder 15 Gm TOP 1 applic BID ALFREDA Administration Ondansetron HCl 4 mg 10/27/24 21:52 10/28/24 08:51 Ondansetron 4 Mg/2 Ml Vial IVP 4 mg Q6HR PRN Administration Nausea / Vomiting Oxycodone HCl 5 mg 10/27/24 22:06 10/29/24 16:15 Oxycodone 5 Mg Tablet PO 5 mg Q4HR PRN Administration Moderate Pain (Level 4-6) Multivit/Folic Acid/Iron 1 tab 10/28/24 09:00 10/30/24 08:37 Vitamin Tablet PO 1 tab DAILY ALFREDA Administration Prochlorperazine Edisylate 10 mg 10/27/24 21:52 10/28/24 12:43 Prochlorperazine 10 Mg/2 Ml Vial IVP 10 mg Q6HR PRN Administration Nausea / Vomiting Psyllium Hydrophilic Mucilloid 1 packet 10/30/24 13:00 10/30/24 16:57 Psyllium Packet PO 1 packet DAILY ALFREDA Administration Sodium Chloride 10 ml 10/27/24 21:52 Sodium Chloride Flush 0.9% 10 Ml Syringe IVP PRN PRN NEEDED PER PROVIDER ORDERS Sodium Chloride 10 ml 10/28/24 01:00 10/30/24 16:55 Sodium Chloride Flush 0.9% 10 Ml Syringe IVP Not Given 0100,0900,1700 ALFREDA Sodium Chloride 2 gm 10/30/24 21:00 Sodium Chloride 1 Gm Tablet PO BID ALFREDA Thiamine HCl 100 mg 10/30/24 10:00 10/30/24 11:26 Thiamine 100 Mg Tablet PO 100 mg DAILY ALFREDA Administration Trazodone HCl 50 mg 10/27/24 23:00 10/29/24 20:57 Trazodone 50 Mg Tablet PO 50 mg QPM ALFREDA Administration Objective Vital Signs/Intake & Output Reviewed Vital Signs: Yes Vital Signs: Vital Signs x48h Temp Pulse Resp BP Pulse Ox 10/30/24 15:59 36.5 C 91 18 131/88 H 96 Intake & Output: Intake & Output 10/27/24 10/28/24 10/29/24 10/30/24 23:59 23:59 23:59 23:59 Intake Total 4030 / 4030 2762 / 2762 897 / 897 Output Total 200 / 200 Balance 3830 / 3830 2762 / 2762 897 / 897 Weight (kg) 46 kg Objective General Appearance: positive No acute distress and Alert Eyes Bilateral: positive Normal inspection ENT: positive ENT inspection nml Neck: positive Nml inspection Respiratory: positive Chest non-tender, No respiratory distress and Breath sounds nml Cardiovascular: positive Regular rate & rhythm Abdomen: positive No distention Back: positive Nml inspection Skin: positive Color nml and Other (there is decreased erythema and swelling at the LLE. no wounds. ) Extremities: positive Non-tender and Pedal edema (mild bilateral L>R) Neurologic/Psychiatric: positive Oriented x3 Lab Results 10/30/24 05:58 10/30/24 15:22 Other Labs: Lab Results x24hrs 10/30/24 10/30/24 10/30/24 Range/Units 15:22 14:20 05:58 WBC 11.3 H (4.8-10.8) x10^3/uL RBC 3.31 L (4.20-5.40) 10^6/uL Hgb 11.6 L (12.0-16.0) g/dL Hct 35.2 L (37.0-47.0) % MCV 106.3 H (81.0-99.0) fL MCH 35.0 H (27.0-31.0) pg MCHC 33.0 (32.0-36.0) g/dL RDW 15.9 H (12.0-15.0) % Plt Count 270 (130-450) 10^3/uL MPV 8.6 (7.9-10.8) fL Neut # (Auto) 7.1 H (1.5-6.6) 10^3/uL Lymph # (Auto) 2.9 (1.5-3.5) 10^3/uL [place] # (Auto) 1.1 H (0.0-1.0) 10^3/uL Eos # (Auto) 0.1 (0.0-0.7) 10^3/uL Baso # (Auto) 0.1 (0.0-0.1) 10^3/uL Absolute Nucleated RBC 0.00 x10^3/uL Nucleated RBC % 0.0 /100WBC Sodium 127 L 125 L (135-145) mmol/L Potassium 4.1 4.6 H (3.5-4.5) mmol/L Chloride 97 L 96 L (101-111) mmol/L Carbon Dioxide 23 22 (21-32) mmol/L Anion Gap 7.0 7.0 (6-13) BUN 3 L 3 L (6-20) mg/dL Creatinine 0.5 L 0.5 L (0.6-1.3) mg/dL Estimated GFR (MDRD) 125 125 (>89) Glucose 107 H 98 (74-104) mg/dL Calcium 9.1 8.8 (8.5-10.3) mg/dL Stl C. diff Tox B Gene NEGATIVE (NEGATIVE) 10/29/24 Range/Units 21:01 WBC (4.8-10.8) x10^3/uL RBC (4.20-5.40) 10^6/uL Hgb (12.0-16.0) g/dL Hct (37.0-47.0) % MCV (81.0-99.0) fL MCH (27.0-31.0) pg MCHC (32.0-36.0) g/dL RDW (12.0-15.0) % Plt Count (130-450) 10^3/uL MPV (7.9-10.8) fL Neut # (Auto) (1.5-6.6) 10^3/uL Lymph # (Auto) (1.5-3.5) 10^3/uL [place] # (Auto) (0.0-1.0) 10^3/uL Eos # (Auto) (0.0-0.7) 10^3/uL Baso # (Auto) (0.0-0.1) 10^3/uL Absolute Nucleated RBC x10^3/uL Nucleated RBC % /100WBC Sodium 125 L (135-145) mmol/L Potassium (3.5-4.5) mmol/L Chloride (101-111) mmol/L Carbon Dioxide (21-32) mmol/L Anion Gap (6-13) BUN (6-20) mg/dL Creatinine (0.6-1.3) mg/dL Estimated GFR (MDRD) (>89) Glucose (74-104) mg/dL Calcium (8.5-10.3) mg/dL Stl C. diff Tox B Gene (NEGATIVE) Assessment/Plan Problem List (1) Acute hyponatremia: Impression: She has had minimal oral intake for the last week. She is experiencing some dyspepsia and dyphagia as well as vomiting. This started around the same time that she started bactrim for cellulitis. I wonder if this could be the root of the problem that led to the minimal oral intake that eventually caused the hyponatremia. Could be a disulfram type rxn related to bactrim and alcohol use. Hyponatremia could also be caused in combination w her chronic alcohol use. I am holding lasix at this time. peripheral edema is not worse off the lasix Laboratory Tests 10/27/24 10/28/24 10/28/24 20:17 02:29 05:55 Sodium 120 L* 122 L 124 L 10/28/24 10/29/24 10/29/24 17:29 05:00 15:01 Sodium 124 L 125 L 123 L 10/29/24 10/30/24 10/30/24 21:01 05:58 15:22 Sodium 125 L 125 L 127 L I have increased NaCl tabs to 2g BID. I have been giving her 3% saline for a bit over 24 hours, and she is correcting. She has not vomited since admit. Her normal Na level is 131-132, therefore I would feel comfortable sending her out at about 128. Will monitor overnight, and recheck Na every 6 hours. (2) Cellulitis: Impression: LLE appears less erythematous than at admit. She states that it is incredibly improved from when seen about a week ago in the [facility]. Her WBC is 11.3 this AM. I will continue rocephin, but will plan to dc to home off abx. today is day 4. Qualifiers: Site of cellulitis: extremity Site of cellulitis of extremity: lower extremity Laterality: unspecified laterality Qualified Code(s): L03.119 - Cellulitis of unspecified part of limb (3) Alcohol abuse: Impression: Does not appear to have alcohol withdrawal at this time. I will dc [facility] protocol. She is doing well with her alcoholism. she tells me that she is mixing her wine with club soda and not drinking a lot of it. a box is lasting her all week. . (4) History of lung cancer: Impression: It has been 2 years at least since last surveillance scan. (5) Hypokalemia: Impression: resolved. K 4.6 today. check BMP in the AM. I have spent 38 minutes in the care of this patient today. This includes time [id number], review and ordering of diagnostic imaging and laboratory studies. Monitoring the patient's signs symptoms, evaluation of medication effectiveness and patient's response to treatment.
[2024-10-30] MEDS: SODIUM CHLORIDE 1 GM TABLET PO SCH (20:20)
[2024-10-31 04:38] LABS: CALCIUM 8.8 mg/dL (8.5-10.3); CREATININE 0.5 mg/dL (0.6-1.3); POTASSIUM 3.6 mmol/L (3.5-4.5)
[2024-10-31] MEDS ORDERED: LORazepam 1 MG TABLET PO PRN (10:22)
[2024-10-31 10:51] LABS: BASOPHILS # (AUTO) 0.1 10^3/uL (0.0-0.1); EOSINOPHILS # (AUTO) 0.1 10^3/uL (0.0-0.7); EOSINOPHILS % (AUTO) 0.7 %; HCT - HEMATOCRIT 37.1 % (37.0-47.0); HGB - HEMOGLOBIN 12.3 g/dL (12.0-16.0); LYMPHOCYTES % (AUTO) 21.2 %; MEAN CORPUSCULAR HEMOGLOBIN 35.8 pg (27.0-31.0); MEAN CORPUSCULAR HGB CONC 33.2 g/dL (32.0-36.0); MEAN CORPUSCULAR VOLUME 107.8 fL (81.0-99.0); MEAN PLATELET VOLUME 8.9 fL (7.9-10.8); MONOCYTES # (AUTO) 1.2 10^3/uL (0.0-1.0); MONOCYTES % (AUTO) 12.3 %; NEUTROPHILS % (AUTO) 64.1 %; PLT - PLATELET COUNT 243 10^3/uL (130-450); RED BLOOD COUNT 3.44 10^6/uL (4.20-5.40); RED CELL DISTRIBUTION WIDTH 16.1 % (12.0-15.0); WHITE BLOOD COUNT 9.4 x10^3/uL (4.8-10.8)
[2024-10-31] MEDS: LORazepam 1 MG TABLET PO PRN (11:34)
[2024-10-31] MEDS: LORazepam 2 MG/ML VIAL IVP PRN (13:57)
--- NOTE | 2024-10-31 20:17 | PROVIDER PROGRESS NOTE ---
Subjective Prog Note Date Prog Note Date: 10/31/24 Subjective Subjective: She started out the morning with some mild hallucinations. She knew that what she was seeing was not real. She thought that she was next to the [place] across the road. She was able to convince herself that she was in the hospital and that everything was fine. She was independently ambulatory in the room. She was not tremulous she was not diaphoretic nor was she tachycardic. Then as the day progressed she lost touch with reality. She had an episode around midday of fecal incontinence and was found by the nurse using the spoon from her lunch tray to spoon her stool onto her plate. At that point she received some Ativan and has been resting the rest of the day. She wakes up and opens her eyes but otherwise has been sleeping soundly. Current Medications Current Medications Current Medications: Current Medications Generic Name Dose Route Start Last Admin Trade Name Freq PRN Reason Stop Dose Admin Acetaminophen 650 mg 10/27/24 21:52 Acetaminophen 325 Mg Tablet PO Q4HR PRN Pain 1 to 4, or Fever Calcium Carbonate/Glycine 500 mg 10/28/24 11:29 10/28/24 12:37 Calcium Carbonate Chew 500 Mg Tablet PO 500 mg Q4H PRN Administration dyspepsia Enoxaparin Sodium 40 mg 10/28/24 09:00 10/31/24 09:31 Enoxaparin 40 Mg/0.4 Ml Syringe SUBQ 40 mg DAILY ALFREDA Administration Famotidine 20 mg 10/27/24 22:00 10/31/24 11:33 Famotidine 20 Mg/2 Ml Vial IVP 20 mg BID ALFREDA Administration Sodium Chloride 500 mls @ 15 mls/hr 10/30/24 12:00 10/31/24 18:09 Sodium Chloride 3% Hypertonic IV 15 mls/hr .[id number] ALFREDA Administration Lorazepam 1 mg 10/31/24 10:22 10/31/24 11:34 Lorazepam 1 Mg Tablet PO 1 mg Q6H PRN Administration Anxiety Nystatin 1 applic 10/28/24 14:00 10/31/24 09:31 Nystatin Powder 15 Gm TOP 1 applic BID ALFREDA Administration Ondansetron HCl 4 mg 10/27/24 21:52 10/28/24 08:51 Ondansetron 4 Mg/2 Ml Vial IVP 4 mg Q6HR PRN Administration Nausea / Vomiting Oxycodone HCl 5 mg 10/27/24 22:06 10/29/24 16:15 Oxycodone 5 Mg Tablet PO 5 mg Q4HR PRN Administration Moderate Pain (Level 4-6) Multivit/Folic Acid/Iron 1 tab 10/28/24 09:00 10/31/24 09:31 Vitamin Tablet PO 1 tab DAILY ALFREDA Administration Prochlorperazine Edisylate 10 mg 10/27/24 21:52 10/28/24 12:43 Prochlorperazine 10 Mg/2 Ml Vial IVP 10 mg Q6HR PRN Administration Nausea / Vomiting Psyllium Hydrophilic Mucilloid 1 packet 10/30/24 13:00 10/31/24 09:33 Psyllium Packet PO Not Given DAILY ALFREDA Sodium Chloride 10 ml 10/27/24 21:52 Sodium Chloride Flush 0.9% 10 Ml Syringe IVP PRN PRN NEEDED PER PROVIDER ORDERS Sodium Chloride 10 ml 10/28/24 01:00 10/31/24 17:55 Sodium Chloride Flush 0.9% 10 Ml Syringe IVP Not Given 0100,0900,1700 ALFREDA Sodium Chloride 2 gm 10/30/24 21:00 10/31/24 09:31 Sodium Chloride 1 Gm Tablet PO 2 gm BID ALFREDA Administration Thiamine HCl 100 mg 10/30/24 10:00 10/31/24 09:31 Thiamine 100 Mg Tablet PO 100 mg DAILY ALFREDA Administration Trazodone HCl 50 mg 10/27/24 23:00 10/30/24 20:20 Trazodone 50 Mg Tablet PO 50 mg QPM ALFREDA Administration Objective Vital Signs/Intake & Output Reviewed Vital Signs: Yes Vital Signs: Vital Signs x48h Temp Pulse Resp BP Pulse Ox 10/31/24 15:40 36.5 C 102 H 20 139/87 H 97 Intake & Output: Intake & Output 10/28/24 10/29/24 10/30/24 10/31/24 23:59 23:59 23:59 23:59 Intake Total 4030 / 4030 2762 / 2762 897 / 897 438 / 438 Output Total 200 / 200 Balance 3830 / 3830 2762 / 2762 897 / 897 438 / 438 Objective General Appearance: positive No acute distress and Mild distress (this morning she is able to converse with me, somnolent this afternoon. ) Eyes Bilateral: positive Normal inspection ENT: positive ENT inspection nml Neck: positive Nml inspection Respiratory: positive Chest non-tender, No respiratory distress and Breath sounds nml Cardiovascular: positive Regular rate & rhythm Abdomen: positive No distention Back: positive Nml inspection Skin: positive Color nml and Other (there is decreased erythema and swelling at the LLE. no wounds. ) Extremities: positive Non-tender and Pedal edema (mild bilateral L>R) Neurologic/Psychiatric: positive Oriented x3 Lab Results 10/31/24 10:31 10/31/24 17:34 Other Labs: Lab Results x24hrs 10/31/24 10/31/24 10/31/24 Range/Units 17:34 11:48 10:31 WBC 9.4 (4.8-10.8) x10^3/uL RBC 3.44 L (4.20-5.40) 10^6/uL Hgb 12.3 (12.0-16.0) g/dL Hct 37.1 (37.0-47.0) % MCV 107.8 H (81.0-99.0) fL MCH 35.8 H (27.0-31.0) pg MCHC 33.2 (32.0-36.0) g/dL RDW 16.1 H (12.0-15.0) % Plt Count 243 (130-450) 10^3/uL MPV 8.9 (7.9-10.8) fL Neut # (Auto) 6.0 (1.5-6.6) 10^3/uL Lymph # (Auto) 2.0 (1.5-3.5) 10^3/uL [place] # (Auto) 1.2 H (0.0-1.0) 10^3/uL Eos # (Auto) 0.1 (0.0-0.7) 10^3/uL Baso # (Auto) 0.1 (0.0-0.1) 10^3/uL Absolute Nucleated RBC 0.00 x10^3/uL Nucleated RBC % 0.0 /100WBC Sodium 128 L 128 L (135-145) mmol/L Potassium (3.5-4.5) mmol/L Chloride (101-111) mmol/L Carbon Dioxide (21-32) mmol/L Anion Gap (6-13) BUN (6-20) mg/dL Creatinine (0.6-1.3) mg/dL Estimated GFR (MDRD) (>89) Glucose (74-104) mg/dL Calcium (8.5-10.3) mg/dL Ammonia 21.9 (18-72) umol/L 10/31/24 10/30/24 Range/Units 04:15 21:00 WBC (4.8-10.8) x10^3/uL RBC (4.20-5.40) 10^6/uL Hgb (12.0-16.0) g/dL Hct (37.0-47.0) % MCV (81.0-99.0) fL MCH (27.0-31.0) pg MCHC (32.0-36.0) g/dL RDW (12.0-15.0) % Plt Count (130-450) 10^3/uL MPV (7.9-10.8) fL Neut # (Auto) (1.5-6.6) 10^3/uL Lymph # (Auto) (1.5-3.5) 10^3/uL [place] # (Auto) (0.0-1.0) 10^3/uL Eos # (Auto) (0.0-0.7) 10^3/uL Baso # (Auto) (0.0-0.1) 10^3/uL Absolute Nucleated RBC x10^3/uL Nucleated RBC % /100WBC Sodium 127 L 128 L (135-145) mmol/L Potassium 3.6 (3.5-4.5) mmol/L Chloride 98 L (101-111) mmol/L Carbon Dioxide 21 (21-32) mmol/L Anion Gap 8.0 (6-13) BUN 2 L (6-20) mg/dL Creatinine 0.5 L (0.6-1.3) mg/dL Estimated GFR (MDRD) 125 (>89) Glucose 99 (74-104) mg/dL Calcium 8.8 (8.5-10.3) mg/dL Ammonia (18-72) umol/L Assessment/Plan Problem List (1) Acute encephalopathy: Impression: She became acutely encephalopathic over the course of this morning. She does have a history of alcohol use and alcohol withdrawal. And she had been actively drinking prior to admission. She is now hospital day 5 and likely outside the window to be developing alcohol withdrawal. She has intermittently during her hospitalization demonstrated short-term memory loss and very mild confusion. She does not recall when I go over information with her regarding what I believed to be the source of her primary diagnosis etc. She was treated with some Ativan for presumed alcohol withdrawal and became very somnolent and has slept away most of the day. This evening when I come in she opens her eyes to voice and once again recognizes that she is not completely oriented. She knows what day it is but when I ask her where she is she thinks she is at home. When I correct her she does understand that she is in the hospital and voices to me that she knows her thinking is not quite correct. We did check an ammonia level which is within normal limits. Her sodium has been quite stable over the course of today with checks every 6 hours. Hovering around 127-128. She tells me she wants to go home but she willing to do so with my blessing. While I explained to her that I was willing to let her go home with a sodium of 128 I am not willing to let her go home with his acute confusion. I have discontinued Ativan at this point. We will observe her overnight hopefully she will reorient and stay oriented and can discharge to home tomorrow. I am planning to continue hypertonic saline at 15 cc an hour overnight. I have ordered repeat sodium checks every 6 hours and will check a BMP in the a.m. (2) Acute hyponatremia: Impression: She has had minimal oral intake for the last week. She is experiencing some dyspepsia and dyphagia as well as vomiting. This started around the same time that she started bactrim for cellulitis. I wonder if this could be the root of the problem that led to the minimal oral intake that eventually caused the hyponatremia. Could be a disulfram type rxn related to bactrim and alcohol use. Hyponatremia could also be caused in combination w her chronic alcohol use. I am holding lasix at this time. peripheral edema is not worse off the lasix I have increased NaCl tabs to 2g BID. I have been giving her 3% saline. this is pushing her up, and I would like to continue to push her Na towards 130. (3) Cellulitis: Impression: LLE appears less erythematous than at admit. She states that it is incredibly improved from when seen about a week ago in the [facility]. Her WBC is 9.4this AM. today is day 5 of IV abx. I have stopped rocephin. . Qualifiers: Laterality: unspecified laterality Site of cellulitis: extremity Site of cellulitis of extremity: lower extremity Qualified Code(s): L03.119 - Cellulitis of unspecified part of limb (4) Alcohol abuse: Impression: Acute confusion this AM- possibly withdrawal. She is doing well with her alcoholism. she tells me that she is mixing her wine with club soda and not drinking a lot of it. a box is lasting her all week. . (5) History of lung cancer: Impression: It has been 2 years at least since last surveillance scan. (6) Hypokalemia: Impression: resolved. K 3.6 today. check BMP in the AM. I have spent 38 minutes in the care of this patient today. This includes time [id number], review and ordering of diagnostic imaging and laboratory studies. Monitoring the patient's signs symptoms, evaluation of medication effectiveness and patient's response to treatment.
[2024-11-01 05:56] LABS: BASOPHILS # (AUTO) 0.1 10^3/uL (0.0-0.1); EOSINOPHILS # (AUTO) 0.1 10^3/uL (0.0-0.7); HCT - HEMATOCRIT 36.5 % (37.0-47.0); HGB - HEMOGLOBIN 11.9 g/dL (12.0-16.0); LYMPHOCYTES % (AUTO) 26.9 %; MEAN CORPUSCULAR HEMOGLOBIN 34.9 pg (27.0-31.0); MEAN CORPUSCULAR HGB CONC 32.6 g/dL (32.0-36.0); MEAN PLATELET VOLUME 8.6 fL (7.9-10.8); MONOCYTES # (AUTO) 1.4 10^3/uL (0.0-1.0); MONOCYTES % (AUTO) 19.6 %; NEUTROPHILS # (AUTO) 3.7 10^3/uL (1.5-6.6); PLT - PLATELET COUNT 232 10^3/uL (130-450); RED BLOOD COUNT 3.41 10^6/uL (4.20-5.40); RED CELL DISTRIBUTION WIDTH 16.2 % (12.0-15.0); WHITE BLOOD COUNT 7.3 x10^3/uL (4.8-10.8)
[2024-11-01 06:15] LABS: CALCIUM 8.4 mg/dL (8.5-10.3); CREATININE 0.4 mg/dL (0.6-1.3); POTASSIUM 3.1 mmol/L (3.5-4.5)
[2024-11-01 16:20] VITALS: BP 118/75; TEMP 97.7; O2SAT 99
--- NOTE | 2024-11-01 17:01 | Discharge Summary ---
Discharge Summary Admit Date: 10/27/24 Discharge Date: 11/01/24 Discharging Provider: Zeb Escobar NP Primary Care Provider: Gloria Otto Code Status: Do Not Attempt Resuscitation DIAGNOSES Admission Diagnoses: Acute hyponatremia Cellulitis Alcohol abuse History of lung cancer Discharge Diagnoses with Status of Each Condition: Acute hyponatremiaresolved, discharging on p.o. sodium Cellulitisimproved on antibiotics Alcohol abusechronic History of lung cancerchronic HPI History of Present Illness: 64-year-old female known to me for alcohol use alcohol withdrawal and admission in June 2020 for after an acute event of being found down for a wellness check. She has been to the walk-in clinic twice over the course of the last month once for a dermatitis under her breasts and a second time for bilateral ankle swelling and pain less than a week ago. At that time she was seen by Dr. Johnson who sent labs and it turns out that she has hyponatremia. She was treated with furosemide and Bactrim for lower extremity swelling. Labs returned today showed a sodium of 120. She has been taking the Lasix 20 mg daily. She states she has not taken any Lasix or Bactrim today. For the last several weeks she states she has been vomiting on and off. She states it is not at all related to her alcohol ingestion she says it has no relationship at all to that. She states that her last drink was yesterday. She is very vague with me when I ask her how much she drinks and how often. HOSPITAL COURSE Hospital Course: She was admitted to the hospital and placed on hypertonic saline. Her sodium corrected to greater than 130. She made it past the acute phase of alcohol withdrawal. She still has very occasional hallucinations and short-term memory loss. She is being discharged home with oral sodium replacement as well as vitamin supplementation. She completed a 5-day course of Rocephin for cellulitis. She has been encouraged to follow-up with her PCP and to stop drinking. She may benefit from alcohol rehab, but she has refused this consistently ALLERGIES Allergies Allergy/AdvReac Type Severity Reaction Status Date / Time Penicillins Allergy Mild Rash Verified 10/27/24 17:49 morphine Allergy Hallucinati Verified 10/27/24 17:49 ons MEDICATIONS Ambulatory Orders Medication Instructions Recorded Confirmed furosemide 20 mg tablet 20 mg PO QDAY #30 tabs 10/21/24 10/28/24 sulfamethoxazole 800 1 tab PO BID 7 days #14 tabs 10/21/24 10/28/24 mg-trimethoprim 160 mg tablet vit,calcium 27-ferrous 1 tab PO DAILY 30 days #30 tabs 11/01/24 fum 60 mg iron-folic acid 1 mg tablet (Trinatal Rx 1) sodium chloride 1,000 mg soluble 2,000 mg (2 x 1,000 mg) PO BID 10 11/01/24 tablet days #40 tabs thiamine mononitrate (vit B1) 100 100 mg PO DAILY 30 days #30 tabs 11/01/24 mg tablet PHYSICAL EXAM AT DISCHARGE Vital Signs: Vital Signs x48h Temp Pulse Resp BP Pulse Ox 11/01/24 16:20 36.5 C 74 18 118/75 99 11/01/24 14:00 36.8 C 92 18 140/72 H 95 General Appearance: positive No acute distress and Alert Eyes Bilateral: positive Normal inspection ENT: positive ENT inspection nml Neck: positive Nml inspection Respiratory: positive Chest non-tender Cardiovascular: positive Regular rate & rhythm Peripheral Pulses: positive 2+ Abdomen: positive Non-tender Skin: positive Color nml Extremities: positive Non-tender Neurologic/Psychiatric: positive Oriented x3 LABS 11/01/24 05:45 11/01/24 16:48 FOLLOW UP Follow Up: With PCP TIME SPENT Time Spent in Discharge (Minutes): 35 Discharge Plan Discharge Patient Disposition: 01 Home, Self Care Condition: Stable Medically Cleared Date:: 11/01/24 Prescriptions: New [place] Rx 1 60 mg iron-1 mg Tablet 1 tab PO DAILY 30 Days Qty: 30 0RF sodium chloride 1,000 mg Tablet,Soluble 2,000 mg PO BID 10 Days Qty: 40 0RF thiamine mononitrate (vit B1) 100 mg Tablet 100 mg PO DAILY 30 Days Qty: 30 0RF Continued sulfamethoxazole-trimethoprim 800-160 mg tablet 1 tab PO BID 7 Days Qty: 14 0RF furosemide 20 mg tablet 20 mg PO QDAY Qty: 30 2RF Activity Restrictions: No Restrictions Diet: Regular Health Concerns: You come into the hospital again with complications of alcohol abuse. You were admitted because your sodium level was low. This has been corrected with IV sodium replacement. You went through alcohol withdrawal and now only have mild tremors. You received antibiotics for an infectious rash in your leg. I am sending you home with salt tablets that I would like for you to take twice daily. Please follow-up with your primary care provider. Please never drink again. I would strongly encourage you go through rehab program but I cannot make you take care of yourself. Print Language: Estonian Patient Instructions: Hyponatremia Dc Stand Alone Forms: PCP List Follow-up Care: Gloria Otto ARNP [Primary Care Provider] -
== END 2024-11-01 20:40 | disposition home or self-care (01) | DRG 641 ==
LOC: ED 17:36 → MS3 21:11
PROVIDERS: ADMIT Physician Assistant Medical; ATTEND Physician Assistant Medical
DX: K74.60 Unspecified cirrhosis of liver; F10.239 Alcohol dependence with withdrawal, unspecified; R44.1 Visual hallucinations; Z85.118 Personal history of other malignant neoplasm of bronchus and lung; R53.1 Weakness; R41.0 Disorientation, unspecified; G93.40 Encephalopathy, unspecified; R15.9 Full incontinence of feces; E87.1 Hypo-osmolality and hyponatremia; R13.10 Dysphagia, unspecified; Z90.2 Acquired absence of lung [part of]; R10.13 Epigastric pain; Z87.891 Personal history of nicotine dependence; I95.9 Hypotension, unspecified; E87.6 Hypokalemia; R64 Cachexia; L03.116 Cellulitis of left lower limb; R60.0 Localized edema; Z66 Do not resuscitate